=== PATIENT | female | born 1945 | race American Indian/Alaskan Native ===

== ENCOUNTER 2017-06-27 21:21 | Inpatient (IN) | payer MEDICARE ==
[2017-06-27 21:34] VITALS: BMI 31.3
--- NOTE | 2017-06-27 22:30 | ED PDOC ---
Arrival/HPI - General Chief Complaint: Weakness/Neurological Deficit Time Seen by Provider: 06/27/17 21:38 Historian: Patient - History of Present Illness Narrative History of Present Illness (Text): 06/27/17 22:30 A 71 year old female, whose past medical history includes diabetes mellitus, hypertension, toe amputation and hyperthyroidism, presents [place] [facility] to the emergency department for evaluation of swollen right upper arm, PICC line in place. Patient denies any other complaints at this time. PMD: Dr. Gilman Symptom Onset: Sudden Symptom Course: Unchanged Activities at Onset: Rest Context: Other ([facility]) Past Medical History - Provider Review Nursing Documentation Reviewed: Yes - Cardiac Hx Cardiac Disorders: No - Pulmonary Hx Respiratory Disorders: No - Neurological Hx Neurological Disorder: No - HEENT Hx HEENT Disorder: No - Renal Hx Renal Disorder: No - Endocrine/Metabolic Hx Endocrine Disorders: Yes Hx Diabetes Mellitus Type 2: Yes - Hematological/Oncological Hx Blood Disorders: No - Integumentary Hx Dermatological Disorder: No - Musculoskeletal/Rheumatological Hx Musculoskeletal Disorders: No - Gastrointestinal Hx Gastrointestinal Disorders: No - Genitourinary/Gynecological Hx Genitourinary Disorders: No - Psychiatric Hx Psychophysiologic Disorder: No Hx Substance Use: No - Surgical History Hx Amputation: Yes (4rd and 4th toe amputation on Lt foot) - Anesthesia Hx Anesthesia: Yes Hx Anesthesia Reactions: No Family/Social History - Physician Review Nursing Documentation Reviewed: Yes Family/Social History: No Known Family HX Smoking Status: Never Smoked Hx Alcohol Use: No Hx Substance Use: No Allergies/Home Meds Allergies/Adverse Reactions: Allergies No Known Allergies Allergy (Unverified 06/27/17 22:20) Review of Systems - Physician Review All systems were reviewed & negative as marked: Yes - Review of Systems Constitutional: absent: Fevers Musculoskeletal: Other (right upper arm swelling) Physical Exam Vital Signs Reviewed: Yes Vital Signs Temp Pulse Resp BP Pulse Ox 06/27/17 21:45 98.9 F 86 18 132/70 98 Temperature: Afebrile Blood Pressure: Normal Pulse: Regular Respiratory Rate: Normal Appearance: Positive for: Well-Appearing, Non-Toxic, Comfortable Pain Distress: None Mental Status: Positive for: Alert and Oriented X 3 - Systems Exam Head: Present: Atraumatic, Normocephalic Pupils: Present: PERRL Extroacular Muscles: Present: EOMI Conjunctiva: Present: Normal Mouth: Present: Moist Mucous Membranes Neck: Present: Normal Range of Motion Respiratory/Chest: Present: Clear to Auscultation, Good Air Exchange. No: Respiratory Distress, Accessory Muscle Use Cardiovascular: Present: Regular Rate and Rhythm, Normal S1, S2. No: Murmurs Abdomen: No: Tenderness, Distention, Peritoneal Signs Back: Present: Normal Inspection Upper Extremity: Present: Other (tenderness and swollen to right arm, greater hand and right humeral area, side of PICC line, warmth to area and mild erythema ) Lower Extremity: Present: Normal Inspection. No: Edema Neurological: Present: GCS=15, CN II-XII Intact, Speech Normal Skin: Present: Warm, Dry, Normal Color. No: Rashes Psychiatric: Present: Alert, Oriented x 3, Normal Insight, Normal Concentration Medical Decision Making ED Course and Treatment: 06/27/17 22:27 Impression: A 71 year old female with right upper arm swelling. Differential Diagnosis included but are not limited to: r/o DVT, cellulitis Plan: -- EKG -- Chest X-ray -- labs -- US upper extremity -- Reassess and disposition Progress Notes: 06/28/17 02:16 EKG: Ordered, reviewed, and independently interpreted the EKG. Rate : 90 BPM Rhythm : NSR Interpretation : inferior infarct, no acute changes Chest X-ray- No acute process, as read by me. US upper extremity showed Negative DVT. Spoke with Dr. Gilman, who agrees and accepts patient to be admitted, Dr. George on consult. - Lab Interpretations Lab Results: 06/27/17 23:25 06/27/17 23:25 Lab Results 06/27/17 23:25: WBC 11.9 H, RBC 3.21 L, Hgb 8.5 L, Hct 26.6 L, MCV 82.9, MCH 26.5, MCHC 32.0, RDW 14.7 H, Plt Count 434, MPV 9.9 06/27/17 23:25: Sodium 144, Potassium 4.2, Chloride 104, Carbon Dioxide 26, Anion Gap 18, BUN 38 H, Creatinine 1.8 H, Est GFR ( Amer) 33, Est GFR ( Non-Af Amer) 28, Random Glucose 126 H, Calcium 9.2, Total Bilirubin 0.5, AST 33 , ALT 19, Alkaline Phosphatase 74, Total Protein 7.4, Albumin 3.5, Globulin 3.9 , Albumin/Globulin Ratio 0.9 L 06/27/17 23:25: PT 14.9 H, INR 1.30 H, APTT 33.8 I have reviewed the lab results: Yes - RAD Interpretation Radiology Orders: 06/27/17 22:21 CHEST PORTABLE [RAD] Stat 06/27/17 22:24 DUPLEX UPPER EXTRM VEIN RIGHT [US] Stat - EKG Interpretation Interpreted by ED Physician: Yes Type: 12 lead EKG - Medication Orders Current Medication Orders: Piperacillin Sod/Tazobactam Sod (Zosyn 2.25 Gm In 0.9% 100 Ml) 2.25 gm in 100 mls @ 100 mls/hr IVPB STAT STA PRN Reason: Protocol Stop: 06/28/17 03:07 Vancomycin HCl (Vancomycin 500mg In Ns) 500 mg in 100 mls @ 200 mls/hr IVPB STAT STA PRN Reason: Protocol Stop: 06/28/17 02:38 - Scribe Statement The provider has reviewed the documentation as recorded by the Eleni Lombardo Provider Scribe Attestation: All medical record entries made by the Scribe were at my direction and personally dictated by me. I have reviewed the chart and agree that the record accurately reflects my personal performance of the history, physical exam, medical decision making, and the department course for this patient. I have also personally directed, reviewed, and agree with the discharge instructions and disposition. Disposition/Present on Arrival - Present on Arrival Any Indicators Present on Arrival: No History of DVT/PE: No History of Uncontrolled Diabetes: No Urinary Catheter: No History of Decub. Ulcer: No History Surgical Site Infection Following: None - Disposition Have Diagnosis and Disposition been Completed?: Yes Diagnosis: Cellulitis, Arm swelling Disposition: HOSPITALIZED Disposition Time: 02:13 Patient Plan: Admission Patient Problems: Current Active Problems Problem Status Onset Arm swelling Acute Cellulitis Acute Condition: STABLE Discharge Instructions (ExitCare): Cellulitis (ED) Referrals: Deisy Gilman MD [Primary Care Provider] - Follow up with primary Forms: [employer] (Malagasy)
[2017-06-27 23:51] LABS: HEMOGLOBIN 8.5 g/dL (12.0-16.0); MEAN CELL VOLUME 82.9 fl (80.0-105.0); MEAN CORPUSCULAR HEMOGLOBIN 26.5 pg (25.0-35.0); MEAN PLATELET VOLUME 9.9 fl (7.0-11.0); RBC 3.21 10^6/uL (3.5-6.1); RED CELL DISTRIBUTION WIDTH 14.7 % (11.5-14.5); WHITE BLOOD COUNT 11.9 10^3/ul (4.5-11.0)
[2017-06-27 23:58] LABS: ALB/GLOB RATIO 0.9 (1.1-1.8); ALBUMIN 3.5 g/dL (3.0-4.8); CALCIUM 9.2 mg/dL (8.4-10.5)
[2017-06-28 00:01] LABS: INR 1.3 (0.93-1.08); PARTIAL THROMBOPLASTIN TIME 33.8 Seconds (25.1-36.5); PROTHROMBIN TIME 14.9 SECONDS (9.4-12.5)
[2017-06-28] MEDS ORDERED: Piperacillin/Tazobact 2.25gm 2.25 GM/100 ML BAG IVPB STA (02:08)
[2017-06-28] MEDS ORDERED: Vancomycin 500mg in NS 500 MG/100 ML BAG IVPB STA (02:09)
--- NOTE | 2017-06-28 07:44 | RAD ---
HISTORY: fever COMPARISON: No prior. FINDINGS: LUNGS: No active pulmonary disease. PLEURA: No significant pleural effusion identified, no pneumothorax apparent. CARDIOVASCULAR: Moderate cardiomegaly OSSEOUS STRUCTURES: No significant abnormalities. VISUALIZED UPPER ABDOMEN: Normal. OTHER FINDINGS: None. IMPRESSION: No active disease.
[2017-06-28] MEDS: Insulin Reg-LOW-Coverage SC SCH ×4 (07:59→23:01)
[2017-06-28] MEDS: Oxycodone/Acetaminophen 5/325 mg Tab PO SCH ×4 (08:12→21:29)
--- NOTE | 2017-06-28 10:11 | US ---
PROCEDURE: Right upper extremity venous US CLINICAL HISTORY: Arm pain and swelling Evaluate for deep venous thrombosis. PHYSICIAN(S): Johnathan Damian M.D FINDINGS: The visualized rightinternal jugular vein is sonographically normal and compressible. No evidence of obstruction or thrombus is seen. The visualized segments of the right subclavian vein are patent with normal waveforms. No sonographic evidence of obstruction or thrombosis is seen. The visualized deep venous system of the proximal right upper extremity is sonographically normal and compressible. A catheter is noted in the right axillary and subclavian veins. No significant perihilar thin catheter thrombus is appreciated IMPRESSION: 1. No sonographic evidence for deep venous thrombosis in the visualized segments of the right upper extremity.
--- NOTE | 2017-06-28 10:53 | CARD ---
APPROVED REPORT EKG Measurement Heart [id number] <Conclusion> Normal sinus rhythm Possible Inferior infarct, age undetermined Abnormal ECG
--- NOTE | 2017-06-28 14:10 | CP.PCM.CON ---
<RexOumar - Last Filed: 06/28/17 14:17> History of Present Illness - History of Present Illness History of Present Illness: A 71 year old female, whose past medical history includes diabetes mellitus, hypertension, toe amputation and hyperthyroidism, [facility] department for evaluation of swollen right upper arm, PICC line in place. Patient denies at the time of the interview was somnolent and unable to complete a full ROS. Surgery was consulted for a sacral wound. PMD: Dr. Gilman PMH: uncontrolled DM2, HTN, dementia All: NKDA meds: see med list PSH: left foot 3rd and 4th digit amps, labial abscess I&D, left ankle surgery Family: non-contributory Social: denies smoking, alcohol, and drugs Review of Systems - Review of Systems Systems not reviewed;Unavailable: Uncooperative Past Patient History - Infectious Disease Hx of Infectious Diseases: None - Past Medical History & Family History Past Medical History?: Yes - Past Social History Smoking Status: Never Smoked - CARDIAC Hx Hypertension: Yes Other/Comment: hyperlipidemia - PULMONARY Hx Respiratory Disorders: No - NEUROLOGICAL Hx Dementia: Yes - HEENT Hx HEENT Problems: No - RENAL Hx Chronic Kidney Disease: No - ENDOCRINE/METABOLIC Hx Diabetes Mellitus Type 2: Yes Hx Hyperthyroidism: Yes - HEMATOLOGICAL/ONCOLOGICAL Hx Blood Disorders: No - INTEGUMENTARY Other/Comment: gangrene to the left foot - MUSCULOSKELETAL/RHEUMATOLOGICAL Hx Musculoskeletal Disorders: Yes Hx Falls: Yes - GASTROINTESTINAL Hx Gastrointestinal Disorders: No - GENITOURINARY/GYNECOLOGICAL Hx Incontinence: Yes - PSYCHIATRIC Hx Psychophysiologic Disorder: No - SURGICAL HISTORY Hx Surgeries: Yes Hx Amputation: Yes Other/Comment: amputation of 3rd and 4th left toes, gangrene to the left foot, I &D on 06/14 - ANESTHESIA Hx Anesthesia: Yes Hx Anesthesia Reactions: No Meds Allergies/Adverse Reactions: Allergies Allergy/AdvReac Type Severity Reaction Status Date / Time No Known Allergies Allergy Verified 01/18/17 12:18 - Medications Medications: Current Medications Acetaminophen (Tylenol 325mg Tab) 650 mg PO Q4H PRN PRN Reason: pain fever Aspirin (Aspirin Chewable) 81 mg PO DAILY [facility] Last Admin: 06/28/17 09:40 Dose: 81 mg Carvedilol (Coreg) 3.125 mg PO Q12H [facility] Last Admin: 06/28/17 08:12 Dose: 3.125 mg Clopidogrel Bisulfate (Plavix) 75 mg PO DAILY [facility] Last Admin: 06/28/17 09:40 Dose: 75 mg Famotidine (Pepcid) 40 mg PO HS [facility] Insulin Human Regular (Humulin R Low) 0 units SC ACHS [facility] PRN Reason: Protocol Last Admin: 06/28/17 12:16 Dose: Not Given Ondansetron HCl (Zofran Inj) 4 mg IVP Q6 PRN PRN Reason: Nausea/Vomiting Oxycodone/Acetaminophen (Percocet 5/325 Mg Tab) 1 tab PO Q6H [facility] Stop: 07/01/17 07:16 Last Admin: 06/28/17 13:39 Dose: 1 tab Pioglitazone HCl (Actos) 45 mg PO DAILY [facility] Last Admin: 06/28/17 09:40 Dose: 45 mg Physical Exam - Head Exam Head Exam: ATRAUMATIC, NORMAL INSPECTION, NORMOCEPHALIC - Eye Exam Eye Exam: EOMI, Normal appearance - ENT Exam ENT Exam: Mucous Membranes Moist - Respiratory Exam Respiratory Exam: NORMAL BREATHING PATTERN - Cardiovascular Exam Cardiovascular Exam: REGULAR RHYTHM - GI/Abdominal Exam GI & Abdominal Exam: Normal Bowel Sounds - Extremities Exam Additional comments: Left foot s/p amputation of toe. Wound vac in place without connection to machine. - Neurological Exam Neurological exam: Altered, CN II-XII Intact - Psychiatric Exam Psychiatric exam: Normal Affect, Normal Mood - Skin Skin Exam: Dry, Intact Results - Vital Signs Recent Vital Signs: Last Vital Signs Temp 98.3 F 06/28/17 08:12 Pulse 82 06/28/17 08:12 Resp 18 06/28/17 08:12 BP 170/82 H 06/28/17 08:12 Pulse Ox 98 06/28/17 08:12 - Labs Result Diagrams: 06/27/17 23:25 06/27/17 23:25 Labs: Laboratory Results - last 24 hr 06/28/17 06:55 POC Glucose (mg/dL) 130 H Assessment & Plan - Assessment and Plan (Free Text) Assessment: 71 year old female with s/p Incision and Drainage.(Stage 1 Ulcer) Plan: -Wound care. -Would recommend Podiatry consult. -Medical management per Primary care. No further surgical intervention at this time. Will discuss with Attending. <Francisca Irene - Last Filed: 06/28/17 14:47> Meds - Medications Medications: Current Medications Acetaminophen (Tylenol 325mg Tab) 650 mg PO Q4H PRN PRN Reason: pain fever Aspirin (Aspirin Chewable) 81 mg PO DAILY [facility] Last Admin: 06/28/17 09:40 Dose: 81 mg Carvedilol (Coreg) 3.125 mg PO Q12H [facility] Last Admin: 06/28/17 08:12 Dose: 3.125 mg Clopidogrel Bisulfate (Plavix) 75 mg PO DAILY [facility] Last Admin: 06/28/17 09:40 Dose: 75 mg Famotidine (Pepcid) 40 mg PO HS [facility] Insulin Human Regular (Humulin R Low) 0 units SC ACHS [facility] PRN Reason: Protocol Last Admin: 06/28/17 12:16 Dose: Not Given Ondansetron HCl (Zofran Inj) 4 mg IVP Q6 PRN PRN Reason: Nausea/Vomiting Oxycodone/Acetaminophen (Percocet 5/325 Mg Tab) 1 tab PO Q6H [facility] Stop: 07/01/17 07:16 Last Admin: 06/28/17 13:39 Dose: 1 tab Pioglitazone HCl (Actos) 45 mg PO DAILY [facility] Last Admin: 06/28/17 09:40 Dose: 45 mg Results - Vital Signs Recent Vital Signs: Last Vital Signs Temp 98.3 F 06/28/17 08:12 Pulse 82 06/28/17 08:12 Resp 18 06/28/17 08:12 BP 170/82 H 06/28/17 08:12 Pulse Ox 98 06/28/17 08:12 - Labs Result Diagrams: 06/27/17 23:25 06/27/17 23:25 Labs: Laboratory Results - last 24 hr 06/28/17 06:55 POC Glucose (mg/dL) 130 H Assessment & Plan - Assessment and Plan (Free Text) Plan: Catheter infection -f/u on catheter tip culture when taken out -Possible PICC replacement by PICC line nurse. KENNA Alvarez <Robbie Alvarez - Last Filed: 06/28/17 15:37> Meds - Medications Medications: Current Medications Acetaminophen (Tylenol 325mg Tab) 650 mg PO Q4H PRN PRN Reason: pain fever Aspirin (Aspirin Chewable) 81 mg PO DAILY [facility] Last Admin: 06/28/17 09:40 Dose: 81 mg Carvedilol (Coreg) 3.125 mg PO Q12H [facility] Last Admin: 06/28/17 08:12 Dose: 3.125 mg Clopidogrel Bisulfate (Plavix) 75 mg PO DAILY [facility] Last Admin: 06/28/17 09:40 Dose: 75 mg Famotidine (Pepcid) 40 mg PO HS [facility] Insulin Human Regular (Humulin R Low) 0 units SC ACHS [facility] PRN Reason: Protocol Last Admin: 06/28/17 12:16 Dose: Not Given Ondansetron HCl (Zofran Inj) 4 mg IVP Q6 PRN PRN Reason: Nausea/Vomiting Oxycodone/Acetaminophen (Percocet 5/325 Mg Tab) 1 tab PO Q6H [facility] Stop: 07/01/17 07:16 Last Admin: 06/28/17 13:39 Dose: 1 tab Pioglitazone HCl (Actos) 45 mg PO DAILY [facility] Last Admin: 06/28/17 09:40 Dose: 45 mg Results - Vital Signs Recent Vital Signs: Last Vital Signs Temp 98.3 F 06/28/17 08:12 Pulse 82 06/28/17 08:12 Resp 18 06/28/17 08:12 BP 170/82 H 06/28/17 08:12 Pulse Ox 98 06/28/17 08:12 - Labs Result Diagrams: 06/27/17 23:25 06/27/17 23:25 Labs: Laboratory Results - last 24 hr 06/28/17 06:55 POC Glucose (mg/dL) 130 H Assessment & Plan - Assessment and Plan (Free Text) Assessment: DX Stage I Sacral Ulcer R arm swelling 1 day post PICC Gangrene Foot AVELINO Remove R PICC Insert New L PICC Cons Rx sacrum Doppler Arterial studies aems/Legs No surgery needed now This consult done under my direct supervision Star Alvarez MD FACS
--- NOTE | 2017-06-28 18:36 | US ---
HISTORY: Arm pain and swelling. Evaluate for deep venous thrombosis. PHYSICIAN(S): Johnathan Damian MD. FINDINGS: The visualized internal jugular veins are sonographically normal and compressible. No evidence of obstruction or thrombus this is seen. The visualized segments of the subclavian veins are patent with normal waveforms. No sonographic evidence of obstruction or thrombosis is seen. The visualized deep venous systems of both upper extremities proximally are sonographically normal and compressible. A catheter is present in the right axillary and subclavian vein. No significant catheter-associated thrombus is seen. IMPRESSION: 1. No sonographic evidence for deep venous thrombosis in the visualized segments of both upper strategies.
--- NOTE | 2017-06-28 18:38 | US ---
PROCEDURE: Lower extremity AMISHA exam HISTORY: Peripheral vascular disease with ischemic pain. Diabetes. PHYSICIAN(S): Johnathan Damian MD. FINDINGS: The right resting AMISHA is normal, 0.96. The left resting AMISHA is mildly abnormal, 0.77 The high thigh pressures and waveforms are relatively normal. The left calf PVR waveform is normal and augments normally. The right calf PVR waveform is relatively normal but does not augment. This could represent subtle right SFA occlusive disease. The ankle PVR waveforms are relatively normal. There is a significant pressure gradient below the left knee. This likely represents left tibial occlusive disease IMPRESSION: 1. Mildly abnormal left AMISHA at rest. 2. Eft tibial occlusive disease. 3. Possible subtle right SFA occlusive disease.
[2017-06-29] MEDS: Insulin Reg-LOW-Coverage SC SCH ×4 (08:23→22:07)
[2017-06-29] MEDS: Oxycodone/Acetaminophen 5/325 mg Tab PO SCH ×3 (08:34→22:02)
--- NOTE | 2017-06-29 09:57 | CON ---
DATE: LOCATION: Patient is seen here today in room 570, bed 1. Patient's son is present in the room. CHIEF COMPLAINT: Right arm swelling times 1 day duration. HISTORY OF PRESENT ILLNESS: This is a 71-year-old female halfway patient with diabetes mellitus, hypertension, toe amputation, , dementia who has had a PICC line placement in her right arm and the patient's arm became swelled up after the placement of the PICC line. Patient did have another PICC line prior to that. Intravenous antibiotics were given because of patient's foot infection. No fevers, no chills, no nausea, no vomiting or chills. Patient does have cough, just the right arm swelling. REVIEW OF SYSTEMS: Twelve-point review of systems is performed. PAST MEDICAL HISTORY: Significant for diabetes mellitus, hypertension, toe amputation, hyperthyroidism and dementia. PAST SURGICAL HISTORY: Significant for left foot surgery, third and fourth digit amputation, labial abscess drainage, left ankle fracture. ALLERGIES: PATIENT HAS NO KNOWN ALLERGIES. MEDICATIONS AT HOME: Reviewed. PHYSICAL EXAMINATION: VITAL SIGNS: On exam, patient's temperature is 98, blood pressure is 115/70, respiratory rate of 20, heart rate of 68. HEENT: Unremarkable. NECK: Supple. LUNGS: Have decreased breath sounds. HEART: Normal S1 and S2. ABDOMEN: Soft, nontender. No rebound or guarding. EXTREMITIES: On examination of arm, there is swelling. There is no evidence of erythema or discharge. No evidence of infection. LABORATORY DATA: Reveals patient's white count is 11,900, hemoglobin 8.5, platelets of 434. BUN of 38, creatinine of 1.8. Arterial ultrasound shows tibial occlusive disease lower extremities. Ultrasound of the veins, no evidence of DVT in both extremities. Dr. Robbie Alvarez' progress note and consultation note were reviewed. Chest x-ray is ordered to be negative and Emergency Room chart is reviewed, seen by Dr. Kamari Long. REVIEW OF MEDICATIONS: Revealed the patient received dose of vancomycin. ASSESSMENT AND PLAN: A 71-year-old female, halfway patient with diabetes mellitus, hypertension, toe amputation, hyperthyroidism, dementia, now with a arm swelling from PICC line which is to be removed today, also had a right foot gangrene. We will discuss with Podiatry regarding foot infection and foot gangrene. Patient was given dose of vancomycin, I am awaiting for blood culture results and clinical resolution of the arm as the PICC line will be removed. Asim George MD
--- NOTE | 2017-06-29 10:27 | CP.PCM.PN ---
Subjective - Date & Time of Evaluation Date of Evaluation: 06/29/17 Time of Evaluation: 10:26 - Subjective Subjective: Patient seen and examined at bedside. Per nursing no acute events occurred overnight. Patient denies any fevers, chills, nausea, vomiting, headache, abdominal pain, syncopal episodes, chest pain, or any other complaints. Objective - Vital Signs/Intake and Output Vital Signs (last 24 hours): Temp Pulse Resp BP Pulse Ox 98.2 F 89 20 156/73 H 95 06/29/17 06:00 06/29/17 06:00 06/29/17 06:00 06/29/17 06:00 06/29/17 06:00 Intake and Output: 06/29/17 06/29/17 06:59 18:59 Intake Total 480 Balance 480 - Medications Medications: Current Medications Acetaminophen (Tylenol 325mg Tab) 650 mg PO Q4H PRN PRN Reason: pain fever Aspirin (Aspirin Chewable) 81 mg PO DAILY [facility] Last Admin: 06/28/17 09:40 Dose: 81 mg Carvedilol (Coreg) 3.125 mg PO Q12H [facility] Last Admin: 06/29/17 08:34 Dose: Not Given Clopidogrel Bisulfate (Plavix) 75 mg PO DAILY [facility] Last Admin: 06/28/17 09:40 Dose: 75 mg Collagenase (Santyl) 0 gm TOP DAILY [facility] Stop: 07/05/17 23:00 Famotidine (Pepcid) 40 mg PO HS [facility] Last Admin: 06/28/17 21:23 Dose: 40 mg Insulin Human Regular (Humulin R Low) 0 units SC ACHS [facility] PRN Reason: Protocol Last Admin: 06/29/17 08:23 Dose: Not Given Mupirocin (Bactroban Ointment) 0 gm TOP QD7 [facility] Ondansetron HCl (Zofran Inj) 4 mg IVP Q6 PRN PRN Reason: Nausea/Vomiting Oxycodone/Acetaminophen (Percocet 5/325 Mg Tab) 1 tab PO Q6H [facility] Stop: 07/01/17 07:16 Last Admin: 06/29/17 08:34 Dose: Not Given Pioglitazone HCl (Actos) 45 mg PO DAILY [facility] Last Admin: 06/28/17 09:40 Dose: 45 mg - Labs Labs: PT 14.9 SECONDS (9.4-12.5) H 06/27/17 23:25 INR 1.30 (0.93-1.08) H 06/27/17 23:25 APTT 33.8 Seconds (25.1-36.5) 06/27/17 23:25 - Head Exam Head Exam: ATRAUMATIC, NORMAL INSPECTION, NORMOCEPHALIC - Eye Exam Eye Exam: EOMI, Normal appearance - ENT Exam ENT Exam: Mucous Membranes Moist - Respiratory Exam Respiratory Exam: NORMAL BREATHING PATTERN - Cardiovascular Exam Cardiovascular Exam: REGULAR RHYTHM - GI/Abdominal Exam GI & Abdominal Exam: Normal Bowel Sounds - Extremities Exam Extremities Exam: Full ROM Additional comments: mputation of 3rd and 4th left toes, gangrene to the left foot, I&D on 06/14 - Back Exam Back Exam: NORMAL INSPECTION - Neurological Exam Neurological Exam: Alert, Awake - Psychiatric Exam Psychiatric exam: Normal Affect, Normal Mood - Skin Skin Exam: Dry, Intact Assessment and Plan - Assessment and Plan (Free Text) Plan: -f/u on catheter tip culture. -Podiatry to place Wound Vac -No surgical intervention at this time. KENNA Pichardo
[2017-06-29] MEDS: Collagenase 250 Units/gm Ointment(30 gm) TOP SCH (11:04)
--- NOTE | 2017-06-29 12:12 | RAD ---
PROCEDURE: Radiographs of the Right Shoulder HISTORY: pain COMPARISON: No prior. FINDINGS: BONES: Normal. No fracture. JOINTS: Normal. Glenohumeral and acromioclavicular joints preserved. No osteoarthritis. SOFT TISSUES: Normal. OTHER FINDINGS: None. IMPRESSION: Normal radiographs of the right shoulder.
--- NOTE | 2017-06-29 12:17 | RAD ---
PROCEDURE: Left Foot Radiographs. HISTORY: diabetic left foot ulcer COMPARISON: None. FINDINGS: BONES: Erosive changes are seen in the heads of the 3rd 4th and 5th metatarsals. The 4th toe has been amputated. The 5th toe is dislocated. There is bony erosion of the 3rd toe. Degenerative changes are seen in the 1st and 2nd MTP joints JOINTS: As above SOFT TISSUES: Normal. OTHER FINDINGS: None. IMPRESSION: As above
[2017-06-29] MEDS ORDERED: Bupivacaine 0.5% Inj(30mL) IJ ONE (13:25)
[2017-06-29] MEDS ORDERED: MethylPREDNISolone Depo 40 mg/ml Inj IM ONE (13:25)
--- NOTE | 2017-06-29 17:24 | CON ---
DATE: HISTORY OF PRESENT ILLNESS: A 71-year-old diabetic female seen at bedside for consultation, evaluation, and management of a chronic diabetic left lateral foot ulceration. The patient has wound VAC dressing in place, but the wound VAC machine is not present. She was admitted for swollen right upper arm. PAST MEDICAL HISTORY: The patient's medical history is significant for longstanding uncontrolled insulin-dependent diabetes with peripheral arterial disease and peripheral neuropathy, essential hypertension, morbid obesity, hyperthyroidism. ALLERGIES: THE PATIENT HAS NO KNOWN DRUG ALLERGIES. HOME MEDICATIONS: Noted and in the MAR. PAST SURGICAL HISTORY: Includes digital amputations on the left foot. SOCIAL HISTORY: The patient reports that she never smoked, never drank alcohol, never used illicit drugs. FAMILY HISTORY: Unremarkable. PHYSICAL EXAMINATION: VITAL SIGNS: Reveal temperature of 92.8, pulse rate of 89, blood pressure of 156/73, respiratory rate of 20. EXTREMITIES: Nonpalpable pedal pulses noted bilaterally. Absent pedal hair growth noted bilaterally. The patient is unable to detect 5.07 g monofilament wire testing bilaterally. Lower extremity skin presents thin, shining, and discolored bilaterally. There is noted to be a full-thickness ulceration that encompasses the entire dorsal lateral aspect of the left foot. Base of the ulceration is primarily granular, but there is some fibrotic tissue at the proximal portion of the wound and along the periphery. The periphery has become macerated secondary to wound VAC application. There is no purulence. The wound does not probe to tendon or bone. There are no signs of abscess formation or localized cellulitis, and there are no signs of ascending cellulitis. LABORATORY FINDINGS: Reveal white count 11.9, hemoglobin of 8.5, hematocrit of 26.6, platelet count of 434. The arterial Doppler's reveal mildly abnormal left AMISHA and tibial occlusive disease as well as right SFA occlusive disease. ASSESSMENT: Full-thickness left diabetic foot ulceration. PLAN: The patient's foot was examined. Culture was taken and submitted for sensitivity. X-rays were ordered to rule out osteomyelitis of the underlying osseous structures. We will order foam Multi Podus boots to offload both heels. We will order Santyl ointment to be applied to the wound to enzymatically debride the fibrotic tissue. The wound was cleansed with normal sterile saline and application of Adaptic, Santyl, and dry sterile dressing was applied. We will await x-ray results. Recommend infectious disease consult to evaluate culture and sensitivity results. Recommend vascular consult with Dr. Johnathan Damian to evaluate arterial Doppler's and determine if vascular intervention is warranted. Harrison Trujillo DPM [facility] # [id number]
[2017-06-29] MEDS: Nystatin 100,000 Units/gm Topical Pow(15 gm) TOP SCH (18:08)
--- NOTE | 2017-06-29 20:51 | HP ---
DATE OF EXAM: 06/28/2017 The patient is a 71-year-old female. The patient was seen and examined on 06/28/2017 in her room. CHIEF COMPLAINT: Swelling of the extremities. HISTORY OF PRESENT ILLNESS: Ms. Tamy Abbott is 71 years old female, has history of diabetes mellitus, hypertension, toes amputation, hyperthyroidism, was getting rehab in [facility], has swelling of the left upper extremity with PICC line done. We sent the patient to the emergency department for evaluation of swollen right upper extremity, PICC line is in place. The patient denies any complaints. No nausea, vomiting, or diarrhea. No headache. No dizziness. PAST MEDICAL HISTORY: Diabetes mellitus type 2, amputation of fourth toe of the left foot. FAMILY HISTORY: Father and mother, noncontributory. HABITS: Never smoked. No ethanol or drug use. ALLERGIES: THE PATIENT IS NOT ALLERGIC WITH ANY MEDICATIONS. HOME MEDICATIONS: Reviewed by me. REVIEW OF SYSTEMS: The patient has swelling of the upper extremity, had wound VAC on the foot. No fever, no chills. No nausea, vomiting or diarrhea. No hematuria, no hematochezia. No headache or dizziness. The patient is very poor historian. PHYSICAL EXAMINATION: VITAL SIGNS: Temperature 98.9, pulse 86, respirations 18, blood pressure 132/70 , pulse oximetry 98%. HEENT: Head normocephalic, atraumatic. Eyes: PERRLA. Extraocular muscles intact. Conjunctivae clear. Nose patent. Mucous membrane moist. NECK: Supple. No carotid bruit. No JVD or thyromegaly. CHEST: Bilaterally symmetrical. HEART: S1 and S2 positive. LUNGS: Clear to auscultation. ABDOMEN: Soft. Bowel sounds positive. No organomegaly. EXTREMITIES: Tenderness, swelling of the right arm, greater in the hand, right humeral area, site of the PICC line warm to the area and mild erythema. Lower extremities, no edema. NEUROLOGICAL: The patient is awake, alert. Moving all four extremities, following simple commands. LABORATORY DATA: White blood cell is 11.9, hemoglobin 8.5, hematocrit 26.6, and platelets 434. Sodium 144, potassium 4.2. BUN 13, creatinine 1.8. Glucose 126. ASSESSMENT: Ms. Tamy Abbott is 71 years old lady with leukocytosis, anemia, renal insufficiency, hyperglycemia. We admitted the patient, gave Zosyn, vancomycin. Admitting diagnosis is cellulitis of the right upper extremity, swollen right upper extremity. The patient has history of diabetes mellitus, uncontrolled, hypertension, toes amputation, hyperthyroidism, left foot third and fourth digit amputated, history of labial abscess incision and drainage, left ankle surgery, stage I sacral ulcer, gangrene of foot. RECOMMENDATIONS: Remove the PICC line. Insert new PICC line. Wound care of the sacrum. Doppler arterial studies and labs. According to surgeon, no surgery is needed right now. ID is on the case for antibiotics. Podiatry, Dr. Anderson is on the case. GI and DVT prophylaxis. Repeat labs. We will follow up. Deisy Gilman MD
[2017-06-29] MEDS ORDERED: Vancomycin 1gm in NS 250ml 1 GM/250 ML BAG IVPB STA (21:30)
--- NOTE | 2017-06-29 21:35 | CP.PCM.PN ---
Subjective - Date & Time of Evaluation Date of Evaluation: 06/29/17 Time of Evaluation: 13:25 - Subjective Subjective: No fevers, not in distress. Objective - Vital Signs/Intake and Output Vital Signs (last 24 hours): Temp Pulse Resp BP Pulse Ox 98.0 F 97 H 20 176/76 H 100 06/29/17 14:00 06/29/17 18:09 06/29/17 14:00 06/29/17 18:09 06/29/17 14:00 Intake and Output: 06/29/17 06/30/17 18:59 06:59 Intake Total 840 Balance 840 - Medications Medications: Current Medications Acetaminophen (Tylenol 325mg Tab) 650 mg PO Q4H PRN PRN Reason: pain fever Aspirin (Aspirin Chewable) 81 mg PO DAILY [facility] Last Admin: 06/29/17 12:50 Dose: 81 mg Carvedilol (Coreg) 3.125 mg PO Q12H [facility] Last Admin: 06/29/17 18:09 Dose: 3.125 mg Clopidogrel Bisulfate (Plavix) 75 mg PO DAILY [facility] Last Admin: 06/29/17 12:51 Dose: 75 mg Collagenase (Santyl) 0 gm TOP DAILY [facility] Stop: 07/05/17 23:00 Last Admin: 06/29/17 11:04 Dose: Not Given Famotidine (Pepcid) 40 mg PO HS [facility] Last Admin: 06/28/17 21:23 Dose: 40 mg Insulin Human Regular (Humulin R Low) 0 units SC ACHS [facility] PRN Reason: Protocol Last Admin: 06/29/17 16:46 Dose: Not Given Mupirocin (Bactroban Ointment) 0 gm TOP QD7 [facility] Nystatin (Nystop Topical Powder) 0 gm TOP BID [facility] Last Admin: 06/29/17 18:08 Dose: 1 applic Ondansetron HCl (Zofran Inj) 4 mg IVP Q6 PRN PRN Reason: Nausea/Vomiting Oxycodone/Acetaminophen (Percocet 5/325 Mg Tab) 1 tab PO Q6H [facility] Stop: 07/01/17 07:16 Last Admin: 06/29/17 12:51 Dose: 1 tab Pioglitazone HCl (Actos) 45 mg PO DAILY [facility] Last Admin: 06/29/17 12:50 Dose: 45 mg - Labs Labs: PT 14.9 SECONDS (9.4-12.5) H 06/27/17 23:25 INR 1.30 (0.93-1.08) H 06/27/17 23:25 APTT 33.8 Seconds (25.1-36.5) 06/27/17 23:25 - Constitutional Appears: Chronically Ill - Head Exam Head Exam: NORMAL INSPECTION - Cardiovascular Exam Cardiovascular Exam: +S1, +S2 - GI/Abdominal Exam GI & Abdominal Exam: Soft. absent: Tenderness Assessment and Plan - Assessment and Plan (Free Text) Plan: Assessment right foot dry gangrene with ulceration upper extremity swelling S/P PICC line removal DM HTN hyperthyroidism dementia Plan gave another dose of IV Vancomycin and follow up wound cx and xrays of the foot to rule out osteomyelitis; follow up further plans of Podiatry will monitor clinically
[2017-06-30] MEDS: Oxycodone/Acetaminophen 5/325 mg Tab PO SCH ×3 (01:06→14:21)
--- NOTE | 2017-06-30 01:33 | CON ---
DATE: 06/29/2017 ORTHOPEDIC CONSULTATION LOCATION: A 71-year-old female, in room 570, bed 1. HISTORY OF PRESENT ILLNESS: The patient has been suffering from right shoulder pain after a procedure twisted her right shoulder. X-ray shows mild osteoarthritis suggesting subacromial impingement and bursitis. She has point tenderness to the subacromial joint of the dominant right shoulder, increased pain with range of motion. I injected her with Depo-Medrol and Marcaine. There is no fluid in the shoulder, so the Depo-Medrol should help the inflammation and help her do physical therapy. FINAL DIAGNOSES: Bursitis and mild arthritis of the right shoulder, and injected Depo-Medrol and Marcaine. Raúl Melgoza DO
[2017-06-30 06:33] LABS: HEMOGLOBIN 8.5 g/dL (12.0-16.0); MEAN CELL VOLUME 82.7 fl (80.0-105.0); MEAN CORPUSCULAR HEMOGLOBIN 25.8 pg (25.0-35.0); MEAN CORPUSCULAR HGB CONC 31.3 g/dl (31.0-37.0); MEAN PLATELET VOLUME 9.4 fl (7.0-11.0); RBC 3.29 10^6/uL (3.5-6.1); RED CELL DISTRIBUTION WIDTH 14.7 % (11.5-14.5); WHITE BLOOD COUNT 9.4 10^3/ul (4.5-11.0)
[2017-06-30 06:42] VITALS: BP 174/85
[2017-06-30 07:04] LABS: CALCIUM 9.2 mg/dL (8.4-10.5)
[2017-06-30 07:37] VITALS: RESP 20
[2017-06-30] MEDS: Insulin Reg-LOW-Coverage SC SCH ×2 (08:00→14:21)
[2017-06-30] MEDS: Collagenase 250 Units/gm Ointment(30 gm) TOP SCH (09:00)
[2017-06-30] MEDS ORDERED: Enoxaparin 40 mg Syringe SC SCH (10:00)
[2017-06-30] MEDS: Nystatin 100,000 Units/gm Topical Pow(15 gm) TOP SCH (10:37)
--- NOTE | 2017-06-30 11:21 | PN ---
DATE: 06/29/2017 SUBJECTIVE: The patient is a 71-year-old female. The patient was seen and examined on the bedside on 06/29/2017, looking comfortable. No nausea, vomiting or diarrhea. No hematuria or hematochezia. No headache or dizziness. No chest pain, no palpitations. Looking comfortable except that pain in the left shoulder, range of motion is decreased. Has PICC line. PHYSICAL EXAMINATION: VITAL SIGNS: Temperature 98, pulse 97, respiratory rate 20, blood pressure 176/76, pulse oximetry 100. HEENT: Head: Normocephalic, atraumatic. Eyes: PERRLA. Extraocular muscles intact. Conjunctivae clear. Nose patent. Mucous membrane moist. NECK: Supple. No carotid bruit. No JVD or thyromegaly. CHEST: Bilaterally symmetrical. HEART: S1 and S2 positive. LUNGS: Clear to auscultation. ABDOMEN: Soft. Bowel sounds positive. No organomegaly. EXTREMITIES: No edema. No cyanosis. Right shoulder range of motion is decreased. Has PICC line. Foot has wound VAC. MEDICATIONS: Tylenol, aspirin, Coreg, Plavix, fentanyl, Pepcid, nystatin, Zofran, oxycodone, Actos. LABORATORY DATA: INR is 1.30, PT 14.9, APTT 33.8. ASSESSMENT AND PLAN: Ms. Tamy Abbott is a 71-year-old lady with right foot dry gangrene with ulceration, upper extremity swelling, has PICC line removal, diabetes mellitus, hypertension, hyperthyroidism, dementia. Got vancomycin. We will follow up wound culture and x-ray of the foot to rule out osteomyelitis and Podiatry is on the case. Seen by Dr. Melgoza for shoulder pain. X-ray shows osteoarthritis suggesting subacromial impingement and bursitis. She has point tenderness over the subacromial joint of the dominant right shoulder, increased pain with range of motion. Dr. Melgoza injected her with Depo-Medrol and Marcaine. There is no fluid in the shoulder, so the Depo-Medrol should be helpful in the inflammation, help her do physical therapy. Gastrointestinal and deep venous thrombosis prophylaxis. Repeat labs. We will follow up. Deisy Gilman MD [facility] # [id number]
[2017-06-30 11:22] LABS: IRON 19 ug/dL (45-180)
[2017-06-30 11:31] LABS: % IRON SATURATION 10 % (20-55); TOTAL IRON BINDING CAPACITY 192 ug/dL (265-497)
--- NOTE | 2017-06-30 13:14 | PN ---
DATE: 06/30/2017 SUBJECTIVE: A 71-year-old diabetic female seen at bedside for continued evaluation and management of a chronic diabetic left lateral foot ulceration. The patient is reporting no pain at the ulceration site. She has been afebrile. The patient's vital signs revealed a temperature of 98, blood pressure 174/85, respiratory rate of 20, pulse rate of 93. Laboratory findings revealed white count of 9.4, down from 11.9 yesterday; hemoglobin of 8.5; hematocrit of 27.2; platelet count of 481. X-rays taken of the left foot revealed erosive changes adhered to the third, fourth and fifth metatarsals. Fourth toe has been amputated. Fifth toe was dislocated, but there are no radiographic signs of osteomyelitis at this time. Microbiology reports no organisms preliminarily of the left foot ulceration. OBJECTIVE: Nonpalpable pedal pulses noted bilaterally. Absent pedal hair growth noted bilaterally. The patient is unable to detect 5.07 g monofilament wire testing bilaterally. There is noted to be a full-thickness ulceration that encompasses the entire dorsolateral aspect of the left foot and base of the ulceration remains primarily granular with moderate clear serous drainage. The proximal portion of the wound has presence of fibrotic tissue. The wound does not probe to tendon or bone. There is no underlying abscess formation. There is no sinus tracking noted. ASSESSMENT: Full-thickness left diabetic foot ulceration. PLAN: There is noted to be a wound VAC machine placed at bedside; however, the patient was brought in with a wound VAC placement, but no longer requires wound VAC management at this time as the wound has been granulating in nicely and there is no sinus tracks noted. Culture results were reviewed. X-rays were reviewed. Multi Podus boots were in place. The wound was cleansed with normal sterile saline. We will continue to apply Santyl ointment to the fibrotic tissue along with a nonadherent sterile dressing and a dry sterile dressing daily. The patient will be seen and followed daily. Harrison Trujillo DPM
[2017-06-30 16:48] VITALS: PULSE 99; TEMP 98.2; O2SAT 100
[2017-06-30 18:59] LABS: FOLATE 15.8 ng/mL
--- NOTE | 2017-07-01 08:04 | PN ---
DATE: 06/30/2017 SUBJECTIVE: The patient was seen earlier this morning in room 570, bed 1. Her arm is completely normalized. The edema has gone down. She has able to flex and extend her right hand. PHYSICAL EXAMINATION: VITAL SIGNS: Temperature is 98, blood pressure is 170/80, respiratory rate of 20, heart rate of 93. HEENT: Unremarkable. NECK: Supple. LUNGS: Have decreased breath sounds. HEART: Normal S1 and S2. ABDOMEN: Soft, nontender. LABORATORY DATA: Reveals a white count of 9.4, hemoglobin of 8. Chemistries reveals BUN of 33, creatinine of 1.7 and coagulation is noted. Microbiology reveals left foot, no growth. Blood cultures, no growth. ASSESSMENT AND PLAN: This is a 71-year-old female with right foot dry gangrene and ulceration, upper extremity swelling, status post peripherally inserted central catheter line removal, diabetic, hypertensive, hyperthyroidism, dementia. Continue antibiotics as recommended by Dr. Kuo for foot infection and to be followed up with him and infectious disease doctor requests hospital and . Asim George MD
== END 2017-06-30 17:49 | DRG 315 ==
LOC: ED 21:21 → MERGE 06-28 02:10 → ERH 06-28 02:10 → 5RSO 06-28 05:20
PROVIDERS: ADMIT Internal Medicine; ATTEND Internal Medicine
PROC: 02HV33Z Insertion of Infusion Device into Superior Vena Cava, Percutaneous Approach (ICD-10-PCS; principal; 2017-06-28)
PROC: B548ZZA Ultrasonography of Superior Vena Cava, Guidance (ICD-10-PCS; 2017-06-28)
PROC: 02PYX3Z Removal of Infusion Device from Great Vessel, External Approach (ICD-10-PCS; 2017-06-28)
PROC: 3E0U33Z Introduction of Anti-inflammatory into Joints, Percutaneous Approach (ICD-10-PCS; 2017-06-29)
PROC: 3E0U3BZ Introduction of Anesthetic Agent into Joints, Percutaneous Approach (ICD-10-PCS; 2017-06-29)
DX: T80.212A Local infection due to central venous catheter, initial encounter (principal); L03.113 Cellulitis of right upper limb; E11.52 Type 2 diabetes mellitus with diabetic peripheral angiopathy with gangrene; I10 Essential (primary) hypertension; E11.65 Type 2 diabetes mellitus with hyperglycemia; E11.42 Type 2 diabetes mellitus with diabetic polyneuropathy; E11.621 Type 2 diabetes mellitus with foot ulcer; L97.529 Non-pressure chronic ulcer of other part of left foot with unspecified severity; L97.519 Non-pressure chronic ulcer of other part of right foot with unspecified severity; L98.429 Non-pressure chronic ulcer of back with unspecified severity; D64.9 Anemia, unspecified; E05.90 Thyrotoxicosis, unspecified without thyrotoxic crisis or storm; F03.90 Unspecified dementia, unspecified severity, without behavioral disturbance, psychotic disturbance, mood disturbance, and anxiety; M19.011 Primary osteoarthritis, right shoulder; M75.51 Bursitis of right shoulder; Z79.4 Long term (current) use of insulin; Y84.8 Other medical procedures as the cause of abnormal reaction of the patient, or of later complication, without mention of misadventure at the time of the procedure; Z89.422 Acquired absence of other left toe(s)

== ENCOUNTER 2017-07-14 21:42 | Inpatient (IN) | payer MEDICARE ==
--- NOTE | 2017-07-14 22:16 | ED PDOC ---
Arrival/HPI - General Chief Complaint: Altered Mental Status Time Seen by Provider: 07/14/17 21:45 Historian: Patient, Alf - History of Present Illness Narrative History of Present Illness (Text): 07/14/17 22:16 A 71 year old female, whose past medical history includes diabetes mellitus, hypertension, toe amputation and hyperthyroidism, is brought into the emergency department complaining via EMS from assisted for poor responsiveness. The patient is currently being treated with IV antibiotics following the amputation of 2 toes of the left foot. When asked, patient does not recollect what happened to her. Patient just keeps saying "they cut my toes off". She denies any shortness of breath or chest pain. Patient is a poor historian. PMD: Dr. iGlman Time/Duration: Other (Today) Symptom Onset: Sudden Symptom Course: Unchanged Activities at Onset: Rest, Light Context: Home (Alf) Past Medical History - Provider Review Nursing Documentation Reviewed: Yes - Infectious Disease Hx of Infectious Diseases: None - Cardiac Hx Cardiac Disorders: Yes (HTN, high cholesterol) - Pulmonary Hx Respiratory Disorders: No - Neurological Hx Dementia: Yes - HEENT Hx HEENT Disorder: No - Renal Hx Renal Disorder: No - Endocrine/Metabolic Hx Diabetes Mellitus Type 2: Yes - Hematological/Oncological Hx Blood Disorders: No - Integumentary Hx Dermatological Disorder: Yes - Musculoskeletal/Rheumatological Hx Musculoskeletal Disorders: Yes Hx Falls: Yes - Gastrointestinal Hx Gastrointestinal Disorders: No - Genitourinary/Gynecological Hx Incontinence: Yes - Psychiatric Hx Psychophysiologic Disorder: No Hx Substance Use: No - Surgical History Other/Comment: labial abscess removed-incision and drainage. left leg. left foot. 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 - Anesthesia Hx Anesthesia: Yes Hx Anesthesia Reactions: No - Suicidal Assessment Feels Threatened In Home Enviroment: No Family/Social History - Physician Review Nursing Documentation Reviewed: Yes Family/Social History: No Known Family HX Smoking Status: Never Smoked Hx Alcohol Use: No Hx Substance Use: No Allergies/Home Meds Allergies/Adverse Reactions: Allergies No Known Allergies Allergy (Verified 01/18/17 12:18) Home Medications: Home Meds Medication Instructions Recorded Confirmed Aspirin [Ecotrin] 81 mg PO DAILY 01/18/17 06/14/17 Insulin Degludec [Tresiba 30 unit SC HS 01/18/17 06/14/17 Flextouch U-200] Pioglitazone [Actos] 45 mg PO DAILY 01/18/17 06/14/17 Propranolol HCl 10 mg PO Q8 06/14/17 06/14/17 Aspirin [Sullivan Aspirin] 81 mg PO DAILY 06/28/17 06/28/17 Carvedilol [Coreg] 3.125 mg PO Q12H 06/28/17 06/28/17 Clopidogrel [Plavix] 75 mg PO DAILY 06/28/17 06/28/17 Meropenem [Merrem IV] 1 gm IVPB Q8H 06/28/17 06/28/17 Pioglitazone [Actos] 45 mg PO DAILY 06/28/17 06/28/17 Vancomycin 1 GM [Vancomycin 1GM in 1,250 mg IVPB DAILY 06/28/17 06/28/17 Normal Saline Addvantage] oxyCODONE/Acetaminophen [Percocet 1 tab PO Q6H 06/28/17 06/28/17 5/325 mg Tab] Review of Systems - Physician Review All systems were reviewed & negative as marked: Yes - Review of Systems Respiratory: absent: SOB Cardiovascular: absent: Chest Pain Physical Exam Vital Signs Reviewed: Yes Vital Signs Temp Pulse Resp BP Pulse Ox 07/15/17 01:27 84 18 175/83 H 100 07/14/17 22:01 98.4 F 87 18 189/88 H 97 Temperature: Afebrile Blood Pressure: Normal Pulse: Regular Respiratory Rate: Normal Appearance: Positive for: Well-Appearing, Non-Toxic, Comfortable Pain Distress: None Mental Status: Positive for: Alert and Oriented X 3 (Alert and Oriented x2 ( place and person)) - Systems Exam Head: Present: Atraumatic, Normocephalic Pupils: Present: PERRL Extroacular Muscles: Present: EOMI Conjunctiva: Present: Normal Mouth: Present: Moist Mucous Membranes Neck: Present: Normal Range of Motion Respiratory/Chest: Present: Clear to Auscultation, Good Air Exchange. No: Respiratory Distress, Accessory Muscle Use Cardiovascular: Present: Regular Rate and Rhythm, Normal S1, S2. No: Murmurs Abdomen: No: Tenderness, Distention, Peritoneal Signs Back: Present: Normal Inspection Upper Extremity: Present: Swelling (Swelling to right hand (old)), Other Lower Extremity: Present: Other (Patient has amputated 3rd and 4th digits of left foot. No discharge noted.) Neurological: Present: GCS=15, CN II-XII Intact, Speech Normal, Other (Patient awake, alert. No focal neurological deficits. ) Skin: Present: Warm, Dry, Normal Color. No: Rashes Psychiatric: Present: Alert, Oriented x 3, Normal Insight, Normal Concentration Medical Decision Making ED Course and Treatment: 07/14/17 22:24 Impression: A 71 year old female presents to the emergency department via EMS from assisted for unresponsiveness. Plan: -- Head CT -- EKG -- Chest X-Ray -- Blood/ Urine Culture -- Urinalysis -- IV Fluids -- Labs -- Reassess and disposition Progress Notes: EKG: Ordered, reviewed, and independently interpreted the EKG. Rate : 85 BPM Rhythm : NSR Interpretation : Non-specific T-wave changes. 07/15/17 00:20: Chest X-Ray read and interpreted by me shows no acute processes. 07/15/17 00:50: Case discussed in detail with Dr. Gilman who accepts patient to her service. Requests Dr. Pack and Dr. Burks on consult. CT Head Without Intravenous Contrast Dictated and Authenticated by: Jodi Fuentes MD 07/15/2017 1:28 AM Eastern Time ([place] & [place]) IMPRESSION: No evidence of an acute intracranial hemorrhage, midline shift or mass effect is identified. - Lab Interpretations Lab Results: 07/14/17 22:54 07/14/17 22:54 Lab Results 07/15/17 00:43: Urine Color Yellow, Urine Appearance Sl cloudy, Urine pH 6.0, Ur Specific [place] 1.025, Urine Protein 100 H, Urine Glucose (UA) Negative, Urine Ketones Trace H, Urine Blood Large H, Urine Nitrate Negative, Urine Bilirubin Negative, Urine Urobilinogen 0.2, Ur Leukocyte Esterase Moderate H, Urine RBC 15 - 20, Urine WBC 10 - 15, Ur Epithelial Cells 4 - 5, Urine Bacteria Few, Urine Other Uyeast 07/14/17 22:54: pO2 157 H, VBG pH 7.43, VBG pCO2 49.0, VBG HCO3 32.5 H, VBG Total CO2 34.0 H, VBG O2 Sat (Calc) 99.8 H, VBG Base Excess 6.9 H, VBG Potassium 3.8, Sodium 140.0, Chloride 110.0 H, Glucose 59 L, Lactate 0.6 L, FiO2 21.0, Venous Blood Potassium 3.8 07/14/17 22:54: PT 13.9 H, INR 1.21 H, APTT 39.8 H 07/14/17 22:54: WBC 10.9, RBC 3.15 L, Hgb 8.0 L, Hct 25.6 L, MCV 81.3, MCH 25.4 , MCHC 31.3, RDW 15.8 H, Plt Count 358, MPV 9.6 07/14/17 22:54: Sodium 144, Chloride 106, Potassium 3.9, Carbon Dioxide 26, Anion Gap 15, BUN 26 H, Creatinine 2.1 H, Est GFR ( Amer) 28, Est GFR ( Non-Af Amer) 23, Random Glucose 58 L, Calcium 8.3 L, Total Bilirubin 0.2, AST 15 , ALT 18, Alkaline Phosphatase 61, Lactate Dehydrogenase 660, Total Creatine Kinase 74, Troponin I < 0.01, Total Protein 6.4, Albumin 2.9 L, Globulin 3.5, Albumin/Globulin Ratio 0.8 L I have reviewed the lab results: Yes - RAD Interpretation Radiology Orders: 07/14/17 22:15 HEAD W/O CONTRAST [CT] Stat 07/14/17 22:16 CHEST PORTABLE [RAD] Stat - EKG Interpretation Interpreted by ED Physician: Yes Type: 12 lead EKG - Medication Orders Current Medication Orders: Sodium Chloride (Sodium Chloride 0.9%) 1,000 mls @ 100 mls/hr IV .Q10H NIDHI Last Admin: 07/14/17 23:04 Dose: 100 mls/hr eMAR Start Stop Document 07/14/17 23:04 OCS (Rec: 07/14/17 23:04 OCS [id number]) Intravenous Solution Start Date 07/14/17 Start Time 23:04 Ceftriaxone Sodium (Rocephin 1 Gram Ivpb) 1 gm in 100 mls @ 200 mls/hr IV ONCE STA PRN Reason: Protocol Stop: 07/15/17 01:50 - Scribe Statement The provider has reviewed the documentation as recorded by the Eleni Morse Provider Scribe Attestation: All medical record entries made by the Scribe were at my direction and personally dictated by me. I have reviewed the chart and agree that the record accurately reflects my personal performance of the history, physical exam, medical decision making, and the department course for this patient. I have also personally directed, reviewed, and agree with the discharge instructions and disposition. Disposition/Present on Arrival - Present on Arrival Any Indicators Present on Arrival: No History of DVT/PE: No History of Uncontrolled Diabetes: Yes Urinary Catheter: No History of Decub. Ulcer: No History Surgical Site Infection Following: None - Disposition Have Diagnosis and Disposition been Completed?: Yes Diagnosis: Near syncope, Altered mental status, UTI (urinary tract infection) Disposition: HOSPITALIZED Disposition Time: 00:49 Patient Problems: Current Active Problems Problem Status Onset Altered mental status Acute Near syncope Acute UTI (urinary tract infection) Acute Condition: STABLE
[2017-07-14 22:58] LABS: MEAN CELL VOLUME 81.3 fl (80.0-105.0); MEAN CORPUSCULAR HEMOGLOBIN 25.4 pg (25.0-35.0); MEAN CORPUSCULAR HGB CONC 31.3 g/dl (31.0-37.0); MEAN PLATELET VOLUME 9.6 fl (7.0-11.0); RBC 3.15 10^6/uL (3.5-6.1); RED CELL DISTRIBUTION WIDTH 15.8 % (11.5-14.5); VENOUS BLOOD GAS BASE EXCESS 6.9 mmol/L (0.0-2.0); VENOUS BLOOD GAS PO2 157 mm/Hg (30-55); VENOUS BLOOD PH 7.43 (7.32-7.43); WHITE BLOOD COUNT 10.9 10^3/ul (4.5-11.0)
[2017-07-14] MEDS: Sodium Chloride 0.9% 1,000 ML IV SCH (23:04)
[2017-07-14 23:08] LABS: INR 1.21 (0.93-1.08); PARTIAL THROMBOPLASTIN TIME 39.8 Seconds (25.1-36.5); PROTHROMBIN TIME 13.9 SECONDS (9.4-12.5)
[2017-07-14 23:14] LABS: ALB/GLOB RATIO 0.8 (1.1-1.8); ALBUMIN 2.9 g/dL (3.0-4.8); ALT/SGPT 18 U/L (7-56); AST/SGOT 15 U/L (14-36); BLOOD UREA NITROGEN 26 mg/dL (7-21); CALCIUM 8.3 mg/dL (8.4-10.5); GFR AFRICAN-AMERICAN 28; GFR NON-AFRICAN AMERICAN 23
[2017-07-14 23:20] LABS: TROPONIN I < 0.01 ng/mL
[2017-07-15 01:07] LABS: URINE BILIRUBIN NEGATIVE (NEGATIVE); URINE BLOOD LARGE (NEGATIVE); URINE GLUCOSE (UA) NEGATIVE (NEGATIVE); URINE LEUKOCYTE ESTERASE MODERATE Leu/uL (NEGATIVE); URINE PROTEIN 100 mg/dL (<30 mg/dL); URINE UROBILINOGEN 0.2 E.U./dL (<1 E.U./dL)
[2017-07-15 01:10] LABS: URINE APPEARANCE SL CLOUDY (CLEAR); URINE COLOR YELLOW (YELLOW)
[2017-07-15 01:19] LABS: URINE BACTERIA FEW (NEG); URINE RBC 15 - 20 /hpf (0-2)
[2017-07-15] MEDS ORDERED: cefTRIAXone 1 gm 1 GM/100 ML BAG IV STA (01:21)
--- NOTE | 2017-07-15 01:28 | CT ---
EXAM: CT Head Without Intravenous Contrast CLINICAL HISTORY: 71 years old, female; Signs and symptoms; Altered mental status/memory loss; Additional info: AMS TECHNIQUE: Axial computed tomography images of the head/brain without intravenous contrast. All CT scans at this facility use one or more dose reduction techniques, viz.: automated exposure control; ma/kV adjustment per patient size (including targeted exams where dose is matched to indication; i.e. head); or iterative reconstruction technique. Axial images are submitted in brain and bone windows. 380 images are submitted. Coronal and sagittal reformatted images were created and reviewed. COMPARISON: No relevant prior studies available. FINDINGS: Brain: Bilateral basal ganglia calcifications. No hemorrhage.Cerebral and cerebellar volume loss. Patchy hypodensity is seen in the periventricular and subcortical white matter. Ventricles: Unremarkable. No ventriculomegaly. Bones/joints: Left middle cranial fossa prominent extra axial space likely representing an arachnoid cyst. No acute fracture. Soft tissues: Unremarkable. Vasculature: Vascular calcifications. Sinuses: Unremarkable. No acute sinusitis. Mastoid air cells: Unremarkable. No mastoid effusion. IMPRESSION: No evidence of an acute intracranial hemorrhage, midline shift or mass effect is identified.
[2017-07-15] MEDS ORDERED: Non Formulary Medication (Meropenem [Merrem Iv] 1 GM) IV SCH (02:15)
[2017-07-15] MEDS ORDERED: Meropenem 500 MG in NS 0.9% 50 ML IVPB SCH (02:45)
[2017-07-15] MEDS ORDERED: Dextrose 50% SYRINGE Inj (50 ml) IVP ONE (02:59)
[2017-07-15] MEDS ORDERED: Pneumococcal 23-Valent Vaccine IM ONE (05:23)
[2017-07-15 05:24] VITALS: BMI 32.0
[2017-07-15] MEDS: Insulin Reg-LOW-Coverage SC SCH ×4 (08:00→21:48)
[2017-07-15] MEDS: Sodium Chloride 0.9% 1,000 ML IV SCH (08:30)
--- NOTE | 2017-07-15 08:56 | RAD ---
HISTORY: ams COMPARISON: 06/27/2017 FINDINGS: LUNGS: No active pulmonary disease. PLEURA: No significant pleural effusion identified, no pneumothorax apparent. CARDIOVASCULAR: Mild cardiomegaly OSSEOUS STRUCTURES: No significant abnormalities. VISUALIZED UPPER ABDOMEN: Normal. OTHER FINDINGS: None. IMPRESSION: No active disease.
[2017-07-15] MEDS ORDERED: NORMAL SALINE ADDVANTAGE IVPB SCH (10:00)
[2017-07-15] MEDS ORDERED: [UNRECOGNIZED DRUG - OTHER] IVPB SCH (10:00)
[2017-07-15] MEDS ORDERED: VANCOMYCIN IVPB SCH (10:00)
[2017-07-15] MEDS ORDERED: Vancomycin 1.25 GM in Sodium Chloride 0.9% 500 ML IVPB SCH (10:00)
[2017-07-15 10:01] LABS: ALB/GLOB RATIO 0.8 (1.1-1.8); ALBUMIN 2.7 g/dL (3.0-4.8); CALCIUM 8.1 mg/dL (8.4-10.5)
[2017-07-15] MEDS: Dextrose 5%/0.9% NS 1,000 ML IV SCH (12:35)
--- NOTE | 2017-07-15 13:45 | CARD ---
APPROVED REPORT EKG Measurement Heart [id number] <Conclusion> Normal sinus rhythm Q in 3 Nonspecific T wave abnormality Prolonged QT
--- NOTE | 2017-07-15 16:23 | CP.PCM.CON ---
History of Present Illness - History of Present Illness History of Present Illness: Infectious Disease Consultation: July 15, 2017 71 yo AA female sent from [facility] for poor responsiveness. 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 History of E. coli and enterococcus. The E. coli is ESBL+. The patient can give little history of her own. She is currently awake and alert now. The patient was on IV Vancomycin at [place]. Unclear if she was still on Meropenem there. Renal insufficiency. The patient had normal creatinine in June 2017. PMHx: DM2, HTN, Dementia PSHx: left foot 3rd and 4th digit amputation, labial abscess I&D, left ankle surgery Allergies: NKDA Social Hx: Denied tobacco, EtOH, or illicit drug use. Active Medications Acetaminophen (Tylenol 325mg Tab) 650 mg PO Q4H PRN PRN Reason: pain fever Aspirin (Aspirin Chewable) 81 mg PO DAILY [facility] Last Admin: 07/15/17 09:27 Dose: 81 mg Carvedilol (Coreg) 3.125 mg PO Q12 [facility] Last Admin: 07/15/17 09:26 Dose: 3.125 mg Clopidogrel Bisulfate (Plavix) 75 mg PO DAILY [facility] Last Admin: 07/15/17 09:26 Dose: 75 mg Famotidine (Pepcid) 40 mg PO HS [facility] Ferrous Sulfate (Feosol) 324 mg PO BID [facility] Last Admin: 07/15/17 09:26 Dose: 324 mg Vancomycin HCl 1.25 gm/ Sodium (Chloride) 500 mls @ 167 mls/hr IVPB DAILY [facility] Last Admin: 07/15/17 09:27 Dose: 167 mls/hr Dextrose/Sodium Chloride (Dextrose 5%/0.9% Ns 1000 Ml) 1,000 mls @ 80 mls/hr IV .[id number] [facility] Last Admin: 07/15/17 12:35 Dose: 80 mls/hr Insulin Human Regular (Humulin R Low) 0 units SC ACHS [facility] PRN Reason: Protocol Last Admin: 07/15/17 16:35 Dose: Not Given Insulin Degludec [ Tresiba Flextouch U- 200] 30 unit SC HS [facility] Pioglitazone HCl (Actos) 45 mg PO DAILY [facility] Propranolol HCl (Inderal) 10 mg PO Q8 [facility] Last Admin: 07/15/17 13:54 Dose: 10 mg Sitagliptin Phosphate (Januvia) 25 mg PO DAILY [facility] Family Hx: none given ROS: unable to obtain from the patient. Past Patient History - Infectious Disease Hx of Infectious Diseases: None - Past Medical History & Family History Past Medical History?: Yes - Past Social History Smoking Status: Never Smoked - CARDIAC Hx Cardiac Disorders: Yes Hx Hypertension: Yes - PULMONARY Hx Respiratory Disorders: No - NEUROLOGICAL Hx Dementia: Yes - HEENT Hx HEENT Problems: No - RENAL Hx Chronic Kidney Disease: No - ENDOCRINE/METABOLIC Hx Diabetes Mellitus Type 2: Yes Hx Hypothyroidism: Yes - HEMATOLOGICAL/ONCOLOGICAL Hx Blood Disorders: No - INTEGUMENTARY Hx Dermatological Problems: Yes - MUSCULOSKELETAL/RHEUMATOLOGICAL Hx Musculoskeletal Disorders: Yes Hx Falls: Yes - GASTROINTESTINAL Hx Gastrointestinal Disorders: No - GENITOURINARY/GYNECOLOGICAL Hx Hematuria: Yes Hx Incontinence: Yes Hx Urinary Tract Infection: Yes - PSYCHIATRIC Hx Psychophysiologic Disorder: No - SURGICAL HISTORY Other/Comment: labial abscess removed-incision and drainage. left leg. left foot. 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 - ANESTHESIA Hx Anesthesia: Yes Hx Anesthesia Reactions: No Meds Allergies/Adverse Reactions: Allergies Allergy/AdvReac Type Severity Reaction Status Date / Time No Known Allergies Allergy Verified 01/18/17 12:18 - Medications Medications: Current Medications Acetaminophen (Tylenol 325mg Tab) 650 mg PO Q4H PRN PRN Reason: pain fever Aspirin (Aspirin Chewable) 81 mg PO DAILY [facility] Last Admin: 07/15/17 09:27 Dose: 81 mg Carvedilol (Coreg) 3.125 mg PO Q12 [facility] Last Admin: 07/15/17 09:26 Dose: 3.125 mg Clopidogrel Bisulfate (Plavix) 75 mg PO DAILY [facility] Last Admin: 07/15/17 09:26 Dose: 75 mg Famotidine (Pepcid) 40 mg PO HS [facility] Ferrous Sulfate (Feosol) 324 mg PO BID [facility] Last Admin: 07/15/17 09:26 Dose: 324 mg Vancomycin HCl 1.25 gm/ Sodium (Chloride) 500 mls @ 167 mls/hr IVPB DAILY [facility] Last Admin: 07/15/17 09:27 Dose: 167 mls/hr Dextrose/Sodium Chloride (Dextrose 5%/0.9% Ns 1000 Ml) 1,000 mls @ 80 mls/hr IV .[id number] [facility] Last Admin: 07/15/17 12:35 Dose: 80 mls/hr Insulin Human Regular (Humulin R Low) 0 units SC ACHS [facility] PRN Reason: Protocol Last Admin: 07/15/17 12:00 Dose: Not Given Insulin Degludec [ Tresiba Flextouch U- 200] 30 unit SC HS [facility] Pioglitazone HCl (Actos) 45 mg PO DAILY [facility] Propranolol HCl (Inderal) 10 mg PO Q8 [facility] Last Admin: 07/15/17 13:54 Dose: 10 mg Sitagliptin Phosphate (Januvia) 25 mg PO DAILY [facility] Physical Exam - Constitutional Appears: Non-toxic, No Acute Distress, Chronically Ill - Head Exam Head Exam: ATRAUMATIC, NORMOCEPHALIC - Eye Exam Eye Exam: EOMI, PERRL Pupil Exam: NORMAL ACCOMODATION, PERRL - ENT Exam ENT Exam: Mucous Membranes Moist, Normal External Ear Exam, TM's Normal Bilaterally - Respiratory Exam Respiratory Exam: Clear to Auscultation Bilateral, NORMAL BREATHING PATTERN. absent: Rales, Rhonchi, Wheezes - Cardiovascular Exam Cardiovascular Exam: REGULAR RHYTHM, RRR, +S1, +S2 - GI/Abdominal Exam GI & Abdominal Exam: Normal Bowel Sounds, Soft. absent: Distended, Tenderness - Extremities Exam Additional comments: Left foot with 3rd and 4th toe amputations - Neurological Exam Neurological exam: Alert, Altered, CN II-XII Intact, Oriented x3 - Psychiatric Exam Psychiatric exam: Normal Affect, Normal Mood - Skin Skin Exam: Dry, Normal Color Results - Vital Signs Recent Vital Signs: Last Vital Signs Temp 98.2 F 07/15/17 12:00 Pulse 87 07/15/17 14:00 Resp 16 07/15/17 12:00 BP 137/69 07/15/17 13:54 Pulse Ox 96 07/15/17 02:22 - Labs Result Diagrams: 07/14/17 22:54 07/15/17 09:35 Labs: Laboratory Results - last 24 hr 07/15/17 16:09 POC Glucose (mg/dL) 80 Assessment & Plan - Assessment and Plan (Free Text) Assessment: 71 yo AA female with altered renal function and was poorly responsive at [facility]. The patient was on Vancomycin for antibiotic treatment. Will restart Meropenem and check Vancomycin levels fist given worsening creatinine levels. Local wound care. May need to consider Zyvox over Vancomycin for treatment given renal function. Thank you for allowing me to participate in the care of the patient, we will follow with you.
[2017-07-15] MEDS: Insulin Degludec [Tresiba Flextouch U-200] SC SCH (21:49)
[2017-07-15] MEDS: Meropenem 500 MG in Sodium Chloride 0.9% 50 ML IVPB SCH (21:57)
--- NOTE | 2017-07-16 02:09 | CON ---
DATE: 07/15/2017 HISTORY OF PRESENT ILLNESS: This is 71-year-old female with past medical history of diabetes, hypertension, toe amputation, hypothyroidism who came to the hospital from the long-term with a poor responsiveness. The patient was being treated with IV antibiotics and the patient has difficult to recollect what happened and called to evaluate the patient. PAST MEDICAL HISTORY: Past medical history of diabetes, hypertension, status post amputation of the toes, hyperthyroidism. ALLERGIES: NO KNOWN DRUG ALLERGY. HOME MEDICATIONS: Aspirin, insulin, Actos, Propranolol, carvedilol, Plavix and vancomycin and oxycodone. PHYSICAL EXAMINATION: VITAL SIGNS: Blood pressure on examination 189/88. HEENT: Normocephalic, atraumatic. NECK: Supple. NEUROLOGIC: Awake, oriented to self and Cranial nerves II through XII were tested. Pupils reactive. Spontaneous movement of the extremities noted. Deep tendon reflexes are 1+. There is a bandage around the left foot and cerebellar, gait deferred. IMPRESSION: The patient has altered mental status. The patient does not remember the episode and continue present management. CAT scan of the head was done which was reported negative. No bleeds. No infarct. Dr. Pack is on the case, so back on the medication as per Dr. Pack. Eugene Burks MD
[2017-07-16] MEDS: Dextrose 5%/0.9% NS 1,000 ML IV SCH ×2 (06:16→12:21)
[2017-07-16 07:01] LABS: BASO # 0.02 K/mm3 (0.0-2.0); BASO % 0.2 % (0.0-3.0); EOS # 0.3 (0.0-0.7); GRAN # 5.96 (1.4-6.5); GRAN % 66.9 % (50.0-68.0); HEMOGLOBIN 7.8 g/dL (12.0-16.0); LYMPH # 1.4 (1.2-3.4); LYMPH % 16.1 % (22.0-35.0); MEAN CELL VOLUME 81.1 fl (80.0-105.0); MEAN CORPUSCULAR HEMOGLOBIN 25.4 pg (25.0-35.0); MEAN CORPUSCULAR HGB CONC 31.3 g/dl (31.0-37.0); MEAN PLATELET VOLUME 9.8 fl (7.0-11.0); MONO # 1.2 (0.1-0.6); MONO % 13.8 % (1.0-6.0); RBC 3.07 10^6/uL (3.5-6.1); WHITE BLOOD COUNT 8.9 10^3/ul (4.5-11.0)
[2017-07-16 07:21] LABS: TOTAL IRON BINDING CAPACITY 158 ug/dL (265-497)
[2017-07-16 07:24] LABS: % IRON SATURATION 21 % (20-55); IRON 33 ug/dL (45-180)
[2017-07-16] MEDS: Insulin Reg-LOW-Coverage SC SCH ×4 (07:53→21:37)
--- NOTE | 2017-07-16 08:05 | HP ---
CHIEF COMPLAINT: Altered mental status. HISTORY OF PRESENT ILLNESS: Ms. Tamy Abbott is a 71-year-old female with past medical history of diabetes mellitus, hypertension, toe amputation, hyperthyroidism, who was brought to the emergency department from [facility] via EMS for poor responsiveness. The patient is currently being treated with IV antibiotics following the amputation of the two toes of the left foot. The patient does not recollect what happened today to her. The patient just keeping saying they cut my toes off. She denies any shortness of breath. No chest pain. The patient has poor appetite. Poor historian. No nausea, vomiting or diarrhea. No hematuria. No hematochezia. No swelling of the legs. No chest pain. No palpitation. No headaches. No dizziness. PAST MEDICAL HISTORY: Hypertension, hypercholesterolemia, dementia, diabetes mellitus type 2, fall, urinary incontinence, labial abscess removed, incision and drainage of left leg, PICC line insertion, status post amputation of left foot third and fourth toes. FAMILY HISTORY: Father and mother, noncontributory. HABITS: Never smoked. No drug or ethanol. ALLERGIES: THE PATIENT IS NOT ALLERGIC WITH ANY MEDICATIONS. HOME MEDICATIONS: Ecotrin, Actos, aspirin, Coreg, Plavix, Merrem, Actos, vancomycin, oxycodone. REVIEW OF SYSTEMS: The patient was seen and examined at the bedside, looking comfortable, still has altered mental status. No shortness of breath. No nausea, vomiting or diarrhea. No hematuria. No hematochezia. No fever. No chills. PHYSICAL EXAMINATION: VITAL SIGNS: Temperature 98.4, pulse 87, respiratory rate 18, blood pressure 189/88, pulse oximetry 97. HEENT: Head normocephalic, atraumatic. Eyes PERRLA. Extraocular muscles intact. Conjunctivae clear. Nose patent. Mucous membrane moist. NECK: Supple. No carotid bruit. No JVD or thyromegaly. CHEST: Bilaterally symmetrical. HEART: S1 and S2 positive. LUNGS: Clear to auscultation. ABDOMEN: Soft. Bowel sounds positive. No organomegaly. EXTREMITIES: No edema. No cyanosis. NEUROLOGIC: Patient is awake and alert, but is confused. LABORATORY DATA: White blood cell 10.9, hemoglobin 8, hematocrit 25.6, platelets 358. Sodium 144, potassium 3.9. BUN 26, creatinine 2.1. Glucose 58. ASSESSMENT AND PLAN: Ms. Tamy Abbott is a 71-year-old lady with anemia, renal insufficiency, came with near syncope, altered mental, urinary tract infection. CAT scan of the head was done, reviewed by me. Seen by Dr. Pack, Infectious Disease. The patient was getting rehab in [facility] and was getting vancomycin there. Amputation of two toes of the left foot, Escherichia coli and enterococcus, Escherichia coli is extended-spectrum beta-lactamase positive, history of labial abscess incision and drainage and left ankle surgery, came with altered mental status near syncopal attack. We will continue antibiotics. We will start meropenem and check vancomycin levels first given worsening creatinine level, wound care, may need to consider Zyvox over vancomycin . Gastrointestinal and deep vein thrombosis prophylaxis. We will continue present treatment. We will follow up. Deisy Gilman MD MTDD
[2017-07-16] MEDS: Meropenem 500 MG in Sodium Chloride 0.9% 50 ML IVPB SCH ×2 (10:17→21:38)
[2017-07-16 13:50] LABS: FOLATE 12.2 ng/mL
--- NOTE | 2017-07-16 15:26 | CP.PCM.PN ---
Subjective - Date & Time of Evaluation Date of Evaluation: 07/16/17 Time of Evaluation: 13:00 - Subjective Subjective: Infectious Disease Follow Up: July 16, 2017 71 yo AA female sent from [facility] for poor responsiveness. 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 History of E. coli and enterococcus. The E. coli is ESBL+. The patient can give little history of her own. She is currently awake and alert now. The patient was on IV Vancomycin at [place]. Unclear if she was still on Meropenem there. Renal insufficiency. The patient had normal creatinine in June 2017. Still elevated creatinine. Unclear if this is secondary to several factors such as dehydration, poor appetite, and use of Vancomycin. Vancomycin remains high at 35.4 but she did get a dose in hospital yesterday morning. At best the patient is AAO x 1. The patient has very uneven behavior... I'm not sure if this is her normal vs. AMS. Objective - Vital Signs/Intake and Output Vital Signs (last 24 hours): Temp Pulse Resp BP Pulse Ox 98.7 F 82 18 127/47 L 98 07/16/17 12:00 07/16/17 14:04 07/16/17 12:00 07/16/17 14:04 07/16/17 05:33 Intake and Output: 07/16/17 07/16/17 06:59 18:59 Intake Total 960 880 Output Total 300 200 Balance 660 680 - Medications Medications: Current Medications Acetaminophen (Tylenol 325mg Tab) 650 mg PO Q4H PRN PRN Reason: pain fever Aspirin (Aspirin Chewable) 81 mg PO DAILY [facility] Last Admin: 07/16/17 10:18 Dose: 81 mg Carvedilol (Coreg) 3.125 mg PO Q12 [facility] Last Admin: 07/16/17 10:18 Dose: 3.125 mg Clopidogrel Bisulfate (Plavix) 75 mg PO DAILY [facility] Last Admin: 07/16/17 10:18 Dose: 75 mg Famotidine (Pepcid) 40 mg PO HS [facility] Last Admin: 07/15/17 21:56 Dose: 40 mg Ferrous Sulfate (Feosol) 324 mg PO BID [facility] Last Admin: 07/16/17 10:18 Dose: 324 mg Dextrose/Sodium Chloride (Dextrose 5%/0.9% Ns 1000 Ml) 1,000 mls @ 80 mls/hr IV .[id number] [facility] Last Admin: 07/16/17 12:21 Dose: 80 mls/hr Meropenem 500 mg/ Sodium (Chloride) 50 mls @ 100 mls/hr IVPB Q12 [facility] PRN Reason: Protocol Last Admin: 07/16/17 10:17 Dose: 100 mls/hr Insulin Human Regular (Humulin R Low) 0 units SC ACHS [facility] PRN Reason: Protocol Last Admin: 07/16/17 12:03 Dose: Not Given Insulin Degludec [ Tresiba Flextouch U- 200] 30 unit SC HS [facility] Last Admin: 07/15/17 21:49 Dose: Not Given Pioglitazone HCl (Actos) 45 mg PO DAILY [facility] Propranolol HCl (Inderal) 10 mg PO Q8 [facility] Last Admin: 07/16/17 14:04 Dose: 10 mg Sitagliptin Phosphate (Januvia) 25 mg PO DAILY [facility] Last Admin: 07/16/17 10:18 Dose: 25 mg - Labs Labs: 07/16/17 06:30 07/16/17 10:00 PT 13.9 SECONDS (9.4-12.5) H 07/14/17 22:54 INR 1.21 (0.93-1.08) H 07/14/17 22:54 APTT 39.8 Seconds (25.1-36.5) H 07/14/17 22:54 - Constitutional Appears: Non-toxic, No Acute Distress, Chronically Ill - Head Exam Head Exam: ATRAUMATIC, NORMOCEPHALIC - Eye Exam Eye Exam: EOMI, PERRL Pupil Exam: NORMAL ACCOMODATION, PERRL - ENT Exam ENT Exam: Mucous Membranes Moist, Normal External Ear Exam, TM's Normal Bilaterally - Neck Exam Neck Exam: Full ROM, Normal Inspection - Respiratory Exam Respiratory Exam: Clear to Ausculation Bilateral, NORMAL BREATHING PATTERN. absent: Rales, Rhonchi, Wheezes - Cardiovascular Exam Cardiovascular Exam: REGULAR RHYTHM, RRR, +S1, +S2 - GI/Abdominal Exam GI & Abdominal Exam: Soft, Normal Bowel Sounds. absent: Distended, Tenderness - Extremities Exam Additional comments: Left foot with 3rd and 4th toe amputations - Neurological Exam Neurological Exam: Alert, Awake, CN II-XII Intact, Oriented x3 - Psychiatric Exam Psychiatric exam: Normal Affect, Normal Mood - Skin Skin Exam: Dry, Normal Color Assessment and Plan - Assessment and Plan (Free Text) Assessment: 71 yo AA female with altered renal function and was poorly responsive at [facility]. The patient was on Vancomycin for antibiotic treatment. Will restart Meropenem and check Vancomycin levels fist given worsening creatinine levels. Local wound care. Still with decreased renal function despite normal values in the early part of June 2017. Likely multiple factors contributing to this including dehydration , poor oral appetite, and use of Vancomycin antibiotics. Unclear if the renal function will recover at this point... it is too early to tell. May need to consider Zyvox over Vancomycin for treatment given renal function. Check Vancomycin level tomorrow again. Level currently is 35.4 taken about 24 hours after the last administration of IV Vancomycin. Possible consideration of Zyvox use after Vancomycin levels normalize and if culture still suggest Enterococcus infection. Podiatry has recultured with foot. Will continue with renally dosed meropenem for now. Thank you for allowing me to participate in the care of the patient, we will follow with you.
--- NOTE | 2017-07-16 18:19 | CON ---
DATE: HISTORY OF PRESENT ILLNESS: This is a 71-year-old diabetic female seen at bedside for consultation, evaluation and management of a diabetic left foot ulceration secondary to fifth ray resection done in May of this year. The patient was brought from [facility] due to poor responsiveness. The patient remains confused and does not know exactly where she is or what year it is when asked. PAST MEDICAL HISTORY: Includes longstanding type 2 diabetes with peripheral arterial disease and peripheral neuropathy, hypercholesterolemia, hypertension, dementia, urinary incontinence. PAST SURGICAL HISTORY: Includes recent left fifth ray resection, abscess removal. FAMILY HISTORY: Unremarkable. SOCIAL HISTORY The patient denies any illicit drug use. Never used tobacco products and never smoked and never drank alcohol. ALLERGIES: THE PATIENT HAS NO KNOWN DRUG ALLERGIES. CURRENT MEDICATIONS: Include Actos, Ecotrin, oxycodone, vancomycin, meropenem, Plavix, Coreg and aspirin. PHYSICAL EXAMINATION: VITAL SIGNS: Revealed temperature of 98.3, pulse rate of 81, blood pressure of 156/70, respiratory rate of 20. MUSCULOSKELETAL: Nonpalpable pedal pulses noted bilaterally. Absent pedal hair growth noted bilaterally. The patient is unable to detect 5.07 g monofilament wire testing bilaterally. There is a full-thickness ulceration on the lateral aspect of the left foot that encompasses the entire fifth metatarsal region. The base of the ulceration is primarily granular with some fibrotic tissue present. There is noted to be a moderate amount of clear serous drainage. There is no purulence. There is no probing to tendon or bone. There is no sinus tracking and no abscess formation noted. DATA: Laboratory findings reveal a white count of 8.9, hemoglobin of 7.8, hematocrit of 24.9, platelet count of 330. There is no culture and sensitivity taken of the wound as of yet. ASSESSMENT: Full-thickness left diabetic foot ulceration secondary to left fifth ray resection. PLAN: The patient was examined. Wound was cultured and sent for sensitivities. The wound was cleansed with normal sterile saline. We will apply sterile Adaptic Maxorb and a dry sterile dressing daily. We will order formal type podus boots to offload both heels. The patient will be seen and followed daily. Harrison Trujillo DPM
[2017-07-16] MEDS: Insulin Degludec [Tresiba Flextouch U-200] SC SCH (21:37)
[2017-07-17] MEDS: Dextrose 5%/0.9% NS 1,000 ML IV SCH ×3 (00:46→14:23)
[2017-07-17 06:29] LABS: HEMOGLOBIN 7.3 g/dL (12.0-16.0); MEAN CELL VOLUME 81.1 fl (80.0-105.0); MEAN CORPUSCULAR HEMOGLOBIN 25.1 pg (25.0-35.0); MEAN CORPUSCULAR HGB CONC 30.9 g/dl (31.0-37.0); MEAN PLATELET VOLUME 9.6 fl (7.0-11.0); RBC 2.91 10^6/uL (3.5-6.1); RED CELL DISTRIBUTION WIDTH 15.9 % (11.5-14.5); WHITE BLOOD COUNT 8.1 10^3/ul (4.5-11.0)
[2017-07-17] MEDS: Insulin Reg-LOW-Coverage SC SCH ×4 (07:48→22:03)
[2017-07-17] MEDS: Meropenem 500 MG in Sodium Chloride 0.9% 50 ML IVPB SCH ×2 (10:50→21:08)
--- NOTE | 2017-07-17 11:43 | CP.PCM.PN ---
<Myron Melendez - Last Filed: 07/17/17 11:37> Subjective - Date & Time of Evaluation Date of Evaluation: 07/17/17 Time of Evaluation: 11:37 - Subjective Subjective: Podiatry PRogress Note- Dr. Anderson 71 y.o female seen and evaluated at bedside for lateral left foot full thickness ulceration. Patient is seen resting comfortably in bed, awake, and in NAD. Reports she is feeling good. Patient denies overnight events. Denies pain to the LE. Denies nausea, fever, shortness of breath, chest pains or chills. No new pedal complaints. Objective - Vital Signs/Intake and Output Vital Signs (last 24 hours): Temp Pulse Resp BP Pulse Ox 98.0 F 80 19 145/69 97 07/17/17 06:00 07/17/17 10:50 07/17/17 06:00 07/17/17 10:50 07/17/17 06:00 Intake and Output: 07/17/17 07/17/17 06:59 18:59 Intake Total 1040 Output Total 500 Balance 540 - Medications Medications: Current Medications Acetaminophen (Tylenol 325mg Tab) 650 mg PO Q4H PRN PRN Reason: pain fever Aspirin (Aspirin Chewable) 81 mg PO DAILY [facility] Last Admin: 07/17/17 10:49 Dose: 81 mg Carvedilol (Coreg) 3.125 mg PO Q12 [facility] Last Admin: 07/17/17 10:50 Dose: 3.125 mg Clopidogrel Bisulfate (Plavix) 75 mg PO DAILY [facility] Last Admin: 07/17/17 10:49 Dose: 75 mg Famotidine (Pepcid) 40 mg PO HS [facility] Last Admin: 07/16/17 21:37 Dose: 40 mg Ferrous Sulfate (Feosol) 324 mg PO BID [facility] Last Admin: 07/17/17 10:49 Dose: 324 mg Dextrose/Sodium Chloride (Dextrose 5%/0.9% Ns 1000 Ml) 1,000 mls @ 80 mls/hr IV .[id number] [facility] Last Admin: 07/17/17 06:00 Dose: 80 mls/hr Meropenem 500 mg/ Sodium (Chloride) 50 mls @ 100 mls/hr IVPB Q12 [facility] PRN Reason: Protocol Last Admin: 07/17/17 10:50 Dose: 100 mls/hr Insulin Human Regular (Humulin R Low) 0 units SC ACHS [facility] PRN Reason: Protocol Last Admin: 07/17/17 07:48 Dose: Not Given Insulin Degludec [ Tresiba Flextouch U- 200] 30 unit SC HS [facility] Last Admin: 07/16/17 21:37 Dose: Not Given Pioglitazone HCl (Actos) 45 mg PO DAILY [facility] Propranolol HCl (Inderal) 10 mg PO Q8 [facility] Last Admin: 07/17/17 06:02 Dose: 10 mg Sitagliptin Phosphate (Januvia) 25 mg PO DAILY [facility] Last Admin: 07/17/17 10:50 Dose: 25 mg - Labs Labs: 07/17/17 06:15 07/16/17 10:00 PT 13.9 SECONDS (9.4-12.5) H 07/14/17 22:54 INR 1.21 (0.93-1.08) H 07/14/17 22:54 APTT 39.8 Seconds (25.1-36.5) H 07/14/17 22:54 - Constitutional Appears: Well, Non-toxic, No Acute Distress - Extremities Exam Extremities Exam: absent: Calf Tenderness Additional comments: Left lower extremity focused exam: Vasc: DP/PT pulses palpable 1/4. Temperature gradient warm to cool. CFT < 3 sec x 3 digits. Mild pedal edema noted to lateral foot Derm: Open ulceration measuring 7 cm x 3 cm x 0.6cm to lateral forefoot with wound base mainly granular with mixture fibrotic tissue proximally. Tereza wound exhibits mild maceration. No active drainage, serous drainage noted to the dressing, no malodor, no tunneling or undermining present Neuro: Protective sensation absent, gross sensation diminished Ortho: No tenderness to palpation of lateral forefoot ulceration - Neurological Exam Neurological Exam: Awake - Psychiatric Exam Psychiatric exam: Normal Affect, Normal Mood Assessment and Plan - Assessment and Plan (Free Text) Assessment: 71 y.o female with lateral left foot full thickness ulceration secondary to left 5th ray resection Plan: Patient examined and evaluated Discussed plan in detail with attending Dr. Cole Labs, vitals reviewed- absent leukocytosis, afebrile Patient ulceration cleansed with saline solution, applied maxosorb, dsd, and ABD , and kerlix Wound culture pending- preliminary gram negative rods C/w abx per ID Ordered Mulitpodus boots Podiatry will continue to follow while in house <Eboni Anderson - Last Filed: 07/31/17 16:05> Objective - Vital Signs/Intake and Output Vital Signs (last 24 hours): Temp Pulse Resp BP Pulse Ox 98.1 F 77 18 148/71 95 07/31/17 06:00 07/31/17 14:35 07/31/17 06:00 07/31/17 14:35 07/31/17 06:00 Intake and Output: 07/31/17 07/31/17 06:59 18:59 Intake Total 120 480 Balance 120 480 - Medications Medications: Current Medications Acetaminophen (Tylenol 325mg Tab) 650 mg PO Q4H PRN PRN Reason: pain fever Last Admin: 07/27/17 02:58 Dose: 650 mg Albuterol/Ipratropium (Duoneb 3 Mg/0.5 Mg (3 Ml) Ud) 3 ml IH [id number] [facility] Last Admin: 07/31/17 15:22 Dose: 3 ml Amlodipine Besylate (Norvasc) 10 mg PO DAILY [facility] Aspirin (Aspirin Chewable) 81 mg PO DAILY [facility] Last Admin: 07/31/17 10:02 Dose: 81 mg Atorvastatin Calcium (Lipitor) 40 mg PO DIN [facility] Last Admin: 07/30/17 17:18 Dose: 40 mg Carvedilol (Coreg) 25 mg PO Q12 [facility] Last Admin: 07/31/17 12:38 Dose: 25 mg Clopidogrel Bisulfate (Plavix) 75 mg PO DAILY [facility] Last Admin: 07/31/17 10:02 Dose: 75 mg Clotrimazole (Lotrimin 1%) 1 gm TOP DAILY [facility] Last Admin: 07/31/17 10:08 Dose: 1 applic Collagenase (Santyl) 1 gm TOP DAILY [facility] Last Admin: 07/31/17 10:07 Dose: 1 applic Dextrose (Dextrose 50% Inj) 50 ml IVP PRN PRN PRN Reason: PRN For blood glucose below 80 Famotidine (Pepcid) 20 mg PO HS [facility] Last Admin: 07/30/17 21:23 Dose: 20 mg Ferrous Sulfate (Feosol) 324 mg PO BID [facility] Last Admin: 07/31/17 10:02 Dose: 324 mg Furosemide (Lasix) 20 mg PO DAILY [facility] Last Admin: 07/31/17 10:01 Dose: 20 mg Hydralazine HCl (Apresoline) 10 mg IVP Q6 PRN PRN Reason: SBP >160 DBP>90 Last Admin: 07/30/17 14:24 Dose: 10 mg Hydralazine HCl (Apresoline) 75 mg PO QID [facility] Last Admin: 07/31/17 14:35 Dose: 75 mg Micafungin Sodium 100 mg/ (Sodium Chloride) 100 mls @ 100 mls/hr IV DAILY [facility] PRN Reason: Protocol Last Admin: 07/31/17 10:02 Dose: 100 mls/hr Insulin Detemir (Levemir) 10 unit SC HS [facility] Last Admin: 07/30/17 23:30 Dose: 10 unit Insulin Human Regular (Humulin R Low) 0 units SC ACHS [facility] PRN Reason: Protocol Last Admin: 07/31/17 12:37 Dose: 1 units Mupirocin (Bactroban Ointment) 1 gm TOP BID [facility] Last Admin: 07/31/17 10:08 Dose: 1 appl Nystatin (Nystop Topical Powder) 1 gm TOP DAILY [facility] Last Admin: 07/31/17 10:07 Dose: 1 applic - Labs Labs: 07/31/17 12:10 07/31/17 12:10 PT 15.1 SECONDS (9.4-12.5) H 07/20/17 09:55 INR 1.31 (0.93-1.08) H 07/20/17 09:55 APTT 37.7 Seconds (25.1-36.5) H 07/20/17 09:55 Attending/Attestation - Attestation I have personally seen and examined this patient.: Yes I have fully participated in the care of the patient.: Yes I have reviewed all pertinent clinical information, including history, physical exam and plan: Yes
--- NOTE | 2017-07-17 17:52 | CP.PCM.PN ---
Subjective - Date & Time of Evaluation Date of Evaluation: 07/17/17 Time of Evaluation: 15:00 - Subjective Subjective: Infectious Disease Follow Up: July 17, 2017 71 yo AA female sent from [facility] for poor responsiveness. 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 History of E. coli and enterococcus. The E. coli is ESBL+. The patient can give little history of her own. She is currently awake and alert now. The patient was on IV Vancomycin at [place]. Unclear if she was still on Meropenem there. Renal insufficiency. The patient had normal creatinine in June 2017. Still elevated creatinine. Unclear if this is secondary to several factors such as dehydration, poor appetite, and use of Vancomycin. Vancomycin remains high at 35.4 but she did get a dose in hospital yesterday morning. At best the patient is AAO x 1. The patient has very uneven behavior... I'm not sure if this is her normal vs. AMS. Wound cultures showing gram negative rods. Objective - Vital Signs/Intake and Output Vital Signs (last 24 hours): Temp Pulse Resp BP Pulse Ox 98.5 F 86 20 145/69 97 07/17/17 12:00 07/17/17 14:21 07/17/17 12:00 07/17/17 14:21 07/17/17 06:00 Intake and Output: 07/17/17 07/17/17 06:59 18:59 Intake Total 1400 840 Output Total 950 300 Balance 450 540 - Medications Medications: Current Medications Acetaminophen (Tylenol 325mg Tab) 650 mg PO Q4H PRN PRN Reason: pain fever Aspirin (Aspirin Chewable) 81 mg PO DAILY [facility] Last Admin: 07/17/17 10:49 Dose: 81 mg Carvedilol (Coreg) 3.125 mg PO Q12 [facility] Last Admin: 07/17/17 10:50 Dose: 3.125 mg Clopidogrel Bisulfate (Plavix) 75 mg PO DAILY [facility] Last Admin: 07/17/17 10:49 Dose: 75 mg Famotidine (Pepcid) 40 mg PO HS [facility] Last Admin: 07/16/17 21:37 Dose: 40 mg Ferrous Sulfate (Feosol) 324 mg PO BID [facility] Last Admin: 07/17/17 10:49 Dose: 324 mg Dextrose/Sodium Chloride (Dextrose 5%/0.9% Ns 1000 Ml) 1,000 mls @ 80 mls/hr IV .[id number] [facility] Last Admin: 07/17/17 14:23 Dose: 80 mls/hr Meropenem 500 mg/ Sodium (Chloride) 50 mls @ 100 mls/hr IVPB Q12 [facility] PRN Reason: Protocol Last Admin: 07/17/17 10:50 Dose: 100 mls/hr Insulin Human Regular (Humulin R Low) 0 units SC ACHS [facility] PRN Reason: Protocol Last Admin: 07/17/17 12:36 Dose: Not Given Insulin Degludec [ Tresiba Flextouch U- 200] 30 unit SC HS [facility] Last Admin: 07/16/17 21:37 Dose: Not Given Pioglitazone HCl (Actos) 45 mg PO DAILY [facility] Propranolol HCl (Inderal) 10 mg PO Q8 [facility] Last Admin: 07/17/17 14:21 Dose: 10 mg Sitagliptin Phosphate (Januvia) 25 mg PO DAILY [facility] Last Admin: 07/17/17 10:50 Dose: 25 mg - Labs Labs: 07/17/17 06:15 07/16/17 10:00 PT 13.9 SECONDS (9.4-12.5) H 07/14/17 22:54 INR 1.21 (0.93-1.08) H 07/14/17 22:54 APTT 39.8 Seconds (25.1-36.5) H 07/14/17 22:54 - Constitutional Appears: Non-toxic, No Acute Distress, Chronically Ill - Head Exam Head Exam: ATRAUMATIC, NORMOCEPHALIC - Eye Exam Eye Exam: EOMI, PERRL Pupil Exam: NORMAL ACCOMODATION, PERRL - ENT Exam ENT Exam: Mucous Membranes Moist, Normal External Ear Exam, TM's Normal Bilaterally - Neck Exam Neck Exam: Full ROM, Normal Inspection - Respiratory Exam Respiratory Exam: Clear to Ausculation Bilateral, NORMAL BREATHING PATTERN. absent: Rales, Rhonchi, Wheezes - Cardiovascular Exam Cardiovascular Exam: REGULAR RHYTHM, RRR, +S1, +S2 - GI/Abdominal Exam GI & Abdominal Exam: Soft, Normal Bowel Sounds. absent: Distended, Tenderness - Extremities Exam Additional comments: Left foot with 3rd and 4th toe amputations. Lateral left foot ulceration full thickness. - Neurological Exam Neurological Exam: Alert, Awake, CN II-XII Intact, Oriented x3 - Psychiatric Exam Psychiatric exam: Normal Affect, Normal Mood - Skin Skin Exam: Dry Assessment and Plan - Assessment and Plan (Free Text) Assessment: 71 yo AA female with altered renal function and was poorly responsive at [facility]. The patient was on Vancomycin for antibiotic treatment. Will restart Meropenem and check Vancomycin levels fist given worsening creatinine levels. Local wound care. Still with decreased renal function despite normal values in the early part of June 2017. Likely multiple factors contributing to this including dehydration , poor oral appetite, and use of Vancomycin antibiotics. Unclear if the renal function will recover at this point... it is too early to tell. Recheck creatinine tomorrow. May need to consider Zyvox over Vancomycin for treatment given renal function. Check Vancomycin level tomorrow again. Level currently is 35.4 taken about 24 hours after the last administration of IV Vancomycin. Possible consideration of Zyvox use after Vancomycin levels normalize and if culture still suggest Enterococcus infection. Podiatry has recultured with foot. Will continue with renally dosed meropenem for now. Gram negative rods in wound cultures of the foot. Thank you for allowing me to participate in the care of the patient, we will follow with you.
--- NOTE | 2017-07-17 19:08 | PN ---
DATE: 07/17/2017 SUBJECTIVE: Patient is a 71-year-old female. Patient is seen and examined on the bedside. Looking comfortable. No overnight event happened. Awake, alert, but sometimes getting periods of confusion, swelling of the left upper hand. Denies nausea, vomiting, headache. No chest pain, no palpitation. PHYSICAL EXAMINATION: VITAL SIGNS: Temperature 98, pulse 80, respiratory rate 19, blood pressure 145/69, pulse 97. HEENT: Head: Normocephalic, atraumatic. Eyes: PERRLA. Extraocular muscles intact. Conjunctivae clear. Nose: Patent. NECK: Supple. No carotid bruit. No JVD or thyromegaly. CHEST: Bilaterally symmetrical. HEART: S1 and S2 positive. LUNGS: Clear to auscultation. ABDOMEN: Soft. Bowel sounds positive. No organomegaly. EXTREMITIES: No edema. No cyanosis. NEUROLOGIC: Patient is awake and alert. Moving all 4 extremities. No focal deficit. MEDICATIONS: Tylenol, aspirin, Coreg, Plavix, Pepcid, Feosol, meropenem, insulin, Actos, Inderal, Januvia. LABORATORY DATA: White blood cell is 8.1, hemoglobin 7.3, hematocrit 23.6, platelet 308. Sodium 144, potassium 4.1, BUN 23, creatinine 2.4, glucose 99. ASSESSMENT AND PLAN: Ms. Tamy Abbott is a 71-year-old lady with anemia, renal insufficiency, has left foot full thickness ulceration secondary to left fifth ray resection. Patient was seen by Dr. Anderson. Patient's ulceration is cleaned with saline solution, applied dressing. Ordered Muti Podus boots. Podiatry and ID is on the case. We will call Nephrology consult also because of renal insufficiency. Patient is a very poor historian, has history of Escherichia coli. and Enterococcus. Escherichia coli. is extended-spectrum beta-lactamases positive. Patient is on vancomycin for antibiotic treatment and Dr. Pack from Infectious Disease started meropenem and we will check vancomycin levels. Neurologist is on the case. Patient is seen by Dr. 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 Continue present treatment. We will call consult with Dr. Reza Cosby and we will follow up. Deisy Gilman MD
[2017-07-17] MEDS: Insulin Degludec [Tresiba Flextouch U-200] SC SCH (21:10)
--- NOTE | 2017-07-18 01:15 | PN ---
DATE: 07/16/2017 SUBJECTIVE: The patient is a 71-year-old female. The patient was seen and examined on the bedside on 07/16/2017 and looking comfortable. No nausea, vomiting, diarrhea. No hematuria or hematochezia. No headache. No dizziness. No chest pain. No palpitations. PHYSICAL EXAMINATION: VITAL SIGNS: Temperature 98.7, pulse 82, respiratory rate 18, blood pressure 127/47, pulse oximetry 98. HEENT: Head normocephalic, atraumatic. Eyes PERRLA. Extraocular muscles intact. Conjunctivae clear. Nose patent. Mucous membrane moist. NECK: Supple. No carotid bruit. No JVD. No thyromegaly. CHEST: Bilaterally symmetrical. HEART: S1 and S2 positive. LUNGS: Clear to auscultation. ABDOMEN: Soft. Bowel sounds positive. No organomegaly. EXTREMITIES: No edema. No cyanosis. NEUROLOGICAL: The patient is awake and alert, but sometime is getting confused. LABORATORY DATA: White blood cells 8.9, hemoglobin 7.8, hematocrit 24.9, platelets 330. Sodium 144, potassium 4.1, BUN 23, creatinine 2.4, glucose 99. MEDICATIONS: Tylenol, aspirin, Coreg, Plavix, Pepcid, iron, dextrose, insulin, Actos, Inderal, Januvia. ASSESSMENT AND PLAN: Ms. Tamy Abbott, 71-year-old lady with anemia with renal insufficiency, altered mental status. Came [facility] from [facility]. The patient was on vancomycin for antibiotic treatment and Dr. Pack restarted meropenem. Local wound care. The patient with dehydration, gave IV fluid. May be Dr. Pack will consider about Zyvox. Podiatry is on the case. They will re-culture the foot. 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 Infectious Disease and Podiatry is on the case. Gastrointestinal and deep venous thrombosis prophylaxis. Repeat labs. We will follow up. Deisy Gilman MD
[2017-07-18] MEDS: Dextrose 5%/0.9% NS 1,000 ML IV SCH ×2 (01:37→08:00)
[2017-07-18 06:29] LABS: HEMOGLOBIN 7.1 g/dL (12.0-16.0); MEAN CELL VOLUME 81.1 fl (80.0-105.0); MEAN CORPUSCULAR HEMOGLOBIN 25.3 pg (25.0-35.0); MEAN CORPUSCULAR HGB CONC 31.1 g/dl (31.0-37.0); MEAN PLATELET VOLUME 9.5 fl (7.0-11.0); RBC 2.81 10^6/uL (3.5-6.1); WHITE BLOOD COUNT 8.1 10^3/ul (4.5-11.0)
[2017-07-18] MEDS: Insulin Reg-LOW-Coverage SC SCH ×4 (08:06→22:31)
[2017-07-18] MEDS: Meropenem 500 MG in Sodium Chloride 0.9% 50 ML IVPB SCH ×2 (09:40→21:57)
[2017-07-18] MEDS ORDERED: Dextrose 5%/0.9% NS 1,000 ML IV SCH ×2 (11:23→11:24)
[2017-07-18] MEDS: Dextrose 5%/0.45% NS 1,000 ML IV SCH (12:06)
--- NOTE | 2017-07-18 13:26 | PN ---
DATE: 07/18/2017 NEUROLOGY FOLLOWUP CHIEF COMPLAINT: Followup for altered mental status. HISTORY OF PRESENT ILLNESS: This is a 71-year-old -[place] woman with past medical history of type 2 diabetes mellitus, hypertension, hypercholesterolemia, dementia, urinary incontinence, peripherally inserted catheters, status post amputations of the left third and fourth toes, who came in from [facility], who was found to be dehydrated as well as elevated vancomycin levels as well as poor appetite and metabolic derangements including urinary tract infection. She is mildly lethargic, but follows very simple commands. Blood pressure is systolically elevated today. No acute events overnight. PAST MEDICAL HISTORY: As above. SOCIAL HISTORY: No illicit drug use, smoking or EtOH abuse. FAMILY HISTORY: Noncontributory. ALLERGIES: NO KNOWN DRUG ALLERGIES. REVIEW OF SYSTEMS: Fourteen-point review of systems negative except as per the HPI. FAMILY HISTORY: Noncontributory. PHYSICAL EXAMINATION: VITAL SIGNS: Temperature 97.6, pulse rate of 55, blood pressure 172/66, respiratory rate of 18, oxygen saturation 98% by room air. GENERAL: The patient is sitting up in bed, in no acute distress. HEENT: Atraumatic, normocephalic. PERRLA. Extraocular muscles intact. NECK: Supple. No JVD. No adenopathy noted. LUNGS: Clear to auscultation. No adventitious sounds. HEART: S1 and S2. Normal rate and rhythm. No murmurs, rubs or gallops. ABDOMEN: Soft, nontender and nondistended. Bowel sounds are present. EXTREMITIES: No clubbing. No cyanosis. Peripheral pulses are 2+ felt bilaterally. NEUROLOGIC: The patient is alert and oriented to person and place, not much to month nor the year. Recall after 5 minutes is 0/3. Poor attention span. Slow thought process. Cranial nerves II through XII are intact. Motor exam: Moves all extremities equally. No pronator drift seen. She has amputated left third and fourth toes. Increased tone throughout. Coordination: [id number] is intact. No dysmetria noted. Sensory exam: Decreased light touch and pinprick up to the calves bilaterally. Decreased vibration at the toes. DTRs 2+ throughout and 1 at the ankles and knees. Gait is deferred for now. LABORATORY DATA: Sodium 146, potassium 3.7, chloride 113, carbon dioxide 24, BUN of 20, creatinine of 2.2, random glucose of 155. ASSESSMENT AND PLAN: This is a 71-year-old -[place] woman with past medical history of hypertension, diabetes, hypercholesterolemia, urinary incontinence, history of amputation of the left third and fourth toes, who comes in from [facility] for transient altered mental status. Found to have elevated vancomycin levels as well as dehydration and renal insufficiency, some possibly underlying urinary tract infection at this time. The transient confusional state is most likely secondary to toxic metabolic encephalopathy causing transient confusion as well as she is also anemic. Hemoglobin is 7.2 today, which is low. At this time, I recommend, 1. Monitor electrolytes and correct accordingly. 2. Delirium precautions. 3. Correct the underlying hemoglobin, which is 7.2 today and continue to monitor. 4. Follow up with Infectious Disease's recommendations . Once again, thank you for this followup. Harry Burks MD
--- NOTE | 2017-07-18 13:58 | RAD ---
PROCEDURE: Left Foot Radiographs. HISTORY: left foot ulcer COMPARISON: 06/29/2017 FINDINGS: BONES: There is no evidence of bony destruction to suggest acute osteomyelitis. Previous amputation of the 4th toe and bony erosions in the head of the 3rd 4th and 5th metacarpals. JOINTS: Normal. SOFT TISSUES: Normal. OTHER FINDINGS: None. IMPRESSION: No evidence of osteomyelitis
--- NOTE | 2017-07-18 14:07 | CON ---
DATE: NEPHROLOGY CONSULTATION HISTORY OF PRESENT ILLNESS: A 71-year-old female with past medical history of hypertension, diabetes, hypothyroidism, status post left foot fifth ray resection done in May of this year brought in due to altered mental status at nursing facility; found to have infected left foot ulcer; Nephrology being consulted for acute renal failure. History from the patient is limited; the patient apparently with altered mental status in the setting of what is being thought to be acute left foot infection; also with possible UTI; the patient has been more alert since being admitted; per nursing staff is tolerating diet with feeding assistance; the patient otherwise denies any shortness of breath, chest pain; the patient does admit to upper extremity swelling that she thinks has been going on for the past week; the patient denies any dizziness; had been walking with a walker; denies any dysuria prior to presentation. PAST MEDICAL HISTORY: As above. FAMILY HISTORY: . SOCIAL HISTORY: Denies any smoking. REVIEW OF SYSTEMS: GENERAL: No fevers or chills currently. HEENT: Left eye blurriness due to cataract. Denies any difficulty swallowing. RESPIRATORY: Denies any difficulty breathing. CARDIOVASCULAR: No chest pain or palpitations. GI: No nausea, vomiting or diarrhea. : As per HPI. Urinary incontinence in medical history. EXTREMITIES: Noted to have bilateral upper and lower extremity edema. SKIN: Denies any itching or rashes. PSYCHIATRIC: Denies any difficulty sleeping. NEUROLOGIC: Has some weakness in legs. MUSCULOSKELETAL: Has contractures of bilateral fingers partially. PHYSICAL EXAMINATION: VITAL SIGNS: This morning, blood pressure 173/66, heart rate 55, respirations 18, temperature 97.6. GENERAL: No distress. Conversing coherently in full sentences. HEENT: Dry lips. No cervical lymphadenopathy. Large neck circumference. RESPIRATORY: Lungs clear to auscultation bilaterally. No rales. No rhonchi. No wheezes. CARDIOVASCULAR: Heart sounds S1 and S2 normal. No murmurs, no gallops, no rubs. GI: Abdomen soft, nontender, nondistended. : No bladder distention. Padilla in place draining somewhat cloudy urine. EXTREMITIES: Bilateral leg edema extending to upper thighs. Bilateral upper extremity edema. SKIN: Warm. No cyanosis. MUSCULOSKELETAL: Contractures of bilateral fingers. NEUROLOGIC: No asterixis. No tremor of outstretched hands. PSYCHIATRIC: Normal mood, normal affect, not agitated. LABORATORY DATA: CBC: WBC 8.1, hemoglobin 7.1, hematocrit 22.8, platelets 296, decreased from 358 on presentation. Chemistry panel: Sodium 146, potassium 3.7, chloride 113, bicarb 24, BUN 20, creatinine 2.2, glucose 155, calcium 8. Iron studies; iron saturation 21%, TIBC 158, iron 33, awaiting ferritin, albumin from 3 days ago 2.7 decreased from 3.5 last month. UA, urine protein 100 mg/dL, large blood, 15-20 RBCs per high-powered field, moderate leukocyte esterase with 10-15 WBCs per high-powered field, few bacteria. Vanco random level 35.4. Direct urine micro: Many coarse granular casts (~10/10x field); numerous RBC's ( isomorphic) and WBC's; ASSESSMENT AND PLAN: 1. Acute kidney injury on chronic kidney disease. Serum creatinine had been slightly elevated during earlier part of this year, however, towards end of last month GFR already in low 30s; etiology of acute kidney injury at this point is likely ATN with suggestive urine sediment; may be explained by vanco toxicity; however, the patient currently with anasarca and hypoalbuminemia with 2+ protein on urinalysis and so there is some concern for nephrotic syndrome; Otherwise, renal function relatively stable during this admission; stable electrolytes; -will check random urine for protein and creatinine; -will change IV fluids to D5 half NS at 60 mL/hour to avoid further volume excess; will also help to correct mild hypernatremia; -continue to hold nephrotoxic agents including vancomycin. 2. Hypertension. Blood pressure currently uncontrolled, but in the setting of the patient being on isotonic saline; currently on Coreg 3.125 mg every 12 hours only; we will reassess with the patient IV fluids being changed; if blood pressure remains uncontrolled, can increase coreg dose; 3. Sepsis. The patient with infected foot ulcer currently on meropenem being dosed for creatinine clearance less than 30; 4. Anemia with evidence of anemia of chronic disease/renal insufficiency; checking serum ferritin level; Thank you for this referral. We will be following up closely. Reza Cosby MD [facility] # [id number] CHE[place]
--- NOTE | 2017-07-18 16:09 | CP.PCM.PN ---
<Sumaya Lieberman - Last Filed: 07/18/17 16:06> Subjective - Date & Time of Evaluation Date of Evaluation: 07/18/17 Time of Evaluation: 16:06 - Subjective Subjective: Podiatry PRogress Note- Dr. Anderson 71 y/o female seen and evaluated at bedside for lateral left foot full thickness ulceration. Patient is seen resting comfortably in bed, in NAD. Pt is unable to offer any new NPI today and appears disoriented, stating she is waiting for the ambulance to bring her to the hospital. Pt seems unaware of her surroundings. Patient denies overnight events. Denies pain to the LE. Denies F/C /N/V/CP/SOB. No new pedal complaints. Objective - Vital Signs/Intake and Output Vital Signs (last 24 hours): Temp Pulse Resp BP Pulse Ox 97.6 F 81 18 173/66 H 98 07/18/17 12:00 07/18/17 14:00 07/18/17 12:00 07/18/17 12:00 07/18/17 05:57 Intake and Output: 07/18/17 07/18/17 06:59 18:59 Intake Total 1160 Output Total 400 Balance 760 - Medications Medications: Current Medications Acetaminophen (Tylenol 325mg Tab) 650 mg PO Q4H PRN PRN Reason: pain fever Last Admin: 07/18/17 07:59 Dose: 650 mg Aspirin (Aspirin Chewable) 81 mg PO DAILY [facility] Last Admin: 07/18/17 09:39 Dose: 81 mg Carvedilol (Coreg) 3.125 mg PO Q12 [facility] Last Admin: 07/18/17 09:40 Dose: 3.125 mg Clopidogrel Bisulfate (Plavix) 75 mg PO DAILY [facility] Last Admin: 07/18/17 09:40 Dose: 75 mg Famotidine (Pepcid) 40 mg PO HS [facility] Last Admin: 07/17/17 21:09 Dose: 40 mg Ferrous Sulfate (Feosol) 324 mg PO BID [facility] Last Admin: 07/18/17 09:39 Dose: 324 mg Meropenem 500 mg/ Sodium (Chloride) 50 mls @ 100 mls/hr IVPB Q12 [facility] PRN Reason: Protocol Last Admin: 07/18/17 09:40 Dose: 100 mls/hr Dextrose/Sodium Chloride (Dextrose 5%/0.45% Ns 1000 Ml) 1,000 mls @ 60 mls/hr IV .[id number] [facility] Last Admin: 07/18/17 12:06 Dose: 60 mls/hr Insulin Human Regular (Humulin R Low) 0 units SC ACHS [facility] PRN Reason: Protocol Last Admin: 07/18/17 12:04 Dose: 1 units Insulin Degludec [ Tresiba Flextouch U- 200] 30 unit SC HS [facility] Last Admin: 07/17/17 21:10 Dose: Not Given Pioglitazone HCl (Actos) 45 mg PO DAILY [facility] Propranolol HCl (Inderal) 10 mg PO Q8 [facility] Last Admin: 07/18/17 14:46 Dose: Not Given Sitagliptin Phosphate (Januvia) 25 mg PO DAILY [facility] Last Admin: 07/18/17 09:40 Dose: 25 mg - Labs Labs: 07/18/17 06:10 07/18/17 06:10 PT 13.9 SECONDS (9.4-12.5) H 07/14/17 22:54 INR 1.21 (0.93-1.08) H 07/14/17 22:54 APTT 39.8 Seconds (25.1-36.5) H 07/14/17 22:54 - Constitutional Appears: Well, Non-toxic, No Acute Distress - Extremities Exam Additional comments: Left lower extremity focused exam: Vasc: DP/PT pulses palpable 1/4. Temperature gradient warm to cool. CFT < 3 sec x 3 digits. Mild pedal edema noted to lateral foot Derm: Open ulceration measuring 7 cm x 3 cm x 0.6cm to lateral forefoot with wound base mainly granular with small amount of fibrotic tissue proximally. Tereza wound exhibits mild maceration. No active drainage, serous drainage noted to the dressing, no malodor, no tunneling or undermining present Neuro: Protective sensation absent, gross sensation diminished Ortho: No tenderness to palpation of lateral forefoot ulceration - Neurological Exam Neurological Exam: Alert, Awake, Oriented x3 - Psychiatric Exam Psychiatric exam: Normal Affect, Normal Mood Assessment and Plan - Assessment and Plan (Free Text) Assessment: 71 y.o female with lateral left foot full thickness ulceration Plan: Patient seen and evaluated with attending Dr. Morrison Labs, vitals reviewed- absent leukocytosis, afebrile X-rays of L foot (-) for any acute osseous changes/acute OM MRI of L foot ordered Arterial duplex studies ordered B/L Patient ulceration cleansed with saline solution and dressed with Maxorb and Optifoam Wound culture + for Acinetobacter Baumanii Continue IV abx per ID - Meropenem Continue Multipodus boots at all times in bed Podiatry will continue to follow while in house <Eboni Anderson - Last Filed: 07/31/17 16:12> Objective - Vital Signs/Intake and Output Vital Signs (last 24 hours): Temp Pulse Resp BP Pulse Ox 98.1 F 77 18 148/71 95 07/31/17 06:00 07/31/17 14:35 07/31/17 06:00 07/31/17 14:35 07/31/17 06:00 Intake and Output: 07/31/17 07/31/17 06:59 18:59 Intake Total 120 480 Balance 120 480 - Medications Medications: Current Medications Acetaminophen (Tylenol 325mg Tab) 650 mg PO Q4H PRN PRN Reason: pain fever Last Admin: 07/27/17 02:58 Dose: 650 mg Albuterol/Ipratropium (Duoneb 3 Mg/0.5 Mg (3 Ml) Ud) 3 ml IH [id number] [facility] Last Admin: 07/31/17 15:22 Dose: 3 ml Amlodipine Besylate (Norvasc) 10 mg PO DAILY [facility] Aspirin (Aspirin Chewable) 81 mg PO DAILY [facility] Last Admin: 07/31/17 10:02 Dose: 81 mg Atorvastatin Calcium (Lipitor) 40 mg PO DIN [facility] Last Admin: 07/30/17 17:18 Dose: 40 mg Carvedilol (Coreg) 25 mg PO Q12 [facility] Last Admin: 07/31/17 12:38 Dose: 25 mg Clopidogrel Bisulfate (Plavix) 75 mg PO DAILY [facility] Last Admin: 07/31/17 10:02 Dose: 75 mg Clotrimazole (Lotrimin 1%) 1 gm TOP DAILY [facility] Last Admin: 07/31/17 10:08 Dose: 1 applic Collagenase (Santyl) 1 gm TOP DAILY [facility] Last Admin: 07/31/17 10:07 Dose: 1 applic Dextrose (Dextrose 50% Inj) 50 ml IVP PRN PRN PRN Reason: PRN For blood glucose below 80 Famotidine (Pepcid) 20 mg PO HS [facility] Last Admin: 07/30/17 21:23 Dose: 20 mg Ferrous Sulfate (Feosol) 324 mg PO BID [facility] Last Admin: 07/31/17 10:02 Dose: 324 mg Furosemide (Lasix) 20 mg PO DAILY [facility] Last Admin: 07/31/17 10:01 Dose: 20 mg Hydralazine HCl (Apresoline) 10 mg IVP Q6 PRN PRN Reason: SBP >160 DBP>90 Last Admin: 07/30/17 14:24 Dose: 10 mg Hydralazine HCl (Apresoline) 75 mg PO QID [facility] Last Admin: 07/31/17 14:35 Dose: 75 mg Micafungin Sodium 100 mg/ (Sodium Chloride) 100 mls @ 100 mls/hr IV DAILY [facility] PRN Reason: Protocol Last Admin: 07/31/17 10:02 Dose: 100 mls/hr Insulin Detemir (Levemir) 10 unit SC HS [facility] Last Admin: 07/30/17 23:30 Dose: 10 unit Insulin Human Regular (Humulin R Low) 0 units SC ACHS [facility] PRN Reason: Protocol Last Admin: 07/31/17 12:37 Dose: 1 units Mupirocin (Bactroban Ointment) 1 gm TOP BID [facility] Last Admin: 07/31/17 10:08 Dose: 1 appl Nystatin (Nystop Topical Powder) 1 gm TOP DAILY [facility] Last Admin: 07/31/17 10:07 Dose: 1 applic - Labs Labs: 07/31/17 12:10 07/31/17 12:10 PT 15.1 SECONDS (9.4-12.5) H 07/20/17 09:55 INR 1.31 (0.93-1.08) H 07/20/17 09:55 APTT 37.7 Seconds (25.1-36.5) H 07/20/17 09:55 Attending/Attestation - Attestation I have personally seen and examined this patient.: Yes I have fully participated in the care of the patient.: Yes I have reviewed all pertinent clinical information, including history, physical exam and plan: Yes
--- NOTE | 2017-07-18 19:03 | CP.PCM.PN ---
Subjective - Date & Time of Evaluation Date of Evaluation: 07/18/17 Time of Evaluation: 15:30 - Subjective Subjective: Infectious Disease Follow Up: July 18, 2017 71 yo AA female sent from [facility] for poor responsiveness. 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 History of E. coli and enterococcus. The E. coli is ESBL+. The patient can give little history of her own. She is currently awake and alert now. The patient was on IV Vancomycin at [facility]. Unclear if she was still on Meropenem there. Renal insufficiency. The patient had normal creatinine in June 2017. Still elevated creatinine. Unclear if this is secondary to several factors such as dehydration, poor appetite, and use of Vancomycin. Vancomycin remains high at 35.4 but she did get a dose in hospital yesterday morning. At best the patient is AAO x 1. The patient has very uneven behavior... I'm not sure if this is her normal vs. AMS. Wound cultures showing gram negative rods identified as MDR Acinetobacter. Urine with yeast. Will ask lab about sensitivities to Meropenem, AvyCaz, and Zerbaxa. Objective - Vital Signs/Intake and Output Vital Signs (last 24 hours): Temp Pulse Resp BP Pulse Ox 97.6 F 79 18 173/66 H 98 07/18/17 12:00 07/18/17 18:00 07/18/17 12:00 07/18/17 12:00 07/18/17 05:57 Intake and Output: 07/18/17 07/18/17 06:59 18:59 Intake Total 1160 720 Output Total 400 1800 Balance 760 -1080 - Medications Medications: Current Medications Acetaminophen (Tylenol 325mg Tab) 650 mg PO Q4H PRN PRN Reason: pain fever Last Admin: 07/18/17 07:59 Dose: 650 mg Aspirin (Aspirin Chewable) 81 mg PO DAILY [facility] Last Admin: 07/18/17 09:39 Dose: 81 mg Carvedilol (Coreg) 3.125 mg PO Q12 [facility] Last Admin: 07/18/17 09:40 Dose: 3.125 mg Clopidogrel Bisulfate (Plavix) 75 mg PO DAILY [facility] Last Admin: 07/18/17 09:40 Dose: 75 mg Famotidine (Pepcid) 40 mg PO HS [facility] Last Admin: 07/17/17 21:09 Dose: 40 mg Ferrous Sulfate (Feosol) 324 mg PO BID [facility] Last Admin: 07/18/17 17:46 Dose: Not Given Meropenem 500 mg/ Sodium (Chloride) 50 mls @ 100 mls/hr IVPB Q12 [facility] PRN Reason: Protocol Last Admin: 07/18/17 09:40 Dose: 100 mls/hr Dextrose/Sodium Chloride (Dextrose 5%/0.45% Ns 1000 Ml) 1,000 mls @ 60 mls/hr IV .[id number] [facility] Last Admin: 07/18/17 12:06 Dose: 60 mls/hr Insulin Human Regular (Humulin R Low) 0 units SC ACHS [facility] PRN Reason: Protocol Last Admin: 07/18/17 16:44 Dose: Not Given Insulin Degludec [ Tresiba Flextouch U- 200] 30 unit SC HS [facility] Last Admin: 07/17/17 21:10 Dose: Not Given Pioglitazone HCl (Actos) 45 mg PO DAILY [facility] Propranolol HCl (Inderal) 10 mg PO Q8 [facility] Last Admin: 07/18/17 14:46 Dose: Not Given Sitagliptin Phosphate (Januvia) 25 mg PO DAILY [facility] Last Admin: 07/18/17 09:40 Dose: 25 mg - Labs Labs: 07/18/17 06:10 07/18/17 06:10 PT 13.9 SECONDS (9.4-12.5) H 07/14/17 22:54 INR 1.21 (0.93-1.08) H 07/14/17 22:54 APTT 39.8 Seconds (25.1-36.5) H 07/14/17 22:54 - Constitutional Appears: Non-toxic, No Acute Distress, Chronically Ill - Head Exam Head Exam: ATRAUMATIC, NORMOCEPHALIC - Eye Exam Eye Exam: EOMI, PERRL Pupil Exam: NORMAL ACCOMODATION, PERRL - ENT Exam ENT Exam: Mucous Membranes Moist, Normal External Ear Exam, TM's Normal Bilaterally - Neck Exam Neck Exam: Full ROM, Normal Inspection - Respiratory Exam Respiratory Exam: Clear to Ausculation Bilateral, NORMAL BREATHING PATTERN. absent: Rales, Rhonchi, Wheezes - Cardiovascular Exam Cardiovascular Exam: REGULAR RHYTHM, RRR, +S1, +S2 - GI/Abdominal Exam GI & Abdominal Exam: Soft, Normal Bowel Sounds. absent: Distended, Tenderness - Extremities Exam Additional comments: Left foot with 3rd and 4th toe amputations. Lateral left foot ulceration full thickness. - Neurological Exam Neurological Exam: Alert, Awake, CN II-XII Intact, Oriented x3 - Psychiatric Exam Psychiatric exam: Normal Affect, Normal Mood - Skin Skin Exam: Dry Assessment and Plan - Assessment and Plan (Free Text) Assessment: 71 yo AA female with altered renal function and was poorly responsive at [facility]. The patient was on Vancomycin for antibiotic treatment. Will restart Meropenem and check Vancomycin levels fist given worsening creatinine levels. Local wound care. Still with decreased renal function despite normal values in the early part of June 2017. Likely multiple factors contributing to this including dehydration , poor oral appetite, and use of Vancomycin antibiotics. Unclear if the renal function will recover at this point... it is too early to tell. Recheck creatinine tomorrow. May need to consider Zyvox over Vancomycin for treatment given renal function. Check Vancomycin level tomorrow again. Level currently is 35.4 taken about 24 hours after the last administration of IV Vancomycin. Possible consideration of Zyvox use after Vancomycin levels normalize and if culture still suggest Enterococcus infection. Podiatry has recultured with foot. Will continue with renally dosed meropenem for now. Gram negative rods in wound cultures of the foot identified as MDR Acinetobacter. Will check with lab regarding sensitivities to additional antibiotics. Thank you for allowing me to participate in the care of the patient, we will follow with you.
--- NOTE | 2017-07-18 19:16 | US ---
HISTORY: Arm pain and swelling. Evaluate for deep venous thrombosis. PHYSICIAN(S): Johnathan Damian MD. FINDINGS: A PICC line is noted in the left central veins. Isolated over echogenic thrombus is noted in the left brachial vein related to the PICC line. The left central veins are patent without thrombus. There is no sonographic evidence for deep venous thrombosis in the visualized segments of the right upper extremity. IMPRESSION: 1. Subacute/ chronic limited echogenic DVT in the left brachial vein related the patient's PICC line.
[2017-07-18 22:20] LABS: PH,URINE 5.5 (4.7-8.0); URINE APPEARANCE CLOUDY (CLEAR); URINE BILIRUBIN NEGATIVE (NEGATIVE); URINE BLOOD LARGE (NEGATIVE); URINE COLOR LIGHT YELLOW (YELLOW); URINE GLUCOSE (UA) NEGATIVE (NEGATIVE); URINE LEUKOCYTE ESTERASE MODERATE Leu/uL (NEGATIVE); URINE PROTEIN 100 mg/dL (<30 mg/dL); URINE UROBILINOGEN 0.2 E.U./dL (<1 E.U./dL)
[2017-07-18 22:25] LABS: URINE BACTERIA LARGE (NEG); URINE RBC 25 - 30 /hpf (0-2); URINE WBC 20 - 25 /hpf (0-6)
[2017-07-18 22:26] LABS: URINE FINE GRANULAR CAST 0 - 2 /hpf (0-2)
[2017-07-18 22:27] LABS: URINE AMORPHOUS SEDIMENT MODERATE; URINE RED BLOOD CELL CAST 0-1 /hpf
[2017-07-18] MEDS: Insulin Degludec [Tresiba Flextouch U-200] SC SCH (22:31)
[2017-07-19] MEDS ORDERED: PRAMOXINE 1% TOP ONE (02:45)
--- NOTE | 2017-07-19 03:28 | PN ---
DATE: 07/18/2017 SUBJECTIVE: The patient is 71 years old female. The patient was seen and examined on the bedside late evening, looking comfortable. No nausea, vomiting or diarrhea. No hematuria or hematochezia. Looks awake and alert, but getting episodes of confusion. No fever. No chills. No big change in the status. PHYSICAL EXAMINATION: VITAL SIGNS: Temperature 97.6, blood pressure 120/80 , heart rate 55, respiratory rate of 18. HEENT: Head normocephalic, atraumatic. Eyes PERRLA. Extraocular muscles intact. Conjunctivae clear. Nose patent. Mucous membrane moist. NECK: Supple. No carotid bruit. No JVD. No thyromegaly. CHEST: Bilaterally symmetrical. HEART: S1 and S2 positive. LUNGS: Clear to auscultation. ABDOMEN: Soft. Bowel sounds positive. No organomegaly. EXTREMITIES: No edema. No cyanosis. NEUROLOGICAL: The patient is awake and alert, moving all four extremities, but getting episodes of confusion. LABORATORY DATA: White blood cells noted , hemoglobin 7.1, hematocrit 22.8, platelets 296. Sodium 146, potassium 3.7, BUN 20, creatinine 2.2. ASSESSMENT AND PLAN: Ms. Tamy Abbott with multiple medical problems, has acute kidney injury, on chronic disease, hypertension, blood pressure is not controlled yet, but starting of the patient on isotonic saline, currently on Coreg, may be we have to change IV fluid or increase the dose of Coreg as per Dr. Cosby. Sepsis, the patient with infected foot ulcer, currently on meropenem, being dosed for creatinine clearance less than 30, anemia - acute on chronic. The patient has a history of diabetes mellitus, hypothyroidism, status post left foot fifth ray resection, history of altered mental status, found to have infected left foot ulcer. History of urinary tract infection, skill labor is on the case. ID, Dr. Pack, is on the case also. Dr. Harry Burks, saw the patient for altered mental status. Gastrointestinal and deep venous thrombosis prophylaxes. We will followup. Deisy Gilman MD [facility] # [id number] [email or web address]
[2017-07-19] MEDS: Dextrose 5%/0.45% NS 1,000 ML IV SCH (04:28)
[2017-07-19] MEDS: Insulin Reg-LOW-Coverage SC SCH ×4 (08:09→23:27)
[2017-07-19] MEDS: Meropenem 500 MG in Sodium Chloride 0.9% 50 ML IVPB SCH ×2 (10:29→22:00)
--- NOTE | 2017-07-19 10:35 | PQF RENAL ---
This form is a permanent part of the medical record Dr. Cosby, Your consult on this patient done on 07/18 notes CKD. Please note that this diagnosis requires more specificy. Please provide stage of the CKD. Clarification of your documentation is requested to better reflect the severity of illness and intensity of treatment of your patient. Indicators present [] Oliguria/anuria [x] Edema/weight gain [] Hyponatremia [x] Confusion/mental status changes [x] Increased Blood Urea Nitrogen/Creatinine [] Increased Potassium/Decreased potassium [x] Anemia (male <13.5, female <12.0) [] Proteinuria [] Metabolic Acidosis OR Alkalosis [] Hypotension/shock [x] Decreased GFR [] Other: [] Location in the medical record that reflects the above clinical findings: PHYSICIAN'S RESPONSE Based on your medical judgment of the clinical indicators outlined above, are you treating this patient for a known or suspected: [X] Acute Renal Failure [] Acute Kidney Injury [] Azotemia/prerenal azotemia [] Chronic kidney disease Stage I [] Stage II [] Stage III [X] Stage IV [] [] Other condition/diagnosis:[] [] If Unable to Determine, please check the box, sign and date. Present On Admission (POA) Indicator: [X] Present at the time of admission [] Not present at the time of admission [] Clinically Undetermined In responding to this query, please exercise your independent professional judgment. The fact that a question is asked does not imply that any particular answer is desired or expected. Thank you for your clarification on this documentation. If you have any questions please call:[ ] * Thank you, [ ]Lashon Harmon [facility] #[id number] (please call if you have any questions) office mover Chronic Kidney Disease Stages *[employer]* Stage I GFR >90 Stage II GFR 60-89 Stage III GFR 30-59 Stage IV GFR 15-29 Stage V~~~~~~~~~~ GFR <15~~~~~~~~~~~~~ MTDD
[2017-07-19 11:10] LABS: HEMOGLOBIN 9.9 g/dL (12.0-16.0); MEAN CELL VOLUME 79.8 fl (80.0-105.0); MEAN CORPUSCULAR HGB CONC 32.6 g/dl (31.0-37.0); MEAN PLATELET VOLUME 9.8 fl (7.0-11.0); RBC 3.81 10^6/uL (3.5-6.1); RED CELL DISTRIBUTION WIDTH 15.4 % (11.5-14.5); WHITE BLOOD COUNT 9.3 10^3/ul (4.5-11.0)
--- NOTE | 2017-07-19 12:55 | CP.PCM.PN ---
<Sumaya Lieberman - Last Filed: 07/19/17 12:51> Subjective - Date & Time of Evaluation Date of Evaluation: 07/19/17 Time of Evaluation: 12:51 - Subjective Subjective: Podiatry Progress Note- Dr. Anderson/Cassandra 71 y/o female seen and evaluated at bedside this afternoon for lateral left foot full thickness ulceration. Patient is seen resting comfortably in bed, in NAD. Pt is agitated on exam, stating she wants to be pulled upright so she can pee. Pt appears altered and does not understand she has a urban catheter in place. Patient denies overnight events. Denies pain to the LE. Denies F/C/N/V/CP /SOB. No new pedal complaints. Objective - Vital Signs/Intake and Output Vital Signs (last 24 hours): Temp Pulse Resp BP Pulse Ox 98 F 78 20 185/73 H 100 07/19/17 12:00 07/19/17 12:00 07/19/17 12:00 07/19/17 06:21 07/19/17 06:30 Intake and Output: 07/19/17 07/19/17 06:59 18:59 Intake Total 1190 Output Total 450 Balance 740 - Medications Medications: Current Medications Acetaminophen (Tylenol 325mg Tab) 650 mg PO Q4H PRN PRN Reason: pain fever Last Admin: 07/19/17 02:01 Dose: 650 mg Aspirin (Aspirin Chewable) 81 mg PO DAILY [facility] Last Admin: 07/19/17 10:28 Dose: 81 mg Carvedilol (Coreg) 6.25 mg PO Q12H [facility] Last Admin: 07/19/17 06:21 Dose: 6.25 mg Clopidogrel Bisulfate (Plavix) 75 mg PO DAILY [facility] Last Admin: 07/19/17 10:29 Dose: 75 mg Famotidine (Pepcid) 40 mg PO HS [facility] Last Admin: 07/18/17 21:33 Dose: 40 mg Ferrous Sulfate (Feosol) 324 mg PO BID [facility] Last Admin: 07/19/17 10:29 Dose: 324 mg Meropenem 500 mg/ Sodium (Chloride) 50 mls @ 100 mls/hr IVPB Q12 [facility] PRN Reason: Protocol Last Admin: 07/19/17 10:29 Dose: 100 mls/hr Insulin Human Regular (Humulin R Low) 0 units SC ACHS [facility] PRN Reason: Protocol Last Admin: 07/19/17 08:09 Dose: Not Given Insulin Degludec [ Tresiba Flextouch U- 200] 30 unit SC HS [facility] Last Admin: 07/18/17 22:31 Dose: Not Given Pioglitazone HCl (Actos) 45 mg PO DAILY [facility] Propranolol HCl (Inderal) 10 mg PO Q8 [facility] Last Admin: 07/19/17 05:23 Dose: 10 mg Sitagliptin Phosphate (Januvia) 25 mg PO DAILY [facility] Last Admin: 07/19/17 10:29 Dose: 25 mg - Labs Labs: 07/19/17 11:07 07/18/17 06:10 PT 13.9 SECONDS (9.4-12.5) H 07/14/17 22:54 INR 1.21 (0.93-1.08) H 07/14/17 22:54 APTT 39.8 Seconds (25.1-36.5) H 07/14/17 22:54 - Constitutional Appears: Well, Non-toxic, No Acute Distress - Extremities Exam Additional comments: Left lower extremity focused exam: Vasc: DP/PT pulses palpable 1/4. Temperature gradient warm to cool. CFT < 3 sec x 3 digits. Mild pedal edema noted to lateral foot Derm: Open ulceration measuring 7 cm x 3 cm x 0.6cm to lateral forefoot with beefy red granular wound base. Maceration to lukas wound noted to be resolved. No active drainage, serous drainage noted to the dressing, no malodor, no tunneling or undermining present Neuro: Protective sensation absent, gross sensation diminished Ortho: No tenderness to palpation of lateral forefoot ulceration - Neurological Exam Neurological Exam: Alert, Awake - Psychiatric Exam Psychiatric exam: Agitated Assessment and Plan - Assessment and Plan (Free Text) Assessment: 71 y/o diabetic female with lateral left foot full thickness ulceration Plan: Patient seen and evaluated at bedside Discussed with attending Dr. Trujillo X-rays of L foot (-) for any acute osseous changes/acute OM MRI of L foot ordered, pending Arterial duplex studies pending Patient ulceration cleansed with saline solution and dressed with Maxorb and Optifoam Wound culture + for Acinetobacter Baumanii Continue IV abx per ID - Meropenem Continue Multipodus boots at all times in bed Podiatry will continue to follow while in house <Harrison Trujillo - Last Filed: 07/19/17 14:05> Objective - Vital Signs/Intake and Output Vital Signs (last 24 hours): Temp Pulse Resp BP Pulse Ox 98 F 70 20 176/80 H 100 07/19/17 12:00 07/19/17 13:29 07/19/17 12:00 07/19/17 13:29 07/19/17 06:30 Intake and Output: 07/19/17 07/19/17 06:59 18:59 Intake Total 1190 Output Total 450 Balance 740 - Medications Medications: Current Medications Acetaminophen (Tylenol 325mg Tab) 650 mg PO Q4H PRN PRN Reason: pain fever Last Admin: 07/19/17 02:01 Dose: 650 mg Aspirin (Aspirin Chewable) 81 mg PO DAILY [facility] Last Admin: 07/19/17 10:28 Dose: 81 mg Carvedilol (Coreg) 6.25 mg PO Q12H [facility] Last Admin: 07/19/17 06:21 Dose: 6.25 mg Clopidogrel Bisulfate (Plavix) 75 mg PO DAILY [facility] Last Admin: 07/19/17 10:29 Dose: 75 mg Famotidine (Pepcid) 40 mg PO HS [facility] Last Admin: 07/18/17 21:33 Dose: 40 mg Ferrous Sulfate (Feosol) 324 mg PO BID [facility] Last Admin: 07/19/17 10:29 Dose: 324 mg Meropenem 500 mg/ Sodium (Chloride) 50 mls @ 100 mls/hr IVPB Q12 [facility] PRN Reason: Protocol Last Admin: 07/19/17 10:29 Dose: 100 mls/hr Insulin Human Regular (Humulin R Low) 0 units SC ACHS [facility] PRN Reason: Protocol Last Admin: 07/19/17 11:30 Dose: Not Given Insulin Degludec [ Tresiba Flextouch U- 200] 30 unit SC HS [facility] Last Admin: 07/18/17 22:31 Dose: Not Given Pioglitazone HCl (Actos) 45 mg PO DAILY [facility] Propranolol HCl (Inderal) 10 mg PO Q8 [facility] Last Admin: 07/19/17 13:29 Dose: 10 mg Sitagliptin Phosphate (Januvia) 25 mg PO DAILY [facility] Last Admin: 07/19/17 10:29 Dose: 25 mg - Labs Labs: 07/19/17 11:07 07/18/17 06:10 PT 13.9 SECONDS (9.4-12.5) H 07/14/17 22:54 INR 1.21 (0.93-1.08) H 07/14/17 22:54 APTT 39.8 Seconds (25.1-36.5) H 07/14/17 22:54 Attending/Attestation - Attestation I have personally seen and examined this patient.: Yes I have fully participated in the care of the patient.: Yes I have reviewed all pertinent clinical information, including history, physical exam and plan: Yes
[2017-07-19 16:25] LABS: COMPLEMENT C4 53.1 mg/dL (14.0-44.0)
--- NOTE | 2017-07-19 17:54 | CP.PCM.PN ---
Subjective - Date & Time of Evaluation Date of Evaluation: 07/19/17 Time of Evaluation: 15:00 - Subjective Subjective: Infectious Disease Follow Up: July 18, 2017 71 yo AA female sent from [facility] for poor responsiveness. 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 History of E. coli and enterococcus. The E. coli is ESBL+. The patient can give little history of her own. She is currently awake and alert now. The patient was on IV Vancomycin at [place]. Unclear if she was still on Meropenem there. Renal insufficiency. The patient had normal creatinine in June 2017. Still elevated creatinine. Unclear if this is secondary to several factors such as dehydration, poor appetite, and use of Vancomycin. Vancomycin remains high at 35.4 but she did get a dose in hospital early in the hospital course. At best the patient is AAO x 1. The patient has very uneven behavior... I'm not sure if this is her normal vs. AMS. Wound cultures showing gram negative rods identified as MDR Acinetobacter. Urine with yeast. Will ask lab about sensitivities to Meropenem, AvyCaz, and Zerbaxa. Objective - Vital Signs/Intake and Output Vital Signs (last 24 hours): Temp Pulse Resp BP Pulse Ox 98 F 75 20 161/79 H 100 07/19/17 12:00 07/19/17 17:36 07/19/17 12:00 07/19/17 17:36 07/19/17 06:30 Intake and Output: 07/19/17 07/19/17 06:59 18:59 Intake Total 1190 540 Output Total 450 1100 Balance 740 -560 - Medications Medications: Current Medications Acetaminophen (Tylenol 325mg Tab) 650 mg PO Q4H PRN PRN Reason: pain fever Last Admin: 07/19/17 02:01 Dose: 650 mg Aspirin (Aspirin Chewable) 81 mg PO DAILY [facility] Last Admin: 07/19/17 10:28 Dose: 81 mg Carvedilol (Coreg) 6.25 mg PO Q12H [facility] Last Admin: 07/19/17 17:36 Dose: 6.25 mg Clopidogrel Bisulfate (Plavix) 75 mg PO DAILY [facility] Last Admin: 07/19/17 10:29 Dose: 75 mg Famotidine (Pepcid) 40 mg PO HS [facility] Last Admin: 07/18/17 21:33 Dose: 40 mg Ferrous Sulfate (Feosol) 324 mg PO BID [facility] Last Admin: 07/19/17 17:36 Dose: 324 mg Meropenem 500 mg/ Sodium (Chloride) 50 mls @ 100 mls/hr IVPB Q12 [facility] PRN Reason: Protocol Last Admin: 07/19/17 10:29 Dose: 100 mls/hr Insulin Human Regular (Humulin R Low) 0 units SC ACHS [facility] PRN Reason: Protocol Last Admin: 07/19/17 17:11 Dose: Not Given Insulin Degludec [ Tresiba Flextouch U- 200] 30 unit SC HS [facility] Last Admin: 07/18/17 22:31 Dose: Not Given Pioglitazone HCl (Actos) 45 mg PO DAILY [facility] Propranolol HCl (Inderal) 10 mg PO Q8 [facility] Last Admin: 07/19/17 13:29 Dose: 10 mg Sitagliptin Phosphate (Januvia) 25 mg PO DAILY [facility] Last Admin: 07/19/17 10:29 Dose: 25 mg - Labs Labs: 07/19/17 11:07 07/18/17 06:10 PT 13.9 SECONDS (9.4-12.5) H 07/14/17 22:54 INR 1.21 (0.93-1.08) H 07/14/17 22:54 APTT 39.8 Seconds (25.1-36.5) H 07/14/17 22:54 - Constitutional Appears: Non-toxic, No Acute Distress, Chronically Ill - Head Exam Head Exam: ATRAUMATIC, NORMOCEPHALIC - Eye Exam Eye Exam: EOMI, PERRL Pupil Exam: NORMAL ACCOMODATION, PERRL - ENT Exam ENT Exam: Mucous Membranes Moist, Normal External Ear Exam, TM's Normal Bilaterally - Neck Exam Neck Exam: Full ROM, Normal Inspection - Respiratory Exam Respiratory Exam: Clear to Ausculation Bilateral, NORMAL BREATHING PATTERN. absent: Rales, Rhonchi, Wheezes - Cardiovascular Exam Cardiovascular Exam: REGULAR RHYTHM, RRR, +S1, +S2 - GI/Abdominal Exam GI & Abdominal Exam: Soft, Normal Bowel Sounds. absent: Distended, Tenderness - Extremities Exam Additional comments: Left foot with 3rd and 4th toe amputations. Lateral left foot ulceration full thickness. - Neurological Exam Neurological Exam: Alert, Awake, CN II-XII Intact, Oriented x3 - Psychiatric Exam Psychiatric exam: Normal Affect, Normal Mood - Skin Skin Exam: Dry Assessment and Plan - Assessment and Plan (Free Text) Assessment: 71 yo AA female with altered renal function and was poorly responsive at [facility]. The patient was on Vancomycin for antibiotic treatment. Will restart Meropenem and check Vancomycin levels fist given worsening creatinine levels. Local wound care. Still with decreased renal function despite normal values in the early part of June 2017. Likely multiple factors contributing to this including dehydration , poor oral appetite, and use of Vancomycin antibiotics. Unclear if the renal function will recover at this point... it is too early to tell. Recheck creatinine tomorrow. May need to consider Zyvox over Vancomycin for treatment given renal function. Check Vancomycin level tomorrow again. Level currently is 35.4 taken about 24 hours after the last administration of IV Vancomycin. Possible consideration of Zyvox use after Vancomycin levels normalize and if culture still suggest Enterococcus infection. Podiatry has recultured with foot. Will continue with renally dosed meropenem for now. Gram negative rods in wound cultures of the foot identified as MDR Acinetobacter. Will check with lab regarding sensitivities to additional antibiotics. For now remains on meropenem. Thank you for allowing me to participate in the care of the patient, we will follow with you.
--- NOTE | 2017-07-19 19:45 | CP.PCM.PN ---
Subjective - Date & Time of Evaluation Date of Evaluation: 07/19/17 Time of Evaluation: 12:00 - Subjective Subjective: Patient tolerating diet; s/p 2 u prbc; had some shortness of breath earlier, not currently; Objective - Vital Signs/Intake and Output Vital Signs (last 24 hours): Temp Pulse Resp BP Pulse Ox 98 F 77 18 161/79 H 97 07/19/17 18:00 07/19/17 18:00 07/19/17 18:00 07/19/17 18:00 07/19/17 18:00 Intake and Output: 07/19/17 07/20/17 18:59 06:59 Intake Total 540 Output Total 1100 Balance -560 - Medications Medications: Current Medications Acetaminophen (Tylenol 325mg Tab) 650 mg PO Q4H PRN PRN Reason: pain fever Last Admin: 07/19/17 02:01 Dose: 650 mg Aspirin (Aspirin Chewable) 81 mg PO DAILY [facility] Last Admin: 07/19/17 10:28 Dose: 81 mg Carvedilol (Coreg) 12.5 mg PO Q12H [facility] Clopidogrel Bisulfate (Plavix) 75 mg PO DAILY [facility] Last Admin: 07/19/17 10:29 Dose: 75 mg Famotidine (Pepcid) 40 mg PO HS [facility] Last Admin: 07/18/17 21:33 Dose: 40 mg Ferrous Sulfate (Feosol) 324 mg PO BID [facility] Last Admin: 07/19/17 17:36 Dose: 324 mg Meropenem 500 mg/ Sodium (Chloride) 50 mls @ 100 mls/hr IVPB Q12 [facility] PRN Reason: Protocol Last Admin: 07/19/17 10:29 Dose: 100 mls/hr Insulin Human Regular (Humulin R Low) 0 units SC ACHS [facility] PRN Reason: Protocol Last Admin: 07/19/17 17:11 Dose: Not Given Insulin Degludec [ Tresiba Flextouch U- 200] 30 unit SC HS [facility] Last Admin: 07/18/17 22:31 Dose: Not Given Pioglitazone HCl (Actos) 45 mg PO DAILY [facility] Propranolol HCl (Inderal) 10 mg PO Q8 [facility] Last Admin: 07/19/17 13:29 Dose: 10 mg Sitagliptin Phosphate (Januvia) 25 mg PO DAILY [facility] Last Admin: 07/19/17 10:29 Dose: 25 mg - Labs Labs: 07/19/17 11:07 07/18/17 06:10 PT 13.9 SECONDS (9.4-12.5) H 07/14/17 22:54 INR 1.21 (0.93-1.08) H 07/14/17 22:54 APTT 39.8 Seconds (25.1-36.5) H 07/14/17 22:54 - Constitutional Appears: Non-toxic, No Acute Distress - Eye Exam Eye Exam: absent: Scleral icterus - ENT Exam ENT Exam: Mucous Membranes Moist - Respiratory Exam Respiratory Exam: Clear to Ausculation Bilateral. absent: Respiratory Distress - Cardiovascular Exam Cardiovascular Exam: RRR, +S1, +S2 - GI/Abdominal Exam GI & Abdominal Exam: Soft. absent: Distended, Tenderness - Extremities Exam Additional comments: proximal leg edema b/l - Neurological Exam Neurological Exam: Alert, Awake - Psychiatric Exam Psychiatric exam: absent: Agitated Additional comments: confused - Skin Skin Exam: Warm. absent: Cyanosis Assessment and Plan (1) Acute renal failure Assessment & Plan: ATN by urine sediment; unclear if this is just from vanco or there is another concomitant process, especially with the marked hematuria and proteinuria; nevertheless, renal function stable and patient responding well to IV lasix ( given after blood transfusion due to concern for volume overload); -continue to monitor renal function and electrolytes -continue to avoid nephrotoxic agents -awaiting quantitative assessment of proteinuria Status: Acute (2) Proteinuria Assessment & Plan: see above; if nephrotic range proteinuria present, will need further workup; Status: Acute (3) Cellulitis and abscess Assessment & Plan: Involving L foot; on meropenem, being dosed for CrCl < 30 ml/min; Status: Acute (4) Hypertension Assessment & Plan: Uncontrolled s/p 2 u prbc transfusion; given IV lasix, will increase coreg further to 12.5 mg bid; Status: Chronic
[2017-07-20 07:55] LABS: HEMOGLOBIN 7.6 g/dL (12.0-16.0); MEAN CELL VOLUME 80.1 fl (80.0-105.0); MEAN CORPUSCULAR HEMOGLOBIN 26.1 pg (25.0-35.0); MEAN CORPUSCULAR HGB CONC 32.6 g/dl (31.0-37.0); RBC 2.91 10^6/uL (3.5-6.1); RED CELL DISTRIBUTION WIDTH 15.7 % (11.5-14.5); WHITE BLOOD COUNT 7.6 10^3/ul (4.5-11.0)
[2017-07-20 08:10] LABS: ALB/GLOB RATIO 0.8 (1.1-1.8); ALBUMIN 2.7 g/dL (3.0-4.8); CALCIUM 8.4 mg/dL (8.4-10.5)
--- NOTE | 2017-07-20 08:33 | PN ---
DATE: 07/19/2017 SUBJECTIVE: Patient is seen and examined at the bedside, looking comfortable. Family is standing at the bedside also, feeding mother. The patient is legally blind. Is not a very good historian. No fever, no chills. Sometimes patient is getting agitated, pulling her IV lines. No overnight event happened. PHYSICAL EXAMINATION VITAL SIGNS: Temperature 98, heart rate 78, respiratory rate 20, blood pressure 185/76, pulse oximetry of 100. HEENT: Head normocephalic and atraumatic. Eyes, PERRLA. Extraocular muscles are intact. Conjunctivae clear. Nose patent. Mucous membranes moist. NECK: Supple. No carotid bruit. No JVD or thyromegaly. CHEST: Bilaterally symmetrical. HEART: S1 and S2 positive. LUNGS: Clear to auscultation. ABDOMEN: Soft. Bowel sounds present. No organomegaly. EXTREMITIES: Have trace edema. No cyanosis. NEUROLOGIC: Patient is awake and alert. Sometimes getting confused. She is not able to obey simple orders. LABORATORY DATA: White blood cells 9.7, hemoglobin 9.9, hematocrit 30.4, platelets 295. Sodium 146, potassium 3.7, BUN 20, creatinine 2.2, glucose 155. MEDICATIONS: Insulin, Actos, Inderal and Januvia. ASSESSMENT AND PLAN: The patient is a 71-year-old lady with anemia, hyperchloremia and renal insufficiency. Lathe Operator is on the case. Reviewed Dr. Alayna Trent's notes. Hyperglycemia, and has lateral foot full thickness ulceration. Discussion done with ns , the patient is going for MRI today. Continue meropenem. Continue multi podus boot at all times in the bed. I appreciated Dr. Anderson's input. The patient is noncompliant. History of anemia status post blood transfusion. Dementia, degenerative joint disease, peripheral vascular disease. Discussions done with son. All questions were answered. Gastrointestinal and deep venous thrombosis prophylaxis. Repeat labs. We will follow up. Deisy Gilman MD [email or web address]
[2017-07-20] MEDS ORDERED: Metoprolol 1 mg/ml Inj IVP ONE ×2 (08:50→09:27)
--- NOTE | 2017-07-20 09:07 | CP.PCM.CON ---
History of Present Illness - History of Present Illness History of Present Illness: Neuro Consult Note for Dr. Hoyt Reason for consult: Code Stroke 71yo female PMHx HTN, DM, dementia, L foot ulceration s/p toe amputations [place] [facility] [place] and cellulitis and ulceration of her left foot. Patient was admitted to the floors and had an FUR CUTTING MACHINE OPERATOR called this AM which turned into a Code Stroke. Patient was found to be completely unresponsive at 8:48 this AM. She was last seen at baseline around 8: 30 by those cleaning her. As per charts patient was responsive and communicative at baseline despite being a poor historian. However this AM she was unresponsive to both verbal and physical stimuli and Code Stroke was called. Further history unobtainable as patient was unresponsive. Review of Systems - Review of Systems Systems not reviewed;Unavailable: Acuity of Condition Past Patient History - Infectious Disease Hx of Infectious Diseases: None - Past Medical History & Family History Past Medical History?: Yes - Past Social History Smoking Status: Never Smoked - CARDIAC Hx Cardiac Disorders: Yes Hx Hypertension: Yes - PULMONARY Hx Respiratory Disorders: No - NEUROLOGICAL Hx Dementia: Yes - HEENT Hx HEENT Problems: No - RENAL Hx Chronic Kidney Disease: No - ENDOCRINE/METABOLIC Hx Diabetes Mellitus Type 2: Yes Hx Hypothyroidism: Yes - HEMATOLOGICAL/ONCOLOGICAL Hx Blood Disorders: No - INTEGUMENTARY Hx Dermatological Problems: Yes - MUSCULOSKELETAL/RHEUMATOLOGICAL Hx Musculoskeletal Disorders: Yes Hx Falls: Yes - GASTROINTESTINAL Hx Gastrointestinal Disorders: No - GENITOURINARY/GYNECOLOGICAL Hx Hematuria: Yes Hx Incontinence: Yes Hx Urinary Tract Infection: Yes - PSYCHIATRIC Hx Psychophysiologic Disorder: No - SURGICAL HISTORY Other/Comment: labial abscess removed-incision and drainage. left leg. left foot. 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 - ANESTHESIA Hx Anesthesia: Yes Hx Anesthesia Reactions: No Meds Allergies/Adverse Reactions: Allergies Allergy/AdvReac Type Severity Reaction Status Date / Time No Known Allergies Allergy Verified 01/18/17 12:18 - Medications Medications: Current Medications Acetaminophen (Tylenol 325mg Tab) 650 mg PO Q4H PRN PRN Reason: pain fever Last Admin: 07/19/17 23:30 Dose: 650 mg Aspirin (Aspirin Chewable) 81 mg PO DAILY [facility] Last Admin: 07/19/17 10:28 Dose: 81 mg Carvedilol (Coreg) 12.5 mg PO Q12H [facility] Last Admin: 07/19/17 20:00 Dose: 12.5 mg Clopidogrel Bisulfate (Plavix) 75 mg PO DAILY [facility] Last Admin: 07/19/17 10:29 Dose: 75 mg Famotidine (Pepcid) 40 mg PO HS [facility] Last Admin: 07/19/17 22:00 Dose: 40 mg Ferrous Sulfate (Feosol) 324 mg PO BID [facility] Last Admin: 07/19/17 17:36 Dose: 324 mg Meropenem 500 mg/ Sodium (Chloride) 50 mls @ 100 mls/hr IVPB Q12 [facility] PRN Reason: Protocol Last Admin: 07/19/17 22:00 Dose: 100 mls/hr Insulin Human Regular (Humulin R Low) 0 units SC ACHS [facility] PRN Reason: Protocol Last Admin: 07/19/17 23:27 Dose: Not Given Insulin Degludec [ Tresiba Flextouch U- 200] 30 unit SC [facility] Last Admin: 07/18/17 22:31 Dose: Not Given Pioglitazone HCl (Actos) 45 mg PO DAILY [facility] Propranolol HCl (Inderal) 10 mg PO Q8 [facility] Last Admin: 07/20/17 06:20 Dose: Not Given Sitagliptin Phosphate (Januvia) 25 mg PO DAILY [facility] Last Admin: 07/19/17 10:29 Dose: 25 mg Physical Exam - Constitutional Appears: Other (altered) - Eye Exam Eye Exam: PERRL. absent: Conjunctival injection, Scleral icterus Additional comments: closes eyes when trying to open them and looks down - ENT Exam ENT Exam: Mucous Membranes Dry - Respiratory Exam Respiratory Exam: NORMAL BREATHING PATTERN. absent: Accessory Muscle Use, Respiratory Distress - Cardiovascular Exam Cardiovascular Exam: +S1, +S2 - GI/Abdominal Exam GI & Abdominal Exam: Soft. absent: Tenderness - Neurological Exam Neurological exam: Altered Additional comments: unresponsive to verbal, tactile, noxious stimuli tries to close eyes shut when opened to be examined doll eyes present - Psychiatric Exam Additional comments: altered - Skin Skin Exam: Dry, Warm Results - Vital Signs Recent Vital Signs: Last Vital Signs Temp 98 F 07/19/17 18:00 Pulse 74 07/20/17 06:20 Resp 18 07/19/17 18:00 BP 167/63 H 07/20/17 06:20 Pulse Ox 97 07/19/17 18:00 - Labs Result Diagrams: 07/20/17 13:35 07/20/17 06:00 Labs: Laboratory Results - last 24 hr 07/19/17 07/19/17 07/19/17 08:30 11:07 11:29 WBC 9.3 RBC 3.81 Hgb 9.9 L D Hct 30.4 L MCV 79.8 L MCH 26.0 MCHC 32.6 RDW 15.4 H Plt Count 295 MPV 9.8 Sodium Potassium Chloride Carbon Dioxide Anion Gap BUN Creatinine Est GFR ( Amer) Est GFR (Non-Af Amer) POC Glucose (mg/dL) 121 H Random Glucose Calcium Total Bilirubin AST ALT Alkaline Phosphatase Total Protein Albumin Globulin Albumin/Globulin Ratio Complement C3 92.0 Complement C4 53.1 H 07/20/17 07/20/17 07/20/17 06:00 06:00 07:48 WBC 7.6 RBC 2.91 L Hgb 7.6 L D Hct 23.3 L MCV 80.1 MCH 26.1 MCHC 32.6 RDW 15.7 H Plt Count 249 MPV 10.0 Sodium 147 Potassium 3.6 Chloride 110 H Carbon Dioxide 26 Anion Gap 15 BUN 20 Creatinine 2.3 H Est GFR ( Amer) 25 Est GFR (Non-Af Amer) 21 POC Glucose (mg/dL) 101 Random Glucose 95 Calcium 8.4 Total Bilirubin 0.4 AST 21 ALT 18 Alkaline Phosphatase 69 Total Protein 6.2 Albumin 2.7 L Globulin 3.4 Albumin/Globulin Ratio 0.8 L Complement C3 Complement C4 Assessment & Plan - Assessment and Plan (Free Text) Assessment: 71yo female PMHx HTN, DM, dementia, L foot ulceration s/p toe amputations [place] [facility] [place] and cellulitis and ulceration of her left foot. Neurology consulted for Code Stroke Plan: -AMS likely metabolic encephalopathy etiology -CT head: negative -CTA head/neck: negative -MRI: pending will f/u read -unlikely to be a seizure or stroke -f/u ammonia and prolactin, troponin and EKG -f/u Echo -NPO -fall precautions -seizure precautions -HoB above 30degrees -aspiration precautions Neuro will continue to follow Discussed with Dr. Lai Jett PGY2
[2017-07-20 09:16] LABS: HDL CHOLESTEROL 30 mg/dL (29-60)
--- NOTE | 2017-07-20 09:16 | CT ---
PROCEDURE: CT HEAD WITHOUT CONTRAST. HISTORY: code stroke COMPARISON: 07/15/2017 TECHNIQUE: Axial computed tomography images were obtained through the head/brain without intravenous contrast. Radiation dose: Total exam DLP = 918 mGy-cm. This CT exam was performed using one or more of the following dose reduction techniques: Automated exposure control, adjustment of the mA and/or kV according to patient size, and/or use of iterative reconstruction technique. FINDINGS: HEMORRHAGE: No intracranial hemorrhage. BRAIN: No mass effect or edema. There is an arachnoid cyst in the left middle cranial fossa. This was demonstrated previously. There are no acute findings. VENTRICLES: Unremarkable. No hydrocephalus. CALVARIUM: Unremarkable. PARANASAL SINUSES: Unremarkable as visualized. No significant inflammatory changes. MASTOID AIR CELLS: Unremarkable as visualized. No inflammatory changes. OTHER FINDINGS: The findings were discussed with Iva Alcaraz at 9:14 a.m. IMPRESSION: No acute finding
[2017-07-20 09:27] LABS: LDL CHOLESTEROL 65 mg/dL (0-129)
[2017-07-20] MEDS ORDERED: Labetalol 5 mg/ml Inj 20ML IV ONE (09:32)
--- NOTE | 2017-07-20 10:01 | CT ---
PROCEDURE: CT Angiography of the neck and brain dated 07/20/2017 HISTORY: Code stroke. COMPARISON: Comparison made with concurrent CT scan brain TECHNIQUE: Contiguous helical/transaxial images of the neck were obtained from the level of the skull-base to the superior mediastinum in the arteriographic phase of enhancement. Coronal and sagittal reformats or also generated. IV contrast dose: 150 cc Omnipaque 350 Radiation Dose - DLP: 575.08 mGy-cm This CT exam was performed using one or more of the following dose reduction techniques: Automated exposure control, adjustment of the mA and/or kV according to patient size, and/or use of iterative reconstruction technique. . FINDINGS: The visualized portions of the thoracic aorta are patent with no significant atherosclerotic disease seen. Origins of the great vessels patent. The common carotid artery is, carotid bifurcations and internal carotid artery is also widely patent. The distal internal carotid arteries including the petrous cavernous and supraclinoid segments are also patent though there are partially calcified atherosclerotic plaque changes seen along both carotid bifurcations right greater than left. The changes appear to result in some mild narrowing of the right cavernous carotid artery. Both vertebral arteries are patent throughout. . Vertebral arteries are relatively symmetric in caliber. Basilar artery patent. . Visualized major branches of the [place] unremarkable. Distal branches of the anterior middle and posterior cerebral arteries are symmetric. No evidence of large aneurysm nor vascular malformation. . Note is made of short retropharyngeal course of of both common carotid arteries left-side slightly more medial in location than the right. OTHER FINDINGS: Re- demonstrated is a moderate-sized arachnoid cyst left anterior inferior middle cranial fossa. . Note also made of bilateral effusions and probably some associated atelectasis. There also appears to be a small amount of fluid in the cleft between the anterior margin of the ascending thoracic aorta and pulmonary trunk. . IMPRESSION: There is no evidence of significant atherosclerotic plaque involving the extracranial carotid arteries though there are some minor calcified plaque changes both cavernous segments more so on the right. The intra cerebral circulation is patent an appears relatively symmetric. . No evidence of large aneurysm nor vascular malformation. Note made of bilateral effusions and suspected minor atelectasis. There also appears to be a small amount of pericardial fluid as above. Followup CT scan of the chest could be performed for further evaluation.
[2017-07-20 10:13] LABS: ARTERIAL BLOOD GAS O2 SAT 96.6 % (95-98); ARTERIAL BLOOD GAS PCO2 36 mm/Hg (35-45); ARTERIAL BLOOD GAS PH 7.45 (7.35-7.45); ARTERIAL BLOOD GAS TCO2 26.1 mmol.L (22-28)
[2017-07-20 10:24] LABS: TROPONIN I < 0.01 ng/mL
--- NOTE | 2017-07-20 10:25 | PCM.RRT ---
LEAD C DEVELOPER Nurse Assessment - Situation Date: 07/20/17 Time LEAD C DEVELOPER was called: 08:42 LEAD C DEVELOPER Responder Arrival Time: 08:43 LEAD C DEVELOPER Location:: [facility] Room Number: 262-2 LEAD C DEVELOPER Reason for Call: Change in Mental Status LEAD C DEVELOPER Called By: Other Disciplines - IV IV Inserted during LEAD C DEVELOPER?: No IV Fluids Initiated During LEAD C DEVELOPER?: No - Respiratory Oxygen Delivery Method: Nasal Cannula @L/min Oxygen Flow Rate: 2 Was the Patient Ventilated with Bag/Mask 100% O2?: No Was the Patient Intubated?: No Was the Patient Placed on a Ventilator?: No - Medication Medications Administered During LEAD C DEVELOPER: Lopressor - Diagnostic Test Ordered EKG: Yes CT Scan: Yes - Stat Labs Ordered LEAD C DEVELOPER Stat Labs Ordered: PT/PTT CPR started during LEAD C DEVELOPER?: No - Vital Signs Vital Sign: Rapid Response Vital Sign Blood Pressure 219/96 - Finger Stick Blood Glucose Finger Stick Blood Glucose: 101 - Time LEAD C DEVELOPER Ended Time LEAD C DEVELOPER Ended: 08:52 - Recommendations Notifications: Attending Physician I.Reason for LEAD C DEVELOPER - A) Acute Change in Patient: (Select all that apply): Acute change in mental status Subjective: LEAD C DEVELOPER called at 0848. Patient was found to be unresponsive. Patient was previously cleaned this morning, in which she was responding to commands at baseline. Initial vitals were as follows BP: 220/110, HR: 80, O2 sat: 100%, Glucose: 101. Patient was evaluated and found to be unresponsive to verbal and physical stimuli. Patient was given Lopressor 5 mg IV STAT for elevated BP. CODE STROKE was called. Patient received Head CT and Head/Neck CTA, both which were found to be negative. Patient was evaluated by Financial Planning Consultant who accept patient for ICU admission. Patient will receive Brain MRI before heading to ICU. - Neurological Status Other (Please specify): Unresponsive - Respiratory Oxygen Delivery Method: Nasal Cannula @L/min Oxygen Flow Rate: 2 - Constitutional Appears: Non-toxic, In Acute Distress - Head Head Exam: ATRAUMATIC, NORMAL INSPECTION, NORMOCEPHALIC - Eyes Additional Comments: Left pupil dilated Right pupil constricted - Respiratory Exam Respiratory Exam: Clear to Ausculation Bilateral, NORMAL BREATHING PATTERN - Cardiovascular Exam Cardiovascular Exam: RRR, +S1, +S2 - GI/Abdominal Exam GI & Abdominal Exam: Soft, Normal Bowel Sounds. absent: Tenderness - Neurological Exam Neurological Exam: Altered - Extremities Exam Extremities Exam: Pedal Edema Plan - Assessment of Findings&Treatment Plan 71 year old female with PMH of HTN, DM, Dementia, and hypothyroidism presents with worsening AMS. Patient will be transferred to ICU for further treatment. PMD and family notified. Plan: Lopressor 5 mg IV Labetaol 10 mg IV EKG Brain MRI Head CT Head and Neck CTA EEG ABG Troponin Prolactin Transfer to ICU
[2017-07-20 10:31] LABS: INR 1.31 (0.93-1.08); PARTIAL THROMBOPLASTIN TIME 37.7 Seconds (25.1-36.5); PROTHROMBIN TIME 15.1 SECONDS (9.4-12.5)
--- NOTE | 2017-07-20 10:47 | CP.PCM.CON ---
<Hieu Moss - Last Filed: 07/20/17 10:35> History of Present Illness - History of Present Illness History of Present Illness: Hieu Moss D.O. PGY-2, Internal Medicine Resident, Critical Care Consultation Note 71 year old female with a PMH of HTN, DM, dementia, left foot ulceration with recent toe amputations who presented [place] [facility] for altered mental status. Patient was found to have increased in Cr and diagnosed as having acute tubular necrosis of unclear etiology, possible vancomycin. Patient was improving on the floor and able to speak full sentences per charts but still a poor historian. However this morning the patient was found to be completely unresponsive and a rapid response, and subsequently a code stroke was called. ICU consultation was requested. Patient was seen and evaluated at bedside. Unable to obtain any information as patient is completely unresponsive. Review of Systems - Review of Systems Systems not reviewed;Unavailable: Altered Mental Status Past Patient History - Infectious Disease Hx of Infectious Diseases: None - Past Medical History & Family History Past Medical History?: Yes - Past Social History Smoking Status: Never Smoked - CARDIAC Hx Cardiac Disorders: Yes Hx Hypertension: Yes - PULMONARY Hx Respiratory Disorders: No - NEUROLOGICAL Hx Dementia: Yes - HEENT Hx HEENT Problems: No - RENAL Hx Chronic Kidney Disease: No - ENDOCRINE/METABOLIC Hx Diabetes Mellitus Type 2: Yes Hx Hypothyroidism: Yes - HEMATOLOGICAL/ONCOLOGICAL Hx Blood Disorders: No - INTEGUMENTARY Hx Dermatological Problems: Yes - MUSCULOSKELETAL/RHEUMATOLOGICAL Hx Musculoskeletal Disorders: Yes Hx Falls: Yes - GASTROINTESTINAL Hx Gastrointestinal Disorders: No - GENITOURINARY/GYNECOLOGICAL Hx Hematuria: Yes Hx Incontinence: Yes Hx Urinary Tract Infection: Yes - PSYCHIATRIC Hx Psychophysiologic Disorder: No - SURGICAL HISTORY Other/Comment: labial abscess removed-incision and drainage. left leg. left foot. 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 - ANESTHESIA Hx Anesthesia: Yes Hx Anesthesia Reactions: No Meds Allergies/Adverse Reactions: Allergies Allergy/AdvReac Type Severity Reaction Status Date / Time No Known Allergies Allergy Verified 01/18/17 12:18 - Medications Medications: Current Medications Acetaminophen (Tylenol 325mg Tab) 650 mg PO Q4H PRN PRN Reason: pain fever Last Admin: 07/19/17 23:30 Dose: 650 mg Aspirin (Aspirin Chewable) 81 mg PO DAILY [facility] Last Admin: 07/19/17 10:28 Dose: 81 mg Carvedilol (Coreg) 12.5 mg PO Q12H [facility] Last Admin: 07/19/17 20:00 Dose: 12.5 mg Clopidogrel Bisulfate (Plavix) 75 mg PO DAILY [facility] Last Admin: 07/19/17 10:29 Dose: 75 mg Famotidine (Pepcid) 40 mg PO HS [facility] Last Admin: 07/19/17 22:00 Dose: 40 mg Ferrous Sulfate (Feosol) 324 mg PO BID [facility] Last Admin: 07/19/17 17:36 Dose: 324 mg Meropenem 500 mg/ Sodium (Chloride) 50 mls @ 100 mls/hr IVPB Q12 [facility] PRN Reason: Protocol Last Admin: 07/19/17 22:00 Dose: 100 mls/hr Insulin Human Regular (Humulin R Low) 0 units SC ACHS [facility] PRN Reason: Protocol Last Admin: 07/19/17 23:27 Dose: Not Given Insulin Degludec [ Tresiba Flextouch U- 200] 30 unit SC [facility] Last Admin: 07/18/17 22:31 Dose: Not Given Pioglitazone HCl (Actos) 45 mg PO DAILY [facility] Propranolol HCl (Inderal) 10 mg PO Q8 [facility] Last Admin: 07/20/17 06:20 Dose: Not Given Sitagliptin Phosphate (Januvia) 25 mg PO DAILY [facility] Last Admin: 07/19/17 10:29 Dose: 25 mg Physical Exam - Constitutional Appears: Other (unresponsive, appears comfortable, elderly) - Head Exam Head Exam: ATRAUMATIC, NORMOCEPHALIC - Eye Exam Eye Exam: EOMI, PERRL. absent: Scleral icterus Additional comments: 2-3mm reactive BL, closes eyes purposely when trying to open, when open looks down immediately - ENT Exam ENT Exam: Mucous Membranes Moist, Normal Oropharynx - Neck Exam Neck exam: Positive for: Normal Inspection. Negative for: Lymphadenopathy - Respiratory Exam Respiratory Exam: Clear to Auscultation Bilateral. absent: Rales, Rhonchi, Wheezes - Cardiovascular Exam Cardiovascular Exam: RRR, +S1, +S2, Systolic Murmur (2/6 2nd L ICS). absent: Gallop, Rubs - GI/Abdominal Exam GI & Abdominal Exam: Normal Bowel Sounds, Soft. absent: Distended, Tenderness - Extremities Exam Extremities exam: Positive for: pedal pulses present (+1 DP). Negative for: pedal edema Additional comments: left foot bandaged hx of full thickness ulceration - Neurological Exam Neurological exam: Altered Additional comments: GCS 3, tries to hold eyes closed and when opened looks down, doll eyes present, no response to deep pain in any extremity or centrally - Skin Skin Exam: Dry, Warm Results - Vital Signs Recent Vital Signs: Last Vital Signs Temp 98 F 07/19/17 18:00 Pulse 74 07/20/17 06:20 Resp 18 07/19/17 18:00 BP 167/63 H 07/20/17 06:20 Pulse Ox 97 07/19/17 18:00 - Labs Result Diagrams: 07/20/17 06:00 07/20/17 06:00 Labs: Laboratory Results - last 24 hr 07/19/17 07/19/17 07/19/17 08:30 11:07 11:29 WBC 9.3 RBC 3.81 Hgb 9.9 L D Hct 30.4 L MCV 79.8 L MCH 26.0 MCHC 32.6 RDW 15.4 H Plt Count 295 MPV 9.8 PT INR APTT pCO2 pO2 HCO3 ABG pH ABG Total CO2 ABG O2 Saturation ABG Base Excess ABG Potassium Glucose Lactate FiO2 Sodium Potassium Chloride Carbon Dioxide Anion Gap BUN Creatinine Est GFR ( Amer) Est GFR (Non-Af Amer) POC Glucose (mg/dL) 121 H Random Glucose Calcium Total Bilirubin AST ALT Alkaline Phosphatase Troponin I Total Protein Albumin Globulin Albumin/Globulin Ratio Triglycerides Cholesterol LDL Cholesterol Direct HDL Cholesterol Arterial Blood Potassium Complement C3 92.0 Complement C4 53.1 H 07/20/17 07/20/17 07/20/17 06:00 06:00 06:00 WBC 7.6 RBC 2.91 L Hgb 7.6 L D Hct 23.3 L MCV 80.1 MCH 26.1 MCHC 32.6 RDW 15.7 H Plt Count 249 MPV 10.0 PT INR APTT pCO2 pO2 HCO3 ABG pH ABG Total CO2 ABG O2 Saturation ABG Base Excess ABG Potassium Glucose Lactate FiO2 Sodium 147 Potassium 3.6 Chloride 110 H Carbon Dioxide 26 Anion Gap 15 BUN 20 Creatinine 2.3 H Est GFR ( Amer) 25 Est GFR (Non-Af Amer) 21 POC Glucose (mg/dL) Random Glucose 95 Calcium 8.4 Total Bilirubin 0.4 AST 21 ALT 18 Alkaline Phosphatase 69 Troponin I Total Protein 6.2 Albumin 2.7 L Globulin 3.4 Albumin/Globulin Ratio 0.8 L Triglycerides 129 Cholesterol 138 LDL Cholesterol Direct 65 HDL Cholesterol 30 Arterial Blood Potassium Complement C3 Complement C4 07/20/17 07/20/17 07/20/17 07:48 09:55 09:55 WBC RBC Hgb Hct MCV MCH MCHC RDW Plt Count MPV PT 15.1 H INR 1.31 H APTT 37.7 H pCO2 pO2 HCO3 ABG pH ABG Total CO2 ABG O2 Saturation ABG Base Excess ABG Potassium Glucose Lactate FiO2 Sodium Potassium Chloride Carbon Dioxide Anion Gap BUN Creatinine Est GFR ( Amer) Est GFR (Non-Af Amer) POC Glucose (mg/dL) 101 Random Glucose Calcium Total Bilirubin AST ALT Alkaline Phosphatase Troponin I < 0.01 Total Protein Albumin Globulin Albumin/Globulin Ratio Triglycerides Cholesterol LDL Cholesterol Direct HDL Cholesterol Arterial Blood Potassium Complement C3 Complement C4 07/20/17 07/20/17 10:08 10:09 WBC RBC Hgb Hct MCV MCH MCHC RDW Plt Count MPV PT INR APTT pCO2 36 pO2 65.0 L HCO3 25.0 ABG pH 7.45 ABG Total CO2 26.1 ABG O2 Saturation 96.6 ABG Base Excess 1.3 ABG Potassium 3.4 L Glucose 101 Lactate 0.5 L FiO2 32.0 Sodium 141.0 Potassium Chloride 110.0 H Carbon Dioxide Anion Gap BUN Creatinine Est GFR ( Amer) Est GFR (Non-Af Amer) POC Glucose (mg/dL) 90 Random Glucose Calcium Total Bilirubin AST ALT Alkaline Phosphatase Troponin I Total Protein Albumin Globulin Albumin/Globulin Ratio Triglycerides Cholesterol LDL Cholesterol Direct HDL Cholesterol Arterial Blood Potassium 3.4 L Complement C3 Complement C4 Assessment & Plan - Assessment and Plan (Free Text) Assessment: 71 year old female with a PMH of HTN, DM, dementia, left foot ulceration with recent toe amputations who presented [place] [facility] [place] [facility] for altered mental status, ICU consulted for complete unresponsiveness while on the floor. Plan: Neurologic Unresponsive, unclear etiology CT head stroke protocol negative CTA pending read MRI to be done now Appears to be metabolic in nature Will get thyroid panel, ammonia, troponin, and ABG to evaluate for etiology as well as monitor fingersticks Neurochecks q4h Cardiovascular Uncontrolled HTN with systolic of 219, given lopressor 5 and labetalol 10 during rapid response by RECREATION COORDINATOR team On ASA/plavix, ?hx of CAD, will get echo and troponins Vitals q1h Will add PRN hydralazine to maintain normotension Cont home propanolol Maintain MAP >65 Pulmonary Low threshold for intubation Pending ABG results PRN NC for now Gastrointestinal NPO for now Will need swallow eval once more alert Renal/Electrolytes SHANTEL from ATN per nephrology who has been following Avoid nephrotoxic drugs Maintain fluid balance Monitor IxOs Daily weights Hematology Anemia likely multifactorial S/p 2U PRBCs 2 days ago Stool occult positive Will monitor for bleeding Endocrinology Diabetic, will maintain RISS and accuchecks Glucose control per NICE-SUGAR trial Infectious Disease Known ulceration of left foot, podiatry following On meropenem ID following Will get procalcitonin GI ppx: famotidine Patient was seen and examined and case was discussed at length with attending physician. RECREATION COORDINATOR team has discussed with PMD. - Date & Time Date: 07/20/17 Time: 10:45 <Don Lim - Last Filed: 07/20/17 16:37> Meds - Medications Medications: Current Medications Acetaminophen (Tylenol 325mg Tab) 650 mg PO Q4H PRN PRN Reason: pain fever Last Admin: 07/19/17 23:30 Dose: 650 mg Aspirin (Aspirin Chewable) 81 mg PO DAILY [facility] Last Admin: 07/19/17 10:28 Dose: 81 mg Carvedilol (Coreg) 12.5 mg PO Q12H [facility] Last Admin: 07/19/17 20:00 Dose: 12.5 mg Clopidogrel Bisulfate (Plavix) 75 mg PO DAILY [facility] Last Admin: 07/19/17 10:29 Dose: 75 mg Famotidine (Pepcid) 40 mg PO HS [facility] Last Admin: 07/19/17 22:00 Dose: 40 mg Ferrous Sulfate (Feosol) 324 mg PO BID [facility] Last Admin: 07/19/17 17:36 Dose: 324 mg Hydralazine HCl (Apresoline) 10 mg IVP Q6 PRN PRN Reason: SBP >160 DBP>90 Meropenem 500 mg/ Sodium (Chloride) 50 mls @ 100 mls/hr IVPB Q12 [facility] PRN Reason: Protocol Last Admin: 07/19/17 22:00 Dose: 100 mls/hr Insulin Human Regular (Humulin R Low) 0 units SC [facility] PRN Reason: Protocol Last Admin: 07/19/17 23:27 Dose: Not Given Insulin Degludec [ Tresiba Flextouch U- 200] 30 unit SC [facility] Last Admin: 07/18/17 22:31 Dose: Not Given Pioglitazone HCl (Actos) 45 mg PO DAILY [facility] Propranolol HCl (Inderal) 10 mg PO Q8 [facility] Last Admin: 07/20/17 06:20 Dose: Not Given Sitagliptin Phosphate (Januvia) 25 mg PO DAILY [facility] Last Admin: 07/19/17 10:29 Dose: 25 mg Results - Vital Signs Recent Vital Signs: Last Vital Signs Temp 98 F 07/19/17 18:00 Pulse 85 07/20/17 13:40 Resp 19 07/20/17 13:40 BP 155/63 H 07/20/17 13:30 Pulse Ox 100 07/20/17 13:40 - Labs Result Diagrams: 07/20/17 13:35 07/20/17 06:00 Labs: Laboratory Results - last 24 hr 07/18/17 07/19/17 07/20/17 22:13 08:30 06:00 WBC 7.6 RBC 2.91 L Hgb 7.6 L D Hct 23.3 L MCV 80.1 MCH 26.1 MCHC 32.6 RDW 15.7 H Plt Count 249 MPV 10.0 PT INR APTT pCO2 pO2 HCO3 ABG pH ABG Total CO2 ABG O2 Saturation ABG Base Excess ABG Potassium Glucose Lactate FiO2 Sodium Potassium Chloride Carbon Dioxide Anion Gap BUN Creatinine Est GFR ( Amer) Est GFR (Non-Af Amer) POC Glucose (mg/dL) Random Glucose Calcium Phosphorus Magnesium Total Bilirubin AST ALT Alkaline Phosphatase Ammonia Troponin I Total Protein Albumin Globulin Albumin/Globulin Ratio Triglycerides Cholesterol LDL Cholesterol Direct HDL Cholesterol Arterial Blood Potassium Ur Random Creatinine 102 Urine Total Volume 27.7 Microalb/Creat Ratio 272 H Complement C3 92.0 Complement C4 53.1 H 07/20/17 07/20/17 07/20/17 06:00 06:00 07:48 WBC RBC Hgb Hct MCV MCH MCHC RDW Plt Count MPV PT INR APTT pCO2 pO2 HCO3 ABG pH ABG Total CO2 ABG O2 Saturation ABG Base Excess ABG Potassium Glucose Lactate FiO2 Sodium 147 Potassium 3.6 Chloride 110 H Carbon Dioxide 26 Anion Gap 15 BUN 20 Creatinine 2.3 H Est GFR ( Amer) 25 Est GFR (Non-Af Amer) 21 POC Glucose (mg/dL) 101 Random Glucose 95 Calcium 8.4 Phosphorus Magnesium Total Bilirubin 0.4 AST 21 ALT 18 Alkaline Phosphatase 69 Ammonia Troponin I Total Protein 6.2 Albumin 2.7 L Globulin 3.4 Albumin/Globulin Ratio 0.8 L Triglycerides 129 Cholesterol 138 LDL Cholesterol Direct 65 HDL Cholesterol 30 Arterial Blood Potassium Ur Random Creatinine Urine Total Volume Microalb/Creat Ratio Complement C3 Complement C4 07/20/17 07/20/17 07/20/17 09:55 09:55 10:00 WBC RBC Hgb Hct MCV MCH MCHC RDW Plt Count MPV PT 15.1 H INR 1.31 H APTT 37.7 H pCO2 pO2 HCO3 ABG pH ABG Total CO2 ABG O2 Saturation ABG Base Excess ABG Potassium Glucose Lactate FiO2 Sodium Potassium Chloride Carbon Dioxide Anion Gap BUN Creatinine Est GFR ( Amer) Est GFR (Non-Af Amer) POC Glucose (mg/dL) Random Glucose Calcium Phosphorus 3.9 Magnesium 1.7 Total Bilirubin AST ALT Alkaline Phosphatase Ammonia Troponin I < 0.01 Total Protein Albumin Globulin Albumin/Globulin Ratio Triglycerides Cholesterol LDL Cholesterol Direct HDL Cholesterol Arterial Blood Potassium Ur Random Creatinine Urine Total Volume Microalb/Creat Ratio Complement C3 Complement C4 07/20/17 07/20/17 07/20/17 10:08 10:09 12:23 WBC RBC Hgb Hct MCV MCH MCHC RDW Plt Count MPV PT INR APTT pCO2 36 pO2 65.0 L HCO3 25.0 ABG pH 7.45 ABG Total CO2 26.1 ABG O2 Saturation 96.6 ABG Base Excess 1.3 ABG Potassium 3.4 L Glucose 101 Lactate 0.5 L FiO2 32.0 Sodium 141.0 Potassium Chloride 110.0 H Carbon Dioxide Anion Gap BUN Creatinine Est GFR ( Amer) Est GFR (Non-Af Amer) POC Glucose (mg/dL) 90 94 Random Glucose Calcium Phosphorus Magnesium Total Bilirubin AST ALT Alkaline Phosphatase Ammonia Troponin I Total Protein Albumin Globulin Albumin/Globulin Ratio Triglycerides Cholesterol LDL Cholesterol Direct HDL Cholesterol Arterial Blood Potassium 3.4 L Ur Random Creatinine Urine Total Volume Microalb/Creat Ratio Complement C3 Complement C4 07/20/17 07/20/17 13:29 13:35 WBC 10.0 D RBC 3.79 Hgb 9.7 L D Hct 30.3 L MCV 79.9 L MCH 25.6 MCHC 32.0 RDW 15.7 H Plt Count 316 MPV 9.7 PT INR APTT pCO2 pO2 HCO3 ABG pH ABG Total CO2 ABG O2 Saturation ABG Base Excess ABG Potassium Glucose Lactate FiO2 Sodium Potassium Chloride Carbon Dioxide Anion Gap BUN Creatinine Est GFR ( Amer) Est GFR (Non-Af Amer) POC Glucose (mg/dL) Random Glucose Calcium Phosphorus Magnesium Total Bilirubin AST ALT Alkaline Phosphatase Ammonia < 9 L Troponin I Total Protein Albumin Globulin Albumin/Globulin Ratio Triglycerides Cholesterol LDL Cholesterol Direct HDL Cholesterol Arterial Blood Potassium Ur Random Creatinine Urine Total Volume Microalb/Creat Ratio Complement C3 Complement C4 Attending/Attestation - Attestation I have personally seen and examined this patient.: Yes I have fully participated in the care of the patient.: Yes I have reviewed all pertinent clinical information: Yes Notes (Text): 07/20/17 13:57 71 yo female who was recently admitted to [facility] with AMS, which initially was fluctuating, but took sharp turn to worse earlier today, necessitating RECREATION COORDINATOR and raising concern for ability to protect airways. CTH -ve for bleed, MRI brain - ve for acute stroke, CTA head--is unremarkable. ABG--no c02 retention, ammonia level is pending, EEG is pending. afebrile and no leukocytosis--less likely worsening of septic encephalopathy, nevetheless cntinue with abx. troponin is neg, no hypoxemia and not in respiratory distress. Upon transfer to ICU mental status substantially improved, patient was awake, alert, following commands, maintaining conversation, able to protect airways. VS relatively stable. ccm time 40 min
--- NOTE | 2017-07-20 11:56 | MRI ---
PROCEDURE: MRI BRAIN WITHOUT CONTRAST. HISTORY: Code stroke COMPARISON: None. TECHNIQUE: Multiplanar, multisequence MR images of the brain were obtained without intravenous contrast enhancement. Study is limited by motion artifact. FINDINGS: HEMORRHAGE: No acute parenchymal, subarachnoid or extra-axial hemorrhage. No evidence hemosiderin deposition identified on gradient echo weighted sequence. DWI: No evidence of an acute or early subacute infarction seen on diffusion imaging. BRAIN PARENCHYMA: There appears to be some minimal chronic periventricular white matter ischemic changes and brainstem. Re- demonstrated is a moderate-sized arachnoid cyst left anteromedial inferior middle cranial fossa Moderate generalized volume loss. VENTRICLES: No obstructive hydrocephalus. CRANIUM: No acute calvarial abnormalities. Questionable osteoma arising from the inner table left temporal calvarium with a smaller similar focus arising from the right temporal calvarium. ORBITS: Orbits and contents unremarkable PARANASAL SINUSES/MASTOIDS: Clear VASCULAR SYSTEM: Visualized major vascular flow voids at skull base patent. The OTHER FINDINGS: None. IMPRESSION: Limited motion degraded study. No evidence of acute intracranial hemorrhage or infarction. Minor chronic white matter and brainstem ischemic changes. Moderate generalized volume loss.
[2017-07-20] MEDS: Insulin Reg-LOW-Coverage SC SCH ×4 (12:00→22:00)
--- NOTE | 2017-07-20 13:19 | MRI ---
PROCEDURE: MRI of the left foot without contrast HISTORY: left foot DM ulcer, hx of gas gangrene COMPARISON: TECHNIQUE: MRI of the left foot was performed in the sagittal and coronal plane using T1 and fat suppressed T2 imaging. The study was limited by motion artifact. The patient could not complete all of the pulse sequences. FINDINGS: There is some marrow edema in the 5th metatarsal as well as destruction of the lateral cortex. Findings are consistent with osteomyelitis. Findings are seen on image 23 series 5. There is adjacent soft tissue swelling and edema. IMPRESSION: Marrow edema and cortical destruction in the 5th metatarsal consistent with osteomyelitis. Limited study
[2017-07-20 13:45] LABS: MEAN CELL VOLUME 79.9 fl (80.0-105.0); MEAN CORPUSCULAR HEMOGLOBIN 25.6 pg (25.0-35.0); MEAN PLATELET VOLUME 9.7 fl (7.0-11.0); RBC 3.79 10^6/uL (3.5-6.1); RED CELL DISTRIBUTION WIDTH 15.7 % (11.5-14.5)
[2017-07-20 13:56] LABS: HEMOGLOBIN 9.7 g/dL (12.0-16.0)
[2017-07-20 14:08] LABS: FREE T4 1.96 ng/dL (0.78-2.19)
[2017-07-20 17:09] LABS: PROLACTIN 7.7 ng/mL (3.0-18.9)
--- NOTE | 2017-07-20 19:45 | CP.PCM.PN ---
Subjective - Date & Time of Evaluation Date of Evaluation: 07/20/17 Time of Evaluation: 12:00 - Subjective Subjective: Patient s/p code stroke this morning, called due to being unresponsive; however , suddenly starting verbalizing within a couple of hours; Objective - Vital Signs/Intake and Output Vital Signs (last 24 hours): Temp Pulse Resp BP Pulse Ox 98 F 84 26 H 170/100 H 96 07/19/17 18:00 07/20/17 19:20 07/20/17 19:10 07/20/17 19:20 07/20/17 19:10 Intake and Output: 07/20/17 07/21/17 18:59 06:59 Intake Total 0 Output Total 1800 Balance -1800 - Medications Medications: Current Medications Acetaminophen (Tylenol 325mg Tab) 650 mg PO Q4H PRN PRN Reason: pain fever Last Admin: 07/19/17 23:30 Dose: 650 mg Aspirin (Aspirin Chewable) 81 mg PO DAILY [facility] Last Admin: 07/19/17 10:28 Dose: 81 mg Atorvastatin Calcium (Lipitor) 40 mg PO DIN [facility] Last Admin: 07/20/17 19:08 Dose: Not Given Carvedilol (Coreg) 12.5 mg PO Q12H [facility] Last Admin: 07/20/17 10:00 Dose: Not Given Clopidogrel Bisulfate (Plavix) 75 mg PO DAILY [facility] Last Admin: 07/19/17 10:29 Dose: 75 mg Famotidine (Pepcid) 20 mg PO [facility] Ferrous Sulfate (Feosol) 324 mg PO BID [facility] Last Admin: 07/20/17 10:00 Dose: Not Given Hydralazine HCl (Apresoline) 10 mg IVP Q6 PRN PRN Reason: SBP >160 DBP>90 Last Admin: 07/20/17 19:20 Dose: 10 mg Meropenem 500 mg/ Sodium (Chloride) 50 mls @ 100 mls/hr IVPB Q12 [facility] PRN Reason: Protocol Last Admin: 07/19/17 22:00 Dose: 100 mls/hr Insulin Human Regular (Humulin R Low) 0 units SC ACHS [facility] PRN Reason: Protocol Last Admin: 07/20/17 19:07 Dose: Not Given Insulin Degludec [ Tresiba Flextouch U- 200] 30 unit SC [facility] Last Admin: 07/18/17 22:31 Dose: Not Given Pioglitazone HCl (Actos) 45 mg PO DAILY [facility] Propranolol HCl (Inderal) 10 mg PO Q8 [facility] Last Admin: 07/20/17 19:07 Dose: Not Given Sitagliptin Phosphate (Januvia) 25 mg PO DAILY [facility] Last Admin: 07/19/17 10:29 Dose: 25 mg - Labs Labs: 07/20/17 13:35 07/20/17 06:00 PT 15.1 SECONDS (9.4-12.5) H 07/20/17 09:55 INR 1.31 (0.93-1.08) H 07/20/17 09:55 APTT 37.7 Seconds (25.1-36.5) H 07/20/17 09:55 - Constitutional Appears: Non-toxic, No Acute Distress - Eye Exam Eye Exam: absent: Scleral icterus - ENT Exam ENT Exam: Mucous Membranes Moist - Respiratory Exam Respiratory Exam: Clear to Ausculation Bilateral. absent: Respiratory Distress - Cardiovascular Exam Cardiovascular Exam: RRR, +S1, +S2 - GI/Abdominal Exam GI & Abdominal Exam: Soft. absent: Distended, Tenderness - Extremities Exam Additional comments: marked b/l leg edema extending to upper thighs; - Neurological Exam Neurological Exam: Alert, Awake - Psychiatric Exam Psychiatric exam: absent: Agitated, Normal Affect - Skin Skin Exam: Warm. absent: Cyanosis Assessment and Plan (1) Acute renal failure Assessment & Plan: ATN, now with additional renal insult this morning s/p IV contrast study; non- oliguric renal failure; will monitor closely; -no role for IVF to reverse SHANTEL, goal should be to keep euvolemic and avoid further nephrotoxic agents; Status: Acute (2) Proteinuria Assessment & Plan: Relatively mild per microalbumin/creatinine ratio; awaiting urine total protein/ creat; otherwise, no further workup needed for now; Status: Acute (3) Cellulitis and abscess Assessment & Plan: On meropenem, continue to dose for CrCl < 30 ml/min; Status: Acute (4) Hypertension Assessment & Plan: BP remains elevated, worsened by not being able to take PO meds; currently on hydralazine 10 mg q6h prn, continue; Status: Acute
--- NOTE | 2017-07-20 20:16 | CP.PCM.PN ---
Subjective - Date & Time of Evaluation Date of Evaluation: 07/20/17 Time of Evaluation: 16:30 - Subjective Subjective: Infectious Disease Follow Up: July 20, 2017 71 yo AA female sent from [facility] for poor responsiveness. 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 History of E. coli and enterococcus. The E. coli is ESBL+. The patient can give little history of her own. She is currently awake and alert now. The patient was on IV Vancomycin at [facility]. Unclear if she was still on Meropenem there. Renal insufficiency. The patient had normal creatinine in June 2017. Still elevated creatinine. Unclear if this is secondary to several factors such as dehydration, poor appetite, and use of Vancomycin. Vancomycin remains high at 35.4 but she did get a dose in hospital early in the hospital course. At best the patient is AAO x 1. The patient has very uneven behavior... I'm not sure if this is her normal vs. AMS. Wound cultures showing gram negative rods identified as MDR Acinetobacter. Urine with yeast. Patient found unresponsive this AM. The patient had rapid response and Code Stroke called. Found to be severely hypertensive this AM. Taken to ICU for further care. The patient has improved since transfer to ICU and is currently awake and alert. Objective - Vital Signs/Intake and Output Vital Signs (last 24 hours): Temp Pulse Resp BP Pulse Ox 98 F 84 26 H 170/100 H 96 07/19/17 18:00 07/20/17 19:20 07/20/17 19:10 07/20/17 19:20 07/20/17 19:10 Intake and Output: 07/20/17 07/21/17 18:59 06:59 Intake Total 0 Output Total 1800 Balance -1800 - Medications Medications: Current Medications Acetaminophen (Tylenol 325mg Tab) 650 mg PO Q4H PRN PRN Reason: pain fever Last Admin: 07/19/17 23:30 Dose: 650 mg Aspirin (Aspirin Chewable) 81 mg PO DAILY [facility] Last Admin: 07/19/17 10:28 Dose: 81 mg Atorvastatin Calcium (Lipitor) 40 mg PO DIN [facility] Last Admin: 07/20/17 19:08 Dose: Not Given Carvedilol (Coreg) 12.5 mg PO Q12H [facility] Last Admin: 07/20/17 10:00 Dose: Not Given Clopidogrel Bisulfate (Plavix) 75 mg PO DAILY [facility] Last Admin: 07/19/17 10:29 Dose: 75 mg Famotidine (Pepcid) 20 mg PO HS [facility] Ferrous Sulfate (Feosol) 324 mg PO BID [facility] Last Admin: 07/20/17 10:00 Dose: Not Given Hydralazine HCl (Apresoline) 10 mg IVP Q6 PRN PRN Reason: SBP >160 DBP>90 Last Admin: 07/20/17 19:20 Dose: 10 mg Meropenem 500 mg/ Sodium (Chloride) 50 mls @ 100 mls/hr IVPB Q12 [facility] PRN Reason: Protocol Last Admin: 07/19/17 22:00 Dose: 100 mls/hr Insulin Human Regular (Humulin R Low) 0 units SC ACHS [facility] PRN Reason: Protocol Last Admin: 07/20/17 19:07 Dose: Not Given Insulin Degludec [ Tresiba Flextouch U- 200] 30 unit SC [facility] Last Admin: 07/18/17 22:31 Dose: Not Given Pioglitazone HCl (Actos) 45 mg PO DAILY [facility] Propranolol HCl (Inderal) 10 mg PO Q8 [facility] Last Admin: 07/20/17 19:07 Dose: Not Given Sitagliptin Phosphate (Januvia) 25 mg PO DAILY [facility] Last Admin: 07/19/17 10:29 Dose: 25 mg - Labs Labs: 07/20/17 13:35 07/20/17 06:00 PT 15.1 SECONDS (9.4-12.5) H 07/20/17 09:55 INR 1.31 (0.93-1.08) H 07/20/17 09:55 APTT 37.7 Seconds (25.1-36.5) H 07/20/17 09:55 - Constitutional Appears: Non-toxic, No Acute Distress, Chronically Ill - Head Exam Head Exam: ATRAUMATIC, NORMOCEPHALIC - Eye Exam Eye Exam: EOMI, PERRL Pupil Exam: NORMAL ACCOMODATION, PERRL - ENT Exam ENT Exam: Mucous Membranes Moist, Normal External Ear Exam, TM's Normal Bilaterally - Neck Exam Neck Exam: Full ROM, Normal Inspection - Respiratory Exam Respiratory Exam: Clear to Ausculation Bilateral, NORMAL BREATHING PATTERN. absent: Rales, Rhonchi, Wheezes - Cardiovascular Exam Cardiovascular Exam: REGULAR RHYTHM, RRR, +S1, +S2 - GI/Abdominal Exam GI & Abdominal Exam: Soft, Normal Bowel Sounds. absent: Distended, Tenderness - Extremities Exam Additional comments: Left foot with 3rd and 4th toe amputations. Lateral left foot ulceration full thickness. - Neurological Exam Neurological Exam: Alert, Awake, CN II-XII Intact, Oriented x3 - Psychiatric Exam Psychiatric exam: Normal Affect, Normal Mood Assessment and Plan - Assessment and Plan (Free Text) Assessment: 71 yo AA female with altered renal function and was poorly responsive at [facility]. The patient was on Vancomycin for antibiotic treatment. Will restart Meropenem and check Vancomycin levels fist given worsening creatinine levels. Local wound care. Still with decreased renal function despite normal values in the early part of June 2017. Likely multiple factors contributing to this including dehydration , poor oral appetite, and use of Vancomycin antibiotics. Unclear if the renal function will recover at this point... it is too early to tell. Recheck creatinine tomorrow. May need to consider Zyvox over Vancomycin for treatment given renal function. Check Vancomycin level tomorrow again. Level currently is 35.4 taken about 24 hours after the last administration of IV Vancomycin. Possible consideration of Zyvox use after Vancomycin levels normalize and if culture still suggest Enterococcus infection. Podiatry has recultured with foot. Will continue with renally dosed meropenem for now. Gram negative rods in wound cultures of the foot identified as MDR Acinetobacter. Will check with lab regarding sensitivities to additional antibiotics. For now remains on meropenem. Brought to MICU after being found unresponsive. Severely hypertensive during rapid response. After a few hours in the MICU, the patient is now awake and alert. Continuing on meropenem. The patient has been afebrile and has had no leukocytosis. Thank you for allowing me to participate in the care of the patient, we will follow with you.
--- NOTE | 2017-07-20 20:28 | CARD ---
APPROVED REPORT EXAM: Two-dimensional and M-mode echocardiogram with Doppler and color Doppler. INDICATION BUBBLE STUDY...R/O PFO 2D DIMENSIONS Left Atrium (2D)4.2 (1.6-4.0cm)IVSd1.4 (0.7-1.1cm) LVDd4.7 (3.9-5.9cm)PWd1.5 (0.7-1.1cm) LVDs3.5 (2.5-4.0cm)FS (%) 26.1 % LVEF (%)51.3 (>50%) M-Mode DIMENSIONS Aortic Root3.20 (2.2-3.7cm)Aortic Cusp Exc.1.70 (1.5-2.0cm) Aortic Valve AoV Peak Phghdhtk467.0cm/Aldo Peak GR.9mmHg Mitral Valve MV E Vpkpdjav263.0cm/sMV A Irlchfca364.0cm/sE/A ratio1.0 TDI Lateral E' Peak V5.26cm/sMedial E' Peak V5.85cm/sE/Lateral E'23.2 E/Medial E'20.9 Pulmonary Valve PV Peak Vdpqoynx76.9cm/sPV Peak Grad.3mmHg Tricuspid Valve TR Peak Ukujdrsd190jz/sRAP [id number] Peak Gr.40mmHg [id number] LEFT VENTRICLE The left ventricle is normal size. There is mild concentric left ventricular hypertrophy. The left ventricular function is normal. The left ventricular ejection fraction is within the normal range. There is normal LV segmental wall motion. Transmitral Doppler flow pattern is Grade I-abnormal relaxation pattern. RIGHT VENTRICLE The right ventricle is normal size. There is normal right ventricular wall thickness. The right ventricular systolic function is normal. ATRIA The left atrium is borderline dilated. The right atrium is borderline dilated. The interatrial septum is intact with no evidence for an atrial septal defect. AORTIC VALVE The aortic valve is normal in structure. No aortic regurgitation is present. There is no aortic valvular stenosis. MITRAL VALVE Mitral regurgitation is mild. TRICUSPID VALVE There is mild tricuspid regurgitation. There is mild to moderate pulmonary hypertension. GREAT VESSELS The aortic root is normal in size. PERICARDIAL EFFUSION There is a small circumferential pericardial effusion. <Conclusion> The left ventricle is normal size. There is mild concentric left ventricular hypertrophy. The left ventricular function is normal. The left ventricular ejection fraction is within the normal range. There is normal LV segmental wall motion. Transmitral Doppler flow pattern is Grade I-abnormal relaxation pattern. Mitral regurgitation is mild. There is mild tricuspid regurgitation. There is mild to moderate pulmonary hypertension. The interatrial septum is intact with no evidence for an atrial septal defect.
[2017-07-20] MEDS: Meropenem 500 MG in Sodium Chloride 0.9% 50 ML IVPB SCH (21:21)
--- NOTE | 2017-07-20 21:50 | CARD ---
APPROVED REPORT EKG Measurement Heart [id number] <Conclusion> Sinus rhythm with short MS with premature supraventricular complexes with occasional premature ventricular complexes Possible Left atrial enlargement Prolonged QT Abnormal ECG
[2017-07-21 06:59] LABS: BASO # 0.03 K/mm3 (0.0-2.0); BASO % 0.3 % (0.0-3.0); EOS # 0.2 (0.0-0.7); EOS % 2.1 % (1.5-5.0); GRAN # 7.59 (1.4-6.5); GRAN % 76.1 % (50.0-68.0); HEMOGLOBIN 9.5 g/dL (12.0-16.0); LYMPH # 1.2 (1.2-3.4); LYMPH % 11.8 % (22.0-35.0); MEAN CELL VOLUME 79.5 fl (80.0-105.0); MEAN CORPUSCULAR HEMOGLOBIN 25.3 pg (25.0-35.0); MEAN CORPUSCULAR HGB CONC 31.8 g/dl (31.0-37.0); MEAN PLATELET VOLUME 9.9 fl (7.0-11.0); MONO % 9.7 % (1.0-6.0); RBC 3.76 10^6/uL (3.5-6.1); RED CELL DISTRIBUTION WIDTH 15.8 % (11.5-14.5)
[2017-07-21] MEDS: Insulin Reg-LOW-Coverage SC SCH ×4 (07:30→21:47)
--- NOTE | 2017-07-21 08:44 | CP.PCM.PN ---
Subjective - Date & Time of Evaluation Date of Evaluation: 07/21/17 Time of Evaluation: 08:15 - Subjective Subjective: PGY2 Neuro progress note for Dr. Hoyt Patient seen and examined at bedside. Nursing reports that overnight she would scream out intermittently and was confused. Family member was in the unit last night and stated that this was patient's baseline.This AM she was oriented to her self and place and could tell me the name of her daughter. Patient denied acute complaints of headache, dizziness, chest pain, SOB, and abd pain. She was cooperative with exam but kept her eyes closed for most of it because she said the light bothered her. Patient tolerated breakfast. She is due to be transferred out of MICU to [facility]. Objective - Vital Signs/Intake and Output Vital Signs (last 24 hours): Temp Pulse Resp BP Pulse Ox 97 F L 85 19 159/71 H 98 07/20/17 16:30 07/21/17 06:00 07/21/17 02:10 07/21/17 05:05 07/21/17 02:10 Intake and Output: 07/21/17 07/21/17 06:59 18:59 Intake Total 200 Output Total 800 Balance -600 - Medications Medications: Current Medications Acetaminophen (Tylenol 325mg Tab) 650 mg PO Q4H PRN PRN Reason: pain fever Last Admin: 07/21/17 04:57 Dose: 650 mg Aspirin (Aspirin Chewable) 81 mg PO DAILY [facility] Last Admin: 07/20/17 20:01 Dose: 81 mg Atorvastatin Calcium (Lipitor) 40 mg PO DIN [facility] Last Admin: 07/20/17 19:08 Dose: Not Given Carvedilol (Coreg) 12.5 mg PO Q12H [facility] Last Admin: 07/20/17 20:01 Dose: 12.5 mg Clopidogrel Bisulfate (Plavix) 75 mg PO DAILY [facility] Last Admin: 07/20/17 20:01 Dose: 75 mg Famotidine (Pepcid) 20 mg PO HS [facility] Last Admin: 07/20/17 21:21 Dose: 20 mg Ferrous Sulfate (Feosol) 324 mg PO BID [facility] Last Admin: 07/20/17 10:00 Dose: Not Given Hydralazine HCl (Apresoline) 10 mg IVP Q6 PRN PRN Reason: SBP >160 DBP>90 Last Admin: 07/21/17 04:58 Dose: 10 mg Meropenem 500 mg/ Sodium (Chloride) 50 mls @ 100 mls/hr IVPB Q12 [facility] PRN Reason: Protocol Last Admin: 07/20/17 21:21 Dose: 100 mls/hr Insulin Human Regular (Humulin R Low) 0 units SC ACHS [facility] PRN Reason: Protocol Last Admin: 07/20/17 22:00 Dose: Not Given Insulin Degludec [ Tresiba Flextouch U- 200] 30 unit SC HS [facility] Last Admin: 07/18/17 22:31 Dose: Not Given Pioglitazone HCl (Actos) 45 mg PO DAILY [facility] Propranolol HCl (Inderal) 10 mg PO Q8 [facility] Last Admin: 07/21/17 05:05 Dose: 10 mg Sitagliptin Phosphate (Januvia) 25 mg PO DAILY [facility] Last Admin: 07/19/17 10:29 Dose: 25 mg - Labs Labs: 07/21/17 06:00 07/20/17 06:00 PT 15.1 SECONDS (9.4-12.5) H 07/20/17 09:55 INR 1.31 (0.93-1.08) H 07/20/17 09:55 APTT 37.7 Seconds (25.1-36.5) H 07/20/17 09:55 - Constitutional Appears: Non-toxic, No Acute Distress - Head Exam Head Exam: ATRAUMATIC, NORMAL INSPECTION, NORMOCEPHALIC - Eye Exam Eye Exam: EOMI, Normal appearance, PERRL. absent: Conjunctival injection, Scleral icterus - ENT Exam ENT Exam: Mucous Membranes Moist - Neck Exam Neck Exam: Full ROM - Respiratory Exam Respiratory Exam: NORMAL BREATHING PATTERN. absent: Accessory Muscle Use, Respiratory Distress - Cardiovascular Exam Cardiovascular Exam: +S1, +S2 - GI/Abdominal Exam GI & Abdominal Exam: Soft - Rectal Exam Rectal Exam: Deferred - Extremities Exam Extremities Exam: absent: Pedal Edema - Neurological Exam Neurological Exam: Alert, Awake, CN II-XII Intact. absent: Oriented x3 ( oriented x2 to self and place ) Neuro motor strength exam: Left Upper Extremity: 5, Right Upper Extremity: 5, Left Lower Extremity: 5, Right Lower Extremity: 5 - Psychiatric Exam Psychiatric exam: Normal Affect, Normal Mood - Skin Skin Exam: Dry Assessment and Plan - Assessment and Plan (Free Text) Assessment: 71yo female PMHx HTN, DM, dementia, L foot ulceration s/p toe amputations was admitted originally on 07/15 at [facility] for poor responsiveneness and cellulitis and ulceration of her left foot. Neurology consulted for Code Stroke Plan: -patient is at baseline -CT head: negative -CTA head/neck: negative -MRI brain: limited motion degraded study. no evidence of acute intracranial hemorrhage or infarction. Minor chronic white matter and brainstem ischemic changes. moderate generalized volume loss. -unlikely to be a seizure or stroke -ammonia, prolactin and troponin all wnl -Echo unremarkable -f/u EEG -patient started on Seroquel 12.5mg po at night -fall precautions -seizure precautions -HoB above 30degrees -aspiration precautions Discussed with Dr. Lai Jett PGY2
--- NOTE | 2017-07-21 09:42 | CP.CCUPN ---
<Hieu Moss - Last Filed: 07/21/17 09:33> CCU Subjective - Physician Review Subjective (Free Text): 07/21/17 09:34 Hieu Moss D.O. PGY-2, Internal Medicine Resident, Critical Care Progress Note 71 year old female with a PMH of HTN, DM, dementia, left foot ulceration with recent toe amputations who presented to [facility] from [facility] for altered mental status and had a waking and waning course complicated by acute complete unresponsiveness with transfer to the ICU. Patient was seen and examined at bedside. About the same neurologically. Did well overnight with no issues. No acute complaints. Family member was here last night after she had improved and stated that this was patient's baseline. CCU Objective - Vital Signs / Intake & Output Vital Signs (Last 4 hours): Vital Signs Pulse 07/21/17 06:00 85 Intake and Output (Last 8hrs): Intake & Output 07/20/17 07/21/17 07/21/17 22:59 06:59 14:59 Intake Total 150 200 Output Total 1700 800 Balance -1550 -600 Weight 87.543 kg Intake: IV 50 Left Upper arm 50 Oral 150 150 Output: Urine 1700 800 Urethral ([place]) 1700 800 Other: # Bowel Movements 2 - Physical Exam Head: Positive for: Atraumatic, Normocephalic Pupils: Positive for: PERRL Extroacular Muscles: Positive for: EOMI Conjunctiva: Positive for: Normal Mouth: Positive for: Moist Mucous Membranes Neck: Positive for: Normal Range of Motion Respiratory/Chest: Positive for: Clear to Auscultation, Good Air Exchange. Negative for: Respiratory Distress, Accessory Muscle Use Cardiovascular: Positive for: Regular Rate and Rhythm, Normal S1, S2. Negative for: Murmurs Abdomen: Negative for: Tenderness, Distention, Peritoneal Signs Lower Extremity: Positive for: Other (Patient has amputated 3rd and 4th digits of left foot. No discharge noted.) Neurological: Positive for: GCS=15, CN II-XII Intact, Speech Normal, Other ( Patient awake, alert. No focal neurological deficits. ) Skin: Positive for: Warm, Dry, Normal Color. Negative for: Rashes Psychiatric: Positive for: Alert, Normal Insight, Normal Concentration - Medications Active Medications: Active Medications Generic Name Dose Route Start Last Admin Trade Name Freq PRN Reason Stop Dose Admin Acetaminophen 650 mg 07/15/17 02:07 07/21/17 04:57 Tylenol 325mg Tab PO 650 mg Q4H PRN Administration pain fever Aspirin 81 mg 07/15/17 10:00 07/20/17 20:01 Aspirin Chewable PO 81 mg DAILY NIDHI Administration Atorvastatin Calcium 40 mg 07/20/17 17:00 07/20/17 19:08 Lipitor PO Not Given DIN NIDHI Carvedilol 12.5 mg 07/19/17 19:44 07/20/17 20:01 Coreg PO 12.5 mg Q12H NIDHI Administration Clopidogrel Bisulfate 75 mg 07/15/17 10:00 07/20/17 20:01 Plavix PO 75 mg DAILY NIDHI Administration Famotidine 20 mg 07/20/17 14:16 07/20/17 21:21 Pepcid PO 20 mg HS [facility] Administration Ferrous Sulfate 324 mg 07/15/17 10:00 07/20/17 10:00 Feosol PO Not Given BID [facility] Hydralazine HCl 10 mg 07/20/17 11:20 07/21/17 04:58 Apresoline IVP 10 mg Q6 PRN Administration SBP >160 DBP>90 Meropenem 500 mg/ Sodium 50 mls @ 100 mls/hr 07/15/17 22:00 07/20/17 21:21 Chloride IVPB 100 mls/hr Q12 [facility] Administration Protocol Insulin Human Regular 0 units 07/15/17 07:30 07/20/17 22:00 Humulin R Low SC Not Given ACHS [facility] Protocol Insulin Degludec [ 30 unit 07/15/17 22:00 07/18/17 22:31 Tresiba Flextouch U- SC Not Given 200] HS [facility] Pioglitazone HCl 45 mg 07/15/17 10:00 Actos PO DAILY [facility] Propranolol HCl 10 mg 07/15/17 06:00 07/21/17 05:05 Inderal PO 10 mg Q8 [facility] Administration Sitagliptin Phosphate 25 mg 07/16/17 10:00 07/19/17 10:29 Januvia PO 25 mg DAILY [facility] Administration - Patient Studies Lab Studies: Lab Studies 07/21/17 07/21/17 07/20/17 Range/Units 07:49 06:00 21:47 WBC 10.0 (4.5-11.0) 10^3/ul RBC 3.76 (3.5-6.1) 10^6/uL Hgb 9.5 L (12.0-16.0) g/dL Hct 29.9 L (36.0-48.0) % MCV 79.5 L (80.0-105.0) fl MCH 25.3 (25.0-35.0) pg MCHC 31.8 (31.0-37.0) g/dl RDW 15.8 H (11.5-14.5) % Plt Count 314 (120.0-450.0) 10^3/uL MPV 9.9 (7.0-11.0) fl Gran % 76.1 H (50.0-68.0) % Lymph % (Auto) 11.8 L (22.0-35.0) % [place] % (Auto) 9.7 H (1.0-6.0) % Eos % (Auto) 2.1 (1.5-5.0) % Baso % (Auto) 0.3 (0.0-3.0) % Gran # 7.59 H (1.4-6.5) Lymph # (Auto) 1.2 (1.2-3.4) [place] # (Auto) 1.0 H (0.1-0.6) Eos # (Auto) 0.2 (0.0-0.7) Baso # (Auto) 0.03 (0.0-2.0) K/mm3 PT (9.4-12.5) SECONDS INR (0.93-1.08) APTT (25.1-36.5) Seconds pCO2 (35-45) mm/Hg pO2 (80-100) mm/Hg HCO3 (21-28) mmol/L ABG pH (7.35-7.45) ABG Total CO2 (22-28) mmol.L ABG O2 Saturation (95-98) % ABG Base Excess (-2.0-3.0) mmol/L ABG Potassium (3.6-5.2) mmol/L Sodium (132-148) mmol/L Chloride (98-107) mmol/L Glucose (65-105) mg/dl Lactate (0.7-2.1) mmol/L FiO2 % POC Glucose (mg/dL) 122 H 111 H (65-110) mg/dL Phosphorus (2.5-4.5) mg/dL Magnesium (1.7-2.2) mg/dL Ammonia (9-33) umol/L Troponin I ng/mL Free T4 (0.78-2.19) ng/dL TSH 3rd Generation (0.46-4.68) mIU/mL Prolactin (3.0-18.9) ng/mL Arterial Blood Potassium (3.6-5.2) mmol/L Ur Random Creatinine (20-320) mg/dL Urine Total Volume mg/dL Microalb/Creat Ratio (<30) Stool Occult Blood (NEGATIVE) 07/20/17 07/20/17 07/20/17 Range/Units 16:42 13:48 13:35 WBC (4.5-11.0) 10^3/ul RBC (3.5-6.1) 10^6/uL Hgb (12.0-16.0) g/dL Hct (36.0-48.0) % MCV (80.0-105.0) fl MCH (25.0-35.0) pg MCHC (31.0-37.0) g/dl RDW (11.5-14.5) % Plt Count (120.0-450.0) 10^3/uL MPV (7.0-11.0) fl Gran % (50.0-68.0) % Lymph % (Auto) (22.0-35.0) % [place] % (Auto) (1.0-6.0) % Eos % (Auto) (1.5-5.0) % Baso % (Auto) (0.0-3.0) % Gran # (1.4-6.5) Lymph # (Auto) (1.2-3.4) [place] # (Auto) (0.1-0.6) Eos # (Auto) (0.0-0.7) Baso # (Auto) (0.0-2.0) K/mm3 PT (9.4-12.5) SECONDS INR (0.93-1.08) APTT (25.1-36.5) Seconds pCO2 (35-45) mm/Hg pO2 (80-100) mm/Hg HCO3 (21-28) mmol/L ABG pH (7.35-7.45) ABG Total CO2 (22-28) mmol.L ABG O2 Saturation (95-98) % ABG Base Excess (-2.0-3.0) mmol/L ABG Potassium (3.6-5.2) mmol/L Sodium (132-148) mmol/L Chloride (98-107) mmol/L Glucose (65-105) mg/dl Lactate (0.7-2.1) mmol/L FiO2 % POC Glucose (mg/dL) 110 (65-110) mg/dL Phosphorus (2.5-4.5) mg/dL Magnesium (1.7-2.2) mg/dL Ammonia (9-33) umol/L Troponin I ng/mL Free T4 1.96 (0.78-2.19) ng/dL TSH 3rd Generation 3.42 (0.46-4.68) mIU/mL Prolactin (3.0-18.9) ng/mL Arterial Blood Potassium (3.6-5.2) mmol/L Ur Random Creatinine (20-320) mg/dL Urine Total Volume mg/dL Microalb/Creat Ratio (<30) Stool Occult Blood Negative (NEGATIVE) 07/20/17 07/20/17 07/20/17 Range/Units 13:35 13:29 12:23 WBC 10.0 D (4.5-11.0) 10^3/ul RBC 3.79 (3.5-6.1) 10^6/uL Hgb 9.7 L D (12.0-16.0) g/dL Hct 30.3 L (36.0-48.0) % MCV 79.9 L (80.0-105.0) fl MCH 25.6 (25.0-35.0) pg MCHC 32.0 (31.0-37.0) g/dl RDW 15.7 H (11.5-14.5) % Plt Count 316 (120.0-450.0) 10^3/uL MPV 9.7 (7.0-11.0) fl Gran % (50.0-68.0) % Lymph % (Auto) (22.0-35.0) % [place] % (Auto) (1.0-6.0) % Eos % (Auto) (1.5-5.0) % Baso % (Auto) (0.0-3.0) % Gran # (1.4-6.5) Lymph # (Auto) (1.2-3.4) [place] # (Auto) (0.1-0.6) Eos # (Auto) (0.0-0.7) Baso # (Auto) (0.0-2.0) K/mm3 PT (9.4-12.5) SECONDS INR (0.93-1.08) APTT (25.1-36.5) Seconds pCO2 (35-45) mm/Hg pO2 (80-100) mm/Hg HCO3 (21-28) mmol/L ABG pH (7.35-7.45) ABG Total CO2 (22-28) mmol.L ABG O2 Saturation (95-98) % ABG Base Excess (-2.0-3.0) mmol/L ABG Potassium (3.6-5.2) mmol/L Sodium (132-148) mmol/L Chloride (98-107) mmol/L Glucose (65-105) mg/dl Lactate (0.7-2.1) mmol/L FiO2 % POC Glucose (mg/dL) 94 (65-110) mg/dL Phosphorus (2.5-4.5) mg/dL Magnesium (1.7-2.2) mg/dL Ammonia < 9 L (9-33) umol/L Troponin I ng/mL Free T4 (0.78-2.19) ng/dL TSH 3rd Generation (0.46-4.68) mIU/mL Prolactin (3.0-18.9) ng/mL Arterial Blood Potassium (3.6-5.2) mmol/L Ur Random Creatinine (20-320) mg/dL Urine Total Volume mg/dL Microalb/Creat Ratio (<30) Stool Occult Blood (NEGATIVE) 07/20/17 07/20/17 07/20/17 Range/Units 10:09 10:08 10:00 WBC (4.5-11.0) 10^3/ul RBC (3.5-6.1) 10^6/uL Hgb (12.0-16.0) g/dL Hct (36.0-48.0) % MCV (80.0-105.0) fl MCH (25.0-35.0) pg MCHC (31.0-37.0) g/dl RDW (11.5-14.5) % Plt Count (120.0-450.0) 10^3/uL MPV (7.0-11.0) fl Gran % (50.0-68.0) % Lymph % (Auto) (22.0-35.0) % [place] % (Auto) (1.0-6.0) % Eos % (Auto) (1.5-5.0) % Baso % (Auto) (0.0-3.0) % Gran # (1.4-6.5) Lymph # (Auto) (1.2-3.4) [place] # (Auto) (0.1-0.6) Eos # (Auto) (0.0-0.7) Baso # (Auto) (0.0-2.0) K/mm3 PT (9.4-12.5) SECONDS INR (0.93-1.08) APTT (25.1-36.5) Seconds pCO2 36 (35-45) mm/Hg pO2 65.0 L (80-100) mm/Hg HCO3 25.0 (21-28) mmol/L ABG pH 7.45 (7.35-7.45) ABG Total CO2 26.1 (22-28) mmol.L ABG O2 Saturation 96.6 (95-98) % ABG Base Excess 1.3 (-2.0-3.0) mmol/L ABG Potassium 3.4 L (3.6-5.2) mmol/L Sodium 141.0 (132-148) mmol/L Chloride 110.0 H (98-107) mmol/L Glucose 101 (65-105) mg/dl Lactate 0.5 L (0.7-2.1) mmol/L FiO2 32.0 % POC Glucose (mg/dL) 90 (65-110) mg/dL Phosphorus 3.9 (2.5-4.5) mg/dL Magnesium 1.7 (1.7-2.2) mg/dL Ammonia (9-33) umol/L Troponin I ng/mL Free T4 (0.78-2.19) ng/dL TSH 3rd Generation (0.46-4.68) mIU/mL Prolactin (3.0-18.9) ng/mL Arterial Blood Potassium 3.4 L (3.6-5.2) mmol/L Ur Random Creatinine (20-320) mg/dL Urine Total Volume mg/dL Microalb/Creat Ratio (<30) Stool Occult Blood (NEGATIVE) 07/20/17 07/20/17 07/18/17 Range/Units 09:55 09:55 22:13 WBC (4.5-11.0) 10^3/ul RBC (3.5-6.1) 10^6/uL Hgb (12.0-16.0) g/dL Hct (36.0-48.0) % MCV (80.0-105.0) fl MCH (25.0-35.0) pg MCHC (31.0-37.0) g/dl RDW (11.5-14.5) % Plt Count (120.0-450.0) 10^3/uL MPV (7.0-11.0) fl Gran % (50.0-68.0) % Lymph % (Auto) (22.0-35.0) % [place] % (Auto) (1.0-6.0) % Eos % (Auto) (1.5-5.0) % Baso % (Auto) (0.0-3.0) % Gran # (1.4-6.5) Lymph # (Auto) (1.2-3.4) [place] # (Auto) (0.1-0.6) Eos # (Auto) (0.0-0.7) Baso # (Auto) (0.0-2.0) K/mm3 PT 15.1 H (9.4-12.5) SECONDS INR 1.31 H (0.93-1.08) APTT 37.7 H (25.1-36.5) Seconds pCO2 (35-45) mm/Hg pO2 (80-100) mm/Hg HCO3 (21-28) mmol/L ABG pH (7.35-7.45) ABG Total CO2 (22-28) mmol.L ABG O2 Saturation (95-98) % ABG Base Excess (-2.0-3.0) mmol/L ABG Potassium (3.6-5.2) mmol/L Sodium (132-148) mmol/L Chloride (98-107) mmol/L Glucose (65-105) mg/dl Lactate (0.7-2.1) mmol/L FiO2 % POC Glucose (mg/dL) (65-110) mg/dL Phosphorus (2.5-4.5) mg/dL Magnesium (1.7-2.2) mg/dL Ammonia (9-33) umol/L Troponin I < 0.01 ng/mL Free T4 (0.78-2.19) ng/dL TSH 3rd Generation (0.46-4.68) mIU/mL Prolactin 7.7 (3.0-18.9) ng/mL Arterial Blood Potassium (3.6-5.2) mmol/L Ur Random Creatinine 102 (20-320) mg/dL Urine Total Volume 27.7 mg/dL Microalb/Creat Ratio 272 H (<30) Stool Occult Blood (NEGATIVE) Laboratory Results - last 24 hr 07/18/17 07/20/17 07/20/17 22:13 09:55 09:55 WBC RBC Hgb Hct MCV MCH MCHC RDW Plt Count MPV Gran % Lymph % (Auto) [place] % (Auto) Eos % (Auto) Baso % (Auto) Gran # Lymph # (Auto) [place] # (Auto) Eos # (Auto) Baso # (Auto) PT 15.1 H INR 1.31 H APTT 37.7 H pCO2 pO2 HCO3 ABG pH ABG Total CO2 ABG O2 Saturation ABG Base Excess ABG Potassium Sodium Chloride Glucose Lactate FiO2 POC Glucose (mg/dL) Phosphorus Magnesium Ammonia Troponin I < 0.01 Free T4 TSH 3rd Generation Prolactin 7.7 Arterial Blood Potassium Ur Random Creatinine 102 Urine Total Volume 27.7 Microalb/Creat Ratio 272 H Stool Occult Blood 07/20/17 07/20/17 07/20/17 10:00 10:08 10:09 WBC RBC Hgb Hct MCV MCH MCHC RDW Plt Count MPV Gran % Lymph % (Auto) [place] % (Auto) Eos % (Auto) Baso % (Auto) Gran # Lymph # (Auto) [place] # (Auto) Eos # (Auto) Baso # (Auto) PT INR APTT pCO2 36 pO2 65.0 L HCO3 25.0 ABG pH 7.45 ABG Total CO2 26.1 ABG O2 Saturation 96.6 ABG Base Excess 1.3 ABG Potassium 3.4 L Sodium 141.0 Chloride 110.0 H Glucose 101 Lactate 0.5 L FiO2 32.0 POC Glucose (mg/dL) 90 Phosphorus 3.9 Magnesium 1.7 Ammonia Troponin I Free T4 TSH 3rd Generation Prolactin Arterial Blood Potassium 3.4 L Ur Random Creatinine Urine Total Volume Microalb/Creat Ratio Stool Occult Blood 07/20/17 07/20/17 07/20/17 12:23 13:29 13:35 WBC 10.0 D RBC 3.79 Hgb 9.7 L D Hct 30.3 L MCV 79.9 L MCH 25.6 MCHC 32.0 RDW 15.7 H Plt Count 316 MPV 9.7 Gran % Lymph % (Auto) [place] % (Auto) Eos % (Auto) Baso % (Auto) Gran # Lymph # (Auto) [place] # (Auto) Eos # (Auto) Baso # (Auto) PT INR APTT pCO2 pO2 HCO3 ABG pH ABG Total CO2 ABG O2 Saturation ABG Base Excess ABG Potassium Sodium Chloride Glucose Lactate FiO2 POC Glucose (mg/dL) 94 Phosphorus Magnesium Ammonia < 9 L Troponin I Free T4 TSH 3rd Generation Prolactin Arterial Blood Potassium Ur Random Creatinine Urine Total Volume Microalb/Creat Ratio Stool Occult Blood 07/20/17 07/20/17 07/20/17 13:35 13:48 16:42 WBC RBC Hgb Hct MCV MCH MCHC RDW Plt Count MPV Gran % Lymph % (Auto) [place] % (Auto) Eos % (Auto) Baso % (Auto) Gran # Lymph # (Auto) [place] # (Auto) Eos # (Auto) Baso # (Auto) PT INR APTT pCO2 pO2 HCO3 ABG pH ABG Total CO2 ABG O2 Saturation ABG Base Excess ABG Potassium Sodium Chloride Glucose Lactate FiO2 POC Glucose (mg/dL) 110 Phosphorus Magnesium Ammonia Troponin I Free T4 1.96 TSH 3rd Generation 3.42 Prolactin Arterial Blood Potassium Ur Random Creatinine Urine Total Volume Microalb/Creat Ratio Stool Occult Blood Negative 07/20/17 07/21/17 07/21/17 21:47 06:00 07:49 WBC 10.0 RBC 3.76 Hgb 9.5 L Hct 29.9 L MCV 79.5 L MCH 25.3 MCHC 31.8 RDW 15.8 H Plt Count 314 MPV 9.9 Gran % 76.1 H Lymph % (Auto) 11.8 L [place] % (Auto) 9.7 H Eos % (Auto) 2.1 Baso % (Auto) 0.3 Gran # 7.59 H Lymph # (Auto) 1.2 [place] # (Auto) 1.0 H Eos # (Auto) 0.2 Baso # (Auto) 0.03 PT INR APTT pCO2 pO2 HCO3 ABG pH ABG Total CO2 ABG O2 Saturation ABG Base Excess ABG Potassium Sodium Chloride Glucose Lactate FiO2 POC Glucose (mg/dL) 111 H 122 H Phosphorus Magnesium Ammonia Troponin I Free T4 TSH 3rd Generation Prolactin Arterial Blood Potassium Ur Random Creatinine Urine Total Volume Microalb/Creat Ratio Stool Occult Blood Fingerstick Blood Sugar Results: 111 Assessment/Plan - Assessment and Plan (Free Text) Assessment: 71 year old female with a PMH of HTN, DM, dementia, left foot ulceration with recent toe amputations who presented to [facility] from [facility] for altered mental status and had a waking and waning course complicated by acute complete unresponsiveness with transfer to the ICU, now resolved and back at her baseline. Plan: Neurologic Neurologically back at her baseline After discussion of presentation with neurologist this was likely acute delirium vs psychogenic in etiology All imaging negative including MRI There was no CO2 narcosis, ammonia was wnl, thyroid panel wnl, troponin was negative, she was not hypoglycemic, and she had resolution of symptoms within hours to baseline without intervention Neuro following Cardiovascular Cont home meds Cont hydralazine PRN Cont home asa/plavix Maintain normotension Pulmonary Maintaing sats well Cont PRN NC O2 Gastrointestinal On dysphagia diet, tolerating Renal/Electrolytes SHANTEL from [facility] per nephrology who has been following Avoid nephrotoxic drugs Maintain fluid balance Monitor IxOs Daily weights Hematology Anemia likely multifactorial S/p 2U PRBCs Hgb stable HD stable No active bleeding Endocrinology Diabetic, will maintain RISS and accuchecks Glucose control per NICE-SUGAR trial Hold oral hypoglycemics while in the hospital Infectious Disease Known ulceration of left foot, podiatry following On meropenem ID following GI ppx: famotidine Dispo: improved for transfer back to telemetry Patient was seen and examined and case was discussed at length with attending physician. - Date & Time Date: 07/21/17 Time: 07:00 <Germain Galdamez - Last Filed: 07/21/17 12:08> CCU Objective - Vital Signs / Intake & Output Vital Signs (Last 4 hours): Vital Signs Pulse BP 07/21/17 09:59 86 151/70 H Intake and Output (Last 8hrs): Intake & Output 07/20/17 07/21/17 07/21/17 22:59 06:59 14:59 Intake Total 150 200 Output Total 1700 800 Balance -1550 -600 Weight 193 lb Intake: IV 50 Left Upper arm 50 Oral 150 150 Output: Urine 1700 800 Urethral ([place]) 1700 800 Other: # Bowel Movements 2 - Medications Active Medications: Active Medications Generic Name Dose Route Start Last Admin Trade Name Freq PRN Reason Stop Dose Admin Acetaminophen 650 mg 07/15/17 02:07 07/21/17 04:57 Tylenol 325mg Tab PO 650 mg Q4H PRN Administration pain fever Aspirin 81 mg 07/15/17 10:00 07/21/17 09:58 Aspirin Chewable PO 81 mg DAILY NIDHI Administration Atorvastatin Calcium 40 mg 07/20/17 17:00 07/20/17 19:08 Lipitor PO Not Given DIN NIDHI Carvedilol 12.5 mg 07/19/17 19:44 07/21/17 09:59 Coreg PO 12.5 mg Q12H NIDHI Administration Clopidogrel Bisulfate 75 mg 07/15/17 10:00 07/21/17 09:58 Plavix PO 75 mg DAILY NIDHI Administration Famotidine 20 mg 07/20/17 14:16 07/20/17 21:21 Pepcid PO 20 mg HS NIDHI Administration Ferrous Sulfate 324 mg 07/15/17 10:00 07/21/17 09:59 Feosol PO 324 mg BID NIDHI Administration Hydralazine HCl 10 mg 07/20/17 11:20 07/21/17 04:58 Apresoline IVP 10 mg Q6 PRN Administration SBP >160 DBP>90 Meropenem 500 mg/ Sodium 50 mls @ 100 mls/hr 07/15/17 22:00 07/21/17 09:59 Chloride IVPB 100 mls/hr Q12 NIDHI Administration Protocol Insulin Human Regular 0 units 07/15/17 07:30 07/21/17 07:30 Humulin R Low SC Not Given ACHS [facility] Protocol Insulin Degludec [ 30 unit 07/15/17 22:00 07/18/17 22:31 Tresiba Flextouch U- SC Not Given 200] HS [facility] Pioglitazone HCl 45 mg 07/15/17 10:00 Actos PO DAILY NIDHI Propranolol HCl 10 mg 07/15/17 06:00 07/21/17 05:05 Inderal PO 10 mg Q8 NIDHI Administration Quetiapine Fumarate 12.5 mg 07/21/17 18:00 Seroquel PO HS [facility] Protocol Sitagliptin Phosphate 25 mg 07/16/17 10:00 07/19/17 10:29 Januvia PO 25 mg DAILY NIDHI Administration - Patient Studies Lab Studies: Lab Studies 07/21/17 07/21/17 07/20/17 Range/Units 07:49 06:00 21:47 WBC 10.0 (4.5-11.0) 10^3/ul RBC 3.76 (3.5-6.1) 10^6/uL Hgb 9.5 L (12.0-16.0) g/dL Hct 29.9 L (36.0-48.0) % MCV 79.5 L (80.0-105.0) fl MCH 25.3 (25.0-35.0) pg MCHC 31.8 (31.0-37.0) g/dl RDW 15.8 H (11.5-14.5) % Plt Count 314 (120.0-450.0) 10^3/uL MPV 9.9 (7.0-11.0) fl Gran % 76.1 H (50.0-68.0) % Lymph % (Auto) 11.8 L (22.0-35.0) % [place] % (Auto) 9.7 H (1.0-6.0) % Eos % (Auto) 2.1 (1.5-5.0) % Baso % (Auto) 0.3 (0.0-3.0) % Gran # 7.59 H (1.4-6.5) Lymph # (Auto) 1.2 (1.2-3.4) [place] # (Auto) 1.0 H (0.1-0.6) Eos # (Auto) 0.2 (0.0-0.7) Baso # (Auto) 0.03 (0.0-2.0) K/mm3 POC Glucose (mg/dL) 122 H 111 H (65-110) mg/dL Ammonia (9-33) umol/L Free T4 (0.78-2.19) ng/dL TSH 3rd Generation (0.46-4.68) mIU/mL Prolactin (3.0-18.9) ng/mL Stool Occult Blood (NEGATIVE) 07/20/17 07/20/17 07/20/17 Range/Units 16:42 13:48 13:35 WBC (4.5-11.0) 10^3/ul RBC (3.5-6.1) 10^6/uL Hgb (12.0-16.0) g/dL Hct (36.0-48.0) % MCV (80.0-105.0) fl MCH (25.0-35.0) pg MCHC (31.0-37.0) g/dl RDW (11.5-14.5) % Plt Count (120.0-450.0) 10^3/uL MPV (7.0-11.0) fl Gran % (50.0-68.0) % Lymph % (Auto) (22.0-35.0) % [place] % (Auto) (1.0-6.0) % Eos % (Auto) (1.5-5.0) % Baso % (Auto) (0.0-3.0) % Gran # (1.4-6.5) Lymph # (Auto) (1.2-3.4) [place] # (Auto) (0.1-0.6) Eos # (Auto) (0.0-0.7) Baso # (Auto) (0.0-2.0) K/mm3 POC Glucose (mg/dL) 110 (65-110) mg/dL Ammonia (9-33) umol/L Free T4 1.96 (0.78-2.19) ng/dL TSH 3rd Generation 3.42 (0.46-4.68) mIU/mL Prolactin (3.0-18.9) ng/mL Stool Occult Blood Negative (NEGATIVE) 07/20/17 07/20/17 07/20/17 Range/Units 13:35 13:29 12:23 WBC 10.0 D (4.5-11.0) 10^3/ul RBC 3.79 (3.5-6.1) 10^6/uL Hgb 9.7 L D (12.0-16.0) g/dL Hct 30.3 L (36.0-48.0) % MCV 79.9 L (80.0-105.0) fl MCH 25.6 (25.0-35.0) pg MCHC 32.0 (31.0-37.0) g/dl RDW 15.7 H (11.5-14.5) % Plt Count 316 (120.0-450.0) 10^3/uL MPV 9.7 (7.0-11.0) fl Gran % (50.0-68.0) % Lymph % (Auto) (22.0-35.0) % [place] % (Auto) (1.0-6.0) % Eos % (Auto) (1.5-5.0) % Baso % (Auto) (0.0-3.0) % Gran # (1.4-6.5) Lymph # (Auto) (1.2-3.4) [place] # (Auto) (0.1-0.6) Eos # (Auto) (0.0-0.7) Baso # (Auto) (0.0-2.0) K/mm3 POC Glucose (mg/dL) 94 (65-110) mg/dL Ammonia < 9 L (9-33) umol/L Free T4 (0.78-2.19) ng/dL TSH 3rd Generation (0.46-4.68) mIU/mL Prolactin (3.0-18.9) ng/mL Stool Occult Blood (NEGATIVE) 07/20/17 Range/Units 09:55 WBC (4.5-11.0) 10^3/ul RBC (3.5-6.1) 10^6/uL Hgb (12.0-16.0) g/dL Hct (36.0-48.0) % MCV (80.0-105.0) fl MCH (25.0-35.0) pg MCHC (31.0-37.0) g/dl RDW (11.5-14.5) % Plt Count (120.0-450.0) 10^3/uL MPV (7.0-11.0) fl Gran % (50.0-68.0) % Lymph % (Auto) (22.0-35.0) % [place] % (Auto) (1.0-6.0) % Eos % (Auto) (1.5-5.0) % Baso % (Auto) (0.0-3.0) % Gran # (1.4-6.5) Lymph # (Auto) (1.2-3.4) [place] # (Auto) (0.1-0.6) Eos # (Auto) (0.0-0.7) Baso # (Auto) (0.0-2.0) K/mm3 POC Glucose (mg/dL) (65-110) mg/dL Ammonia (9-33) umol/L Free T4 (0.78-2.19) ng/dL TSH 3rd Generation (0.46-4.68) mIU/mL Prolactin 7.7 (3.0-18.9) ng/mL Stool Occult Blood (NEGATIVE) Laboratory Results - last 24 hr 07/20/17 07/20/17 07/20/17 09:55 12:23 13:29 WBC RBC Hgb Hct MCV MCH MCHC RDW Plt Count MPV Gran % Lymph % (Auto) [place] % (Auto) Eos % (Auto) Baso % (Auto) Gran # Lymph # (Auto) [place] # (Auto) Eos # (Auto) Baso # (Auto) POC Glucose (mg/dL) 94 Ammonia < 9 L Free T4 TSH 3rd Generation Prolactin 7.7 Stool Occult Blood 07/20/17 07/20/17 07/20/17 13:35 13:35 13:48 WBC 10.0 D RBC 3.79 Hgb 9.7 L D Hct 30.3 L MCV 79.9 L MCH 25.6 MCHC 32.0 RDW 15.7 H Plt Count 316 MPV 9.7 Gran % Lymph % (Auto) [place] % (Auto) Eos % (Auto) Baso % (Auto) Gran # Lymph # (Auto) [place] # (Auto) Eos # (Auto) Baso # (Auto) POC Glucose (mg/dL) Ammonia Free T4 1.96 TSH 3rd Generation 3.42 Prolactin Stool Occult Blood Negative 07/20/17 07/20/17 07/21/17 16:42 21:47 06:00 WBC 10.0 RBC 3.76 Hgb 9.5 L Hct 29.9 L MCV 79.5 L MCH 25.3 MCHC 31.8 RDW 15.8 H Plt Count 314 MPV 9.9 Gran % 76.1 H Lymph % (Auto) 11.8 L [place] % (Auto) 9.7 H Eos % (Auto) 2.1 Baso % (Auto) 0.3 Gran # 7.59 H Lymph # (Auto) 1.2 [place] # (Auto) 1.0 H Eos # (Auto) 0.2 Baso # (Auto) 0.03 POC Glucose (mg/dL) 110 111 H Ammonia Free T4 TSH 3rd Generation Prolactin Stool Occult Blood 07/21/17 07:49 WBC RBC Hgb Hct MCV MCH MCHC RDW Plt Count MPV Gran % Lymph % (Auto) [place] % (Auto) Eos % (Auto) Baso % (Auto) Gran # Lymph # (Auto) [place] # (Auto) Eos # (Auto) Baso # (Auto) POC Glucose (mg/dL) 122 H Ammonia Free T4 TSH 3rd Generation Prolactin Stool Occult Blood Assessment/Plan - Assessment and Plan (Free Text) Plan: Patient seen and examined on rounds with resident, agree with note with following additions/exceptions 71 year old female with a PMH of HTN, DM, dementia, left foot ulceration with recent toe amputations who presented to [facility] from [facility] for altered mental status. Initial CT head, neg, Brain MRI neg for acute pathological findings. Currently afebrile, HD stable, comfortable in NAD mental status back to baseline, doing well. BP control, FS control, HH monitoring, Abx as per ID. Stable, transfer to telemetry.
[2017-07-21] MEDS: Meropenem 500 MG in Sodium Chloride 0.9% 50 ML IVPB SCH ×2 (09:59→21:48)
[2017-07-21 12:51] LABS: ALB/GLOB RATIO 0.8 (1.1-1.8); CALCIUM 8.6 mg/dL (8.4-10.5)
--- NOTE | 2017-07-21 14:15 | CP.PCM.PN ---
<Myron Melendez - Last Filed: 07/21/17 14:09> Subjective - Date & Time of Evaluation Date of Evaluation: 07/21/17 Time of Evaluation: 12:00 - Subjective Subjective: Podiatry Progress Note- Dr. Anderson/Cassandra 71 y/o female seen and evaluated at bedside in the morning with attending Dr. Anderson. Patient is seen resting comfortably in chair, in NAD. Patient appears to be better today and conversing. Denies pain to the LE. Denies F/C/N/V/CP/ SOB. No new pedal complaints. Objective - Vital Signs/Intake and Output Vital Signs (last 24 hours): Temp Pulse Resp BP Pulse Ox 97 F L 90 19 159/80 H 98 07/20/17 16:30 07/21/17 13:25 07/21/17 02:10 07/21/17 13:25 07/21/17 02:10 Intake and Output: 07/21/17 07/21/17 06:59 18:59 Intake Total 200 Output Total 800 Balance -600 - Medications Medications: Current Medications Acetaminophen (Tylenol 325mg Tab) 650 mg PO Q4H PRN PRN Reason: pain fever Last Admin: 07/21/17 04:57 Dose: 650 mg Aspirin (Aspirin Chewable) 81 mg PO DAILY [facility] Last Admin: 07/21/17 09:58 Dose: 81 mg Atorvastatin Calcium (Lipitor) 40 mg PO DIN [facility] Last Admin: 07/20/17 19:08 Dose: Not Given Carvedilol (Coreg) 12.5 mg PO Q12H [facility] Last Admin: 07/21/17 09:59 Dose: 12.5 mg Clopidogrel Bisulfate (Plavix) 75 mg PO DAILY [facility] Last Admin: 07/21/17 09:58 Dose: 75 mg Famotidine (Pepcid) 20 mg PO HS [facility] Last Admin: 07/20/17 21:21 Dose: 20 mg Ferrous Sulfate (Feosol) 324 mg PO BID [facility] Last Admin: 07/21/17 09:59 Dose: 324 mg Hydralazine HCl (Apresoline) 10 mg IVP Q6 PRN PRN Reason: SBP >160 DBP>90 Last Admin: 07/21/17 04:58 Dose: 10 mg Meropenem 500 mg/ Sodium (Chloride) 50 mls @ 100 mls/hr IVPB Q12 [facility] PRN Reason: Protocol Last Admin: 07/21/17 09:59 Dose: 100 mls/hr Insulin Human Regular (Humulin R Low) 0 units SC ACHS [facility] PRN Reason: Protocol Last Admin: 07/21/17 11:30 Dose: Not Given Insulin Degludec [ Tresiba Flextouch U- 200] 30 unit SC HS [facility] Last Admin: 07/18/17 22:31 Dose: Not Given Pioglitazone HCl (Actos) 45 mg PO DAILY [facility] Propranolol HCl (Inderal) 10 mg PO Q8 [facility] Last Admin: 07/21/17 13:25 Dose: 10 mg Quetiapine Fumarate (Seroquel) 12.5 mg PO HS [facility] PRN Reason: Protocol Sitagliptin Phosphate (Januvia) 25 mg PO DAILY [facility] Last Admin: 07/19/17 10:29 Dose: 25 mg - Labs Labs: 07/21/17 06:00 07/21/17 12:00 PT 15.1 SECONDS (9.4-12.5) H 07/20/17 09:55 INR 1.31 (0.93-1.08) H 07/20/17 09:55 APTT 37.7 Seconds (25.1-36.5) H 07/20/17 09:55 - Constitutional Appears: Well, Non-toxic, No Acute Distress - Extremities Exam Extremities Exam: absent: Calf Tenderness Additional comments: Left lower extremity focused exam: Vasc: DP/PT pulses palpable 1/4. Temperature gradient warm to cool. CFT < 3 sec x 3 digits. Mild pedal edema noted to lateral foot Derm: Open ulceration measuring 7 cm x 3 cm x 0.6cm to lateral forefoot with beefy red granular wound base. Maceration to lukas wound noted to be resolved. Serous drainage noted to the dressing, no malodor, no tunneling or undermining present Neuro: Protective sensation absent, gross sensation diminished Ortho: No tenderness to palpation of lateral forefoot ulceration - Psychiatric Exam Psychiatric exam: Normal Affect, Normal Mood Assessment and Plan - Assessment and Plan (Free Text) Assessment: 71 y/o diabetic female with lateral left foot full thickness ulceration Plan: Patient seen and evaluated at bedside Discussed with attending Dr. Anderson X-rays of L foot (-) for any acute osseous changes/acute OM MRI of L foot ordered-5th metatarsal OM Cleansed ulceration with wound cleanser, followed byu peroxide, followed by saline solution. Dressed ulceration with xeroform, DSD, ABD, and kerlix Ordered Bactroban, will be applied with xeroform application Continue peroxide until Tuesday. Arterial duplex studies pending Patient ulceration cleansed with saline solution and dressed with Maxorb and Optifoam Wound culture + for Acinetobacter Baumanii Continue IV abx per ID - Meropenem Continue Multipodus boots at all times in bed Podiatry will continue to follow while in house <Eboni Anderson - Last Filed: 07/31/17 16:18> Objective - Vital Signs/Intake and Output Vital Signs (last 24 hours): Temp Pulse Resp BP Pulse Ox 98.1 F 77 18 148/71 95 07/31/17 06:00 07/31/17 14:35 07/31/17 06:00 07/31/17 14:35 07/31/17 06:00 Intake and Output: 07/31/17 07/31/17 06:59 18:59 Intake Total 120 480 Balance 120 480 - Medications Medications: Current Medications Acetaminophen (Tylenol 325mg Tab) 650 mg PO Q4H PRN PRN Reason: pain fever Last Admin: 07/27/17 02:58 Dose: 650 mg Albuterol/Ipratropium (Duoneb 3 Mg/0.5 Mg (3 Ml) Ud) 3 ml IH [id number] [facility] Last Admin: 07/31/17 15:22 Dose: 3 ml Amlodipine Besylate (Norvasc) 10 mg PO DAILY [facility] Aspirin (Aspirin Chewable) 81 mg PO DAILY [facility] Last Admin: 07/31/17 10:02 Dose: 81 mg Atorvastatin Calcium (Lipitor) 40 mg PO DIN [facility] Last Admin: 07/30/17 17:18 Dose: 40 mg Carvedilol (Coreg) 25 mg PO Q12 [facility] Last Admin: 07/31/17 12:38 Dose: 25 mg Clopidogrel Bisulfate (Plavix) 75 mg PO DAILY [facility] Last Admin: 07/31/17 10:02 Dose: 75 mg Clotrimazole (Lotrimin 1%) 1 gm TOP DAILY [facility] Last Admin: 07/31/17 10:08 Dose: 1 applic Collagenase (Santyl) 1 gm TOP DAILY [facility] Last Admin: 07/31/17 10:07 Dose: 1 applic Dextrose (Dextrose 50% Inj) 50 ml IVP PRN PRN PRN Reason: PRN For blood glucose below 80 Famotidine (Pepcid) 20 mg PO HS [facility] Last Admin: 07/30/17 21:23 Dose: 20 mg Ferrous Sulfate (Feosol) 324 mg PO BID [facility] Last Admin: 07/31/17 10:02 Dose: 324 mg Furosemide (Lasix) 20 mg PO DAILY [facility] Last Admin: 07/31/17 10:01 Dose: 20 mg Hydralazine HCl (Apresoline) 10 mg IVP Q6 PRN PRN Reason: SBP >160 DBP>90 Last Admin: 07/30/17 14:24 Dose: 10 mg Hydralazine HCl (Apresoline) 75 mg PO QID [facility] Last Admin: 07/31/17 14:35 Dose: 75 mg Micafungin Sodium 100 mg/ (Sodium Chloride) 100 mls @ 100 mls/hr IV DAILY [facility] PRN Reason: Protocol Last Admin: 07/31/17 10:02 Dose: 100 mls/hr Insulin Detemir (Levemir) 10 unit SC HS [facility] Last Admin: 07/30/17 23:30 Dose: 10 unit Insulin Human Regular (Humulin R Low) 0 units SC ACHS [facility] PRN Reason: Protocol Last Admin: 07/31/17 12:37 Dose: 1 units Mupirocin (Bactroban Ointment) 1 gm TOP BID [facility] Last Admin: 07/31/17 10:08 Dose: 1 appl Nystatin (Nystop Topical Powder) 1 gm TOP DAILY [facility] Last Admin: 07/31/17 10:07 Dose: 1 applic - Labs Labs: 07/31/17 12:10 07/31/17 12:10 PT 15.1 SECONDS (9.4-12.5) H 07/20/17 09:55 INR 1.31 (0.93-1.08) H 07/20/17 09:55 APTT 37.7 Seconds (25.1-36.5) H 07/20/17 09:55 Attending/Attestation - Attestation I have personally seen and examined this patient.: Yes I have fully participated in the care of the patient.: Yes I have reviewed all pertinent clinical information, including history, physical exam and plan: Yes
--- NOTE | 2017-07-21 15:53 | PN ---
DATE: 07/20/2017 SUBJECTIVE: The patient was seen and examined in the bedside on 07/20/2017, looking comfortable. No nausea, vomiting or diarrhea. No hematuria or hematochezia. No swelling of the legs. No chest pain. No palpitation. No headaches. No dizziness. There was rapid response; early in the morning, patient was unresponsive and after couple of hours, started verbalizing, but I saw patient in the unit. She was responding. PHYSICAL EXAMINATION: VITAL SIGNS: Temperature 98, pulse 80 , blood pressure 170/100, respiratory rate 18 . HEENT: Head normocephalic, atraumatic. Eyes PERRLA. Extraocular muscles intact. Conjunctivae clear. Nose patent. Mucous membrane moist. NECK: Supple. No carotid bruit. No JVD or thyromegaly. CHEST: Bilaterally symmetrical. HEART: S1 and S2 positive. LUNGS: Clear to auscultation. ABDOMEN: Soft. Bowel sounds positive. No organomegaly. EXTREMITIES: No edema. No cyanosis. NEUROLOGIC: Patient is not able to give complete neurological examination. MEDICATIONS: Aspirin, atorvastatin, Coreg, Plavix, Pepcid, iron, hydralazine, insulin, Actos, Inderal and Januvia. LABORATORY DATA: White blood cell is 10, hemoglobin 9.7, hematocrit 38.3, platelets 316. Sodium 147, potassium 3.6, BUN 20, creatinine 2.6, glucose 95. ASSESSMENT AND PLAN: Ms. Terry Abbott is a 71-year-old lady with anemia, hyperchloremia, renal insufficiency, cellulitis and abscess of the foot. MRI shows osteomyelitis, on meropenem, continue that. Hypertension, blood pressure remains elevated, worsened by not being able to take p.o. medications. Continue hydralazine every 6 hours. We will continue that. 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 Proteinuria, handled by Dr. Cosby. Patient is legally blind. Status post rapid response. Dementia, diabetes mellitus. Left foot ulceration with recent toe amputation. Altered mental status. Transfer patient to ICU because of unresponsiveness while on the floor. MRI of the brain is reviewed by me. CT head negative, maybe it is metabolic in nature. Anemia, looks like multifactorial. Stool occult positive. We will monitor H and H. Infectious Disease is on the case. The patient was seen and examined at bedside on 07/20/2017. Getting palliative treatment. Repeat labs. We will follow up. Deisy Gilman MD [facility]
[2017-07-21] MEDS: Mupirocin 2% Ointment 15 GM TUBE TOP SCH (17:51)
--- NOTE | 2017-07-21 19:16 | CP.PCM.PN ---
Subjective - Date & Time of Evaluation Date of Evaluation: 07/21/17 Time of Evaluation: 16:30 - Subjective Subjective: Infectious Disease Follow Up: July 21, 2017 71 yo AA female sent from [facility] for poor responsiveness. 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 History of E. coli and enterococcus. The E. coli is ESBL+. The patient can give little history of her own. She is currently awake and alert now. The patient was on IV Vancomycin at [place]. Unclear if she was still on Meropenem there. Renal insufficiency. The patient had normal creatinine in June 2017. Still elevated creatinine. Unclear if this is secondary to several factors such as dehydration, poor appetite, and use of Vancomycin. Vancomycin remains high at 35.4 but she did get a dose in hospital early in the hospital course. At best the patient is AAO x 1. The patient has very uneven behavior... I'm not sure if this is her normal vs. AMS. Wound cultures showing gram negative rods identified as MDR Acinetobacter. Urine with yeast. Patient found unresponsive yesterday AM. The patient had rapid response and Code Stroke called. Found to be severely hypertensive yesterday AM. Taken to ICU for further care. The patient has improved since transfer to ICU and is currently awake and alert. Overnight no new issues. Patient is more or less at baseline mental status. Objective - Vital Signs/Intake and Output Vital Signs (last 24 hours): Temp Pulse Resp BP Pulse Ox 98.0 F 86 27 H 158/76 H 96 07/21/17 16:00 07/21/17 18:08 07/21/17 18:07 07/21/17 18:00 07/21/17 16:00 Intake and Output: 07/21/17 07/22/17 18:59 06:59 Intake Total 580 Output Total 350 Balance 230 - Medications Medications: Current Medications Acetaminophen (Tylenol 325mg Tab) 650 mg PO Q4H PRN PRN Reason: pain fever Last Admin: 07/21/17 04:57 Dose: 650 mg Aspirin (Aspirin Chewable) 81 mg PO DAILY [facility] Last Admin: 07/21/17 09:58 Dose: 81 mg Atorvastatin Calcium (Lipitor) 40 mg PO DIN [facility] Last Admin: 07/21/17 17:48 Dose: 40 mg Carvedilol (Coreg) 12.5 mg PO Q12H [facility] Last Admin: 07/21/17 09:59 Dose: 12.5 mg Clopidogrel Bisulfate (Plavix) 75 mg PO DAILY [facility] Last Admin: 07/21/17 09:58 Dose: 75 mg Famotidine (Pepcid) 20 mg PO HS [facility] Last Admin: 07/20/17 21:21 Dose: 20 mg Ferrous Sulfate (Feosol) 324 mg PO BID [facility] Last Admin: 07/21/17 17:48 Dose: 324 mg Hydralazine HCl (Apresoline) 10 mg IVP Q6 PRN PRN Reason: SBP >160 DBP>90 Last Admin: 07/21/17 04:58 Dose: 10 mg Meropenem 500 mg/ Sodium (Chloride) 50 mls @ 100 mls/hr IVPB Q12 [facility] PRN Reason: Protocol Last Admin: 07/21/17 09:59 Dose: 100 mls/hr Insulin Human Regular (Humulin R Low) 0 units SC ACHS [facility] PRN Reason: Protocol Last Admin: 07/21/17 16:30 Dose: Not Given Mupirocin (Bactroban Ointment) 1 gm TOP BID [facility] Last Admin: 07/21/17 17:51 Dose: Not Given Insulin Degludec [ Tresiba Flextouch U- 200] 30 unit SC [facility] Last Admin: 07/18/17 22:31 Dose: Not Given Pioglitazone HCl (Actos) 45 mg PO DAILY [facility] Propranolol HCl (Inderal) 10 mg PO Q8 [facility] Last Admin: 07/21/17 13:25 Dose: 10 mg Quetiapine Fumarate (Seroquel) 12.5 mg PO [facility] PRN Reason: Protocol Last Admin: 07/21/17 17:48 Dose: 12.5 mg Sitagliptin Phosphate (Januvia) 25 mg PO DAILY [facility] Last Admin: 07/19/17 10:29 Dose: 25 mg - Labs Labs: 07/21/17 06:00 07/21/17 12:00 PT 15.1 SECONDS (9.4-12.5) H 07/20/17 09:55 INR 1.31 (0.93-1.08) H 07/20/17 09:55 APTT 37.7 Seconds (25.1-36.5) H 07/20/17 09:55 - Constitutional Appears: Non-toxic, No Acute Distress, Chronically Ill - Head Exam Head Exam: ATRAUMATIC, NORMOCEPHALIC - Eye Exam Eye Exam: EOMI, PERRL Pupil Exam: NORMAL ACCOMODATION, PERRL - ENT Exam ENT Exam: Mucous Membranes Moist, Normal External Ear Exam, TM's Normal Bilaterally - Neck Exam Neck Exam: Full ROM, Normal Inspection - Respiratory Exam Respiratory Exam: Clear to Ausculation Bilateral, NORMAL BREATHING PATTERN. absent: Rales, Rhonchi, Wheezes - Cardiovascular Exam Cardiovascular Exam: REGULAR RHYTHM, RRR, +S1, +S2 - GI/Abdominal Exam GI & Abdominal Exam: Soft, Normal Bowel Sounds. absent: Distended, Tenderness - Extremities Exam Additional comments: Left foot with 3rd and 4th toe amputations. Lateral left foot ulceration full thickness. - Neurological Exam Neurological Exam: Alert, Awake, CN II-XII Intact, Oriented x3 - Psychiatric Exam Psychiatric exam: Normal Affect, Normal Mood - Skin Skin Exam: Intact, Normal Color Assessment and Plan - Assessment and Plan (Free Text) Assessment: 71 yo AA female with altered renal function and was poorly responsive at [facility]. The patient was on Vancomycin for antibiotic treatment. Will restart Meropenem and check Vancomycin levels fist given worsening creatinine levels. Local wound care. Still with decreased renal function despite normal values in the early part of June 2017. Likely multiple factors contributing to this including dehydration , poor oral appetite, and use of Vancomycin antibiotics. Unclear if the renal function will recover at this point... it is too early to tell. Recheck creatinine tomorrow. May need to consider Zyvox over Vancomycin for treatment given renal function. Check Vancomycin level tomorrow again. Level currently is 35.4 taken about 24 hours after the last administration of IV Vancomycin. Possible consideration of Zyvox use after Vancomycin levels normalize and if culture still suggest Enterococcus infection. Podiatry has recultured with foot. Will continue with renally dosed meropenem for now. Gram negative rods in wound cultures of the foot identified as MDR Acinetobacter. Will check with lab regarding sensitivities to additional antibiotics. For now remains on meropenem. Brought to MICU after being found unresponsive. Severely hypertensive during rapid response. After a few hours in the MICU, the patient is now awake and alert. Continuing on meropenem. The patient has been afebrile and has had no leukocytosis. No new issues overnight. Thank you for allowing me to participate in the care of the patient, we will follow with you.
--- NOTE | 2017-07-21 21:14 | CP.PCM.PN ---
Subjective - Date & Time of Evaluation Date of Evaluation: 07/21/17 Time of Evaluation: 11:00 - Subjective Subjective: Patient tolerating diet, otherwise giving some vague complaints; Objective - Vital Signs/Intake and Output Vital Signs (last 24 hours): Temp Pulse Resp BP Pulse Ox 98.0 F 82 27 H 159/75 H 96 07/21/17 16:00 07/21/17 20:03 07/21/17 18:07 07/21/17 20:03 07/21/17 16:00 Intake and Output: 07/21/17 07/22/17 18:59 06:59 Intake Total 580 Output Total 350 Balance 230 - Medications Medications: Current Medications Acetaminophen (Tylenol 325mg Tab) 650 mg PO Q4H PRN PRN Reason: pain fever Last Admin: 07/21/17 04:57 Dose: 650 mg Aspirin (Aspirin Chewable) 81 mg PO DAILY [facility] Last Admin: 07/21/17 09:58 Dose: 81 mg Atorvastatin Calcium (Lipitor) 40 mg PO DIN [facility] Last Admin: 07/21/17 17:48 Dose: 40 mg Carvedilol (Coreg) 12.5 mg PO Q12H [facility] Last Admin: 07/21/17 20:03 Dose: 12.5 mg Clopidogrel Bisulfate (Plavix) 75 mg PO DAILY [facility] Last Admin: 07/21/17 09:58 Dose: 75 mg Famotidine (Pepcid) 20 mg PO HS [facility] Last Admin: 07/20/17 21:21 Dose: 20 mg Ferrous Sulfate (Feosol) 324 mg PO BID [facility] Last Admin: 07/21/17 17:48 Dose: 324 mg Hydralazine HCl (Apresoline) 10 mg IVP Q6 PRN PRN Reason: SBP >160 DBP>90 Last Admin: 07/21/17 04:58 Dose: 10 mg Meropenem 500 mg/ Sodium (Chloride) 50 mls @ 100 mls/hr IVPB Q12 [facility] PRN Reason: Protocol Last Admin: 07/21/17 09:59 Dose: 100 mls/hr Insulin Human Regular (Humulin R Low) 0 units SC ACHS [facility] PRN Reason: Protocol Last Admin: 07/21/17 16:30 Dose: Not Given Mupirocin (Bactroban Ointment) 1 gm TOP BID [facility] Last Admin: 07/21/17 17:51 Dose: Not Given Insulin Degludec [ Tresiba Flextouch U- 200] 30 unit SC HS [facility] Last Admin: 07/18/17 22:31 Dose: Not Given Pioglitazone HCl (Actos) 45 mg PO DAILY [facility] Propranolol HCl (Inderal) 10 mg PO Q8 [facility] Last Admin: 07/21/17 13:25 Dose: 10 mg Quetiapine Fumarate (Seroquel) 12.5 mg PO [facility] PRN Reason: Protocol Last Admin: 07/21/17 17:48 Dose: 12.5 mg Sitagliptin Phosphate (Januvia) 25 mg PO DAILY [facility] Last Admin: 07/19/17 10:29 Dose: 25 mg - Labs Labs: 07/21/17 06:00 07/21/17 12:00 PT 15.1 SECONDS (9.4-12.5) H 07/20/17 09:55 INR 1.31 (0.93-1.08) H 07/20/17 09:55 APTT 37.7 Seconds (25.1-36.5) H 07/20/17 09:55 - Constitutional Appears: Non-toxic, No Acute Distress - ENT Exam ENT Exam: Mucous Membranes Moist - Respiratory Exam Respiratory Exam: Clear to Ausculation Bilateral. absent: Respiratory Distress - Cardiovascular Exam Cardiovascular Exam: RRR, +S1, +S2 - GI/Abdominal Exam GI & Abdominal Exam: Soft. absent: Distended, Tenderness - Extremities Exam Additional comments: moderate b/l leg edema extending to thighs; - Neurological Exam Neurological Exam: Alert, Awake - Psychiatric Exam Psychiatric exam: absent: Normal Affect - Skin Skin Exam: Warm. absent: Cyanosis Assessment and Plan (1) Acute renal failure Assessment & Plan: ATN, now improving despite getting IV contrast yesterday; stable lytes; continue to monitor; avoid nephrotoxic agents (NSAIDS, phosphate enema); Status: Acute (2) Proteinuria Assessment & Plan: Mild, can be seen in ATN, awaiting total protein/creat level; Status: Acute (3) Cellulitis and abscess Assessment & Plan: On meropenem, may need to increase cesar now that renal function improving; Status: Acute (4) Hypertension Assessment & Plan: BP elevated, will re-assess now that patient is back to taking PO meds; continue coreg 12.5 mg (dose recently increase) Status: Acute
[2017-07-22] MEDS ORDERED: NIFEdipine 30 mg ER Tab PO SCH (06:45)
--- NOTE | 2017-07-22 08:15 | CP.PCM.PN ---
Subjective - Date & Time of Evaluation Date of Evaluation: 07/22/17 Time of Evaluation: 09:15 - Subjective Subjective: PGY2 Neuro progress note for Dr. Hoyt Patient seen and examined at bedside. She was ao x 2 this morning. Patient was confused overnight and scream out intermittently. She complained of headache this AM but denied acute complaints of chest pain and SOB. Patient was not cooperative with rest of exam. Complete ROS unobtainable. Objective - Vital Signs/Intake and Output Vital Signs (last 24 hours): Temp Pulse Resp BP Pulse Ox 97.4 F L 72 33 H 182/95 H 96 07/22/17 04:00 07/22/17 06:00 07/22/17 06:00 07/22/17 06:00 07/22/17 02:30 Intake and Output: 07/22/17 07/22/17 06:59 18:59 Intake Total 200 Output Total 450 Balance -250 - Medications Medications: Current Medications Acetaminophen (Tylenol 325mg Tab) 650 mg PO Q4H PRN PRN Reason: pain fever Last Admin: 07/22/17 00:05 Dose: 650 mg Aspirin (Aspirin Chewable) 81 mg PO DAILY [facility] Last Admin: 07/21/17 09:58 Dose: 81 mg Atorvastatin Calcium (Lipitor) 40 mg PO DIN [facility] Last Admin: 07/21/17 17:48 Dose: 40 mg Carvedilol (Coreg) 12.5 mg PO Q12H [facility] Last Admin: 07/21/17 20:03 Dose: 12.5 mg Clopidogrel Bisulfate (Plavix) 75 mg PO DAILY [facility] Last Admin: 07/21/17 09:58 Dose: 75 mg Famotidine (Pepcid) 20 mg PO HS [facility] Last Admin: 07/21/17 21:50 Dose: 20 mg Ferrous Sulfate (Feosol) 324 mg PO BID [facility] Last Admin: 07/21/17 17:48 Dose: 324 mg Furosemide (Lasix) 20 mg IVP DAILY [facility] Hydralazine HCl (Apresoline) 10 mg IVP Q6 PRN PRN Reason: SBP >160 DBP>90 Last Admin: 07/21/17 04:58 Dose: 10 mg Meropenem 500 mg/ Sodium (Chloride) 50 mls @ 100 mls/hr IVPB Q12 [facility] PRN Reason: Protocol Last Admin: 07/21/17 21:48 Dose: 100 mls/hr Insulin Human Regular (Humulin R Low) 0 units SC ACHS [facility] PRN Reason: Protocol Last Admin: 07/21/17 21:47 Dose: Not Given Mupirocin (Bactroban Ointment) 1 gm TOP BID [facility] Last Admin: 07/21/17 17:51 Dose: Not Given Nifedipine (Procardia Xl) 30 mg PO DAILY [facility] Insulin Degludec [ Tresiba Flextouch U- 200] 30 unit SC HS [facility] Last Admin: 07/18/17 22:31 Dose: Not Given Pioglitazone HCl (Actos) 45 mg PO DAILY [facility] Propranolol HCl (Inderal) 10 mg PO Q8 [facility] Last Admin: 07/22/17 05:34 Dose: 10 mg Quetiapine Fumarate (Seroquel) 12.5 mg PO HS [facility] PRN Reason: Protocol Last Admin: 07/21/17 21:50 Dose: 12.5 mg Sitagliptin Phosphate (Januvia) 25 mg PO DAILY [facility] Last Admin: 07/19/17 10:29 Dose: 25 mg - Labs Labs: 07/21/17 06:00 07/21/17 12:00 PT 15.1 SECONDS (9.4-12.5) H 07/20/17 09:55 INR 1.31 (0.93-1.08) H 07/20/17 09:55 APTT 37.7 Seconds (25.1-36.5) H 07/20/17 09:55 - Constitutional Appears: Unkempt - Neurological Exam Neurological Exam: Alert, Awake. absent: Oriented x3 (oriented to self and place) Assessment and Plan - Assessment and Plan (Free Text) Assessment: 71yo female PMHx HTN, DM, dementia, L foot ulceration s/p toe amputations was admitted originally on 07/15 at [facility] for poor responsiveneness and cellulitis and ulceration of her left foot. Neurology consulted for Code Stroke. Plan: -patient is at baseline -CT head: negative -CTA head/neck: negative -MRI brain: limited motion degraded study. no evidence of acute intracranial hemorrhage or infarction. Minor chronic white matter and brainstem ischemic changes. moderate generalized volume loss. -unlikely to be a seizure or stroke -ammonia, prolactin and troponin all wnl -Echo unremarkable -f/u EEG -Seroquel 12.5mg po at night -fall precautions -seizure precautions -HoB above 30degrees -aspiration precautions Discussed with Dr. Lai Jett PGY2
--- NOTE | 2017-07-22 08:16 | PN ---
DATE: 07/21/2017 SUBJECTIVE: Patient is a 71-year-old female. Patient was seen and examined at the bedside on 07/21/2017. Patient is comfortable, sitting on the chair, feeling fatigued and tired. No nausea, vomiting or diarrhea. Patient is not very good historian. She is actually blind. PHYSICAL EXAMINATION: VITAL SIGNS: Temperature 98, pulse 86, respiratory rate 27, blood pressure 158/76, pulse oximetry 96. HEENT: Head normocephalic, atraumatic. Eyes, PERRLA. Extraocular muscles intact. Conjunctivae clear. Nose patent. NECK: Supple. No carotid bruit. No JVD or thyromegaly. CHEST: Bilaterally symmetrical. HEART: S1, S2 positive. LUNGS: Clear to auscultation. ABDOMEN: Soft. Bowel sounds present. No organomegaly. EXTREMITIES: No edema, no cyanosis. NEUROLOGIC: Patient is awake, alert. Moving all four extremities. No focal deficits. MEDICATIONS: Tylenol, aspirin, Lipitor, Coreg, Plavix, Pepcid, iron, insulin, Actos, Inderal, Seroquel. LABORATORY DATA: White blood cells 10, hemoglobin 9.5, hematocrit 29.9, platelets 314. Sodium 147, potassium 3.8, BUN 19, creatinine 1.7, glucose 125. ASSESSMENT AND PLAN: Ms. Tamy Valdovinos is a 71-year-old lady with anemia, renal insufficiency, hyperglycemia, hyperchloremia. She has altered mental status. She is a resident of [facility]. Patient was on vancomycin over there. We started meropenem and vancomycin. Local wound care. Patient has osteomyelitis, getting antibiotics from Infectious Disease. There is a history of rapid response when patient was on the medical floor. Transferred to the unit, improving there. Patient has acute renal failure, proteinuria, cellulitis and abscess, hypertension. Reza Cosby is the [employer] on the case. Dr. Pack is the Infectious Disease. Seen by the hospitalist also. Podiatry, Dr. Anderson/Dr. Trujillo is on the case. Patient appears to be better today and conversing. Denies pain in the left lower extremity. Denies nausea, vomiting, or diarrhea. Continue present treatment. Repeat labs. Deisy Gilman MD
[2017-07-22] MEDS: Insulin Reg-LOW-Coverage SC SCH ×3 (08:29→22:19)
[2017-07-22] MEDS: Meropenem 500 MG in Sodium Chloride 0.9% 50 ML IVPB SCH ×3 (11:32→21:44)
[2017-07-22] MEDS ORDERED: Lidocaine 2% Inj (20ml) ONE (13:14)
--- NOTE | 2017-07-22 14:21 | CP.PCM.PN ---
<Myron Melendez - Last Filed: 07/22/17 14:37> Subjective - Date & Time of Evaluation Date of Evaluation: 07/22/17 Time of Evaluation: 12:30 - Subjective Subjective: Podiatry Progress Note- Dr. Anderson/Cassandra 71 year old female seen and evaluated at bedside for left lateral nonhealing ulceration with osteomyelitis. Patient is seen laying comfortably in bedside and in NAD. Patient is not easily aroused. No pain expressed with dressing change. Objective - Vital Signs/Intake and Output Vital Signs (last 24 hours): Temp Pulse Resp BP Pulse Ox 97.4 F L 72 33 H 188/96 H 96 07/22/17 04:00 07/22/17 09:15 07/22/17 06:00 07/22/17 09:15 07/22/17 02:30 Intake and Output: 07/22/17 07/22/17 06:59 18:59 Intake Total 200 Output Total 450 Balance -250 - Medications Medications: Current Medications Acetaminophen (Tylenol 325mg Tab) 650 mg PO Q4H PRN PRN Reason: pain fever Last Admin: 07/22/17 00:05 Dose: 650 mg Aspirin (Aspirin Chewable) 81 mg PO DAILY [facility] Last Admin: 07/22/17 11:30 Dose: 81 mg Atorvastatin Calcium (Lipitor) 40 mg PO DIN [facility] Last Admin: 07/21/17 17:48 Dose: 40 mg Carvedilol (Coreg) 12.5 mg PO Q12H [facility] Last Admin: 07/22/17 08:29 Dose: 12.5 mg Clopidogrel Bisulfate (Plavix) 75 mg PO DAILY [facility] Last Admin: 07/22/17 11:34 Dose: 75 mg Famotidine (Pepcid) 20 mg PO HS [facility] Last Admin: 07/21/17 21:50 Dose: 20 mg Ferrous Sulfate (Feosol) 324 mg PO BID [facility] Last Admin: 07/22/17 11:31 Dose: 324 mg Furosemide (Lasix) 20 mg IVP DAILY [facility] Last Admin: 07/22/17 08:28 Dose: 20 mg Hydralazine HCl (Apresoline) 10 mg IVP Q6 PRN PRN Reason: SBP >160 DBP>90 Last Admin: 07/21/17 04:58 Dose: 10 mg Meropenem 500 mg/ Sodium (Chloride) 50 mls @ 100 mls/hr IVPB Q12 [facility] PRN Reason: Protocol Last Admin: 07/22/17 11:33 Dose: 100 mls/hr Insulin Human Regular (Humulin R Low) 0 units SC ACHS [facility] PRN Reason: Protocol Last Admin: 07/22/17 08:29 Dose: 1 units Mupirocin (Bactroban Ointment) 1 gm TOP BID [facility] Last Admin: 07/21/17 17:51 Dose: Not Given Nifedipine (Procardia Xl) 30 mg PO DAILY [facility] Last Admin: 07/22/17 09:15 Dose: 30 mg Insulin Degludec [ Tresiba Flextouch U- 200] 30 unit SC HS [facility] Last Admin: 07/18/17 22:31 Dose: Not Given Pioglitazone HCl (Actos) 45 mg PO DAILY [facility] Propranolol HCl (Inderal) 10 mg PO Q8 [facility] Last Admin: 07/22/17 05:34 Dose: 10 mg Quetiapine Fumarate (Seroquel) 12.5 mg PO HS [facility] PRN Reason: Protocol Last Admin: 07/21/17 21:50 Dose: 12.5 mg Sitagliptin Phosphate (Januvia) 25 mg PO DAILY [facility] Last Admin: 07/19/17 10:29 Dose: 25 mg - Labs Labs: 07/21/17 06:00 07/21/17 12:00 PT 15.1 SECONDS (9.4-12.5) H 07/20/17 09:55 INR 1.31 (0.93-1.08) H 07/20/17 09:55 APTT 37.7 Seconds (25.1-36.5) H 07/20/17 09:55 - Constitutional Appears: Non-toxic, No Acute Distress - Extremities Exam Extremities Exam: absent: Calf Tenderness Additional comments: Left lower extremity focused exam: Vasc: DP/PT pulses palpable 1/4. Temperature gradient warm to cool. CFT < 3 sec x 3 digits. Mild pedal edema noted to lateral foot Derm: Open ulceration measuring 7 cm x 3 cm x 0.6cm to lateral forefoot with granular wound base. Maceration to lukas wound noted to be resolved. Serous drainage noted to the dressing, no malodor, no tunneling or undermining present , no odor, no streaking, no purulence Neuro: Protective sensation absent, gross sensation diminished Ortho: No tenderness to palpation of lateral forefoot ulceration Assessment and Plan - Assessment and Plan (Free Text) Assessment: 71 y/o diabetic female with lateral left foot full thickness ulceration with positive osteomyelitis Plan: Patient seen and evaluated at bedside Discussed with attending Dr. Trujillo X-rays of L foot (-) for any acute osseous changes/acute OM MRI of L foot ordered-5th metatarsal OM Cleansed ulceration with wound cleanser, followed by peroxide, followed by saline solution. Dressed ulceration with bactroban, xeroform, DSD, ABD, and kerlix Continue peroxide until Tuesday. Arterials studies re-ordered arterial duplex of left LE If current dressing left foot dressing is inhibit arterial duplex studies to be performed, please remove current dressing and put temporarily dressing consisting large optifoam covering site of ulceration. After studies, cleansed ulceration with saline solution. Dressed ulceration with bactroban, xeroform, dsd, ABD and kerlix. Physician-nursing communication placed. Thank you. Wound culture + for Acinetobacter Baumanii Continue IV abx per ID Continue Multipodus boots at all times in bed Podiatry will continue to follow while in house <Harrison Trujillo - Last Filed: 07/23/17 08:17> Objective - Vital Signs/Intake and Output Vital Signs (last 24 hours): Temp Pulse Resp BP Pulse Ox 97.4 F L 48 L 17 108/51 L 90 L 07/22/17 04:00 07/23/17 08:01 07/23/17 05:20 07/23/17 08:01 07/23/17 05:20 Intake and Output: 07/23/17 07/23/17 06:59 18:59 Intake Total 100 Output Total 0 Balance 100 - Medications Medications: Current Medications Acetaminophen (Tylenol 325mg Tab) 650 mg PO Q4H PRN PRN Reason: pain fever Last Admin: 07/22/17 00:05 Dose: 650 mg Aspirin (Aspirin Chewable) 81 mg PO DAILY [facility] Last Admin: 07/22/17 11:30 Dose: 81 mg Atorvastatin Calcium (Lipitor) 40 mg PO DIN [facility] Last Admin: 07/22/17 18:27 Dose: 40 mg Carvedilol (Coreg) 12.5 mg PO Q12H [facility] Last Admin: 07/23/17 08:01 Dose: Not Given Clopidogrel Bisulfate (Plavix) 75 mg PO DAILY [facility] Last Admin: 07/22/17 11:34 Dose: 75 mg Famotidine (Pepcid) 20 mg PO HS [facility] Last Admin: 07/22/17 21:48 Dose: 20 mg Ferrous Sulfate (Feosol) 324 mg PO BID [facility] Last Admin: 07/22/17 18:26 Dose: 324 mg Furosemide (Lasix) 20 mg IVP DAILY [facility] Last Admin: 07/22/17 08:28 Dose: 20 mg Hydralazine HCl (Apresoline) 10 mg IVP Q6 PRN PRN Reason: SBP >160 DBP>90 Last Admin: 07/21/17 04:58 Dose: 10 mg Meropenem 500 mg/ Sodium (Chloride) 50 mls @ 100 mls/hr IVPB Q12 [facility] PRN Reason: Protocol Last Admin: 07/22/17 21:44 Dose: 100 mls/hr Insulin Human Regular (Humulin R Low) 0 units SC [facility] PRN Reason: Protocol Last Admin: 07/23/17 08:10 Dose: 2 units Mupirocin (Bactroban Ointment) 1 gm TOP BID [facility] Last Admin: 07/21/17 17:51 Dose: Not Given Nifedipine (Procardia Xl) 30 mg PO DAILY [facility] Last Admin: 07/22/17 09:15 Dose: 30 mg Insulin Degludec [ Tresiba Flextouch U- 200] 30 unit SC HS [facility] Last Admin: 07/18/17 22:31 Dose: Not Given Pioglitazone HCl (Actos) 45 mg PO DAILY [facility] Propranolol HCl (Inderal) 10 mg PO Q8 [facility] Last Admin: 07/22/17 22:20 Dose: Not Given Quetiapine Fumarate (Seroquel) 12.5 mg PO HS [facility] PRN Reason: Protocol Last Admin: 07/22/17 21:49 Dose: 12.5 mg Sitagliptin Phosphate (Januvia) 25 mg PO DAILY [facility] Last Admin: 07/19/17 10:29 Dose: 25 mg - Labs Labs: 07/21/17 06:00 07/21/17 12:00 PT 15.1 SECONDS (9.4-12.5) H 07/20/17 09:55 INR 1.31 (0.93-1.08) H 07/20/17 09:55 APTT 37.7 Seconds (25.1-36.5) H 07/20/17 09:55 Attending/Attestation - Attestation I have personally seen and examined this patient.: Yes I have fully participated in the care of the patient.: Yes I have reviewed all pertinent clinical information, including history, physical exam and plan: Yes
--- NOTE | 2017-07-22 16:01 | CP.PCM.PN ---
Subjective - Date & Time of Evaluation Date of Evaluation: 07/22/17 Time of Evaluation: 12:00 - Subjective Subjective: Per nursing staff, patient confused; didn't sleep last night; Objective - Vital Signs/Intake and Output Vital Signs (last 24 hours): Temp Pulse Resp BP Pulse Ox 97.4 F L 72 33 H 188/96 H 96 07/22/17 04:00 07/22/17 09:15 07/22/17 06:00 07/22/17 09:15 07/22/17 02:30 Intake and Output: 07/22/17 07/22/17 06:59 18:59 Intake Total 200 Output Total 450 Balance -250 - Medications Medications: Current Medications Acetaminophen (Tylenol 325mg Tab) 650 mg PO Q4H PRN PRN Reason: pain fever Last Admin: 07/22/17 00:05 Dose: 650 mg Aspirin (Aspirin Chewable) 81 mg PO DAILY [facility] Last Admin: 07/22/17 11:30 Dose: 81 mg Atorvastatin Calcium (Lipitor) 40 mg PO DIN [facility] Last Admin: 07/21/17 17:48 Dose: 40 mg Carvedilol (Coreg) 12.5 mg PO Q12H [facility] Last Admin: 07/22/17 08:29 Dose: 12.5 mg Clopidogrel Bisulfate (Plavix) 75 mg PO DAILY [facility] Last Admin: 07/22/17 11:34 Dose: 75 mg Famotidine (Pepcid) 20 mg PO HS [facility] Last Admin: 07/21/17 21:50 Dose: 20 mg Ferrous Sulfate (Feosol) 324 mg PO BID [facility] Last Admin: 07/22/17 11:31 Dose: 324 mg Furosemide (Lasix) 20 mg IVP DAILY [facility] Last Admin: 07/22/17 08:28 Dose: 20 mg Hydralazine HCl (Apresoline) 10 mg IVP Q6 PRN PRN Reason: SBP >160 DBP>90 Last Admin: 07/21/17 04:58 Dose: 10 mg Meropenem 500 mg/ Sodium (Chloride) 50 mls @ 100 mls/hr IVPB Q12 [facility] PRN Reason: Protocol Last Admin: 07/22/17 11:33 Dose: 100 mls/hr Insulin Human Regular (Humulin R Low) 0 units SC ACHS [facility] PRN Reason: Protocol Last Admin: 07/22/17 08:29 Dose: 1 units Mupirocin (Bactroban Ointment) 1 gm TOP BID [facility] Last Admin: 07/21/17 17:51 Dose: Not Given Nifedipine (Procardia Xl) 30 mg PO DAILY [facility] Last Admin: 07/22/17 09:15 Dose: 30 mg Insulin Degludec [ Tresiba Flextouch U- 200] 30 unit SC HS [facility] Last Admin: 07/18/17 22:31 Dose: Not Given Pioglitazone HCl (Actos) 45 mg PO DAILY [facility] Propranolol HCl (Inderal) 10 mg PO Q8 [facility] Last Admin: 07/22/17 05:34 Dose: 10 mg Quetiapine Fumarate (Seroquel) 12.5 mg PO HS [facility] PRN Reason: Protocol Last Admin: 07/21/17 21:50 Dose: 12.5 mg Sitagliptin Phosphate (Januvia) 25 mg PO DAILY [facility] Last Admin: 07/19/17 10:29 Dose: 25 mg - Labs Labs: 07/21/17 06:00 07/21/17 12:00 PT 15.1 SECONDS (9.4-12.5) H 07/20/17 09:55 INR 1.31 (0.93-1.08) H 07/20/17 09:55 APTT 37.7 Seconds (25.1-36.5) H 07/20/17 09:55 - Constitutional Appears: Non-toxic, No Acute Distress, Confused - ENT Exam ENT Exam: Mucous Membranes Moist - Respiratory Exam Respiratory Exam: Clear to Ausculation Bilateral. absent: Respiratory Distress - Cardiovascular Exam Cardiovascular Exam: RRR, +S1, +S2 - GI/Abdominal Exam GI & Abdominal Exam: Soft. absent: Distended, Tenderness - Extremities Exam Additional comments: moderate b/l leg edema; - Neurological Exam Neurological Exam: Awake Additional comments: arousable but lethargic - Psychiatric Exam Psychiatric exam: absent: Agitated - Skin Skin Exam: Warm. absent: Cyanosis Assessment and Plan (1) Acute renal failure Assessment & Plan: ATN, improving; relatively stable volume and electrolyte status; continue to avoid nephrotoxic agents; Status: Acute (2) Proteinuria Assessment & Plan: ~600 mg/g by spot ratio, relatively mild, can be explained by ATN; can repeat as outpatient once renal function back to baseline; Status: Acute (3) Cellulitis and abscess Assessment & Plan: On meropenem; may need to increase dose as renal function improves; Status: Acute (4) Hypertension Assessment & Plan: Drastic drop in BP after adding nifedipine XL 30 mg today; will re-assess tomorrow; continue rest of meds including IV lasix 20 mg daily; Status: Acute
--- NOTE | 2017-07-22 17:13 | CP.PCM.PN ---
Subjective - Date & Time of Evaluation Date of Evaluation: 07/22/17 Time of Evaluation: 15:15 - Subjective Subjective: Infectious Disease Follow Up: July 22, 2017 71 yo AA female sent from [facility] for poor responsiveness. 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 History of E. coli and enterococcus. The E. coli is ESBL+. The patient can give little history of her own. She is currently awake and alert now. The patient was on IV Vancomycin at [facility]. Unclear if she was still on Meropenem there. Renal insufficiency. The patient had normal creatinine in June 2017. Still elevated creatinine. Unclear if this is secondary to several factors such as dehydration, poor appetite, and use of Vancomycin. Vancomycin remains high at 35.4 but she did get a dose in hospital early in the hospital course. At best the patient is AAO x 1. The patient has very uneven behavior... I'm not sure if this is her normal vs. AMS. Wound cultures showing gram negative rods identified as MDR Acinetobacter. Urine with yeast. Patient found unresponsive yesterday AM. The patient had rapid response and Code Stroke called. Found to be severely hypertensive yesterday AM. Taken to ICU for further care. The patient has improved since transfer to ICU and is currently awake and alert. Patient does not always make sense when speaking but that is close to her baseline. Creatinine improved a little bit to 1.7. Overnight no new issues. Patient is more or less at baseline mental status. Objective - Vital Signs/Intake and Output Vital Signs (last 24 hours): Temp Pulse Resp BP Pulse Ox 97.4 F L 72 33 H 188/96 H 96 07/22/17 04:00 07/22/17 09:15 07/22/17 06:00 07/22/17 09:15 07/22/17 02:30 Intake and Output: 07/22/17 07/22/17 06:59 18:59 Intake Total 200 Output Total 450 Balance -250 - Medications Medications: Current Medications Acetaminophen (Tylenol 325mg Tab) 650 mg PO Q4H PRN PRN Reason: pain fever Last Admin: 07/22/17 00:05 Dose: 650 mg Aspirin (Aspirin Chewable) 81 mg PO DAILY [facility] Last Admin: 07/22/17 11:30 Dose: 81 mg Atorvastatin Calcium (Lipitor) 40 mg PO DIN [facility] Last Admin: 07/21/17 17:48 Dose: 40 mg Carvedilol (Coreg) 12.5 mg PO Q12H [facility] Last Admin: 07/22/17 08:29 Dose: 12.5 mg Clopidogrel Bisulfate (Plavix) 75 mg PO DAILY [facility] Last Admin: 07/22/17 11:34 Dose: 75 mg Famotidine (Pepcid) 20 mg PO HS [facility] Last Admin: 07/21/17 21:50 Dose: 20 mg Ferrous Sulfate (Feosol) 324 mg PO BID [facility] Last Admin: 07/22/17 11:31 Dose: 324 mg Furosemide (Lasix) 20 mg IVP DAILY [facility] Last Admin: 07/22/17 08:28 Dose: 20 mg Hydralazine HCl (Apresoline) 10 mg IVP Q6 PRN PRN Reason: SBP >160 DBP>90 Last Admin: 07/21/17 04:58 Dose: 10 mg Meropenem 500 mg/ Sodium (Chloride) 50 mls @ 100 mls/hr IVPB Q12 [facility] PRN Reason: Protocol Last Admin: 07/22/17 11:33 Dose: 100 mls/hr Insulin Human Regular (Humulin R Low) 0 units SC ACHS [facility] PRN Reason: Protocol Last Admin: 07/22/17 08:29 Dose: 1 units Mupirocin (Bactroban Ointment) 1 gm TOP BID [facility] Last Admin: 07/21/17 17:51 Dose: Not Given Nifedipine (Procardia Xl) 30 mg PO DAILY [facility] Last Admin: 07/22/17 09:15 Dose: 30 mg Insulin Degludec [ Tresiba Flextouch U- 200] 30 unit SC HS [facility] Last Admin: 07/18/17 22:31 Dose: Not Given Pioglitazone HCl (Actos) 45 mg PO DAILY [facility] Propranolol HCl (Inderal) 10 mg PO Q8 [facility] Last Admin: 07/22/17 05:34 Dose: 10 mg Quetiapine Fumarate (Seroquel) 12.5 mg PO HS [facility] PRN Reason: Protocol Last Admin: 07/21/17 21:50 Dose: 12.5 mg Sitagliptin Phosphate (Januvia) 25 mg PO DAILY [facility] Last Admin: 07/19/17 10:29 Dose: 25 mg - Labs Labs: 07/21/17 06:00 05/17/18 12:00 PT 15.1 SECONDS (9.4-12.5) H 07/20/17 09:55 INR 1.31 (0.93-1.08) H 07/20/17 09:55 APTT 37.7 Seconds (25.1-36.5) H 07/20/17 09:55 - Constitutional Appears: Non-toxic, No Acute Distress, Chronically Ill - Head Exam Head Exam: ATRAUMATIC, NORMOCEPHALIC - Eye Exam Eye Exam: EOMI, PERRL Pupil Exam: NORMAL ACCOMODATION, PERRL - ENT Exam ENT Exam: Mucous Membranes Moist, Normal External Ear Exam, TM's Normal Bilaterally - Neck Exam Neck Exam: Full ROM, Normal Inspection - Respiratory Exam Respiratory Exam: Clear to Ausculation Bilateral, NORMAL BREATHING PATTERN. absent: Rales, Rhonchi, Wheezes - Cardiovascular Exam Cardiovascular Exam: REGULAR RHYTHM, RRR, +S1, +S2 - GI/Abdominal Exam GI & Abdominal Exam: Soft, Normal Bowel Sounds. absent: Distended, Tenderness - Extremities Exam Additional comments: Left foot with 3rd and 4th toe amputations. Lateral left foot ulceration full thickness. - Neurological Exam Neurological Exam: Alert, Awake, CN II-XII Intact Additional comments: AAO x 1-2 at best. - Psychiatric Exam Psychiatric exam: Normal Affect, Normal Mood - Skin Skin Exam: Intact, Normal Color Assessment and Plan - Assessment and Plan (Free Text) Assessment: 71 yo AA female with altered renal function and was poorly responsive at [facility]. The patient was on Vancomycin for antibiotic treatment. Will restart Meropenem and check Vancomycin levels fist given worsening creatinine levels. Local wound care. Still with decreased renal function despite normal values in the early part of June 2017. Likely multiple factors contributing to this including dehydration , poor oral appetite, and use of Vancomycin antibiotics. Unclear if the renal function will recover at this point... it is too early to tell. Recheck creatinine tomorrow. May need to consider Zyvox over Vancomycin for treatment given renal function. Check Vancomycin level tomorrow again. Level currently is 35.4 taken about 24 hours after the last administration of IV Vancomycin. Possible consideration of Zyvox use after Vancomycin levels normalize and if culture still suggest Enterococcus infection. Podiatry has recultured with foot. Will continue with renally dosed meropenem for now. Gram negative rods in wound cultures of the foot identified as MDR Acinetobacter. Will check with lab regarding sensitivities to additional antibiotics. For now remains on meropenem. Brought to MICU after being found unresponsive. Severely hypertensive during rapid response. After a few hours in the MICU, the patient is now awake and alert. Continuing on meropenem. The patient has been afebrile and has had no leukocytosis. No new issues overnight. Creatinine improved to 1.7 today. No leukocytosis. Thank you for allowing me to participate in the care of the patient, we will follow with you.
--- NOTE | 2017-07-22 17:59 | VASCULAR ---
PROCEDURE: Ultrasound and fluoroscopically placed left upper extremity PICC line. HISTORY: Sepsis. Limited IV access. Long-term IV antibiotics. Needs PICC line PHYSICIAN(S): Johnathan Damian MD. TECHNIQUE: The relative risks and indications of the procedure were explained to the patient's family and consent obtained. The patient was placed supine on the arteriogram table and the left arm prepped and draped in the usual sterile fashion. A tourniquet was applied to the left axilla. 1% Xylocaine was used to anesthetize the skin and soft tissues at the puncture site above the elbow. The left brachial vein was punctured under direct ultrasound guidance with a micropuncture set. A 0.018 guidewire was advanced centrally and used to measure the length to the SVC/RA junction. A 5 [place] single-lumen PICC line 45 cm long was advanced to the SVC/RA junction. The catheter was flushed and secured. The patient tolerated the procedure well. IMPRESSION: 1. Ultrasound and fluoroscopically placed left upper extremity PICC line. A 5 [place] single-lumen PICC line 45 cm long was advanced to the SVC/RA junction.
[2017-07-23] MEDS: Insulin Reg-LOW-Coverage SC SCH ×5 (08:10→22:00)
--- NOTE | 2017-07-23 09:53 | CP.PCM.PN ---
<NilamAlexia - Last Filed: 07/23/17 09:49> Subjective - Date & Time of Evaluation Date of Evaluation: 07/23/17 Time of Evaluation: 09:49 - Subjective Subjective: Podiatry Progress Note- Dr. Trujillo 71 year old female seen and evaluated at bedside with attending, Dr. Trujillo for left lateral nonhealing ulceration with osteomyelitis. Patient is seen laying comfortably in bedside and in NAD. No pain expressed with dressing change. Objective - Vital Signs/Intake and Output Vital Signs (last 24 hours): Temp Pulse Resp BP Pulse Ox 97.4 F L 48 L 17 108/51 L 90 L 07/22/17 04:00 07/23/17 08:01 07/23/17 05:20 07/23/17 08:01 07/23/17 05:20 Intake and Output: 07/23/17 07/23/17 06:59 18:59 Intake Total 100 Output Total 0 Balance 100 - Medications Medications: Current Medications Acetaminophen (Tylenol 325mg Tab) 650 mg PO Q4H PRN PRN Reason: pain fever Last Admin: 07/22/17 00:05 Dose: 650 mg Aspirin (Aspirin Chewable) 81 mg PO DAILY [facility] Last Admin: 07/22/17 11:30 Dose: 81 mg Atorvastatin Calcium (Lipitor) 40 mg PO DIN [facility] Last Admin: 07/22/17 18:27 Dose: 40 mg Carvedilol (Coreg) 12.5 mg PO Q12H [facility] Last Admin: 07/23/17 08:01 Dose: Not Given Clopidogrel Bisulfate (Plavix) 75 mg PO DAILY [facility] Last Admin: 07/22/17 11:34 Dose: 75 mg Famotidine (Pepcid) 20 mg PO HS [facility] Last Admin: 07/22/17 21:48 Dose: 20 mg Ferrous Sulfate (Feosol) 324 mg PO BID [facility] Last Admin: 07/22/17 18:26 Dose: 324 mg Furosemide (Lasix) 20 mg IVP DAILY [facility] Last Admin: 07/22/17 08:28 Dose: 20 mg Hydralazine HCl (Apresoline) 10 mg IVP Q6 PRN PRN Reason: SBP >160 DBP>90 Last Admin: 07/21/17 04:58 Dose: 10 mg Meropenem 500 mg/ Sodium (Chloride) 50 mls @ 100 mls/hr IVPB Q12 [facility] PRN Reason: Protocol Last Admin: 07/22/17 21:44 Dose: 100 mls/hr Insulin Human Regular (Humulin R Low) 0 units SC ACHS [facility] PRN Reason: Protocol Last Admin: 07/23/17 08:10 Dose: 2 units Mupirocin (Bactroban Ointment) 1 gm TOP BID [facility] Last Admin: 07/21/17 17:51 Dose: Not Given Nifedipine (Procardia Xl) 30 mg PO DAILY [facility] Last Admin: 07/22/17 09:15 Dose: 30 mg Insulin Degludec [ Tresiba Flextouch U- 200] 30 unit SC HS [facility] Last Admin: 07/18/17 22:31 Dose: Not Given Pioglitazone HCl (Actos) 45 mg PO DAILY [facility] Propranolol HCl (Inderal) 10 mg PO Q8 [facility] Last Admin: 07/22/17 22:20 Dose: Not Given Quetiapine Fumarate (Seroquel) 12.5 mg PO HS [facility] PRN Reason: Protocol Last Admin: 07/22/17 21:49 Dose: 12.5 mg Sitagliptin Phosphate (Januvia) 25 mg PO DAILY [facility] Last Admin: 07/19/17 10:29 Dose: 25 mg - Labs Labs: 07/21/17 06:00 07/21/17 12:00 PT 15.1 SECONDS (9.4-12.5) H 07/20/17 09:55 INR 1.31 (0.93-1.08) H 07/20/17 09:55 APTT 37.7 Seconds (25.1-36.5) H 07/20/17 09:55 - Constitutional Appears: No Acute Distress, Older Than Stated Age, Chronically Ill - Extremities Exam Additional comments: Left lower extremity focused exam: Vasc: DP and PT pulses palpable 1/4. Temperature gradient warm to cool. CFT < 3 sec x 3 digits. Mild pedal edema noted to lateral foot Derm: Open ulceration measuring approximately 7 cm x 3 cm x 0.6 cm to lateral forefoot with granular wound base. Maceration to lukas wound noted to be resolved. Serous drainage noted to the dressing, no malodor, no tunneling or undermining present, no odor, no streaking, no purulence Neuro: Protective sensation absent, gross sensation diminished Ortho: No tenderness to palpation of lateral forefoot ulceration - Neurological Exam Neurological Exam: Awake - Psychiatric Exam Psychiatric exam: Normal Affect Assessment and Plan - Assessment and Plan (Free Text) Assessment: 71 y/o diabetic female with lateral left foot full thickness ulceration with osteomyelitis Plan: Patient seen and evaluated at bedside with attending Dr. Trujillo X-rays of L foot (-) for any acute osseous changes/acute OM MRI of L foot ordered-5th metatarsal OM Cleansed ulceration with wound cleanser, followed by peroxide, followed by saline solution. Dressed ulceration with bactroban, xeroform, DSD, ABD, and kerlix Arterials studies re-ordered arterial duplex of left LE If current dressing left foot dressing is inhibit arterial duplex studies to be performed, please remove current dressing and put temporarily dressing consisting large optifoam covering site of ulceration. After studies, cleansed ulceration with saline solution. Dressed ulceration with bactroban, xeroform, dsd, ABD and kerlix. Physician-nursing communication placed. Thank you. Wound culture + for Acinetobacter Baumanii Continue IV abx per ID Continue Multipodus boots at all times in bed Podiatry will continue to follow while in house <Harrison Trujillo - Last Filed: 07/26/17 11:48> Objective - Vital Signs/Intake and Output Vital Signs (last 24 hours): Temp Pulse Resp BP Pulse Ox 98.1 F 88 13 156/91 H 100 07/26/17 07:30 07/26/17 10:00 07/26/17 10:00 07/26/17 10:00 07/26/17 10:00 - Medications Medications: Current Medications Acetaminophen (Tylenol 325mg Tab) 650 mg PO Q4H PRN PRN Reason: pain fever Last Admin: 07/22/17 00:05 Dose: 650 mg Albuterol/Ipratropium (Duoneb 3 Mg/0.5 Mg (3 Ml) Ud) 3 ml IH [id number] [facility] Last Admin: 07/26/17 11:14 Dose: 3 ml Aspirin (Aspirin Chewable) 81 mg PO DAILY [facility] Last Admin: 07/26/17 09:35 Dose: 81 mg Atorvastatin Calcium (Lipitor) 40 mg PO DIN [facility] Last Admin: 07/25/17 16:36 Dose: 40 mg Clopidogrel Bisulfate (Plavix) 75 mg PO DAILY [facility] Last Admin: 07/26/17 09:35 Dose: 75 mg Clotrimazole (Lotrimin 1%) 1 gm TOP DAILY [facility] Last Admin: 07/26/17 09:34 Dose: 1 applic Collagenase (Santyl) 1 gm TOP DAILY [facility] Last Admin: 07/26/17 10:20 Dose: Not Given Famotidine (Pepcid) 20 mg PO HS [facility] Last Admin: 07/25/17 21:22 Dose: 20 mg Ferrous Sulfate (Feosol) 324 mg PO BID [facility] Last Admin: 07/26/17 09:34 Dose: 324 mg Furosemide (Lasix) 20 mg IVP DAILY [facility] Last Admin: 07/23/17 11:39 Dose: Not Given Furosemide (Lasix) 40 mg IVP DAILY [facility] Last Admin: 07/24/17 09:33 Dose: 40 mg Hydralazine HCl (Apresoline) 10 mg IVP Q6 PRN PRN Reason: SBP >160 DBP>90 Last Admin: 07/25/17 20:13 Dose: 10 mg Hydralazine HCl (Apresoline) 25 mg PO QID [facility] Last Admin: 07/26/17 09:34 Dose: 25 mg Tigecycline 50 mg/ Sodium (Chloride) 100 mls @ 100 mls/hr IVPB Q12 [facility] PRN Reason: Protocol Last Admin: 07/26/17 09:37 Dose: 100 mls/hr Sodium Chloride (Sodium Chloride 0.45%) 1,000 mls @ 75 mls/hr IV .[id number] [facility] Last Admin: 07/26/17 02:05 Dose: 75 mls/hr Insulin Human Regular (Humulin R Low) 0 units SC ACHS [facility] PRN Reason: Protocol Last Admin: 07/26/17 07:56 Dose: 3 units Methylprednisolone (Solu-Medrol) 20 mg IVP Q12 [facility] Mupirocin (Bactroban Ointment) 1 gm TOP BID [facility] Last Admin: 07/26/17 10:19 Dose: Not Given Insulin Degludec [ Tresiba Flextouch U- 200] 30 unit SC HS [facility] Last Admin: 07/18/17 22:31 Dose: Not Given Nystatin (Nystop Topical Powder) 1 gm TOP DAILY [facility] Last Admin: 07/26/17 09:34 Dose: 1 applic Pioglitazone HCl (Actos) 45 mg PO DAILY [facility] Propranolol HCl (Inderal) 10 mg PO Q8 [facility] Last Admin: 07/22/17 22:20 Dose: Not Given Quetiapine Fumarate (Seroquel) 12.5 mg PO HS [facility] PRN Reason: Protocol Last Admin: 07/22/17 21:49 Dose: 12.5 mg Sitagliptin Phosphate (Januvia) 25 mg PO DAILY [facility] Last Admin: 07/19/17 10:29 Dose: 25 mg - Labs Labs: 07/26/17 05:30 07/26/17 05:30 PT 15.1 SECONDS (9.4-12.5) H 07/20/17 09:55 INR 1.31 (0.93-1.08) H 07/20/17 09:55 APTT 37.7 Seconds (25.1-36.5) H 07/20/17 09:55 Attending/Attestation - Attestation I have personally seen and examined this patient.: Yes I have fully participated in the care of the patient.: Yes I have reviewed all pertinent clinical information, including history, physical exam and plan: Yes
[2017-07-23] MEDS: Meropenem 500 MG in Sodium Chloride 0.9% 50 ML IVPB SCH (10:03)
[2017-07-23] MEDS: Mupirocin 2% Ointment 15 GM TUBE TOP SCH ×2 (10:06→17:05)
[2017-07-23 11:22] LABS: ALB/GLOB RATIO 0.9 (1.1-1.8); ALBUMIN 2.9 g/dL (3.0-4.8); CALCIUM 8.4 mg/dL (8.4-10.5)
[2017-07-23] MEDS ORDERED: Potassium Chloride 40 mEq/30 ml LIQ UD PO ONE (11:31)
[2017-07-23] MEDS ORDERED: Sodium Chloride 0.45% 1,000 ML IV SCH ×2 (11:45)
[2017-07-23] MEDS ORDERED: Linezolid 600 mg in D5W 300 ml 600 MG/300 ML BAG IVPB SCH (13:00)
--- NOTE | 2017-07-23 13:04 | RAD ---
HISTORY: Shortness of breath. COMPARISON: 07/14/2017 FINDINGS: LUNGS: Pulmonary edema, moderate -an acute finding compared to the prior study. PLEURA: No significant pleural effusion identified, no pneumothorax apparent. CARDIOVASCULAR: Cardiomegaly/cardiogenic pulmonary edema. Macro PICC OSSEOUS STRUCTURES: No significant abnormalities. VISUALIZED UPPER ABDOMEN: Normal. OTHER FINDINGS: None. IMPRESSION: Acute congestive heart failure with moderate -severe pulmonary edema.
[2017-07-23 13:10] LABS: ARTERIAL BLOOD GAS HCO3 23.9 mmol/L (21-28); ARTERIAL BLOOD GAS O2 SAT 93.8 % (95-98); ARTERIAL BLOOD GAS PCO2 57 mm/Hg (35-45); ARTERIAL BLOOD GAS PH 7.23 (7.35-7.45); ARTERIAL BLOOD GAS TCO2 25.6 mmol.L (22-28)
[2017-07-23 13:57] LABS: BASO # 0.01 K/mm3 (0.0-2.0); BASO % 0.1 % (0.0-3.0); EOS % 0.1 % (1.5-5.0); GRAN # 7.55 (1.4-6.5); GRAN % 84.6 % (50.0-68.0); HEMOGLOBIN 8.7 g/dL (12.0-16.0); LYMPH # 0.8 (1.2-3.4); MEAN CELL VOLUME 82.1 fl (80.0-105.0); MEAN CORPUSCULAR HEMOGLOBIN 26.4 pg (25.0-35.0); MEAN CORPUSCULAR HGB CONC 32.1 g/dl (31.0-37.0); MEAN PLATELET VOLUME 10.2 fl (7.0-11.0); MONO # 0.6 (0.1-0.6); MONO % 6.2 % (1.0-6.0); RBC 3.3 10^6/uL (3.5-6.1); RED CELL DISTRIBUTION WIDTH 16.2 % (11.5-14.5); WHITE BLOOD COUNT 8.9 10^3/ul (4.5-11.0)
[2017-07-23] MEDS: MethylPREDNISolone 40 mg Vial IVP SCH ×2 (14:01→22:45)
--- NOTE | 2017-07-23 15:13 | CARD ---
APPROVED REPORT EKG Measurement Heart [id number] [id number] [id number] <Conclusion> Marked sinus bradycardia with premature atrial complexes Prolonged QT Abnormal ECG
--- NOTE | 2017-07-23 15:16 | PN ---
DATE: 07/23/2017 SUBJECTIVE: The patient is seen and examined at bedside. Her mental status was appropriate early in the morning. She was able to follow commands and interact, however later in the day, she become more obtunded and had difficulty breathing. Subsequent chest x-ray revealed flash pulmonary edema and the patient was given Lasix, put on BiPaP. Following ABG revealed also CO2 retention and because some rhonchi and few wheezes were heard on auscultation of the lungs, the patient was started on bronchodilators and low-dose steroids. Possibility of infectious component could not be ruled out. I touched base with Dr. Pack. who recommended switching meropenem to tigecycline which was done. The patient was also started on linezolid. We will repeat ABG in 2 hours to see if CO2 retention improved. Currently, the patient is on BiPaP 16/6 with FIO2 60% and her oxygen saturation remains around 93. PHYSICAL EXAMINATION: VITAL SIGNS: Heart rate 48, blood pressure 149/65, oxygen saturation 93% on BiPaP (16/6 with FIO2 of 60%). ENT: Head and neck atraumatic. There was some frothy sputum seen at the lips. LUNGS: Few crackles bibasilar. Few rhonchi bilaterally. HEART: Regular rate and rhythm. S1, S2 normal. ABDOMEN: Soft, nontender, nondistended. MUSCULOSKELETAL: Trace bilateral pedal and ankle edema. NEURO: The patient was seen moving all extremities spontaneously. SKIN: Status post recent amputation of 2 toes on the left foot. PSYCH: Initially obtunded, however, with initiation of Lasix and BiPaP appears to be more comfortable and following commands. LABORATORY DATA WBC 10, hemoglobin 9.5, platelet count 314. Sodium 149, potassium 3.3, chloride 109, carbon dioxide 22, BUN 23, creatinine 1.7, however, relatively stable. Glucose 185, AST 28, ALT 18, bilirubin 0.4. MEDICATIONS Tylenol p.r.n., DuoNeb every 4 hours, aspirin, Lipitor, Coreg, Plavix, Feosol, Lasix, hydralazine p.r.n., regular insulin sliding scale protocol, Solu-Medrol 40 mg IV every 8 hours, potassium supplementation, propanol 10 mg p.o. every 8 hours (on hold right now as the patient is relatively bradycardic). Seroquel on hold, tigecycline and linezolid. Chest x-ray showed bilateral infiltrate, cannot rule out bibasilar consolidation, right lower lobe more than left lower lobes. ASSESSMENT AND PLAN: This is a 71-year-old lady with hypoxemic respiratory failure secondary to flash pulmonary edema likely due to fluid overload (the patient had her Lasix held earlier and IV fluids started by Nephrology service). Echocardiogram done couple of days ago did not reveal any significant left ventricular systolic or diastolic dysfunction. Possibility of hypoxemic respiratory failure due to acute respiratory distress syndrome secondary to progression of underlying infection (osteomyelitis), possible, but less likely in the absence of fever and leukocytosis. That was discussed with Infectious Disease service and antibiotics were adjusted. I will also get procalcitonin level and we will repeat blood culture and urine culture. If the patient would get intubated, we will get the endotracheal aspiration for micro analysis. At present time, we will continue with conservative fluid and oxygen management. BiPaP, steroid taper, bronchodilators, antibiotics, diuretics. We will continue with intensive cardiac unit monitoring. Have low threshold for intubation. Head of bed elevated more than 35 degrees. Oral hygiene. Deep venous thrombosis and gastrointestinal prophylaxis. ccm time 40 min Don Lim MD MTDD
--- NOTE | 2017-07-23 15:17 | CP.PCM.PN ---
Subjective - Date & Time of Evaluation Date of Evaluation: 07/23/17 Time of Evaluation: 11:00 - Subjective Subjective: Patient reportedly not making much urine overnight; also agitated and pulled out her urban; respiratory distress reported after encounter and required placing on BIPAP; Objective - Vital Signs/Intake and Output Vital Signs (last 24 hours): Temp Pulse Resp BP Pulse Ox 97.4 F L 44 L 17 149/65 90 L 07/22/17 04:00 07/23/17 13:35 07/23/17 05:20 07/23/17 13:31 07/23/17 05:20 Intake and Output: 07/23/17 07/23/17 06:59 18:59 Intake Total 100 Output Total 0 Balance 100 - Medications Medications: Current Medications Acetaminophen (Tylenol 325mg Tab) 650 mg PO Q4H PRN PRN Reason: pain fever Last Admin: 07/22/17 00:05 Dose: 650 mg Albuterol/Ipratropium (Duoneb 3 Mg/0.5 Mg (3 Ml) Ud) 3 ml IH [id number] [facility] Aspirin (Aspirin Chewable) 81 mg PO DAILY [facility] Last Admin: 07/23/17 10:02 Dose: 81 mg Atorvastatin Calcium (Lipitor) 40 mg PO DIN [facility] Last Admin: 07/22/17 18:27 Dose: 40 mg Clopidogrel Bisulfate (Plavix) 75 mg PO DAILY [facility] Last Admin: 07/23/17 10:02 Dose: 75 mg Famotidine (Pepcid) 20 mg PO HS [facility] Last Admin: 07/22/17 21:48 Dose: 20 mg Ferrous Sulfate (Feosol) 324 mg PO BID [facility] Last Admin: 07/23/17 10:02 Dose: 324 mg Furosemide (Lasix) 20 mg IVP DAILY [facility] Last Admin: 07/23/17 11:39 Dose: Not Given Hydralazine HCl (Apresoline) 10 mg IVP Q6 PRN PRN Reason: SBP >160 DBP>90 Last Admin: 07/21/17 04:58 Dose: 10 mg Potassium Chloride (Potassium Chloride 10 Meq/100 Ml) 10 meq in 100 mls @ 50 mls/hr IVPB Q2H [facility] Stop: 07/23/17 16:44 Last Admin: 07/23/17 13:28 Dose: 50 mls/hr Insulin Human Regular (Humulin R Low) 0 units SC ACHS [facility] PRN Reason: Protocol Last Admin: 07/23/17 11:55 Dose: 1 units Methylprednisolone (Solu-Medrol) 40 mg IVP Q8H [facility] Last Admin: 07/23/17 14:01 Dose: 40 mg Mupirocin (Bactroban Ointment) 1 gm TOP BID [facility] Last Admin: 07/23/17 10:06 Dose: 1 appl Nifedipine (Procardia Xl) 30 mg PO DAILY [facility] Last Admin: 07/22/17 09:15 Dose: 30 mg Insulin Degludec [ Tresiba Flextouch U- 200] 30 unit SC HS [facility] Last Admin: 07/18/17 22:31 Dose: Not Given Pioglitazone HCl (Actos) 45 mg PO DAILY [facility] Propranolol HCl (Inderal) 10 mg PO Q8 [facility] Last Admin: 07/22/17 22:20 Dose: Not Given Quetiapine Fumarate (Seroquel) 12.5 mg PO [facility] PRN Reason: Protocol Last Admin: 07/22/17 21:49 Dose: 12.5 mg Sitagliptin Phosphate (Januvia) 25 mg PO DAILY [facility] Last Admin: 07/19/17 10:29 Dose: 25 mg - Labs Labs: 07/23/17 13:53 07/23/17 11:00 PT 15.1 SECONDS (9.4-12.5) H 07/20/17 09:55 INR 1.31 (0.93-1.08) H 07/20/17 09:55 APTT 37.7 Seconds (25.1-36.5) H 07/20/17 09:55 - Constitutional Appears: Agitated - Eye Exam Eye Exam: absent: Scleral icterus - ENT Exam ENT Exam: Mucous Membranes Moist - Respiratory Exam Respiratory Exam: Clear to Ausculation Bilateral. absent: Respiratory Distress - Cardiovascular Exam Cardiovascular Exam: Bradycardia, +S1, +S2 - GI/Abdominal Exam GI & Abdominal Exam: Soft. absent: Distended, Tenderness - Exam Exam: absent: Bladder Distension - Extremities Exam Additional comments: mild b/l leg edema; - Psychiatric Exam Psychiatric exam: Agitated - Skin Skin Exam: Warm. absent: Cyanosis Assessment and Plan (1) Acute renal failure Assessment & Plan: After showing improvement from ATN, now oliguric; likely due to abrupt drop in BP yesterday, patient also bradycardic; in acute hypoxemic respiratory faliure with CXR indicative of volume overload; mild hypokalemia, replenished; mild hypernatremia; with newly increased anion gap metabolic acidosis (and concomitant compensatory metabolic alkalosis due to hypercapnea); lactate normal ; possible ketosis with hyperglycemia; -holding all anti-htn agents; -agree with measures to stave off intubation (BIPAP, trial of IV lasix) -continue to avoid nephrotoxic agents; -sending UA Status: Acute (2) Respiratory failure Assessment & Plan: see above Status: Acute (3) Hypertension Assessment & Plan: Marked drop in BP after giving single dose of nifedpine XL 30 mg yesterday; holding further doses, see above; Status: Acute (4) Proteinuria Status: Acute (5) Cellulitis and abscess Status: Acute
[2017-07-23 16:19] LABS: ARTERIAL BLOOD GAS HCO3 23.2 mmol/L (21-28); ARTERIAL BLOOD GAS HEMOGLOBIN 8.7 g/dL (11.7-17.4); ARTERIAL BLOOD GAS O2 CAPACITY 12.3 mL/dl (16-24); ARTERIAL BLOOD GAS O2 CONTENT 12.3 ML/dl (15-23); ARTERIAL BLOOD GAS PCO2 44 mm/Hg (35-45); ARTERIAL BLOOD GAS PH 7.33 (7.35-7.45); ARTERIAL BLOOD GAS TCO2 24.6 mmol.L (22-28)
[2017-07-23] MEDS: Albuterol-Ipratrop 3 mg / 0.5 (3 ml) UD IH SCH ×3 (17:03→23:50)
--- NOTE | 2017-07-23 18:05 | CP.PCM.PN ---
Subjective - Date & Time of Evaluation Date of Evaluation: 07/23/17 Time of Evaluation: 17:30 - Subjective Subjective: Infectious Disease Follow Up: July 23, 2017 71 yo AA female sent from [facility] for poor responsiveness. 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 History of E. coli and enterococcus. The E. coli is ESBL+. The patient can give little history of her own. She is currently awake and alert now. The patient was on IV Vancomycin at [place]. Unclear if she was still on Meropenem there. Renal insufficiency. The patient had normal creatinine in June 2017. Still elevated creatinine. Unclear if this is secondary to several factors such as dehydration, poor appetite, and use of Vancomycin. Vancomycin remains high at 35.4 but she did get a dose in hospital early in the hospital course. At best the patient is AAO x 1. The patient has very uneven behavior... I'm not sure if this is her normal vs. AMS. Wound cultures showing gram negative rods identified as MDR Acinetobacter. Urine with yeast. Patient found unresponsive yesterday AM. The patient had rapid response and Code Stroke called. Found to be severely hypertensive yesterday AM. Taken to ICU for further care. The patient has improved since transfer to ICU and is currently awake and alert. Patient does not always make sense when speaking but that is close to her baseline. Creatinine improved a little bit to 1.7. Overnight no new issues. Patient is more or less at baseline mental status. However, late this afternoon, the patient had difficulty breathing again. Case discussed with Dr. Lim the Heel Painter. Switched Meropenem to Tygacil. Objective - Vital Signs/Intake and Output Vital Signs (last 24 hours): Temp Pulse Resp BP Pulse Ox 97.2 F L 48 L 22 141/52 L 100 07/23/17 12:00 07/23/17 16:35 07/23/17 15:20 07/23/17 15:00 07/23/17 15:20 Intake and Output: 07/23/17 07/23/17 06:59 18:59 Intake Total 100 Output Total 0 Balance 100 - Medications Medications: Current Medications Acetaminophen (Tylenol 325mg Tab) 650 mg PO Q4H PRN PRN Reason: pain fever Last Admin: 07/22/17 00:05 Dose: 650 mg Albuterol/Ipratropium (Duoneb 3 Mg/0.5 Mg (3 Ml) Ud) 3 ml IH [id number] [facility] Last Admin: 07/23/17 17:03 Dose: 3 ml Aspirin (Aspirin Chewable) 81 mg PO DAILY [facility] Last Admin: 07/23/17 10:02 Dose: 81 mg Atorvastatin Calcium (Lipitor) 40 mg PO DIN [facility] Last Admin: 07/23/17 17:15 Dose: 40 mg Clopidogrel Bisulfate (Plavix) 75 mg PO DAILY [facility] Last Admin: 07/23/17 10:02 Dose: 75 mg Famotidine (Pepcid) 20 mg PO HS [facility] Last Admin: 07/22/17 21:48 Dose: 20 mg Ferrous Sulfate (Feosol) 324 mg PO BID [facility] Last Admin: 07/23/17 17:15 Dose: 324 mg Furosemide (Lasix) 20 mg IVP DAILY [facility] Last Admin: 07/23/17 11:39 Dose: Not Given Hydralazine HCl (Apresoline) 10 mg IVP Q6 PRN PRN Reason: SBP >160 DBP>90 Last Admin: 07/21/17 04:58 Dose: 10 mg Insulin Human Regular (Humulin R Low) 0 units SC ACHS [facility] PRN Reason: Protocol Last Admin: 07/23/17 17:17 Dose: 2 units Methylprednisolone (Solu-Medrol) 40 mg IVP Q8H [facility] Last Admin: 07/23/17 14:01 Dose: 40 mg Mupirocin (Bactroban Ointment) 1 gm TOP BID [facility] Last Admin: 07/23/17 10:06 Dose: 1 appl Nifedipine (Procardia Xl) 30 mg PO DAILY [facility] Last Admin: 07/22/17 09:15 Dose: 30 mg Insulin Degludec [ Tresiba Flextouch U- 200] 30 unit SC HS [facility] Last Admin: 07/18/17 22:31 Dose: Not Given Pioglitazone HCl (Actos) 45 mg PO DAILY [facility] Propranolol HCl (Inderal) 10 mg PO Q8 [facility] Last Admin: 07/22/17 22:20 Dose: Not Given Quetiapine Fumarate (Seroquel) 12.5 mg PO HS [facility] PRN Reason: Protocol Last Admin: 07/22/17 21:49 Dose: 12.5 mg Sitagliptin Phosphate (Januvia) 25 mg PO DAILY [facility] Last Admin: 07/19/17 10:29 Dose: 25 mg - Labs Labs: 07/23/17 13:53 07/23/17 11:00 PT 15.1 SECONDS (9.4-12.5) H 07/20/17 09:55 INR 1.31 (0.93-1.08) H 07/20/17 09:55 APTT 37.7 Seconds (25.1-36.5) H 07/20/17 09:55 - Constitutional Appears: Non-toxic, No Acute Distress, Chronically Ill - Head Exam Head Exam: ATRAUMATIC, NORMOCEPHALIC - Eye Exam Eye Exam: EOMI, PERRL Pupil Exam: NORMAL ACCOMODATION, PERRL - ENT Exam ENT Exam: Mucous Membranes Moist, Normal External Ear Exam, TM's Normal Bilaterally - Neck Exam Neck Exam: Full ROM, Normal Inspection - Respiratory Exam Respiratory Exam: Decreased Breath Sounds, NORMAL BREATHING PATTERN. absent: Rales, Rhonchi, Wheezes - Cardiovascular Exam Cardiovascular Exam: REGULAR RHYTHM, RRR, +S1, +S2 - GI/Abdominal Exam GI & Abdominal Exam: Soft, Normal Bowel Sounds. absent: Distended, Tenderness - Extremities Exam Additional comments: Left foot with 3rd and 4th toe amputations. Lateral left foot ulceration full thickness. - Neurological Exam Neurological Exam: Alert, Awake, CN II-XII Intact Additional comments: AAO x 1-2 at best. - Psychiatric Exam Psychiatric exam: Normal Affect, Normal Mood - Skin Skin Exam: Intact, Normal Color Assessment and Plan - Assessment and Plan (Free Text) Assessment: 71 yo AA female with altered renal function and was poorly responsive at [facility]. The patient was on Vancomycin for antibiotic treatment. Will restart Meropenem and check Vancomycin levels fist given worsening creatinine levels. Local wound care. Still with decreased renal function despite normal values in the early part of June 2017. Likely multiple factors contributing to this including dehydration , poor oral appetite, and use of Vancomycin antibiotics. Unclear if the renal function will recover at this point... it is too early to tell. Recheck creatinine tomorrow. May need to consider Zyvox over Vancomycin for treatment given renal function. Check Vancomycin level tomorrow again. Level currently is 35.4 taken about 24 hours after the last administration of IV Vancomycin. Possible consideration of Zyvox use after Vancomycin levels normalize and if culture still suggest Enterococcus infection. Podiatry has recultured with foot. Will continue with renally dosed meropenem for now. Gram negative rods in wound cultures of the foot identified as MDR Acinetobacter. Will check with lab regarding sensitivities to additional antibiotics. For now remains on meropenem. Brought to MICU after being found unresponsive. Severely hypertensive during rapid response. After a few hours in the MICU, the patient is now awake and alert. Continuing on meropenem. The patient has been afebrile and has had no leukocytosis. No new issues overnight. Creatinine stayed at 1.7 today. No leukocytosis. The patient had difficulty breathing this afternoon. Antibiotics switched from meropenem to tigecycline for the time being. Thank you for allowing me to participate in the care of the patient, we will follow with you.
[2017-07-23 20:56] LABS: CALCIUM 8.4 mg/dL (8.4-10.5)
[2017-07-24] MEDS: Albuterol-Ipratrop 3 mg / 0.5 (3 ml) UD IH SCH ×6 (03:02→23:13)
--- NOTE | 2017-07-24 05:43 | PN ---
DATE: 07/23/2017 SUBJECTIVE: Patient was seen and examined at the bedside on 07/23/2017, looking comfortable, having BiPAP. Oxygen was dropping. Discussion done with Dr. Lim, software licensing executive. No fever, no chills. No nausea, vomiting, diarrhea. PHYSICAL EXAMINATION: GENERAL: Temperature 97.4, pulse 48, respiratory rate 17, blood pressure 108/51, pulse oximetry 90. HEENT: Head normocephalic, atraumatic. Eyes, PERRLA. Extraocular muscles intact. Conjunctivae clear. Nose patent. Mucous membrane moist. NECK: Supple. No carotid bruit. No JVD or thyromegaly. CHEST: Bilaterally symmetrical. HEART: S1 and S2 positive. LUNGS: Clear to auscultation. ABDOMEN: Soft. Bowel sounds present. No organomegaly. EXTREMITIES: Negative edema. No cyanosis. NEUROLOGIC: Patient is awake, having BiPAP. MEDICATIONS: Tylenol, aspirin, Lipitor, Coreg, Plavix, Pepcid, Feosol, Lasix, hydralazine, meropenem, insulin, Bactroban. LABORATORY DATA: White blood cells 10.1, hemoglobin 9.5, hematocrit 29.9, platelet 314. Sodium 147, potassium 3.8, BUN 19, creatinine 1.7, glucose 125. ASSESSMENT AND PLAN: Ms. Tamy Abbott is a 71-year-old female with anemia, hyperglycemia, with lateral left foot full-thickness ulceration with osteomyelitis, getting antibiotics. PICC line is put again. Patient had pulmonary hypertension while desaturating, got BiPAP by Dr. Don Lim, and was agitated last night, pulled her Pad[place] out. Mild respiratory distress reported after and required placing the BiPAP. Has acute renal insufficiency, respiratory failure, hypertension, proteinuria, cellulitis, and abscess. Plan is continue present treatment, repeat labs. Gastrointestinal and deep venous thrombosis prophylaxis. We will follow up. Deisy Gilman MD MTDD
--- NOTE | 2017-07-24 05:47 | CP.PCM.PN ---
Subjective - Date & Time of Evaluation Date of Evaluation: 07/24/17 Time of Evaluation: 05:46 - Subjective Subjective: Ms. Abbott was seen and examined at the bedside in ICU. She is awake, confused, unable to answer any wuestions. She is unable to follow all simple commands. She had episode of hypothermia last night with a temp 88.3 which prompted the staff to place warming blanket to the patient. Her current temp 97.9, with + dolls eyes of the left eye and eneven pupil size with right eye 3 mm and left eye 4 mm. She remains on a bilateral wrist restraints for patient safety. She remains on bipap machine for oxygen support , spo2-100%. She also remains on a contact isolation deur to wound infection. Objective - Vital Signs/Intake and Output Vital Signs (last 24 hours): Temp Pulse Resp BP Pulse Ox 97.9 F 84 22 134/66 100 07/24/17 05:00 07/24/17 05:00 07/24/17 05:00 07/24/17 05:00 07/24/17 05:00 Intake and Output: 07/23/17 07/24/17 18:59 06:59 Intake Total 1350 Output Total 50 Balance 1300 - Medications Medications: Current Medications Acetaminophen (Tylenol 325mg Tab) 650 mg PO Q4H PRN PRN Reason: pain fever Last Admin: 07/22/17 00:05 Dose: 650 mg Albuterol/Ipratropium (Duoneb 3 Mg/0.5 Mg (3 Ml) Ud) 3 ml IH [id number] [facility] Last Admin: 07/24/17 03:02 Dose: 3 ml Aspirin (Aspirin Chewable) 81 mg PO DAILY [facility] Last Admin: 07/23/17 10:02 Dose: 81 mg Atorvastatin Calcium (Lipitor) 40 mg PO DIN [facility] Last Admin: 07/23/17 17:15 Dose: 40 mg Clopidogrel Bisulfate (Plavix) 75 mg PO DAILY [facility] Last Admin: 07/23/17 10:02 Dose: 75 mg Famotidine (Pepcid) 20 mg PO HS [facility] Last Admin: 07/22/17 21:48 Dose: 20 mg Ferrous Sulfate (Feosol) 324 mg PO BID [facility] Last Admin: 07/23/17 17:15 Dose: 324 mg Furosemide (Lasix) 20 mg IVP DAILY [facility] Last Admin: 07/23/17 11:39 Dose: Not Given Hydralazine HCl (Apresoline) 10 mg IVP Q6 PRN PRN Reason: SBP >160 DBP>90 Last Admin: 07/23/17 23:25 Dose: 10 mg Tigecycline 50 mg/ Sodium (Chloride) 100 mls @ 100 mls/hr IVPB Q12 [facility] PRN Reason: Protocol Last Admin: 07/23/17 22:42 Dose: 100 mls/hr Insulin Human Regular (Humulin R Low) 0 units SC ACHS [facility] PRN Reason: Protocol Last Admin: 07/23/17 22:00 Dose: Not Given Methylprednisolone (Solu-Medrol) 40 mg IVP Q8H [facility] Last Admin: 07/23/17 22:45 Dose: 40 mg Mupirocin (Bactroban Ointment) 1 gm TOP BID [facility] Last Admin: 07/23/17 17:05 Dose: 1 appl Nifedipine (Procardia Xl) 30 mg PO DAILY [facility] Last Admin: 07/22/17 09:15 Dose: 30 mg Insulin Degludec [ Tresiba Flextouch U- 200] 30 unit SC HS [facility] Last Admin: 07/18/17 22:31 Dose: Not Given Pioglitazone HCl (Actos) 45 mg PO DAILY [facility] Propranolol HCl (Inderal) 10 mg PO Q8 [facility] Last Admin: 07/22/17 22:20 Dose: Not Given Quetiapine Fumarate (Seroquel) 12.5 mg PO HS [facility] PRN Reason: Protocol Last Admin: 07/22/17 21:49 Dose: 12.5 mg Sitagliptin Phosphate (Januvia) 25 mg PO DAILY [facility] Last Admin: 07/19/17 10:29 Dose: 25 mg - Labs Labs: 07/23/17 13:53 07/23/17 20:30 PT 15.1 SECONDS (9.4-12.5) H 07/20/17 09:55 INR 1.31 (0.93-1.08) H 07/20/17 09:55 APTT 37.7 Seconds (25.1-36.5) H 07/20/17 09:55 - Constitutional Appears: No Acute Distress - Head Exam Head Exam: NORMAL INSPECTION - Eye Exam Pupil Exam: Unequal Additional comments: right eye 3 mm, left eye 4 mm both are sluggish to react. - Neurological Exam Neurological Exam: Awake Neuro motor strength exam: Left Upper Extremity: 3, Right Upper Extremity: 3, Left Lower Extremity: 2/1, Right Lower Extremity: 2/1 Additional comments: She is awake with episode of confusion, unable to follow any commands. Assessment and Plan (1) Altered mental status Assessment & Plan: Case discussed with Dr. Hoyt, continue all current medical regimen. Recommend to treat any electrolyte, cbc abnormalities, and repaet CT scan of the head without contrast. Recommend head of bed elevated at least 30 degrees and glycemic control for brain perfusion. Status: Acute
[2017-07-24 06:14] LABS: ALB/GLOB RATIO 0.8 (1.1-1.8); ALBUMIN 2.8 g/dL (3.0-4.8); CALCIUM 8.3 mg/dL (8.4-10.5)
[2017-07-24 06:41] LABS: HEMOGLOBIN 9.6 g/dL (12.0-16.0); MEAN CELL VOLUME 80.2 fl (80.0-105.0); MEAN CORPUSCULAR HGB CONC 32.4 g/dl (31.0-37.0); MEAN PLATELET VOLUME 10.3 fl (7.0-11.0); RBC 3.69 10^6/uL (3.5-6.1); RED CELL DISTRIBUTION WIDTH 15.9 % (11.5-14.5); WHITE BLOOD COUNT 10.1 10^3/ul (4.5-11.0)
[2017-07-24 06:56] LABS: PH,URINE 5.5 (4.7-8.0); URINE BILIRUBIN NEGATIVE (NEGATIVE); URINE BLOOD SMALL (NEGATIVE); URINE GLUCOSE (UA) NEGATIVE (NEGATIVE); URINE LEUKOCYTE ESTERASE MODERATE Leu/uL (NEGATIVE); URINE PROTEIN 30 mg/dL (<30 mg/dL); URINE UROBILINOGEN 0.2 E.U./dL (<1 E.U./dL)
[2017-07-24] MEDS: MethylPREDNISolone 40 mg Vial IVP SCH ×3 (06:58→21:21)
[2017-07-24 07:31] LABS: URINE APPEARANCE CLEAR (CLEAR); URINE COLOR YELLOW (YELLOW)
[2017-07-24] MEDS: Insulin Reg-LOW-Coverage SC SCH ×4 (07:54→21:57)
[2017-07-24 07:59] LABS: URINE WBC 25 - 30 /hpf (0-6)
[2017-07-24 08:00] LABS: URINE BACTERIA MANY (NEG)
[2017-07-24 08:02] LABS: URINE AMORPHOUS SEDIMENT SMALL; URINE COARSE GRANULAR CAST SMALL /hpf (0-2)
[2017-07-24 09:21] LABS: ARTERIAL BLOOD GAS HCO3 19.2 mmol/L (21-28); ARTERIAL BLOOD GAS O2 SAT 99.9 % (95-98); ARTERIAL BLOOD GAS PCO2 27 mm/Hg (35-45); ARTERIAL BLOOD GAS PH 7.46 (7.35-7.45)
--- NOTE | 2017-07-24 09:25 | RAD ---
HISTORY: Evaluate for congestion COMPARISON: July 23, 2017. FINDINGS: LUNGS: Interval improvement in pulmonary edema. PLEURA: No significant pleural effusion identified, no pneumothorax apparent. CARDIOVASCULAR: Stable cardiomegaly. PICC line in satisfactory position unchanged. OSSEOUS STRUCTURES: No significant abnormalities. VISUALIZED UPPER ABDOMEN: Normal. OTHER FINDINGS: None. IMPRESSION: Improving pulmonary edema.
[2017-07-24] MEDS: Mupirocin 2% Ointment 15 GM TUBE TOP SCH ×3 (09:31→17:57)
--- NOTE | 2017-07-24 12:10 | CP.PCM.PN ---
<Alexia Demarco - Last Filed: 07/24/17 12:07> Subjective - Date & Time of Evaluation Date of Evaluation: 07/24/17 Time of Evaluation: 12:08 - Subjective Subjective: Podiatry Progress Note- Dr. Anderson 71 year old female seen and evaluated at bedside for left lateral non-healing ulceration with osteomyelitis. Patient is seen laying bed and in NAD. No pain expressed with dressing change. Objective - Vital Signs/Intake and Output Vital Signs (last 24 hours): Temp Pulse Resp BP Pulse Ox 97.9 F 88 24 178/84 H 98 07/24/17 11:11 07/24/17 11:33 07/24/17 11:11 07/24/17 11:33 07/24/17 11:11 Intake and Output: 07/24/17 07/24/17 06:59 18:59 Intake Total 100 Output Total 175 Balance -75 - Medications Medications: Current Medications Acetaminophen (Tylenol 325mg Tab) 650 mg PO Q4H PRN PRN Reason: pain fever Last Admin: 07/22/17 00:05 Dose: 650 mg Albuterol/Ipratropium (Duoneb 3 Mg/0.5 Mg (3 Ml) Ud) 3 ml IH [id number] [facility] Last Admin: 07/24/17 03:02 Dose: 3 ml Aspirin (Aspirin Chewable) 81 mg PO DAILY [facility] Last Admin: 07/24/17 09:30 Dose: 81 mg Atorvastatin Calcium (Lipitor) 40 mg PO DIN [facility] Last Admin: 07/23/17 17:15 Dose: 40 mg Clopidogrel Bisulfate (Plavix) 75 mg PO DAILY [facility] Last Admin: 07/24/17 09:29 Dose: 75 mg Famotidine (Pepcid) 20 mg PO HS [facility] Last Admin: 07/22/17 21:48 Dose: 20 mg Ferrous Sulfate (Feosol) 324 mg PO BID [facility] Last Admin: 07/24/17 09:29 Dose: 324 mg Furosemide (Lasix) 20 mg IVP DAILY [facility] Last Admin: 07/23/17 11:39 Dose: Not Given Furosemide (Lasix) 40 mg IVP DAILY [facility] Last Admin: 07/24/17 09:33 Dose: 40 mg Hydralazine HCl (Apresoline) 10 mg IVP Q6 PRN PRN Reason: SBP >160 DBP>90 Last Admin: 07/24/17 11:33 Dose: 10 mg Tigecycline 50 mg/ Sodium (Chloride) 100 mls @ 100 mls/hr IVPB Q12 [facility] PRN Reason: Protocol Last Admin: 07/24/17 09:30 Dose: 100 mls/hr Insulin Human Regular (Humulin R Low) 0 units SC ACHS [facility] PRN Reason: Protocol Last Admin: 07/24/17 11:21 Dose: 1 units Methylprednisolone (Solu-Medrol) 40 mg IVP Q8H [facility] Last Admin: 07/24/17 06:58 Dose: 40 mg Mupirocin (Bactroban Ointment) 1 gm TOP BID [facility] Last Admin: 07/24/17 11:21 Dose: 1 appl Insulin Degludec [ Tresiba Flextouch U- 200] 30 unit SC HS [facility] Last Admin: 07/18/17 22:31 Dose: Not Given Pioglitazone HCl (Actos) 45 mg PO DAILY [facility] Propranolol HCl (Inderal) 10 mg PO Q8 [facility] Last Admin: 07/22/17 22:20 Dose: Not Given Quetiapine Fumarate (Seroquel) 12.5 mg PO [facility] PRN Reason: Protocol Last Admin: 07/22/17 21:49 Dose: 12.5 mg Sitagliptin Phosphate (Januvia) 25 mg PO DAILY [facility] Last Admin: 07/19/17 10:29 Dose: 25 mg - Labs Labs: 07/24/17 05:30 07/24/17 05:30 PT 15.1 SECONDS (9.4-12.5) H 07/20/17 09:55 INR 1.31 (0.93-1.08) H 07/20/17 09:55 APTT 37.7 Seconds (25.1-36.5) H 07/20/17 09:55 - Constitutional Appears: No Acute Distress, Older Than Stated Age, Chronically Ill - Extremities Exam Additional comments: Left lower extremity focused exam: Vasc: DP and PT pulses palpable 1/4. Temperature gradient warm to cool. CFT < 3 sec x 3 digits. Mild pedal edema noted to lateral foot Derm: Open ulceration measuring approximately 7 cm x 3 cm x 0.6 cm to lateral forefoot with fibrogranular wound base. Serous drainage noted to the dressing, no malodor, no tunneling or undermining present, no odor, no streaking, no purulence Neuro: Protective sensation absent, gross sensation diminished Ortho: No tenderness to palpation of lateral forefoot ulceration - Neurological Exam Neurological Exam: Awake Assessment and Plan - Assessment and Plan (Free Text) Assessment: 71 y/o diabetic female with lateral left foot full thickness ulceration with osteomyelitis Plan: Patient seen and evaluated at bedside with attending Dr. Trujillo X-rays of L foot (-) for any acute osseous changes/acute OM MRI of L foot ordered-5th metatarsal OM Cleansed ulceration with saline solution. Dressed ulceration with bactroban, xeroform, DSD, ABD, and kerlix Arterials studies re-ordered arterial duplex of left LE If current dressing left foot dressing is inhibit arterial duplex studies to be performed, please remove current dressing and put temporarily dressing consisting large optifoam covering site of ulceration. After studies, cleansed ulceration with saline solution. Dressed ulceration with bactroban, xeroform, dsd, ABD and kerlix. Physician-nursing communication placed. Thank you. Wound culture + for Acinetobacter Baumanii Continue IV abx per ID Continue Multipodus boots at all times in bed Podiatry will continue to follow while in house <Eboni Anderson - Last Filed: 07/31/17 16:21> Objective - Vital Signs/Intake and Output Vital Signs (last 24 hours): Temp Pulse Resp BP Pulse Ox 98.1 F 77 18 148/71 95 07/31/17 06:00 07/31/17 14:35 07/31/17 06:00 07/31/17 14:35 07/31/17 06:00 Intake and Output: 07/31/17 07/31/17 06:59 18:59 Intake Total 120 480 Balance 120 480 - Medications Medications: Current Medications Acetaminophen (Tylenol 325mg Tab) 650 mg PO Q4H PRN PRN Reason: pain fever Last Admin: 07/27/17 02:58 Dose: 650 mg Albuterol/Ipratropium (Duoneb 3 Mg/0.5 Mg (3 Ml) Ud) 3 ml IH O0IMENC [facility] Last Admin: 07/31/17 15:22 Dose: 3 ml Amlodipine Besylate (Norvasc) 10 mg PO DAILY [facility] Aspirin (Aspirin Chewable) 81 mg PO DAILY [facility] Last Admin: 07/31/17 10:02 Dose: 81 mg Atorvastatin Calcium (Lipitor) 40 mg PO DIN [facility] Last Admin: 07/30/17 17:18 Dose: 40 mg Carvedilol (Coreg) 25 mg PO Q12 [facility] Last Admin: 07/31/17 12:38 Dose: 25 mg Clopidogrel Bisulfate (Plavix) 75 mg PO DAILY [facility] Last Admin: 07/31/17 10:02 Dose: 75 mg Clotrimazole (Lotrimin 1%) 1 gm TOP DAILY [facility] Last Admin: 07/31/17 10:08 Dose: 1 applic Collagenase (Santyl) 1 gm TOP DAILY [facility] Last Admin: 07/31/17 10:07 Dose: 1 applic Dextrose (Dextrose 50% Inj) 50 ml IVP PRN PRN PRN Reason: PRN For blood glucose below 80 Famotidine (Pepcid) 20 mg PO HS [facility] Last Admin: 07/30/17 21:23 Dose: 20 mg Ferrous Sulfate (Feosol) 324 mg PO BID [facility] Last Admin: 07/31/17 10:02 Dose: 324 mg Furosemide (Lasix) 20 mg PO DAILY [facility] Last Admin: 07/31/17 10:01 Dose: 20 mg Hydralazine HCl (Apresoline) 10 mg IVP Q6 PRN PRN Reason: SBP >160 DBP>90 Last Admin: 07/30/17 14:24 Dose: 10 mg Hydralazine HCl (Apresoline) 75 mg PO QID [facility] Last Admin: 07/31/17 14:35 Dose: 75 mg Micafungin Sodium 100 mg/ (Sodium Chloride) 100 mls @ 100 mls/hr IV DAILY [facility] PRN Reason: Protocol Last Admin: 07/31/17 10:02 Dose: 100 mls/hr Insulin Detemir (Levemir) 10 unit SC [facility] Last Admin: 07/30/17 23:30 Dose: 10 unit Insulin Human Regular (Humulin R Low) 0 units SC [facility] PRN Reason: Protocol Last Admin: 07/31/17 12:37 Dose: 1 units Mupirocin (Bactroban Ointment) 1 gm TOP BID [facility] Last Admin: 07/31/17 10:08 Dose: 1 appl Nystatin (Nystop Topical Powder) 1 gm TOP DAILY [facility] Last Admin: 07/31/17 10:07 Dose: 1 applic - Labs Labs: 07/31/17 12:10 07/31/17 12:10 PT 15.1 SECONDS (9.4-12.5) H 07/20/17 09:55 INR 1.31 (0.93-1.08) H 07/20/17 09:55 APTT 37.7 Seconds (25.1-36.5) H 07/20/17 09:55 Attending/Attestation - Attestation I have personally seen and examined this patient.: Yes I have fully participated in the care of the patient.: Yes I have reviewed all pertinent clinical information, including history, physical exam and plan: Yes
--- NOTE | 2017-07-24 12:23 | CT ---
PROCEDURE: CT HEAD WITHOUT CONTRAST. HISTORY: hypothermia and uneven pupils COMPARISON: 07/20/2017. CT head. Summary of findings on the comparison examination: No acute finding. 07/20/2017 MRI brain TECHNIQUE: Axial computed tomography images were obtained through the head/brain without intravenous contrast. Coronal and sagittal reconstructed images. Radiation dose: Total exam DLP = 901.45 mGy-cm. This CT exam was performed using one or more of the following dose reduction techniques: Automated exposure control, adjustment of the mA and/or kV according to patient size, and/or use of iterative reconstruction technique. FINDINGS: HEMORRHAGE: No intracranial hemorrhage. BRAIN: No mass effect or edema. Stable arachnoid cyst left temporal lobe. VENTRICLES: Unremarkable. No hydrocephalus. CALVARIUM: Unremarkable. PARANASAL SINUSES: Unremarkable as visualized. No significant inflammatory changes. MASTOID AIR CELLS: Unremarkable as visualized. No inflammatory changes. OTHER FINDINGS: None. IMPRESSION: No acute intracranial abnormalities. No significant findings to account for the clinical presentation. No significant interval change compared to the prior examination(s).
--- NOTE | 2017-07-24 12:31 | PN ---
DATE: 07/24/2017 SUBJECTIVE: The patient is seen and examined at bedside. She is somnolent, but fully responsive to touch, stimuli. PHYSICAL EXAMINATION: VITAL SIGNS: The patient is on BiPAP 18/6 with FiO2 of 50%, BiPAP rate 14. On that setting, her oxygen saturation is 100%, blood pressure 177/79, heart rate 86, respiratory rate 24. EENT: Head and neck atraumatic. LUNGS: Few crackles bibasilar. HEART: Regular rate and rhythm. S1, S2 distant. ABDOMEN: Soft, nontender, nondistended. MUSCULOSKELETAL: Trace to 1+ bilateral pedal and ankle edema. NEUROLOGIC: The patient is not observed moving all extremities spontaneously. SKIN: Moist. PSYCH: The patient is very somnolent. LABORATORY DATA: WBC 10.1, hemoglobin 9.6, platelet count 320. Sodium 147; potassium 3.8; chloride 109; carbon dioxide 22; BUN 28; creatinine 1.9, up from 1.7; glucose 161. MEDICATIONS: Tylenol p.r.n., DuoNeb every 4 hours, aspirin, Lipitor, Coreg, Plavix, Pepcid, Feosol, Lasix 40 mg IV daily, hydralazine p.r.n., regular insulin sliding scale low protocol, Solu-Medrol 40 mg IV every 8 hours, tigecycline. Chest x-ray, bilateral pulmonary congestion with right more than left. ASSESSMENT AND PLAN: This is a 71-year-old lady with hypoxemic respiratory failure secondary to cardiogenic versus noncardiogenic pulmonary edema in the setting of progression of acute kidney injury. The patient currently is on BiPAP, would have a low threshold for intubation. We are proceeding with conservative fluid management and the patient is getting diuresed with Lasix. Nephrology service is following the patient as well. The patient is on antibiotics, low-dose steroids, and bronchodilators. ID service is following the patient as well. We will maintain mean arterial pressure more than 65. We will try to avoid nephrotoxins and hyperchloremia. We will follow up today's ABG and next step will be dictated by its results as well. We will continue with deep venous thrombosis and gastrointestinal prophylaxis, dual antiplatelet therapy. Podiatry service is following the patient as well. We will continue to maintain euvolemia, euglycemia, normothermia, and oxygen saturation more than 90%. Addendum: ABG reviewed, Bipap is off, fi02-->2L NC, mental status improved, tolerates oral nutrition. Will try to get OOB to chair ccm time 40 min Don Lim MD [email or web address]
--- NOTE | 2017-07-24 18:35 | CP.PCM.PN ---
Subjective - Date & Time of Evaluation Date of Evaluation: 07/24/17 Time of Evaluation: 17:30 - Subjective Subjective: Infectious Disease Follow Up: July 24, 2017 71 yo AA female sent from [facility] for poor responsiveness. 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 History of E. coli and enterococcus. The E. coli is ESBL+. The patient can give little history of her own. She is currently awake and alert now. The patient was on IV Vancomycin at [place]. Unclear if she was still on Meropenem there. Renal insufficiency. The patient had normal creatinine in June 2017. Still elevated creatinine. Unclear if this is secondary to several factors such as dehydration, poor appetite, and use of Vancomycin. Vancomycin remains high at 35.4 but she did get a dose in hospital early in the hospital course. At best the patient is AAO x 1. The patient has very uneven behavior... I'm not sure if this is her normal vs. AMS. Wound cultures showing gram negative rods identified as MDR Acinetobacter. Urine with yeast. Patient found unresponsive yesterday AM. The patient had rapid response and Code Stroke called. Found to be severely hypertensive yesterday AM. Taken to ICU for further care. The patient has improved since transfer to ICU and is currently awake and alert. Patient does not always make sense when speaking but that is close to her baseline. Creatinine improved a little bit to 1.7. Overnight no new issues. Patient is more or less at baseline mental status. However, late yesterday afternoon, the patient had difficulty breathing again. Case discussed with Dr. Lim the [employer]. Switched Meropenem to Tygacil yesterday. She remains on BiPAP. Episodes of hypothermia last night down to 88.3. Patient remains lethargic. Objective - Vital Signs/Intake and Output Vital Signs (last 24 hours): Temp Pulse Resp BP Pulse Ox 97.9 F 88 24 178/84 H 98 07/24/17 12:00 07/24/17 11:33 07/24/17 11:11 07/24/17 11:33 07/24/17 11:11 Intake and Output: 07/24/17 07/24/17 06:59 18:59 Intake Total 100 Output Total 175 Balance -75 - Medications Medications: Current Medications Acetaminophen (Tylenol 325mg Tab) 650 mg PO Q4H PRN PRN Reason: pain fever Last Admin: 07/22/17 00:05 Dose: 650 mg Albuterol/Ipratropium (Duoneb 3 Mg/0.5 Mg (3 Ml) Ud) 3 ml IH [id number] [facility] Last Admin: 07/24/17 16:40 Dose: 3 ml Aspirin (Aspirin Chewable) 81 mg PO DAILY [facility] Last Admin: 07/24/17 09:30 Dose: 81 mg Atorvastatin Calcium (Lipitor) 40 mg PO DIN [facility] Last Admin: 07/24/17 17:58 Dose: 40 mg Clopidogrel Bisulfate (Plavix) 75 mg PO DAILY [facility] Last Admin: 07/24/17 09:29 Dose: 75 mg Famotidine (Pepcid) 20 mg PO HS [facility] Last Admin: 07/22/17 21:48 Dose: 20 mg Ferrous Sulfate (Feosol) 324 mg PO BID [facility] Last Admin: 07/24/17 17:58 Dose: 324 mg Furosemide (Lasix) 20 mg IVP DAILY [facility] Last Admin: 07/23/17 11:39 Dose: Not Given Furosemide (Lasix) 40 mg IVP DAILY [facility] Last Admin: 07/24/17 09:33 Dose: 40 mg Hydralazine HCl (Apresoline) 10 mg IVP Q6 PRN PRN Reason: SBP >160 DBP>90 Last Admin: 07/24/17 11:33 Dose: 10 mg Tigecycline 50 mg/ Sodium (Chloride) 100 mls @ 100 mls/hr IVPB Q12 [facility] PRN Reason: Protocol Last Admin: 07/24/17 09:30 Dose: 100 mls/hr Insulin Human Regular (Humulin R Low) 0 units SC ACHS [facility] PRN Reason: Protocol Last Admin: 07/24/17 17:58 Dose: 2 units Methylprednisolone (Solu-Medrol) 40 mg IVP Q8H [facility] Last Admin: 07/24/17 13:12 Dose: 40 mg Mupirocin (Bactroban Ointment) 1 gm TOP BID [facility] Last Admin: 07/24/17 17:57 Dose: 1 appl Insulin Degludec [ Tresiba Flextouch U- 200] 30 unit SC HS [facility] Last Admin: 07/18/17 22:31 Dose: Not Given Pioglitazone HCl (Actos) 45 mg PO DAILY [facility] Propranolol HCl (Inderal) 10 mg PO Q8 [facility] Last Admin: 07/22/17 22:20 Dose: Not Given Quetiapine Fumarate (Seroquel) 12.5 mg PO HS [facility] PRN Reason: Protocol Last Admin: 07/22/17 21:49 Dose: 12.5 mg Sitagliptin Phosphate (Januvia) 25 mg PO DAILY [facility] Last Admin: 07/19/17 10:29 Dose: 25 mg - Labs Labs: 07/24/17 05:30 07/24/17 05:30 PT 15.1 SECONDS (9.4-12.5) H 07/20/17 09:55 INR 1.31 (0.93-1.08) H 07/20/17 09:55 APTT 37.7 Seconds (25.1-36.5) H 07/20/17 09:55 - Constitutional Appears: Chronically Ill - Eye Exam Pupil Exam: Unequal Additional comments: right eye 3 mm, left eye 4 mm both are sluggish to react. - ENT Exam ENT Exam: Mucous Membranes Dry - Neck Exam Neck Exam: Full ROM - Respiratory Exam Respiratory Exam: Decreased Breath Sounds. absent: Rales, Rhonchi, Wheezes - Cardiovascular Exam Cardiovascular Exam: REGULAR RHYTHM, RRR, +S1, +S2 - GI/Abdominal Exam GI & Abdominal Exam: Soft, Normal Bowel Sounds. absent: Distended, Tenderness - Neurological Exam Additional comments: AAO x 1 at best. lethargic. Does not follow most commands. Assessment and Plan - Assessment and Plan (Free Text) Assessment: 71 yo AA female with altered renal function and was poorly responsive at [facility]. The patient was on Vancomycin for antibiotic treatment. Will restart Meropenem and check Vancomycin levels fist given worsening creatinine levels. Local wound care. Still with decreased renal function despite normal values in the early part of June 2017. Likely multiple factors contributing to this including dehydration , poor oral appetite, and use of Vancomycin antibiotics. Unclear if the renal function will recover at this point... it is too early to tell. Recheck creatinine tomorrow. May need to consider Zyvox over Vancomycin for treatment given renal function. Check Vancomycin level tomorrow again. Level currently is 35.4 taken about 24 hours after the last administration of IV Vancomycin. Possible consideration of Zyvox use after Vancomycin levels normalize and if culture still suggest Enterococcus infection. Podiatry has recultured with foot. Will continue with renally dosed meropenem for now. Gram negative rods in wound cultures of the foot identified as MDR Acinetobacter. Will check with lab regarding sensitivities to additional antibiotics. For now remains on meropenem. Brought to MICU after being found unresponsive. Severely hypertensive during rapid response. After a few hours in the MICU, the patient is now awake and alert. Continuing on meropenem. The patient has been afebrile and has had no leukocytosis. No new issues overnight. Creatinine stayed at 1.7 today. No leukocytosis. The patient had difficulty breathing this afternoon. Antibiotics switched from meropenem to tigecycline for the time being. Patient is still lethargic but more arousable. Hypothermic overnight. May need to consider use of Zyvox if hypothermic again. Thank you for allowing me to participate in the care of the patient, we will follow with you.
--- NOTE | 2017-07-25 01:03 | CP.PCM.PN ---
Subjective - Date & Time of Evaluation Date of Evaluation: 07/24/17 Time of Evaluation: 17:00 - Subjective Subjective: Patient with decreased urine output since yesterday; mental status improved, able to verbally respond to family; eating 50% of meals; Objective - Vital Signs/Intake and Output Vital Signs (last 24 hours): Temp Pulse Resp BP Pulse Ox 97.7 F 78 21 153/72 H 99 07/25/17 00:00 07/25/17 00:00 07/25/17 00:00 07/25/17 00:00 07/25/17 00:00 Intake and Output: 07/24/17 07/25/17 18:59 06:59 Intake Total 560 Output Total 100 Balance 460 - Medications Medications: Current Medications Acetaminophen (Tylenol 325mg Tab) 650 mg PO Q4H PRN PRN Reason: pain fever Last Admin: 07/22/17 00:05 Dose: 650 mg Albuterol/Ipratropium (Duoneb 3 Mg/0.5 Mg (3 Ml) Ud) 3 ml IH [id number] [facility] Last Admin: 07/24/17 23:13 Dose: 3 ml Aspirin (Aspirin Chewable) 81 mg PO DAILY [facility] Last Admin: 07/24/17 09:30 Dose: 81 mg Atorvastatin Calcium (Lipitor) 40 mg PO DIN [facility] Last Admin: 07/24/17 17:58 Dose: 40 mg Clopidogrel Bisulfate (Plavix) 75 mg PO DAILY [facility] Last Admin: 07/24/17 09:29 Dose: 75 mg Famotidine (Pepcid) 20 mg PO HS [facility] Last Admin: 07/24/17 21:21 Dose: 20 mg Ferrous Sulfate (Feosol) 324 mg PO BID [facility] Last Admin: 07/24/17 17:58 Dose: 324 mg Furosemide (Lasix) 20 mg IVP DAILY [facility] Last Admin: 07/23/17 11:39 Dose: Not Given Furosemide (Lasix) 40 mg IVP DAILY [facility] Last Admin: 07/24/17 09:33 Dose: 40 mg Hydralazine HCl (Apresoline) 10 mg IVP Q6 PRN PRN Reason: SBP >160 DBP>90 Last Admin: 07/24/17 11:33 Dose: 10 mg Tigecycline 50 mg/ Sodium (Chloride) 100 mls @ 100 mls/hr IVPB Q12 [facility] PRN Reason: Protocol Last Admin: 07/24/17 21:20 Dose: 100 mls/hr Insulin Human Regular (Humulin R Low) 0 units SC ACHS [facility] PRN Reason: Protocol Last Admin: 07/24/17 21:57 Dose: Not Given Methylprednisolone (Solu-Medrol) 40 mg IVP Q8H [facility] Last Admin: 07/24/17 21:21 Dose: 40 mg Mupirocin (Bactroban Ointment) 1 gm TOP BID [facility] Last Admin: 07/24/17 17:57 Dose: 1 appl Insulin Degludec [ Tresiba Flextouch U- 200] 30 unit SC HS [facility] Last Admin: 07/18/17 22:31 Dose: Not Given Pioglitazone HCl (Actos) 45 mg PO DAILY [facility] Propranolol HCl (Inderal) 10 mg PO Q8 [facility] Last Admin: 07/22/17 22:20 Dose: Not Given Quetiapine Fumarate (Seroquel) 12.5 mg PO HS [facility] PRN Reason: Protocol Last Admin: 07/22/17 21:49 Dose: 12.5 mg Sitagliptin Phosphate (Januvia) 25 mg PO DAILY [facility] Last Admin: 07/19/17 10:29 Dose: 25 mg - Labs Labs: 07/24/17 05:30 07/24/17 05:30 PT 15.1 SECONDS (9.4-12.5) H 07/20/17 09:55 INR 1.31 (0.93-1.08) H 07/20/17 09:55 APTT 37.7 Seconds (25.1-36.5) H 07/20/17 09:55 - Constitutional Appears: Non-toxic, No Acute Distress - Eye Exam Eye Exam: absent: Scleral icterus - ENT Exam ENT Exam: Mucous Membranes Moist - Respiratory Exam Respiratory Exam: Clear to Ausculation Bilateral. absent: Respiratory Distress - Cardiovascular Exam Cardiovascular Exam: RRR, +S1, +S2 - GI/Abdominal Exam GI & Abdominal Exam: Soft. absent: Distended, Tenderness - Exam Exam: absent: Bladder Distension - Extremities Exam Additional comments: mild/moderate edema; - Neurological Exam Neurological Exam: Alert, Awake Additional comments: lethargic - Psychiatric Exam Psychiatric exam: absent: Agitated - Skin Skin Exam: Warm. absent: Cyanosis Assessment and Plan (1) Acute renal failure Assessment & Plan: Oliguric renal failure despite only mild rise in serum creatinine since past 2 days; multifactorial etiology with multiple renal insults (most recently sharp drop in BP); suspect pre-renal component as well, possibly due to acute CHF exacerbation; -continue to monitor, avoid nephrotoxic insults -continue IV lasix, may need higher doses (at least 80 mg IVP) -checking urine lytes Status: Acute (2) Respiratory failure Assessment & Plan: Acute hypoxemic respiratory failure with pulm edema on CXR, improved despite not having improvement in UO; consider repeat echo to look for acute systolic dysfunction; Status: Acute (3) Hypertension Assessment & Plan: BP better controlled with decreased intake, only on prn hydralazine and IV lasix , continue same; Status: Acute (4) Proteinuria Status: Acute (5) Cellulitis and abscess Assessment & Plan: Abx changed to tigecycline, no renal dose adjustment needed; Status: Acute
[2017-07-25] MEDS: Albuterol-Ipratrop 3 mg / 0.5 (3 ml) UD IH SCH ×6 (04:27→23:37)
[2017-07-25] MEDS: MethylPREDNISolone 40 mg Vial IVP SCH ×3 (05:26→21:24)
[2017-07-25 05:50] LABS: CREATININE,RANDOM URINE 34 mg/dL
[2017-07-25 06:33] LABS: GRAN # 10.83 (1.4-6.5); GRAN % 88.9 % (50.0-68.0); HEMOGLOBIN 9.7 g/dL (12.0-16.0); LYMPH # 0.9 (1.2-3.4); LYMPH % 7.4 % (22.0-35.0); MEAN CELL VOLUME 78.7 fl (80.0-105.0); MEAN CORPUSCULAR HEMOGLOBIN 25.8 pg (25.0-35.0); MEAN CORPUSCULAR HGB CONC 32.8 g/dl (31.0-37.0); MEAN PLATELET VOLUME 10.3 fl (7.0-11.0); MONO # 0.5 (0.1-0.6); MONO % 3.7 % (1.0-6.0); RBC 3.76 10^6/uL (3.5-6.1); RED CELL DISTRIBUTION WIDTH 15.9 % (11.5-14.5); WHITE BLOOD COUNT 12.2 10^3/ul (4.5-11.0)
[2017-07-25 07:29] LABS: ALB/GLOB RATIO 0.9 (1.1-1.8); ALBUMIN 2.9 g/dL (3.0-4.8); CALCIUM 8.1 mg/dL (8.4-10.5)
--- NOTE | 2017-07-25 08:30 | PN ---
DATE: 07/22/2017 SUBJECTIVE: The patient is a 71-year-old female. The patient was seen and examined at bedside on 07/22/2017. The patient is sleepy, arousable, but as per nursing staff, the patient is confused, could not sleep last night. The patient is sleeping while on a recliner. She is not able to give review of systems, looks like she does not have fever. No nausea, vomiting, or diarrhea. She pulled her PICC line, reinserted by Dr. Johnathan Damian. PHYSICAL EXAMINATION: VITAL SIGNS: Temperature 97.4, pulse 72, respiratory rate 33, blood pressure 180/96, pulse oximetry 96%. HEENT: Head: Normocephalic and atraumatic. Eyes: Closed. Nose: Patent. NECK: Supple. No carotid bruits. No JVD or thyromegaly. CHEST: Bilaterally symmetrical. HEART: S1 and S2 positive. LUNGS: Clear to auscultation. ABDOMEN: Soft. Bowel sounds positive. No organomegaly. EXTREMITIES: No edema, no cyanosis. NEUROLOGIC: The patient is sleepy, arousable, just opens eyes and closes again. MEDICATIONS: Aspirin, Lipitor, Coreg, Plavix, Pepcid, ferrous sulfate, Lasix, hydralazine, meropenem, insulin, nifedipine, Actos, Inderal, Seroquel, Januvia. LABORATORY DATA: White blood cells 10.0, hemoglobin 9.5, hematocrit 29.9, platelets 314, BUN 19, creatinine 1.7, glucose 125. ASSESSMENT AND PLAN: The patient is a 71-year-old lady with anemia, hyperglycemia, acute renal failure, improving, relatively stable volume, status epilepticus, continue to avoid nephrotoxin medications. Proteinuria, cellulitis and abscess and osteomyelitis of the foot, on meropenem, may need increased dose as renal function improves. Hypertension, after adding nifedipine XL 30 mg and the patient need reassessment, but the blood pressure looks a bit better. Getting Lasix. The patient is legally blind. She pulled up her PICC line, replaced by Dr. Johnathan Damian. Gram-negative rods, the wound cultures of the foot identified as multi-drug resistant Acinetobacter. We will check with lab regarding the sensitivity to additional antibiotics. History of rapid response, severely hypertensive during rapid response, after a few hours transferred to ICU. Now the patient is stable there. Repeat labs. We will follow up. Deisy Gilman MD [facility]
[2017-07-25] MEDS: Insulin Reg-LOW-Coverage SC SCH ×4 (08:31→22:08)
--- NOTE | 2017-07-25 09:08 | CP.PCM.PN ---
Subjective - Date & Time of Evaluation Date of Evaluation: 07/25/17 Time of Evaluation: 08:45 - Subjective Subjective: PGY2 Neuro Progress note for Dr. Hoyt Patient seen and examined at bedside. No acute events overnight as per nursing. Patient is clinically unchanged. Patient continues to be ao x [address] Complete ROS unobtainable secondary to patient condition. Objective - Vital Signs/Intake and Output Vital Signs (last 24 hours): Temp Pulse Resp BP Pulse Ox 98.4 F 89 34 H 171/73 H 97 07/25/17 06:00 07/25/17 06:00 07/25/17 06:00 07/25/17 06:00 07/25/17 06:00 Intake and Output: 07/25/17 07/25/17 06:59 18:59 Intake Total 100 Balance 100 - Medications Medications: Current Medications Acetaminophen (Tylenol 325mg Tab) 650 mg PO Q4H PRN PRN Reason: pain fever Last Admin: 07/22/17 00:05 Dose: 650 mg Albuterol/Ipratropium (Duoneb 3 Mg/0.5 Mg (3 Ml) Ud) 3 ml IH [id number] [facility] Last Admin: 07/25/17 07:40 Dose: 3 ml Aspirin (Aspirin Chewable) 81 mg PO DAILY [facility] Last Admin: 07/24/17 09:30 Dose: 81 mg Atorvastatin Calcium (Lipitor) 40 mg PO DIN [facility] Last Admin: 07/24/17 17:58 Dose: 40 mg Clopidogrel Bisulfate (Plavix) 75 mg PO DAILY [facility] Last Admin: 07/24/17 09:29 Dose: 75 mg Famotidine (Pepcid) 20 mg PO HS [facility] Last Admin: 07/24/17 21:21 Dose: 20 mg Ferrous Sulfate (Feosol) 324 mg PO BID [facility] Last Admin: 07/24/17 17:58 Dose: 324 mg Furosemide (Lasix) 20 mg IVP DAILY [facility] Last Admin: 07/23/17 11:39 Dose: Not Given Furosemide (Lasix) 40 mg IVP DAILY [facility] Last Admin: 07/24/17 09:33 Dose: 40 mg Hydralazine HCl (Apresoline) 10 mg IVP Q6 PRN PRN Reason: SBP >160 DBP>90 Last Admin: 07/25/17 05:24 Dose: 10 mg Tigecycline 50 mg/ Sodium (Chloride) 100 mls @ 100 mls/hr IVPB Q12 [facility] PRN Reason: Protocol Last Admin: 07/24/17 21:20 Dose: 100 mls/hr Insulin Human Regular (Humulin R Low) 0 units SC ACHS [facility] PRN Reason: Protocol Last Admin: 07/25/17 08:31 Dose: 3 units Methylprednisolone (Solu-Medrol) 40 mg IVP Q8H [facility] Last Admin: 07/25/17 05:26 Dose: 40 mg Mupirocin (Bactroban Ointment) 1 gm TOP BID [facility] Last Admin: 07/24/17 17:57 Dose: 1 appl Insulin Degludec [ Tresiba Flextouch U- 200] 30 unit SC HS [facility] Last Admin: 07/18/17 22:31 Dose: Not Given Pioglitazone HCl (Actos) 45 mg PO DAILY [facility] Propranolol HCl (Inderal) 10 mg PO Q8 [facility] Last Admin: 07/22/17 22:20 Dose: Not Given Quetiapine Fumarate (Seroquel) 12.5 mg PO [facility] PRN Reason: Protocol Last Admin: 07/22/17 21:49 Dose: 12.5 mg Sitagliptin Phosphate (Januvia) 25 mg PO DAILY [facility] Last Admin: 07/19/17 10:29 Dose: 25 mg - Labs Labs: 07/25/17 05:40 07/25/17 05:40 PT 15.1 SECONDS (9.4-12.5) H 07/20/17 09:55 INR 1.31 (0.93-1.08) H 07/20/17 09:55 APTT 37.7 Seconds (25.1-36.5) H 07/20/17 09:55 - Constitutional Appears: No Acute Distress - Head Exam Head Exam: NORMAL INSPECTION - Neurological Exam Neurological Exam: Alert, Awake. absent: Oriented x3 Additional comments: unable to follow commands Assessment and Plan - Assessment and Plan (Free Text) Assessment: 71yo female PMHx HTN, DM, dementia, L foot ulceration s/p toe amputations was admitted originally on 07/15 at [facility] [place] for poor responsiveneness and cellulitis and ulceration of her left foot. Neurology consulted for Code Stroke. Plan: -patient is at baseline -repeat head CT: negative -CT head: negative -CTA head/neck: negative -MRI brain: limited motion degraded study. no evidence of acute intracranial hemorrhage or infarction. Minor chronic white matter and brainstem ischemic changes. moderate generalized volume loss. -unlikely to be a seizure or stroke -ammonia, prolactin and troponin all wnl -Echo unremarkable -f/u EEG -Seroquel 12.5mg po at night -fall precautions -seizure precautions -maintain normotension and euglycemia -HoB above 30degrees -aspiration precautions Discussed with Dr. Lai Jett PGY2
--- NOTE | 2017-07-25 09:20 | RAD ---
HISTORY: chf COMPARISON: 07/24/2017 FINDINGS: LUNGS: No active pulmonary disease. PLEURA: No significant pleural effusion identified, no pneumothorax apparent. CARDIOVASCULAR: Moderate cardiomegaly. Moderate vascular congestion. Congestion has decreased OSSEOUS STRUCTURES: No significant abnormalities. VISUALIZED UPPER ABDOMEN: Normal. OTHER FINDINGS: None. IMPRESSION: Moderate cardiomegaly. Decreased vascular congestion
[2017-07-25] MEDS: Mupirocin 2% Ointment 15 GM TUBE TOP SCH ×3 (10:00→14:45)
--- NOTE | 2017-07-25 11:04 | CP.CCUPN ---
<Cosmo Goodrich - Last Filed: 07/25/17 10:58> CCU Subjective - Physician Review Subjective (Free Text): ICU Progress Note Pt seen and examined at bedside. No acute overnight events. Patient is alert and oriented to herself, but not place or time. ROS unobtainable due to patient' s current mental status. CCU Objective - Vital Signs / Intake & Output Intake and Output (Last 8hrs): Intake & Output 07/24/17 07/25/17 07/25/17 22:59 06:59 14:59 Intake Total 560 100 Output Total 100 Balance 460 100 Intake: IV 100 100 Left Upper arm 100 100 Oral 460 Output: Urine 100 Urethral (Padilla) 100 Other: # Bowel Movements 0 - Physical Exam Head: Positive for: Atraumatic, Normocephalic Pupils: Positive for: PERRL Extroacular Muscles: Positive for: EOMI Conjunctiva: Positive for: Normal Mouth: Positive for: Dry Neck: Positive for: Normal Range of Motion Respiratory/Chest: Positive for: Clear to Auscultation, Good Air Exchange. Negative for: Respiratory Distress, Accessory Muscle Use Cardiovascular: Positive for: Regular Rate and Rhythm, Normal S1, S2. Negative for: Murmurs Abdomen: Negative for: Tenderness, Distention, Peritoneal Signs Back: Positive for: Normal Inspection Upper Extremity: Positive for: Swelling (Swelling to right hand (old)), Other Lower Extremity: Positive for: Other (Patient has amputated 3rd and 4th digits of left foot. No discharge noted.) Neurological: Positive for: GCS=15, CN II-XII Intact, Other (Patient awake, alert. No focal neurological deficits. ) Skin: Positive for: Warm, Dry, Normal Color. Negative for: Rashes Psychiatric: Positive for: Alert, Normal Insight, Normal Concentration - Medications Active Medications: Active Medications Generic Name Dose Route Start Last Admin Trade Name Freq PRN Reason Stop Dose Admin Acetaminophen 650 mg 07/15/17 02:07 07/22/17 00:05 Tylenol 325mg Tab PO 650 mg Q4H PRN Administration pain fever Albuterol/Ipratropium 3 ml 07/23/17 15:30 07/25/17 07:40 Duoneb 3 Mg/0.5 Mg (3 Ml) Ud IH 3 ml [id number] NIDHI Administration Aspirin 81 mg 07/15/17 10:00 07/24/17 09:30 Aspirin Chewable PO 81 mg DAILY NIDHI Administration Atorvastatin Calcium 40 mg 07/20/17 17:00 07/24/17 17:58 Lipitor PO 40 mg DIN NIDHI Administration Clopidogrel Bisulfate 75 mg 07/15/17 10:00 07/24/17 09:29 Plavix PO 75 mg DAILY NIDHI Administration Famotidine 20 mg 07/20/17 14:16 07/24/17 21:21 Pepcid PO 20 mg HS NIDHI Administration Ferrous Sulfate 324 mg 07/15/17 10:00 07/24/17 17:58 Feosol PO 324 mg BID NIDHI Administration Furosemide 20 mg 07/22/17 06:35 07/23/17 11:39 Lasix IVP Not Given DAILY NIDHI Furosemide 40 mg 07/24/17 10:00 07/24/17 09:33 Lasix IVP 40 mg DAILY NIDHI Administration Hydralazine HCl 10 mg 07/20/17 11:20 07/25/17 05:24 Apresoline IVP 10 mg Q6 PRN Administration SBP >160 DBP>90 Tigecycline 50 mg/ Sodium 100 mls @ 100 mls/hr 07/23/17 22:00 07/24/17 21:20 Chloride IVPB 100 mls/hr Q12 NIDHI Administration Protocol Insulin Human Regular 0 units 07/15/17 07:30 07/25/17 08:31 Humulin R Low SC 3 units ACHS [facility] Administration Protocol Methylprednisolone 40 mg 07/25/17 10:15 Solu-Medrol IVP Q12H [facility] Mupirocin 1 gm 07/21/17 18:00 07/24/17 17:57 Bactroban Ointment TOP 1 appl BID NIDHI Administration Insulin Degludec [ 30 unit 07/15/17 22:00 07/18/17 22:31 Tresiba Flextouch U- SC Not Given 200] HS [facility] Pioglitazone HCl 45 mg 07/15/17 10:00 Actos PO DAILY NIDHI Propranolol HCl 10 mg 07/15/17 06:00 07/22/17 22:20 Inderal PO Not Given Q8 NIDHI Quetiapine Fumarate 12.5 mg 07/21/17 18:00 07/22/17 21:49 Seroquel PO 12.5 mg HS [facility] Administration Protocol Sitagliptin Phosphate 25 mg 07/16/17 10:00 07/19/17 10:29 Januvia PO 25 mg DAILY NIDHI Administration - Patient Studies Lab Studies: Microbiology Studies 07/23/17 17:00 S.aureus & Coag-Neg Staph PNA FISH - Final Blood Blood Culture - Preliminary Gram Pos Cocci In Chains Gram Stain - Final 07/23/17 17:47 Blood Culture - Preliminary Blood NO GROWTH AFTER 24 HOURS Lab Studies 07/25/17 07/25/17 07/25/17 Range/Units 07:06 05:40 05:40 WBC 12.2 H D (4.5-11.0) 10^3/ul RBC 3.76 (3.5-6.1) 10^6/uL Hgb 9.7 L (12.0-16.0) g/dL Hct 29.6 L (36.0-48.0) % MCV 78.7 L (80.0-105.0) fl MCH 25.8 (25.0-35.0) pg MCHC 32.8 (31.0-37.0) g/dl RDW 15.9 H (11.5-14.5) % Plt Count 340 (120.0-450.0) 10^3/uL MPV 10.3 (7.0-11.0) fl Gran % 88.9 H (50.0-68.0) % Lymph % (Auto) 7.4 L (22.0-35.0) % Baker % (Auto) 3.7 (1.0-6.0) % Eos % (Auto) 0.0 L (1.5-5.0) % Baso % (Auto) 0.0 (0.0-3.0) % Gran # 10.83 H (1.4-6.5) Lymph # (Auto) 0.9 L (1.2-3.4) Baker # (Auto) 0.5 (0.1-0.6) Eos # (Auto) 0.0 (0.0-0.7) Baso # (Auto) 0.00 (0.0-2.0) K/mm3 Sodium 147 (132-148) mmol/L Potassium 4.2 (3.6-5.0) mmol/L Chloride 107 (98-107) mmol/L Carbon Dioxide 25 (21-33) mmol/L Anion Gap 19 (10-20) BUN 45 H (7-21) mg/dL Creatinine 2.2 H (0.7-1.2) mg/dl Est GFR ( Amer) 27 Est GFR (Non-Af Amer) 22 POC Glucose (mg/dL) 240 H (65-110) mg/dL Random Glucose 261 H (70-110) mg/dL Calcium 8.1 L (8.4-10.5) mg/dL Phosphorus 5.6 H (2.5-4.5) mg/dL Magnesium 1.7 (1.7-2.2) mg/dL Total Bilirubin 0.3 (0.2-1.3) mg/dL AST 30 (14-36) U/L ALT 22 (7-56) U/L Alkaline Phosphatase 75 (38-126) U/L Total Protein 6.4 (5.8-8.3) g/dL Albumin 2.9 L (3.0-4.8) g/dL Globulin 3.4 gm/dL Albumin/Globulin Ratio 0.9 L (1.1-1.8) Procalcitonin (0.19-0.49) NG/ML Ur Random Creatinine mg/dL Ur Random Sodium meq/L Ur Random Urea Nitrogn mg/dL 07/25/17 07/24/17 07/24/17 Range/Units 01:00 21:52 17:53 WBC (4.5-11.0) 10^3/ul RBC (3.5-6.1) 10^6/uL Hgb (12.0-16.0) g/dL Hct (36.0-48.0) % MCV (80.0-105.0) fl MCH (25.0-35.0) pg MCHC (31.0-37.0) g/dl RDW (11.5-14.5) % Plt Count (120.0-450.0) 10^3/uL MPV (7.0-11.0) fl Gran % (50.0-68.0) % Lymph % (Auto) (22.0-35.0) % Baker % (Auto) (1.0-6.0) % Eos % (Auto) (1.5-5.0) % Baso % (Auto) (0.0-3.0) % Gran # (1.4-6.5) Lymph # (Auto) (1.2-3.4) Baker # (Auto) (0.1-0.6) Eos # (Auto) (0.0-0.7) Baso # (Auto) (0.0-2.0) K/mm3 Sodium (132-148) mmol/L Potassium (3.6-5.0) mmol/L Chloride (98-107) mmol/L Carbon Dioxide (21-33) mmol/L Anion Gap (10-20) BUN (7-21) mg/dL Creatinine (0.7-1.2) mg/dl Est GFR ( Amer) Est GFR (Non-Af Amer) POC Glucose (mg/dL) 219 H 208 H (65-110) mg/dL Random Glucose (70-110) mg/dL Calcium (8.4-10.5) mg/dL Phosphorus (2.5-4.5) mg/dL Magnesium (1.7-2.2) mg/dL Total Bilirubin (0.2-1.3) mg/dL AST (14-36) U/L ALT (7-56) U/L Alkaline Phosphatase (38-126) U/L Total Protein (5.8-8.3) g/dL Albumin (3.0-4.8) g/dL Globulin gm/dL Albumin/Globulin Ratio (1.1-1.8) Procalcitonin (0.19-0.49) NG/ML Ur Random Creatinine 34 mg/dL Ur Random Sodium 108 meq/L Ur Random Urea Nitrogn 263 mg/dL 07/24/17 07/23/17 Range/Units 11:18 17:47 WBC (4.5-11.0) 10^3/ul RBC (3.5-6.1) 10^6/uL Hgb (12.0-16.0) g/dL Hct (36.0-48.0) % MCV (80.0-105.0) fl MCH (25.0-35.0) pg MCHC (31.0-37.0) g/dl RDW (11.5-14.5) % Plt Count (120.0-450.0) 10^3/uL MPV (7.0-11.0) fl Gran % (50.0-68.0) % Lymph % (Auto) (22.0-35.0) % Baker % (Auto) (1.0-6.0) % Eos % (Auto) (1.5-5.0) % Baso % (Auto) (0.0-3.0) % Gran # (1.4-6.5) Lymph # (Auto) (1.2-3.4) Baker # (Auto) (0.1-0.6) Eos # (Auto) (0.0-0.7) Baso # (Auto) (0.0-2.0) K/mm3 Sodium (132-148) mmol/L Potassium (3.6-5.0) mmol/L Chloride (98-107) mmol/L Carbon Dioxide (21-33) mmol/L Anion Gap (10-20) BUN (7-21) mg/dL Creatinine (0.7-1.2) mg/dl Est GFR ( Amer) Est GFR (Non-Af Amer) POC Glucose (mg/dL) 164 H (65-110) mg/dL Random Glucose (70-110) mg/dL Calcium (8.4-10.5) mg/dL Phosphorus (2.5-4.5) mg/dL Magnesium (1.7-2.2) mg/dL Total Bilirubin (0.2-1.3) mg/dL AST (14-36) U/L ALT (7-56) U/L Alkaline Phosphatase (38-126) U/L Total Protein (5.8-8.3) g/dL Albumin (3.0-4.8) g/dL Globulin gm/dL Albumin/Globulin Ratio (1.1-1.8) Procalcitonin 0.05 L (0.19-0.49) NG/ML Ur Random Creatinine mg/dL Ur Random Sodium meq/L Ur Random Urea Nitrogn mg/dL Laboratory Results - last 24 hr 07/23/17 07/24/17 07/24/17 17:47 11:18 17:53 WBC RBC Hgb Hct MCV MCH MCHC RDW Plt Count MPV Gran % Lymph % (Auto) Baker % (Auto) Eos % (Auto) Baso % (Auto) Gran # Lymph # (Auto) Baker # (Auto) Eos # (Auto) Baso # (Auto) Sodium Potassium Chloride Carbon Dioxide Anion Gap BUN Creatinine Est GFR ( Amer) Est GFR (Non-Af Amer) POC Glucose (mg/dL) 164 H 208 H Random Glucose Calcium Phosphorus Magnesium Total Bilirubin AST ALT Alkaline Phosphatase Total Protein Albumin Globulin Albumin/Globulin Ratio Procalcitonin 0.05 L Ur Random Creatinine Ur Random Sodium Ur Random Urea Nitrogn 07/24/17 07/25/17 07/25/17 21:52 01:00 05:40 WBC 12.2 H D RBC 3.76 Hgb 9.7 L Hct 29.6 L MCV 78.7 L MCH 25.8 MCHC 32.8 RDW 15.9 H Plt Count 340 MPV 10.3 Gran % 88.9 H Lymph % (Auto) 7.4 L Baker % (Auto) 3.7 Eos % (Auto) 0.0 L Baso % (Auto) 0.0 Gran # 10.83 H Lymph # (Auto) 0.9 L Baker # (Auto) 0.5 Eos # (Auto) 0.0 Baso # (Auto) 0.00 Sodium Potassium Chloride Carbon Dioxide Anion Gap BUN Creatinine Est GFR ( Amer) Est GFR (Non-Af Amer) POC Glucose (mg/dL) 219 H Random Glucose Calcium Phosphorus Magnesium Total Bilirubin AST ALT Alkaline Phosphatase Total Protein Albumin Globulin Albumin/Globulin Ratio Procalcitonin Ur Random Creatinine 34 Ur Random Sodium 108 Ur Random Urea Nitrogn 263 07/25/17 07/25/17 05:40 07:06 WBC RBC Hgb Hct MCV MCH MCHC RDW Plt Count MPV Gran % Lymph % (Auto) Baker % (Auto) Eos % (Auto) Baso % (Auto) Gran # Lymph # (Auto) Baker # (Auto) Eos # (Auto) Baso # (Auto) Sodium 147 Potassium 4.2 Chloride 107 Carbon Dioxide 25 Anion Gap 19 BUN 45 H Creatinine 2.2 H Est GFR ( Amer) 27 Est GFR (Non-Af Amer) 22 POC Glucose (mg/dL) 240 H Random Glucose 261 H Calcium 8.1 L Phosphorus 5.6 H Magnesium 1.7 Total Bilirubin 0.3 AST 30 ALT 22 Alkaline Phosphatase 75 Total Protein 6.4 Albumin 2.9 L Globulin 3.4 Albumin/Globulin Ratio 0.9 L Procalcitonin Ur Random Creatinine Ur Random Sodium Ur Random Urea Nitrogn Fingerstick Blood Sugar Results: 240 Assessment/Plan - Assessment and Plan (Free Text) Assessment: 71 year old female with a PMH of HTN, DM, dementia, left foot ulceration with recent toe amputations who presented [place] [facility] [place] [facility] for altered mental status and had a waking and waning course complicated by acute complete unresponsiveness with transfer to the ICU, now resolved and back at her baseline. Patient was transferred to floor. However, patient was found to be in respiratory distress and was readmitted to ICU for hypoxemic respiratory failure 2/2 pulmonary edema. Plan: Neurologic Neurologically back at her baseline Likely acute delirium vs psychogenic in etiology All imaging negative including MRI Neuro following Cardiovascular CXR shows improvement in vascular congestion Cont home meds Cont hydralazine PRN Cont home asa/plavix Maintain normotension Pulmonary BIPAP Duoneb Tapered to solumedrol 40 mg q12h Cont NC O2 Gastrointestinal On dysphagia diet, tolerating Pepcid for GI PPx Renal/Electrolytes Creatinine acutely rising Urine output poor despite Lasix Lasix 100 mg PO IVP once HSANTEL from ATN per nephrology who has been following Avoid nephrotoxic drugs Maintain fluid balance Monitor IxOs Daily weights Hematology Anemia likely multifactorial S/p 2U PRBCs Hgb stable HD stable No active bleeding Endocrinology Diabetic, will maintain RISS and accuchecks Glucose control per NICE-SUGAR trial Hold oral hypoglycemics while in the hospital Infectious Disease Blood cultures positive for gram positive cocci Known ulceration of left foot, podiatry following On Tigecycline ID following Dispo: improved for transfer back to telemetry. Pt seen and discussed in detail with Dr. Lim. Misha Goodrich, PGY1 <Don Lim - Last Filed: 07/25/17 15:37> CCU Objective - Vital Signs / Intake & Output Vital Signs (Last 4 hours): Vital Signs BP 07/25/17 12:00 181/85 H Intake and Output (Last 8hrs): Intake & Output 07/25/17 07/25/17 07/25/17 06:59 14:59 22:59 Intake Total 100 Balance 100 Intake: IV 100 Left Upper arm 100 - Medications Active Medications: Active Medications Generic Name Dose Route Start Last Admin Trade Name Freq PRN Reason Stop Dose Admin Acetaminophen 650 mg 07/15/17 02:07 07/22/17 00:05 Tylenol 325mg Tab PO 650 mg Q4H PRN Administration pain fever Albuterol/Ipratropium 3 ml 07/23/17 15:30 07/25/17 11:14 Duoneb 3 Mg/0.5 Mg (3 Ml) Ud IH 3 ml [id number] NIDHI Administration Aspirin 81 mg 07/15/17 10:00 07/25/17 10:28 Aspirin Chewable PO 81 mg DAILY NIDHI Administration Atorvastatin Calcium 40 mg 07/20/17 17:00 07/24/17 17:58 Lipitor PO 40 mg DIN NIDHI Administration Clopidogrel Bisulfate 75 mg 07/15/17 10:00 07/25/17 10:28 Plavix PO 75 mg DAILY NIDHI Administration Clotrimazole 1 gm 07/26/17 10:00 Lotrimin 1% TOP DAILY NIDHI Collagenase 1 gm 07/26/17 10:00 Santyl TOP DAILY NIDHI Famotidine 20 mg 07/20/17 14:16 07/24/17 21:21 Pepcid PO 20 mg HS NIDHI Administration Ferrous Sulfate 324 mg 07/15/17 10:00 07/25/17 10:29 Feosol PO 324 mg BID NIDHI Administration Furosemide 20 mg 07/22/17 06:35 07/23/17 11:39 Lasix IVP Not Given DAILY [facility] Furosemide 40 mg 07/24/17 10:00 07/24/17 09:33 Lasix IVP 40 mg DAILY NIDHI Administration Hydralazine HCl 10 mg 07/20/17 11:20 07/25/17 05:24 Apresoline IVP 10 mg Q6 PRN Administration SBP >160 DBP>90 Tigecycline 50 mg/ Sodium 100 mls @ 100 mls/hr 07/23/17 22:00 07/25/17 10:33 Chloride IVPB 100 mls/hr Q12 NIDHI Administration Protocol Insulin Human Regular 0 units 07/15/17 07:30 07/25/17 08:31 Humulin R Low SC 3 units ACHS NIDHI Administration Protocol Methylprednisolone 40 mg 07/25/17 10:15 07/25/17 10:32 Solu-Medrol IVP 40 mg Q12H NIDHI Administration Mupirocin 1 gm 07/21/17 18:00 07/24/17 17:57 Bactroban Ointment TOP 1 appl BID NIDHI Administration Insulin Degludec [ 30 unit 07/15/17 22:00 07/18/17 22:31 Tresiba Flextouch U- SC Not Given 200] [facility] Nystatin 1 gm 07/26/17 10:00 Nystop Topical Powder TOP DAILY [facility] Pioglitazone HCl 45 mg 07/15/17 10:00 Actos PO DAILY [facility] Propranolol HCl 10 mg 07/15/17 06:00 07/22/17 22:20 Inderal PO Not Given Q8 [facility] Quetiapine Fumarate 12.5 mg 07/21/17 18:00 07/22/17 21:49 Seroquel PO 12.5 mg HS [facility] Administration Protocol Sitagliptin Phosphate 25 mg 07/16/17 10:00 07/19/17 10:29 Januvia PO 25 mg DAILY NIDHI Administration - Patient Studies Lab Studies: Microbiology Studies 07/23/17 17:00 S.aureus & Coag-Neg Staph PNA FISH - Final Blood Blood Culture - Preliminary Gram Pos Cocci In Chains Gram Stain - Final 07/23/17 17:47 Blood Culture - Preliminary Blood NO GROWTH AFTER 24 HOURS Lab Studies 07/25/17 07/25/17 07/25/17 Range/Units 07:06 05:40 05:40 WBC 12.2 H D (4.5-11.0) 10^3/ul RBC 3.76 (3.5-6.1) 10^6/uL Hgb 9.7 L (12.0-16.0) g/dL Hct 29.6 L (36.0-48.0) % MCV 78.7 L (80.0-105.0) fl MCH 25.8 (25.0-35.0) pg MCHC 32.8 (31.0-37.0) g/dl RDW 15.9 H (11.5-14.5) % Plt Count 340 (120.0-450.0) 10^3/uL MPV 10.3 (7.0-11.0) fl Gran % 88.9 H (50.0-68.0) % Lymph % (Auto) 7.4 L (22.0-35.0) % Baker % (Auto) 3.7 (1.0-6.0) % Eos % (Auto) 0.0 L (1.5-5.0) % Baso % (Auto) 0.0 (0.0-3.0) % Gran # 10.83 H (1.4-6.5) Lymph # (Auto) 0.9 L (1.2-3.4) Baker # (Auto) 0.5 (0.1-0.6) Eos # (Auto) 0.0 (0.0-0.7) Baso # (Auto) 0.00 (0.0-2.0) K/mm3 Sodium 147 (132-148) mmol/L Potassium 4.2 (3.6-5.0) mmol/L Chloride 107 (98-107) mmol/L Carbon Dioxide 25 (21-33) mmol/L Anion Gap 19 (10-20) BUN 45 H (7-21) mg/dL Creatinine 2.2 H (0.7-1.2) mg/dl Est GFR ( Amer) 27 Est GFR (Non-Af Amer) 22 POC Glucose (mg/dL) 240 H (65-110) mg/dL Random Glucose 261 H (70-110) mg/dL Calcium 8.1 L (8.4-10.5) mg/dL Phosphorus 5.6 H (2.5-4.5) mg/dL Magnesium 1.7 (1.7-2.2) mg/dL Total Bilirubin 0.3 (0.2-1.3) mg/dL AST 30 (14-36) U/L ALT 22 (7-56) U/L Alkaline Phosphatase 75 (38-126) U/L Total Protein 6.4 (5.8-8.3) g/dL Albumin 2.9 L (3.0-4.8) g/dL Globulin 3.4 gm/dL Albumin/Globulin Ratio 0.9 L (1.1-1.8) Ur Random Creatinine mg/dL Ur Random Sodium meq/L Ur Random Urea Nitrogn mg/dL 07/25/17 07/24/17 07/24/17 Range/Units 01:00 21:52 17:53 WBC (4.5-11.0) 10^3/ul RBC (3.5-6.1) 10^6/uL Hgb (12.0-16.0) g/dL Hct (36.0-48.0) % MCV (80.0-105.0) fl MCH (25.0-35.0) pg MCHC (31.0-37.0) g/dl RDW (11.5-14.5) % Plt Count (120.0-450.0) 10^3/uL MPV (7.0-11.0) fl Gran % (50.0-68.0) % Lymph % (Auto) (22.0-35.0) % Baker % (Auto) (1.0-6.0) % Eos % (Auto) (1.5-5.0) % Baso % (Auto) (0.0-3.0) % Gran # (1.4-6.5) Lymph # (Auto) (1.2-3.4) Baker # (Auto) (0.1-0.6) Eos # (Auto) (0.0-0.7) Baso # (Auto) (0.0-2.0) K/mm3 Sodium (132-148) mmol/L Potassium (3.6-5.0) mmol/L Chloride (98-107) mmol/L Carbon Dioxide (21-33) mmol/L Anion Gap (10-20) BUN (7-21) mg/dL Creatinine (0.7-1.2) mg/dl Est GFR ( Amer) Est GFR (Non-Af Amer) POC Glucose (mg/dL) 219 H 208 H (65-110) mg/dL Random Glucose (70-110) mg/dL Calcium (8.4-10.5) mg/dL Phosphorus (2.5-4.5) mg/dL Magnesium (1.7-2.2) mg/dL Total Bilirubin (0.2-1.3) mg/dL AST (14-36) U/L ALT (7-56) U/L Alkaline Phosphatase (38-126) U/L Total Protein (5.8-8.3) g/dL Albumin (3.0-4.8) g/dL Globulin gm/dL Albumin/Globulin Ratio (1.1-1.8) Ur Random Creatinine 34 mg/dL Ur Random Sodium 108 meq/L Ur Random Urea Nitrogn 263 mg/dL Laboratory Results - last 24 hr 07/24/17 07/24/17 07/25/17 17:53 21:52 01:00 WBC RBC Hgb Hct MCV MCH MCHC RDW Plt Count MPV Gran % Lymph % (Auto) Baker % (Auto) Eos % (Auto) Baso % (Auto) Gran # Lymph # (Auto) Baker # (Auto) Eos # (Auto) Baso # (Auto) Sodium Potassium Chloride Carbon Dioxide Anion Gap BUN Creatinine Est GFR ( Amer) Est GFR (Non-Af Amer) POC Glucose (mg/dL) 208 H 219 H Random Glucose Calcium Phosphorus Magnesium Total Bilirubin AST ALT Alkaline Phosphatase Total Protein Albumin Globulin Albumin/Globulin Ratio Ur Random Creatinine 34 Ur Random Sodium 108 Ur Random Urea Nitrogn 263 07/25/17 07/25/17 07/25/17 05:40 05:40 07:06 WBC 12.2 H D RBC 3.76 Hgb 9.7 L Hct 29.6 L MCV 78.7 L MCH 25.8 MCHC 32.8 RDW 15.9 H Plt Count 340 MPV 10.3 Gran % 88.9 H Lymph % (Auto) 7.4 L Baker % (Auto) 3.7 Eos % (Auto) 0.0 L Baso % (Auto) 0.0 Gran # 10.83 H Lymph # (Auto) 0.9 L Baker # (Auto) 0.5 Eos # (Auto) 0.0 Baso # (Auto) 0.00 Sodium 147 Potassium 4.2 Chloride 107 Carbon Dioxide 25 Anion Gap 19 BUN 45 H Creatinine 2.2 H Est GFR ( Amer) 27 Est GFR (Non-Af Amer) 22 POC Glucose (mg/dL) 240 H Random Glucose 261 H Calcium 8.1 L Phosphorus 5.6 H Magnesium 1.7 Total Bilirubin 0.3 AST 30 ALT 22 Alkaline Phosphatase 75 Total Protein 6.4 Albumin 2.9 L Globulin 3.4 Albumin/Globulin Ratio 0.9 L Ur Random Creatinine Ur Random Sodium Ur Random Urea Nitrogn Attending/Attestation - Attestation I have personally seen and examined this patient.: Yes I have fully participated in the care of the patient.: Yes I have reviewed all pertinent clinical information: Yes Notes (Text): 07/25/17 15:34 71 yo female recovering from hypoxemic respiratory failure. fi02 requirement dropped down to 2L/min NC. hemodynamically and respiratory stable, CXR improved congestion. Worsening SHANTEL though, still oliguric, but no significant lites abnormalities, not fluid overload and not acidotic. Ok to downgrade to tele ccm time 40 min
--- NOTE | 2017-07-25 14:57 | CP.PCM.PN ---
<Myron Melendez - Last Filed: 07/25/17 14:53> Subjective - Date & Time of Evaluation Date of Evaluation: 07/25/17 Time of Evaluation: 14:53 - Subjective Subjective: Podiatry Progress Note- Dr. Anderson 71 year old female seen and evaluated at bedside for left lateral non-healing ulceration with osteomyelitis. Patient is seen laying bed and in NAD. Daughter at bedside during visitation. No pain expressed with dressing change. Objective - Vital Signs/Intake and Output Vital Signs (last 24 hours): Temp Pulse Resp BP Pulse Ox 98.4 F 89 34 H 171/73 H 97 07/25/17 06:00 07/25/17 06:00 07/25/17 06:00 07/25/17 06:00 07/25/17 06:00 Intake and Output: 07/25/17 07/25/17 06:59 18:59 Intake Total 100 Balance 100 - Medications Medications: Current Medications Acetaminophen (Tylenol 325mg Tab) 650 mg PO Q4H PRN PRN Reason: pain fever Last Admin: 07/22/17 00:05 Dose: 650 mg Albuterol/Ipratropium (Duoneb 3 Mg/0.5 Mg (3 Ml) Ud) 3 ml IH [id number] [facility] Last Admin: 07/25/17 11:14 Dose: 3 ml Aspirin (Aspirin Chewable) 81 mg PO DAILY [facility] Last Admin: 07/25/17 10:28 Dose: 81 mg Atorvastatin Calcium (Lipitor) 40 mg PO DIN [facility] Last Admin: 07/24/17 17:58 Dose: 40 mg Clopidogrel Bisulfate (Plavix) 75 mg PO DAILY [facility] Last Admin: 07/25/17 10:28 Dose: 75 mg Famotidine (Pepcid) 20 mg PO HS [facility] Last Admin: 07/24/17 21:21 Dose: 20 mg Ferrous Sulfate (Feosol) 324 mg PO BID [facility] Last Admin: 07/25/17 10:29 Dose: 324 mg Furosemide (Lasix) 20 mg IVP DAILY [facility] Last Admin: 07/23/17 11:39 Dose: Not Given Furosemide (Lasix) 40 mg IVP DAILY [facility] Last Admin: 07/24/17 09:33 Dose: 40 mg Hydralazine HCl (Apresoline) 10 mg IVP Q6 PRN PRN Reason: SBP >160 DBP>90 Last Admin: 07/25/17 05:24 Dose: 10 mg Tigecycline 50 mg/ Sodium (Chloride) 100 mls @ 100 mls/hr IVPB Q12 [facility] PRN Reason: Protocol Last Admin: 07/25/17 10:33 Dose: 100 mls/hr Insulin Human Regular (Humulin R Low) 0 units SC ACHS [facility] PRN Reason: Protocol Last Admin: 07/25/17 08:31 Dose: 3 units Methylprednisolone (Solu-Medrol) 40 mg IVP Q12H [facility] Last Admin: 07/25/17 10:32 Dose: 40 mg Mupirocin (Bactroban Ointment) 1 gm TOP BID [facility] Last Admin: 07/24/17 17:57 Dose: 1 appl Insulin Degludec [ Tresiba Flextouch U- 200] 30 unit SC HS [facility] Last Admin: 07/18/17 22:31 Dose: Not Given Pioglitazone HCl (Actos) 45 mg PO DAILY [facility] Propranolol HCl (Inderal) 10 mg PO Q8 [facility] Last Admin: 07/22/17 22:20 Dose: Not Given Quetiapine Fumarate (Seroquel) 12.5 mg PO [facility] PRN Reason: Protocol Last Admin: 07/22/17 21:49 Dose: 12.5 mg Sitagliptin Phosphate (Januvia) 25 mg PO DAILY [facility] Last Admin: 07/19/17 10:29 Dose: 25 mg - Labs Labs: 07/25/17 05:40 07/25/17 05:40 PT 15.1 SECONDS (9.4-12.5) H 07/20/17 09:55 INR 1.31 (0.93-1.08) H 07/20/17 09:55 APTT 37.7 Seconds (25.1-36.5) H 07/20/17 09:55 - Constitutional Appears: Non-toxic, No Acute Distress - Extremities Exam Extremities Exam: absent: Calf Tenderness Additional comments: Left lower extremity focused exam: Vasc: DP and PT pulses palpable 1/4. Temperature gradient warm to cool. CFT < 3 sec x 3 digits. Mild pedal edema noted to lateral foot Derm: Open ulceration measuring approximately 7 cm x 3 cm x 0.6 cm to lateral forefoot with fibrogranular wound base. Serous drainage noted to the dressing, no malodor, no tunneling or undermining present, no odor, no streaking, no purulence. Open plantar fissure noted to 3rd MPJ sulcus of the left foot. No clinical signs of infection. Open fissures noted to the right foot of 3rd, 4th, and 5th MPJ sulcus. No clinical signs of infection. Xerosis to the b/l foot Neuro: Protective sensation absent, gross sensation diminished Ortho: No tenderness to palpation of lateral forefoot ulceration Assessment and Plan - Assessment and Plan (Free Text) Assessment: 71 y/o diabetic female with lateral left foot full thickness ulceration with osteomyelitis and bilateral foot open fissures with likely fungal component. Plan: Patient seen and evaluated at bedside with attending Dr. Trujillo X-rays of L foot (-) for any acute osseous changes/acute OM MRI of L foot ordered-5th metatarsal OM Cleansed ulceration with saline solution. Dressed ulceration with bactroban, xeroform, DSD, ABD, and kerlix to the left Ordered Santyl -to be applied to lateral left foot ulceration with OM tomorrow Right opening fissures cleansed with betadine and dressed with dsd and kerlix Prevalon boots discontinued, too short and small for her LE. Will order the offloading boots: Flex boots to offload LE. Wear at all times while in bed. Arterials studies re-ordered arterial duplex of left LE Wound culture + for Acinetobacter Baumanii Continue IV abx per ID Ordered Nystatin powder and Lotrimin -to be applied to open fissures Podiatry will continue to follow while in house <Eboni Anderson - Last Filed: 07/31/17 16:23> Objective - Vital Signs/Intake and Output Vital Signs (last 24 hours): Temp Pulse Resp BP Pulse Ox 98.1 F 77 18 148/71 95 07/31/17 06:00 07/31/17 14:35 07/31/17 06:00 07/31/17 14:35 07/31/17 06:00 Intake and Output: 07/31/17 07/31/17 06:59 18:59 Intake Total 120 480 Balance 120 480 - Medications Medications: Current Medications Acetaminophen (Tylenol 325mg Tab) 650 mg PO Q4H PRN PRN Reason: pain fever Last Admin: 07/27/17 02:58 Dose: 650 mg Albuterol/Ipratropium (Duoneb 3 Mg/0.5 Mg (3 Ml) Ud) 3 ml IH [id number] [facility] Last Admin: 07/31/17 15:22 Dose: 3 ml Amlodipine Besylate (Norvasc) 10 mg PO DAILY [facility] Aspirin (Aspirin Chewable) 81 mg PO DAILY [facility] Last Admin: 07/31/17 10:02 Dose: 81 mg Atorvastatin Calcium (Lipitor) 40 mg PO DIN [facility] Last Admin: 07/30/17 17:18 Dose: 40 mg Carvedilol (Coreg) 25 mg PO Q12 [facility] Last Admin: 07/31/17 12:38 Dose: 25 mg Clopidogrel Bisulfate (Plavix) 75 mg PO DAILY [facility] Last Admin: 07/31/17 10:02 Dose: 75 mg Clotrimazole (Lotrimin 1%) 1 gm TOP DAILY [facility] Last Admin: 07/31/17 10:08 Dose: 1 applic Collagenase (Santyl) 1 gm TOP DAILY [facility] Last Admin: 07/31/17 10:07 Dose: 1 applic Dextrose (Dextrose 50% Inj) 50 ml IVP PRN PRN PRN Reason: PRN For blood glucose below 80 Famotidine (Pepcid) 20 mg PO HS [facility] Last Admin: 07/30/17 21:23 Dose: 20 mg Ferrous Sulfate (Feosol) 324 mg PO BID [facility] Last Admin: 07/31/17 10:02 Dose: 324 mg Furosemide (Lasix) 20 mg PO DAILY [facility] Last Admin: 07/31/17 10:01 Dose: 20 mg Hydralazine HCl (Apresoline) 10 mg IVP Q6 PRN PRN Reason: SBP >160 DBP>90 Last Admin: 07/30/17 14:24 Dose: 10 mg Hydralazine HCl (Apresoline) 75 mg PO QID [facility] Last Admin: 07/31/17 14:35 Dose: 75 mg Micafungin Sodium 100 mg/ (Sodium Chloride) 100 mls @ 100 mls/hr IV DAILY [facility] PRN Reason: Protocol Last Admin: 07/31/17 10:02 Dose: 100 mls/hr Insulin Detemir (Levemir) 10 unit SC [facility] Last Admin: 07/30/17 23:30 Dose: 10 unit Insulin Human Regular (Humulin R Low) 0 units SC [facility] PRN Reason: Protocol Last Admin: 07/31/17 12:37 Dose: 1 units Mupirocin (Bactroban Ointment) 1 gm TOP BID [facility] Last Admin: 07/31/17 10:08 Dose: 1 appl Nystatin (Nystop Topical Powder) 1 gm TOP DAILY [facility] Last Admin: 07/31/17 10:07 Dose: 1 applic - Labs Labs: 07/31/17 12:10 07/31/17 12:10 PT 15.1 SECONDS (9.4-12.5) H 07/20/17 09:55 INR 1.31 (0.93-1.08) H 07/20/17 09:55 APTT 37.7 Seconds (25.1-36.5) H 07/20/17 09:55 Attending/Attestation - Attestation I have personally seen and examined this patient.: Yes I have fully participated in the care of the patient.: Yes I have reviewed all pertinent clinical information, including history, physical exam and plan: Yes
--- NOTE | 2017-07-25 16:54 | US ---
PROCEDURE: Lower extremity AMISHA exam HISTORY: Peripheral vascular disease with pain and ulceration PHYSICIAN(S): Johnathan Damian MD. FINDINGS: The ABIs appear to be inaccurate. The waveforms are limited by artifact. The resting AMISHA's are normal: right, and left, . The brachial systolic pressures are symmetric. The low thigh PVR waveforms are limited by artifact. The initial upstrokes appear normal. The calf PVR waveforms are blunted. This is consistent with bilateral SFA disease. The ankle and metatarsal waveforms are moderately blunted and symmetric. This could represent bilateral tibial disease. IMPRESSION: 1. Very limited AMISHA exam 2. Bilateral SFA disease. 3. Bilateral tibial disease.
--- NOTE | 2017-07-25 17:11 | CP.PCM.PN ---
Subjective - Date & Time of Evaluation Date of Evaluation: 07/25/17 Time of Evaluation: 15:00 - Subjective Subjective: Infectious Disease Follow Up: July 25, 2017 71 yo AA female sent from [facility] for poor responsiveness. 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 History of E. coli and enterococcus. The E. coli is ESBL+. The patient can give little history of her own. She is currently awake and alert now. The patient was on IV Vancomycin at [place]. Unclear if she was still on Meropenem there. Renal insufficiency. The patient had normal creatinine in June 2017. Still elevated creatinine. Unclear if this is secondary to several factors such as dehydration, poor appetite, and use of Vancomycin. Vancomycin remains high at 35.4 but she did get a dose in hospital early in the hospital course. At best the patient is AAO x 1. The patient has very uneven behavior... I'm not sure if this is her normal vs. AMS. Remains agitated. Wound cultures showing gram negative rods identified as MDR Acinetobacter. Urine with yeast. Patient found unresponsive yesterday AM. The patient had rapid response and Code Stroke called. Found to be severely hypertensive yesterday AM. Taken to ICU for further care. The patient has improved since transfer to ICU and is currently awake and alert. Patient does not always make sense when speaking but that is close to her baseline. Creatinine increased to 2.2 today. Overnight no new issues. Patient is more or less at baseline mental status. However, late yesterday afternoon, the patient had difficulty breathing again. Case discussed with Dr. Lim the Team Leader/Research Psychologist. Switched Meropenem to Tygacil yesterday. She remains on BiPAP. Episodes of hypothermia two nights ago down to 88.3. Patient remains lethargic. Normal temperatures last night. Objective - Vital Signs/Intake and Output Vital Signs (last 24 hours): Temp Pulse Resp BP Pulse Ox 98.4 F 89 34 H 181/85 H 97 07/25/17 06:00 07/25/17 06:00 07/25/17 06:00 07/25/17 12:00 07/25/17 06:00 Intake and Output: 07/25/17 07/25/17 06:59 18:59 Intake Total 100 Balance 100 - Medications Medications: Current Medications Acetaminophen (Tylenol 325mg Tab) 650 mg PO Q4H PRN PRN Reason: pain fever Last Admin: 07/22/17 00:05 Dose: 650 mg Albuterol/Ipratropium (Duoneb 3 Mg/0.5 Mg (3 Ml) Ud) 3 ml IH [id number] [facility] Last Admin: 07/25/17 16:15 Dose: 3 ml Aspirin (Aspirin Chewable) 81 mg PO DAILY [facility] Last Admin: 07/25/17 10:28 Dose: 81 mg Atorvastatin Calcium (Lipitor) 40 mg PO DIN [facility] Last Admin: 07/25/17 16:36 Dose: 40 mg Clopidogrel Bisulfate (Plavix) 75 mg PO DAILY [facility] Last Admin: 07/25/17 10:28 Dose: 75 mg Clotrimazole (Lotrimin 1%) 1 gm TOP DAILY [facility] Collagenase (Santyl) 1 gm TOP DAILY [facility] Famotidine (Pepcid) 20 mg PO HS [facility] Last Admin: 07/24/17 21:21 Dose: 20 mg Ferrous Sulfate (Feosol) 324 mg PO BID [facility] Last Admin: 07/25/17 16:35 Dose: 324 mg Furosemide (Lasix) 20 mg IVP DAILY [facility] Last Admin: 07/23/17 11:39 Dose: Not Given Furosemide (Lasix) 40 mg IVP DAILY [facility] Last Admin: 07/24/17 09:33 Dose: 40 mg Hydralazine HCl (Apresoline) 10 mg IVP Q6 PRN PRN Reason: SBP >160 DBP>90 Last Admin: 07/25/17 05:24 Dose: 10 mg Tigecycline 50 mg/ Sodium (Chloride) 100 mls @ 100 mls/hr IVPB Q12 [facility] PRN Reason: Protocol Last Admin: 07/25/17 10:33 Dose: 100 mls/hr Insulin Human Regular (Humulin R Low) 0 units SC ACHS [facility] PRN Reason: Protocol Last Admin: 07/25/17 16:39 Dose: 7 units Methylprednisolone (Solu-Medrol) 40 mg IVP Q12H [facility] Stop: 07/26/17 10:15 Last Admin: 07/25/17 10:32 Dose: 40 mg Methylprednisolone (Solu-Medrol) 20 mg IVP Q12 [facility] Mupirocin (Bactroban Ointment) 1 gm TOP BID [facility] Last Admin: 07/25/17 14:45 Dose: 1 appl Insulin Degludec [ Tresiba Flextouch U- 200] 30 unit SC HS [facility] Last Admin: 07/18/17 22:31 Dose: Not Given Nystatin (Nystop Topical Powder) 1 gm TOP DAILY [facility] Pioglitazone HCl (Actos) 45 mg PO DAILY [facility] Propranolol HCl (Inderal) 10 mg PO Q8 [facility] Last Admin: 07/22/17 22:20 Dose: Not Given Quetiapine Fumarate (Seroquel) 12.[address] [facility] PRN Reason: Protocol Last Admin: 07/22/17 21:49 Dose: 12.5 mg Sitagliptin Phosphate (Januvia) 25 mg PO DAILY [facility] Last Admin: 07/19/17 10:29 Dose: 25 mg - Labs Labs: 07/25/17 05:40 07/25/17 05:40 PT 15.1 SECONDS (9.4-12.5) H 07/20/17 09:55 INR 1.31 (0.93-1.08) H 07/20/17 09:55 APTT 37.7 Seconds (25.1-36.5) H 07/20/17 09:55 - Constitutional Appears: Non-toxic, No Acute Distress, Chronically Ill - Head Exam Head Exam: ATRAUMATIC, NORMOCEPHALIC - Eye Exam Pupil Exam: Unequal Additional comments: right eye 3 mm, left eye 4 mm both are sluggish to react. - ENT Exam ENT Exam: Mucous Membranes Moist, Normal External Ear Exam, TM's Normal Bilaterally - Neck Exam Neck Exam: Full ROM, Normal Inspection - Respiratory Exam Respiratory Exam: Clear to Ausculation Bilateral, NORMAL BREATHING PATTERN. absent: Rales, Rhonchi, Wheezes - Cardiovascular Exam Cardiovascular Exam: REGULAR RHYTHM, RRR, +S1, +S2 - GI/Abdominal Exam GI & Abdominal Exam: Soft, Normal Bowel Sounds. absent: Distended, Tenderness - Extremities Exam Extremities Exam: Full ROM, Normal Inspection - Neurological Exam Neurological Exam: Alert, Awake, CN II-XII Intact Additional comments: AAO x 1 at best. - Psychiatric Exam Psychiatric exam: Agitated - Skin Skin Exam: Intact, Normal Color Assessment and Plan - Assessment and Plan (Free Text) Assessment: 71 yo AA female with altered renal function and was poorly responsive at [facility]. The patient was on Vancomycin for antibiotic treatment. Will restart Meropenem and check Vancomycin levels fist given worsening creatinine levels. Local wound care. Still with decreased renal function despite normal values in the early part of June 2017. Likely multiple factors contributing to this including dehydration , poor oral appetite, and use of Vancomycin antibiotics. Unclear if the renal function will recover at this point... it is too early to tell. Recheck creatinine tomorrow. May need to consider Zyvox over Vancomycin for treatment given renal function. Check Vancomycin level tomorrow again. Level currently is 35.4 taken about 24 hours after the last administration of IV Vancomycin. Possible consideration of Zyvox use after Vancomycin levels normalize and if culture still suggest Enterococcus infection. Podiatry has recultured with foot. Will continue with renally dosed meropenem for now. Gram negative rods in wound cultures of the foot identified as MDR Acinetobacter. Will check with lab regarding sensitivities to additional antibiotics. For now remains on meropenem. Brought to MICU after being found unresponsive. Severely hypertensive during rapid response. After a few hours in the MICU, the patient is now awake and alert. Continuing on meropenem. The patient has been afebrile and has had no leukocytosis. No new issues overnight. Creatinine stayed at 1.7 today. No leukocytosis. The patient had difficulty breathing this afternoon. Antibiotics switched from meropenem to tigecycline for the time being. Patient is still lethargic but more arousable. Hypothermic two nights ago... normal temperatures overnight. On Zyvox and Meropenem for IV antibiotics. Awaiting final blood cultures ( coagulase positive cocci in clusters). Thank you for allowing me to participate in the care of the patient, we will follow with you.
--- NOTE | 2017-07-25 18:15 | CP.PCM.PN ---
Subjective - Date & Time of Evaluation Date of Evaluation: 07/24/17 Time of Evaluation: 12:00 - Subjective Subjective: Patient consuming less than half of diet; otherwise, no complaints; urine output improving; Objective - Vital Signs/Intake and Output Vital Signs (last 24 hours): Temp Pulse Resp BP Pulse Ox 98.4 F 89 34 H 181/85 H 97 07/25/17 06:00 07/25/17 06:00 07/25/17 06:00 07/25/17 12:00 07/25/17 06:00 Intake and Output: 07/25/17 07/25/17 06:59 18:59 Intake Total 100 Balance 100 - Medications Medications: Current Medications Acetaminophen (Tylenol 325mg Tab) 650 mg PO Q4H PRN PRN Reason: pain fever Last Admin: 07/22/17 00:05 Dose: 650 mg Albuterol/Ipratropium (Duoneb 3 Mg/0.5 Mg (3 Ml) Ud) 3 ml IH [id number] [facility] Last Admin: 07/25/17 16:15 Dose: 3 ml Aspirin (Aspirin Chewable) 81 mg PO DAILY [facility] Last Admin: 07/25/17 10:28 Dose: 81 mg Atorvastatin Calcium (Lipitor) 40 mg PO DIN [facility] Last Admin: 07/25/17 16:36 Dose: 40 mg Clopidogrel Bisulfate (Plavix) 75 mg PO DAILY [facility] Last Admin: 07/25/17 10:28 Dose: 75 mg Clotrimazole (Lotrimin 1%) 1 gm TOP DAILY [facility] Collagenase (Santyl) 1 gm TOP DAILY [facility] Famotidine (Pepcid) 20 mg PO HS [facility] Last Admin: 07/24/17 21:21 Dose: 20 mg Ferrous Sulfate (Feosol) 324 mg PO BID [facility] Last Admin: 07/25/17 16:35 Dose: 324 mg Furosemide (Lasix) 20 mg IVP DAILY [facility] Last Admin: 07/23/17 11:39 Dose: Not Given Furosemide (Lasix) 40 mg IVP DAILY [facility] Last Admin: 07/24/17 09:33 Dose: 40 mg Hydralazine HCl (Apresoline) 10 mg IVP Q6 PRN PRN Reason: SBP >160 DBP>90 Last Admin: 07/25/17 05:24 Dose: 10 mg Hydralazine HCl (Apresoline) 25 mg PO QID [facility] Tigecycline 50 mg/ Sodium (Chloride) 100 mls @ 100 mls/hr IVPB Q12 [facility] PRN Reason: Protocol Last Admin: 07/25/17 10:33 Dose: 100 mls/hr Insulin Human Regular (Humulin R Low) 0 units SC ACHS [facility] PRN Reason: Protocol Last Admin: 07/25/17 16:39 Dose: 7 units Methylprednisolone (Solu-Medrol) 40 mg IVP Q12H [facility] Stop: 07/26/17 10:15 Last Admin: 07/25/17 10:32 Dose: 40 mg Methylprednisolone (Solu-Medrol) 20 mg IVP Q12 [facility] Mupirocin (Bactroban Ointment) 1 gm TOP BID [facility] Last Admin: 07/25/17 14:45 Dose: 1 appl Insulin Degludec [ Tresiba Flextouch U- 200] 30 unit SC HS [facility] Last Admin: 07/18/17 22:31 Dose: Not Given Nystatin (Nystop Topical Powder) 1 gm TOP DAILY [facility] Pioglitazone HCl (Actos) 45 mg PO DAILY [facility] Propranolol HCl (Inderal) 10 mg PO Q8 [facility] Last Admin: 07/22/17 22:20 Dose: Not Given Quetiapine Fumarate (Seroquel) 12.5 mg PO HS [facility] PRN Reason: Protocol Last Admin: 07/22/17 21:49 Dose: 12.5 mg Sitagliptin Phosphate (Januvia) 25 mg PO DAILY [facility] Last Admin: 07/19/17 10:29 Dose: 25 mg - Labs Labs: 07/25/17 05:40 07/25/17 05:40 PT 15.1 SECONDS (9.4-12.5) H 07/20/17 09:55 INR 1.31 (0.93-1.08) H 07/20/17 09:55 APTT 37.7 Seconds (25.1-36.5) H 07/20/17 09:55 - Constitutional Appears: Non-toxic, No Acute Distress - Eye Exam Eye Exam: Normal appearance. absent: Scleral icterus - ENT Exam ENT Exam: Mucous Membranes Moist - Respiratory Exam Respiratory Exam: Clear to Ausculation Bilateral. absent: Respiratory Distress - Cardiovascular Exam Cardiovascular Exam: RRR, +S1, +S2 - GI/Abdominal Exam GI & Abdominal Exam: Soft. absent: Distended, Tenderness - Extremities Exam Additional comments: mild/moderate b/l leg edema - Neurological Exam Neurological Exam: Alert, Awake - Psychiatric Exam Psychiatric exam: absent: Agitated - Skin Skin Exam: Warm. absent: Cyanosis Assessment and Plan (1) Acute renal failure Assessment & Plan: ATN, oliguric renal failure, now showing signs of recovery with increasing urine output even before lasix given today; stable electrolyte status; volume excess on exam/CXR; -hold further lasix doses and monitor for polyuric phase of recovery; -continue to avoid nephrotoxic agents; Status: Acute (2) Respiratory failure Assessment & Plan: CXR/sympotmatic improvement overall; will benefit from diuresis; Status: Acute (3) Hypertension Assessment & Plan: BP elevated but better controlled with SBP in 160's; keeping on standing dose of PO hydralazine 25 mg qid; will avoid drastic drops in BP; Status: Acute (4) Proteinuria Status: Acute (5) Cellulitis and abscess Assessment & Plan: On tygecil, on renal dose adjustment needed; Status: Acute
[2017-07-26] MEDS: Sodium Chloride 0.45% 1,000 ML IV SCH ×2 (02:05→15:15)
[2017-07-26] MEDS: Albuterol-Ipratrop 3 mg / 0.5 (3 ml) UD IH SCH ×5 (03:22→20:05)
[2017-07-26 06:35] LABS: HEMOGLOBIN 9.2 g/dL (12.0-16.0); MEAN CELL VOLUME 79.5 fl (80.0-105.0); MEAN CORPUSCULAR HEMOGLOBIN 25.8 pg (25.0-35.0); MEAN CORPUSCULAR HGB CONC 32.5 g/dl (31.0-37.0); RBC 3.56 10^6/uL (3.5-6.1); RED CELL DISTRIBUTION WIDTH 16.2 % (11.5-14.5); WHITE BLOOD COUNT 11.6 10^3/ul (4.5-11.0)
[2017-07-26 07:19] LABS: ALB/GLOB RATIO 0.9 (1.1-1.8); ALBUMIN 2.9 g/dL (3.0-4.8); CALCIUM 8.1 mg/dL (8.4-10.5)
--- NOTE | 2017-07-26 07:47 | CP.PCM.PN ---
Subjective - Date & Time of Evaluation Date of Evaluation: 07/26/17 Time of Evaluation: 09:00 - Subjective Subjective: PGY2 Neuro progress note for Dr. Maravilla Patient seen and examined at bedside. Nursing reports no acute events overnight. Patient is ao x [address] and responds appropriately to questioning. She denied acute complaints of headache, dizziness, chest pain, SOB , abd pain, bowel/bladder complaints. Patient is moving all 4 extremities and following simple commands. Objective - Vital Signs/Intake and Output Vital Signs (last 24 hours): Temp Pulse Resp BP Pulse Ox 99.2 F 77 11 L 127/58 L 100 07/25/17 16:00 07/25/17 23:46 07/25/17 23:00 07/25/17 23:00 07/25/17 23:00 - Medications Medications: Current Medications Acetaminophen (Tylenol 325mg Tab) 650 mg PO Q4H PRN PRN Reason: pain fever Last Admin: 07/22/17 00:05 Dose: 650 mg Albuterol/Ipratropium (Duoneb 3 Mg/0.5 Mg (3 Ml) Ud) 3 ml IH [id number] [facility] Last Admin: 07/26/17 06:57 Dose: 3 ml Aspirin (Aspirin Chewable) 81 mg PO DAILY [facility] Last Admin: 07/25/17 10:28 Dose: 81 mg Atorvastatin Calcium (Lipitor) 40 mg PO DIN [facility] Last Admin: 07/25/17 16:36 Dose: 40 mg Clopidogrel Bisulfate (Plavix) 75 mg PO DAILY [facility] Last Admin: 07/25/17 10:28 Dose: 75 mg Clotrimazole (Lotrimin 1%) 1 gm TOP DAILY [facility] Collagenase (Santyl) 1 gm TOP DAILY [facility] Famotidine (Pepcid) 20 mg PO HS [facility] Last Admin: 07/25/17 21:22 Dose: 20 mg Ferrous Sulfate (Feosol) 324 mg PO BID [facility] Last Admin: 07/25/17 16:35 Dose: 324 mg Furosemide (Lasix) 20 mg IVP DAILY [facility] Last Admin: 07/23/17 11:39 Dose: Not Given Furosemide (Lasix) 40 mg IVP DAILY [facility] Last Admin: 07/24/17 09:33 Dose: 40 mg Hydralazine HCl (Apresoline) 10 mg IVP Q6 PRN PRN Reason: SBP >160 DBP>90 Last Admin: 07/25/17 20:13 Dose: 10 mg Hydralazine HCl (Apresoline) 25 mg PO QID [facility] Last Admin: 07/25/17 21:25 Dose: 25 mg Tigecycline 50 mg/ Sodium (Chloride) 100 mls @ 100 mls/hr IVPB Q12 [facility] PRN Reason: Protocol Last Admin: 07/25/17 21:23 Dose: 100 mls/hr Sodium Chloride (Sodium Chloride 0.45%) 1,000 mls @ 75 mls/hr IV .[id number] [facility] Last Admin: 07/26/17 02:05 Dose: 75 mls/hr Insulin Human Regular (Humulin R Low) 0 units SC ACHS [facility] PRN Reason: Protocol Last Admin: 07/25/17 22:08 Dose: Not Given Methylprednisolone (Solu-Medrol) 40 mg IVP Q12H [facility] Stop: 07/26/17 10:15 Last Admin: 07/25/17 21:24 Dose: 40 mg Methylprednisolone (Solu-Medrol) 20 mg IVP Q12 [facility] Mupirocin (Bactroban Ointment) 1 gm TOP BID [facility] Last Admin: 07/25/17 14:45 Dose: 1 appl Insulin Degludec [ Tresiba Flextouch U- 200] 30 unit SC [facility] Last Admin: 07/18/17 22:31 Dose: Not Given Nystatin (Nystop Topical Powder) 1 gm TOP DAILY [facility] Pioglitazone HCl (Actos) 45 mg PO DAILY [facility] Propranolol HCl (Inderal) 10 mg PO Q8 [facility] Last Admin: 07/22/17 22:20 Dose: Not Given Quetiapine Fumarate (Seroquel) 12.5 mg PO HS [facility] PRN Reason: Protocol Last Admin: 07/22/17 21:49 Dose: 12.5 mg Sitagliptin Phosphate (Januvia) 25 mg PO DAILY [facility] Last Admin: 07/19/17 10:29 Dose: 25 mg - Labs Labs: 07/26/17 05:30 07/26/17 05:30 PT 15.1 SECONDS (9.4-12.5) H 07/20/17 09:55 INR 1.31 (0.93-1.08) H 07/20/17 09:55 APTT 37.7 Seconds (25.1-36.5) H 07/20/17 09:55 - Constitutional Appears: Non-toxic, No Acute Distress - Head Exam Head Exam: ATRAUMATIC, NORMAL INSPECTION, NORMOCEPHALIC - Eye Exam Eye Exam: Normal appearance. absent: Conjunctival injection, Scleral icterus - ENT Exam ENT Exam: Mucous Membranes Moist - Respiratory Exam Respiratory Exam: NORMAL BREATHING PATTERN. absent: Accessory Muscle Use, Respiratory Distress - Cardiovascular Exam Cardiovascular Exam: +S1, +S2 - Extremities Exam Extremities Exam: Normal Capillary Refill, Normal Inspection - Neurological Exam Neurological Exam: Alert, Awake. absent: Oriented x3 (ao x 2) Neuro motor strength exam: Left Upper Extremity: 5, Right Upper Extremity: 5, Left Lower Extremity: 5, Right Lower Extremity: 5 - Psychiatric Exam Psychiatric exam: Normal Affect, Normal Mood - Skin Skin Exam: Dry, Intact Assessment and Plan - Assessment and Plan (Free Text) Assessment: 71yo female PMHx HTN, DM, dementia, L foot ulceration s/p toe amputations was admitted originally on 07/15 at [facility] for poor responsiveneness and cellulitis and ulceration of her left foot. Neurology consulted for Code Stroke. Plan: -patient is at baseline -repeat head CT: negative -CT head: negative -CTA head/neck: negative -MRI brain: limited motion degraded study. no evidence of acute intracranial hemorrhage or infarction. Minor chronic white matter and brainstem ischemic changes. moderate generalized volume loss. -unlikely to be a seizure or stroke -ammonia, prolactin and troponin all wnl -Echo unremarkable -EEG unremarkable -Seroquel 12.5mg po at night -fall precautions -seizure precautions -maintain normotension and euglycemia -HoB above 30degrees -aspiration precautions Neurology will sign off at this time Please reconsult as needed Discussed with Dr. Taiwo Jett PGY2
[2017-07-26] MEDS: Insulin Reg-LOW-Coverage SC SCH ×4 (07:56→22:00)
[2017-07-26] MEDS: Nystatin 100,000 Units/gm Topical Pow(15 gm) TOP SCH (09:34)
[2017-07-26] MEDS: Clotrimazole 1% Cream(30 gm) TOP SCH (09:34)
[2017-07-26] MEDS: MethylPREDNISolone 40 mg Vial IVP SCH ×2 (09:35→22:11)
[2017-07-26] MEDS: Mupirocin 2% Ointment 15 GM TUBE TOP SCH ×2 (10:19→17:32)
[2017-07-26] MEDS: Collagenase 250 Units/gm Ointment(30 gm) TOP SCH (10:20)
--- NOTE | 2017-07-26 15:23 | CP.PCM.PN ---
<Myron Melendez - Last Filed: 07/26/17 15:23> Subjective - Date & Time of Evaluation Date of Evaluation: 07/26/17 Time of Evaluation: 15:19 - Subjective Subjective: Podiatry Progress Note- Dr. Trujillo 71 year old female seen and evaluated at bedside for left lateral non-healing ulceration with osteomyelitis and bilaterally open fissures at the digits. Patient is seen laying comfortably in bed and in NAD. Patient is more awake and alert today compared to yesterday. Reports that she is doing good. Denies any pain. No new pedal complaints Objective - Vital Signs/Intake and Output Vital Signs (last 24 hours): Temp Pulse Resp BP Pulse Ox 98.1 F 82 24 153/78 H 100 07/26/17 07:30 07/26/17 14:36 07/26/17 14:00 07/26/17 14:36 07/26/17 14:00 - Medications Medications: Current Medications Acetaminophen (Tylenol 325mg Tab) 650 mg PO Q4H PRN PRN Reason: pain fever Last Admin: 07/22/17 00:05 Dose: 650 mg Albuterol/Ipratropium (Duoneb 3 Mg/0.5 Mg (3 Ml) Ud) 3 ml IH [id number] [facility] Last Admin: 07/26/17 14:55 Dose: 3 ml Aspirin (Aspirin Chewable) 81 mg PO DAILY [facility] Last Admin: 07/26/17 09:35 Dose: 81 mg Atorvastatin Calcium (Lipitor) 40 mg PO DIN [facility] Last Admin: 07/25/17 16:36 Dose: 40 mg Clopidogrel Bisulfate (Plavix) 75 mg PO DAILY [facility] Last Admin: 07/26/17 09:35 Dose: 75 mg Clotrimazole (Lotrimin 1%) 1 gm TOP DAILY [facility] Last Admin: 07/26/17 09:34 Dose: 1 applic Collagenase (Santyl) 1 gm TOP DAILY [facility] Last Admin: 07/26/17 10:20 Dose: Not Given Famotidine (Pepcid) 20 mg PO HS [facility] Last Admin: 07/25/17 21:22 Dose: 20 mg Ferrous Sulfate (Feosol) 324 mg PO BID [facility] Last Admin: 07/26/17 09:34 Dose: 324 mg Furosemide (Lasix) 20 mg IVP DAILY [facility] Last Admin: 07/23/17 11:39 Dose: Not Given Furosemide (Lasix) 40 mg IVP DAILY [facility] Last Admin: 07/24/17 09:33 Dose: 40 mg Hydralazine HCl (Apresoline) 10 mg IVP Q6 PRN PRN Reason: SBP >160 DBP>90 Last Admin: 07/25/17 20:13 Dose: 10 mg Hydralazine HCl (Apresoline) 25 mg PO QID [facility] Last Admin: 07/26/17 14:36 Dose: 25 mg Tigecycline 50 mg/ Sodium (Chloride) 100 mls @ 100 mls/hr IVPB Q12 [facility] PRN Reason: Protocol Last Admin: 07/26/17 09:37 Dose: 100 mls/hr Sodium Chloride (Sodium Chloride 0.45%) 1,000 mls @ 75 mls/hr IV .[id number] [facility] Last Admin: 07/26/17 02:05 Dose: 75 mls/hr Insulin Human Regular (Humulin R Low) 0 units SC ACHS [facility] PRN Reason: Protocol Last Admin: 07/26/17 11:48 Dose: 2 units Methylprednisolone (Solu-Medrol) 20 mg IVP Q12 [facility] Mupirocin (Bactroban Ointment) 1 gm TOP BID [facility] Last Admin: 07/26/17 10:19 Dose: Not Given Insulin Degludec [ Tresiba Flextouch U- 200] 30 unit SC HS [facility] Last Admin: 07/18/17 22:31 Dose: Not Given Nystatin (Nystop Topical Powder) 1 gm TOP DAILY [facility] Last Admin: 07/26/17 09:34 Dose: 1 applic Pioglitazone HCl (Actos) 45 mg PO DAILY [facility] Propranolol HCl (Inderal) 10 mg PO Q8 [facility] Last Admin: 07/22/17 22:20 Dose: Not Given Quetiapine Fumarate (Seroquel) 12.5 mg PO HS [facility] PRN Reason: Protocol Last Admin: 07/22/17 21:49 Dose: 12.5 mg Sitagliptin Phosphate (Januvia) 25 mg PO DAILY [facility] Last Admin: 07/19/17 10:29 Dose: 25 mg - Labs Labs: 07/26/17 05:30 07/26/17 05:30 PT 15.1 SECONDS (9.4-12.5) H 07/20/17 09:55 INR 1.31 (0.93-1.08) H 07/20/17 09:55 APTT 37.7 Seconds (25.1-36.5) H 07/20/17 09:55 - Constitutional Appears: Well, Non-toxic, No Acute Distress - Extremities Exam Extremities Exam: absent: Calf Tenderness Additional comments: Lower extremity focused exam: Vasc: DP and PT pulses palpable 1/4. Temperature gradient warm to cool. CFT < 3 sec x 3 digits. Mild pedal edema noted to lateral foot Derm: Open ulceration measuring approximately 7 cm x 3 cm x 0.6 cm to lateral forefoot with fibrogranular wound base. Serous drainage noted to the dressing, no malodor, no tunneling or undermining present, no odor, no streaking, no purulence. Open plantar fissure noted to 3rd MPJ sulcus of the left foot. No clinical signs of infection. Open fissures noted to the right foot of 3rd, 4th, and 5th MPJ sulcus. No clinical signs of infection. Xerosis to the b/l foot Neuro: Protective sensation absent, gross sensation diminished Ortho: No tenderness to palpation of lateral forefoot ulceration - Neurological Exam Neurological Exam: Alert, Awake - Psychiatric Exam Psychiatric exam: Normal Affect, Normal Mood Assessment and Plan - Assessment and Plan (Free Text) Assessment: 71 y/o diabetic female with lateral left foot full thickness ulceration with osteomyelitis and bilateral foot open fissures with likely fungal component. Plan: Patient seen and evaluated at bedside with attending Dr. Trujillo X-rays of L foot (-) for any acute osseous changes/acute OM MRI of L foot ordered-5th metatarsal OM Cleansed ulceration with saline solution. Dressed right lateral ulceration with Santly, xeroform, DSD, ABD, and kerlix to the left Right opening fissures cleansed and applied bactroban and dsd Prevalon boots discontinued, too short and small for her LE. Will order the offloading boots: Flex boots to offload LE. Wear at all times while in bed. Arterials studies re-ordered arterial duplex of left LE Wound culture + for Acinetobacter Baumanii Continue IV abx per ID Ordered Nystatin powder and Lotrimin -to be applied to open fissures Podiatry will continue to follow while in house <Harrison Trujillo - Last Filed: 07/29/17 11:14> Objective - Vital Signs/Intake and Output Vital Signs (last 24 hours): Temp Pulse Resp BP Pulse Ox 97.5 F L 71 20 176/73 H 97 07/29/17 06:00 07/29/17 06:00 07/29/17 06:00 07/29/17 06:00 07/29/17 06:00 Intake and Output: 07/29/17 07/29/17 06:59 18:59 Intake Total 660 Balance 660 - Medications Medications: Current Medications Acetaminophen (Tylenol 325mg Tab) 650 mg PO Q4H PRN PRN Reason: pain fever Last Admin: 07/27/17 02:58 Dose: 650 mg Albuterol/Ipratropium (Duoneb 3 Mg/0.5 Mg (3 Ml) Ud) 3 ml IH [id number] [facility] Last Admin: 07/29/17 07:21 Dose: 3 ml Aspirin (Aspirin Chewable) 81 mg PO DAILY [facility] Last Admin: 07/28/17 10:00 Dose: 81 mg Atorvastatin Calcium (Lipitor) 40 mg PO DIN [facility] Last Admin: 07/28/17 18:07 Dose: 40 mg Carvedilol (Coreg) 12.5 mg PO Q12H [facility] Last Admin: 07/28/17 20:50 Dose: 12.5 mg Clopidogrel Bisulfate (Plavix) 75 mg PO DAILY [facility] Last Admin: 07/28/17 10:03 Dose: 75 mg Clotrimazole (Lotrimin 1%) 1 gm TOP DAILY [facility] Last Admin: 07/28/17 10:07 Dose: 1 applic Collagenase (Santyl) 1 gm TOP DAILY [facility] Last Admin: 07/27/17 10:28 Dose: Not Given Famotidine (Pepcid) 20 mg PO HS [facility] Last Admin: 07/28/17 21:02 Dose: 20 mg Ferrous Sulfate (Feosol) 324 mg PO BID [facility] Last Admin: 07/28/17 18:07 Dose: 324 mg Furosemide (Lasix) 20 mg IVP 0600 [facility] Hydralazine HCl (Apresoline) 10 mg IVP Q6 PRN PRN Reason: SBP >160 DBP>90 Last Admin: 07/27/17 04:20 Dose: 10 mg Hydralazine HCl (Apresoline) 75 mg PO QID [facility] Daptomycin 530 mg/ Sodium (Chloride) 100 mls @ 200 mls/hr IV Q48H [facility] Stop: 07/31/17 17:46 Last Admin: 07/28/17 18:07 Dose: 200 mls/hr Micafungin Sodium 100 mg/ (Sodium Chloride) 100 mls @ 100 mls/hr IV DAILY [facility] PRN Reason: Protocol Last Admin: 07/28/17 10:02 Dose: 100 mls/hr Insulin Human Regular (Humulin R Low) 0 units SC ACHS [facility] PRN Reason: Protocol Last Admin: 07/29/17 09:35 Dose: Not Given Mupirocin (Bactroban Ointment) 1 gm TOP BID [facility] Last Admin: 07/28/17 20:28 Dose: Not Given Insulin Degludec [ Tresiba Flextouch U- 200] 30 unit SC HS [facility] Last Admin: 07/18/17 22:31 Dose: Not Given Nystatin (Nystop Topical Powder) 1 gm TOP DAILY [facility] Last Admin: 07/28/17 10:06 Dose: 1 applic Pioglitazone HCl (Actos) 45 mg PO DAILY [facility] Propranolol HCl (Inderal) 10 mg PO Q8 [facility] Last Admin: 07/22/17 22:20 Dose: Not Given Quetiapine Fumarate (Seroquel) 12.5 mg PO HS [facility] PRN Reason: Protocol Last Admin: 07/22/17 21:49 Dose: 12.5 mg Sitagliptin Phosphate (Januvia) 25 mg PO DAILY [facility] Last Admin: 07/19/17 10:29 Dose: 25 mg - Labs Labs: 07/29/17 07:30 07/29/17 07:30 PT 15.1 SECONDS (9.4-12.5) H 07/20/17 09:55 INR 1.31 (0.93-1.08) H 07/20/17 09:55 APTT 37.7 Seconds (25.1-36.5) H 07/20/17 09:55 Attending/Attestation - Attestation I have personally seen and examined this patient.: Yes I have fully participated in the care of the patient.: Yes I have reviewed all pertinent clinical information, including history, physical exam and plan: Yes
[2017-07-26] MEDS ORDERED: DAPTOmycin 500 mg Inj (Cubicin) IV SCH (17:30)
--- NOTE | 2017-07-26 19:49 | CP.PCM.PN ---
Subjective - Date & Time of Evaluation Date of Evaluation: 07/26/17 Time of Evaluation: 14:35 - Subjective Subjective: Infectious Disease Follow Up: July 26, 2017 71 yo AA female sent from [facility] for poor responsiveness. 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 History of E. coli and enterococcus. The E. coli is ESBL+. The patient can give little history of her own. She is currently awake and alert now. The patient was on IV Vancomycin at [place]. Unclear if she was still on Meropenem there. Renal insufficiency. The patient had normal creatinine in June 2017. Still elevated creatinine. Unclear if this is secondary to several factors such as dehydration, poor appetite, and use of Vancomycin. Vancomycin remains high at 35.4 but she did get a dose in hospital early in the hospital course. At best the patient is AAO x 1. The patient has very uneven behavior... I'm not sure if this is her normal vs. AMS. Remains agitated. Wound cultures showing gram negative rods identified as MDR Acinetobacter. Urine with yeast. Patient found unresponsive yesterday AM. The patient had rapid response and Code Stroke called. Found to be severely hypertensive yesterday AM. Taken to ICU for further care. The patient has improved since transfer to ICU and is currently awake and alert. Patient does not always make sense when speaking but that is close to her baseline. Creatinine increased to 2.2 today. Overnight no new issues. Patient is more or less at baseline mental status. However, late yesterday afternoon, the patient had difficulty breathing again. Case discussed with Dr. Lim the [employer] Consultant. Switched Meropenem to Tygacil a few days ago. She remains on BiPAP. Episodes of hypothermia three nights ago down to 88.3. Normal temperatures last night and for the last two nights. Clinically, the patient has improved. The patient is awake and alert. She appears to be answering questions appropriately. Objective - Vital Signs/Intake and Output Vital Signs (last 24 hours): Temp Pulse Resp BP Pulse Ox 98.1 F 90 21 165/79 H 98 07/26/17 07:30 07/26/17 18:00 07/26/17 18:00 07/26/17 18:00 07/26/17 18:00 Intake and Output: 07/26/17 07/27/17 18:59 06:59 Intake Total 1900 Output Total 1900 Balance 0 - Medications Medications: Current Medications Acetaminophen (Tylenol 325mg Tab) 650 mg PO Q4H PRN PRN Reason: pain fever Last Admin: 07/22/17 00:05 Dose: 650 mg Albuterol/Ipratropium (Duoneb 3 Mg/0.5 Mg (3 Ml) Ud) 3 ml IH [id number] [facility] Last Admin: 07/26/17 14:55 Dose: 3 ml Aspirin (Aspirin Chewable) 81 mg PO DAILY [facility] Last Admin: 07/26/17 09:35 Dose: 81 mg Atorvastatin Calcium (Lipitor) 40 mg PO DIN [facility] Last Admin: 07/26/17 17:31 Dose: 40 mg Carvedilol (Coreg) 6.25 mg PO BID [facility] Clopidogrel Bisulfate (Plavix) 75 mg PO DAILY [facility] Last Admin: 07/26/17 09:35 Dose: 75 mg Clotrimazole (Lotrimin 1%) 1 gm TOP DAILY [facility] Last Admin: 07/26/17 09:34 Dose: 1 applic Collagenase (Santyl) 1 gm TOP DAILY [facility] Last Admin: 07/26/17 10:20 Dose: Not Given Famotidine (Pepcid) 20 mg PO HS [facility] Last Admin: 07/25/17 21:22 Dose: 20 mg Ferrous Sulfate (Feosol) 324 mg PO BID [facility] Last Admin: 07/26/17 17:31 Dose: 324 mg Furosemide (Lasix) 20 mg IVP DAILY [facility] Last Admin: 07/23/17 11:39 Dose: Not Given Furosemide (Lasix) 40 mg IVP DAILY [facility] Last Admin: 07/24/17 09:33 Dose: 40 mg Hydralazine HCl (Apresoline) 10 mg IVP Q6 PRN PRN Reason: SBP >160 DBP>90 Last Admin: 07/25/17 20:13 Dose: 10 mg Hydralazine HCl (Apresoline) 25 mg PO QID [facility] Last Admin: 07/26/17 17:30 Dose: 25 mg Tigecycline 50 mg/ Sodium (Chloride) 100 mls @ 100 mls/hr IVPB Q12 [facility] PRN Reason: Protocol Last Admin: 07/26/17 09:37 Dose: 100 mls/hr Sodium Chloride (Sodium Chloride 0.45%) 1,000 mls @ 75 mls/hr IV .[id number] [facility] Last Admin: 07/26/17 15:15 Dose: 75 mls/hr Daptomycin 530 mg/ Sodium (Chloride) 100 mls @ 200 mls/hr IV Q48H [facility] Stop: 07/31/17 17:46 Last Admin: 07/26/17 18:44 Dose: 200 mls/hr Insulin Human Regular (Humulin R Low) 0 units SC ACHS [facility] PRN Reason: Protocol Last Admin: 07/26/17 16:05 Dose: 2 units Methylprednisolone (Solu-Medrol) 20 mg IVP Q12 [facility] Stop: 07/27/17 12:00 Mupirocin (Bactroban Ointment) 1 gm TOP BID [facility] Last Admin: 07/26/17 17:32 Dose: Not Given Insulin Degludec [ Tresiba Flextouch U- 200] 30 unit SC HS [facility] Last Admin: 07/18/17 22:31 Dose: Not Given Nystatin (Nystop Topical Powder) 1 gm TOP DAILY [facility] Last Admin: 07/26/17 09:34 Dose: 1 applic Pioglitazone HCl (Actos) 45 mg PO DAILY [facility] Propranolol HCl (Inderal) 10 mg PO Q8 [facility] Last Admin: 07/22/17 22:20 Dose: Not Given Quetiapine Fumarate (Seroquel) 12.5 mg PO [facility] PRN Reason: Protocol Last Admin: 07/22/17 21:49 Dose: 12.5 mg Sitagliptin Phosphate (Januvia) 25 mg PO DAILY [facility] Last Admin: 07/19/17 10:29 Dose: 25 mg - Labs Labs: 07/26/17 05:30 07/26/17 05:30 PT 15.1 SECONDS (9.4-12.5) H 07/20/17 09:55 INR 1.31 (0.93-1.08) H 07/20/17 09:55 APTT 37.7 Seconds (25.1-36.5) H 07/20/17 09:55 - Constitutional Appears: Non-toxic, No Acute Distress, Chronically Ill - Head Exam Head Exam: ATRAUMATIC, NORMOCEPHALIC - Eye Exam Pupil Exam: Unequal Additional comments: right eye 3 mm, left eye 4 mm but no longer sluggish to react. - ENT Exam ENT Exam: Mucous Membranes Moist, Normal External Ear Exam, TM's Normal Bilaterally - Neck Exam Neck Exam: Full ROM, Normal Inspection - Respiratory Exam Respiratory Exam: Clear to Ausculation Bilateral, NORMAL BREATHING PATTERN. absent: Rales, Rhonchi, Wheezes - Cardiovascular Exam Cardiovascular Exam: REGULAR RHYTHM, RRR, +S1, +S2 - GI/Abdominal Exam GI & Abdominal Exam: Soft, Normal Bowel Sounds. absent: Distended, Tenderness - Extremities Exam Extremities Exam: Full ROM, Normal Inspection - Neurological Exam Neurological Exam: Alert, Awake, CN II-XII Intact Additional comments: AAO x 1-2. Awake and alert. Answers appropriately. Animated today when speaking. - Psychiatric Exam Psychiatric exam: Normal Affect, Normal Mood - Skin Skin Exam: Intact, Normal Color Assessment and Plan - Assessment and Plan (Free Text) Assessment: 71 yo AA female with altered renal function and was poorly responsive at [facility]. The patient was on Vancomycin for antibiotic treatment. Will restart Meropenem and check Vancomycin levels fist given worsening creatinine levels. Local wound care. Still with decreased renal function despite normal values in the early part of June 2017. Likely multiple factors contributing to this including dehydration , poor oral appetite, and use of Vancomycin antibiotics. Unclear if the renal function will recover at this point... it is too early to tell. Recheck creatinine tomorrow. May need to consider Zyvox over Vancomycin for treatment given renal function. Check Vancomycin level tomorrow again. Level currently is 35.4 taken about 24 hours after the last administration of IV Vancomycin. Possible consideration of Zyvox use after Vancomycin levels normalize and if culture still suggest Enterococcus infection. Podiatry has recultured with foot. Will continue with renally dosed meropenem for now. Gram negative rods in wound cultures of the foot identified as MDR Acinetobacter. Will check with lab regarding sensitivities to additional antibiotics. For now remains on meropenem. Brought to MICU after being found unresponsive. Severely hypertensive during rapid response. After a few hours in the MICU, the patient is now awake and alert. Continuing on meropenem. The patient has been afebrile and has had no leukocytosis. No new issues overnight. Creatinine stayed at 1.7 today. No leukocytosis. The patient had difficulty breathing this afternoon. Antibiotics switched from meropenem to tigecycline for the time being. Patient is still lethargic but more arousable. Hypothermic two nights ago... normal temperatures overnight. Was on Zyvox and Meropenem for IV antibiotics. Awaiting final blood cultures ( coagulase positive cocci in clusters). Currently on Tigecycline. The patient improved significantly since started on Tigecycline. VRE in urine and one blood culture. Yeast in urine and one blood culture. Removal or exchange of all indwelling catheters strongly recommended. Spoke with Dr. Lim. Daptomycin started for VRE. Would obtain Beta-D- Glucan test. Hesitant to start anti-fungal given potential liver toxic meds the patient is already on. Considering total of 7 days of Tigecycline. Repeat cultures. Given overall improvement, the patient may not need the Daptomicin coverage. Thank you for allowing me to participate in the care of the patient, we will follow with you.
[2017-07-27] MEDS: Albuterol-Ipratrop 3 mg / 0.5 (3 ml) UD IH SCH ×6 (01:05→20:10)
--- NOTE | 2017-07-27 04:10 | PN ---
DATE: 07/26/2017 SUBJECTIVE: Patient was seen and examined on the bedside in the ICU in her room. No acute event overnight. Patient is oriented only x2 to self and place. Today, she is more awake and alert. No dizziness, chest pain, shortness of breath, nausea, vomiting, or diarrhea. Moving all four extremities, follows simple commands and conversing also. PHYSICAL EXAMINATION: VITAL SIGNS: Temperature 99.2, pulse 77, respiratory rate 11, blood pressure 127/58, pulse oximetry 100. HEENT: Head normocephalic, atraumatic. Eyes, PERRLA. Extraocular muscles intact. Conjunctivae clear. Nose patent. Mucous membrane moist. NECK: Supple. No carotid bruit, JVD, or thyromegaly. CHEST: Bilaterally symmetrical. HEART: S1 and S2 positive. LUNGS: Clear to auscultation. ABDOMEN: Soft. Bowel sounds present. No organomegaly. EXTREMITIES: No edema. No cyanosis. NEUROLOGIC: Patient is awake and alert, but sometimes very confused. MEDICATIONS: Tylenol, DuoNeb, aspirin, Lipitor, Plavix, Pepcid, iron, Lasix, hydralazine, tigecycline, NS, insulin, Solu-Medrol, Actos, Inderal, Seroquel, and Januvia. LABORATORY DATA: White blood cells 11.6, hemoglobin 9.2, hematocrit 28.3, platelets 217. Sodium 146, potassium 3.4, BUN noted creatinine 2.2, glucose 228. ASSESSMENT AND PLAN: Ms. Tamy Abbott is a 71-year-old lady with leukocytosis, anemia, renal insufficiency, hyperglycemia, has a history of hypertension, dementia, left foot ulceration, status post toe amputation, relatively poor responsiveness and cellulitis and ulceration of left foot. Now, patient is stable. Repeat CAT scan is negative. MRI of the brain limited motion with degraded study unlikely to be seizure or stroke as per Neurology. Ammonia and prolactin, and troponin, all levels are within normal limits. Echo and EEG is unremarkable. Seroquel is started. Fall precaution. Seizure precaution, maintenance normotensive and euglycemic. Aspiration precaution. Neurologist signed off the case because of the patient's stability appreciated. Seen by the kidney doctor, Dr. Reza Cosby, and Infectious Disease Dr. Pack. Put antibiotics as per Dr. Pack. We will follow up. Deisy Gilman MD [facility]
--- NOTE | 2017-07-27 06:23 | CP.PCM.PN ---
Subjective - Date & Time of Evaluation Date of Evaluation: 07/26/17 Time of Evaluation: 12:00 - Subjective Subjective: Patient more alert and communicative; no sob; tolerating diet; Objective - Vital Signs/Intake and Output Vital Signs (last 24 hours): Temp Pulse Resp BP Pulse Ox 98.1 F 83 15 181/90 H 98 07/26/17 07:30 07/27/17 04:20 07/27/17 04:00 07/27/17 04:20 07/27/17 04:00 Intake and Output: 07/26/17 07/27/17 18:59 06:59 Intake Total 1900 Output Total 1900 Balance 0 - Medications Medications: Current Medications Acetaminophen (Tylenol 325mg Tab) 650 mg PO Q4H PRN PRN Reason: pain fever Last Admin: 07/27/17 02:58 Dose: 650 mg Albuterol/Ipratropium (Duoneb 3 Mg/0.5 Mg (3 Ml) Ud) 3 ml IH [id number] [facility] Last Admin: 07/27/17 04:55 Dose: 3 ml Aspirin (Aspirin Chewable) 81 mg PO DAILY [facility] Last Admin: 07/26/17 09:35 Dose: 81 mg Atorvastatin Calcium (Lipitor) 40 mg PO DIN [facility] Last Admin: 07/26/17 17:31 Dose: 40 mg Carvedilol (Coreg) 6.25 mg PO BID [facility] Last Admin: 07/26/17 19:54 Dose: 6.25 mg Clopidogrel Bisulfate (Plavix) 75 mg PO DAILY [facility] Last Admin: 07/26/17 09:35 Dose: 75 mg Clotrimazole (Lotrimin 1%) 1 gm TOP DAILY [facility] Last Admin: 07/26/17 09:34 Dose: 1 applic Collagenase (Santyl) 1 gm TOP DAILY [facility] Last Admin: 07/26/17 10:20 Dose: Not Given Famotidine (Pepcid) 20 mg PO HS [facility] Last Admin: 07/26/17 22:12 Dose: 20 mg Ferrous Sulfate (Feosol) 324 mg PO BID [facility] Last Admin: 07/26/17 17:31 Dose: 324 mg Furosemide (Lasix) 20 mg IVP DAILY [facility] Last Admin: 07/23/17 11:39 Dose: Not Given Furosemide (Lasix) 40 mg IVP DAILY [facility] Last Admin: 07/24/17 09:33 Dose: 40 mg Hydralazine HCl (Apresoline) 10 mg IVP Q6 PRN PRN Reason: SBP >160 DBP>90 Last Admin: 07/27/17 04:20 Dose: 10 mg Hydralazine HCl (Apresoline) 50 mg PO QID [facility] Sodium Chloride (Sodium Chloride 0.45%) 1,000 mls @ 75 mls/hr IV .[id number] [facility] Last Admin: 07/26/17 15:15 Dose: 75 mls/hr Daptomycin 530 mg/ Sodium (Chloride) 100 mls @ 200 mls/hr IV Q48H [facility] Stop: 07/31/17 17:46 Last Admin: 07/26/17 18:44 Dose: 200 mls/hr Insulin Human Regular (Humulin R Low) 0 units SC ACHS [facility] PRN Reason: Protocol Last Admin: 07/26/17 16:05 Dose: 2 units Methylprednisolone (Solu-Medrol) 20 mg IVP Q12 [facility] Stop: 07/27/17 12:00 Last Admin: 07/26/17 22:11 Dose: 20 mg Mupirocin (Bactroban Ointment) 1 gm TOP BID [facility] Last Admin: 07/26/17 17:32 Dose: Not Given Insulin Degludec [ Tresiba Flextouch U- 200] [address] [facility] Last Admin: 07/18/17 22:31 Dose: Not Given Nystatin (Nystop Topical Powder) 1 gm TOP DAILY [facility] Last Admin: 07/26/17 09:34 Dose: 1 applic Pioglitazone HCl (Actos) 45 mg PO DAILY [facility] Propranolol HCl (Inderal) 10 mg PO Q8 [facility] Last Admin: 07/22/17 22:20 Dose: Not Given Quetiapine Fumarate (Seroquel) 12.5 mg PO HS [facility] PRN Reason: Protocol Last Admin: 07/22/17 21:49 Dose: 12.5 mg Sitagliptin Phosphate (Januvia) 25 mg PO DAILY [facility] Last Admin: 07/19/17 10:29 Dose: 25 mg - Labs Labs: 07/26/17 05:30 07/26/17 05:30 PT 15.1 SECONDS (9.4-12.5) H 07/20/17 09:55 INR 1.31 (0.93-1.08) H 07/20/17 09:55 APTT 37.7 Seconds (25.1-36.5) H 07/20/17 09:55 - Constitutional Appears: Non-toxic, No Acute Distress - Eye Exam Eye Exam: absent: Scleral icterus - ENT Exam ENT Exam: Mucous Membranes Moist - Respiratory Exam Respiratory Exam: Clear to Ausculation Bilateral. absent: Respiratory Distress - Cardiovascular Exam Cardiovascular Exam: RRR, +S1, +S2 - GI/Abdominal Exam GI & Abdominal Exam: Soft. absent: Distended, Tenderness - Extremities Exam Additional comments: mild/moderate b/l leg edema; - Neurological Exam Neurological Exam: Alert, Awake - Psychiatric Exam Psychiatric exam: Normal Mood. absent: Agitated - Skin Skin Exam: Warm. absent: Cyanosis Assessment and Plan (1) Acute renal failure Assessment & Plan: ATN, now appears to be in polyuric phase of recovery; started on 1/2NS at 75 cc/ hr to avoid volume depletion, continue; need to avoid nephrotoxic agents and sharp drops in BP; Status: Acute (2) Respiratory failure Status: Acute (3) Hypertension Assessment & Plan: BP still uncontrolled, increasing hydralazine to 25 mg QID frequency; starting coreg 6.25 mg bid; Status: Acute (4) Proteinuria Status: Acute (5) Cellulitis and abscess Assessment & Plan: Now with VRE in blood, started on daptomycin dosed q48h, may need to increase dosing frequency as renal function improves; Status: Acute
[2017-07-27 07:02] LABS: HEMOGLOBIN 9.2 g/dL (12.0-16.0); MEAN CELL VOLUME 78.7 fl (80.0-105.0); MEAN CORPUSCULAR HEMOGLOBIN 25.5 pg (25.0-35.0); MEAN CORPUSCULAR HGB CONC 32.4 g/dl (31.0-37.0); MEAN PLATELET VOLUME 10.7 fl (7.0-11.0); RBC 3.61 10^6/uL (3.5-6.1); RED CELL DISTRIBUTION WIDTH 16.2 % (11.5-14.5); WHITE BLOOD COUNT 11.4 10^3/ul (4.5-11.0)
[2017-07-27 07:53] LABS: ALB/GLOB RATIO 0.9 (1.1-1.8); ALBUMIN 2.9 g/dL (3.0-4.8); CALCIUM 7.7 mg/dL (8.4-10.5)
--- NOTE | 2017-07-27 08:09 | PN ---
DATE: 07/25/2017 SUBJECTIVE: The patient is a 71-year-old female. The patient was seen and examined at the bedside on 07/25/2017. Diet is less. No new complaints. Urine output is improving. No nausea or vomiting. No headache or dizziness. The patient is a very poor historian. No fever. No chills. PHYSICAL EXAMINATION: VITAL SIGNS: Temperature is 98.4, pulse 89, respiratory rate 24, blood pressure 180/85, pulse oximetry 97. HEENT: Normocephalic and atraumatic. Eyes: PERRLA. Extraocular muscles are intact. Conjunctivae are clear. Nose: Patent. Mucous membrane moist. NECK: Supple. No carotid bruits. No JVD or thyromegaly. CHEST: Bilaterally symmetrical. HEART: S1, S2 positive. LUNGS: Clear to auscultation. ABDOMEN: Soft. Bowel sounds present. No organomegaly. EXTREMITIES: Upper extremities, no edema, no cyanosis. NEUROLOGIC: The patient is awake. Follows simple commands. MEDICATIONS: Tylenol 650 mg p.o. every 4 hours p.r.n. Deisy Gilman MD MTDD
[2017-07-27] MEDS: Insulin Reg-LOW-Coverage SC SCH ×4 (08:24→21:53)
[2017-07-27] MEDS: MethylPREDNISolone 40 mg Vial IVP SCH (09:56)
[2017-07-27] MEDS: Sodium Chloride 0.45% 1,000 ML IV SCH (09:57)
[2017-07-27] MEDS: Mupirocin 2% Ointment 15 GM TUBE TOP SCH ×2 (10:27→17:04)
[2017-07-27] MEDS: Collagenase 250 Units/gm Ointment(30 gm) TOP SCH (10:28)
[2017-07-27] MEDS ORDERED: Micafungin 100 MG in Sodium Chloride 0.9% 100 ML IV SCH (11:00)
[2017-07-27] MEDS ORDERED: Magnesium Sulfate 1 gm in D5W 1 GM/100 ML BAG IVPB ONE (11:13)
[2017-07-27] MEDS ORDERED: Sodium Chloride 0.45% 1,000 ML IV SCH (12:47)
[2017-07-27] MEDS: Clotrimazole 1% Cream(30 gm) TOP SCH (12:53)
[2017-07-27] MEDS: Nystatin 100,000 Units/gm Topical Pow(15 gm) TOP SCH (12:53)
--- NOTE | 2017-07-27 16:58 | CP.PCM.PN ---
Subjective - Date & Time of Evaluation Date of Evaluation: 07/27/17 Time of Evaluation: 14:30 - Subjective Subjective: Infectious Disease Follow Up: July 27, 2017 71 yo AA female sent from [facility] for poor responsiveness. 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 History of E. coli and enterococcus. The E. coli is ESBL+. The patient can give little history of her own. She is currently awake and alert now. The patient was on IV Vancomycin at [place]. Unclear if she was still on Meropenem there. Renal insufficiency. The patient had normal creatinine in June 2017. Still elevated creatinine. Unclear if this is secondary to several factors such as dehydration, poor appetite, and use of Vancomycin. Vancomycin remains high at 35.4 but she did get a dose in hospital early in the hospital course. At best the patient is AAO x 1. The patient has very uneven behavior... I'm not sure if this is her normal vs. AMS. Remains agitated. Wound cultures showing gram negative rods identified as MDR Acinetobacter. Urine with yeast. Patient found unresponsive yesterday AM. The patient had rapid response and Code Stroke called. Found to be severely hypertensive yesterday AM. Taken to ICU for further care. The patient has improved since transfer to ICU and is currently awake and alert. Patient does not always make sense when speaking but that is close to her baseline. Creatinine increased to 2.2 today. Overnight no new issues. Patient is more or less at baseline mental status. However, late yesterday afternoon, the patient had difficulty breathing again. Case discussed with Dr. Lim the Real Estate Representative. Switched Meropenem to Tygacil a few days ago. She remains on BiPAP. Episodes of hypothermia three nights ago down to 88.3. Normal temperatures last night and for the last two nights. Clinically, the patient has improved. The patient is awake and alert. She appears to be answering questions appropriately. No additional complaints. Patient requesting a hamburger or hot dog now. Vandana growth in aerobic bottle. Fungitell test pending. Objective - Vital Signs/Intake and Output Vital Signs (last 24 hours): Temp Pulse Resp BP Pulse Ox 98.1 F 85 18 169/100 H 97 07/26/17 07:30 07/27/17 15:07 07/27/17 15:00 07/27/17 15:07 07/27/17 15:00 Intake and Output: 07/27/17 07/27/17 06:59 18:59 Intake Total 1200 Output Total 1500 Balance -300 - Medications Medications: Current Medications Acetaminophen (Tylenol 325mg Tab) 650 mg PO Q4H PRN PRN Reason: pain fever Last Admin: 07/27/17 02:58 Dose: 650 mg Albuterol/Ipratropium (Duoneb 3 Mg/0.5 Mg (3 Ml) Ud) 3 ml IH [id number] [facility] Last Admin: 07/27/17 15:56 Dose: 3 ml Aspirin (Aspirin Chewable) 81 mg PO DAILY [facility] Last Admin: 07/27/17 09:56 Dose: 81 mg Atorvastatin Calcium (Lipitor) 40 mg PO DIN [facility] Last Admin: 07/26/17 17:31 Dose: 40 mg Carvedilol (Coreg) 12.5 mg PO Q12H [facility] Last Admin: 07/27/17 06:44 Dose: 12.5 mg Clopidogrel Bisulfate (Plavix) 75 mg PO DAILY [facility] Last Admin: 07/27/17 09:56 Dose: 75 mg Clotrimazole (Lotrimin 1%) 1 gm TOP DAILY [facility] Last Admin: 07/27/17 12:53 Dose: 1 applic Collagenase (Santyl) 1 gm TOP DAILY [facility] Last Admin: 07/27/17 10:28 Dose: Not Given Famotidine (Pepcid) 20 mg PO HS [facility] Last Admin: 07/26/17 22:12 Dose: 20 mg Ferrous Sulfate (Feosol) 324 mg PO BID [facility] Last Admin: 07/27/17 09:56 Dose: 324 mg Furosemide (Lasix) 20 mg IVP DAILY [facility] Last Admin: 07/23/17 11:39 Dose: Not Given Furosemide (Lasix) 40 mg IVP DAILY [facility] Last Admin: 07/24/17 09:33 Dose: 40 mg Hydralazine HCl (Apresoline) 10 mg IVP Q6 PRN PRN Reason: SBP >160 DBP>90 Last Admin: 07/27/17 04:20 Dose: 10 mg Hydralazine HCl (Apresoline) 50 mg PO QID [facility] Last Admin: 07/27/17 15:07 Dose: 50 mg Daptomycin 530 mg/ Sodium (Chloride) 100 mls @ 200 mls/hr IV Q48H [facility] Stop: 07/31/17 17:46 Last Admin: 07/26/17 18:44 Dose: 200 mls/hr Sodium Chloride (Sodium Chloride 0.45%) 1,000 mls @ 40 mls/hr IV .Q24H [facility] Micafungin Sodium 100 mg/ (Sodium Chloride) 100 mls @ 100 mls/hr IV DAILY [facility] PRN Reason: Protocol Insulin Human Regular (Humulin R Low) 0 units SC ACHS [facility] PRN Reason: Protocol Last Admin: 07/27/17 16:43 Dose: 3 units Mupirocin (Bactroban Ointment) 1 gm TOP BID [facility] Last Admin: 07/27/17 10:27 Dose: Not Given Insulin Degludec [ Tresiba Flextouch U- 200] 30 unit SC HS [facility] Last Admin: 07/18/17 22:31 Dose: Not Given Nystatin (Nystop Topical Powder) 1 gm TOP DAILY [facility] Last Admin: 07/27/17 12:53 Dose: 1 applic Pioglitazone HCl (Actos) 45 mg PO DAILY [facility] Propranolol HCl (Inderal) 10 mg PO Q8 [facility] Last Admin: 07/22/17 22:20 Dose: Not Given Quetiapine Fumarate (Seroquel) 12.5 mg PO HS [facility] PRN Reason: Protocol Last Admin: 07/22/17 21:49 Dose: 12.5 mg Sitagliptin Phosphate (Januvia) 25 mg PO DAILY [facility] Last Admin: 07/19/17 10:29 Dose: 25 mg - Labs Labs: 07/27/17 06:00 07/27/17 06:00 PT 15.1 SECONDS (9.4-12.5) H 07/20/17 09:55 INR 1.31 (0.93-1.08) H 07/20/17 09:55 APTT 37.7 Seconds (25.1-36.5) H 07/20/17 09:55 - Constitutional Appears: Non-toxic, No Acute Distress, Chronically Ill - Head Exam Head Exam: ATRAUMATIC, NORMOCEPHALIC - Eye Exam Pupil Exam: Unequal Additional comments: right eye 3 mm, left eye 4 mm - ENT Exam ENT Exam: Mucous Membranes Moist, Normal External Ear Exam, TM's Normal Bilaterally - Neck Exam Neck Exam: Full ROM, Normal Inspection - Respiratory Exam Respiratory Exam: Clear to Ausculation Bilateral, NORMAL BREATHING PATTERN. absent: Rales, Rhonchi, Wheezes - Cardiovascular Exam Cardiovascular Exam: REGULAR RHYTHM, RRR, +S1, +S2 - GI/Abdominal Exam GI & Abdominal Exam: Soft, Normal Bowel Sounds. absent: Distended, Tenderness - Extremities Exam Extremities Exam: Full ROM, Normal Inspection - Neurological Exam Neurological Exam: Alert, Awake, CN II-XII Intact Additional comments: AAO x 2. Awake and alert. Answers quickly and appropriately. - Psychiatric Exam Psychiatric exam: Normal Affect, Normal Mood - Skin Skin Exam: Intact, Normal Color Assessment and Plan - Assessment and Plan (Free Text) Assessment: 71 yo AA female with altered renal function and was poorly responsive at [facility]. The patient was on Vancomycin for antibiotic treatment. Will restart Meropenem and check Vancomycin levels fist given worsening creatinine levels. Local wound care. Still with decreased renal function despite normal values in the early part of June 2017. Likely multiple factors contributing to this including dehydration , poor oral appetite, and use of Vancomycin antibiotics. Unclear if the renal function will recover at this point... it is too early to tell. Recheck creatinine tomorrow. May need to consider Zyvox over Vancomycin for treatment given renal function. Check Vancomycin level tomorrow again. Level currently is 35.4 taken about 24 hours after the last administration of IV Vancomycin. Possible consideration of Zyvox use after Vancomycin levels normalize and if culture still suggest Enterococcus infection. Podiatry has recultured with foot. Will continue with renally dosed meropenem for now. Gram negative rods in wound cultures of the foot identified as MDR Acinetobacter. Will check with lab regarding sensitivities to additional antibiotics. For now remains on meropenem. Brought to MICU after being found unresponsive. Severely hypertensive during rapid response. After a few hours in the MICU, the patient is now awake and alert. Continuing on meropenem. The patient has been afebrile and has had no leukocytosis. No new issues overnight. Creatinine stayed at 1.7 today. No leukocytosis. The patient had difficulty breathing this afternoon. Antibiotics switched from meropenem to tigecycline for the time being. Patient is still lethargic but more arousable. Hypothermic two nights ago... normal temperatures overnight. Was on Zyvox and Meropenem for IV antibiotics. Awaiting final blood cultures ( coagulase positive cocci in clusters). Currently on Tigecycline. The patient improved significantly since started on Tigecycline. VRE in urine and one blood culture. Yeast in urine and one blood culture. Removal or exchange of all indwelling catheters strongly recommended. Spoke with Dr. Lim. Daptomycin started for VRE. Would obtain Beta-D- Glucan test. Repeat cultures. Vandana in one blood culture. Given QT interval , may consider use of Micafungin. Source of fungi likely the PICC line that was used to administer antibiotics (it appears to have been in for 3-4 months) which the Patient removed herself earlier in this hospitalization. Thank you for allowing me to participate in the care of the patient, we will follow with you.
--- NOTE | 2017-07-27 17:10 | CP.PCM.PN ---
<Myron Melendez - Last Filed: 07/27/17 19:04> Subjective - Date & Time of Evaluation Date of Evaluation: 07/27/17 Time of Evaluation: 17:09 - Subjective Subjective: Podiatry Progress Note- Dr. Anderson 71 year old female seen and evaluated at bedside for left lateral non-healing ulceration with osteomyelitis and bilaterally open fissures at the digits. Patient is seen laying comfortably in bed and in NAD. Patient was awake and alert. Reports that she is doing good. Denies any pain to the lower extremity. No new pedal complaints Objective - Vital Signs/Intake and Output Vital Signs (last 24 hours): Temp Pulse Resp BP Pulse Ox 98.1 F 78 17 179/88 H 100 07/26/17 07:30 07/27/17 16:00 07/27/17 16:00 07/27/17 16:00 07/27/17 16:00 Intake and Output: 07/27/17 07/27/17 06:59 18:59 Intake Total 1200 Output Total 1500 Balance -300 - Medications Medications: Current Medications Acetaminophen (Tylenol 325mg Tab) 650 mg PO Q4H PRN PRN Reason: pain fever Last Admin: 07/27/17 02:58 Dose: 650 mg Albuterol/Ipratropium (Duoneb 3 Mg/0.5 Mg (3 Ml) Ud) 3 ml IH [id number] [facility] Last Admin: 07/27/17 15:56 Dose: 3 ml Aspirin (Aspirin Chewable) 81 mg PO DAILY [facility] Last Admin: 07/27/17 09:56 Dose: 81 mg Atorvastatin Calcium (Lipitor) 40 mg PO DIN [facility] Last Admin: 07/26/17 17:31 Dose: 40 mg Carvedilol (Coreg) 12.5 mg PO Q12H [facility] Last Admin: 07/27/17 06:44 Dose: 12.5 mg Clopidogrel Bisulfate (Plavix) 75 mg PO DAILY [facility] Last Admin: 07/27/17 09:56 Dose: 75 mg Clotrimazole (Lotrimin 1%) 1 gm TOP DAILY [facility] Last Admin: 07/27/17 12:53 Dose: 1 applic Collagenase (Santyl) 1 gm TOP DAILY [facility] Last Admin: 07/27/17 10:28 Dose: Not Given Famotidine (Pepcid) 20 mg PO HS [facility] Last Admin: 07/26/17 22:12 Dose: 20 mg Ferrous Sulfate (Feosol) 324 mg PO BID [facility] Last Admin: 07/27/17 09:56 Dose: 324 mg Furosemide (Lasix) 20 mg IVP DAILY [facility] Last Admin: 07/23/17 11:39 Dose: Not Given Furosemide (Lasix) 40 mg IVP DAILY [facility] Last Admin: 07/24/17 09:33 Dose: 40 mg Hydralazine HCl (Apresoline) 10 mg IVP Q6 PRN PRN Reason: SBP >160 DBP>90 Last Admin: 07/27/17 04:20 Dose: 10 mg Hydralazine HCl (Apresoline) 50 mg PO QID [facility] Last Admin: 07/27/17 15:07 Dose: 50 mg Daptomycin 530 mg/ Sodium (Chloride) 100 mls @ 200 mls/hr IV Q48H [facility] Stop: 07/31/17 17:46 Last Admin: 07/26/17 18:44 Dose: 200 mls/hr Sodium Chloride (Sodium Chloride 0.45%) 1,000 mls @ 40 mls/hr IV .Q24H [facility] Micafungin Sodium 100 mg/ (Sodium Chloride) 100 mls @ 100 mls/hr IV DAILY [facility] PRN Reason: Protocol Insulin Human Regular (Humulin R Low) 0 units SC [facility] PRN Reason: Protocol Last Admin: 07/27/17 16:43 Dose: 3 units Mupirocin (Bactroban Ointment) 1 gm TOP BID [facility] Last Admin: 07/27/17 10:27 Dose: Not Given Insulin Degludec [ Tresiba Flextouch U- 200] 30 unit SC [facility] Last Admin: 07/18/17 22:31 Dose: Not Given Nystatin (Nystop Topical Powder) 1 gm TOP DAILY [facility] Last Admin: 07/27/17 12:53 Dose: 1 applic Pioglitazone HCl (Actos) 45 mg PO DAILY [facility] Propranolol HCl (Inderal) 10 mg PO Q8 [facility] Last Admin: 07/22/17 22:20 Dose: Not Given Quetiapine Fumarate (Seroquel) 12.5 mg PO [facility] PRN Reason: Protocol Last Admin: 07/22/17 21:49 Dose: 12.5 mg Sitagliptin Phosphate (Januvia) 25 mg PO DAILY [facility] Last Admin: 07/19/17 10:29 Dose: 25 mg - Labs Labs: 07/27/17 06:00 07/27/17 06:00 PT 15.1 SECONDS (9.4-12.5) H 07/20/17 09:55 INR 1.31 (0.93-1.08) H 07/20/17 09:55 APTT 37.7 Seconds (25.1-36.5) H 07/20/17 09:55 - Constitutional Appears: Well, Non-toxic, No Acute Distress - Extremities Exam Extremities Exam: absent: Calf Tenderness Additional comments: Lower extremity focused exam: Vasc: DP and PT pulses palpable 1/4. Temperature gradient warm to cool. CFT < 3 sec x 3 digits. Mild pedal edema noted to lateral foot Derm: Clean open ulceration measuring approximately 7 cm x 3 cm x 0.6 cm to lateral forefoot with fibrogranular wound base. There is no erythema. Serous drainage noted to the dressing, no malodor, no tunneling or undermining present , no odor, no streaking, no purulence. Open plantar fissure noted to 3rd MPJ sulcus of the left foot. No clinical signs of infection. Open fissures noted to the right foot of 3rd, 4th, and 5th MPJ sulcus. No clinical signs of infection. Xerosis to the b/l foot Neuro: Protective sensation absent, gross sensation diminished Ortho: No tenderness to palpation of lateral forefoot ulceration - Neurological Exam Neurological Exam: Alert, Awake, Oriented x3 Assessment and Plan - Assessment and Plan (Free Text) Assessment: 71 y/o diabetic female with lateral left foot full thickness ulceration with osteomyelitis and bilateral foot open fissures with likely fungal component. Plan: Patient seen and evaluated at bedside with attending Dr. Trujillo X-rays of L foot (-) for any acute osseous changes/acute OM MRI of L foot ordered-5th metatarsal OM Cleansed ulceration with saline solution. Dressed right lateral ulceration with xeroform, DSD, ABD, and kerlix to the left Right opening fissures cleansed and applied nystatin and dsd Patient to wear multipodus boots to offload LE. Wear at all times while in bed. AMISHA impression: Very limited AMISHA exam, ABIs bilateraly SFA disease, bilaterally tibial disease Wound culture + for Acinetobacter Baumanii Continue IV abx per ID No surgical intervention by podiatry Podiatry will continue to provide local wound care Podiatry will continue to follow while in house <Eboni Anderson - Last Filed: 07/31/17 16:26> Objective - Vital Signs/Intake and Output Vital Signs (last 24 hours): Temp Pulse Resp BP Pulse Ox 98.1 F 77 18 148/71 95 07/31/17 06:00 07/31/17 14:35 07/31/17 06:00 07/31/17 14:35 07/31/17 06:00 Intake and Output: 07/31/17 07/31/17 06:59 18:59 Intake Total 120 480 Balance 120 480 - Medications Medications: Current Medications Acetaminophen (Tylenol 325mg Tab) 650 mg PO Q4H PRN PRN Reason: pain fever Last Admin: 07/27/17 02:58 Dose: 650 mg Albuterol/Ipratropium (Duoneb 3 Mg/0.5 Mg (3 Ml) Ud) 3 ml IH [id number] [facility] Last Admin: 07/31/17 15:22 Dose: 3 ml Amlodipine Besylate (Norvasc) 10 mg PO DAILY [facility] Aspirin (Aspirin Chewable) 81 mg PO DAILY [facility] Last Admin: 07/31/17 10:02 Dose: 81 mg Atorvastatin Calcium (Lipitor) 40 mg PO DIN [facility] Last Admin: 07/30/17 17:18 Dose: 40 mg Carvedilol (Coreg) 25 mg PO Q12 [facility] Last Admin: 07/31/17 12:38 Dose: 25 mg Clopidogrel Bisulfate (Plavix) 75 mg PO DAILY [facility] Last Admin: 07/31/17 10:02 Dose: 75 mg Clotrimazole (Lotrimin 1%) 1 gm TOP DAILY [facility] Last Admin: 07/31/17 10:08 Dose: 1 applic Collagenase (Santyl) 1 gm TOP DAILY [facility] Last Admin: 07/31/17 10:07 Dose: 1 applic Dextrose (Dextrose 50% Inj) 50 ml IVP PRN PRN PRN Reason: PRN For blood glucose below 80 Famotidine (Pepcid) 20 mg PO HS [facility] Last Admin: 07/30/17 21:23 Dose: 20 mg Ferrous Sulfate (Feosol) 324 mg PO BID [facility] Last Admin: 07/31/17 10:02 Dose: 324 mg Furosemide (Lasix) 20 mg PO DAILY [facility] Last Admin: 07/31/17 10:01 Dose: 20 mg Hydralazine HCl (Apresoline) 10 mg IVP Q6 PRN PRN Reason: SBP >160 DBP>90 Last Admin: 07/30/17 14:24 Dose: 10 mg Hydralazine HCl (Apresoline) 75 mg PO QID [facility] Last Admin: 07/31/17 14:35 Dose: 75 mg Micafungin Sodium 100 mg/ (Sodium Chloride) 100 mls @ 100 mls/hr IV DAILY [facility] PRN Reason: Protocol Last Admin: 07/31/17 10:02 Dose: 100 mls/hr Insulin Detemir (Levemir) 10 unit SC HS [facility] Last Admin: 07/30/17 23:30 Dose: 10 unit Insulin Human Regular (Humulin R Low) 0 units SC ACHS [facility] PRN Reason: Protocol Last Admin: 07/31/17 12:37 Dose: 1 units Mupirocin (Bactroban Ointment) 1 gm TOP BID [facility] Last Admin: 07/31/17 10:08 Dose: 1 appl Nystatin (Nystop Topical Powder) 1 gm TOP DAILY [facility] Last Admin: 07/31/17 10:07 Dose: 1 applic - Labs Labs: 07/31/17 12:10 07/31/17 12:10 PT 15.1 SECONDS (9.4-12.5) H 07/20/17 09:55 INR 1.31 (0.93-1.08) H 07/20/17 09:55 APTT 37.7 Seconds (25.1-36.5) H 07/20/17 09:55 Attending/Attestation - Attestation I have personally seen and examined this patient.: Yes I have fully participated in the care of the patient.: Yes I have reviewed all pertinent clinical information, including history, physical exam and plan: Yes
--- NOTE | 2017-07-27 19:37 | CP.PCM.PN ---
Subjective - Date & Time of Evaluation Date of Evaluation: 07/27/17 Time of Evaluation: 12:00 - Subjective Subjective: Reports feeling well; tolerating diet well; no sob; Objective - Vital Signs/Intake and Output Vital Signs (last 24 hours): Temp Pulse Resp BP Pulse Ox 97.9 F 74 16 143/65 99 07/27/17 16:00 07/27/17 18:00 07/27/17 18:00 07/27/17 18:00 07/27/17 18:00 Intake and Output: 07/27/17 07/28/17 18:59 06:59 Intake Total 1400 Output Total 700 Balance 700 - Medications Medications: Current Medications Acetaminophen (Tylenol 325mg Tab) 650 mg PO Q4H PRN PRN Reason: pain fever Last Admin: 07/27/17 02:58 Dose: 650 mg Albuterol/Ipratropium (Duoneb 3 Mg/0.5 Mg (3 Ml) Ud) 3 ml IH [id number] [facility] Last Admin: 07/27/17 15:56 Dose: 3 ml Aspirin (Aspirin Chewable) 81 mg PO DAILY [facility] Last Admin: 07/27/17 09:56 Dose: 81 mg Atorvastatin Calcium (Lipitor) 40 mg PO DIN [facility] Last Admin: 07/27/17 17:02 Dose: 40 mg Carvedilol (Coreg) 12.5 mg PO Q12H [facility] Last Admin: 07/27/17 17:37 Dose: Not Given Clopidogrel Bisulfate (Plavix) 75 mg PO DAILY [facility] Last Admin: 07/27/17 09:56 Dose: 75 mg Clotrimazole (Lotrimin 1%) 1 gm TOP DAILY [facility] Last Admin: 07/27/17 12:53 Dose: 1 applic Collagenase (Santyl) 1 gm TOP DAILY [facility] Last Admin: 07/27/17 10:28 Dose: Not Given Famotidine (Pepcid) 20 mg PO HS [facility] Last Admin: 07/26/17 22:12 Dose: 20 mg Ferrous Sulfate (Feosol) 324 mg PO BID [facility] Last Admin: 07/27/17 17:02 Dose: 324 mg Furosemide (Lasix) 20 mg IVP DAILY [facility] Last Admin: 07/23/17 11:39 Dose: Not Given Furosemide (Lasix) 40 mg IVP DAILY [facility] Last Admin: 07/24/17 09:33 Dose: 40 mg Hydralazine HCl (Apresoline) 10 mg IVP Q6 PRN PRN Reason: SBP >160 DBP>90 Last Admin: 07/27/17 04:20 Dose: 10 mg Hydralazine HCl (Apresoline) 50 mg PO QID [facility] Last Admin: 07/27/17 17:03 Dose: 50 mg Daptomycin 530 mg/ Sodium (Chloride) 100 mls @ 200 mls/hr IV Q48H [facility] Stop: 07/31/17 17:46 Last Admin: 07/26/17 18:44 Dose: 200 mls/hr Sodium Chloride (Sodium Chloride 0.45%) 1,000 mls @ 40 mls/hr IV .Q24H [facility] Last Admin: 07/27/17 13:04 Dose: 40 mls/hr Micafungin Sodium 100 mg/ (Sodium Chloride) 100 mls @ 100 mls/hr IV DAILY [facility] PRN Reason: Protocol Insulin Human Regular (Humulin R Low) 0 units SC ACHS [facility] PRN Reason: Protocol Last Admin: 07/27/17 16:43 Dose: 3 units Mupirocin (Bactroban Ointment) 1 gm TOP BID [facility] Last Admin: 07/27/17 17:04 Dose: Not Given Insulin Degludec [ Tresiba Flextouch U- 200] 30 unit SC HS [facility] Last Admin: 07/18/17 22:31 Dose: Not Given Nystatin (Nystop Topical Powder) 1 gm TOP DAILY [facility] Last Admin: 07/27/17 12:53 Dose: 1 applic Pioglitazone HCl (Actos) 45 mg PO DAILY [facility] Propranolol HCl (Inderal) 10 mg PO Q8 [facility] Last Admin: 07/22/17 22:20 Dose: Not Given Quetiapine Fumarate (Seroquel) 12.5 mg PO HS [facility] PRN Reason: Protocol Last Admin: 07/22/17 21:49 Dose: 12.5 mg Sitagliptin Phosphate (Januvia) 25 mg PO DAILY [facility] Last Admin: 07/19/17 10:29 Dose: 25 mg - Labs Labs: 07/27/17 06:00 07/27/17 06:00 PT 15.1 SECONDS (9.4-12.5) H 07/20/17 09:55 INR 1.31 (0.93-1.08) H 07/20/17 09:55 APTT 37.7 Seconds (25.1-36.5) H 07/20/17 09:55 - Constitutional Appears: Non-toxic, No Acute Distress - Eye Exam Eye Exam: absent: Scleral icterus - ENT Exam ENT Exam: Mucous Membranes Moist - Respiratory Exam Respiratory Exam: Clear to Ausculation Bilateral. absent: Respiratory Distress - Cardiovascular Exam Cardiovascular Exam: RRR, +S1, +S2 - GI/Abdominal Exam GI & Abdominal Exam: Soft. absent: Distended, Tenderness - Extremities Exam Additional comments: mild/moderate b/l leg edema, improved; - Neurological Exam Neurological Exam: Alert, Awake - Psychiatric Exam Psychiatric exam: Normal Mood. absent: Agitated - Skin Skin Exam: Warm. absent: Cyanosis Assessment and Plan (1) Acute renal failure Assessment & Plan: ATN, multifactorial, resolving; polyuria is also resolving; stable volume and eletrolyte status; -decreasing 1/2NS to 40 cc/hr; -continue to avoid nephrotoxic agents; Status: Acute (2) Respiratory failure Status: Acute (3) Hypertension Assessment & Plan: BP better controlled on increased dose of coreg and hydralazine, continue same; Status: Acute (4) Proteinuria Status: Acute (5) Cellulitis and abscess Assessment & Plan: With fungemia and VRE bacteremia; started on micafungin and daptomycin; will need to increase daptomycin frequency as renal function improves; Status: Acute
--- NOTE | 2017-07-27 20:41 | CON ---
DATE: 07/27/2017 CHIEF COMPLAINT AND HISTORY OF PRESENT ILLNESS: Ms. Abbott is a 71-year-old diabetic who was admitted with mental status changes and weakness. Her history is significant for recent left lateral toe amputation performed at an outside institution. She has an open wound. It is clean and granular. She denies significant pain. PAST MEDICAL HISTORY: Significant for diabetes and hypertension. She has renal insufficiency with a creatinine on this admission of approximately 2. PHYSICAL EXAMINATION: EXTREMITIES: She has palpable femoral and popliteal pulses. Her pedal pulses are not palpable. Tissues of the left foot appear well perfused. The feet are symmetric in temperature. Her AMISHA exam is limited by artifact. The resting AMISHA's are likely inaccurate due to calcification. There appears to be SFA and tibial disease bilaterally, which is symmetric. I spoke with Dr. Anderson and Dr. Trujillo. At this time, they feel the wound is healing and not infected. I prefer not to perform an angiogram given Ms. Abbott' renal insufficiency and likely small vessel disease. If the wound deteriorates or does not heal, an angiogram can be performed after adequate hydration and we will limit the amount of contrast. Johnathan Damian MD
[2017-07-28] MEDS: Albuterol-Ipratrop 3 mg / 0.5 (3 ml) UD IH SCH ×7 (00:30→23:38)
--- NOTE | 2017-07-28 04:04 | PN ---
DATE: 07/27/2017 SUBJECTIVE: Patient is a 71-year-old female. The patient is seen and examined on the bedside, looking comfortable. Eats better. Sitting on the recliner. Feels more awake and alert. No nausea, vomiting, or diarrhea. No hematuria or hematochezia. No headache, no dizziness. No chest pain, no palpitation. No fever, no chills. PHYSICAL EXAMINATION: VITAL SIGNS: Temperature 97.9, pulse 74, respiratory rate 16, blood pressure 143/65, pulse oximetry 99. HEENT: Head: Normocephalic, atraumatic. Eyes: PERRLA. Extraocular muscles intact. Conjunctivae clear. Nose: Patent. NECK: Supple. No carotid bruit. No JVD or thyromegaly. CHEST: Bilaterally symmetrical. HEART: S1 and S2 positive. LUNGS: Clear to auscultation. ABDOMEN: Soft. Bowel sounds positive. No organomegaly. EXTREMITIES: No edema. No cyanosis. NEUROLOGICAL: Patient is awake and alert. MEDICATIONS: DuoNeb, aspirin, Lipitor, Coreg, Plavix, Lamictal, Pepcid, Feosol, Lasix, hydralazine, daptomycin, NS, micafungin, Bactroban, Actos. LABORATORY DATA: White blood cell is 11.4, hemoglobin 9.2, hematocrit 28.4, platelets 304. Sodium 143, potassium 3.4, BUN 57, creatinine 1.7, glucose 291. ASSESSMENT AND PLAN: Ms. Tamy Abbott is a 71-year-old lady with leukocytosis, anemia, renal insufficiency, hyperglycemia, has acute renal failure, respiratory failure, hypertension, proteinuria, cellulitis and abscess with fungemia and vancomycin-resistant enterococcus bacteremia; started on micafungin and daptomycin. We will need to increase daptomycin function improved. Appreciated Dr. Reza Cosby's notes, noted. Dr. Pack and Dr. Johnathan Damian's notes noted. Continue present treatment. Repeat labs. We will follow up. Deisy Gilman MD [facility]
[2017-07-28 07:04] LABS: HEMOGLOBIN 9.8 g/dL (12.0-16.0); MEAN CELL VOLUME 78.5 fl (80.0-105.0); MEAN CORPUSCULAR HEMOGLOBIN 25.7 pg (25.0-35.0); MEAN CORPUSCULAR HGB CONC 32.7 g/dl (31.0-37.0); MEAN PLATELET VOLUME 10.2 fl (7.0-11.0); RBC 3.82 10^6/uL (3.5-6.1); RED CELL DISTRIBUTION WIDTH 16.3 % (11.5-14.5); WHITE BLOOD COUNT 12.5 10^3/ul (4.5-11.0)
[2017-07-28] MEDS: Insulin Reg-LOW-Coverage SC SCH ×3 (08:36→20:28)
[2017-07-28 08:53] LABS: ALB/GLOB RATIO 0.9 (1.1-1.8); ALBUMIN 2.7 g/dL (3.0-4.8); CALCIUM 7.8 mg/dL (8.4-10.5)
[2017-07-28] MEDS: Micafungin 100 MG in Sodium Chloride 0.9% 100 ML IV SCH (10:02)
[2017-07-28] MEDS: Mupirocin 2% Ointment 15 GM TUBE TOP SCH ×2 (10:05→20:28)
[2017-07-28] MEDS: Nystatin 100,000 Units/gm Topical Pow(15 gm) TOP SCH (10:06)
[2017-07-28] MEDS: Clotrimazole 1% Cream(30 gm) TOP SCH (10:07)
--- NOTE | 2017-07-28 13:23 | CP.PCM.PN ---
<Myron Melendez - Last Filed: 07/28/17 13:21> Subjective - Date & Time of Evaluation Date of Evaluation: 07/28/17 Time of Evaluation: 13:21 - Subjective Subjective: Podiatry Progress Note- Dr. Anderson 71 year old female seen and evaluated at bedside for left lateral non-healing ulceration with osteomyelitis and bilaterally open fissures at the digits. Patient is seen laying comfortably in bed and in NAD. Patient was awake and alert. Appears to be more alert today. Denies any pain to the lower extremity. No new pedal complaints Objective - Vital Signs/Intake and Output Vital Signs (last 24 hours): Temp Pulse Resp BP Pulse Ox 97.9 F 73 13 139/70 96 07/27/17 16:00 07/28/17 10:00 07/28/17 10:00 07/28/17 10:00 07/28/17 10:00 Intake and Output: 07/28/17 07/28/17 06:59 18:59 Intake Total 730 240 Output Total 800 252 Balance -70 -12 - Medications Medications: Current Medications Acetaminophen (Tylenol 325mg Tab) 650 mg PO Q4H PRN PRN Reason: pain fever Last Admin: 07/27/17 02:58 Dose: 650 mg Albuterol/Ipratropium (Duoneb 3 Mg/0.5 Mg (3 Ml) Ud) 3 ml IH [id number] [facility] Last Admin: 07/28/17 11:03 Dose: 3 ml Aspirin (Aspirin Chewable) 81 mg PO DAILY [facility] Last Admin: 07/28/17 10:00 Dose: 81 mg Atorvastatin Calcium (Lipitor) 40 mg PO DIN [facility] Last Admin: 07/27/17 17:02 Dose: 40 mg Carvedilol (Coreg) 12.5 mg PO Q12H [facility] Last Admin: 07/28/17 06:17 Dose: 12.5 mg Clopidogrel Bisulfate (Plavix) 75 mg PO DAILY [facility] Last Admin: 07/28/17 10:03 Dose: 75 mg Clotrimazole (Lotrimin 1%) 1 gm TOP DAILY [facility] Last Admin: 07/28/17 10:07 Dose: 1 applic Collagenase (Santyl) 1 gm TOP DAILY [facility] Last Admin: 07/27/17 10:28 Dose: Not Given Famotidine (Pepcid) 20 mg PO HS [facility] Last Admin: 07/27/17 21:28 Dose: 20 mg Ferrous Sulfate (Feosol) 324 mg PO BID [facility] Last Admin: 07/28/17 10:01 Dose: 324 mg Furosemide (Lasix) 20 mg IVP DAILY [facility] Last Admin: 07/23/17 11:39 Dose: Not Given Furosemide (Lasix) 40 mg IVP DAILY [facility] Last Admin: 07/24/17 09:33 Dose: 40 mg Hydralazine HCl (Apresoline) 10 mg IVP Q6 PRN PRN Reason: SBP >160 DBP>90 Last Admin: 07/27/17 04:20 Dose: 10 mg Hydralazine HCl (Apresoline) 50 mg PO QID [facility] Last Admin: 07/28/17 10:00 Dose: 50 mg Daptomycin 530 mg/ Sodium (Chloride) 100 mls @ 200 mls/hr IV Q48H [facility] Stop: 07/31/17 17:46 Last Admin: 07/26/17 18:44 Dose: 200 mls/hr Sodium Chloride (Sodium Chloride 0.45%) 1,000 mls @ 40 mls/hr IV .Q24H [facility] Last Admin: 07/27/17 13:04 Dose: 40 mls/hr Micafungin Sodium 100 mg/ (Sodium Chloride) 100 mls @ 100 mls/hr IV DAILY [facility] PRN Reason: Protocol Last Admin: 07/28/17 10:02 Dose: 100 mls/hr Insulin Human Regular (Humulin R Low) 0 units SC [facility] PRN Reason: Protocol Last Admin: 07/28/17 12:01 Dose: 1 units Mupirocin (Bactroban Ointment) 1 gm TOP BID [facility] Last Admin: 07/28/17 10:05 Dose: 1 appl Insulin Degludec [ Tresiba Flextouch U- 200] 30 unit SC [facility] Last Admin: 07/18/17 22:31 Dose: Not Given Nystatin (Nystop Topical Powder) 1 gm TOP DAILY [facility] Last Admin: 07/28/17 10:06 Dose: 1 applic Pioglitazone HCl (Actos) 45 mg PO DAILY [facility] Propranolol HCl (Inderal) 10 mg PO Q8 [facility] Last Admin: 07/22/17 22:20 Dose: Not Given Quetiapine Fumarate (Seroquel) 12.5 mg PO [facility] PRN Reason: Protocol Last Admin: 07/22/17 21:49 Dose: 12.5 mg Sitagliptin Phosphate (Januvia) 25 mg PO DAILY [facility] Last Admin: 07/19/17 10:29 Dose: 25 mg - Labs Labs: 07/28/17 06:53 07/28/17 08:10 PT 15.1 SECONDS (9.4-12.5) H 07/20/17 09:55 INR 1.31 (0.93-1.08) H 07/20/17 09:55 APTT 37.7 Seconds (25.1-36.5) H 07/20/17 09:55 - Constitutional Appears: Well, Non-toxic, No Acute Distress - Extremities Exam Extremities Exam: absent: Calf Tenderness Additional comments: Lower extremity focused exam: Vasc: DP and PT pulses palpable 1/4. Temperature gradient warm to cool. CFT < 3 sec x 3 digits. Mild pedal edema noted to lateral foot Derm: Clean open ulceration measuring approximately 7 cm x 3 cm x 0.6 cm to lateral forefoot with fibrogranular wound base. There is no erythema. Serous drainage noted to the dressing, no malodor, no tunneling or undermining present , no odor, no streaking, no purulence. Open plantar fissure noted to 3rd MPJ sulcus of the left foot. No clinical signs of infection. Open fissures noted to the right foot of 3rd, 4th, and 5th MPJ sulcus. No clinical signs of infection. Xerosis to the b/l foot Neuro: Protective sensation absent, gross sensation diminished Ortho: No tenderness to palpation of lateral forefoot ulceration Assessment and Plan - Assessment and Plan (Free Text) Assessment: 71 y/o diabetic female with lateral left foot full thickness ulceration with osteomyelitis and bilateral foot open fissures with likely fungal component. Plan: Patient seen and evaluated at bedside with attending Dr. Trujillo X-rays of L foot (-) for any acute osseous changes/acute OM MRI of L foot ordered-5th metatarsal OM Cleansed ulceration with saline solution. Dressed right lateral ulceration with xeroform, DSD, ABD, and kerlix to the left Right opening fissures cleansed and applied nystatin and dsd Patient to wear multipodus boots to offload LE. Wear at all times while in bed. AMISHA impression: Very limited AMISHA exam, ABIs bilateraly SFA disease, bilaterally tibial disease Wound culture + for Acinetobacter Baumanii Continue IV abx per ID No surgical intervention by podiatry Podiatry will continue to provide local wound care Podiatry will continue to follow while in house <Eboni Anderson - Last Filed: 07/31/17 16:28> Objective - Vital Signs/Intake and Output Vital Signs (last 24 hours): Temp Pulse Resp BP Pulse Ox 98.1 F 77 18 148/71 95 07/31/17 06:00 07/31/17 14:35 07/31/17 06:00 07/31/17 14:35 07/31/17 06:00 Intake and Output: 07/31/17 07/31/17 06:59 18:59 Intake Total 120 480 Balance 120 480 - Medications Medications: Current Medications Acetaminophen (Tylenol 325mg Tab) 650 mg PO Q4H PRN PRN Reason: pain fever Last Admin: 07/27/17 02:58 Dose: 650 mg Albuterol/Ipratropium (Duoneb 3 Mg/0.5 Mg (3 Ml) Ud) 3 ml IH [id number] [facility] Last Admin: 07/31/17 15:22 Dose: 3 ml Amlodipine Besylate (Norvasc) 10 mg PO DAILY [facility] Aspirin (Aspirin Chewable) 81 mg PO DAILY [facility] Last Admin: 07/31/17 10:02 Dose: 81 mg Atorvastatin Calcium (Lipitor) 40 mg PO DIN [facility] Last Admin: 07/30/17 17:18 Dose: 40 mg Carvedilol (Coreg) 25 mg PO Q12 [facility] Last Admin: 07/31/17 12:38 Dose: 25 mg Clopidogrel Bisulfate (Plavix) 75 mg PO DAILY [facility] Last Admin: 07/31/17 10:02 Dose: 75 mg Clotrimazole (Lotrimin 1%) 1 gm TOP DAILY [facility] Last Admin: 07/31/17 10:08 Dose: 1 applic Collagenase (Santyl) 1 gm TOP DAILY [facility] Last Admin: 07/31/17 10:07 Dose: 1 applic Dextrose (Dextrose 50% Inj) 50 ml IVP PRN PRN PRN Reason: PRN For blood glucose below 80 Famotidine (Pepcid) 20 mg PO HS [facility] Last Admin: 07/30/17 21:23 Dose: 20 mg Ferrous Sulfate (Feosol) 324 mg PO BID [facility] Last Admin: 07/31/17 10:02 Dose: 324 mg Furosemide (Lasix) 20 mg PO DAILY [facility] Last Admin: 07/31/17 10:01 Dose: 20 mg Hydralazine HCl (Apresoline) 10 mg IVP Q6 PRN PRN Reason: SBP >160 DBP>90 Last Admin: 07/30/17 14:24 Dose: 10 mg Hydralazine HCl (Apresoline) 75 mg PO QID [facility] Last Admin: 07/31/17 14:35 Dose: 75 mg Micafungin Sodium 100 mg/ (Sodium Chloride) 100 mls @ 100 mls/hr IV DAILY [facility] PRN Reason: Protocol Last Admin: 07/31/17 10:02 Dose: 100 mls/hr Insulin Detemir (Levemir) 10 unit SC HS [facility] Last Admin: 07/30/17 23:30 Dose: 10 unit Insulin Human Regular (Humulin R Low) 0 units SC ACHS [facility] PRN Reason: Protocol Last Admin: 07/31/17 12:37 Dose: 1 units Mupirocin (Bactroban Ointment) 1 gm TOP BID [facility] Last Admin: 07/31/17 10:08 Dose: 1 appl Nystatin (Nystop Topical Powder) 1 gm TOP DAILY [facility] Last Admin: 07/31/17 10:07 Dose: 1 applic - Labs Labs: 07/31/17 12:10 07/31/17 12:10 PT 15.1 SECONDS (9.4-12.5) H 07/20/17 09:55 INR 1.31 (0.93-1.08) H 07/20/17 09:55 APTT 37.7 Seconds (25.1-36.5) H 07/20/17 09:55 Attending/Attestation - Attestation I have personally seen and examined this patient.: Yes I have fully participated in the care of the patient.: Yes I have reviewed all pertinent clinical information, including history, physical exam and plan: Yes
--- NOTE | 2017-07-28 15:41 | PN ---
DATE: 07/24/2017 SUBJECTIVE: The patient is a 71-year-old female. The patient was seen and examined on the bedside on 07/24/2017 and looking comfortable. No nausea, vomiting, diarrhea. No hematuria or hematochezia. No swelling of the upper extremity. No headache or dizziness. No fever. No chills. PHYSICAL EXAMINATION: VITAL SIGNS: Blood pressure 177/79, respiratory rate 24, pulse oximetry 86. HEENT: Head normocephalic, atraumatic. Eyes PERRLA. Extraocular muscles intact. Conjunctivae clear. Nose patent. Mucous membrane moist. NECK: Supple. No carotid bruit. No JVD or thyromegaly. CHEST: Bilaterally symmetrical. HEART: S1 and S2 positive. LUNGS: Clear to auscultation. ABDOMEN: Soft. Bowel sounds positive. No organomegaly. EXTREMITIES: No edema. No cyanosis. NEUROLOGICAL: The patient is awake and alert. LABORATORY DATA: White blood cells 10.1, hemoglobin 9.6, platelets 320. Sodium 147, potassium 3.8, BUN 28, creatinine 1.9, glucose 161. MEDICATIONS: DuoNeb, Lipitor, Coreg, Plavix, Pepcid, Feosol, Lasix, hydralazine, insulin, Solu-Medrol. ASSESSMENT AND PLAN: Ms. Tamy Abbott, 71-year-old lady with hypoxemic respiratory failure secondary to cardiogenic versus noncardiogenic pulmonary edema in the setting of the progression of the acute kidney injury. The patient currently is on bilevel positive airway pressure. Would have low threshold for intubation. Proceeding conservatively. Discussion done with the patient's son. Nephrology is on the case. Getting antibiotics for osteomyelitis of the foot as per Infectious Disease. Gastrointestinal and deep venous thrombosis prophylaxis. Podiatry is on the case. We will repeat labs. We will follow up. Deisy Gilman MD
--- NOTE | 2017-07-28 18:07 | CP.PCM.PN ---
Subjective - Date & Time of Evaluation Date of Evaluation: 07/28/17 Time of Evaluation: 11:30 - Subjective Subjective: Reports feeling well; tolerating diet; no sob; urban removed earlier today; Objective - Vital Signs/Intake and Output Vital Signs (last 24 hours): Temp Pulse Resp BP Pulse Ox 98 F 74 20 126/70 100 07/28/17 15:13 07/28/17 15:13 07/28/17 15:13 07/28/17 15:13 07/28/17 15:13 Intake and Output: 07/28/17 07/28/17 06:59 18:59 Intake Total 730 240 Output Total 800 252 Balance -70 -12 - Medications Medications: Current Medications Acetaminophen (Tylenol 325mg Tab) 650 mg PO Q4H PRN PRN Reason: pain fever Last Admin: 07/27/17 02:58 Dose: 650 mg Albuterol/Ipratropium (Duoneb 3 Mg/0.5 Mg (3 Ml) Ud) 3 ml IH [id number] [facility] Last Admin: 07/28/17 15:37 Dose: 3 ml Aspirin (Aspirin Chewable) 81 mg PO DAILY [facility] Last Admin: 07/28/17 10:00 Dose: 81 mg Atorvastatin Calcium (Lipitor) 40 mg PO DIN [facility] Last Admin: 07/27/17 17:02 Dose: 40 mg Carvedilol (Coreg) 12.5 mg PO Q12H [facility] Last Admin: 07/28/17 06:17 Dose: 12.5 mg Clopidogrel Bisulfate (Plavix) 75 mg PO DAILY [facility] Last Admin: 07/28/17 10:03 Dose: 75 mg Clotrimazole (Lotrimin 1%) 1 gm TOP DAILY [facility] Last Admin: 07/28/17 10:07 Dose: 1 applic Collagenase (Santyl) 1 gm TOP DAILY [facility] Last Admin: 07/27/17 10:28 Dose: Not Given Famotidine (Pepcid) 20 mg PO HS [facility] Last Admin: 07/27/17 21:28 Dose: 20 mg Ferrous Sulfate (Feosol) 324 mg PO BID [facility] Last Admin: 07/28/17 10:01 Dose: 324 mg Furosemide (Lasix) 20 mg IVP DAILY [facility] Last Admin: 07/23/17 11:39 Dose: Not Given Furosemide (Lasix) 40 mg IVP DAILY [facility] Last Admin: 07/24/17 09:33 Dose: 40 mg Hydralazine HCl (Apresoline) 10 mg IVP Q6 PRN PRN Reason: SBP >160 DBP>90 Last Admin: 07/27/17 04:20 Dose: 10 mg Hydralazine HCl (Apresoline) 50 mg PO QID [facility] Last Admin: 07/28/17 14:58 Dose: 50 mg Daptomycin 530 mg/ Sodium (Chloride) 100 mls @ 200 mls/hr IV Q48H [facility] Stop: 07/31/17 17:46 Last Admin: 07/26/17 18:44 Dose: 200 mls/hr Sodium Chloride (Sodium Chloride 0.45%) 1,000 mls @ 40 mls/hr IV .Q24H [facility] Last Admin: 07/27/17 13:04 Dose: 40 mls/hr Micafungin Sodium 100 mg/ (Sodium Chloride) 100 mls @ 100 mls/hr IV DAILY [facility] PRN Reason: Protocol Last Admin: 07/28/17 10:02 Dose: 100 mls/hr Insulin Human Regular (Humulin R Low) 0 units SC ACHS [facility] PRN Reason: Protocol Last Admin: 07/28/17 12:01 Dose: 1 units Mupirocin (Bactroban Ointment) 1 gm TOP BID [facility] Last Admin: 07/28/17 10:05 Dose: 1 appl Insulin Degludec [ Tresiba Flextouch U- 200] 30 unit SC HS [facility] Last Admin: 07/18/17 22:31 Dose: Not Given Nystatin (Nystop Topical Powder) 1 gm TOP DAILY [facility] Last Admin: 07/28/17 10:06 Dose: 1 applic Pioglitazone HCl (Actos) 45 mg PO DAILY [facility] Propranolol HCl (Inderal) 10 mg PO Q8 [facility] Last Admin: 07/22/17 22:20 Dose: Not Given Quetiapine Fumarate (Seroquel) 12.5 mg PO HS [facility] PRN Reason: Protocol Last Admin: 07/22/17 21:49 Dose: 12.5 mg Sitagliptin Phosphate (Januvia) 25 mg PO DAILY [facility] Last Admin: 07/19/17 10:29 Dose: 25 mg - Labs Labs: 07/28/17 06:53 07/28/17 08:10 PT 15.1 SECONDS (9.4-12.5) H 07/20/17 09:55 INR 1.31 (0.93-1.08) H 07/20/17 09:55 APTT 37.7 Seconds (25.1-36.5) H 07/20/17 09:55 - Constitutional Appears: Non-toxic, No Acute Distress - Eye Exam Eye Exam: absent: Scleral icterus - ENT Exam ENT Exam: Mucous Membranes Moist - Respiratory Exam Respiratory Exam: Clear to Ausculation Bilateral. absent: Respiratory Distress - Cardiovascular Exam Cardiovascular Exam: RRR, +S1 - GI/Abdominal Exam GI & Abdominal Exam: Soft. absent: Distended, Tenderness - Extremities Exam Additional comments: mild/moderate b/l leg edema; - Neurological Exam Neurological Exam: Alert, Awake - Psychiatric Exam Psychiatric exam: Normal Mood. absent: Agitated - Skin Skin Exam: Warm. 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
--- NOTE | 2017-07-28 18:52 | CP.PCM.PN ---
Subjective - Date & Time of Evaluation Date of Evaluation: 07/28/17 Time of Evaluation: 16:00 - Subjective Subjective: Infectious Disease Follow Up: July 28, 2017 71 yo AA female sent from [facility] for poor responsiveness. 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 History of E. coli and enterococcus. The E. coli is ESBL+. The patient can give little history of her own. She is currently awake and alert now. The patient was on IV Vancomycin at [place]. Unclear if she was still on Meropenem there. Renal insufficiency. The patient had normal creatinine in June 2017. Still elevated creatinine. Unclear if this is secondary to several factors such as dehydration, poor appetite, and use of Vancomycin. Vancomycin remains high at 35.4 but she did get a dose in hospital early in the hospital course. At best the patient is AAO x 1. The patient has very uneven behavior... I'm not sure if this is her normal vs. AMS. Remains agitated. Wound cultures showing gram negative rods identified as MDR Acinetobacter. Urine with yeast. Patient found unresponsive yesterday AM. The patient had rapid response and Code Stroke called. Found to be severely hypertensive yesterday AM. Taken to ICU for further care. The patient has improved since transfer to ICU and is currently awake and alert. Patient does not always make sense when speaking but that is close to her baseline. Creatinine remains elevated at 1.7. Overnight no new issues. Patient is more or less at baseline mental status. However, late yesterday afternoon, the patient had difficulty breathing again. Case discussed with Dr. Lim the Windows Server Specialist. Switched Meropenem to Tygacil a few days ago. She remains on BiPAP. Episodes of hypothermia three nights ago down to 88.3. Normal temperatures last night and for the last two nights. Clinically, the patient has improved. The patient is awake and alert. She appears to be answering questions appropriately. No additional complaints. Patient requesting a hamburger or hot dog now. Currently on Daptomycin and Mycamine. Vandana growth in aerobic bottle. Fungitell test pending. Objective - Vital Signs/Intake and Output Vital Signs (last 24 hours): Temp Pulse Resp BP Pulse Ox 98 F 74 20 126/70 100 07/28/17 15:13 07/28/17 15:13 07/28/17 15:13 07/28/17 15:13 07/28/17 15:13 Intake and Output: 07/28/17 07/28/17 06:59 18:59 Intake Total 730 240 Output Total 800 252 Balance -70 -12 - Medications Medications: Current Medications Acetaminophen (Tylenol 325mg Tab) 650 mg PO Q4H PRN PRN Reason: pain fever Last Admin: 07/27/17 02:58 Dose: 650 mg Albuterol/Ipratropium (Duoneb 3 Mg/0.5 Mg (3 Ml) Ud) 3 ml IH [id number] [facility] Last Admin: 07/28/17 15:37 Dose: 3 ml Aspirin (Aspirin Chewable) 81 mg PO DAILY [facility] Last Admin: 07/28/17 10:00 Dose: 81 mg Atorvastatin Calcium (Lipitor) 40 mg PO DIN [facility] Last Admin: 07/27/17 17:02 Dose: 40 mg Carvedilol (Coreg) 12.5 mg PO Q12H [facility] Last Admin: 07/28/17 06:17 Dose: 12.5 mg Clopidogrel Bisulfate (Plavix) 75 mg PO DAILY [facility] Last Admin: 07/28/17 10:03 Dose: 75 mg Clotrimazole (Lotrimin 1%) 1 gm TOP DAILY [facility] Last Admin: 07/28/17 10:07 Dose: 1 applic Collagenase (Santyl) 1 gm TOP DAILY [facility] Last Admin: 07/27/17 10:28 Dose: Not Given Famotidine (Pepcid) 20 mg PO HS [facility] Last Admin: 07/27/17 21:28 Dose: 20 mg Ferrous Sulfate (Feosol) 324 mg PO BID [facility] Last Admin: 07/28/17 10:01 Dose: 324 mg Furosemide (Lasix) 20 mg IVP DAILY [facility] Last Admin: 07/23/17 11:39 Dose: Not Given Furosemide (Lasix) 40 mg IVP DAILY [facility] Last Admin: 07/24/17 09:33 Dose: 40 mg Hydralazine HCl (Apresoline) 10 mg IVP Q6 PRN PRN Reason: SBP >160 DBP>90 Last Admin: 07/27/17 04:20 Dose: 10 mg Hydralazine HCl (Apresoline) 50 mg PO QID [facility] Last Admin: 07/28/17 14:58 Dose: 50 mg Daptomycin 530 mg/ Sodium (Chloride) 100 mls @ 200 mls/hr IV Q48H [facility] Stop: 07/31/17 17:46 Last Admin: 07/26/17 18:44 Dose: 200 mls/hr Sodium Chloride (Sodium Chloride 0.45%) 1,000 mls @ 40 mls/hr IV .Q24H [facility] Last Admin: 07/27/17 13:04 Dose: 40 mls/hr Micafungin Sodium 100 mg/ (Sodium Chloride) 100 mls @ 100 mls/hr IV DAILY [facility] PRN Reason: Protocol Last Admin: 07/28/17 10:02 Dose: 100 mls/hr Insulin Human Regular (Humulin R Low) 0 units SC ACHS [facility] PRN Reason: Protocol Last Admin: 07/28/17 12:01 Dose: 1 units Mupirocin (Bactroban Ointment) 1 gm TOP BID [facility] Last Admin: 07/28/17 10:05 Dose: 1 appl Insulin Degludec [ Tresiba Flextouch U- 200] 30 unit SC HS [facility] Last Admin: 07/18/17 22:31 Dose: Not Given Nystatin (Nystop Topical Powder) 1 gm TOP DAILY [facility] Last Admin: 07/28/17 10:06 Dose: 1 applic Pioglitazone HCl (Actos) 45 mg PO DAILY [facility] Propranolol HCl (Inderal) 10 mg PO Q8 [facility] Last Admin: 07/22/17 22:20 Dose: Not Given Quetiapine Fumarate (Seroquel) 12.5 mg PO HS [facility] PRN Reason: Protocol Last Admin: 07/22/17 21:49 Dose: 12.5 mg Sitagliptin Phosphate (Januvia) 25 mg PO DAILY [facility] Last Admin: 07/19/17 10:29 Dose: 25 mg - Labs Labs: 07/28/17 06:53 07/28/17 08:10 PT 15.1 SECONDS (9.4-12.5) H 07/20/17 09:55 INR 1.31 (0.93-1.08) H 07/20/17 09:55 APTT 37.7 Seconds (25.1-36.5) H 07/20/17 09:55 - Constitutional Appears: Non-toxic, No Acute Distress, Chronically Ill - Head Exam Head Exam: ATRAUMATIC, NORMOCEPHALIC - Eye Exam Pupil Exam: Unequal Additional comments: right eye 3 mm, left eye 4 mm - ENT Exam ENT Exam: Mucous Membranes Moist, Normal External Ear Exam, TM's Normal Bilaterally - Neck Exam Neck Exam: Full ROM, Normal Inspection - Respiratory Exam Respiratory Exam: Clear to Ausculation Bilateral, NORMAL BREATHING PATTERN. absent: Rales, Rhonchi, Wheezes - Cardiovascular Exam Cardiovascular Exam: REGULAR RHYTHM, RRR, +S1, +S2 - GI/Abdominal Exam GI & Abdominal Exam: Soft, Normal Bowel Sounds. absent: Distended, Tenderness - Extremities Exam Extremities Exam: Full ROM, Normal Inspection - Neurological Exam Neurological Exam: Alert, Awake, CN II-XII Intact Additional comments: AAO x 2. Awake and alert. Answers quickly and appropriately. - Psychiatric Exam Psychiatric exam: Normal Affect, Normal Mood - Skin Skin Exam: Intact, Normal Color Assessment and Plan - Assessment and Plan (Free Text) Assessment: 71 yo AA female with altered renal function and was poorly responsive at [facility]. The patient was on Vancomycin for antibiotic treatment. Will restart Meropenem and check Vancomycin levels fist given worsening creatinine levels. Local wound care. Still with decreased renal function despite normal values in the early part of June 2017. Likely multiple factors contributing to this including dehydration , poor oral appetite, and use of Vancomycin antibiotics. Unclear if the renal function will recover at this point... it is too early to tell. Recheck creatinine tomorrow. May need to consider Zyvox over Vancomycin for treatment given renal function. Check Vancomycin level tomorrow again. Level currently is 35.4 taken about 24 hours after the last administration of IV Vancomycin. Possible consideration of Zyvox use after Vancomycin levels normalize and if culture still suggest Enterococcus infection. Podiatry has recultured with foot. Will continue with renally dosed meropenem for now. Gram negative rods in wound cultures of the foot identified as MDR Acinetobacter. Will check with lab regarding sensitivities to additional antibiotics. For now remains on meropenem. Brought to MICU after being found unresponsive. Severely hypertensive during rapid response. After a few hours in the MICU, the patient is now awake and alert. Continuing on meropenem. The patient has been afebrile and has had no leukocytosis. No new issues overnight. Creatinine stayed at 1.7 today. No leukocytosis. The patient had difficulty breathing mid hospitalization. Antibiotics were switched from meropenem to tigecycline. Patient is still lethargic but more arousable. Hypothermic several nights ago... normal temperatures overnight. Was on Zyvox and Meropenem for IV antibiotics. Awaiting final blood cultures ( coagulase positive cocci in clusters). Currently on Tigecycline. The patient improved significantly since started on Tigecycline. VRE in urine and one blood culture. Yeast in urine and one blood culture. Removal or exchange of all indwelling catheters strongly recommended. Spoke with Dr. Lim. Daptomycin started for VRE. Would obtain Beta-D- Glucan test. Repeat cultures. Vandana in one blood culture. Given QT interval , may consider use of Micafungin. Source of fungi likely the PICC line that was used to administer antibiotics (it appears to have been in for 3-4 months) which the Patient removed herself earlier in this hospitalization. Beta-D- Glucan test pending. One blood culture showing Vandana growth. Supportive care. Thank you for allowing me to participate in the care of the patient, we will follow with you.
--- NOTE | 2017-07-28 22:50 | PN ---
DATE: 07/28/2017 SUBJECTIVE: The patient is a 71-year-old female. The patient was seen and examined on the bedside, looking comfortable. No nausea, vomiting, diarrhea. No hematuria or hematochezia. No headache. No dizziness. No chest pain or palpitation. No fever. No chills. PHYSICAL EXAMINATION: VITAL SIGNS: Temperature 98, pulse 74, respiratory rate 20, Blood pressure 126/70, pulse oximetry 100. MEDICATIONS: Tylenol, DuoNeb, aspirin, Lipitor, Plavix, clotrimazole, Pepcid, Lasix, micafungin, insulin. LABORATORY DATA: White blood cells 12.5, hemoglobin 9.8, hematocrit 30, platelets 305. Sodium 142, potassium 3.6, BUN 55, creatinine 1.7, glucose 212. ASSESSMENT AND PLAN: Ms. Scar Morelos is a 71-year-old lady with leukocytosis, anemia, renal insufficiency, hyperglycemia, has acute renal failure, respiratory failure, hypertension, proteinuria, cellulitis and abscess. Nephrology is on the case. ID is on the case also. The patient has a history of dementia. She is legally blind. Gastrointestinal and deep venous thrombosis prophylaxis. Getting IV antibiotics. Has fungemia. Repeat labs. We will follow up. Deisy Gilman MD
[2017-07-29] MEDS: Insulin Reg-LOW-Coverage SC SCH ×5 (00:48→21:30)
[2017-07-29] MEDS: Albuterol-Ipratrop 3 mg / 0.5 (3 ml) UD IH SCH ×5 (04:44→20:45)
--- NOTE | 2017-07-29 08:06 | PN ---
DATE: 07/28/2017 SUBJECTIVE: Patient is a 71-year-old female. Patient was seen and examined on 07/28/2017. Looking comfortable. No nausea, vomiting, diarrhea. No hematuria or hematochezia. No headache, no dizziness. Awake and alert. PHYSICAL EXAMINATION: VITAL SIGNS: Temperature 97.6, pulse 80, blood pressure 174/73, respiratory rate 20. HEENT: Head: Normocephalic, atraumatic. Eyes: PERRLA. Extraocular muscles intact. Conjunctivae clear. Nose: Patent. NECK: Supple. No carotid bruit. No JVD or thyromegaly. CHEST: Bilaterally symmetrical. HEART: S1 and S2 positive. LUNGS: Clear to auscultation. ABDOMEN: Soft. Bowel sounds positive. No organomegaly. EXTREMITIES: No edema. No cyanosis. NEUROLOGICAL: Patient is awake, obeying simple orders. MEDICATIONS: Actos, hydralazine, aspirin, Bactroban ointment, Coreg, daptomycin, ferrous sulfate, insulin, Januvia, Lasix, Lipitor, micafungin, nystatin topically, Pepcid, Plavix, Tylenol. LABORATORY DATA: White blood cells 12.5, hemoglobin 9.8, hematocrit 30, platelets 305. Sodium 142, potassium 3.6, BUN 55, creatinine 1.7, glucose 193. Calcium 7.8. ASSESSMENT AND PLAN: Ms. Tamy Abbott, 71-year-old lady with leukocytosis, anemia, renal insufficiency, hyperglycemia, hypocalcemia, low albumin, has proteinuria, hematuria, urinary tract infection. Stool occult positive. Patient is legally blind, nonhealing foot ulcer with osteomyelitis and bilateral open fissures at the digits. Podiatry is on the case. Now, the patient has fungemia, getting antifungal, history of rapid response. atient has improved a lot Dr. Pack spoke to Dr. Lim daptomycin started for vancomycin-resistant Enterococcus. We will obtain [id number] test. Repeat culture, Vandana in one blood culture. Given acute interval, may consider use of micafungin. Source of fungi likely the peripherally inserted central catheter line that was used for administration of antibiotics, which the patient removed herself earlier in the hospitalization. We will continue present treatment. Gastrointestinal and deep venous thrombosis prophylaxis. Repeat labs. We will follow up. Deisy Gilman MD [facility] # [id number] [place]
[2017-07-29 10:26] LABS: EOS # 0.3 (0.0-0.7); EOS % 2.7 % (1.5-5.0); GRAN # 7.36 (1.4-6.5); GRAN % 72.8 % (50.0-68.0); HEMOGLOBIN 9.2 g/dL (12.0-16.0); LYMPH # 1.6 (1.2-3.4); LYMPH % 15.3 % (22.0-35.0); MEAN CELL VOLUME 78.8 fl (80.0-105.0); MEAN CORPUSCULAR HEMOGLOBIN 25.6 pg (25.0-35.0); MEAN CORPUSCULAR HGB CONC 32.5 g/dl (31.0-37.0); MEAN PLATELET VOLUME 10.8 fl (7.0-11.0); MONO # 0.9 (0.1-0.6); MONO % 9.2 % (1.0-6.0); RBC 3.59 10^6/uL (3.5-6.1); WHITE BLOOD COUNT 10.1 10^3/ul (4.5-11.0)
[2017-07-29 10:38] LABS: ALB/GLOB RATIO 0.8 (1.1-1.8); ALBUMIN 2.6 g/dL (3.0-4.8); CALCIUM 7.9 mg/dL (8.4-10.5)
[2017-07-29] MEDS: Micafungin 100 MG in Sodium Chloride 0.9% 100 ML IV SCH (10:41)
[2017-07-29] MEDS ORDERED: Potassium Chloride 20 mEq ER Tab PO ONE (11:09)
[2017-07-29] MEDS: Collagenase 250 Units/gm Ointment(30 gm) TOP SCH (12:43)
[2017-07-29] MEDS: Clotrimazole 1% Cream(30 gm) TOP SCH (12:44)
[2017-07-29] MEDS: Nystatin 100,000 Units/gm Topical Pow(15 gm) TOP SCH (12:44)
[2017-07-29] MEDS: Mupirocin 2% Ointment 15 GM TUBE TOP SCH ×2 (12:45→18:04)
--- NOTE | 2017-07-29 15:30 | CP.PCM.PN ---
Subjective - Date & Time of Evaluation Date of Evaluation: 07/29/17 Time of Evaluation: 14:30 - Subjective Subjective: Infectious Disease Follow Up: July 29, 2017 71 yo AA female sent from [facility] for poor responsiveness. 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 History of E. coli and enterococcus. The E. coli is ESBL+. The patient can give little history of her own. She is currently awake and alert now. The patient was on IV Vancomycin at [place]. Unclear if she was still on Meropenem there. Renal insufficiency. The patient had normal creatinine in June 2017. Still elevated creatinine. Unclear if this is secondary to several factors such as dehydration, poor appetite, and use of Vancomycin. Vancomycin remains high at 35.4 but she did get a dose in hospital early in the hospital course. The patient is AAO x 1-2. The patient has very uneven behavior... I'm not sure if this is her normal vs. AMS. Remains agitated. Wound cultures showing gram negative rods identified as MDR Acinetobacter. Urine with yeast. Patient found unresponsive yesterday AM. The patient had rapid response and Code Stroke called. Found to be severely hypertensive yesterday AM. Taken to ICU for further care. The patient has improved since transfer to ICU and is currently awake and alert. Patient does not always make sense when speaking but that is close to her baseline. Creatinine remains elevated at 1.7. Overnight no new issues. Patient is more or less at baseline mental status. However, late yesterday afternoon, the patient had difficulty breathing again. Case discussed with Dr. Lim the Oven Worker. Switched Meropenem to Tygacil a few days ago. She remains on BiPAP. Episodes of hypothermia several nights ago down to 88.3. Normal temperatures for the last few nights. Clinically, the patient has improved. The patient is awake and alert. She appears to be answering questions appropriately. No additional complaints. Patient requesting a hamburger or hot dog now. Currently on Daptomycin and Mycamine. Vandana growth in aerobic bottle. Fungitell test pending. Objective - Vital Signs/Intake and Output Vital Signs (last 24 hours): Temp Pulse Resp BP Pulse Ox 97.9 F 74 18 146/73 100 07/29/17 14:00 07/29/17 14:00 07/29/17 14:00 07/29/17 14:00 07/29/17 14:00 Intake and Output: 07/29/17 07/29/17 06:59 18:59 Intake Total 660 Balance 660 - Medications Medications: Current Medications Acetaminophen (Tylenol 325mg Tab) 650 mg PO Q4H PRN PRN Reason: pain fever Last Admin: 07/27/17 02:58 Dose: 650 mg Albuterol/Ipratropium (Duoneb 3 Mg/0.5 Mg (3 Ml) Ud) 3 ml IH [id number] [facility] Last Admin: 07/29/17 11:20 Dose: 3 ml Aspirin (Aspirin Chewable) 81 mg PO DAILY [facility] Last Admin: 07/29/17 10:40 Dose: 81 mg Atorvastatin Calcium (Lipitor) 40 mg PO DIN [facility] Last Admin: 07/28/17 18:07 Dose: 40 mg Carvedilol (Coreg) 12.5 mg PO Q12H [facility] Last Admin: 07/28/17 20:50 Dose: 12.5 mg Clopidogrel Bisulfate (Plavix) 75 mg PO DAILY [facility] Last Admin: 07/29/17 10:14 Dose: 75 mg Clotrimazole (Lotrimin 1%) 1 gm TOP DAILY [facility] Last Admin: 07/29/17 12:44 Dose: 1 applic Collagenase (Santyl) 1 gm TOP DAILY [facility] Last Admin: 07/29/17 12:43 Dose: 1 applic Famotidine (Pepcid) 20 mg PO HS [facility] Last Admin: 07/28/17 21:02 Dose: 20 mg Ferrous Sulfate (Feosol) 324 mg PO BID [facility] Last Admin: 07/29/17 10:14 Dose: 324 mg Furosemide (Lasix) 20 mg IVP 0600 [facility] Furosemide (Lasix) 20 mg PO DAILY [facility] Hydralazine HCl (Apresoline) 10 mg IVP Q6 PRN PRN Reason: SBP >160 DBP>90 Last Admin: 07/27/17 04:20 Dose: 10 mg Hydralazine HCl (Apresoline) 75 mg PO QID [facility] Micafungin Sodium 100 mg/ (Sodium Chloride) 100 mls @ 100 mls/hr IV DAILY [facility] PRN Reason: Protocol Last Admin: 07/29/17 10:41 Dose: 100 mls/hr Insulin Detemir (Levemir) 10 unit SC [facility] Insulin Human Regular (Humulin R Low) 0 units SC ACHS [facility] PRN Reason: Protocol Mupirocin (Bactroban Ointment) 1 gm TOP BID [facility] Last Admin: 07/29/17 12:45 Dose: 1 appl Nystatin (Nystop Topical Powder) 1 gm TOP DAILY [facility] Last Admin: 07/29/17 12:44 Dose: 1 applic - Labs Labs: 07/29/17 07:30 07/29/17 07:30 PT 15.1 SECONDS (9.4-12.5) H 07/20/17 09:55 INR 1.31 (0.93-1.08) H 07/20/17 09:55 APTT 37.7 Seconds (25.1-36.5) H 07/20/17 09:55 - Constitutional Appears: Non-toxic, No Acute Distress, Chronically Ill - Head Exam Head Exam: ATRAUMATIC, NORMOCEPHALIC - Eye Exam Pupil Exam: Unequal Additional comments: right eye 3 mm, left eye 4 mm - ENT Exam ENT Exam: Mucous Membranes Moist, Normal External Ear Exam, TM's Normal Bilaterally - Neck Exam Neck Exam: Full ROM, Normal Inspection - Respiratory Exam Respiratory Exam: Clear to Ausculation Bilateral, NORMAL BREATHING PATTERN. absent: Rales, Rhonchi, Wheezes - Cardiovascular Exam Cardiovascular Exam: REGULAR RHYTHM, RRR, +S1, +S2 - GI/Abdominal Exam GI & Abdominal Exam: Soft, Normal Bowel Sounds. absent: Distended, Tenderness - Extremities Exam Extremities Exam: Full ROM, Normal Inspection - Neurological Exam Neurological Exam: Alert, Awake, CN II-XII Intact Additional comments: AAO x 2. Awake and alrt. Answering questions appropriately. - Psychiatric Exam Psychiatric exam: Normal Affect, Normal Mood - Skin Skin Exam: Intact, Normal Color Assessment and Plan - Assessment and Plan (Free Text) Assessment: 71 yo AA female with altered renal function and was poorly responsive at [facility]. The patient was on Vancomycin for antibiotic treatment. Will restart Meropenem and check Vancomycin levels fist given worsening creatinine levels. Local wound care. Still with decreased renal function despite normal values in the early part of June 2017. Likely multiple factors contributing to this including dehydration , poor oral appetite, and use of Vancomycin antibiotics. Unclear if the renal function will recover at this point... it is too early to tell. Recheck creatinine tomorrow. May need to consider Zyvox over Vancomycin for treatment given renal function. Check Vancomycin level tomorrow again. Level currently is 35.4 taken about 24 hours after the last administration of IV Vancomycin. Possible consideration of Zyvox use after Vancomycin levels normalize and if culture still suggest Enterococcus infection. Podiatry had recultured the foot during this hospitalization. Gram negative rods in wound cultures of the foot identified as MDR Acinetobacter. Will check with lab regarding sensitivities to additional antibiotics. The patient had received several days of meropenem. Brought to MICU after being found unresponsive. Severely hypertensive during rapid response. After a few hours in the MICU, the patient is now awake and alert. Continuing on meropenem. The patient has been afebrile and has had no leukocytosis. No new issues overnight. Creatinine stayed at 1.4 today. No leukocytosis (10.1 today). The patient had difficulty breathing mid hospitalization. Antibiotics were switched from meropenem to tigecycline. Patient is still lethargic but more arousable. Hypothermic several nights ago... normal temperatures overnight. Was on Zyvox and Meropenem for IV antibiotics. Awaiting final blood cultures ( coagulase positive cocci in clusters). Was on Tigecycline. The patient improved significantly since started on Tigecycline. VRE in urine and one blood culture. Yeast in urine and one blood culture. Removal or exchange of all indwelling catheters strongly recommended. On Daptomycin for VRE. Awaiting results of [id number] test. Repeat cultures. Vandana in one blood culture. Given QT interval cannot utilized fluconazole, may consider use of Micafungin. Source of fungi likely the PICC line that was used to administer antibiotics (it appears to have been in for 3- 4 months) which the Patient removed herself earlier in this hospitalization. [id number] test pending. One blood culture showing Vandana growth. Supportive care. If Fungitell ([id number] test) negative, may consider stopping Mycamine. Consideration of 2 more doses of Daptomycin and at least 7 days of Micafungin. Thank you for allowing me to participate in the care of the patient, we will follow with you.
[2017-07-29] MEDS ORDERED: Insulin Reg-MEDIUM-Coverage SC SCH (16:30)
--- NOTE | 2017-07-29 19:32 | CP.PCM.PN ---
Subjective - Date & Time of Evaluation Date of Evaluation: 07/29/17 Time of Evaluation: 11:00 - Subjective Subjective: Patient reports feeling well; no sob; tolerating diet without nausea/vomiting; Objective - Vital Signs/Intake and Output Vital Signs (last 24 hours): Temp Pulse Resp BP Pulse Ox 97.9 F 74 18 146/73 100 07/29/17 14:00 07/29/17 14:00 07/29/17 14:00 07/29/17 18:05 07/29/17 15:27 - Medications Medications: Current Medications Acetaminophen (Tylenol 325mg Tab) 650 mg PO Q4H PRN PRN Reason: pain fever Last Admin: 07/27/17 02:58 Dose: 650 mg Albuterol/Ipratropium (Duoneb 3 Mg/0.5 Mg (3 Ml) Ud) 3 ml IH [id number] [facility] Last Admin: 07/29/17 15:52 Dose: 3 ml Aspirin (Aspirin Chewable) 81 mg PO DAILY [facility] Last Admin: 07/29/17 10:40 Dose: 81 mg Atorvastatin Calcium (Lipitor) 40 mg PO DIN [facility] Last Admin: 07/29/17 18:07 Dose: 40 mg Carvedilol (Coreg) 12.5 mg PO Q12H [facility] Last Admin: 07/29/17 18:05 Dose: 12.5 mg Clopidogrel Bisulfate (Plavix) 75 mg PO DAILY [facility] Last Admin: 07/29/17 10:14 Dose: 75 mg Clotrimazole (Lotrimin 1%) 1 gm TOP DAILY [facility] Last Admin: 07/29/17 12:44 Dose: 1 applic Collagenase (Santyl) 1 gm TOP DAILY [facility] Last Admin: 07/29/17 12:43 Dose: 1 applic Famotidine (Pepcid) 20 mg PO HS [facility] Last Admin: 07/28/17 21:02 Dose: 20 mg Ferrous Sulfate (Feosol) 324 mg PO BID [facility] Last Admin: 07/29/17 18:06 Dose: 324 mg Furosemide (Lasix) 20 mg IVP 0600 [facility] Furosemide (Lasix) 20 mg PO DAILY [facility] Hydralazine HCl (Apresoline) 10 mg IVP Q6 PRN PRN Reason: SBP >160 DBP>90 Last Admin: 07/27/17 04:20 Dose: 10 mg Hydralazine HCl (Apresoline) 75 mg PO QID [facility] Last Admin: 07/29/17 18:03 Dose: 75 mg Micafungin Sodium 100 mg/ (Sodium Chloride) 100 mls @ 100 mls/hr IV DAILY [facility] PRN Reason: Protocol Last Admin: 07/29/17 10:41 Dose: 100 mls/hr Insulin Detemir (Levemir) 10 unit SC HS [facility] Insulin Human Regular (Humulin R Low) 0 units SC ACHS [facility] PRN Reason: Protocol Last Admin: 07/29/17 18:07 Dose: 1 units Mupirocin (Bactroban Ointment) 1 gm TOP BID [facility] Last Admin: 07/29/17 18:04 Dose: 1 appl Nystatin (Nystop Topical Powder) 1 gm TOP DAILY [facility] Last Admin: 07/29/17 12:44 Dose: 1 applic - Labs Labs: 07/29/17 07:30 07/29/17 07:30 PT 15.1 SECONDS (9.4-12.5) H 07/20/17 09:55 INR 1.31 (0.93-1.08) H 07/20/17 09:55 APTT 37.7 Seconds (25.1-36.5) H 07/20/17 09:55 - Constitutional Appears: Non-toxic, No Acute Distress - Eye Exam Eye Exam: absent: Scleral icterus - ENT Exam ENT Exam: Mucous Membranes Moist - Respiratory Exam Respiratory Exam: Clear to Ausculation Bilateral. absent: Respiratory Distress - Cardiovascular Exam Cardiovascular Exam: RRR, +S1 - GI/Abdominal Exam GI & Abdominal Exam: Soft. absent: Distended, Tenderness - Exam Exam: absent: Bladder Distension - Extremities Exam Additional comments: mild b/l leg edema, improved; - Neurological Exam Neurological Exam: Alert, Awake - Psychiatric Exam Psychiatric exam: Normal Mood. absent: Agitated - Skin Skin Exam: Warm. absent: Cyanosis Assessment and Plan (1) Acute renal failure Assessment & Plan: ATN, resolving; mild hypokalemia noted, K supplemented; continue to avoid nephrotoxic agents; Status: Acute (2) Respiratory failure Status: Acute (3) Hypertension Assessment & Plan: BP better controlled on increased dose of hydralazine, now 75 mg qid; continue along with coreg 12.5 mg bid; starting small dose of PO lasix 20 mg daily; Status: Acute (4) Proteinuria Status: Acute (5) Cellulitis and abscess Assessment & Plan: With fungemia and VRE bacteremia; on daptomycin and micafungin; daptomycin frequency will need to be increased with improving renal function; Status: Acute
[2017-07-29] MEDS ORDERED: Dextrose 50% SYRINGE Inj (50 ml) ONE (21:21)
[2017-07-29] MEDS: Insulin Detemir 100 units/ml Vial (Levemir) SC SCH (21:26)
[2017-07-29] MEDS ORDERED: Dextrose 50% SYRINGE Inj (50 ml) IVP ONE (21:28)
[2017-07-29] MEDS ORDERED: Dextrose 50% SYRINGE Inj (50 ml) IVP PRN (21:33)
--- NOTE | 2017-07-29 21:34 | CP.PCM.PN ---
<Myron Melendez - Last Filed: 07/29/17 21:31> Subjective - Date & Time of Evaluation Date of Evaluation: 07/29/17 Time of Evaluation: 13:00 - Subjective Subjective: Podiatry Progress Note- Dr. Trujillo 71 year old female seen and evaluated at bedside for left lateral non-healing ulceration with osteomyelitis and bilaterally open fissures at the digits.Patient is seen laying comfortably in bed and in NAD. Patient was awake and alert. Denies acute overnight events. Family at bedside during visitation. Denies any pain to the lower extremity. No new pedal complaints Objective - Vital Signs/Intake and Output Vital Signs (last 24 hours): Temp Pulse Resp BP Pulse Ox 97.9 F 74 18 146/73 100 07/29/17 14:00 07/29/17 14:00 07/29/17 14:00 07/29/17 18:05 07/29/17 15:27 - Medications Medications: Current Medications Acetaminophen (Tylenol 325mg Tab) 650 mg PO Q4H PRN PRN Reason: pain fever Last Admin: 07/27/17 02:58 Dose: 650 mg Albuterol/Ipratropium (Duoneb 3 Mg/0.5 Mg (3 Ml) Ud) 3 ml IH [id number] [facility] Last Admin: 07/29/17 20:45 Dose: 3 ml Aspirin (Aspirin Chewable) 81 mg PO DAILY [facility] Last Admin: 07/29/17 10:40 Dose: 81 mg Atorvastatin Calcium (Lipitor) 40 mg PO DIN [facility] Last Admin: 07/29/17 18:07 Dose: 40 mg Carvedilol (Coreg) 12.5 mg PO Q12H [facility] Last Admin: 07/29/17 18:05 Dose: 12.5 mg Clopidogrel Bisulfate (Plavix) 75 mg PO DAILY [facility] Last Admin: 07/29/17 10:14 Dose: 75 mg Clotrimazole (Lotrimin 1%) 1 gm TOP DAILY [facility] Last Admin: 07/29/17 12:44 Dose: 1 applic Collagenase (Santyl) 1 gm TOP DAILY [facility] Last Admin: 07/29/17 12:43 Dose: 1 applic Famotidine (Pepcid) 20 mg PO HS [facility] Last Admin: 07/28/17 21:02 Dose: 20 mg Ferrous Sulfate (Feosol) 324 mg PO BID [facility] Last Admin: 07/29/17 18:06 Dose: 324 mg Furosemide (Lasix) 20 mg IVP 0600 [facility] Furosemide (Lasix) 20 mg PO DAILY [facility] Hydralazine HCl (Apresoline) 10 mg IVP Q6 PRN PRN Reason: SBP >160 DBP>90 Last Admin: 07/27/17 04:20 Dose: 10 mg Hydralazine HCl (Apresoline) 75 mg PO QID [facility] Last Admin: 07/29/17 18:03 Dose: 75 mg Micafungin Sodium 100 mg/ (Sodium Chloride) 100 mls @ 100 mls/hr IV DAILY [facility] PRN Reason: Protocol Last Admin: 07/29/17 10:41 Dose: 100 mls/hr Insulin Detemir (Levemir) 10 unit SC HS [facility] Insulin Human Regular (Humulin R Low) 0 units SC ACHS [facility] PRN Reason: Protocol Last Admin: 07/29/17 18:07 Dose: 1 units Mupirocin (Bactroban Ointment) 1 gm TOP BID [facility] Last Admin: 07/29/17 18:04 Dose: 1 appl Nystatin (Nystop Topical Powder) 1 gm TOP DAILY [facility] Last Admin: 07/29/17 12:44 Dose: 1 applic - Labs Labs: 07/29/17 07:30 07/29/17 07:30 PT 15.1 SECONDS (9.4-12.5) H 07/20/17 09:55 INR 1.31 (0.93-1.08) H 07/20/17 09:55 APTT 37.7 Seconds (25.1-36.5) H 07/20/17 09:55 - Constitutional Appears: Well, Non-toxic, No Acute Distress - Extremities Exam Extremities Exam: absent: Calf Tenderness Additional comments: Lower extremity focused exam: Vasc: DP and PT pulses palpable 1/4. Temperature gradient warm to cool. CFT < 3 sec x 3 digits. Mild pedal edema noted to lateral foot Derm: Clean open ulceration measuring approximately 7 cm x 3 cm x 0.6 cm to lateral forefoot with fibrogranular wound base. There is no erythema. Serous drainage noted to the dressing, no malodor, no tunneling or undermining present , no odor, no streaking, no purulence. Open plantar fissure noted to 3rd MPJ sulcus of the left foot. No clinical signs of infection. Open fissures noted to the right foot of 3rd (resolved) 4th, and 5th MPJ sulcus. No clinical signs of infection. Xerosis to the b/l foot Neuro: Protective sensation absent, gross sensation diminished Ortho: No tenderness to palpation of lateral forefoot ulceration - Neurological Exam Neurological Exam: Alert, Awake - Psychiatric Exam Psychiatric exam: Normal Affect, Normal Mood Assessment and Plan - Assessment and Plan (Free Text) Assessment: 71 y/o diabetic female with lateral left foot full thickness ulceration with osteomyelitis and bilateral foot open fissures with likely fungal component. Plan: Patient seen and evaluated at bedside with attending Dr. Trujillo X-rays of L foot (-) for any acute osseous changes/acute OM MRI of L foot ordered-5th metatarsal OM Cleansed ulceration with saline solution. Dressed right lateral ulceration with xeroform, DSD, ABD, and kerlix to the left Right opening fissures cleansed and applied nystatin Patient to wear multipodus boots to offload LE. Wear at all times while in bed. AMISHA impression: Very limited AMISHA exam, ABIs bilateraly SFA disease, bilaterally tibial disease Wound culture + for Acinetobacter Baumanii Continue IV abx per ID No surgical intervention by podiatry Podiatry will continue to provide local wound care Podiatry will continue to follow while in house <Harrison Trujillo - Last Filed: 07/30/17 08:42> Objective - Vital Signs/Intake and Output Vital Signs (last 24 hours): Temp Pulse Resp BP Pulse Ox 98.6 F 142 H 20 163/81 H 97 07/29/17 21:56 07/29/17 22:35 07/29/17 21:56 07/30/17 06:13 07/29/17 21:56 Intake and Output: 07/30/17 07/30/17 06:59 18:59 Intake Total 240 Output Total 2 Balance 238 - Medications Medications: Current Medications Acetaminophen (Tylenol 325mg Tab) 650 mg PO Q4H PRN PRN Reason: pain fever Last Admin: 07/27/17 02:58 Dose: 650 mg Albuterol/Ipratropium (Duoneb 3 Mg/0.5 Mg (3 Ml) Ud) 3 ml IH [id number] Last Admin: 07/30/17 07:39 Dose: 3 ml Aspirin (Aspirin Chewable) 81 mg PO DAILY [facility] Last Admin: 07/29/17 10:40 Dose: 81 mg Atorvastatin Calcium (Lipitor) 40 mg PO DIN [facility] Last Admin: 07/29/17 18:07 Dose: 40 mg Carvedilol (Coreg) 12.5 mg PO Q12H [facility] Last Admin: 07/30/17 06:13 Dose: 12.5 mg Clopidogrel Bisulfate (Plavix) 75 mg PO DAILY [facility] Last Admin: 07/29/17 10:14 Dose: 75 mg Clotrimazole (Lotrimin 1%) 1 gm TOP DAILY [facility] Last Admin: 07/29/17 12:44 Dose: 1 applic Collagenase (Santyl) 1 gm TOP DAILY [facility] Last Admin: 07/29/17 12:43 Dose: 1 applic Dextrose (Dextrose 50% Inj) 50 ml IVP PRN PRN PRN Reason: PRN For blood glucose below 80 Famotidine (Pepcid) 20 mg PO HS [facility] Last Admin: 07/28/17 21:02 Dose: 20 mg Ferrous Sulfate (Feosol) 324 mg PO BID [facility] Last Admin: 07/29/17 18:06 Dose: 324 mg Furosemide (Lasix) 20 mg IVP 0600 [facility] Last Admin: 07/30/17 06:12 Dose: 20 mg Furosemide (Lasix) 20 mg PO DAILY [facility] Hydralazine HCl (Apresoline) 10 mg IVP Q6 PRN PRN Reason: SBP >160 DBP>90 Last Admin: 07/27/17 04:20 Dose: 10 mg Hydralazine HCl (Apresoline) 75 mg PO QID [facility] Last Admin: 07/29/17 22:35 Dose: 75 mg Micafungin Sodium 100 mg/ (Sodium Chloride) 100 mls @ 100 mls/hr IV DAILY [facility] PRN Reason: Protocol Last Admin: 07/29/17 10:41 Dose: 100 mls/hr Insulin Detemir (Levemir) 10 unit SC [facility] Last Admin: 07/29/17 21:26 Dose: Not Given Insulin Human Regular (Humulin R Low) 0 units SC ACHS [facility] PRN Reason: Protocol Last Admin: 07/29/17 21:30 Dose: Not Given Mupirocin (Bactroban Ointment) 1 gm TOP BID [facility] Last Admin: 07/29/17 18:04 Dose: 1 appl Nystatin (Nystop Topical Powder) 1 gm TOP DAILY [facility] Last Admin: 07/29/17 12:44 Dose: 1 applic - Labs Labs: 07/29/17 07:30 07/29/17 07:30 PT 15.1 SECONDS (9.4-12.5) H 07/20/17 09:55 INR 1.31 (0.93-1.08) H 07/20/17 09:55 APTT 37.7 Seconds (25.1-36.5) H 07/20/17 09:55 Attending/Attestation - Attestation I have personally seen and examined this patient.: Yes I have fully participated in the care of the patient.: Yes I have reviewed all pertinent clinical information, including history, physical exam and plan: Yes
[2017-07-29] MEDS ORDERED: Insulin Detemir 100 units/ml Vial (Levemir) SC SCH (22:00)
--- NOTE | 2017-07-29 23:36 | PN ---
DATE: 07/29/2017 SUBJECTIVE: Patient is a 71-year-old female. Patient Is seen and examined at the bedside. Looking comfortable. No nausea, vomiting, diarrhea. No hematuria or hematochezia. No headache, no dizziness. No chest pain, no palpitation. No fever, no chills. PHYSICAL EXAMINATION: VITAL SIGNS: Temperature 97.9, pulse 74, respiratory rate 18, blood pressure 120 /73, pulse oximetry 100. HEENT: Head: Normocephalic, atraumatic. Eyes: PERRLA. Extraocular muscles intact. Conjunctivae clear. Nose: Patent. Mucous membrane moist. NECK: Supple. No carotid bruit. No JVD or thyromegaly. CHEST: Bilaterally symmetrical. HEART: S1 and S2 positive. LUNGS: Clear to auscultation. ABDOMEN: Soft. Bowel sounds positive. No organomegaly. EXTREMITIES: No edema. No cyanosis. NEUROLOGICAL: Patient is awake, alert. Moving all four extremities. No focal deficits. MEDICATIONS: Tylenol, DuoNeb, aspirin, Lipitor, Coreg, Plavix, clotrimazole, Santyl, Pepcid, iron, Lasix, hydralazine, micafungin, insulin. LABORATORY DATA: White blood cells 10.1, hemoglobin 9.2, hematocrit 28.3, platelets 256. Sodium 142, potassium 3.4, BUN 44, creatinine 1.4, glucose 164. ASSESSMENT AND PLAN: Ms. Tamy Abbott is a 71-year-old lady with anemia; hypokalemia; renal insufficiency; hyperglycemia; has altered renal function. Patient was on vancomycin for treatment; in the hospital, we restarted meropenem and checked vancomycin levels, first given worsening creatinine level. Gave wound care, but it looks like patient has multiple factors contributing to it including dehydration and poor oral intake and use of vancomycin. Antibiotics for worsening renal function in the past. Patient needs to consider Zosyn and vancomycin for treatment ,wound cultures of the foot identified as [id number] Acinetobacter. We will check with the labs regarding the sensitivity and additional antibiotics as per Dr. Pack. According to Dr. Pack, finally, patient needs two more doses of daptomycin, at least seven days of micafungin. Trying to get some rehab who will take the patient with this costly antibiotics. Patient has history of dementia, legally blind, hypocalcemia, low albumin, proteinuria, hematuria, urinary tract infection, stool occult positive. GI was on the case. Nonhealing foot ulcer with osteomyelitis, bilateral open fissure at the digits; history of rapid response when the patient was on the floor, now improving. Appreciated Dr. Pack, Dr. Lim, and all other operational risk consultant's input. Repeat labs. We will follow up. Deisy Gilman MD MTDD
[2017-07-30] MEDS: Albuterol-Ipratrop 3 mg / 0.5 (3 ml) UD IH SCH ×7 (00:50→23:45)
[2017-07-30] MEDS: Nystatin 100,000 Units/gm Topical Pow(15 gm) TOP SCH (10:01)
[2017-07-30] MEDS: Micafungin 100 MG in Sodium Chloride 0.9% 100 ML IV SCH (10:01)
[2017-07-30] MEDS: Clotrimazole 1% Cream(30 gm) TOP SCH (10:02)
[2017-07-30] MEDS: Collagenase 250 Units/gm Ointment(30 gm) TOP SCH (10:04)
[2017-07-30] MEDS: Mupirocin 2% Ointment 15 GM TUBE TOP SCH ×2 (10:05→17:29)
[2017-07-30] MEDS: Insulin Reg-LOW-Coverage SC SCH ×3 (10:06→17:26)
--- NOTE | 2017-07-30 10:39 | CP.PCM.PN ---
Subjective - Date & Time of Evaluation Date of Evaluation: 07/30/17 Time of Evaluation: 08:00 - Subjective Subjective: Infectious Disease Follow Up: July 30, 2017 71 yo AA female sent from [facility] for poor responsiveness. 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 History of E. coli and enterococcus. The E. coli is ESBL+. The patient can give little history of her own. She is currently awake and alert now. The patient was on IV Vancomycin at [place]. Unclear if she was still on Meropenem there. Renal insufficiency. The patient had normal creatinine in June 2017. Still elevated creatinine. Unclear if this is secondary to several factors such as dehydration, poor appetite, and use of Vancomycin. Vancomycin remains high at 35.4 but she did get a dose in hospital early in the hospital course. The patient is AAO x 1-2. The patient has very uneven behavior... I'm not sure if this is her normal vs. AMS. Remains agitated. Wound cultures showing gram negative rods identified as MDR Acinetobacter. Urine with yeast. Patient found unresponsive yesterday AM. The patient had rapid response and Code Stroke called. Found to be severely hypertensive yesterday AM. Taken to ICU for further care. The patient has improved since transfer to ICU and is currently awake and alert. Patient does not always make sense when speaking but that is close to her baseline. Creatinine remains elevated at 1.7. Overnight no new issues. Patient is more or less at baseline mental status. However, late yesterday afternoon, the patient had difficulty breathing again. Case discussed with Dr. Lim the Speeder Worker. Switched Meropenem to Tygacil a few days ago. She remains on BiPAP. Episodes of hypothermia several nights ago down to 88.3. Normal temperatures for the last few nights. Clinically, the patient has improved. The patient is awake and alert. She appears to be answering questions appropriately. No additional complaints. Patient requesting a hamburger or hot dog now. Currently on Daptomycin and Mycamine. Vandana growth in aerobic bottle. Fungitell test pending. Objective - Vital Signs/Intake and Output Vital Signs (last 24 hours): Temp Pulse Resp BP Pulse Ox 98.2 F 79 18 163/81 H 100 07/30/17 06:00 07/30/17 10:00 07/30/17 06:00 07/30/17 10:00 07/30/17 06:00 Intake and Output: 07/30/17 07/30/17 06:59 18:59 Intake Total 240 Output Total 2 Balance 238 - Medications Medications: Current Medications Acetaminophen (Tylenol 325mg Tab) 650 mg PO Q4H PRN PRN Reason: pain fever Last Admin: 07/27/17 02:58 Dose: 650 mg Albuterol/Ipratropium (Duoneb 3 Mg/0.5 Mg (3 Ml) Ud) 3 ml IH [id number] [facility] Last Admin: 07/30/17 07:39 Dose: 3 ml Aspirin (Aspirin Chewable) 81 mg PO DAILY [facility] Last Admin: 07/30/17 09:59 Dose: 81 mg Atorvastatin Calcium (Lipitor) 40 mg PO DIN [facility] Last Admin: 07/29/17 18:07 Dose: 40 mg Carvedilol (Coreg) 12.5 mg PO Q12H [facility] Last Admin: 07/30/17 06:13 Dose: 12.5 mg Clopidogrel Bisulfate (Plavix) 75 mg PO DAILY [facility] Last Admin: 07/30/17 09:59 Dose: 75 mg Clotrimazole (Lotrimin 1%) 1 gm TOP DAILY [facility] Last Admin: 07/30/17 10:02 Dose: 1 applic Collagenase (Santyl) 1 gm TOP DAILY [facility] Last Admin: 07/30/17 10:04 Dose: 1 applic Dextrose (Dextrose 50% Inj) 50 ml IVP PRN PRN PRN Reason: PRN For blood glucose below 80 Famotidine (Pepcid) 20 mg PO HS [facility] Last Admin: 07/28/17 21:02 Dose: 20 mg Ferrous Sulfate (Feosol) 324 mg PO BID [facility] Last Admin: 07/30/17 09:59 Dose: 324 mg Furosemide (Lasix) 20 mg IVP 0600 [facility] Last Admin: 07/30/17 06:12 Dose: 20 mg Furosemide (Lasix) 20 mg PO DAILY [facility] Last Admin: 07/30/17 10:00 Dose: 20 mg Hydralazine HCl (Apresoline) 10 mg IVP Q6 PRN PRN Reason: SBP >160 DBP>90 Last Admin: 07/27/17 04:20 Dose: 10 mg Hydralazine HCl (Apresoline) 75 mg PO QID [facility] Last Admin: 07/30/17 10:00 Dose: 75 mg Micafungin Sodium 100 mg/ (Sodium Chloride) 100 mls @ 100 mls/hr IV DAILY [facility] PRN Reason: Protocol Last Admin: 07/30/17 10:01 Dose: 100 mls/hr Insulin Detemir (Levemir) 10 unit SC HS [facility] Last Admin: 07/29/17 21:26 Dose: Not Given Insulin Human Regular (Humulin R Low) 0 units SC ACHS [facility] PRN Reason: Protocol Last Admin: 07/30/17 10:06 Dose: Not Given Mupirocin (Bactroban Ointment) 1 gm TOP BID [facility] Last Admin: 07/30/17 10:05 Dose: 1 appl Nystatin (Nystop Topical Powder) 1 gm TOP DAILY [facility] Last Admin: 07/30/17 10:01 Dose: 1 applic - Labs Labs: 07/29/17 07:30 07/29/17 07:30 PT 15.1 SECONDS (9.4-12.5) H 07/20/17 09:55 INR 1.31 (0.93-1.08) H 07/20/17 09:55 APTT 37.7 Seconds (25.1-36.5) H 07/20/17 09:55 - Constitutional Appears: Non-toxic, No Acute Distress, Chronically Ill - Head Exam Head Exam: ATRAUMATIC, NORMOCEPHALIC - Eye Exam Pupil Exam: Unequal Additional comments: right eye 3 mm, left eye 4 mm - ENT Exam ENT Exam: Mucous Membranes Moist, Normal External Ear Exam, TM's Normal Bilaterally - Neck Exam Neck Exam: Full ROM, Normal Inspection - Respiratory Exam Respiratory Exam: Clear to Ausculation Bilateral, NORMAL BREATHING PATTERN. absent: Rales, Rhonchi, Wheezes - Cardiovascular Exam Cardiovascular Exam: REGULAR RHYTHM, RRR, +S1, +S2 - GI/Abdominal Exam GI & Abdominal Exam: Soft, Normal Bowel Sounds. absent: Distended, Tenderness - Extremities Exam Extremities Exam: Full ROM, Normal Inspection - Neurological Exam Neurological Exam: Alert, Awake, CN II-XII Intact Additional comments: AAO x 2. Awake and alert. Answered questions appropriately - Psychiatric Exam Psychiatric exam: Normal Affect, Normal Mood - Skin Skin Exam: Intact, Normal Color Assessment and Plan - Assessment and Plan (Free Text) Assessment: 71 yo AA female with altered renal function and was poorly responsive at [facility]. The patient was on Vancomycin for antibiotic treatment. Will restart Meropenem and check Vancomycin levels fist given worsening creatinine levels. Local wound care. Still with decreased renal function despite normal values in the early part of June 2017. Likely multiple factors contributing to this including dehydration , poor oral appetite, and use of Vancomycin antibiotics. Unclear if the renal function will recover at this point... it is too early to tell. Recheck creatinine tomorrow. May need to consider Zyvox over Vancomycin for treatment given renal function. Check Vancomycin level tomorrow again. Level currently is 35.4 taken about 24 hours after the last administration of IV Vancomycin. Possible consideration of Zyvox use after Vancomycin levels normalize and if culture still suggest Enterococcus infection. Podiatry had recultured the foot during this hospitalization. Gram negative rods in wound cultures of the foot identified as MDR Acinetobacter. Will check with lab regarding sensitivities to additional antibiotics. The patient had received several days of meropenem. Brought to MICU after being found unresponsive. Severely hypertensive during rapid response. After a few hours in the MICU, the patient is now awake and alert. Continuing on meropenem. The patient has been afebrile and has had no leukocytosis. No new issues overnight. Creatinine stayed at 1.4 today. No leukocytosis (10.1 today). The patient had difficulty breathing mid hospitalization. Antibiotics were switched from meropenem to tigecycline. Patient is still lethargic but more arousable. Hypothermic several nights ago... normal temperatures overnight. Was on Zyvox and Meropenem for IV antibiotics. Awaiting final blood cultures ( coagulase positive cocci in clusters). Was on Tigecycline. The patient improved significantly since started on Tigecycline. VRE in urine and one blood culture. Yeast in urine and one blood culture. Removal or exchange of all indwelling catheters strongly recommended. On Daptomycin for VRE. Awaiting results of Jzaf-R-Renupl test. Repeat cultures. Vandana in one blood culture. Given QT interval cannot utilized fluconazole, may consider use of Micafungin. Source of fungi likely the PICC line that was used to administer antibiotics (it appears to have been in for 3- 4 months) which the Patient removed herself earlier in this hospitalization. Nyit-A-Oqarns test pending. One blood culture showing Vandana growth. Supportive care. If Fungitell (Xxns-[id number]-[id number] test) negative, may consider stopping Mycamine. Consideration of 2 more doses of Daptomycin (will place order for a dose tomorrow) and at least 7 days of Micafungin. Thank you for allowing me to participate in the care of the patient, we will follow with you.
--- NOTE | 2017-07-30 11:34 | CP.PCM.PN ---
<Sky Cazares - Last Filed: 07/30/17 11:30> Subjective - Date & Time of Evaluation Date of Evaluation: 07/30/17 Time of Evaluation: 11:30 - Subjective Subjective: Podiatry Progress Note for Dr. Trujillo 71F seen at bedside for R foot fissures and L foot fifth metatarsal ulceration. Patient is AAO x 3 and NAD, resting comfortably in bed at time of visit. Denies any acute overnight events or any new pedal complaints. Denies any recent N/V/F/ C/CP/SOB/D. Multipodus boots seen to be in place at time of visit Objective - Vital Signs/Intake and Output Vital Signs (last 24 hours): Temp Pulse Resp BP Pulse Ox 98.2 F 79 18 163/81 H 100 07/30/17 06:00 07/30/17 10:00 07/30/17 06:00 07/30/17 10:00 07/30/17 06:00 Intake and Output: 07/30/17 07/30/17 06:59 18:59 Intake Total 240 Output Total 2 Balance 238 - Medications Medications: Current Medications Acetaminophen (Tylenol 325mg Tab) 650 mg PO Q4H PRN PRN Reason: pain fever Last Admin: 07/27/17 02:58 Dose: 650 mg Albuterol/Ipratropium (Duoneb 3 Mg/0.5 Mg (3 Ml) Ud) 3 ml IH [id number] [facility] Last Admin: 07/30/17 11:27 Dose: 3 ml Amlodipine Besylate (Norvasc) 5 mg PO DAILY [facility] Aspirin (Aspirin Chewable) 81 mg PO DAILY [facility] Last Admin: 07/30/17 09:59 Dose: 81 mg Atorvastatin Calcium (Lipitor) 40 mg PO DIN [facility] Last Admin: 07/29/17 18:07 Dose: 40 mg Carvedilol (Coreg) 12.5 mg PO Q12H [facility] Last Admin: 07/30/17 06:13 Dose: 12.5 mg Clopidogrel Bisulfate (Plavix) 75 mg PO DAILY [facility] Last Admin: 07/30/17 09:59 Dose: 75 mg Clotrimazole (Lotrimin 1%) 1 gm TOP DAILY [facility] Last Admin: 07/30/17 10:02 Dose: 1 applic Collagenase (Santyl) 1 gm TOP DAILY [facility] Last Admin: 07/30/17 10:04 Dose: 1 applic Dextrose (Dextrose 50% Inj) 50 ml IVP PRN PRN PRN Reason: PRN For blood glucose below 80 Famotidine (Pepcid) 20 mg PO HS [facility] Last Admin: 07/28/17 21:02 Dose: 20 mg Ferrous Sulfate (Feosol) 324 mg PO BID [facility] Last Admin: 07/30/17 09:59 Dose: 324 mg Furosemide (Lasix) 20 mg IVP 0600 [facility] Last Admin: 07/30/17 06:12 Dose: 20 mg Furosemide (Lasix) 20 mg PO DAILY [facility] Last Admin: 07/30/17 10:00 Dose: 20 mg Hydralazine HCl (Apresoline) 10 mg IVP Q6 PRN PRN Reason: SBP >160 DBP>90 Last Admin: 07/27/17 04:20 Dose: 10 mg Hydralazine HCl (Apresoline) 75 mg PO QID [facility] Last Admin: 07/30/17 10:00 Dose: 75 mg Micafungin Sodium 100 mg/ (Sodium Chloride) 100 mls @ 100 mls/hr IV DAILY [facility] PRN Reason: Protocol Last Admin: 07/30/17 10:01 Dose: 100 mls/hr Insulin Detemir (Levemir) 10 unit SC [facility] Last Admin: 07/29/17 21:26 Dose: Not Given Insulin Human Regular (Humulin R Low) 0 units SC [facility] PRN Reason: Protocol Last Admin: 07/30/17 10:06 Dose: Not Given Mupirocin (Bactroban Ointment) 1 gm TOP BID [facility] Last Admin: 07/30/17 10:05 Dose: 1 appl Nystatin (Nystop Topical Powder) 1 gm TOP DAILY [facility] Last Admin: 07/30/17 10:01 Dose: 1 applic - Labs Labs: 07/29/17 07:30 07/29/17 07:30 PT 15.1 SECONDS (9.4-12.5) H 07/20/17 09:55 INR 1.31 (0.93-1.08) H 07/20/17 09:55 APTT 37.7 Seconds (25.1-36.5) H 07/20/17 09:55 - Constitutional Appears: Well, Non-toxic, No Acute Distress - Head Exam Head Exam: ATRAUMATIC, NORMOCEPHALIC - Extremities Exam Additional comments: Lower extremity focused exam: Vasc: DP and PT pulses palpable 1/4. Temperature gradient warm to cool. CFT < 3 sec x 3 digits. Mild pedal edema noted to lateral foot Derm: Clean open ulceration measuring approximately 7 cm x 3 cm x 0.6 cm to lateral forefoot with fibrogranular wound base. There is no erythema. Serous drainage noted to the dressing, no malodor, no tunneling or undermining present , no odor, no streaking, no purulence, no other clinical signs of infection. Open plantar fissure noted to 3rd MPJ sulcus of the left foot. No clinical signs of infection. Open fissures noted to the right foot of 3rd (resolved) 4th , and 5th MPJ sulcus. No clinical signs of infection. Xerosis to the b/l foot Neuro: Epicritic and protective sensation severely diminished b/l Ortho: No tenderness to palpation of lateral forefoot ulceration - Neurological Exam Neurological Exam: Alert, Awake, Oriented x3 - Psychiatric Exam Psychiatric exam: Normal Affect, Normal Mood Assessment and Plan - Assessment and Plan (Free Text) Assessment: 71F seen at bedside for R foot fissures and L foot fifth metatarsal ulceration Plan: Patient seen and evaluated with attending Dr. Trujillo Absent leukocytosis at last CBC AMISHA/PVR studies indicate mildy decreased blood flow to b/l feet w/ b/l SFA and tibial disease MRI left foot: Marrow edema and cortical destruction in the fifth metatarsal consistent with OM Nystatin powder and Clotrimazole applied to patient's right foot Left foot wound dressed with adaptic, ABD, DSD No plan for surgical intervention at this time Will follow up plan with Dr. Trujillo Podiatry will continue to follow while patient in house <Harrison Trujillo - Last Filed: 08/02/17 11:26> Objective - Vital Signs/Intake and Output Vital Signs (last 24 hours): Temp Pulse Resp BP Pulse Ox 98.9 F 83 18 164/81 H 98 08/02/17 08:59 08/02/17 09:17 08/02/17 08:59 08/02/17 09:17 08/02/17 08:59 Intake and Output: 08/02/17 08/02/17 06:59 18:59 Intake Total 600 Balance 600 - Medications Medications: Current Medications Acetaminophen (Tylenol 325mg Tab) 650 mg PO Q4H PRN PRN Reason: pain fever Last Admin: 07/27/17 02:58 Dose: 650 mg Albuterol/Ipratropium (Duoneb 3 Mg/0.5 Mg (3 Ml) Ud) 3 ml IH [id number] [facility] Last Admin: 08/02/17 11:13 Dose: 3 ml Amlodipine Besylate (Norvasc) 10 mg PO DAILY [facility] Last Admin: 08/02/17 09:17 Dose: 10 mg Aspirin (Aspirin Chewable) 81 mg PO DAILY [facility] Last Admin: 08/02/17 09:17 Dose: 81 mg Atorvastatin Calcium (Lipitor) 40 mg PO DIN [facility] Last Admin: 08/01/17 17:30 Dose: 40 mg Carvedilol (Coreg) 25 mg PO Q12 [facility] Last Admin: 08/02/17 09:17 Dose: 25 mg Clopidogrel Bisulfate (Plavix) 75 mg PO DAILY [facility] Last Admin: 08/02/17 09:17 Dose: 75 mg Clotrimazole (Lotrimin 1%) 1 gm TOP DAILY [facility] Last Admin: 08/02/17 09:18 Dose: 1 applic Collagenase (Santyl) 1 gm TOP DAILY [facility] Last Admin: 08/02/17 09:17 Dose: 1 applic Dextrose (Dextrose 50% Inj) 50 ml IVP PRN PRN PRN Reason: PRN For blood glucose below 80 Last Admin: 08/01/17 22:18 Dose: 50 ml Famotidine (Pepcid) 20 mg PO HS [facility] Last Admin: 08/01/17 22:39 Dose: Not Given Ferrous Sulfate (Feosol) 324 mg PO BID [facility] Last Admin: 08/02/17 09:16 Dose: 324 mg Furosemide (Lasix) 20 mg PO DAILY [facility] Last Admin: 08/02/17 09:17 Dose: 20 mg Hydralazine HCl (Apresoline) 10 mg IVP Q6 PRN PRN Reason: SBP >160 DBP>90 Last Admin: 07/30/17 14:24 Dose: 10 mg Hydralazine HCl (Apresoline) 75 mg PO QID [facility] Last Admin: 08/02/17 09:16 Dose: 75 mg Micafungin Sodium 100 mg/ (Sodium Chloride) 100 mls @ 100 mls/hr IV DAILY [facility] PRN Reason: Protocol Last Admin: 08/02/17 09:16 Dose: 100 mls/hr Insulin Detemir (Levemir) 10 unit SC HS [facility] Last Admin: 08/01/17 22:30 Dose: Not Given Insulin Human Regular (Humulin R Low) 0 units SC ACHS [facility] PRN Reason: Protocol Last Admin: 08/02/17 08:00 Dose: Not Given Mupirocin (Bactroban Ointment) 1 gm TOP BID [facility] Last Admin: 08/01/17 17:31 Dose: 1 appl Nystatin (Nystop Topical Powder) 1 gm TOP DAILY [facility] Last Admin: 08/02/17 09:18 Dose: 1 applic - Labs Labs: 08/01/17 06:00 08/01/17 06:00 PT 15.1 SECONDS (9.4-12.5) H 07/20/17 09:55 INR 1.31 (0.93-1.08) H 07/20/17 09:55 APTT 37.7 Seconds (25.1-36.5) H 07/20/17 09:55 Attending/Attestation - Attestation I have personally seen and examined this patient.: Yes I have fully participated in the care of the patient.: Yes I have reviewed all pertinent clinical information, including history, physical exam and plan: Yes
--- NOTE | 2017-07-30 19:40 | CP.PCM.PN ---
Subjective - Date & Time of Evaluation Date of Evaluation: 07/30/17 Time of Evaluation: 11:00 - Subjective Subjective: Tolerating diet; no sob; Objective - Vital Signs/Intake and Output Vital Signs (last 24 hours): Temp Pulse Resp BP Pulse Ox 98.8 F 83 20 162/67 H 100 07/30/17 14:00 07/30/17 17:30 07/30/17 14:00 07/30/17 17:30 07/30/17 06:00 Intake and Output: 07/30/17 07/31/17 18:59 06:59 Intake Total 480 Balance 480 - Medications Medications: Current Medications Acetaminophen (Tylenol 325mg Tab) 650 mg PO Q4H PRN PRN Reason: pain fever Last Admin: 07/27/17 02:58 Dose: 650 mg Albuterol/Ipratropium (Duoneb 3 Mg/0.5 Mg (3 Ml) Ud) 3 ml IH [id number] [facility] Last Admin: 07/30/17 15:45 Dose: 3 ml Amlodipine Besylate (Norvasc) 5 mg PO DAILY [facility] Aspirin (Aspirin Chewable) 81 mg PO DAILY [facility] Last Admin: 07/30/17 09:59 Dose: 81 mg Atorvastatin Calcium (Lipitor) 40 mg PO DIN [facility] Last Admin: 07/30/17 17:18 Dose: 40 mg Carvedilol (Coreg) 12.5 mg PO Q12H [facility] Last Admin: 07/30/17 17:30 Dose: 12.5 mg Clopidogrel Bisulfate (Plavix) 75 mg PO DAILY [facility] Last Admin: 07/30/17 09:59 Dose: 75 mg Clotrimazole (Lotrimin 1%) 1 gm TOP DAILY [facility] Last Admin: 07/30/17 10:02 Dose: 1 applic Collagenase (Santyl) 1 gm TOP DAILY [facility] Last Admin: 07/30/17 10:04 Dose: 1 applic Dextrose (Dextrose 50% Inj) 50 ml IVP PRN PRN PRN Reason: PRN For blood glucose below 80 Famotidine (Pepcid) 20 mg PO HS [facility] Last Admin: 07/28/17 21:02 Dose: 20 mg Ferrous Sulfate (Feosol) 324 mg PO BID [facility] Last Admin: 07/30/17 17:18 Dose: 324 mg Furosemide (Lasix) 20 mg IVP 0600 [facility] Last Admin: 07/30/17 06:12 Dose: 20 mg Furosemide (Lasix) 20 mg PO DAILY [facility] Last Admin: 07/30/17 10:00 Dose: 20 mg Hydralazine HCl (Apresoline) 10 mg IVP Q6 PRN PRN Reason: SBP >160 DBP>90 Last Admin: 07/30/17 14:24 Dose: 10 mg Hydralazine HCl (Apresoline) 75 mg PO QID [facility] Last Admin: 07/30/17 17:18 Dose: 75 mg Micafungin Sodium 100 mg/ (Sodium Chloride) 100 mls @ 100 mls/hr IV DAILY [facility] PRN Reason: Protocol Last Admin: 07/30/17 10:01 Dose: 100 mls/hr Insulin Detemir (Levemir) 10 unit SC HS [facility] Last Admin: 07/29/17 21:26 Dose: Not Given Insulin Human Regular (Humulin R Low) 0 units SC ACHS [facility] PRN Reason: Protocol Last Admin: 07/30/17 17:26 Dose: Not Given Mupirocin (Bactroban Ointment) 1 gm TOP BID [facility] Last Admin: 07/30/17 17:29 Dose: 1 appl Nystatin (Nystop Topical Powder) 1 gm TOP DAILY [facility] Last Admin: 07/30/17 10:01 Dose: 1 applic - Labs Labs: 07/29/17 07:30 07/29/17 07:30 PT 15.1 SECONDS (9.4-12.5) H 07/20/17 09:55 INR 1.31 (0.93-1.08) H 07/20/17 09:55 APTT 37.7 Seconds (25.1-36.5) H 07/20/17 09:55 - Constitutional Appears: Non-toxic, No Acute Distress - Eye Exam Eye Exam: absent: Scleral icterus - ENT Exam ENT Exam: Mucous Membranes Moist - Respiratory Exam Respiratory Exam: Clear to Ausculation Bilateral. absent: Respiratory Distress - Cardiovascular Exam Cardiovascular Exam: RRR, +S1, +S2 - GI/Abdominal Exam GI & Abdominal Exam: Soft. absent: Distended, Tenderness - Extremities Exam Additional comments: mild leg edema, improved; - Neurological Exam Neurological Exam: Alert, Awake - Skin Skin Exam: Warm. absent: Cyanosis Assessment and Plan (1) Acute renal failure Assessment & Plan: ATN, resolving, continue to avoid nephrotoxic agents; Status: Acute (2) Respiratory failure Status: Acute (3) Hypertension Assessment & Plan: BP still uncontrolled despite increasing hydralazine dose; starting norvasc 5 mg daily; Status: Acute (4) Proteinuria Status: Acute (5) Cellulitis and abscess Status: Acute
[2017-07-30] MEDS: Insulin Detemir 100 units/ml Vial (Levemir) SC SCH (23:30)
--- NOTE | 2017-07-31 00:53 | PN ---
DATE: 07/30/2017 Patient is a 71-year-old female. SUBJECTIVE: Patient was seen and examined at the bedside. Patient's daughter was standing on the bedside also. Patient was getting IV line. Awake, alert, feeling better. No fever, no chills. No nausea, vomiting, diarrhea. REVIEW OF SYSTEM: I did 10-point review of systems and negative except above. PHYSICAL EXAMINATION: VITAL SIGNS: Temperature 98.8, pulse 83, respiratory rate 20, blood pressure 150/67, pulse oximetry 100. HEENT: Head: Normocephalic and atraumatic. Eyes: PERRLA. Extraocular muscles are intact. Conjunctivae are clear. Nose: Patent. Mucous membranes are moist. NECK: Supple. No carotid bruit, JVD, or thyromegaly. CHEST: Bilaterally symmetrical. HEART: S1, S2 positive. LUNGS: Clear to auscultation. ABDOMEN: Soft. Bowel sounds present. No organomegaly. EXTREMITIES: No edema. No cyanosis. NEUROLOGIC: Patient is awake and alert. Moving all four extremities. No focal deficits. MEDICATIONS: Tylenol, DuoNeb, Lipitor, Plavix, Santyl, dextrose, Pepcid, Lasix. LABORATORY DATA: White blood cells 10.1, hemoglobin 9.2, hematocrit 28.3, platelets 256. Sodium 142, potassium 3.4, BUN 44, creatinine 1.1, glucose 164. ASSESSMENT AND PLAN: Ms. Tamy Abbott is a 71-year-old lady with anemia; hypokalemia, replaced; renal insufficiency; hyperglycemia; acute renal failure; respiratory failure; hypertension; proteinuria; cellulitis and abscess, status post rapid response. Dr. Reza Cosby is on the case due to the renal failure. ID is on the case. Podiatry is on the case. Gastrointestinal and deep venous thrombosis prophylaxis. Repeat labs. We will follow up. Deisy Gilman MD [email or web address]
[2017-07-31] MEDS: Albuterol-Ipratrop 3 mg / 0.5 (3 ml) UD IH SCH ×5 (03:31→20:51)
[2017-07-31] MEDS: Insulin Reg-LOW-Coverage SC SCH ×5 (05:03→22:54)
[2017-07-31] MEDS: Micafungin 100 MG in Sodium Chloride 0.9% 100 ML IV SCH (10:02)
[2017-07-31] MEDS: Nystatin 100,000 Units/gm Topical Pow(15 gm) TOP SCH (10:07)
[2017-07-31] MEDS: Collagenase 250 Units/gm Ointment(30 gm) TOP SCH (10:07)
[2017-07-31] MEDS: Clotrimazole 1% Cream(30 gm) TOP SCH (10:08)
[2017-07-31] MEDS: Mupirocin 2% Ointment 15 GM TUBE TOP SCH ×2 (10:08→17:05)
[2017-07-31 12:24] LABS: EOS # 0.2 (0.0-0.7); EOS % 1.6 % (1.5-5.0); GRAN # 7.3 (1.4-6.5); GRAN % 75.2 % (50.0-68.0); LYMPH # 1.2 (1.2-3.4); LYMPH % 12.3 % (22.0-35.0); MEAN CELL VOLUME 79.5 fl (80.0-105.0); MEAN CORPUSCULAR HGB CONC 32.7 g/dl (31.0-37.0); MEAN PLATELET VOLUME 10.8 fl (7.0-11.0); MONO # 1.1 (0.1-0.6); MONO % 10.9 % (1.0-6.0); RBC 3.46 10^6/uL (3.5-6.1); RED CELL DISTRIBUTION WIDTH 16.2 % (11.5-14.5); WHITE BLOOD COUNT 9.7 10^3/ul (4.5-11.0)
[2017-07-31 12:35] LABS: ALB/GLOB RATIO 0.9 (1.1-1.8); ALBUMIN 2.8 g/dL (3.0-4.8); CALCIUM 8.1 mg/dL (8.4-10.5)
--- NOTE | 2017-07-31 13:32 | CP.PCM.PN ---
<Sky Cazares - Last Filed: 07/31/17 13:29> Subjective - Date & Time of Evaluation Date of Evaluation: 07/31/17 Time of Evaluation: 13:29 - Subjective Subjective: Podiatry Progress Note for Dr. Trujillo 71F seen at bedside for R foot fissures and L foot fifth metatarsal ulceration. Patient is AAO x 3 and NAD, resting comfortably in bed at time of visit sleeping but easily arousable. Denies any acute overnight events or any new pedal complaints. Denies any recent N/V/F/C/CP/SOB/D. Multipodus boots seen to be in place at time of visit Objective - Vital Signs/Intake and Output Vital Signs (last 24 hours): Temp Pulse Resp BP Pulse Ox 98.1 F 81 18 155/76 H 95 07/31/17 06:00 07/31/17 12:38 07/31/17 06:00 07/31/17 12:38 07/31/17 06:00 Intake and Output: 07/31/17 07/31/17 06:59 18:59 Intake Total 120 Balance 120 - Medications Medications: Current Medications Acetaminophen (Tylenol 325mg Tab) 650 mg PO Q4H PRN PRN Reason: pain fever Last Admin: 07/27/17 02:58 Dose: 650 mg Albuterol/Ipratropium (Duoneb 3 Mg/0.5 Mg (3 Ml) Ud) 3 ml IH [id number] [facility] Last Admin: 07/31/17 07:40 Dose: 3 ml Amlodipine Besylate (Norvasc) 10 mg PO DAILY [facility] Aspirin (Aspirin Chewable) 81 mg PO DAILY [facility] Last Admin: 07/31/17 10:02 Dose: 81 mg Atorvastatin Calcium (Lipitor) 40 mg PO DIN [facility] Last Admin: 07/30/17 17:18 Dose: 40 mg Carvedilol (Coreg) 25 mg PO Q12 [facility] Last Admin: 07/31/17 12:38 Dose: 25 mg Clopidogrel Bisulfate (Plavix) 75 mg PO DAILY [facility] Last Admin: 07/31/17 10:02 Dose: 75 mg Clotrimazole (Lotrimin 1%) 1 gm TOP DAILY [facility] Last Admin: 07/31/17 10:08 Dose: 1 applic Collagenase (Santyl) 1 gm TOP DAILY [facility] Last Admin: 07/31/17 10:07 Dose: 1 applic Dextrose (Dextrose 50% Inj) 50 ml IVP PRN PRN PRN Reason: PRN For blood glucose below 80 Famotidine (Pepcid) 20 mg PO HS [facility] Last Admin: 07/30/17 21:23 Dose: 20 mg Ferrous Sulfate (Feosol) 324 mg PO BID [facility] Last Admin: 07/31/17 10:02 Dose: 324 mg Furosemide (Lasix) 20 mg IVP 0600 [facility] Last Admin: 07/31/17 07:42 Dose: 20 mg Furosemide (Lasix) 20 mg PO DAILY [facility] Last Admin: 07/31/17 10:01 Dose: 20 mg Hydralazine HCl (Apresoline) 10 mg IVP Q6 PRN PRN Reason: SBP >160 DBP>90 Last Admin: 07/30/17 14:24 Dose: 10 mg Hydralazine HCl (Apresoline) 75 mg PO QID [facility] Last Admin: 07/31/17 10:01 Dose: 75 mg Micafungin Sodium 100 mg/ (Sodium Chloride) 100 mls @ 100 mls/hr IV DAILY [facility] PRN Reason: Protocol Last Admin: 07/31/17 10:02 Dose: 100 mls/hr Insulin Detemir (Levemir) 10 unit SC [facility] Last Admin: 07/30/17 23:30 Dose: 10 unit Insulin Human Regular (Humulin R Low) 0 units SC ACHS [facility] PRN Reason: Protocol Last Admin: 07/31/17 12:37 Dose: 1 units Mupirocin (Bactroban Ointment) 1 gm TOP BID [facility] Last Admin: 07/31/17 10:08 Dose: 1 appl Nystatin (Nystop Topical Powder) 1 gm TOP DAILY [facility] Last Admin: 07/31/17 10:07 Dose: 1 applic - Labs Labs: 07/31/17 12:10 07/31/17 12:10 PT 15.1 SECONDS (9.4-12.5) H 07/20/17 09:55 INR 1.31 (0.93-1.08) H 07/20/17 09:55 APTT 37.7 Seconds (25.1-36.5) H 07/20/17 09:55 - Constitutional Appears: Well, Non-toxic, No Acute Distress - Head Exam Head Exam: ATRAUMATIC, NORMOCEPHALIC - Extremities Exam Additional comments: Lower extremity focused exam: Vasc: DP and PT pulses palpable 1/4. Temperature gradient warm to cool. CFT < 3 sec x 3 digits. Mild pedal edema noted to lateral foot Derm: Clean open ulceration measuring approximately 7 cm x 3 cm x 0.6 cm to lateral forefoot with fibrogranular wound base. There is no erythema. Minimal serous drainage noted to the dressing, no malodor, no tunneling or undermining present, no odor, no streaking, no purulence, no other clinical signs of infection. Open plantar fissure noted to 3rd MPJ sulcus of the left foot, improving. No clinical signs of infection. Open fissures noted to the right foot of 3rd (resolved) 4th, and 5th MPJ sulcus, improving. No clinical signs of infection. Xerosis to the b/l foot improving Neuro: Epicritic and protective sensation severely diminished b/l Ortho: No tenderness to palpation of lateral forefoot ulceration. No other gross deformities noted - Neurological Exam Neurological Exam: Alert, Awake, Oriented x3 - Psychiatric Exam Psychiatric exam: Normal Affect, Normal Mood Assessment and Plan - Assessment and Plan (Free Text) Assessment: 71F seen at bedside for R foot fissures and L foot fifth metatarsal ulceration Plan: Patient seen and evaluated with attending Dr. Trujillo AMISHA/PVR studies indicate mildy decreased blood flow to b/l feet w/ b/l SFA and tibial disease MRI left foot: Marrow edema and cortical destruction in the fifth metatarsal consistent with OM Nystatin powder and Clotrimazole applied to patient's right foot Left foot wound dressed with adaptic, ABD, DSD No plan for surgical intervention at this time Will continue with aggressive local wound care Podiatry will continue to follow while patient in house <Harrison Trujillo - Last Filed: 08/02/17 11:27> Objective - Vital Signs/Intake and Output Vital Signs (last 24 hours): Temp Pulse Resp BP Pulse Ox 98.9 F 83 18 164/81 H 98 08/02/17 08:59 08/02/17 09:17 08/02/17 08:59 08/02/17 09:17 08/02/17 08:59 Intake and Output: 08/02/17 08/02/17 06:59 18:59 Intake Total 600 Balance 600 - Medications Medications: Current Medications Acetaminophen (Tylenol 325mg Tab) 650 mg PO Q4H PRN PRN Reason: pain fever Last Admin: 07/27/17 02:58 Dose: 650 mg Albuterol/Ipratropium (Duoneb 3 Mg/0.5 Mg (3 Ml) Ud) 3 ml IH [id number] [facility] Last Admin: 08/02/17 11:13 Dose: 3 ml Amlodipine Besylate (Norvasc) 10 mg PO DAILY [facility] Last Admin: 08/02/17 09:17 Dose: 10 mg Aspirin (Aspirin Chewable) 81 mg PO DAILY [facility] Last Admin: 08/02/17 09:17 Dose: 81 mg Atorvastatin Calcium (Lipitor) 40 mg PO DIN [facility] Last Admin: 08/01/17 17:30 Dose: 40 mg Carvedilol (Coreg) 25 mg PO Q12 [facility] Last Admin: 08/02/17 09:17 Dose: 25 mg Clopidogrel Bisulfate (Plavix) 75 mg PO DAILY [facility] Last Admin: 08/02/17 09:17 Dose: 75 mg Clotrimazole (Lotrimin 1%) 1 gm TOP DAILY [facility] Last Admin: 08/02/17 09:18 Dose: 1 applic Collagenase (Santyl) 1 gm TOP DAILY [facility] Last Admin: 08/02/17 09:17 Dose: 1 applic Dextrose (Dextrose 50% Inj) 50 ml IVP PRN PRN PRN Reason: PRN For blood glucose below 80 Last Admin: 08/01/17 22:18 Dose: 50 ml Famotidine (Pepcid) 20 mg PO HS [facility] Last Admin: 08/01/17 22:39 Dose: Not Given Ferrous Sulfate (Feosol) 324 mg PO BID [facility] Last Admin: 08/02/17 09:16 Dose: 324 mg Furosemide (Lasix) 20 mg PO DAILY [facility] Last Admin: 08/02/17 09:17 Dose: 20 mg Hydralazine HCl (Apresoline) 10 mg IVP Q6 PRN PRN Reason: SBP >160 DBP>90 Last Admin: 07/30/17 14:24 Dose: 10 mg Hydralazine HCl (Apresoline) 75 mg PO QID [facility] Last Admin: 08/02/17 09:16 Dose: 75 mg Micafungin Sodium 100 mg/ (Sodium Chloride) 100 mls @ 100 mls/hr IV DAILY [facility] PRN Reason: Protocol Last Admin: 08/02/17 09:16 Dose: 100 mls/hr Insulin Detemir (Levemir) 10 unit SC HS [facility] Last Admin: 08/01/17 22:30 Dose: Not Given Insulin Human Regular (Humulin R Low) 0 units SC ACHS [facility] PRN Reason: Protocol Last Admin: 08/02/17 08:00 Dose: Not Given Mupirocin (Bactroban Ointment) 1 gm TOP BID [facility] Last Admin: 08/01/17 17:31 Dose: 1 appl Nystatin (Nystop Topical Powder) 1 gm TOP DAILY [facility] Last Admin: 08/02/17 09:18 Dose: 1 applic - Labs Labs: 08/01/17 06:00 08/01/17 06:00 PT 15.1 SECONDS (9.4-12.5) H 07/20/17 09:55 INR 1.31 (0.93-1.08) H 07/20/17 09:55 APTT 37.7 Seconds (25.1-36.5) H 07/20/17 09:55 Attending/Attestation - Attestation I have personally seen and examined this patient.: Yes I have fully participated in the care of the patient.: Yes I have reviewed all pertinent clinical information, including history, physical exam and plan: Yes
--- NOTE | 2017-07-31 18:59 | CP.PCM.PN ---
Subjective - Date & Time of Evaluation Date of Evaluation: 07/31/17 Time of Evaluation: 17:00 - Subjective Subjective: Infectious Disease Follow Up: July 31, 2017 71 yo AA female sent from [facility] for poor responsiveness. 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 History of E. coli and enterococcus. The E. coli is ESBL+. The patient can give little history of her own. She is currently awake and alert now. The patient was on IV Vancomycin at [place]. Unclear if she was still on Meropenem there. Renal insufficiency. The patient had normal creatinine in June 2017. Still elevated creatinine. Unclear if this is secondary to several factors such as dehydration, poor appetite, and use of Vancomycin. Vancomycin remains high at 35.4 but she did get a dose in hospital early in the hospital course. The patient is AAO x 1-2. The patient has very uneven behavior... I'm not sure if this is her normal vs. AMS. Remains agitated. Wound cultures showing gram negative rods identified as MDR Acinetobacter. Urine with yeast. Patient found unresponsive yesterday AM. The patient had rapid response and Code Stroke called. Found to be severely hypertensive yesterday AM. Taken to ICU for further care. The patient has improved since transfer to ICU and is currently awake and alert. Patient does not always make sense when speaking but that is close to her baseline. Creatinine remains elevated at 1.7. Overnight no new issues. Patient is more or less at baseline mental status. However, late yesterday afternoon, the patient had difficulty breathing again. Case discussed with Dr. Lim the Cp Bleacher Operator. Switched Meropenem to Tygacil a few days ago. She remains on BiPAP. Episodes of hypothermia several nights ago down to 88.3. Normal temperatures for the last few nights. Clinically, the patient has improved. The patient is awake and alert. She appears to be answering questions appropriately. No additional complaints. Patient requesting a hamburger or hot dog now. Currently on Daptomycin and Mycamine. Completing daptomycin today. Vandana growth in aerobic bottle. Fungitell test positive. Objective - Vital Signs/Intake and Output Vital Signs (last 24 hours): Temp Pulse Resp BP Pulse Ox 98.1 F 81 18 155/65 H 95 07/31/17 06:00 07/31/17 17:02 07/31/17 06:00 07/31/17 17:02 07/31/17 06:00 Intake and Output: 07/31/17 07/31/17 06:59 18:59 Intake Total 120 480 Balance 120 480 - Medications Medications: Current Medications Acetaminophen (Tylenol 325mg Tab) 650 mg PO Q4H PRN PRN Reason: pain fever Last Admin: 07/27/17 02:58 Dose: 650 mg Albuterol/Ipratropium (Duoneb 3 Mg/0.5 Mg (3 Ml) Ud) 3 ml IH [id number] [facility] Last Admin: 07/31/17 15:22 Dose: 3 ml Amlodipine Besylate (Norvasc) 10 mg PO DAILY [facility] Aspirin (Aspirin Chewable) 81 mg PO DAILY [facility] Last Admin: 07/31/17 10:02 Dose: 81 mg Atorvastatin Calcium (Lipitor) 40 mg PO DIN [facility] Last Admin: 07/31/17 17:03 Dose: 40 mg Carvedilol (Coreg) 25 mg PO Q12 [facility] Last Admin: 07/31/17 12:38 Dose: 25 mg Clopidogrel Bisulfate (Plavix) 75 mg PO DAILY [facility] Last Admin: 07/31/17 10:02 Dose: 75 mg Clotrimazole (Lotrimin 1%) 1 gm TOP DAILY [facility] Last Admin: 07/31/17 10:08 Dose: 1 applic Collagenase (Santyl) 1 gm TOP DAILY [facility] Last Admin: 07/31/17 10:07 Dose: 1 applic Dextrose (Dextrose 50% Inj) 50 ml IVP PRN PRN PRN Reason: PRN For blood glucose below 80 Famotidine (Pepcid) 20 mg PO HS [facility] Last Admin: 07/30/17 21:23 Dose: 20 mg Ferrous Sulfate (Feosol) 324 mg PO BID [facility] Last Admin: 07/31/17 17:03 Dose: 324 mg Furosemide (Lasix) 20 mg PO DAILY [facility] Last Admin: 07/31/17 10:01 Dose: 20 mg Hydralazine HCl (Apresoline) 10 mg IVP Q6 PRN PRN Reason: SBP >160 DBP>90 Last Admin: 07/30/17 14:24 Dose: 10 mg Hydralazine HCl (Apresoline) 75 mg PO QID [facility] Last Admin: 07/31/17 17:02 Dose: 75 mg Micafungin Sodium 100 mg/ (Sodium Chloride) 100 mls @ 100 mls/hr IV DAILY [facility] PRN Reason: Protocol Last Admin: 07/31/17 10:02 Dose: 100 mls/hr Insulin Detemir (Levemir) 10 unit SC HS [facility] Last Admin: 07/30/17 23:30 Dose: 10 unit Insulin Human Regular (Humulin R Low) 0 units SC ACHS [facility] PRN Reason: Protocol Last Admin: 07/31/17 17:02 Dose: 1 units Mupirocin (Bactroban Ointment) 1 gm TOP BID [facility] Last Admin: 07/31/17 17:05 Dose: 1 appl Nystatin (Nystop Topical Powder) 1 gm TOP DAILY [facility] Last Admin: 07/31/17 10:07 Dose: 1 applic - Labs Labs: 07/31/17 12:10 07/31/17 12:10 PT 15.1 SECONDS (9.4-12.5) H 07/20/17 09:55 INR 1.31 (0.93-1.08) H 07/20/17 09:55 APTT 37.7 Seconds (25.1-36.5) H 07/20/17 09:55 - Constitutional Appears: Non-toxic, No Acute Distress, Chronically Ill - Head Exam Head Exam: ATRAUMATIC, NORMOCEPHALIC - Eye Exam Pupil Exam: Unequal Additional comments: right eye 3 mm, left eye 4 mm - ENT Exam ENT Exam: Mucous Membranes Moist, Normal External Ear Exam, TM's Normal Bilaterally - Neck Exam Neck Exam: Full ROM, Normal Inspection - Respiratory Exam Respiratory Exam: Clear to Ausculation Bilateral, NORMAL BREATHING PATTERN. absent: Rales, Rhonchi, Wheezes - Cardiovascular Exam Cardiovascular Exam: REGULAR RHYTHM, RRR, +S1, +S2 - GI/Abdominal Exam GI & Abdominal Exam: Soft, Normal Bowel Sounds. absent: Distended, Tenderness - Extremities Exam Extremities Exam: Full ROM, Normal Inspection - Neurological Exam Neurological Exam: Alert, Awake, CN II-XII Intact Additional comments: AAO x 2. Awake and alert. Answered questions appropriately. Appears comfortable. - Psychiatric Exam Psychiatric exam: Normal Affect, Normal Mood - Skin Skin Exam: Intact, Normal Color Assessment and Plan - Assessment and Plan (Free Text) Assessment: 71 yo AA female with altered renal function and was poorly responsive at [facility]. The patient was on Vancomycin for antibiotic treatment. Will restart Meropenem and check Vancomycin levels fist given worsening creatinine levels. Local wound care. Still with decreased renal function despite normal values in the early part of June 2017. Likely multiple factors contributing to this including dehydration , poor oral appetite, and use of Vancomycin antibiotics. Unclear if the renal function will recover at this point... it is too early to tell. Recheck creatinine tomorrow. May need to consider Zyvox over Vancomycin for treatment given renal function. Check Vancomycin level tomorrow again. Level currently is 35.4 taken about 24 hours after the last administration of IV Vancomycin. Possible consideration of Zyvox use after Vancomycin levels normalize and if culture still suggest Enterococcus infection. Podiatry had recultured the foot during this hospitalization. Gram negative rods in wound cultures of the foot identified as MDR Acinetobacter. Will check with lab regarding sensitivities to additional antibiotics. The patient had received several days of meropenem. Brought to MICU after being found unresponsive. Severely hypertensive during rapid response. After a few hours in the MICU, the patient is now awake and alert. Continuing on meropenem. The patient has been afebrile and has had no leukocytosis. No new issues overnight. Creatinine stayed at 1.4 today. No leukocytosis (10.1 today). The patient had difficulty breathing mid hospitalization. Antibiotics were switched from meropenem to tigecycline. Patient is still lethargic but more arousable. Hypothermic several nights ago... normal temperatures overnight. Was on Zyvox and Meropenem for IV antibiotics. Awaiting final blood cultures ( coagulase positive cocci in clusters). Was on Tigecycline. The patient improved significantly since started on Tigecycline. VRE in urine and one blood culture. Yeast in urine and one blood culture. Removal or exchange of all indwelling catheters strongly recommended. On Daptomycin for VRE. Awaiting results of Mnpc-K-[id number] test. Repeat cultures. Vandana in one blood culture. Given QT interval cannot utilized fluconazole, may consider use of Micafungin. Source of fungi likely the PICC line that was used to administer antibiotics (it appears to have been in for 3- 4 months) which the Patient removed herself earlier in this hospitalization. [id number] test pending. One blood culture showing Vandana growth. Supportive care. If Fungitell (Rudq-P-Ovkevo test) negative, may consider stopping Mycamine. Completing Daptomycin (will place order for a dose tomorrow) and at least 7 days of Micafungin. Thank you for allowing me to participate in the care of the patient, we will follow with you.
[2017-07-31] MEDS ORDERED: DAPTOmycin 500 mg Inj (Cubicin) IVP ONE (19:00)
[2017-07-31] MEDS ORDERED: Potassium Chloride 40 mEq/30 ml LIQ UD PO SCH (19:15)
[2017-07-31] MEDS ORDERED: Potassium Chloride 40 mEq/30 ml LIQ UD PO ONE (19:18)
[2017-07-31] MEDS: Insulin Detemir 100 units/ml Vial (Levemir) SC SCH (22:35)
[2017-07-31] MEDS: Potassium & Sodium Phosphate PO SCH (22:41)
[2017-07-31] MEDS: Magnesium Sulfate 1 gm in D5W 1 GM/100 ML BAG IVPB SCH ×2 (22:42→23:54)
[2017-08-01] MEDS: Albuterol-Ipratrop 3 mg / 0.5 (3 ml) UD IH SCH ×6 (01:00→19:45)
--- NOTE | 2017-08-01 01:28 | PN ---
DATE: 07/31/2017 SUBJECTIVE: The patient is a 71-year-old female. Patient is seen and examined at the bedside. Looking comfortable. No nausea, vomiting or diarrhea. No hematuria or hematochezia. No swelling of the upper extremities. No headache. No dizziness. Awake and alert. Patient is not a good historian. REVIEW OF SYSTEMS: A 10-point of review of systems is completed, everything is normal except above. PHYSICAL EXAMINATION: VITAL SIGNS: Temperature 98.8, pulse 83, respiratory rate 20, blood pressure 116/57, pulse oximetry 100%. HEENT: Head: Normocephalic and atraumatic. Eyes: PERRLA. Extraocular muscles are intact. Conjunctivae clear. Nose patent. Mucous membrane moist. NECK: Supple. No carotid bruit, JVD or thyromegaly. CHEST: Bilaterally symmetrical. HEART: S1, S2 positive. LUNGS: Clear to auscultation. ABDOMEN: Soft. Bowel sounds present. No organomegaly. EXTREMITIES: No edema. No cyanosis. NEUROLOGIC: Patient is awake and alert. Follow simple commands. MEDICATIONS: Tylenol, DuoNeb, aspirin, Lipitor, Coreg, Plavix, dextrose, Pepcid, Feosol, Lasix, Levemir. LABORATORY DATA: We do not have recent lab today, but I reviewed old labs. ASSESSMENT AND PLAN: Ms. Tamy Abbott is a 71-year-old lady with anemia; hypokalemia; renal insufficiency; hyperglycemia; had acute renal failure, acute tubular necrosis resolving, continue to avoid nephrotoxic agents; respiratory failure, stable; hypertension, blood pressure still uncontrolled despite increasing hydralazine dose , as per Dr. Reza Cosby, proteinuria, continue present treatment. Cellulitis and abscess of the foot. Patient has cataracts in the left eye according to her, she is legally blind . From the left eye, she cannot see. Patient has history of rapid response. Plan to continue antibiotics as per Dr. Pack. Patient has Gastrointestinal and deep venous thrombosis prophylaxis. Repeat labs. We will follow up. Deisy Gilman MD [facility]
[2017-08-01 07:32] LABS: CALCIUM 8.2 mg/dL (8.4-10.5)
[2017-08-01 07:34] LABS: HEMOGLOBIN 8.8 g/dL (12.0-16.0)
[2017-08-01] MEDS: Insulin Reg-LOW-Coverage SC SCH ×4 (09:39→22:30)
[2017-08-01] MEDS: Potassium & Sodium Phosphate PO SCH (09:39)
[2017-08-01] MEDS: Micafungin 100 MG in Sodium Chloride 0.9% 100 ML IV SCH (09:40)
[2017-08-01] MEDS: Collagenase 250 Units/gm Ointment(30 gm) TOP SCH ×2 (09:57→10:13)
[2017-08-01] MEDS: Clotrimazole 1% Cream(30 gm) TOP SCH (09:57)
[2017-08-01] MEDS: Mupirocin 2% Ointment 15 GM TUBE TOP SCH ×2 (10:12→17:31)
[2017-08-01] MEDS: Nystatin 100,000 Units/gm Topical Pow(15 gm) TOP SCH (10:13)
--- NOTE | 2017-08-01 11:00 | CP.PCM.PN ---
Subjective - Date & Time of Evaluation Date of Evaluation: 08/01/17 Time of Evaluation: 10:56 - Subjective Subjective: Podiatry Progress Note for Dr. Trujillo 71F seen at bedside for R foot fissures and L foot fifth metatarsal ulceration. Patient is AAO x 3 and NAD, resting comfortably in bed at time of visit. Denies any acute overnight events or any new pedal complaints. Denies any recent N/V/F/ C/CP/SOB/D. Multipodus boots seen to be in place at time of visit Objective - Vital Signs/Intake and Output Vital Signs (last 24 hours): Temp Pulse Resp BP Pulse Ox 98.1 F 55 L 20 155/86 H 96 08/01/17 08:24 08/01/17 08:24 08/01/17 08:24 08/01/17 09:40 08/01/17 08:24 Intake and Output: 08/01/17 08/01/17 06:59 18:59 Intake Total 360 Balance 360 - Medications Medications: Current Medications Acetaminophen (Tylenol 325mg Tab) 650 mg PO Q4H PRN PRN Reason: pain fever Last Admin: 07/27/17 02:58 Dose: 650 mg Albuterol/Ipratropium (Duoneb 3 Mg/0.5 Mg (3 Ml) Ud) 3 ml IH [id number] [facility] Last Admin: 08/01/17 10:54 Dose: 3 ml Amlodipine Besylate (Norvasc) 10 mg PO DAILY [facility] Last Admin: 08/01/17 09:40 Dose: 10 mg Aspirin (Aspirin Chewable) 81 mg PO DAILY [facility] Last Admin: 08/01/17 09:38 Dose: 81 mg Atorvastatin Calcium (Lipitor) 40 mg PO DIN [facility] Last Admin: 07/31/17 17:03 Dose: 40 mg Carvedilol (Coreg) 25 mg PO Q12 [facility] Last Admin: 08/01/17 09:39 Dose: 25 mg Clopidogrel Bisulfate (Plavix) 75 mg PO DAILY [facility] Last Admin: 08/01/17 09:38 Dose: 75 mg Clotrimazole (Lotrimin 1%) 1 gm TOP DAILY [facility] Last Admin: 08/01/17 09:57 Dose: 1 applic Collagenase (Santyl) 1 gm TOP DAILY [facility] Last Admin: 08/01/17 10:13 Dose: 1 applic Dextrose (Dextrose 50% Inj) 50 ml IVP PRN PRN PRN Reason: PRN For blood glucose below 80 Famotidine (Pepcid) 20 mg PO HS [facility] Last Admin: 07/31/17 22:41 Dose: 20 mg Ferrous Sulfate (Feosol) 324 mg PO BID [facility] Last Admin: 08/01/17 09:39 Dose: 324 mg Furosemide (Lasix) 20 mg PO DAILY [facility] Last Admin: 08/01/17 09:38 Dose: 20 mg Hydralazine HCl (Apresoline) 10 mg IVP Q6 PRN PRN Reason: SBP >160 DBP>90 Last Admin: 07/30/17 14:24 Dose: 10 mg Hydralazine HCl (Apresoline) 75 mg PO QID [facility] Last Admin: 08/01/17 09:38 Dose: 75 mg Micafungin Sodium 100 mg/ (Sodium Chloride) 100 mls @ 100 mls/hr IV DAILY [facility] PRN Reason: Protocol Last Admin: 08/01/17 09:40 Dose: 100 mls/hr Insulin Detemir (Levemir) 10 unit SC [facility] Last Admin: 07/31/17 22:35 Dose: 10 unit Insulin Human Regular (Humulin R Low) 0 units SC ACHS [facility] PRN Reason: Protocol Last Admin: 08/01/17 09:39 Dose: 1 units Mupirocin (Bactroban Ointment) 1 gm TOP BID [facility] Last Admin: 08/01/17 10:12 Dose: 1 appl Nystatin (Nystop Topical Powder) 1 gm TOP DAILY [facility] Last Admin: 08/01/17 10:13 Dose: 1 applic - Labs Labs: 08/01/17 06:00 08/01/17 06:00 PT 15.1 SECONDS (9.4-12.5) H 07/20/17 09:55 INR 1.31 (0.93-1.08) H 07/20/17 09:55 APTT 37.7 Seconds (25.1-36.5) H 07/20/17 09:55 - Constitutional Appears: Well, Non-toxic, No Acute Distress - Head Exam Head Exam: ATRAUMATIC, NORMOCEPHALIC - Extremities Exam Additional comments: Lower extremity focused exam: Vasc: DP and PT pulses palpable 1/4. Temperature gradient warm to cool. CFT < 3 sec x 3 digits. Mild pedal edema noted to lateral foot Derm: Clean open ulceration measuring approximately 7 cm x 3 cm x 0.6 cm to lateral forefoot with fibrogranular wound base. There is no erythema. Minimal serous drainage noted to the dressing, no malodor, no tunneling or undermining present, no odor, no streaking, no purulence, no other clinical signs of infection. Wound appears stable at this time. Open plantar fissure noted to 3rd MPJ sulcus of the left foot, almost completely healed. No clinical signs of infection. Open fissures noted to the right foot of 3rd (resolved) 4th, and 5th MPJ sulcus, improving. No clinical signs of infection. Xerosis to the b/l foot improving Neuro: Epicritic and protective sensation severely diminished b/l Ortho: No tenderness to palpation of lateral forefoot ulceration. No other gross deformities noted - Neurological Exam Neurological Exam: Alert, Awake, Oriented x3 - Psychiatric Exam Psychiatric exam: Normal Affect, Normal Mood Assessment and Plan - Assessment and Plan (Free Text) Assessment: 71F seen at bedside for R foot fissures and L foot fifth metatarsal ulceration Plan: Patient seen and evaluated Plan discussed with attending Dr. Anderson AMISHA/PVR studies indicate mildy decreased blood flow to b/l feet w/ b/l SFA and tibial disease MRI left foot: Marrow edema and cortical destruction in the fifth metatarsal consistent with OM Nystatin powder applied to patient's right foot Left foot wound dressed with adaptic, ABD, DSD No plan for surgical intervention at this time Will continue with aggressive local wound care Podiatry will continue to follow while patient in house
[2017-08-01] MEDS ORDERED: Potassium Chloride 40 mEq/30 ml LIQ UD PO ONE (11:13)
[2017-08-01] MEDS ORDERED: Dextrose 50% SYRINGE Inj (50 ml) IVP ONE (15:56)
--- NOTE | 2017-08-01 16:22 | CP.PCM.PN ---
Subjective - Date & Time of Evaluation Date of Evaluation: 08/01/17 Time of Evaluation: 15:00 - Subjective Subjective: Infectious Disease Follow Up: August 01, 2017 71 yo AA female sent from [facility] for poor responsiveness. 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 History of E. coli and enterococcus. The E. coli is ESBL+. The patient can give little history of her own. She is currently awake and alert now. The patient was on IV Vancomycin at [place]. Unclear if she was still on Meropenem there. Renal insufficiency. The patient had normal creatinine in June 2017. Still elevated creatinine. Unclear if this is secondary to several factors such as dehydration, poor appetite, and use of Vancomycin. Vancomycin remains high at 35.4 but she did get a dose in hospital early in the hospital course. The patient is AAO x 1-2. The patient has very uneven behavior... I'm not sure if this is her normal vs. AMS. Remains agitated. Wound cultures showing gram negative rods identified as MDR Acinetobacter. Urine with yeast. Patient found unresponsive yesterday AM. The patient had rapid response and Code Stroke called. Found to be severely hypertensive yesterday AM. Taken to ICU for further care. The patient has improved since transfer to ICU and is currently awake and alert. Patient does not always make sense when speaking but that is close to her baseline. Creatinine remains elevated at 1.7. Overnight no new issues. Patient is more or less at baseline mental status. However, late yesterday afternoon, the patient had difficulty breathing again. Case discussed with Dr. Lim the Daycare Director. Switched Meropenem to Tygacil a few days ago. She remains on BiPAP. Episodes of hypothermia several nights ago down to 88.3. Normal temperatures for the last few nights. Clinically, the patient has improved. The patient is awake and alert. She appears to be answering questions appropriately. No additional complaints. Patient requesting a hamburger or hot dog now. Currently on Daptomycin and Mycamine. Completing daptomycin today. Vandana growth in aerobic bottle. Fungitell test positive. Objective - Vital Signs/Intake and Output Vital Signs (last 24 hours): Temp Pulse Resp BP Pulse Ox 98.4 F 74 18 130/52 L 100 08/01/17 14:42 08/01/17 14:42 08/01/17 14:42 08/01/17 14:42 08/01/17 14:42 Intake and Output: 08/01/17 08/01/17 06:59 18:59 Intake Total 360 240 Balance 360 240 - Medications Medications: Current Medications Acetaminophen (Tylenol 325mg Tab) 650 mg PO Q4H PRN PRN Reason: pain fever Last Admin: 07/27/17 02:58 Dose: 650 mg Albuterol/Ipratropium (Duoneb 3 Mg/0.5 Mg (3 Ml) Ud) 3 ml IH [id number] [facility] Last Admin: 08/01/17 15:04 Dose: 3 ml Amlodipine Besylate (Norvasc) 10 mg PO DAILY [facility] Last Admin: 08/01/17 09:40 Dose: 10 mg Aspirin (Aspirin Chewable) 81 mg PO DAILY [facility] Last Admin: 08/01/17 09:38 Dose: 81 mg Atorvastatin Calcium (Lipitor) 40 mg PO DIN [facility] Last Admin: 07/31/17 17:03 Dose: 40 mg Carvedilol (Coreg) 25 mg PO Q12 [facility] Last Admin: 08/01/17 09:39 Dose: 25 mg Clopidogrel Bisulfate (Plavix) 75 mg PO DAILY [facility] Last Admin: 08/01/17 09:38 Dose: 75 mg Clotrimazole (Lotrimin 1%) 1 gm TOP DAILY [facility] Last Admin: 08/01/17 09:57 Dose: 1 applic Collagenase (Santyl) 1 gm TOP DAILY [facility] Last Admin: 08/01/17 10:13 Dose: 1 applic Dextrose (Dextrose 50% Inj) 50 ml IVP PRN PRN PRN Reason: PRN For blood glucose below 80 Famotidine (Pepcid) 20 mg PO HS [facility] Last Admin: 07/31/17 22:41 Dose: 20 mg Ferrous Sulfate (Feosol) 324 mg PO BID [facility] Last Admin: 08/01/17 09:39 Dose: 324 mg Furosemide (Lasix) 20 mg PO DAILY [facility] Last Admin: 08/01/17 09:38 Dose: 20 mg Hydralazine HCl (Apresoline) 10 mg IVP Q6 PRN PRN Reason: SBP >160 DBP>90 Last Admin: 07/30/17 14:24 Dose: 10 mg Hydralazine HCl (Apresoline) 75 mg PO QID [facility] Last Admin: 08/01/17 13:51 Dose: Not Given Micafungin Sodium 100 mg/ (Sodium Chloride) 100 mls @ 100 mls/hr IV DAILY [facility] PRN Reason: Protocol Last Admin: 08/01/17 09:40 Dose: 100 mls/hr Insulin Detemir (Levemir) 10 unit SC HS [facility] Last Admin: 07/31/17 22:35 Dose: 10 unit Insulin Human Regular (Humulin R Low) 0 units SC ACHS [facility] PRN Reason: Protocol Last Admin: 08/01/17 11:52 Dose: 1 units Mupirocin (Bactroban Ointment) 1 gm TOP BID [facility] Last Admin: 08/01/17 10:12 Dose: 1 appl Nystatin (Nystop Topical Powder) 1 gm TOP DAILY [facility] Last Admin: 08/01/17 10:13 Dose: 1 applic - Labs Labs: 08/01/17 06:00 08/01/17 06:00 PT 15.1 SECONDS (9.4-12.5) H 07/20/17 09:55 INR 1.31 (0.93-1.08) H 07/20/17 09:55 APTT 37.7 Seconds (25.1-36.5) H 07/20/17 09:55 - Constitutional Appears: Non-toxic, No Acute Distress, Chronically Ill - Head Exam Head Exam: ATRAUMATIC, NORMOCEPHALIC - Eye Exam Pupil Exam: Unequal Additional comments: right eye 3 mm, left eye 4 mm - ENT Exam ENT Exam: Mucous Membranes Moist, Normal External Ear Exam, TM's Normal Bilaterally - Neck Exam Neck Exam: Full ROM, Normal Inspection - Respiratory Exam Respiratory Exam: Clear to Ausculation Bilateral, NORMAL BREATHING PATTERN. absent: Rales, Rhonchi, Wheezes - Cardiovascular Exam Cardiovascular Exam: REGULAR RHYTHM, RRR, +S1, +S2 - GI/Abdominal Exam GI & Abdominal Exam: Soft, Normal Bowel Sounds. absent: Distended, Tenderness - Extremities Exam Extremities Exam: Full ROM, Normal Inspection - Neurological Exam Neurological Exam: Alert, Awake, CN II-XII Intact Additional comments: AAO x 2. Awake and alert. Answered questions appropriately. Appears comfortable. - Psychiatric Exam Psychiatric exam: Normal Affect, Normal Mood - Skin Skin Exam: Intact, Normal Color Assessment and Plan - Assessment and Plan (Free Text) Assessment: 71 yo AA female with altered renal function and was poorly responsive at [facility]. The patient was on Vancomycin for antibiotic treatment. Will restart Meropenem and check Vancomycin levels fist given worsening creatinine levels. Local wound care. Still with decreased renal function despite normal values in the early part of June 2017. Likely multiple factors contributing to this including dehydration , poor oral appetite, and use of Vancomycin antibiotics. Unclear if the renal function will recover at this point... it is too early to tell. Recheck creatinine tomorrow. May need to consider Zyvox over Vancomycin for treatment given renal function. Check Vancomycin level tomorrow again. Level currently is 35.4 taken about 24 hours after the last administration of IV Vancomycin. Possible consideration of Zyvox use after Vancomycin levels normalize and if culture still suggest Enterococcus infection. Podiatry had recultured the foot during this hospitalization. Gram negative rods in wound cultures of the foot identified as MDR Acinetobacter. Will check with lab regarding sensitivities to additional antibiotics. The patient had received several days of meropenem. Brought to MICU after being found unresponsive. Severely hypertensive during rapid response. After a few hours in the MICU, the patient is now awake and alert. Continuing on meropenem. The patient has been afebrile and has had no leukocytosis. No new issues overnight. Creatinine stayed at 1.4 today. No leukocytosis (10.1 today). The patient had difficulty breathing mid hospitalization. Antibiotics were switched from meropenem to tigecycline. Patient is still lethargic but more arousable. Hypothermic several nights ago... normal temperatures overnight. Was on Zyvox and Meropenem for IV antibiotics. Awaiting final blood cultures ( coagulase positive cocci in clusters). Was on Tigecycline. The patient improved significantly since started on Tigecycline. VRE in urine and one blood culture. Yeast in urine and one blood culture. Removal or exchange of all indwelling catheters strongly recommended. On Daptomycin for VRE. Awaiting results of Dsao-S-Pewcpm test. Repeat cultures. Vandana in one blood culture. Given QT interval cannot utilized fluconazole, may consider use of Micafungin. Source of fungi likely the PICC line that was used to administer antibiotics (it appears to have been in for 3- 4 months) which the Patient removed herself earlier in this hospitalization. Fjav-[id number] test pending. One blood culture showing Vandana growth. Supportive care. If Fungitell (Zdqu-R-[id number] test) negative, may consider stopping Mycamine. Completed Daptomycin and at least a 7 day course of Micafungin. Thank you for allowing me to participate in the care of the patient, we will follow with you.
--- NOTE | 2017-08-01 17:17 | CP.PCM.PN ---
Subjective - Date & Time of Evaluation Date of Evaluation: 08/01/17 Time of Evaluation: 12:00 - Subjective Subjective: Reports feeling well, tolerating diet, no sob; Objective - Vital Signs/Intake and Output Vital Signs (last 24 hours): Temp Pulse Resp BP Pulse Ox 98.4 F 74 18 130/52 L 100 08/01/17 14:42 08/01/17 14:42 08/01/17 14:42 08/01/17 14:42 08/01/17 14:42 Intake and Output: 08/01/17 08/01/17 06:59 18:59 Intake Total 360 240 Balance 360 240 - Medications Medications: Current Medications Acetaminophen (Tylenol 325mg Tab) 650 mg PO Q4H PRN PRN Reason: pain fever Last Admin: 07/27/17 02:58 Dose: 650 mg Albuterol/Ipratropium (Duoneb 3 Mg/0.5 Mg (3 Ml) Ud) 3 ml IH [id number] [facility] Last Admin: 08/01/17 15:04 Dose: 3 ml Amlodipine Besylate (Norvasc) 10 mg PO DAILY [facility] Last Admin: 08/01/17 09:40 Dose: 10 mg Aspirin (Aspirin Chewable) 81 mg PO DAILY [facility] Last Admin: 08/01/17 09:38 Dose: 81 mg Atorvastatin Calcium (Lipitor) 40 mg PO DIN [facility] Last Admin: 07/31/17 17:03 Dose: 40 mg Carvedilol (Coreg) 25 mg PO Q12 [facility] Last Admin: 08/01/17 09:39 Dose: 25 mg Clopidogrel Bisulfate (Plavix) 75 mg PO DAILY [facility] Last Admin: 08/01/17 09:38 Dose: 75 mg Clotrimazole (Lotrimin 1%) 1 gm TOP DAILY [facility] Last Admin: 08/01/17 09:57 Dose: 1 applic Collagenase (Santyl) 1 gm TOP DAILY [facility] Last Admin: 08/01/17 10:13 Dose: 1 applic Dextrose (Dextrose 50% Inj) 50 ml IVP PRN PRN PRN Reason: PRN For blood glucose below 80 Famotidine (Pepcid) 20 mg PO HS [facility] Last Admin: 07/31/17 22:41 Dose: 20 mg Ferrous Sulfate (Feosol) 324 mg PO BID [facility] Last Admin: 08/01/17 09:39 Dose: 324 mg Furosemide (Lasix) 20 mg PO DAILY [facility] Last Admin: 08/01/17 09:38 Dose: 20 mg Hydralazine HCl (Apresoline) 10 mg IVP Q6 PRN PRN Reason: SBP >160 DBP>90 Last Admin: 07/30/17 14:24 Dose: 10 mg Hydralazine HCl (Apresoline) 75 mg PO QID [facility] Last Admin: 08/01/17 13:51 Dose: Not Given Micafungin Sodium 100 mg/ (Sodium Chloride) 100 mls @ 100 mls/hr IV DAILY [facility] PRN Reason: Protocol Last Admin: 08/01/17 09:40 Dose: 100 mls/hr Insulin Detemir (Levemir) 10 unit SC HS [facility] Last Admin: 07/31/17 22:35 Dose: 10 unit Insulin Human Regular (Humulin R Low) 0 units SC ACHS [facility] PRN Reason: Protocol Last Admin: 08/01/17 11:52 Dose: 1 units Mupirocin (Bactroban Ointment) 1 gm TOP BID [facility] Last Admin: 08/01/17 10:12 Dose: 1 appl Nystatin (Nystop Topical Powder) 1 gm TOP DAILY [facility] Last Admin: 08/01/17 10:13 Dose: 1 applic - Labs Labs: 08/01/17 06:00 08/01/17 06:00 PT 15.1 SECONDS (9.4-12.5) H 07/20/17 09:55 INR 1.31 (0.93-1.08) H 07/20/17 09:55 APTT 37.7 Seconds (25.1-36.5) H 07/20/17 09:55 - Constitutional Appears: Non-toxic, No Acute Distress - Eye Exam Eye Exam: absent: Scleral icterus - ENT Exam ENT Exam: Mucous Membranes Moist - Respiratory Exam Respiratory Exam: Clear to Ausculation Bilateral. absent: Respiratory Distress - Cardiovascular Exam Cardiovascular Exam: RRR, +S1, +S2 - GI/Abdominal Exam GI & Abdominal Exam: Soft. absent: Distended, Tenderness - Extremities Exam Additional comments: mild lower leg edema ,much improved; - Neurological Exam Neurological Exam: Alert, Awake - Psychiatric Exam Psychiatric exam: Normal Mood. absent: Agitated - Skin Skin Exam: Warm. absent: Cyanosis Assessment and Plan (1) Acute renal failure Assessment & Plan: Renal function likely at baseline; mild renal insufficieny; monitor periodically ; avoid nephrotoxic agents; Status: Resolved (2) Respiratory failure Status: Acute (3) Hypertension Assessment & Plan: BP much better controlled; continue current meds; Status: Acute (4) Proteinuria Status: Resolved (5) Cellulitis and abscess Status: Acute (6) Sepsis Assessment & Plan: On micafungin, no renal dose adjustment needed; should dose any abx for CrCl < 60 ml/min; Status: Acute
[2017-08-01] MEDS: Insulin Detemir 100 units/ml Vial (Levemir) SC SCH (22:30)
[2017-08-02] MEDS: Albuterol-Ipratrop 3 mg / 0.5 (3 ml) UD IH SCH ×6 (00:20→23:51)
--- NOTE | 2017-08-02 06:12 | PN ---
DATE: 08/01/2017 SUBJECTIVE: The patient was seen and examined at the bedside on 08/01/2017, looking comfortable, having her dinner, tolerating the diet very well. No shortness of breath. No nausea or vomiting. No headache. No dizziness. No chest pain. No palpitation. Patient is very poor historian. PHYSICAL EXAMINATION: VITAL SIGNS: Temperature 98.4, pulse 74, respiratory rate 18, blood pressure 113/52, pulse oximetry 100. HEENT: Head: Normocephalic, atraumatic. Eyes: PERRLA. Extraocular muscles intact. Conjunctivae clear. Nose patent. Mucous membrane moist. NECK: Supple. No carotid bruit. No JVD or thyromegaly. CHEST: Bilaterally symmetrical. HEART: S1 and S2 positive. LUNGS: Clear to auscultation. ABDOMEN: Soft. Bowel sounds positive. No organomegaly. EXTREMITIES: No edema. No cyanosis. NEUROLOGIC: The patient is awake and alert, obeying simple orders. MEDICATIONS: DuoNeb, Norvasc, aspirin, Lipitor, Coreg, Plavix, dextrose, Pepcid, Feosol, Lasix, micafungin, and insulin. LABORATORY DATA: Hemoglobin 8.8, hematocrit 27.7. Sodium 148, potassium 3.4, BUN 26, creatinine 1.1, glucose 199. ASSESSMENT AND PLAN: Ms. Tamy Abbott is a 71-year-old lady with anemia, hypokalemia, renal insufficiency, hyperglycemia, acute renal failure, renal function is likely at baseline, mild renal insufficiency, monitoring periodically, avoid nephrotoxic agents, respiratory failure, acute hypertension, proteinuria, cellulitis and abscess, sepsis, on micafungin. No renal dose adjustment needed. Should dose any antibiotics for creatinine clearance less than 50 mL/min. Appreciated Dr. Reza Cosby's notes. Continue antibiotics as per Dr. Pack. Podiatry is on the case. Repeat labs. We will follow up. Deisy Gilman MD
[2017-08-02] MEDS: Insulin Reg-LOW-Coverage SC SCH ×4 (08:00→21:44)
[2017-08-02] MEDS: Micafungin 100 MG in Sodium Chloride 0.9% 100 ML IV SCH (09:16)
[2017-08-02] MEDS: Collagenase 250 Units/gm Ointment(30 gm) TOP SCH (09:17)
[2017-08-02] MEDS: Clotrimazole 1% Cream(30 gm) TOP SCH (09:18)
[2017-08-02] MEDS: Nystatin 100,000 Units/gm Topical Pow(15 gm) TOP SCH (09:18)
[2017-08-02] MEDS: Mupirocin 2% Ointment 15 GM TUBE TOP SCH ×2 (10:00→17:35)
--- NOTE | 2017-08-02 14:02 | CP.PCM.PN ---
<Myron Melendez - Last Filed: 08/02/17 14:05> Subjective - Date & Time of Evaluation Date of Evaluation: 08/02/17 Time of Evaluation: 13:59 - Subjective Subjective: Podiatry Progress Note for Dr. Trujillo 71F seen at bedside for R foot fissures and L foot fifth metatarsal ulceration. Patient is seen resting comfortably in bed, in NAD, and AAO x 3 and NAD. Reports that she is feeling well. Denies any acute overnight events or any new pedal complaints. Denies any recent N/V/F/C/CP/SOB/D. Denies any pain to her lower extremity. Multipodus boots seen to be in place at time of visit Objective - Vital Signs/Intake and Output Vital Signs (last 24 hours): Temp Pulse Resp BP Pulse Ox 98.9 F 83 18 164/81 H 98 08/02/17 08:59 08/02/17 09:17 08/02/17 08:59 08/02/17 09:17 08/02/17 08:59 Intake and Output: 08/02/17 08/02/17 06:59 18:59 Intake Total 600 Balance 600 - Medications Medications: Current Medications Acetaminophen (Tylenol 325mg Tab) 650 mg PO Q4H PRN PRN Reason: pain fever Last Admin: 07/27/17 02:58 Dose: 650 mg Albuterol/Ipratropium (Duoneb 3 Mg/0.5 Mg (3 Ml) Ud) 3 ml IH [id number] [facility] Last Admin: 08/02/17 11:13 Dose: 3 ml Amlodipine Besylate (Norvasc) 10 mg PO DAILY [facility] Last Admin: 08/02/17 09:17 Dose: 10 mg Aspirin (Aspirin Chewable) 81 mg PO DAILY [facility] Last Admin: 08/02/17 09:17 Dose: 81 mg Atorvastatin Calcium (Lipitor) 40 mg PO DIN [facility] Last Admin: 08/01/17 17:30 Dose: 40 mg Carvedilol (Coreg) 25 mg PO Q12 [facility] Last Admin: 08/02/17 09:17 Dose: 25 mg Clopidogrel Bisulfate (Plavix) 75 mg PO DAILY [facility] Last Admin: 08/02/17 09:17 Dose: 75 mg Clotrimazole (Lotrimin 1%) 1 gm TOP DAILY [facility] Last Admin: 08/02/17 09:18 Dose: 1 applic Collagenase (Santyl) 1 gm TOP DAILY [facility] Last Admin: 08/02/17 09:17 Dose: 1 applic Dextrose (Dextrose 50% Inj) 50 ml IVP PRN PRN PRN Reason: PRN For blood glucose below 80 Last Admin: 08/01/17 22:18 Dose: 50 ml Famotidine (Pepcid) 20 mg PO HS [facility] Last Admin: 08/01/17 22:39 Dose: Not Given Ferrous Sulfate (Feosol) 324 mg PO BID [facility] Last Admin: 08/02/17 09:16 Dose: 324 mg Furosemide (Lasix) 20 mg PO DAILY [facility] Last Admin: 08/02/17 09:17 Dose: 20 mg Hydralazine HCl (Apresoline) 10 mg IVP Q6 PRN PRN Reason: SBP >160 DBP>90 Last Admin: 07/30/17 14:24 Dose: 10 mg Hydralazine HCl (Apresoline) 75 mg PO QID [facility] Last Admin: 08/02/17 09:16 Dose: 75 mg Micafungin Sodium 100 mg/ (Sodium Chloride) 100 mls @ 100 mls/hr IV DAILY [facility] PRN Reason: Protocol Last Admin: 08/02/17 09:16 Dose: 100 mls/hr Insulin Detemir (Levemir) 10 unit SC HS [facility] Last Admin: 08/01/17 22:30 Dose: Not Given Insulin Human Regular (Humulin R Low) 0 units SC ACHS [facility] PRN Reason: Protocol Last Admin: 08/02/17 12:30 Dose: 2 units Mupirocin (Bactroban Ointment) 1 gm TOP BID [facility] Last Admin: 08/01/17 17:31 Dose: 1 appl Nystatin (Nystop Topical Powder) 1 gm TOP DAILY [facility] Last Admin: 08/02/17 09:18 Dose: 1 applic - Labs Labs: 08/01/17 06:00 08/01/17 06:00 PT 15.1 SECONDS (9.4-12.5) H 07/20/17 09:55 INR 1.31 (0.93-1.08) H 07/20/17 09:55 APTT 37.7 Seconds (25.1-36.5) H 07/20/17 09:55 - Constitutional Appears: Well, Non-toxic, No Acute Distress - Extremities Exam Extremities Exam: absent: Calf Tenderness Additional comments: Lower extremity focused exam: Vasc: DP and PT pulses palpable 1/4. Temperature gradient warm to cool. CFT < 3 sec x 3 digits. Mild pedal edema noted to lateral foot Derm: Clean open ulceration measuring approximately 7 cm x 3 cm x 0.6 cm to lateral forefoot with fibrogranular wound base. There is no erythema. Minimal serous drainage noted to the dressing, no malodor, no tunneling or undermining present, no odor, no streaking, no purulence, no other clinical signs of infection. Wound appears stable at this time. Open plantar fissure noted to 3rd MPJ sulcus of the left foot, almost completely healed. No clinical signs of infection. Open fissures noted to the right foot of 3rd (resolved) 4th, and 5th MPJ sulcus, improving. No clinical signs of infection. Xerosis to the b/l foot improving Neuro: Epicritic and protective sensation severely diminished b/l Ortho: No tenderness to palpation of lateral forefoot ulceration. No other gross deformities noted - Neurological Exam Neurological Exam: Alert, Awake, Oriented x3 - Psychiatric Exam Psychiatric exam: Normal Affect, Normal Mood Assessment and Plan - Assessment and Plan (Free Text) Assessment: 71F seen at bedside for R foot fissures and L foot fifth metatarsal ulceration Plan: Patient seen and evaluated Plan discussed with attending Dr. Trujillo AMISHA/PVR studies indicate mildy decreased blood flow to b/l feet w/ b/l SFA and tibial disease MRI left foot: Marrow edema and cortical destruction in the fifth metatarsal consistent with OM Nystatin powder applied to patient's right foot Left foot wound dressed with adaptic, ABD, DSD No plan for surgical intervention at this time Will continue with aggressive local wound care Podiatry will continue to follow while patient in house <Harrison Trujillo - Last Filed: 08/02/17 15:38> Objective - Vital Signs/Intake and Output Vital Signs (last 24 hours): Temp Pulse Resp BP Pulse Ox 98.9 F 88 18 142/62 98 08/02/17 08:59 08/02/17 14:46 08/02/17 08:59 08/02/17 14:46 08/02/17 08:59 Intake and Output: 08/02/17 08/02/17 06:59 18:59 Intake Total 600 120 Balance 600 120 - Medications Medications: Current Medications Acetaminophen (Tylenol 325mg Tab) 650 mg PO Q4H PRN PRN Reason: pain fever Last Admin: 07/27/17 02:58 Dose: 650 mg Albuterol/Ipratropium (Duoneb 3 Mg/0.5 Mg (3 Ml) Ud) 3 ml IH [id number] [facility] Last Admin: 08/02/17 15:33 Dose: 3 ml Amlodipine Besylate (Norvasc) 10 mg PO DAILY [facility] Last Admin: 08/02/17 09:17 Dose: 10 mg Aspirin (Aspirin Chewable) 81 mg PO DAILY [facility] Last Admin: 08/02/17 09:17 Dose: 81 mg Atorvastatin Calcium (Lipitor) 40 mg PO DIN [facility] Last Admin: 08/01/17 17:30 Dose: 40 mg Carvedilol (Coreg) 25 mg PO Q12 [facility] Last Admin: 08/02/17 09:17 Dose: 25 mg Clopidogrel Bisulfate (Plavix) 75 mg PO DAILY [facility] Last Admin: 08/02/17 09:17 Dose: 75 mg Clotrimazole (Lotrimin 1%) 1 gm TOP DAILY [facility] Last Admin: 08/02/17 09:18 Dose: 1 applic Collagenase (Santyl) 1 gm TOP DAILY [facility] Last Admin: 08/02/17 09:17 Dose: 1 applic Dextrose (Dextrose 50% Inj) 50 ml IVP PRN PRN PRN Reason: PRN For blood glucose below 80 Last Admin: 08/01/17 22:18 Dose: 50 ml Famotidine (Pepcid) 20 mg PO HS [facility] Last Admin: 08/01/17 22:39 Dose: Not Given Ferrous Sulfate (Feosol) 324 mg PO BID [facility] Last Admin: 08/02/17 09:16 Dose: 324 mg Furosemide (Lasix) 20 mg PO DAILY [facility] Last Admin: 08/02/17 09:17 Dose: 20 mg Hydralazine HCl (Apresoline) 10 mg IVP Q6 PRN PRN Reason: SBP >160 DBP>90 Last Admin: 07/30/17 14:24 Dose: 10 mg Hydralazine HCl (Apresoline) 75 mg PO QID [facility] Last Admin: 08/02/17 14:46 Dose: 75 mg Micafungin Sodium 100 mg/ (Sodium Chloride) 100 mls @ 100 mls/hr IV DAILY [facility] PRN Reason: Protocol Last Admin: 08/02/17 09:16 Dose: 100 mls/hr Insulin Detemir (Levemir) 10 unit SC HS [facility] Last Admin: 08/01/17 22:30 Dose: Not Given Insulin Human Regular (Humulin R Low) 0 units SC ACHS [facility] PRN Reason: Protocol Last Admin: 08/02/17 12:30 Dose: 2 units Mupirocin (Bactroban Ointment) 1 gm TOP BID [facility] Last Admin: 08/01/17 17:31 Dose: 1 appl Nystatin (Nystop Topical Powder) 1 gm TOP DAILY [facility] Last Admin: 08/02/17 09:18 Dose: 1 applic - Labs Labs: 08/01/17 06:00 08/01/17 06:00 PT 15.1 SECONDS (9.4-12.5) H 07/20/17 09:55 INR 1.31 (0.93-1.08) H 07/20/17 09:55 APTT 37.7 Seconds (25.1-36.5) H 07/20/17 09:55 Attending/Attestation - Attestation I have personally seen and examined this patient.: Yes I have fully participated in the care of the patient.: Yes I have reviewed all pertinent clinical information, including history, physical exam and plan: Yes
[2017-08-02 15:38] VITALS: RESP 20
--- NOTE | 2017-08-02 18:22 | CP.PCM.PN ---
Subjective - Date & Time of Evaluation Date of Evaluation: 08/02/17 Time of Evaluation: 16:00 - Subjective Subjective: Infectious Disease Follow Up: August 02, 2017 71 yo AA female sent from [facility] for poor responsiveness. 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 History of E. coli and enterococcus. The E. coli is ESBL+. The patient can give little history of her own. She is currently awake and alert now. The patient was on IV Vancomycin at [place]. Unclear if she was still on Meropenem there. Renal insufficiency. The patient had normal creatinine in June 2017. Still elevated creatinine. Unclear if this is secondary to several factors such as dehydration, poor appetite, and use of Vancomycin. Vancomycin remains high at 35.4 but she did get a dose in hospital early in the hospital course. The patient is AAO x 1-2. The patient has very uneven behavior... I'm not sure if this is her normal vs. AMS. Remains agitated. Wound cultures showing gram negative rods identified as MDR Acinetobacter. Urine with yeast. Patient found unresponsive yesterday AM. The patient had rapid response and Code Stroke called. Found to be severely hypertensive yesterday AM. Taken to ICU for further care. The patient has improved since transfer to ICU and is currently awake and alert. Patient does not always make sense when speaking but that is close to her baseline. Creatinine remains elevated at 1.7. Overnight no new issues. Patient is more or less at baseline mental status. However, late yesterday afternoon, the patient had difficulty breathing again. Case discussed with Dr. Lim the Performance Engineer. Switched Meropenem to Tygacil a few days ago. She remains on BiPAP. Episodes of hypothermia several nights ago down to 88.3. Normal temperatures for the last few nights. Clinically, the patient has improved. The patient is awake and alert. She appears to be answering questions appropriately. No additional complaints. Patient requesting a hamburger or hot dog now. Currently on Daptomycin and Mycamine. Completed daptomycin. Vandana growth in aerobic bottle. Fungitell test positive. Objective - Vital Signs/Intake and Output Vital Signs (last 24 hours): Temp Pulse Resp BP Pulse Ox 98.1 F 81 20 157/81 H 96 08/02/17 15:37 08/02/17 17:34 08/02/17 15:37 08/02/17 17:34 08/02/17 15:37 Intake and Output: 08/02/17 08/02/17 06:59 18:59 Intake Total 600 120 Balance 600 120 - Medications Medications: Current Medications Acetaminophen (Tylenol 325mg Tab) 650 mg PO Q4H PRN PRN Reason: pain fever Last Admin: 07/27/17 02:58 Dose: 650 mg Albuterol/Ipratropium (Duoneb 3 Mg/0.5 Mg (3 Ml) Ud) 3 ml IH [id number] [facility] Last Admin: 08/02/17 15:33 Dose: 3 ml Amlodipine Besylate (Norvasc) 10 mg PO DAILY [facility] Last Admin: 08/02/17 09:17 Dose: 10 mg Aspirin (Aspirin Chewable) 81 mg PO DAILY [facility] Last Admin: 08/02/17 09:17 Dose: 81 mg Atorvastatin Calcium (Lipitor) 40 mg PO DIN [facility] Last Admin: 08/02/17 17:34 Dose: 40 mg Carvedilol (Coreg) 25 mg PO Q12 [facility] Last Admin: 08/02/17 09:17 Dose: 25 mg Clopidogrel Bisulfate (Plavix) 75 mg PO DAILY [facility] Last Admin: 08/02/17 09:17 Dose: 75 mg Clotrimazole (Lotrimin 1%) 1 gm TOP DAILY [facility] Last Admin: 08/02/17 09:18 Dose: 1 applic Collagenase (Santyl) 1 gm TOP DAILY [facility] Last Admin: 08/02/17 09:17 Dose: 1 applic Dextrose (Dextrose 50% Inj) 50 ml IVP PRN PRN PRN Reason: PRN For blood glucose below 80 Last Admin: 08/01/17 22:18 Dose: 50 ml Famotidine (Pepcid) 20 mg PO HS [facility] Last Admin: 08/01/17 22:39 Dose: Not Given Ferrous Sulfate (Feosol) 324 mg PO BID [facility] Last Admin: 08/02/17 09:16 Dose: 324 mg Furosemide (Lasix) 20 mg PO DAILY [facility] Last Admin: 08/02/17 09:17 Dose: 20 mg Hydralazine HCl (Apresoline) 10 mg IVP Q6 PRN PRN Reason: SBP >160 DBP>90 Last Admin: 07/30/17 14:24 Dose: 10 mg Hydralazine HCl (Apresoline) 75 mg PO QID [facility] Last Admin: 08/02/17 17:34 Dose: 75 mg Micafungin Sodium 100 mg/ (Sodium Chloride) 100 mls @ 100 mls/hr IV DAILY [facility] PRN Reason: Protocol Last Admin: 08/02/17 09:16 Dose: 100 mls/hr Insulin Detemir (Levemir) 10 unit SC HS [facility] Last Admin: 08/01/17 22:30 Dose: Not Given Insulin Human Regular (Humulin R Low) 0 units SC ACHS [facility] PRN Reason: Protocol Last Admin: 08/02/17 17:26 Dose: 2 units Mupirocin (Bactroban Ointment) 1 gm TOP BID [facility] Last Admin: 08/02/17 17:35 Dose: 1 appl Nystatin (Nystop Topical Powder) 1 gm TOP DAILY [facility] Last Admin: 08/02/17 09:18 Dose: 1 applic - Labs Labs: 08/01/17 06:00 08/01/17 06:00 PT 15.1 SECONDS (9.4-12.5) H 07/20/17 09:55 INR 1.31 (0.93-1.08) H 07/20/17 09:55 APTT 37.7 Seconds (25.1-36.5) H 07/20/17 09:55 - Constitutional Appears: Non-toxic, No Acute Distress, Chronically Ill - Head Exam Head Exam: ATRAUMATIC, NORMOCEPHALIC - Eye Exam Pupil Exam: Unequal Additional comments: right eye 3 mm, left eye 4 mm - ENT Exam ENT Exam: Mucous Membranes Moist, Normal External Ear Exam, TM's Normal Bilaterally - Neck Exam Neck Exam: Full ROM, Normal Inspection - Respiratory Exam Respiratory Exam: Clear to Ausculation Bilateral, NORMAL BREATHING PATTERN. absent: Rales, Rhonchi, Wheezes - Cardiovascular Exam Cardiovascular Exam: REGULAR RHYTHM, RRR, +S1, +S2 - GI/Abdominal Exam GI & Abdominal Exam: Soft, Normal Bowel Sounds. absent: Distended, Tenderness - Extremities Exam Extremities Exam: Full ROM, Normal Inspection - Neurological Exam Neurological Exam: Alert, Awake, CN II-XII Intact Additional comments: AAO x 2. Awake and alert. Answered questions appropriately. Appears comfortable. - Psychiatric Exam Psychiatric exam: Normal Affect, Normal Mood - Skin Skin Exam: Intact, Normal Color Assessment and Plan - Assessment and Plan (Free Text) Assessment: 71 yo AA female with altered renal function and was poorly responsive at [facility]. The patient was on Vancomycin for antibiotic treatment. Will restart Meropenem and check Vancomycin levels fist given worsening creatinine levels. Local wound care. Still with decreased renal function despite normal values in the early part of June 2017. Likely multiple factors contributing to this including dehydration , poor oral appetite, and use of Vancomycin antibiotics. Unclear if the renal function will recover at this point... it is too early to tell. Recheck creatinine tomorrow. May need to consider Zyvox over Vancomycin for treatment given renal function. Check Vancomycin level tomorrow again. Level currently is 35.4 taken about 24 hours after the last administration of IV Vancomycin. Possible consideration of Zyvox use after Vancomycin levels normalize and if culture still suggest Enterococcus infection. Podiatry had recultured the foot during this hospitalization. Gram negative rods in wound cultures of the foot identified as MDR Acinetobacter. Will check with lab regarding sensitivities to additional antibiotics. The patient had received several days of meropenem. Brought to MICU after being found unresponsive. Severely hypertensive during rapid response. After a few hours in the MICU, the patient is now awake and alert. Continuing on meropenem. The patient has been afebrile and has had no leukocytosis. No new issues overnight. Creatinine stayed at 1.4 today. No leukocytosis (10.1 today). The patient had difficulty breathing mid hospitalization. Antibiotics were switched from meropenem to tigecycline. Patient is still lethargic but more arousable. Hypothermic several nights ago... normal temperatures overnight. Was on Zyvox and Meropenem for IV antibiotics. Awaiting final blood cultures ( coagulase positive cocci in clusters). Was on Tigecycline. The patient improved significantly since started on Tigecycline. VRE in urine and one blood culture. Yeast in urine and one blood culture. Removal or exchange of all indwelling catheters strongly recommended. On Daptomycin for VRE. Awaiting results of [id number] test. Repeat cultures. Vandana in one blood culture. Given QT interval cannot utilized fluconazole, may consider use of Micafungin. Source of fungi likely the PICC line that was used to administer antibiotics (it appears to have been in for 3- 4 months) which the Patient removed herself earlier in this hospitalization. [id number] test pending. One blood culture showing Vandana growth. Supportive care. If Fungitell (Ribf-D-Lluhoc test) negative, may consider stopping Mycamine. Completed Daptomycin and at least a 7 day course of Micafungin. Thank you for allowing me to participate in the care of the patient, we will follow with you.
--- NOTE | 2017-08-02 20:13 | CP.PCM.PN ---
Subjective - Date & Time of Evaluation Date of Evaluation: 08/02/17 Time of Evaluation: 12:00 - Subjective Subjective: Reportedly feeling well, tolerating diet, no breathing issues; Objective - Vital Signs/Intake and Output Vital Signs (last 24 hours): Temp Pulse Resp BP Pulse Ox 98.1 F 81 20 157/81 H 96 08/02/17 15:37 08/02/17 17:34 08/02/17 15:37 08/02/17 17:34 08/02/17 15:37 Intake and Output: 08/02/17 08/03/17 18:59 06:59 Intake Total 120 Balance 120 - Medications Medications: Current Medications Acetaminophen (Tylenol 325mg Tab) 650 mg PO Q4H PRN PRN Reason: pain fever Last Admin: 07/27/17 02:58 Dose: 650 mg Albuterol/Ipratropium (Duoneb 3 Mg/0.5 Mg (3 Ml) Ud) 3 ml IH [id number] [facility] Last Admin: 08/02/17 20:00 Dose: 3 ml Amlodipine Besylate (Norvasc) 10 mg PO DAILY [facility] Last Admin: 08/02/17 09:17 Dose: 10 mg Aspirin (Aspirin Chewable) 81 mg PO DAILY [facility] Last Admin: 08/02/17 09:17 Dose: 81 mg Atorvastatin Calcium (Lipitor) 40 mg PO DIN [facility] Last Admin: 08/02/17 17:34 Dose: 40 mg Carvedilol (Coreg) 25 mg PO Q12 [facility] Last Admin: 08/02/17 09:17 Dose: 25 mg Clopidogrel Bisulfate (Plavix) 75 mg PO DAILY [facility] Last Admin: 08/02/17 09:17 Dose: 75 mg Clotrimazole (Lotrimin 1%) 1 gm TOP DAILY [facility] Last Admin: 08/02/17 09:18 Dose: 1 applic Collagenase (Santyl) 1 gm TOP DAILY [facility] Last Admin: 08/02/17 09:17 Dose: 1 applic Dextrose (Dextrose 50% Inj) 50 ml IVP PRN PRN PRN Reason: PRN For blood glucose below 80 Last Admin: 08/01/17 22:18 Dose: 50 ml Famotidine (Pepcid) 20 mg PO HS [facility] Last Admin: 08/01/17 22:39 Dose: Not Given Ferrous Sulfate (Feosol) 324 mg PO BID [facility] Last Admin: 08/02/17 09:16 Dose: 324 mg Furosemide (Lasix) 20 mg PO DAILY [facility] Last Admin: 08/02/17 09:17 Dose: 20 mg Hydralazine HCl (Apresoline) 10 mg IVP Q6 PRN PRN Reason: SBP >160 DBP>90 Last Admin: 07/30/17 14:24 Dose: 10 mg Hydralazine HCl (Apresoline) 75 mg PO QID [facility] Last Admin: 08/02/17 17:34 Dose: 75 mg Micafungin Sodium 100 mg/ (Sodium Chloride) 100 mls @ 100 mls/hr IV DAILY [facility] PRN Reason: Protocol Last Admin: 08/02/17 09:16 Dose: 100 mls/hr Insulin Detemir (Levemir) 10 unit SC HS [facility] Last Admin: 08/01/17 22:30 Dose: Not Given Insulin Human Regular (Humulin R Low) 0 units SC ACHS [facility] PRN Reason: Protocol Last Admin: 08/02/17 17:26 Dose: 2 units Mupirocin (Bactroban Ointment) 1 gm TOP BID [facility] Last Admin: 08/02/17 17:35 Dose: 1 appl Nystatin (Nystop Topical Powder) 1 gm TOP DAILY [facility] Last Admin: 08/02/17 09:18 Dose: 1 applic - Labs Labs: 08/01/17 06:00 08/01/17 06:00 PT 15.1 SECONDS (9.4-12.5) H 07/20/17 09:55 INR 1.31 (0.93-1.08) H 07/20/17 09:55 APTT 37.7 Seconds (25.1-36.5) H 07/20/17 09:55 - Constitutional Appears: Non-toxic, No Acute Distress - Respiratory Exam Respiratory Exam: Clear to Ausculation Bilateral. absent: Respiratory Distress - Cardiovascular Exam Cardiovascular Exam: RRR, +S1, +S2 - GI/Abdominal Exam GI & Abdominal Exam: Soft. absent: Distended, Tenderness - Extremities Exam Additional comments: mild lower leg edema; - Neurological Exam Neurological Exam: Alert, Awake - Psychiatric Exam Psychiatric exam: absent: Agitated Additional comments: confused - Skin Skin Exam: Warm. absent: Cyanosis Assessment and Plan (1) Acute renal failure Assessment & Plan: Renal function likely at baseline, likely has some mild CKD; continue to avoid nephrotoxic agents; Status: Resolved (2) Respiratory failure Status: Acute (3) Hypertension Assessment & Plan: BP much better controlled, continue current meds; Status: Acute (4) Proteinuria Status: Resolved (5) Cellulitis and abscess Status: Acute (6) Sepsis Assessment & Plan: Currently on micafungin only; no renal dose adjustment needed; Status: Acute
[2017-08-02] MEDS: Insulin Detemir 100 units/ml Vial (Levemir) SC SCH (21:43)
[2017-08-03] MEDS: Albuterol-Ipratrop 3 mg / 0.5 (3 ml) UD IH SCH ×5 (04:59→19:13)
[2017-08-03] MEDS: Insulin Reg-LOW-Coverage SC SCH ×2 (08:13→12:04)
--- NOTE | 2017-08-03 08:25 | PN ---
DATE: 08/02/2017 SUBJECTIVE: Patient is a 71-year-old female. Patient was seen and examined on the bedside, looking comfortable. No nausea or vomiting. No diarrhea. No hematuria or hematochezia. No swelling of the legs. No chest pain. No palpitation. No headache. No dizziness. Patient is a very poor historian. PHYSICAL EXAMINATION: VITAL SIGNS: Temperature 98.1, pulse 81, respiratory rate 20, blood pressure 157/81, pulse oximetry 96. HEENT: Head normocephalic, atraumatic. Eyes PERRLA. Extraocular muscles intact. Conjunctivae clear. Nose patent. Mucous membranes moist. NECK: Supple. No carotid bruit, JVD or thyromegaly. CHEST: Bilaterally symmetrical. HEART: S1 and S2 positive. LUNGS: Clear to auscultation. ABDOMEN: Soft. Bowel sounds present. No organomegaly. EXTREMITIES: Upper extremities, no edema. No cyanosis. NEUROLOGIC: Patient is awake and alert. Follow simple commands. MEDICATIONS: Tylenol, DuoNeb, Norvasc, aspirin, Lipitor, Coreg, Plavix, Lotrimin, Dextrose, Pepcid. LABORATORY DATA: Hemoglobin 8.8, hematocrit 27.7. Sodium 142, potassium 3.4, BUN 23, creatinine 1.1, glucose 199. ASSESSMENT AND PLAN: Ms. Tamy Abbott is a 71-year-old female with anemia, hypokalemia, hyperglycemia, acute renal failure, respiratory failure, hypertension, proteinuria, cellulitis and abscess of the foot, sepsis. Manufacturing Intern Dr. Reza Cosby is on the case. Infectious Disease Dr. Pack is on the case. Continue antibiotics. Dr. Cole of Podiatry is on the case. Getting local wound care. According to Dr. Pack, may need to consider Zyvox over vancomycin for treatment given renal function. Gram-negative rods in the wound. Cultures of the foot identified as [id number] Acinetobacter. Gastrointestinal and deep vein thrombosis prophylaxis. Repeat labs. We will follow up. Deisy Gilman MD
[2017-08-03] MEDS: Nystatin 100,000 Units/gm Topical Pow(15 gm) TOP SCH (10:20)
[2017-08-03] MEDS: Mupirocin 2% Ointment 15 GM TUBE TOP SCH (10:20)
[2017-08-03] MEDS: Clotrimazole 1% Cream(30 gm) TOP SCH (10:20)
[2017-08-03] MEDS: Micafungin 100 MG in Sodium Chloride 0.9% 100 ML IV SCH (10:20)
[2017-08-03] MEDS: Collagenase 250 Units/gm Ointment(30 gm) TOP SCH (10:21)
[2017-08-03 11:36] LABS: BASO # 0.01 K/mm3 (0.0-2.0); BASO % 0.1 % (0.0-3.0); EOS # 0.2 (0.0-0.7); EOS % 1.4 % (1.5-5.0); GRAN # 9.02 (1.4-6.5); GRAN % 72.2 % (50.0-68.0); HEMOGLOBIN 8.6 g/dL (12.0-16.0); LYMPH # 1.2 (1.2-3.4); LYMPH % 9.8 % (22.0-35.0); MEAN CELL VOLUME 80.1 fl (80.0-105.0); MEAN CORPUSCULAR HEMOGLOBIN 25.6 pg (25.0-35.0); MEAN PLATELET VOLUME 10.4 fl (7.0-11.0); MONO # 2.1 (0.1-0.6); MONO % 16.5 % (1.0-6.0); RBC 3.36 10^6/uL (3.5-6.1); RED CELL DISTRIBUTION WIDTH 16.3 % (11.5-14.5); WHITE BLOOD COUNT 12.5 10^3/ul (4.5-11.0)
[2017-08-03 11:47] LABS: ALB/GLOB RATIO 0.9 (1.1-1.8); ALBUMIN 2.9 g/dL (3.0-4.8); CALCIUM 8.1 mg/dL (8.4-10.5)
[2017-08-03 14:49] VITALS: BP 135/59; PULSE 83
[2017-08-03 15:40] VITALS: TEMP 98.4; O2SAT 94
--- NOTE | 2017-08-03 20:29 | CP.PCM.PN ---
Subjective - Date & Time of Evaluation Date of Evaluation: 08/03/17 Time of Evaluation: 17:00 - Subjective Subjective: Infectious Disease Follow Up: August 03, 2017 71 yo AA female sent from [facility] for poor responsiveness. 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 History of E. coli and enterococcus. The E. coli is ESBL+. The patient can give little history of her own. She is currently awake and alert now. The patient was on IV Vancomycin at [place]. Unclear if she was still on Meropenem there. Renal insufficiency. The patient had normal creatinine in June 2017. Still elevated creatinine. Unclear if this is secondary to several factors such as dehydration, poor appetite, and use of Vancomycin. Vancomycin remains high at 35.4 but she did get a dose in hospital early in the hospital course. The patient is AAO x 1-2. The patient has very uneven behavior... I'm not sure if this is her normal vs. AMS. Remains agitated. Wound cultures showing gram negative rods identified as MDR Acinetobacter. Urine with yeast. Patient found unresponsive yesterday AM. The patient had rapid response and Code Stroke called. Found to be severely hypertensive yesterday AM. Taken to ICU for further care. The patient has improved since transfer to ICU and is currently awake and alert. Patient does not always make sense when speaking but that is close to her baseline. Creatinine remains elevated at 1.7. Overnight no new issues. Patient is more or less at baseline mental status. However, late yesterday afternoon, the patient had difficulty breathing again. Case discussed with Dr. Lim the Labor Relations Teacher. Switched Meropenem to Tygacil a few days ago. She remains on BiPAP. Episodes of hypothermia several nights ago down to 88.3. Normal temperatures for the last few nights. Clinically, the patient has improved. The patient is awake and alert. She appears to be answering questions appropriately. No additional complaints. Patient requesting a hamburger or hot dog now. Currently on Daptomycin and Mycamine. Completed daptomycin. Vandana growth in aerobic bottle. Fungitell test positive. Completing Mycamine today. Objective - Vital Signs/Intake and Output Vital Signs (last 24 hours): Temp Pulse Resp BP Pulse Ox 98.4 F 83 20 135/59 L 94 L 08/03/17 14:00 08/03/17 14:48 08/03/17 14:00 08/03/17 14:48 08/03/17 14:00 - Labs Labs: 08/03/17 11:20 08/03/17 11:20 PT 15.1 SECONDS (9.4-12.5) H 07/20/17 09:55 INR 1.31 (0.93-1.08) H 07/20/17 09:55 APTT 37.7 Seconds (25.1-36.5) H 07/20/17 09:55 - Constitutional Appears: Non-toxic, No Acute Distress, Chronically Ill - Head Exam Head Exam: ATRAUMATIC, NORMOCEPHALIC - Eye Exam Pupil Exam: Unequal Additional comments: right eye 3 mm, left eye 4 mm - ENT Exam ENT Exam: Mucous Membranes Moist, Normal External Ear Exam, TM's Normal Bilaterally - Neck Exam Neck Exam: Full ROM, Normal Inspection - Respiratory Exam Respiratory Exam: Clear to Ausculation Bilateral, NORMAL BREATHING PATTERN. absent: Rales, Rhonchi, Wheezes - Cardiovascular Exam Cardiovascular Exam: REGULAR RHYTHM, RRR, +S1, +S2 - GI/Abdominal Exam GI & Abdominal Exam: Soft, Normal Bowel Sounds. absent: Distended, Tenderness - Extremities Exam Extremities Exam: Full ROM, Normal Inspection - Neurological Exam Neurological Exam: Alert, Awake, CN II-XII Intact Additional comments: AAO x 2. Awake and alert. Answered questions appropriately. Appears comfortable. - Psychiatric Exam Psychiatric exam: Normal Affect, Normal Mood - Skin Skin Exam: Intact, Normal Color Assessment and Plan - Assessment and Plan (Free Text) Assessment: 71 yo AA female with altered renal function and was poorly responsive at [facility]. The patient was on Vancomycin for antibiotic treatment. Will restart Meropenem and check Vancomycin levels fist given worsening creatinine levels. Local wound care. Still with decreased renal function despite normal values in the early part of June 2017. Likely multiple factors contributing to this including dehydration , poor oral appetite, and use of Vancomycin antibiotics. Unclear if the renal function will recover at this point... it is too early to tell. Recheck creatinine tomorrow. May need to consider Zyvox over Vancomycin for treatment given renal function. Check Vancomycin level tomorrow again. Level currently is 35.4 taken about 24 hours after the last administration of IV Vancomycin. Possible consideration of Zyvox use after Vancomycin levels normalize and if culture still suggest Enterococcus infection. Podiatry had recultured the foot during this hospitalization. Gram negative rods in wound cultures of the foot identified as MDR Acinetobacter. Will check with lab regarding sensitivities to additional antibiotics. The patient had received several days of meropenem. Brought to MICU after being found unresponsive. Severely hypertensive during rapid response. After a few hours in the MICU, the patient is now awake and alert. Continuing on meropenem. The patient has been afebrile and has had no leukocytosis. No new issues overnight. Creatinine stayed at 1.4 today. No leukocytosis (10.1 today). The patient had difficulty breathing mid hospitalization. Antibiotics were switched from meropenem to tigecycline. Patient is still lethargic but more arousable. Hypothermic several nights ago... normal temperatures overnight. Was on Zyvox and Meropenem for IV antibiotics. Awaiting final blood cultures ( coagulase positive cocci in clusters). Was on Tigecycline. The patient improved significantly since started on Tigecycline. VRE in urine and one blood culture. Yeast in urine and one blood culture. Removal or exchange of all indwelling catheters strongly recommended. On Daptomycin for VRE. Awaiting results of [id number] test. Repeat cultures. Vandana in one blood culture. Given QT interval cannot utilized fluconazole, may consider use of Micafungin. Source of fungi likely the PICC line that was used to administer antibiotics (it appears to have been in for 3- 4 months) which the Patient removed herself earlier in this hospitalization. [id number] test pending. One blood culture showing Vandana growth. Supportive care. If Fungitell (Gwss-F-Dhimkg test) negative, may consider stopping Mycamine. Completed Daptomycin and at least a 7 day course of Micafungin. Completed Micafungin. Thank you for allowing me to participate in the care of the patient, we will follow with you.
--- NOTE | 2017-08-03 23:06 | CP.PCM.PN ---
Objective - Vital Signs/Intake and Output Vital Signs (last 24 hours): Temp Pulse Resp BP Pulse Ox 98.4 F 83 20 135/59 L 94 L 08/03/17 14:00 08/03/17 14:48 08/03/17 14:00 08/03/17 14:48 08/03/17 14:00 - Labs Labs: 08/03/17 11:20 08/03/17 11:20 PT 15.1 SECONDS (9.4-12.5) H 07/20/17 09:55 INR 1.31 (0.93-1.08) H 07/20/17 09:55 APTT 37.7 Seconds (25.1-36.5) H 07/20/17 09:55 Assessment and Plan (1) Respiratory failure Status: Acute (2) Hypertension Status: Acute (3) Cellulitis and abscess Status: Acute (4) Sepsis Status: Acute
== END 2017-08-03 20:17 | DRG 862 ==
LOC: ED 21:42 → ERH 07-15 00:47 → 2RNO 07-15 03:19 → OBSVTOIN 07-15 13:39 → CCU 07-20 12:09 → 5RSO 07-28 11:20
PROVIDERS: ADMIT Internal Medicine; ATTEND Internal Medicine
PROC: 02HV33Z Insertion of Infusion Device into Superior Vena Cava, Percutaneous Approach (ICD-10-PCS; principal; 2017-07-22)
PROC: B518ZZA Fluoroscopy of Superior Vena Cava, Guidance (ICD-10-PCS; 2017-07-22)
PROC: 3E03328 Introduction of Oxazolidinones into Peripheral Vein, Percutaneous Approach (ICD-10-PCS; 2017-07-23)
PROC: 5A09457 Assistance with Respiratory Ventilation, 24-96 Consecutive Hours, Continuous Positive Airway Pressure (ICD-10-PCS; 2017-07-23)
PROC: 3E0F7GC Introduction of Other Therapeutic Substance into Respiratory Tract, Via Natural or Artificial Opening (ICD-10-PCS; 2017-07-23)
PROC: 5A1935Z Respiratory Ventilation, Less than 24 Consecutive Hours (ICD-10-PCS; 2017-07-24)
PROC: 0BH17EZ Insertion of Endotracheal Airway into Trachea, Via Natural or Artificial Opening (ICD-10-PCS; 2017-07-24)
DX: T81.4XXA Infection following a procedure, initial encounter (principal); A41.9 Sepsis, unspecified organism; N17.0 Acute kidney failure with tubular necrosis; J96.01 Acute respiratory failure with hypoxia; G93.41 Metabolic encephalopathy; N39.0 Urinary tract infection, site not specified; L03.116 Cellulitis of left lower limb; M86.9 Osteomyelitis, unspecified; L02.612 Cutaneous abscess of left foot; J81.1 Chronic pulmonary edema; N18.3 Chronic kidney disease, stage 3 (moderate); E11.621 Type 2 diabetes mellitus with foot ulcer; L97.529 Non-pressure chronic ulcer of other part of left foot with unspecified severity; E11.51 Type 2 diabetes mellitus with diabetic peripheral angiopathy without gangrene; I12.9 Hypertensive chronic kidney disease with stage 1 through stage 4 chronic kidney disease, or unspecified chronic kidney disease; E86.0 Dehydration; E78.00 Pure hypercholesterolemia, unspecified; D63.8 Anemia in other chronic diseases classified elsewhere; E11.65 Type 2 diabetes mellitus with hyperglycemia; F03.90 Unspecified dementia, unspecified severity, without behavioral disturbance, psychotic disturbance, mood disturbance, and anxiety; E11.69 Type 2 diabetes mellitus with other specified complication; E87.70 Fluid overload, unspecified; I27.20 Pulmonary hypertension, unspecified; E11.22 Type 2 diabetes mellitus with diabetic chronic kidney disease; E87.6 Hypokalemia; R80.9 Proteinuria, unspecified; H54.8 Legal blindness, as defined in USA; Z16.24 Resistance to multiple antibiotics; Y83.5 Amputation of limb(s) as the cause of abnormal reaction of the patient, or of later complication, without mention of misadventure at the time of the procedure; Z89.422 Acquired absence of other left toe(s); Z91.19 Patient's noncompliance with other medical treatment and regimen; Z78.1 Physical restraint status; Z78.9 Other specified health status

== ENCOUNTER 2017-08-17 17:06 | Inpatient (IN) | payer MEDICARE ==
--- NOTE | 2017-08-17 17:38 | ED PDOC ---
Arrival/HPI - General Time Seen by Provider: 08/17/17 17:10 Historian: Patient, Half-Way - History of Present Illness Narrative History of Present Illness (Text): 08/17/17 17:33 Patient is a 71 year old female whose past medical history includes diabetes, hypertension, and left foot gangrene, who presents to the emergency department for blood transfusion due to hemoglobin of 7. Patient lives at [facility] and today her hemoglobin was found to be low. She was subsequently sent to [facility] emergency department for blood transfusion. Patient denies any lightheadedness, dizziness, fatigue, weakness, or any other complaints. Time/Duration: Prior to Arrival Context: Home Past Medical History - Provider Review Nursing Documentation Reviewed: Yes - Infectious Disease Hx of Infectious Diseases: None - Cardiac Hx Cardiac Disorders: Yes Hx Hypertension: Yes - Pulmonary Hx Respiratory Disorders: No - Neurological Hx Dementia: Yes - HEENT Hx HEENT Disorder: No - Renal Hx Renal Disorder: No - Endocrine/Metabolic Hx Diabetes Mellitus Type 2: Yes Hx Hypothyroidism: Yes - Hematological/Oncological Hx Blood Disorders: No - Integumentary Hx Dermatological Disorder: Yes - Musculoskeletal/Rheumatological Hx Musculoskeletal Disorders: Yes Hx Falls: Yes - Gastrointestinal Hx Gastrointestinal Disorders: No - Genitourinary/Gynecological Hx Hematuria: Yes Hx Incontinence: Yes Hx Urinary Tract Infection: Yes - Psychiatric Hx Psychophysiologic Disorder: No Hx Substance Use: No - Surgical History Other/Comment: labial abscess removed-incision and drainage. left leg. left foot. 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 - Anesthesia Hx Anesthesia: Yes Hx Anesthesia Reactions: No - Suicidal Assessment Feels Threatened In Home Enviroment: No Family/Social History - Physician Review Nursing Documentation Reviewed: Yes Family/Social History: No Known Family HX Smoking Status: Never Smoked Hx Alcohol Use: No Hx Substance Use: No Allergies/Home Meds Allergies/Adverse Reactions: Allergies nifedipine Adverse Reaction (Severe, Verified 07/29/17 19:31) hypotension, bradycardia, CHF Home Medications: Home Meds Medication Instructions Recorded Confirmed Aspirin [Chambers Aspirin] 81 mg PO DAILY 06/28/17 08/17/17 Clopidogrel [Plavix] 75 mg PO DAILY 06/28/17 08/17/17 oxyCODONE/Acetaminophen [Percocet 1 tab PO Q6H PRN 06/28/17 08/17/17 5/325 mg Tab] hydrALAZINE [Apresoline] 50 mg PO Q8H 08/17/17 08/17/17 Review of Systems - Physician Review All systems were reviewed & negative as marked: Yes - Review of Systems Constitutional: absent: Fatigue Neurological: absent: Dizziness Physical Exam Vital Signs Reviewed: Yes Vital Signs Temp Pulse Resp BP Pulse Ox 08/17/17 20:35 98.2 F 89 18 147/75 100 08/17/17 20:12 93 H 18 147/75 97 08/17/17 17:27 98.2 F 99 H 18 123/45 L 97 Temperature: Afebrile Blood Pressure: Normal Pulse: Regular Respiratory Rate: Normal Appearance: Positive for: Well-Appearing Mental Status: Positive for: Alert and Oriented X 3 - Systems Exam Head: Present: Atraumatic, Normocephalic Pupils: Present: PERRL Extroacular Muscles: Present: EOMI Conjunctiva: Present: Normal (pink) Mouth: Present: Moist Mucous Membranes Neck: Present: Normal Range of Motion Respiratory/Chest: Present: Clear to Auscultation, Good Air Exchange. No: Respiratory Distress, Accessory Muscle Use Cardiovascular: Present: Regular Rate and Rhythm, Normal S1, S2. No: Murmurs Abdomen: No: Tenderness, Distention, Peritoneal Signs Rectal: No: Occult Blood, Hemorrhoids, Fissures Back: Present: Normal Inspection Upper Extremity: Present: Normal Inspection. No: Cyanosis, Edema Lower Extremity: Present: Other (Superficial ulcer of lateral side of left foot , approximately 2in x 1in, healing with no drainage). No: Edema Neurological: Present: GCS=15, CN II-XII Intact, Speech Normal Skin: Present: Warm, Dry, Normal Color. No: Rashes Psychiatric: Present: Alert, Oriented x 3, Normal Insight, Normal Concentration Medical Decision Making ED Course and Treatment: 08/17/17 17:43 Impression: Patient is a 71 year old female who was sent to the emergency department for blood transfusion s/p hemoglobin 7. Differential Diagnosis included but are not limited to: Anemia Plan: --labs --IV fluids --Chest X-ray -- Reassess and disposition Prior Visits: Notes and results from previous visits were reviewed. Progress Notes: 08/17/17 19:20 Chest X-ray shows no acute disease. Interpreted by me. Guaic negative. Patient denies any rectal bleeding that she's aware of. Hgb low at 7. Transfusion of 2 units of PRBCs ordered. Consent obtained and co-signed by CAIN Ybarra. Patient made aware and understands risks of transfusion. Discussed case with Dr. Gilman who recommends GI consult as well. Placed a consult with Dr. Vann for GI. - Lab Interpretations Lab Results: 08/17/17 18:59 08/17/17 18:59 Lab Results 08/17/17 19:33: Blood Type A POSITIVE, Antibody Screen Negative, Crossmatch See Detail, BBK History Checked Patient has bt 08/17/17 18:59: Blood Type Cancelled, Antibody Screen Cancelled, BBK History Checked Cancelled 08/17/17 18:59: Sodium 145, Potassium 4.4, Chloride 109 H, Carbon Dioxide 22, Anion Gap 18, BUN 35 H, Creatinine 1.3 H, Est GFR ( Amer) 49, Est GFR ( Non-Af Amer) 40, Random Glucose 155 H, Calcium 8.6, Total Bilirubin 0.1 L, AST 24, ALT 33, Alkaline Phosphatase 100, Total Protein 6.7, Albumin 3.4, Globulin 3.3, Albumin/Globulin Ratio 1.0 L 08/17/17 18:59: PT 12.0, INR 1.05, APTT 27.4 08/17/17 18:59: WBC 8.3 D, RBC 2.90 L, Hgb 7.4 L, Hct 23.7 L, MCV 81.7, MCH 25.5, MCHC 31.2, RDW 17.7 H, Plt Count 364, MPV 10.0, Gran % 60.2, Lymph % (Auto ) 26.6, [place] % (Auto) 10.3 H, Eos % (Auto) 2.4, Baso % (Auto) 0.5, Gran # 4.99, Lymph # (Auto) 2.2, [place] # (Auto) 0.9 H, Eos # (Auto) 0.2, Baso # (Auto) 0.04 I have reviewed the lab results: Yes - RAD Interpretation Radiology Orders: 08/17/17 18:52 CXR [CHEST PORTABLE] [RAD] Stat Congregational Care Pastor: ED Physician - Medication Orders Current Medication Orders: Discontinued Medications Sodium Chloride (Sodium Chloride 0.9%) 500 mls @ 999 mls/hr IV .Q31M STA Stop: 08/17/17 18:24 Last Admin: 08/17/17 18:56 Dose: 999 mls/hr eMAR Start Stop Document 08/17/17 18:56 HI (Rec: 08/17/17 18:56 [email or web address]) Intravenous Solution Start Date 08/17/17 Start Time 18:56 Pantoprazole Sodium (Protonix Inj) 80 mg IVP STAT STA Stop: 08/17/17 19:59 Last Admin: 08/17/17 20:18 Dose: 80 mg IVP Administration Document 08/17/17 20:18 HI (Rec: 08/17/17 20:18 [email or web address]) Charges for Administration # of IVP Administrations 2 - Scribe Statement The provider has reviewed the documentation as recorded by the Scribe Sky Arambula Provider Scribe Attestation: All medical record entries made by the Scribe were at my direction and personally dictated by me. I have reviewed the chart and agree that the record accurately reflects my personal performance of the history, physical exam, medical decision making, and the department course for this patient. I have also personally directed, reviewed, and agree with the discharge instructions and disposition. Disposition/Present on Arrival - Present on Arrival Any Indicators Present on Arrival: Yes History of DVT/PE: No History of Uncontrolled Diabetes: Yes Urinary Catheter: No History Surgical Site Infection Following: None - Disposition Have Diagnosis and Disposition been Completed?: Yes Diagnosis: Anemia Disposition: HOSPITALIZED Disposition Time: 19:40 Patient Plan: Admission Condition: FAIR
[2017-08-17 17:44] VITALS: BMI 32.3
[2017-08-17] MEDS ORDERED: Sodium Chloride 0.9% 500 ML IV STA (17:54)
[2017-08-17 19:20] LABS: ALBUMIN 3.4 g/dL (3.0-4.8); CALCIUM 8.6 mg/dL (8.4-10.5)
[2017-08-17 19:22] LABS: BASO # 0.04 K/mm3 (0.0-2.0); BASO % 0.5 % (0.0-3.0); EOS # 0.2 (0.0-0.7); EOS % 2.4 % (1.5-5.0); GRAN # 4.99 (1.4-6.5); GRAN % 60.2 % (50.0-68.0); HEMOGLOBIN 7.4 g/dL (12.0-16.0); LYMPH # 2.2 (1.2-3.4); LYMPH % 26.6 % (22.0-35.0); MEAN CELL VOLUME 81.7 fl (80.0-105.0); MEAN CORPUSCULAR HEMOGLOBIN 25.5 pg (25.0-35.0); MEAN CORPUSCULAR HGB CONC 31.2 g/dl (31.0-37.0); MONO # 0.9 (0.1-0.6); MONO % 10.3 % (1.0-6.0); RBC 2.9 10^6/uL (3.5-6.1); RED CELL DISTRIBUTION WIDTH 17.7 % (11.5-14.5); WHITE BLOOD COUNT 8.3 10^3/ul (4.5-11.0)
[2017-08-17 19:26] LABS: INR 1.05 (0.93-1.08); PARTIAL THROMBOPLASTIN TIME 27.4 Seconds (25.1-36.5)
[2017-08-18] MEDS: Insulin Detemir 100 units/ml Vial (Levemir) SC SCH ×2 (01:38→22:00)
[2017-08-18] MEDS: Insulin Reg-LOW-Coverage SC SCH ×5 (01:38→22:00)
[2017-08-18] MEDS ORDERED: Barium Sulfate Susp 2.1% w/v, 2.0% w/w 450 mL Bottle PO ONE (08:01)
[2017-08-18 08:38] LABS: BASO # 0.03 K/mm3 (0.0-2.0); BASO % 0.4 % (0.0-3.0); EOS # 0.2 (0.0-0.7); EOS % 2.1 % (1.5-5.0); GRAN # 4.61 (1.4-6.5); GRAN % 59.1 % (50.0-68.0); HEMOGLOBIN 9.2 g/dL (12.0-16.0); LYMPH # 2.2 (1.2-3.4); LYMPH % 28.6 % (22.0-35.0); MEAN CELL VOLUME 81.7 fl (80.0-105.0); MEAN CORPUSCULAR HEMOGLOBIN 26.4 pg (25.0-35.0); MEAN CORPUSCULAR HGB CONC 32.3 g/dl (31.0-37.0); MEAN PLATELET VOLUME 9.5 fl (7.0-11.0); MONO # 0.8 (0.1-0.6); MONO % 9.8 % (1.0-6.0); RBC 3.49 10^6/uL (3.5-6.1); RED CELL DISTRIBUTION WIDTH 16.8 % (11.5-14.5); WHITE BLOOD COUNT 7.8 10^3/ul (4.5-11.0)
--- NOTE | 2017-08-18 08:57 | RAD ---
HISTORY: admission COMPARISON: 07/25/2017 FINDINGS: LUNGS: Diffuse increased opacity right sohail thorax. Questionable artifact versus diffuse infiltrate. Followup advised. No focal consolidation. PLEURA: No significant pleural effusion identified, no pneumothorax apparent. CARDIOVASCULAR: Normal. OSSEOUS STRUCTURES: No significant abnormalities. VISUALIZED UPPER ABDOMEN: Normal. OTHER FINDINGS: None. IMPRESSION: Diffuse increased opacity right sohail thorax. Question artifact versus diffuse infiltrate. Follow-up advised.
[2017-08-18 09:08] LABS: IRON 94 ug/dL (45-180)
[2017-08-18 09:18] LABS: % IRON SATURATION 38 % (20-55); TOTAL IRON BINDING CAPACITY 249 ug/dL (265-497)
--- NOTE | 2017-08-18 09:52 | CON ---
DATE: 08/18/2017 HISTORY OF PRESENT ILLNESS: Ms. Abbott is a 71-year-old female, admitted to the hospital for blood transfusion from [facility]. She had required blood transfusion previously also on several occasions. She has a history of diabetes mellitus and hypertension. History of left foot gangrene. Complaining of lightheadedness. No bleeding from any site. PAST MEDICAL HISTORY: Hypertension, dementia, diabetes mellitus type 2, history of recurrent falls, hematuria. PAST SURGICAL HISTORY: Abscess drainage, amputation of left third and fourth digits. PERSONAL HISTORY: Never smoked. FAMILY HISTORY: Noncontributory. REVIEW OF SYSTEMS: As per HPI. Rest of 12-point review of systems reviewed negative. ALLERGIES: NIFEDIPINE, HYPOTENSION, BRADYCARDIA, CHF. HOME MEDICATIONS: Aspirin 81 mg daily, Plavix 75 mg daily, oxycodone, Percocet p.r.n., hydralazine 50 mg p.o. every 8 hours. PHYSICAL EXAMINATION: GENERAL: Comfortable in bed, in no acute distress. VITAL SIGNS: Temperature 98.7, heart rate 80 per minute, blood pressure 147/75, pulse ox is 100% on room air. HEENT: Pallor positive. NECK: No lymphadenopathy. CHEST: Air entry present and equal bilateral. No added sound. CARDIOVASCULAR: S1, S2 normal. No murmur. No gallop. ABDOMEN: Soft, nontender. No hepatosplenomegaly. EXTREMITY: No edema. SHIPPING TRACK SUPERVISOR: Alert and oriented x3. No focal sensorimotor deficit. LABORATORY DATA: White count 8.3, hemoglobin 7.4, hematocrit 23.7, platelets 364. Sodium 145, potassium 4.4, BUN 35, creatinine 1.3, glucose 155. Repeat hemoglobin today is 9.2 status post 2 units of blood transfusion. ASSESSMENT: 1. Chronic anemia. 2. Rule out gastrointestinal bleed. 3. Chronic kidney disease. 4. Diabetes mellitus type 2. 5. Hypertension. PLAN: We will do the workup for anemia. Review of entire medical record on [facility] reviewed. Review of records showed she has anemia since 2016. Has been transfused chronically. Iron studies, B12, folate level ordered. Serum protein electrophoresis, immunofixation ordered. Stool occult blood to be done. GI consultation, Dr. Walter has already been requested. There is a possibility of myelodysplasia leading to chronic anemia, likely refractory anemia, ring sideroblasts. Creatinine is elevated at 1.3. Anemia might be related to chronic kidney disease also. She might need erythropoietin support to maintain the normal hemoglobin. We will wait iron studies to see if she has iron deficiency also. Diabetes mellitus controlled with current medications. We will give further recommendation after the blood work results. Thank you, Dr. Gilman for allowing us to participate in Ms. Abbott katherine. Venus Jimenez MD
--- NOTE | 2017-08-18 10:58 | CT ---
PROCEDURE: CT Abdomen and Pelvis without intravenous contrast HISTORY: anemia, r.o mass COMPARISON: None. TECHNIQUE: Without contrast.. Contrast dose: Radiation dose: Total exam DLP = 806 mGy-cm. This CT exam was performed using one or more of the following dose reduction techniques: Automated exposure control, adjustment of the mA and/or kV according to patient size, and/or use of iterative reconstruction technique. FINDINGS: LOWER THORAX: There is some linear atelectasis or scarring at the left lung base LIVER: Unremarkable. No gross lesion or ductal dilatation. GALLBLADDER AND BILE DUCTS: The gallbladder is mildly distended. There is some layering of dense sludge. PANCREAS: Unremarkable. No gross lesion or ductal dilatation. SPLEEN: Unremarkable. ADRENALS: Unremarkable. No mass. KIDNEYS AND URETERS: Unremarkable. No hydronephrosis. No solid mass. VASCULATURE: Unremarkable. No aortic aneurysm. BOWEL: Unremarkable. No obstruction. No gross mural thickening. APPENDIX: Unremarkable. Normal appendix. PERITONEUM: Unremarkable. No free fluid. No free air. LYMPH NODES: Unremarkable. No enlarged lymph nodes. BLADDER: Unremarkable. REPRODUCTIVE: Unremarkable. BONES: No acute fracture. OTHER FINDINGS: None. IMPRESSION: No acute intra-abdominal findings. No evidence of intra-abdominal mass
[2017-08-18] MEDS ORDERED: Dextrose 5%/0.45% NS 1,000 ML IV SCH (11:15)
--- NOTE | 2017-08-18 16:27 | CP.PCM.CON ---
<Marcie Benz - Last Filed: 08/18/17 16:27> History of Present Illness - History of Present Illness History of Present Illness: Seen and examined at the bedside today, chart reviewed. Request for GI consult is Anemia. HPI: This is a 71-year-old female with a PMH of hypertension, diabetes mellitus , left foot gangrene, dementia, came from [facility] after discovering patient had low hemaglobin. , she was found to have hgb of 7.4. She does have h/o of previous blood transfusions. This patient has history of dementia and is poor historian but history obtained from medical chart and staff. Patient currently denies nausea, vomiting,abdominal pain. SOB or chest pain, no c/o anorexia wt loss. Patient is status post, hematemesis or bright red b guaiac negative in the In review of patient's chart no previous endoscopies or colonoscopies are noted. The patient is on aspirin and Plavix, unclear if this is for coronary artery disease.patient sent for CT scan, unable to tolerate oral , report reviewed no acute findings. Past medical history: Hypertension, dementia, hypothyroidism, sacral decubitus, recurrent falls Past surgical history: Lobule abscess I&D, amputation of left foot: third and fourth digit, PICC line Family history: Noncontributory Social history: No history of tobacco, EtOH or drugs Allergies:Nifedipine Medications: Significant for aspirin and Plavix, MAR reviewed. ROS: systems reviewed with posotive findings, see HPI Past Patient History - Infectious Disease Hx of Infectious Diseases: None - Past Medical History & Family History Past Medical History?: Yes - Past Social History Smoking Status: Never Smoked - CARDIAC Hx Cardiac Disorders: Yes Hx Hypertension: Yes - PULMONARY Hx Respiratory Disorders: No - NEUROLOGICAL Hx Dementia: Yes - HEENT Hx HEENT Problems: No - RENAL Hx Chronic Kidney Disease: No - ENDOCRINE/METABOLIC Hx Diabetes Mellitus Type 2: Yes Hx Hypothyroidism: Yes - HEMATOLOGICAL/ONCOLOGICAL Hx Blood Disorders: No - INTEGUMENTARY Hx Dermatological Problems: Yes - MUSCULOSKELETAL/RHEUMATOLOGICAL Hx Musculoskeletal Disorders: Yes Hx Falls: Yes - GASTROINTESTINAL Hx Gastrointestinal Disorders: No - GENITOURINARY/GYNECOLOGICAL Hx Hematuria: Yes Hx Incontinence: Yes Hx Urinary Tract Infection: Yes - PSYCHIATRIC Hx Psychophysiologic Disorder: No Hx Substance Use: No - SURGICAL HISTORY Other/Comment: labial abscess removed-incision and drainage. left leg. left foot. 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 - ANESTHESIA Hx Anesthesia: Yes Hx Anesthesia Reactions: No Meds Allergies/Adverse Reactions: Allergies Allergy/AdvReac Type Severity Reaction Status Date / Time nifedipine AdvReac Severe hypotension, Verified 07/29/17 19:31 bradycardia, CHF - Medications Medications: Current Medications Amlodipine Besylate (Norvasc) 10 mg PO DAILY [facility] Last Admin: 08/18/17 10:02 Dose: 10 mg Aspirin (Aspirin Chewable) 81 mg PO DAILY [facility] Last Admin: 08/18/17 10:41 Dose: Not Given Atorvastatin Calcium (Lipitor) 40 mg PO DIN [facility] Carvedilol (Coreg) 25 mg PO Q12 [facility] Last Admin: 08/18/17 10:02 Dose: 25 mg Clopidogrel Bisulfate (Plavix) 75 mg PO DAILY [facility] Ferrous Sulfate (Feosol) 324 mg PO BID [facility] Last Admin: 08/18/17 10:02 Dose: 324 mg Hydralazine HCl (Apresoline) 50 mg PO Q8H [facility] Last Admin: 08/18/17 06:27 Dose: 50 mg Dextrose/Sodium Chloride (Dextrose 5%/0.45% Ns 1000 Ml) 1,000 mls @ 60 mls/hr IV .[id number] [facility] Insulin Detemir (Levemir) 10 unit SC HS [facility] Last Admin: 08/18/17 01:38 Dose: Not Given Insulin Human Regular (Humulin R Low) 0 units SC ACHS [facility] PRN Reason: Protocol Last Admin: 08/18/17 08:21 Dose: Not Given Pantoprazole Sodium (Protonix Inj) 40 mg IVP Q12 [facility] Last Admin: 08/18/17 10:01 Dose: 40 mg Physical Exam - Constitutional Appears: No Acute Distress - Head Exam Head Exam: NORMOCEPHALIC - Eye Exam Eye Exam: Normal appearance. absent: Scleral icterus - ENT Exam ENT Exam: Mucous Membranes Moist - Neck Exam Neck exam: Positive for: Normal Inspection - Respiratory Exam Respiratory Exam: Decreased Breath Sounds, NORMAL BREATHING PATTERN. absent: Rales, Wheezes, Respiratory Distress - Cardiovascular Exam Cardiovascular Exam: +S1, +S2 - GI/Abdominal Exam GI & Abdominal Exam: Normal Bowel Sounds, Soft. absent: Guarding, Organomegaly , Rebound, Tenderness - Extremities Exam Extremities exam: Negative for: calf tenderness, pedal edema - Neurological Exam Neurological exam: Alert, Oriented x3 (forgetful) - Skin Skin Exam: Dry, Warm Results - Vital Signs Recent Vital Signs: Last Vital Signs Temp 98.2 F 08/18/17 06:52 Pulse 89 08/18/17 10:02 Resp 18 08/18/17 06:52 BP 161/74 H 08/18/17 10:02 Pulse Ox 99 08/18/17 06:00 - Labs Result Diagrams: 08/18/17 08:20 08/17/17 18:59 Labs: Laboratory Results - last 24 hr 08/17/17 08/18/17 08/18/17 21:24 08:00 08:09 WBC RBC Hgb Hct MCV MCH MCHC RDW Plt Count MPV Gran % Lymph % (Auto) [place] % (Auto) Eos % (Auto) Baso % (Auto) Gran # Lymph # (Auto) [place] # (Auto) Eos # (Auto) Baso # (Auto) POC Glucose (mg/dL) 130 H 102 Iron 94 TIBC 249 L % Saturation 38 08/18/17 08/18/17 08:20 11:05 WBC 7.8 RBC 3.49 L Hgb 9.2 L Hct 28.5 L MCV 81.7 MCH 26.4 MCHC 32.3 RDW 16.8 H Plt Count 311 MPV 9.5 Gran % 59.1 Lymph % (Auto) 28.6 [place] % (Auto) 9.8 H Eos % (Auto) 2.1 Baso % (Auto) 0.4 Gran # 4.61 Lymph # (Auto) 2.2 [place] # (Auto) 0.8 H Eos # (Auto) 0.2 Baso # (Auto) 0.03 POC Glucose (mg/dL) 99 Iron TIBC % Saturation Assessment & Plan - Assessment and Plan (Free Text) Assessment: Assessment: Anemia, rule out angiodysplasia, peptic u, mass Hypertension Diabetes mellitus Hypothyroidism Sacral decubitus PLAN: monitor H/H and for overt GIB hold for now Aspirin and Plavix NPO start IVF, see orders plan for EGD 08/19/17 continue PPI on Iron supplement hematology following Thank you for this consult and for allowing us to participate in your patient care, further recommendation based upon clinical course. Seen and discussed w/ Dr. Walter. <Rosaura Walter V - Last Filed: 08/19/17 01:09> Meds - Medications Medications: Current Medications Amlodipine Besylate (Norvasc) 10 mg PO DAILY [facility] Last Admin: 08/18/17 10:02 Dose: 10 mg Aspirin (Aspirin Chewable) 81 mg PO DAILY [facility] Last Admin: 08/18/17 10:41 Dose: Not Given Atorvastatin Calcium (Lipitor) 40 mg PO DIN [facility] Last Admin: 08/18/17 18:10 Dose: Not Given Carvedilol (Coreg) 25 mg PO Q12 [facility] Last Admin: 08/18/17 22:15 Dose: 25 mg Clopidogrel Bisulfate (Plavix) 75 mg PO DAILY [facility] Ferrous Sulfate (Feosol) 324 mg PO BID [facility] Last Admin: 08/18/17 18:10 Dose: Not Given Hydralazine HCl (Apresoline) 50 mg PO Q8H [facility] Last Admin: 08/18/17 22:09 Dose: 50 mg Dextrose/Sodium Chloride (Dextrose 5%/0.45% Ns 1000 Ml) 1,000 mls @ 60 mls/hr IV .[id number] [facility] Last Admin: 08/18/17 12:00 Dose: Not Given Insulin Detemir (Levemir) 10 unit SC HS [facility] Last Admin: 08/18/17 01:38 Dose: Not Given Insulin Human Regular (Humulin R Low) 0 units SC [facility] PRN Reason: Protocol Last Admin: 08/18/17 17:51 Dose: Not Given Pantoprazole Sodium (Protonix Inj) 40 mg IVP Q12 [facility] Last Admin: 08/18/17 22:09 Dose: 40 mg Results - Vital Signs Recent Vital Signs: Last Vital Signs Temp 98.8 F 08/18/17 17:10 Pulse 80 08/18/17 22:15 Resp 18 08/18/17 17:10 BP 150/80 08/18/17 22:15 Pulse Ox 98 08/18/17 17:10 - Labs Result Diagrams: 08/18/17 08:20 08/17/17 18:59 Labs: Laboratory Results - last 24 hr 08/17/17 08/18/17 08/18/17 21:24 08:00 08:00 WBC RBC Hgb Hct MCV MCH MCHC RDW Plt Count MPV Gran % Lymph % (Auto) [place] % (Auto) Eos % (Auto) Baso % (Auto) Gran # Lymph # (Auto) [place] # (Auto) Eos # (Auto) Baso # (Auto) POC Glucose (mg/dL) 130 H Iron 94 TIBC 249 L % Saturation 38 Ferritin 309.0 Vitamin B12 357 08/18/17 08/18/17 08/18/17 08:09 08:20 11:05 WBC 7.8 RBC 3.49 L Hgb 9.2 L Hct 28.5 L MCV 81.7 MCH 26.4 MCHC 32.3 RDW 16.8 H Plt Count 311 MPV 9.5 Gran % 59.1 Lymph % (Auto) 28.6 [place] % (Auto) 9.8 H Eos % (Auto) 2.1 Baso % (Auto) 0.4 Gran # 4.61 Lymph # (Auto) 2.2 [place] # (Auto) 0.8 H Eos # (Auto) 0.2 Baso # (Auto) 0.03 POC Glucose (mg/dL) 102 99 Iron TIBC % Saturation Ferritin Vitamin B12 08/18/17 08/18/17 17:48 21:19 WBC RBC Hgb Hct MCV MCH MCHC RDW Plt Count MPV Gran % Lymph % (Auto) [place] % (Auto) Eos % (Auto) Baso % (Auto) Gran # Lymph # (Auto) [place] # (Auto) Eos # (Auto) Baso # (Auto) POC Glucose (mg/dL) 107 136 H Iron TIBC % Saturation Ferritin Vitamin B12 Attending/Attestation - Attestation I have personally seen and examined this patient.: Yes I have fully participated in the care of the patient.: Yes I have reviewed all pertinent clinical information: Yes Notes (Text): This is an addendum to GI consult report dictated by Marcie Benz APN.The patient was seen and examined earlier. Medical records, lab studies, imagings were reviewed. Last 24 hours events reviewed. Agreed with the above treatment plan as outlined in Marcie Benz APN's notes the with the addition of the following on examination abdomen soft ,no tenderness patient is on Plavix and aspirin Review CT of the abdomen and pelvis Consider EGD diagnostic We will discuss with Dr. Gilman 08/19/17 01:07
--- NOTE | 2017-08-18 21:48 | PN ---
DATE: 08/18/2017 SUBJECTIVE: Patient is a 71-year-old female. Patient is seen and examined at the bedside, looking comfortable. No nausea, vomiting, or diarrhea. No hematuria or hematochezia. No headache, no dizziness. No chest pain, no palpitation. PHYSICAL EXAMINATION: VITAL SIGNS: Temperature 98.8, pulse 74, blood pressure 150/80, respiratory rate 18. HEENT: Head: Normocephalic, atraumatic. Eyes: PERRLA. Extraocular muscles intact. Conjunctivae clear. Nose: Patent. NECK: Supple. No carotid bruit. No JVD or thyromegaly. CHEST: Bilaterally symmetrical. HEART: S1 and S2 positive. LUNGS: Clear to auscultation. ABDOMEN: Soft. Bowel sounds positive. No organomegaly. EXTREMITIES: No edema. No cyanosis. NEUROLOGIC Patient is awake and alert, obeying simple orders. MEDICATIONS: Hydralazine, aspirin, Coreg, dextrose, iron, insulin, Lipitor, amlodipine, Plavix, Protonix. LABORATORY DATA: White blood cell 7.8, hemoglobin 9.2, hematocrit 28.5, on admission hemoglobin was 7.4, platelets 311. Glucose 103, 99, 102. Iron binding capacity is 249. ASSESSMENT AND PLAN: Ms. Tamy Abbott is a 71-year-old lady with anemia of chronic disease,status post blood transfusion, hyperchloremia, renal insufficiency. Had CAT scan of abdomen and pelvis. History of hypertension, dementia, hyperthyroidism, sacral decubitus ulcer, recurrent falls, history of lobule abscess, incision and drainage, amputation of the left third and fourth digits, peripherally inserted central catheter line. Bracelet And Brooch Maker is on the case. GI is on the case. Rule out angiodysplasia, peptic ulcer disease, mass. Monitor hemoglobin and hematocrit for overt gastrointestinal bleeding. Holding her aspirin and Plavix. N.p.o. Start IV fluids. Plan for esophagogastroduodenoscopy on 08/19/2017. Continue proton pump inhibitor and iron supplementation. Gastrointestinal and deep vein thrombosis prophylaxis. Appreciated Dr. Walter's input. We will follow up. Deisy Gilman MD [facility] # [id number]
--- NOTE | 2017-08-19 03:15 | CON ---
DATE: 08/18/2017 REFERRING PHYSICIAN: Dr. Deisy Gilman. REASON FOR CONSULT: Shortness of breath, anemia. HISTORY OF PRESENT ILLNESS: This is a 71-year-old female with history of diabetes, hypertension, history of anemia requiring transfusion in the past, foot gangrene. She is a longterm resident brought in because of shortness of breath, lightheadedness, fatigue. She was transfused. Presently, she is n.p.o. Apparently, this morning, she vomit even during the x-ray, could not tolerate p.o. contrast material. Feels hungry, wants to eat though. No hemoptysis. No hematemesis. No melena. No leg pain or leg swelling. PAST MEDICAL HISTORY: Hypertension, diabetes, foot gangrene and anemia. Has a history of hematuria in the past, UTI, history of labial abscess drained, status post amputation of the left third and fourth digits. FAMILY HISTORY: No significant cardiopulmonary disease reported. SOCIAL HISTORY: Nonsmoker. Nondrinker. ALLERGIES: TO NIFEDIPINE. MEDICATIONS: She is on hydralazine 50 mg every 8 hours, aspirin 81 mg daily, Coreg 25 mg every 12 hours, IV fluid, half normal saline at 60 mL/hour, ferrous sulfate 325 mg twice a day, insulin coverage, Levemir 10 units subcutaneous at bedtime, Lipitor 40 mg daily, Norvasc 10 mg daily, Plavix 75 mg daily, Protonix 40 mg every 12 hours. Plavix been on hold. REVIEW OF SYSTEM: No headache. No rhinitis. Had nausea and vomiting. No chest pain. Denies any abdominal pain. No diarrhea. No dysuria. No melena. No leg pain or leg swelling. PHYSICAL EXAMINATION GENERAL: In no acute distress. VITAL SIGNS: Temperature is 98, heart rate is 74, respiratory rate is 20, blood pressure 150/80, pulse ox 98% on room air. HEENT: Moist mucous membrane. No crowded airway. Mallampati score is 4. NECK: Supple. No JVD. LUNGS: Had a fair airflow with rhonchi. HEART: S1 and S2. ABDOMEN: Soft, nontender. No organomegaly. EXTREMITIES: No edema. NEUROLOGICAL: Awake and alert, follows simple command. LABORATORY DATA: Shows hemoglobin on admission at 7.4, this morning is 9.2. Hematocrit 28.5. WBC is 7.8, platelet is 311. INR is 1.05, PTT 27, iron is 94, TIBC 249, ferritin 309, vitamin B12 is 357. Sodium 145, potassium 4.4, chloride 109, bicarbonate 22, BUN 35, creatinine 1.3. AST 24, ALT 33, alkaline phosphatase is 100, albumin is 3.4. He had a CAT scan of the abdomen and pelvis done today which shows no acute intraabdominal finding. No evidence of intraabdominal mass. IMPRESSION AND PLAN: Severe anemia, symptomatic with shortness of breath, lightheadedness, history of hypertension, diabetes, hypothyroid, history of sacral ulcer. Pulmonary point of view, she is okay. Probably short of breath secondary to severe anemia. There is opacity in the right hemithorax. We will repeat the chest x-ray, clinically seems okay. Continue hematology and GI followup. Thank you and we will follow with you. Alayna Terry MD
[2017-08-19 08:16] LABS: ALBUMIN 3.2 g/dL (3.0-4.8)
[2017-08-19 08:43] LABS: HEMOGLOBIN 9.9 g/dL (12.0-16.0); MEAN CELL VOLUME 81.3 fl (80.0-105.0); MEAN CORPUSCULAR HEMOGLOBIN 26.1 pg (25.0-35.0); MEAN CORPUSCULAR HGB CONC 32.1 g/dl (31.0-37.0); MEAN PLATELET VOLUME 9.8 fl (7.0-11.0); RBC 3.79 10^6/uL (3.5-6.1); RED CELL DISTRIBUTION WIDTH 17.1 % (11.5-14.5); WHITE BLOOD COUNT 8.1 10^3/ul (4.5-11.0)
[2017-08-19] MEDS: Insulin Reg-LOW-Coverage SC SCH ×4 (08:59→22:01)
[2017-08-19 10:25] LABS: ALBUMIN (PEP) 2.8 g/dL (3.8-4.8); ALPHA-1-GLOBULIN (PEP) 0.4 g/dL (0.2-0.3)
--- NOTE | 2017-08-19 13:55 | RAD ---
HISTORY: infiltrate COMPARISON: 08/17/2017 FINDINGS: LUNGS: No active pulmonary disease. PLEURA: No significant pleural effusion identified, no pneumothorax apparent. CARDIOVASCULAR: Mild cardiomegaly. Mild vascular congestion OSSEOUS STRUCTURES: No significant abnormalities. VISUALIZED UPPER ABDOMEN: Normal. OTHER FINDINGS: None. IMPRESSION: Mild cardiomegaly. Mild vascular congestion
--- NOTE | 2017-08-19 14:04 | PQF DECUBI ---
This form is a permanent part of the medical record Clarification of your documentation is requested to better reflect the severity of illness and intensity of treatment of your patient. Indicators present [] Documented diagnosis of decubitus/pressure ulcer Location in the medical record that reflects the above clinical findings: [] See Wound Assessment 08/18. to note the Stage of sacral decubitus POA " 2 Stage 3 sacral ulcers found on b/l upper glutes " Please note this in your PN & D/C summary Treatment Provided: PHYSICIAN'S RESPONSE Based on your medical judgment can you define the stage of the decubitus/ pressure ulcer as: Present On Admission [] Stage 1 Pressure Ulcer: Specify Location: [] Yes [] No Intact Skin with non-blanching erhythema (reddened area on skin) Painful or Itchy When compared to adjacent tissue may be firmer/softer or warmer/cooler [] Stage 2 Pressure Ulcer: Specify Location: []Yes []No Partial thickness loss of dermis Abrasion, blister or shallow open crater Red/pink wound bed without slough [] Stage 3 Pressure Ulcer: Specify Location: []Yes [] No Full thickness skin loss (bone, tendon, muscle are not exposed) Damage or necrosis into subcutaneous soft tissues Slough present but does not obscure the depth of tissue loss Undermining and/or tunneling [] Stage 4 Pressure Ulcer: Specify Location: []Yes [] No Full thickness skin loss with exposed bone, tendon or muscle Slough Undermining and/or tunneling Extend into muscle and/or supporting structure (e.g. fascia, tendon, or joint capsule) [] Unstageable: Specify Location: [] []Yes [] No I DONT REMEMBER AXACTLY In responding to this query, please exercise your independent professional judgment. The fact that a question is asked does not imply that any particular answer is desired or expected. Thank you for your clarification on this documentation. If you have any questions please call:[ ][phone] * Thank you, [ ] Paula Bahena RN CDS [employer] charger [employer]er [facility]
[2017-08-19] MEDS ORDERED: Lidocaine 2% Inj (20ml) ONE (14:33)
[2017-08-19] MEDS ORDERED: Propofol 10 mg/ml Inj (20 ML) ONE (14:33)
[2017-08-19] MEDS: Sodium Chloride 0.9% 1,000 ML IV SCH (16:59)
[2017-08-19] MEDS: Insulin Detemir 100 units/ml Vial (Levemir) SC SCH (22:02)
--- NOTE | 2017-08-19 23:55 | CP.PCM.PN ---
Subjective - Date & Time of Evaluation Date of Evaluation: 08/19/17 Time of Evaluation: 16:00 - Subjective Subjective: status post EGD patient comfortable Objective - Vital Signs/Intake and Output Vital Signs (last 24 hours): Temp Pulse Resp BP Pulse Ox 98.4 F 79 20 156/97 H 98 08/19/17 18:00 08/19/17 22:00 08/19/17 18:00 08/19/17 21:54 08/19/17 18:00 Intake and Output: 08/19/17 08/20/17 18:59 06:59 Intake Total 0 540 Balance 0 540 - Medications Medications: Current Medications Amlodipine Besylate (Norvasc) 10 mg PO DAILY [facility] Last Admin: 08/19/17 09:38 Dose: 10 mg Aspirin (Aspirin Chewable) 81 mg PO DAILY [facility] Last Admin: 08/18/17 10:41 Dose: Not Given Atorvastatin Calcium (Lipitor) 40 mg PO DIN [facility] Last Admin: 08/19/17 17:38 Dose: 40 mg Carvedilol (Coreg) 25 mg PO Q12 [facility] Last Admin: 08/19/17 21:54 Dose: 25 mg Clopidogrel Bisulfate (Plavix) 75 mg PO DAILY [facility] Ferrous Sulfate (Feosol) 324 mg PO BID [facility] Last Admin: 08/19/17 17:38 Dose: 324 mg Hydralazine HCl (Apresoline) 50 mg PO Q8H [facility] Last Admin: 08/19/17 21:54 Dose: 50 mg Sodium Chloride (Sodium Chloride 0.9%) 1,000 mls @ 100 mls/hr IV .Q10H [facility] Last Admin: 08/19/17 16:59 Dose: 100 mls/hr Insulin Detemir (Levemir) 10 unit SC HS [facility] Last Admin: 08/19/17 22:02 Dose: Not Given Insulin Human Regular (Humulin R Low) 0 units SC ACHS [facility] PRN Reason: Protocol Last Admin: 08/19/17 22:01 Dose: Not Given Pantoprazole Sodium (Protonix Inj) 40 mg IVP Q12 [facility] Last Admin: 08/19/17 21:54 Dose: 40 mg - Labs Labs: 08/19/17 08:35 08/19/17 05:00 PT 12.0 SECONDS (9.4-12.5) 08/17/17 18:59 INR 1.05 (0.93-1.08) 08/17/17 18:59 APTT 27.4 Seconds (25.1-36.5) 08/17/17 18:59 - Head Exam Head Exam: ATRAUMATIC, NORMOCEPHALIC - Eye Exam Eye Exam: EOMI, Normal appearance Pupil Exam: PERRL - ENT Exam ENT Exam: Mucous Membranes Moist - Neck Exam Neck Exam: Full ROM. absent: Lymphadenopathy - Respiratory Exam Respiratory Exam: Clear to Ausculation Bilateral - Cardiovascular Exam Cardiovascular Exam: REGULAR RHYTHM, +S1, +S2. absent: JVD - GI/Abdominal Exam GI & Abdominal Exam: Soft, Normal Bowel Sounds Assessment and Plan - Assessment and Plan (Free Text) Assessment: iron deficiency anemia Status post transfusion Patient on aspirin and Plavix CT of the abdomen and pelvie Patient underwent upper GI endoscopy done and the patient was found to have body ulcerations Biopsies were not taken as paas on aspirin and Plavix Continue PPI Follow-up hemoglobin and hct Patient would benefit from for biopsy evaluation of the gastric ulceration Will discuss with Dr. Gilman regarding the timing of the procedure
[2017-08-20] MEDS: Sodium Chloride 0.9% 1,000 ML IV SCH ×3 (04:00→14:12)
[2017-08-20] MEDS: Insulin Reg-LOW-Coverage SC SCH ×3 (08:30→17:03)
[2017-08-20 08:50] VITALS: TEMP 98.1
--- NOTE | 2017-08-20 09:05 | CP.PCM.PN ---
Subjective - Date & Time of Evaluation Date of Evaluation: 08/19/17 Time of Evaluation: 09:00 - Subjective Subjective: Comfortable in bed. No nausea vomiting. Hb/Hct stable. No bleeding. Objective - Vital Signs/Intake and Output Vital Signs (last 24 hours): Temp Pulse Resp BP Pulse Ox 98.1 F 85 20 143/81 97 08/20/17 08:50 08/20/17 08:50 08/20/17 08:50 08/20/17 08:50 08/20/17 08:50 Intake and Output: 08/20/17 08/20/17 06:59 18:59 Intake Total 540 Balance 540 - Medications Medications: Current Medications Amlodipine Besylate (Norvasc) 10 mg PO DAILY [facility] Last Admin: 08/19/17 09:38 Dose: 10 mg Aspirin (Aspirin Chewable) 81 mg PO DAILY [facility] Last Admin: 08/18/17 10:41 Dose: Not Given Atorvastatin Calcium (Lipitor) 40 mg PO DIN [facility] Last Admin: 08/19/17 17:38 Dose: 40 mg Carvedilol (Coreg) 25 mg PO Q12 [facility] Last Admin: 08/19/17 21:54 Dose: 25 mg Clopidogrel Bisulfate (Plavix) 75 mg PO DAILY [facility] Ferrous Sulfate (Feosol) 324 mg PO BID [facility] Last Admin: 08/19/17 17:38 Dose: 324 mg Hydralazine HCl (Apresoline) 50 mg PO Q8H [facility] Last Admin: 08/20/17 05:42 Dose: 50 mg Sodium Chloride (Sodium Chloride 0.9%) 1,000 mls @ 100 mls/hr IV .Q10H [facility] Last Admin: 08/20/17 04:00 Dose: 100 mls/hr Insulin Detemir (Levemir) 10 unit SC HS [facility] Last Admin: 08/19/17 22:02 Dose: Not Given Insulin Human Regular (Humulin R Low) 0 units SC [facility] PRN Reason: Protocol Last Admin: 08/20/17 08:30 Dose: 1 u Pantoprazole Sodium (Protonix Ec Tab) 40 mg PO DAILY [facility] - Labs Labs: 08/19/17 08:35 08/19/17 05:00 PT 12.0 SECONDS (9.4-12.5) 08/17/17 18:59 INR 1.05 (0.93-1.08) 08/17/17 18:59 APTT 27.4 Seconds (25.1-36.5) 08/17/17 18:59 - Constitutional Appears: Well, Toxic - Head Exam Head Exam: ATRAUMATIC, NORMAL INSPECTION, NORMOCEPHALIC - Eye Exam Eye Exam: Normal appearance Pupil Exam: NORMAL ACCOMODATION - ENT Exam ENT Exam: Mucous Membranes Moist - Neck Exam Neck Exam: Normal Inspection - Respiratory Exam Respiratory Exam: Clear to Ausculation Bilateral, NORMAL BREATHING PATTERN - Cardiovascular Exam Cardiovascular Exam: REGULAR RHYTHM, +S1, +S2 - GI/Abdominal Exam GI & Abdominal Exam: Soft, Normal Bowel Sounds - Back Exam Back Exam: NORMAL INSPECTION - Neurological Exam Neurological Exam: Alert, Awake, Oriented x3 - Psychiatric Exam Psychiatric exam: Normal Affect - Skin Skin Exam: Normal Color, Warm Assessment and Plan - Assessment and Plan (Free Text) Assessment: 1. Anemia : multifactorial - iron deficiency, CKD . Iron studies normal, likely fasely elevated iron due to recent PRBC transfusion. repeat iron studies. 2. CKD III. stable. 3. DM II : on insulin. 4. GI : gastric ulcer superficial. repeat will be done for biopsy after stopping ASA, Plavix. thank you Dr. Gilman for allowing us to participate in her care.
[2017-08-20] MEDS ORDERED: Pantoprazole 40 mg EC Tab PO SCH (10:00)
--- NOTE | 2017-08-20 10:35 | PN ---
DATE: 08/20/2017 SUBJECTIVE: She is comfortable in bed, in no acute distress. No bleeding from any site. Underwent EGD, showed two superficial gastric ulcers . They were not biopsied because she was on aspirin and Plavix. Iron studies were normal, done 2 days ago, likely related to blood transfusion. She feels better. No fatigue. No shortness of breath. No cough with expectoration. No fever. REVIEW OF SYSTEMS: As per HPI, rest of 12 point review of systems reviewed and negative. LABORATORY DATA: Labs from yesterday, white count 8.1, hemoglobin 9.9, hematocrit 30.8, platelet 353. Creatinine normal. SPEP and immunofixation did not show M protein. B12 level is 357. MEDICATIONS: Norvasc 10 mg daily, aspirin 81 mg daily, Lipitor 40 mg daily, Coreg 25 mg p.o. b.i.d.,. Plavix 75 mg daily, on iron tablets, Levemir, Protonix, and IV fluids. PHYSICAL EXAMINATION GENERAL: Comfortable in bed, in no acute distress. VITAL SIGNS: Temperature 98.7, heart rate 85 per minute, blood pressure 140/80, respiratory rate 20 per minute, oxygen saturation 97% on room air. HEENT: Pallor positive. NECK: No lymphadenopathy. CHEST: Air entry present and equal bilaterally. No added sounds. CARDIOVASCULAR: S1 and S2 normal. No murmur, no gallop. ABDOMEN: Soft and nontender. No hepatosplenomegaly. EXTREMITIES: No edema. SKIN: No petechiae, no rash. ASSESSMENT: 1. Anemia. 2. Morbid obesity. 3. Gastric ulcer. 4. Hypertension. 5. Diabetes mellitus type 2. 6. Chronic kidney disease. PLAN: Chronic anemia, we will repeat the iron studies. She might have iron deficiency, although iron studies were normal. Iron studies might be elevated because of the recent blood transfusion during this hospitalization. Creatinine elevated to 1.3. She might have chronic kidney disease related to diabetes. If iron studies are normal again, she will need erythropoietin stimulating agent to maintain normal hemoglobin. SPEP and immunofixation normal, B12 and folate levels are normal. She will underwent repeat EGD after stopping aspirin and Plavix, so that ulcers can be biopsied. Followed by Dr. Walter, notes reviewed, EGD report reviewed. Labs ordered for today; iron studies, CBC, BMP. Discussed with the patient the differential diagnoses. We will continue to follow during hospitalization. Renal functions currently stable. Current labs pending from today. Venus Jimenez MD
[2017-08-20 11:09] LABS: BASO # 0.04 K/mm3 (0.0-2.0); BASO % 0.5 % (0.0-3.0); EOS # 0.2 (0.0-0.7); GRAN # 5.27 (1.4-6.5); GRAN % 64.6 % (50.0-68.0); HEMOGLOBIN 9.5 g/dL (12.0-16.0); LYMPH # 1.7 (1.2-3.4); LYMPH % 20.6 % (22.0-35.0); MEAN CELL VOLUME 82.6 fl (80.0-105.0); MEAN CORPUSCULAR HEMOGLOBIN 26.2 pg (25.0-35.0); MEAN CORPUSCULAR HGB CONC 31.8 g/dl (31.0-37.0); MEAN PLATELET VOLUME 9.8 fl (7.0-11.0); MONO % 12.3 % (1.0-6.0); RBC 3.62 10^6/uL (3.5-6.1); RED CELL DISTRIBUTION WIDTH 17.3 % (11.5-14.5); WHITE BLOOD COUNT 8.2 10^3/ul (4.5-11.0)
[2017-08-20 11:28] LABS: IRON 51 ug/dL (45-180)
[2017-08-20 11:31] LABS: CALCIUM 8.6 mg/dL (8.4-10.5)
[2017-08-20 11:37] LABS: % IRON SATURATION 21 % (20-55); TOTAL IRON BINDING CAPACITY 238 ug/dL (265-497)
--- NOTE | 2017-08-20 17:22 | PN ---
DATE: 08/20/2017 SUBJECTIVE: The patient is a 71-year-old female. The patient is seen and examined on the bedside, having right upper extremity swelling. No nausea, vomiting, diarrhea. No shortness of breath. No cough. No expectoration. No fever. Feels better. PHYSICAL EXAMINATION: VITAL SIGNS: Temperature 98.7, pulse 84, blood pressure 140/80, respiratory rate 20. HEENT: Head normocephalic, atraumatic. Eyes PERRLA. Extraocular muscles intact. Conjunctivae clear. Nose patent. Mucous membrane moist. NECK: Supple. No carotid bruit. No JVD or thyromegaly. CHEST: Bilaterally symmetrical. HEART: S1 and S2 positive. LUNGS: Clear to auscultation. ABDOMEN: Soft. Bowel sounds positive. No organomegaly. EXTREMITIES: Lower extremities, no edema, no cyanosis. Right upper extremity is swollen. I ordered ultrasound. NEUROLOGICAL: The patient is awake and alert. LABORATORY DATA: White blood cell is 8.1, hemoglobin 9.9, hematocrit 30.8, platelets 353. Creatinine normal. SPEP and immunofixation did not show M protein. MEDICATIONS: Aspirin, Lipitor, Coreg, Plavix, Levemir, Protonix. ASSESSMENT AND PLAN: Ms. Tamy Abbott, 71-year-old lady with anemia, morbid obesity, gastric ulcers, hypertension, diabetes mellitus type 2, chronic kidney disease. Due to swelling of the right upper extremity, we ordered ultrasound stat, results are pending. Has iron-deficiency anemia, status post blood transfusion; chronic kidney disease. Send for esophagogastroduodenoscopy after stopping aspirin and Plavix, so that ulcers can be biopsied. Followed by Dr. Walter. The patient needs repeat esophagogastroduodenoscopy and colonoscopy as outpatient. We will do arrangement. Meanwhile, continue present treatment. Repeat labs. We will follow up. Deisy Gilman MD
[2017-08-20 18:48] VITALS: BP 152/81; PULSE 80; RESP 18; O2SAT 100
--- NOTE | 2017-08-20 19:57 | PN ---
DATE: 08/20/2017 PULMONARY PROGRESS NOTE REFERRING PHYSICIAN: Deisy Gilman MD SUBJECTIVE: The patient is lying in the bed, head at 45 degrees. Feels better. No headache or rhinitis. No nausea, no vomiting, no diarrhea. Has a dressing on the left foot. OBJECTIVE: GENERAL: In acute distress. VITAL SIGNS: Temperature is 98, heart rate 78, respiratory rate is 20, blood pressure 140/70, pulse ox 96% on room air. HEENT: Moist mucous membrane. Crowded airway. NECK: Supple. No JVD. LUNGS: Fair airflow with rhonchi. HEART: S1 and S2. ABDOMEN: Soft, nontender. No organomegaly. EXTREMITIES: There is no edema. Left foot has a nonhealing ulcer. NEUROLOGIC: Awake, alert, and just follow simple commands. MEDICATIONS: She is on hydralazine 50 mg every 8 hours, Carafate 1 g at bedtime, Coreg 25 mg twice a day, Ecotrin 81 mg daily, ferrous sulfate 324 mg twice a day, insulin coverage, Levemir 10 units subcu at bedtime, Lipitor 40 mg daily, Norvasc 10 mg daily, Plavix 75 mg daily, Protonix 40 mg daily IV fluid normal saline 100 mL/hour. LABORATORY DATA: Show hemoglobin 9.5, hematocrit 29.9, WBC 8.2, and platelet count is 329. Sodium 141, potassium 4, chloride 110, bicarbonate 22. BUN 19, creatinine 1.1. Glucose 188. Calcium 8.6. Iron is 51. Repeat chest x-ray done yesterday shows mild cardiomegaly, mild vascular congestion, otherwise unremarkable. EGD done yesterday has a gastric ulcer, small hiatal hernia, normal duodenum. IMPRESSION AND PLAN: Severe anemia probably secondary to gastric ulcer bleed. Anemia was symptomatic, requiring transfusion. Hypertension, diabetes, hypothyroid, probably congestion also related to high output failure. Today, she feels better. Keep head elevated at 45 degrees. Aspiration precaution. Hematology and GI followup. Followup H and H. Thank you and we will follow with you. Alayna Terry MD
--- NOTE | 2017-08-21 08:04 | US ---
PROCEDURE: Right upper extremity venous US CLINICAL HISTORY: Arm pain and swelling Evaluate for deep venous thrombosis. PHYSICIAN(S): Johnathan Damian M.D FINDINGS: The visualized rightinternal jugular vein is sonographically normal and compressible. No evidence of obstruction or thrombus is seen. The visualized segments of the right subclavian vein are patent with normal waveforms. No sonographic evidence of obstruction or thrombosis is seen. The visualized deep venous system of the proximal right upper extremity is sonographically normal and compressible. IMPRESSION: 1. No sonographic evidence for deep venous thrombosis in the visualized segments of the right upper extremity.
--- NOTE | 2017-08-22 02:51 | DS ---
CHIEF COMPLAINT: Abnormal labs. HISTORY OF PRESENT ILLNESS: Tamy Abbott is a 71-year-old female with past medical history of diabetes, hypertension, left foot gangrene, came to the Emergency Room for very low hemoglobin and for blood transfusion, hemoglobin was 7. Patient lives in [facility], and found that hemoglobin is low. Patient was transferred to the [facility] Emergency Room, readmitted the patient, and gave blood transfusion. Dr. Walter did upper endoscopy, found gastritis, gastric ulcers, sent back safely to [facility]. CAT scan of abdomen and pelvis done, chest x-ray done. Seen by Dr. Terry. Dr. Johnathan Damian did the ultrasound of the swollen right upper extremity. Dr. Venus Jimenez, product specialist, saw the patient. Will repeat labs. PAST MEDICAL HISTORY: As above. FAMILY HISTORY: Father and mother noncontributory. HABITS: Never smoked, no drug, no ethanol. ALLERGIES: PATIENT IS ALLERGIC WITH NIFEDIPINE. HOME MEDICATIONS: Reviewed by me. For more details, see my progress note dictated on 08/19/2017 at 15:29. I will do followup of the patient in [facility] and need upper endoscopy for followup as per Dr. Walter. Dr. Walter's office will call and make the appointment. Deisy Gilman MD
--- NOTE | 2017-08-22 09:17 | PN ---
DATE: 08/19/2017 SUBJECTIVE: The patient seen and examined at the bedside early in the morning, looking comfortable. No nausea, vomiting, or diarrhea. No hematuria or hematochezia. No swelling of the leg. No chest pain. No palpitation. Patient is a very poor historian. PHYSICAL EXAMINATION: VITAL SIGNS: Temperature 98.1, pulse 76, blood pressure 150/75, and respiratory rate 15. HEENT: Head: Normocephalic, atraumatic. Eyes: PERRLA. Extraocular muscles intact. Conjunctivae clear. Nose patent. Mucous membrane moist. NECK: Supple. No carotid bruit. No JVD or thyromegaly. CHEST: Bilaterally symmetrical. HEART: S1 and S2 positive. LUNGS: Clear to auscultation. ABDOMEN: Soft. Bowel sounds present. No organomegaly. EXTREMITIES: No edema. No cyanosis. NEUROLOGIC: The patient is awake and alert. Moving all 4 extremities. No focal deficit. MEDICATIONS: Hydralazine, aspirin, Coreg, iron, insulin Levemir, Lipitor, Norvasc, Plavix, Protonix, NS. LABORATORY DATA: White blood cells 8.1; hemoglobin 9.9, on admission it was 7.4; hematocrit 30.8, platelets 353. Sodium 141, potassium 4.1. BUN 26, creatinine 1.1. Glucose 140 to 152. ASSESSMENT AND PLAN: Ms. Scar Morelos is a 71-year-old lady with anemia, hyperchloremia, hyperglycemia, went for upper endoscopy by Dr. Walter, found the patient had hiatal hernia, mild gastritis, gastric ulcers, hypertension, hypothyroidism, sacral ulcers. The patient was having shortness of breath due to anemia. Hematology, Gis on the case. We will have sometime discussion done with Dr. Walter. Appreciated Dr. Jimenez's input. Reviewed CAT scan of the abdomen and pelvis. Chronic kidney disease, iron studies appreciated. Gastrointestinal and deep vein thrombosis prophylaxes. Repeat labs. We will follow up. Deisy Gilman MD [facility]
== END 2017-08-20 19:02 | DRG 811 ==
LOC: ED 17:06 → ERH 19:40 → 3RSO 21:13
PROVIDERS: ADMIT Internal Medicine; ATTEND Internal Medicine
PROC: 30233N1 Transfusion of Nonautologous Red Blood Cells into Peripheral Vein, Percutaneous Approach (ICD-10-PCS; 2017-08-17)
PROC: 0DJ08ZZ Inspection of Upper Intestinal Tract, Via Natural or Artificial Opening Endoscopic (ICD-10-PCS; principal; 2017-08-19 15:00)
DX: D50.9 Iron deficiency anemia, unspecified (principal); K25.4 Chronic or unspecified gastric ulcer with hemorrhage; D63.8 Anemia in other chronic diseases classified elsewhere; E03.9 Hypothyroidism, unspecified; E11.22 Type 2 diabetes mellitus with diabetic chronic kidney disease; E11.65 Type 2 diabetes mellitus with hyperglycemia; E66.01 Morbid (severe) obesity due to excess calories; E87.8 Other disorders of electrolyte and fluid balance, not elsewhere classified; F03.90 Unspecified dementia, unspecified severity, without behavioral disturbance, psychotic disturbance, mood disturbance, and anxiety; I12.9 Hypertensive chronic kidney disease with stage 1 through stage 4 chronic kidney disease, or unspecified chronic kidney disease; K29.70 Gastritis, unspecified, without bleeding; K44.9 Diaphragmatic hernia without obstruction or gangrene; N18.3 Chronic kidney disease, stage 3 (moderate); L89.159 Pressure ulcer of sacral region, unspecified stage; Z79.02 Long term (current) use of antithrombotics/antiplatelets; Z79.4 Long term (current) use of insulin; Z79.82 Long term (current) use of aspirin; Z87.440 Personal history of urinary (tract) infections; Z88.8 Allergy status to other drugs, medicaments and biological substances; Z89.432 Acquired absence of left foot; Z89.422 Acquired absence of other left toe(s)

== ENCOUNTER 2017-09-03 22:13 | Inpatient (IN) | payer MEDICARE ==
[2017-09-03 22:41] VITALS: BMI 35.4
[2017-09-03 23:27] LABS: VENOUS BLOOD GAS BASE EXCESS -5.1 mmol/L (0.0-2.0); VENOUS BLOOD GAS PO2 187 mm/Hg (30-55); VENOUS BLOOD PH 7.27 (7.32-7.43)
[2017-09-03 23:34] LABS: PROTHROMBIN TIME 13.1 SECONDS (9.4-12.5)
[2017-09-03 23:35] LABS: INR 1.15 (0.93-1.08); PARTIAL THROMBOPLASTIN TIME 50.8 Seconds (25.1-36.5)
[2017-09-03 23:42] LABS: ALB/GLOB RATIO 1.1 (1.1-1.8); ALBUMIN 3.5 g/dL (3.0-4.8); ALT/SGPT 19 U/L (7-56); AST/SGOT 18 U/L (14-36); BLOOD UREA NITROGEN 52 mg/dL (7-21); CALCIUM 9.1 mg/dL (8.4-10.5); GFR AFRICAN-AMERICAN 53; GFR NON-AFRICAN AMERICAN 44
[2017-09-03 23:43] LABS: TROPONIN I < 0.01 ng/mL
[2017-09-03 23:48] LABS: BASO # 0.02 K/mm3 (0.0-2.0); BASO % 0.3 % (0.0-3.0); EOS # 0.1 (0.0-0.7); EOS % 0.7 % (1.5-5.0); GRAN # 5.31 (1.4-6.5); GRAN % 76.8 % (50.0-68.0); HEMOGLOBIN 8.5 g/dL (12.0-16.0); LYMPH # 0.8 (1.2-3.4); LYMPH % 11.8 % (22.0-35.0); MEAN CELL VOLUME 83.3 fl (80.0-105.0); MEAN CORPUSCULAR HEMOGLOBIN 26.7 pg (25.0-35.0); MEAN CORPUSCULAR HGB CONC 32.1 g/dl (31.0-37.0); MEAN PLATELET VOLUME 10.8 fl (7.0-11.0); MONO # 0.7 (0.1-0.6); MONO % 10.4 % (1.0-6.0); RBC 3.18 10^6/uL (3.5-6.1); RED CELL DISTRIBUTION WIDTH 17.9 % (11.5-14.5); WHITE BLOOD COUNT 6.9 10^3/ul (4.5-11.0)
[2017-09-03] MEDS ORDERED: Sodium Chloride 0.9% 1,000 ML IV STA (23:54)
--- NOTE | 2017-09-03 23:56 | ED PDOC ---
Arrival/HPI - General Chief Complaint: Trauma Time Seen by Provider: 09/03/17 22:50 Historian: Patient, Family - History of Present Illness Narrative History of Present Illness (Text): 09/04/17 02:03 72 year old female, with past medical history of diabetes and hypertension, presents to the Emergency department for evaluation following syncopal episode at skilled nursing prior to arrival. As per family, patient fell from her wheelchair during the episode but denies any head trauma. Upon questioning, patient is unable to explain the episode. Family states patient has been acting confused for past couple of days and requests medical evaluation. Patient denies any headache, fever, chills, nausea, vomiting, diarrhea, abdominal pain, chest pain, shortness of breath or any other complaints. PMD: Dr. Gilman Time/Duration: Prior to Arrival Symptom Onset: Sudden Symptom Course: Improving Activities at Onset: Light Context: Other (senior care) Past Medical History - Provider Review Nursing Documentation Reviewed: Yes - Infectious Disease Hx of Infectious Diseases: None - Reproductive Menopause: Yes - Cardiac Hx Cardiac Disorders: Yes Hx Hypertension: Yes - Pulmonary Hx Respiratory Disorders: No - Neurological Hx Dementia: Yes - HEENT Hx HEENT Disorder: No - Renal Hx Renal Disorder: No - Endocrine/Metabolic Hx Diabetes Mellitus Type 2: Yes Hx Hypothyroidism: Yes - Hematological/Oncological Hx Blood Transfusions: Yes - Integumentary Hx Dermatological Disorder: Yes - Musculoskeletal/Rheumatological Hx Musculoskeletal Disorders: Yes Hx Falls: Yes - Gastrointestinal Hx Gastrointestinal Disorders: No - Genitourinary/Gynecological Hx Hematuria: Yes Hx Incontinence: Yes Hx Urinary Tract Infection: Yes - Psychiatric Hx Psychophysiologic Disorder: No Hx Substance Use: No - Surgical History Other/Comment: labial abscess removed-incision and drainage. left leg. left foot. 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 - Anesthesia Hx Anesthesia Reactions: No Hx Malignant Hyperthermia: No - Suicidal Assessment Feels Threatened In Home Enviroment: No Family/Social History - Physician Review Nursing Documentation Reviewed: Yes Family/Social History: No Known Family HX Smoking Status: Never Smoked Hx Alcohol Use: No Hx Substance Use: No Allergies/Home Meds Allergies/Adverse Reactions: Allergies nifedipine Adverse Reaction (Severe, Verified 07/29/17 19:31) hypotension, bradycardia, CHF Home Medications: Home Meds Medication Instructions Recorded Confirmed oxyCODONE/Acetaminophen [Percocet 1 tab PO Q6H PRN 06/28/17 08/17/17 5/325 mg Tab] Review of Systems - Physician Review All systems were reviewed & negative as marked: Yes - Review of Systems Constitutional: Normal. absent: Fevers Eyes: Normal ENT: Normal Respiratory: Normal. absent: SOB Cardiovascular: Normal. absent: Chest Pain Gastrointestinal: Normal. absent: Abdominal Pain, Diarrhea, Nausea, Vomiting Genitourinary Female: Normal Musculoskeletal: Normal Skin: Normal Neurological: Other (Sync). absent: Headache Endocrine: Normal Hemo/Lymphatic: Normal Psychiatric: Normal Physical Exam Vital Signs Reviewed: Yes Vital Signs Temp Pulse Resp BP Pulse Ox 09/03/17 22:33 98.8 F 47 L 18 116/64 96 Temperature: Afebrile Blood Pressure: Normal Pulse: Bradycardic Respiratory Rate: Normal Appearance: Positive for: Well-Appearing, Non-Toxic, Comfortable Pain Distress: None Mental Status: Positive for: other (Awake and Oriented to place and person) Finger Stick Blood Glucose: 156 - Systems Exam Head: Present: Atraumatic, Normocephalic Pupils: Present: PERRL Extroacular Muscles: Present: EOMI Conjunctiva: Present: Normal Mouth: Present: Moist Mucous Membranes Neck: Present: Normal Range of Motion Respiratory/Chest: Present: Clear to Auscultation, Good Air Exchange. No: Respiratory Distress, Accessory Muscle Use Cardiovascular: Present: Normal S1, S2, Bradycardic. No: Murmurs Abdomen: No: Tenderness, Distention, Peritoneal Signs Back: Present: Normal Inspection Upper Extremity: Present: Normal Inspection. No: Cyanosis, Edema Lower Extremity: Present: Normal Inspection, Other (Old healing skin ulcer to the left foot.). No: Edema, Cyanosis Neurological: Present: GCS=15, CN II-XII Intact, Speech Normal Skin: Present: Warm, Dry, Normal Color. No: Rashes Psychiatric: Present: Alert, Oriented x 3, Normal Insight, Normal Concentration Medical Decision Making ED Course and Treatment: 09/03/17 23:55 Impression: Differential Diagnosis included but are not limited to: Plan: -- VBG -- CT of Head -- Labs -- EKG -- Chest X-ray -- IV Fluids -- Blood Culture -- Urine Culture -- Urinalysis -- Reassess and disposition Prior Visits: Notes and results from previous visits were reviewed. Progress Notes: 09/03/17 23:55 EKG: Ordered, reviewed, and independently interpreted the EKG. Rate : 47 BPM Rhythm : Sinus Bradycardia Interpretation : Nonspecific ST/T wave changes. 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 09/04/17 02:[address] Gilman, who is aware and agrees with Emergency department management plan, accepts patient under her service. Requests Dr. Trent and Dr. Burks on consult. - Lab Interpretations Lab Results: 09/03/17 23:00 09/03/17 23:00 Lab Results 09/03/17 23:10: Urine Color Yellow, Urine Appearance Sl cloudy, Urine pH 6.0, Ur Specific [place] 1.025, Urine Protein Trace H, Urine Glucose (UA) Negative, Urine Ketones Negative, Urine Blood Negative, Urine Nitrate Negative, Urine Bilirubin Negative, Urine Urobilinogen 0.2, Ur Leukocyte Esterase Small H, Urine RBC 0 - 2, Urine WBC 2 - 5, Ur Epithelial Cells 3 - 4, Urine Bacteria Many 09/03/17 23:00: Sodium 148, Chloride 114 H, Potassium 4.0, Carbon Dioxide 20 L, Anion Gap 18, BUN 52 H, Creatinine 1.2, Est GFR ( Amer) 53, Est GFR (Non- Af Amer) 44, Random Glucose 150 H, Calcium 9.1, Total Bilirubin 0.3, AST 18, ALT 19, Alkaline Phosphatase 121, Lactate Dehydrogenase 610, Total Creatine Kinase 101, Troponin I < 0.01, Total Protein 6.7, Albumin 3.5, Globulin 3.2, Albumin/Globulin Ratio 1.1 09/03/17 23:00: pO2 187 H, VBG pH 7.27 L, VBG pCO2 48.0, VBG HCO3 22.0, VBG Total CO2 23.5, VBG O2 Sat (Calc) 99.6 H, VBG Base Excess -5.1 L, VBG Potassium 4.2, Sodium 147.0, Chloride 119.0 H, Glucose 153 H, Lactate 0.6 L, FiO2 21.0, Venous Blood Potassium 4.2 09/03/17 23:00: PT 13.1 H, INR 1.15 H, APTT 50.8 H 09/03/17 23:00: WBC 6.9, RBC 3.18 L, Hgb 8.5 L, Hct 26.5 L, MCV 83.3, MCH 26.7, MCHC 32.1, RDW 17.9 H, Plt Count 209, MPV 10.8, Gran % 76.8 H, Lymph % (Auto) 11.8 L, [place] % (Auto) 10.4 H, Eos % (Auto) 0.7 L, Baso % (Auto) 0.3, Gran # 5.31 , Lymph # (Auto) 0.8 L, [place] # (Auto) 0.7 H, Eos # (Auto) 0.1, Baso # (Auto) 0.02 - RAD Interpretation Radiology Orders: 09/03/17 23:00 CHEST PORTABLE [RAD] Stat 09/03/17 23:05 HEAD W/O CONTRAST [CT] Stat Rotoformer Backtender: Radiologist - EKG Interpretation Interpreted by ED Physician: Yes Type: 12 lead EKG - Medication Orders Current Medication Orders: Sodium Chloride (Sodium Chloride 0.9%) 1,000 mls @ 150 mls/hr IV .Q6H40M NIDHI Discontinued Medications Sodium Chloride (Sodium Chloride 0.9%) 1,000 mls @ 999 mls/hr IV .Q1H1M STA Stop: 09/04/17 00:54 - Scribe Statement The provider has reviewed the documentation as recorded by the Cynthiaibe Iraj Rene. All medical record entries made by the Scribe were at my direction and personally dictated by me. I have reviewed the chart and agree that the record accurately reflects my personal performance of the history, physical exam, medical decision making, and the department course for this patient. I have also personally directed, reviewed, and agree with the discharge instructions and disposition. Disposition/Present on Arrival - Present on Arrival Any Indicators Present on Arrival: No History of DVT/PE: No History of Uncontrolled Diabetes: Yes Urinary Catheter: No History of Decub. Ulcer: No History Surgical Site Infection Following: None - Disposition Have Diagnosis and Disposition been Completed?: Yes Diagnosis: Dementia, Syncope, Bradycardia Disposition: HOSPITALIZED Disposition Time: 02:57 Condition: STABLE
[2017-09-04 00:55] LABS: URINE BILIRUBIN NEGATIVE (NEGATIVE); URINE BLOOD NEGATIVE (NEGATIVE); URINE GLUCOSE (UA) NEGATIVE (NEGATIVE); URINE LEUKOCYTE ESTERASE SMALL Leu/uL (NEGATIVE); URINE PROTEIN TRACE mg/dL (<30 mg/dL); URINE UROBILINOGEN 0.2 E.U./dL (<1 E.U./dL)
[2017-09-04 01:03] LABS: URINE APPEARANCE SL CLOUDY (CLEAR); URINE COLOR YELLOW (YELLOW)
[2017-09-04 01:15] LABS: URINE RBC 0 - 2 /hpf (0-2)
[2017-09-04 01:16] LABS: URINE BACTERIA MANY (NEG)
[2017-09-04] MEDS: Sodium Chloride 0.9% 1,000 ML IV SCH ×4 (04:22→12:45)
--- NOTE | 2017-09-04 08:54 | CT ---
PROCEDURE: CT HEAD WITHOUT CONTRAST. HISTORY: syncope COMPARISON: 07/24/2017 TECHNIQUE: Axial computed tomography images were obtained through the head/brain without intravenous contrast. Coronal and sagittal reconstructed images. Radiation dose: Total exam DLP = 1040.27 mGy-cm. This CT exam was performed using one or more of the following dose reduction techniques: Automated exposure control, adjustment of the mA and/or kV according to patient size, and/or use of iterative reconstruction technique. FINDINGS: HEMORRHAGE: No intracranial hemorrhage. BRAIN: No mass effect or edema. No atrophy or chronic microvascular ischemic changes. Left temporal arachnoid cyst unchanged VENTRICLES: Unremarkable. No hydrocephalus. CALVARIUM: Unremarkable. PARANASAL SINUSES: Unremarkable as visualized. No significant inflammatory changes. MASTOID AIR CELLS: Unremarkable as visualized. No inflammatory changes. OTHER FINDINGS: None. IMPRESSION: No acute intracranial abnormalities. No significant findings to account for the clinical presentation. No significant interval change compared to the prior examination(s). Concordant results (preliminary interpretation) provided by [facility]. Procedure Completed: 18:18. Preliminary ([facility]) Report: Dictated and Authenticated: 02:15. Final Interpretation: 08:52
[2017-09-04] MEDS: Meropenem IV 1 gm in NS 50 ML IVPB SCH ×3 (09:43→22:18)
--- NOTE | 2017-09-04 10:27 | RAD ---
HISTORY: Sepsis Patient COMPARISON: 08/19/2017 FINDINGS: LUNGS: Multifocal infiltrates likely pulmonary edema. PLEURA: No significant pleural effusion identified, no pneumothorax apparent. CARDIOVASCULAR: Pulmonary edema asymmetrical right greater than left, an acute finding compared to the prior study. OSSEOUS STRUCTURES: No significant abnormalities. VISUALIZED UPPER ABDOMEN: Normal. OTHER FINDINGS: None. IMPRESSION: Cardiomegaly, presumed cardiogenic pulmonary edema an acute finding compared to the prior study.
[2017-09-04] MEDS: Clotrimazole 1% Cream(30 gm) TOP SCH (11:23)
[2017-09-04] MEDS: Linezolid 600 mg in D5W 300 ml 600 MG/300 ML BAG IVPB SCH ×2 (11:25→23:09)
[2017-09-04] MEDS: Pantoprazole 40 mg EC Tab PO SCH (11:27)
[2017-09-04] MEDS: Insulin Reg-LOW-Coverage SC SCH ×3 (12:11→23:50)
[2017-09-04] MEDS: Albuterol-Ipratrop 3 mg / 0.5 (3 ml) UD IH SCH ×2 (13:28→19:24)
--- NOTE | 2017-09-04 17:03 | CARD ---
APPROVED REPORT EKG Measurement Heart [id number] <Conclusion> Marked sinus bradycardia Cannot rule out Anterior infarct, age undetermined Prolonged QT Abnormal ECG
--- NOTE | 2017-09-04 17:33 | CON ---
DATE: 09/04/2017 PULMONARY CONSULT REFERRING PHYSICIAN: Deisy Gilman MD. REASON FOR CONSULT: Syncopal episode. Short of breath. HISTORY OF PRESENT ILLNESS: This is a 71-year-old female, known to me previous admission with a history of diabetes, hypertension, anemia requiring transfusion in the past, history of foot gangrene, who was at longterm while sitting in her wheelchair, she had syncopal episode and fell. The patient does not remember the incident, brought into emergency room feeling weak, fatigue and tired. In the past, she had an EGD done, found epigastric ulcers, but no biopsy because she was on aspirin and Plavix. There is no diarrhea. Does have green colors of stool, though. No nausea. No vomiting. No leg pain. No leg swelling. 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 SOCIAL HISTORY: Nonsmoker, nondrinker. alf resident. FAMILY HISTORY: No significant cardiopulmonary diseases are reported. ALLERGY: TO NIFEDIPINE. MEDICATIONS: She is on hydralazine 50 mg every 8 hours, Carafate 1 g at bedtime, DuoNeb every 4 hours, Ecotrin 81 mg daily, ferrous sulfate 324 mg three times a day, insulin coverage, Lasix 40 mg daily, Levemir 10 units subcu at bedtime, Lipitor 40 mg daily, Lotrimin to affected area, Merrem 1 g IV every 8 hours, Norvasc 10 mg daily, potassium 20 mEq daily, Protonix 40 mg daily, Tylenol p.r.n., Zyvox 600 mg every 12 hours. REVIEW OF SYSTEMS: Lethargic, sleepy, arousable. No headache. No rhinitis. Short of breath with exertion. No chest pain. No nausea. No abdominal pain. No dysuria. Does have some foot discomfort. PHYSICAL EXAMINATION: GENERAL: Lying in the bed, sleepy and tired, but arousable. VITAL SIGNS: Temp is she is hypothermic, heart rate is 51, respiratory rate is 20, blood pressure 113/54, pulse ox 94% on 2 L nasal cannula. HEENT: Moist mucous membrane. Crowded airway. Mallampati score is 4. NECK: Supple. No JVD. LUNGS: Have poor effort, but fair airflow with few rhonchi. HEART: S1 and S2. ABDOMEN: Soft, nontender. No organomegaly. EXTREMITIES: Has a foot ulcer. NEUROLOGICAL: Awake, sleepy, arousable. Follows simple command. LABORATORY DATA: Shows hemoglobin 8.5, hematocrit 26.5, WBC 6.9, platelet is 209. INR 1.15, PTT is 51. Blood gases done yesterday, which were VBG showed pH 7.27, pCO2 of 48, O2 of 187. Sodium 148, potassium 4, chloride 114, bicarbonate 20, BUN 52, creatinine 1.2, glucose 150, calcium 9.1, AST 18, ALT 19, alk phos is 121, LDH 610, creatine kinase 101. Troponin less than 0.01. Total protein 6.7, albumin 3.3, procalcitonin 0.05. TSH is 4.4. IMPRESSION AND PLAN: Severe anemia, probably secondary to gastric ulcers; may have sepsis, origin could be the foot; hypertension; diabetes; hypothyroid; history of congestive heart failure, which could be high output failure. Spoke to nursing staff. Agree with the present treatment. Being treated with broad-spectrum antibiotics. We will send cortisol level. May give first hydrocortisone for now. Follow up TSH, actually that is normal. Thank you and we will follow up with you. Alayna Terry MD
[2017-09-04 21:17] LABS: ARTERIAL BLOOD GAS HCO3 20.7 mmol/L (21-28); ARTERIAL BLOOD GAS O2 SAT 96.2 % (95-98); ARTERIAL BLOOD GAS PCO2 42 mm/Hg (35-45)
[2017-09-04] MEDS: Insulin Detemir 100 units/ml Vial (Levemir) SC SCH (23:50)
[2017-09-05] MEDS: Albuterol-Ipratrop 3 mg / 0.5 (3 ml) UD IH SCH ×6 (00:23→19:47)
--- NOTE | 2017-09-05 02:12 | CON ---
DATE: 09/04/2017 LOCATION: The patient in to our telemetry, 262, bed 2. REASON FOR CONSULTATION: Bradycardia, history of fall. HISTORY OF PRESENT ILLNESS: A 72-year-old female, who is a resident of prison, was admitted with history that patient at prison was in wheelchair when she fell from her wheelchair. There is no history of chest pain, shortness of breath or palpitations associated with this episode. The patient is known to have dementia, hypertension, falls in the past, urinary incontinence, hypothyroidism. According to the family, the patient seemed to be more confused today as compared to other times. 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 PERSONAL HISTORY: No history of smoking or drinking. ALLERGIES: THE PATIENT IS ALLERGIC TO NIFEDIPINE. MEDICATIONS: List of medications at prison, the patient was on hydralazine 50 mg every 8 hours, amlodipine 10 mg daily, Carafate 1 g at bedtime, Protonix 40 mg daily, insulin Levemir 10 units subcu at bedtime, Feosol 324 b.i.d., Lipitor 40 daily, aspirin 81 daily. The patient is also on Percocet for pain. Carvedilol 25 mg b.i.d. PHYSICAL EXAMINATION: VITAL SIGNS: Blood pressure 113/54, respirations 19, pulse 56, temperature 92.1. HEENT: Head is normocephalic. Eyes, pupils normal. Conjunctivae pale. NECK: JVP low. Carotids equal. THORAX: AP diameter normal. LUNGS: No rales. CARDIOVASCULAR: S1 and S2. ABDOMEN: Soft. No tenderness. No organomegaly. EXTREMITIES: No clubbing. No cyanosis. LABORATORY DATA: WBC 6.9, hemoglobin 8.5, hematocrit 26.5, platelet is 209. Sodium 148, potassium 4, BUN 52, creatinine 1.2, sugar 158. AST and ALT normal. TSH is 4.4. Total protein and albumin normal. Chest x-ray, cardiomegaly and congestive heart failure changes. EKG showed sinus bradycardia, 47 per minute, poor progression of R in V1 to V3. CT scan of the head showed no acute intracranial abnormalities, no significant findings to account for the clinical presentation, no significant interval change compared to prior CT scan. DIAGNOSES: Sinus bradycardia which may be related to the patient was on Coreg, congestive heart failure, hypertension, dementia, diabetes mellitus, history of fall, urinary incontinence; hypothyroidism, under control with medication. PLAN: The patient is already started on hydralazine 50 mg every 8 hours, aspirin 81 mg daily, ferrous sulfate 324 b.i.d., insulin as ordered, Lipitor 40 daily, meropenem IV every 8 hours, amlodipine 10 mg daily, linezolid 600 mg IV every 12 hours. The patient getting sodium chloride 150 mL an hour. Given the chest x-ray, the patient looks like in congestive heart failure, we will stop IV normal saline 150 mL an hour and we will start Lasix 40 IV now and daily, and we will give potassium 20 daily. We will hold Coreg for the time being because of bradycardia, and we will monitor the patient and we will follow with you. Alayna Desai MD
[2017-09-05 06:22] LABS: HEMOGLOBIN 8.5 g/dL (12.0-16.0); MEAN CORPUSCULAR HEMOGLOBIN 26.7 pg (25.0-35.0); MEAN CORPUSCULAR HGB CONC 29.8 g/dl (31.0-37.0); MEAN PLATELET VOLUME 11.5 fl (7.0-11.0); RBC 3.18 10^6/uL (3.5-6.1); WHITE BLOOD COUNT 9.1 10^3/ul (4.5-11.0)
[2017-09-05] MEDS: Meropenem IV 1 gm in NS 50 ML IVPB SCH ×2 (06:42→21:06)
[2017-09-05 06:51] LABS: MEAN CELL VOLUME 89.6 fl (80.0-105.0)
[2017-09-05] MEDS: Insulin Reg-LOW-Coverage SC SCH ×4 (07:45→21:40)
--- NOTE | 2017-09-05 08:50 | CON ---
DATE: 09/04/2017 The patient seen early this morning in room 262, bed 2. CHIEF COMPLAINT: Hypothermia, the patient's temperature is 88 rectally and time is one day duration. HISTORY OF PRESENT ILLNESS: This is a 72-year-old female, half-way patient, with dementia, hypertension and diabetes mellitus who presented to the Emergency Room because of a syncopal episode, half-way prior to the admission, the patient fell from the wheelchair with no trauma. No chest pain and there were no fevers or chills and no nausea or vomiting, diarrhea with no abdominal pain and no chest pain, shortness of breath or other complaints. This morning, the patient's condition deteriorated and the patient's temperature was taken rectally and it was 88. An Infectious Disease consultation requested for hypothermia. REVIEW OF SYSTEMS: A 12-point review of systems is performed. PAST MEDICAL HISTORY: Significant for diabetes mellitus, hypertension and dementia and hyperlipidemia, peripheral edema, coronary artery disease, urinary tract infection, osteoarthritis. PAST SURGICAL HISTORY: Significant for toe amputation. The patient had a hysterectomy in the past and the patient also had a PICC line in the past. ALLERGIES: THE PATIENT IS ALLERGIC TO NIFEDIPINE. MEDICATIONS: At the half-way include oxycodone, , Norvasc, Carafate, insulin. PHYSICAL EXAMINATION: VITAL SIGNS: The patient is in bed, appearing chronically ill with a temperature of 88, pulse is 61, respiratory rate of 20, blood pressure is 114/40. Examination of oxygenation is 94% O2 saturation and that is on nasal cannula. HEENT: Examination is unremarkable. NECK: Supple. LUNGS: Have decreased breath sounds. HEART: Exam is normal S1, S2. ABDOMEN: Examination is soft, nontender. No rebound or guarding. DATA: Laboratory examination reveals a white count of 6.9, hemoglobin of 8.5 and platelets of 209; 76% granulocytosis and coagulation is noted. ABGs are reviewed. The patient's creatinine is 1.2 and random glucose is 150. Chloride is 114, bicarb is 20 with an anion gap of 18. Urinalysis reveals 2 to 5 wbc's. There are many bacteria, small leukocyte esterase and blood cultures have been ordered. Urine cultures have been ordered. The patient has had a chest x-ray, the results are not available. The patient also had a CT scan of the head, those results are not available. ASSESSMENT AND PLAN: This is a 72-year-old female, half-way patient with diabetes mellitus, hypertension, dementia with hypothermia, bradycardia, hypoxia and renal insufficiency and admitted with now what appears to be positive chest x-ray chest x-ray has not been read officially with what appears to be a severe sepsis with right lower lobe healthcare-associated pneumonia, rule out gram-positive versus gram-negative shelby and we will start the patient on Zyvox, meropenem and order procalcitonin, blood and urine cultures and initial workup results. We will ask Dr. Terry, Pulmonary consultation and we will follow closely with you. Asim George MD
--- NOTE | 2017-09-05 08:54 | HP ---
CHIEF COMPLAINT: Fall, altered mental status. HISTORY OF PRESENT ILLNESS: Ms. Tamy Abbott is a 72-year-old female with past medical history of diabetes mellitus, hypertension, came to the emergency department for evaluation of syncopal episode at [facility] prior to arrival, and was having altered mental status. As per family, patient fell from wheelchair during the episode, but denies any head trauma. Upon questioning, patient is unable to explain the episode because patient has advanced dementia and now has altered mental status. Family states that patient has been acting confused for the past couple of days and requests medical evaluation. Patient denies any headache, fever, chills, nausea, vomiting, or diarrhea. I saw the patient in the room. Son was standing at the bedside. All questions answered. 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 FAMILY HISTORY: Father and mother, noncontributory. HABITS: Never smoked. No drugs. No ethanol. ALLERGIES: THE PATIENT IS ALLERGIC TO NIFEDIPINE. HOME MEDICATIONS: Oxycodone. REVIEW OF SYSTEMS: Patient was seen and examined at the bedside in the room; sleepy, arousable, moving all four extremities. She is not able to obey simple orders. Son was at the bedside. Length of time discussion done, all questions answered. PHYSICAL EXAMINATION: VITAL SIGNS: Temperature 98.8, pulse 47, respiratory rate 20, blood pressure 115/54, pulse oximetry 96. HEENT: Head normocephalic, atraumatic. Eyes PERRLA. Extraocular muscles intact. Conjunctivae clear. Nose patent. Mucous membrane moist. NECK: Supple. No carotid bruit. No JVD or thyromegaly. CHEST: Bilaterally symmetrical. HEART: S1 and S2 positive. LUNGS: Clear to auscultation. ABDOMEN: Soft. Bowel sounds present. No organomegaly. EXTREMITIES: No edema. No cyanosis. NEUROLOGICAL: The patient is awake and alert. Moving all 4 extremities. No focal deficits. LABORATORY DATA: White blood cells 6.9, hemoglobin 8.5, hematocrit 26.5, platelet 209. Sodium 148, potassium 4, BUN 52, creatinine 1.2, glucose 150. ASSESSMENT AND PLAN: Ms. Tamy Abbott is a 72-year-old lady with anemia, status post blood transfusion, hyperchloremia, renal insufficiency, hyperglycemia, came with syncopal attack, dementia, symptomatic bradycardia, now she is getting hypothermia, look like going in to septic shock, diabetes mellitus, foot gangrene, gastric ulcer, history of hematuria, urinary tract infection in the past, history of labial abscess in the past requiring drainage, amputation of the left third and fourth digits. Maybe her severe anemia is due to gastric ulcers, maybe sepsis - origin could be from the osteomyelitis of the foot, congestive heart failure, look like high output failure. Discussion done with the patient's son regarding broad-spectrum antibiotics. Follow with TSH, hydrocortisone as per Dr. Terry. We will follow up. Deisy Gilman MD [email or web address]
[2017-09-05] MEDS: Potassium Chloride 20 mEq/15 ml LIQ UD PO SCH (09:37)
[2017-09-05] MEDS: Linezolid 600 mg in D5W 300 ml 600 MG/300 ML BAG IVPB SCH ×2 (09:55→21:06)
[2017-09-05] MEDS: Pantoprazole 40 mg EC Tab PO SCH (10:04)
[2017-09-05] MEDS: Clotrimazole 1% Cream(30 gm) TOP SCH (11:11)
--- NOTE | 2017-09-05 16:11 | PN ---
DATE: 09/05/2017 SUBJECTIVE: The patient is in bed, in no acute distress. PHYSICAL EXAMINATION: VITAL SIGNS: Temperature is 97, blood pressure is 117/60, respiratory rate of 18. HEENT: Unremarkable. NECK: Supple. LUNGS: Have decreased breath sounds. HEART: Normal S1, S2. ABDOMEN: Soft, nontender. LABORATORY DATA: Reveals a white count of 6.9, hemoglobin of 8, platelets of 209 and chemistries reveal creatinine is 1.2. Urinalysis is noted. Microbiology reveals a gram-negative shelby in the urine. The blood cultures are negative. Review of orders reveals the patient to be on meropenem and Zyvox. Dr. Gilman's history and physical examination is reviewed. Dr. Terry's consultation is also reviewed. ASSESSMENT AND PLAN: This is a 72-year-old female, correction patient, with a history of diabetes mellitus, hypertension, dementia, hypothermia, bradycardia, hypoxia, and renal insufficiency, admitted now with severe sepsis with right lower lobe healthcare-associated pneumonia, gram-positive versus gram-negative shelby. The patient also with a gram-negative shelby, urine as the source, on Zyvox and meropenem day #2 with negative blood cultures. The urinalysis only had 2 to 5 wbc's and procalcitonin is less than 0.05. We will follow closely with you. The patient did have a history of foot gangrene and a history of Vandana albicans fungemia. We will check on the final blood cultures. Asim George MD
--- NOTE | 2017-09-05 17:03 | PN ---
DATE: 09/05/2017 LOCATION: The patient in room 262, bed 2. REASON FOR CONSULTATION: Bradycardia, history of fall. SUBJECTIVE: The patient is conscious, alert, but confused. No history of chest pain, palpitation, or shortness of breath. The patient was admitted with fall at snf and was found to have also bradycardia. The patient was also on Coreg 25 b.i.d. PHYSICAL EXAMINATION: VITAL SIGNS: Blood pressure 117/62, respirations 20, pulse is 80. The patient is afebrile. HEENT: Head is normocephalic. Eyes: Pupils normal. Conjunctivae slightly pale. NECK: JVP low. Carotids equal. THORAX: AP diameter normal. LUNGS: Clear. CARDIOVASCULAR: S1 and S2. ABDOMEN: Soft. No tenderness. No organomegaly. Bowel sounds normal. EXTREMITIES: No clubbing. No cyanosis. LABORATORY DATA: WBC 9.1, hemoglobin 8.5, hematocrit 28.5, platelet 215. Random sugar 172, glucose 98. TSH 4.44, which is normal. DIAGNOSES: Sinus bradycardia, which was related to Coreg. Since we stopped the Coreg, heart rate has come up. Congestive heart failure, hypertension, dementia, diabetes mellitus, history of fall, urinary incontinence, hypothyroidism which is under control with medications. The patient is on hydralazine 50 every 8 hours, aspirin 81 daily, ferrous sulfate 324 b.i.d., Lasix 40 IV daily, insulin as ordered, meropenem IV every 12 hours, amlodipine 10 mg daily, potassium 20 daily, Protonix 40 daily, hydrocortisone 50 mg IV every 8 hours, linezolid 600 mg IV every 12 hours. We will continue present therapy. We will follow up. Alayna Desai MD
[2017-09-05] MEDS: Insulin Detemir 100 units/ml Vial (Levemir) SC SCH (21:45)
--- NOTE | 2017-09-05 23:45 | PN ---
DATE: 09/05/2017 SUBJECTIVE: This 72-year-old female was seen for a right foot ulceration. The patient was seen at bedside with her son who is very concerned about his mother. He is very upset because she apparently has not eaten anything today. Her lunch was still on the tray and the dinner was just brought. PAST MEDICAL HISTORY: The patient's past medical history is positive for hypertension, diabetes. Apparently, she fell out of the wheelchair at the detention and was brought to the emergency room because of the syncopal episode. The patient is familiar to me from her last admission where I did take care of an ulceration to the right foot at which time she did have osteomyelitis and she also had fungus in the blood. She was sent back to the detention. IV antibiotics as per the Infectious Disease. The patient's past medical history is also positive for coronary artery disease and she now has pneumonia as well as urinary tract infection and as noted above, she also has had osteomyelitis to the right foot. PAST SURGICAL HISTORY: Positive for fifth ray amputation, which she had by Dr. Agarwal at [facility]. ALLERGIES: THE PATIENT HAS A DRUG ALLERGY TO NIFEDIPINE. PHYSICAL EXAMINATION: VITAL SIGNS: The patient's vital signs were reviewed. Her temperature is 97.5, her pulse is 76, blood pressure is 136/64, respirations are 18. MEDICATIONS: Her medications are noted on the MAR. She is presently taking insulin coverage and she is on clotrimazole, meropenem, Zyvox, and other medications as noted on the MAR. The patient's microbiology in the urine is Gram-negative shelby. Preliminary, the blood cultures were no growth. LABORATORY DATA: The patient's labs were also reviewed. Her white blood cell count is 9.1, the H and H is 8.5, 28.5, and the platelets are 215. Her chemistry was reviewed. Her BUN and creatinine upon admission was 52, 1.2, random glucose was 150. Clinically, upon removal of the sock, there is no dressing on the wound. The wound was exposed to the sock. There is a wound on the lateral foot measuring approximately 7 x 4 x 0.1 cm. There is no cellulitis. There is no pus. There is no drainage on the sock. The tissue was a pale granulation tissue. There is no undermining. There is no sinus tract and there is no signs of any infection from the foot wound at this time. On her right heel, there appears to be some scaling skin with a possible stage II ulceration without any signs of infection. The left heel is intact at this time. ASSESSMENT AND PLAN: Diabetic with peripheral vascular disease and a healing stage IV ulceration to the left lateral foot, stage II on the right heel and plan of treatment is local wound care. Today, we are going to cleanse it with soap and water since it was sitting in the sock. Going forward, the wound care will be for normal saline, Xeroform, abdominal pad and the Bola. We did order Multi Podus boots and the patient will be seen and followed. I spoke with nursing about the food issues. She states that they did try to feed the patient twice today and the patient spit the food out and this was discussed with her son. Eboni Anderson DPM
--- NOTE | 2017-09-06 00:30 | CON ---
DATE: 09/05/2017 CHIEF COMPLAINT: Syncope. HISTORY OF PRESENT ILLNESS: This is a 72-year-old women, who is known to me from previous admission in the past as well as to my other colleagues with history of type 2 diabetes mellitus, hypertension, anemia, requiring transfusion in the past, history of foot gangrene with left amputations, who recently had an MRI of the brain which was in 07/2017 which was unremarkable for anything acute as well as an EGD that showed mild diffuse slowing otherwise, but no epileptiform activity, who had a syncopal event while in the wheelchair at the intermediate. She was feeling weak, tired, and fatigued. Patient seemed also dehydrated. Patient had a hemoglobin of 8.5 and had transient low systolic and diastolic blood pressures. Urine cultures shows gram-negative rods in the urine. She opens eyes to command and withdraws to noxious stimulus. PAST MEDICAL HISTORY: As above. SOCIAL HISTORY: No illicit drug use, smoking, or EtOH abuse. ALLERGIES: ALLERGIC TO NIFEDIPINE. MEDICATIONS: Reviewed by nurses' reconciliation sheet. FAMILY HISTORY: Noncontributory. REVIEW OF SYSTEMS: A 14-point review of systems is negative except in the HPI. LABORATORY DATA: Blood sugar today is 158. Elevated cortisol level of 29.8. PHYSICAL EXAMINATION: VITAL SIGNS: Temperature 97.5, pulse rate of 76, blood pressure 136/64, respiratory rate 18. GENERAL: The patient is lying in bed, sleepy and tired, but arousable. HEENT: Atraumatic, normocephalic. PERRLA. Extraocular muscles intact, has very macroglossia and tongue looks dry. LUNGS: Clear to auscultation. No adventitious sounds. HEART: S1, S2. Normal rate and rhythm. No murmurs, rubs or gallops.. ABDOMEN: Soft, nontender, and nondistended. Bowel sounds are present. EXTREMITIES: No clubbing. No cyanosis. Peripheral pulses 2+ felt bilaterally. NEUROLOGIC: The patient is drowsy, but arousable, follows simple commands. Cranial nerves II through XII are intact. Motor exam: Slight increased tone throughout. Spontaneous movements of all extremities are seen. No pronator seen . Sensory exam: Decreased light touch and pinprick up to the calves bilaterally. Decreased vibration at the toes. Coordination and gait deferred for now. ASSESSMENT AND PLAN: This is a 72-year-old -[place] woman with history of hypertension, type 2 diabetes mellitus, hypercholesterolemia, history of urinary incontinence, history of amputation of the left third and fourth toes, who comes in for transient syncopal event, most likely vasovagal in nature. Recently had an MRI of the brain, EEG, which was unremarkable for anything acute. She also has severe anemia probably secondary to gastric ulcers. At this time, she has an elevated cortisol level and seems mildly dehydrated. Her syncope could be secondary to vasovagal, superimposed transient cerebral hypoperfusion state. At this time, we recommend, 1. Monitor electrolytes and correct accordingly. 2. Keep the systolic blood pressure 130s to 140s and diastolics 70s to 80s. 3. Aspirin 81 mg and Lipitor 40 mg for stroke prevention. 4. Keep blood sugars between 140 to 180. 5. PT/OT assessment. Thank you for this consult. Harry Burks MD
[2017-09-06] MEDS: Albuterol-Ipratrop 3 mg / 0.5 (3 ml) UD IH SCH ×5 (01:03→20:40)
--- NOTE | 2017-09-06 02:46 | PN ---
DATE: 09/05/2017 SUBJECTIVE: The patient was seen and examined on 09/05/2017. Daughter was standing on the bedside, making mother's . The patient was doing better. More awake and alert. Temperature is stable. Yesterday, she had attacks of hypothermia and bradycardia. No nausea or vomiting. No headache. No chest pain. No palpitation. PHYSICAL EXAMINATION: VITAL SIGNS: Temperature 170/92, respiratory rate 20, pulse 80. HEENT: Head normocephalic, atraumatic. Eyes PERRLA. Extraocular muscles intact. Conjunctivae clear. Nose patent. Mucous membrane moist. NECK: Supple. No carotid bruit. No JVD or thyromegaly. CHEST: Bilaterally symmetrical. HEART: S1 and S2 positive. LUNGS: Clear to auscultation. ABDOMEN: Soft. Bowel sounds positive. No organomegaly. EXTREMITIES: No edema. No cyanosis. NEUROLOGICAL: The patient is awake, alert, but getting attacks of confusion. LABORATORY DATA: White blood cells 9.1, hemoglobin 8.5, hematocrit 28.5, platelets 215. 172, glucose 98, TSH is 4.44. MEDICATIONS: Hydralazine, aspirin, ferrous sulfate, Lasix, meropenem, amlodipine, potassium, Protonix, hydrocortisone, linezolid. ASSESSMENT AND PLAN: Ms. Tamy Abbott, 71-year-old lady, well known to me from multiple admissions and from [facility]. Has some sinus bradycardia, which may be due to Coreg. Since we stopped the Coreg, heart rate is coming up. Relocation Services Specialist is on the case. Congestive heart failure, hypertension, dementia, diabetes mellitus, history of fall, urinary incontinence, hypothyroidism. Getting thyroid medicine, getting blood pressure medicine also. Sepsis. Urine has gram-negative rods. Infectious Disease is on the case. GI, deep venous thrombosis prophylaxis. Length of time discussion done with the patient's daughter. All questions answered and discussion done with the patient's nurse. We will follow up. Deisy Gilman MD
--- NOTE | 2017-09-06 04:00 | PN ---
DATE: 09/05/2017 REFERRING PHYSICIAN: Deisy Gilman MD SUBJECTIVE: She is lying in the bed, lethargic, dry mouth, arousable. No hemoptysis, no emesis, no hematuria, no diarrhea, no leg swelling. OBJECTIVE: GENERAL: In no acute distress. VITAL SIGNS: Temperature is 98, heart rate is 75, respiratory rate is 18, blood pressure 147/77, pulse ox 95% on nasal cannula. HEENT: Dry mucous membrane. Mallampati score is 4. NECK: Supple. No JVD. LUNGS: Have a few scattered rhonchi. Fair airflow. HEART: S1, S2. ABDOMEN: Soft, nontender, no organomegaly. EXTREMITIES: No edema. NEUROLOGIC: Sleepy, arousable. Follows simple commands. MEDICATIONS: She is on hydralazine 50 mg at bedtime, Carafate 1 g at bedtime, DuoNeb q.4 hours, Ecotrin 81 mg daily, ferrous sulfate 324 mg twice a day, insulin coverage, Lasix 40 mg daily, Levemir 10 units subcu at bedtime, Lipitor 40 mg daily, meropenem 1 g q.12 hours, Norvasc 10 mg daily, potassium supplement 20 mEq daily, Protonix 40 mg daily, Solu-Cortef 50 mg q.8 hours, Tylenol p.r.n., Zyvox 600 mg q.12 hours. LABORATORY DATA: Shows hemoglobin 8.5, hematocrit 28.5, WBC 9.1, platelet is 215. Had a blood gases done yesterday shows pH 7.30, pCO2 of 42, O2 61, that is on nasal cannula. Blood sugar this morning is 172, TIBC 238, ferritin 437. Vitamin B12 was 485. Urine culture has gram-negative rods. Blood culture, there is no growth. IMPRESSION AND PLAN: Severe anemia, probably secondary to gastric ulcers, may have sepsis, has a history of foot ulcer, hypertension, diabetes, hypothyroid, congestive heart failure. From a Pulmonary point of view, she may have sleep apnea syndrome. We will place her on BiPAP 10/6 with 35% oxygen while sleeping. Keep head at 45 degrees. Ordered a cortisol level, which is pending. Continue antibiotics covering healthcare-associated organism. Follow up labs in the morning. Thank you and we will follow with you. Alayna Terry MD [facility] # [id number]
[2017-09-06 06:30] LABS: HEMOGLOBIN 8.9 g/dL (12.0-16.0); MEAN CORPUSCULAR HEMOGLOBIN 26.3 pg (25.0-35.0); MEAN PLATELET VOLUME 10.5 fl (7.0-11.0); RBC 3.39 10^6/uL (3.5-6.1); RED CELL DISTRIBUTION WIDTH 18.8 % (11.5-14.5); WHITE BLOOD COUNT 13.3 10^3/ul (4.5-11.0)
[2017-09-06 06:47] LABS: MEAN CELL VOLUME 84.7 fl (80.0-105.0)
[2017-09-06 07:25] LABS: ALB/GLOB RATIO 1.1 (1.1-1.8); ALBUMIN 3.6 g/dL (3.0-4.8); CALCIUM 8.9 mg/dL (8.4-10.5)
[2017-09-06] MEDS: Insulin Reg-LOW-Coverage SC SCH ×5 (07:30→22:02)
[2017-09-06] MEDS: Clotrimazole 1% Cream(30 gm) TOP SCH (09:46)
[2017-09-06] MEDS: Meropenem IV 1 gm in NS 50 ML IVPB SCH ×2 (09:47→22:07)
[2017-09-06] MEDS: Potassium Chloride 20 mEq/15 ml LIQ UD PO SCH (09:48)
[2017-09-06] MEDS: Pantoprazole 40 mg EC Tab PO SCH (09:48)
[2017-09-06] MEDS: Linezolid 600 mg in D5W 300 ml 600 MG/300 ML BAG IVPB SCH ×2 (09:49→22:07)
[2017-09-06] MEDS ORDERED: Vitamin A/D oint 60G TP PRN (10:02)
[2017-09-06] MEDS ORDERED: Vitamins A & D Oint UD Foilpak TOP PRN (10:30)
--- NOTE | 2017-09-06 13:09 | PN ---
DATE: 09/06/2017 SUBJECTIVE: The patient was seen earlier today in no acute distress in room 263. PHYSICAL EXAMINATION: VITAL SIGNS: Temperature is 98, blood pressure is 160/80 with a respiratory rate of 18 and heart rate of 70. HEENT: Examination of HEENT is unremarkable. NECK: Supple. LUNGS: Have decreased breath sounds. HEART: Normal S1 and S2. ABDOMEN: Soft, nontender. No rebound or guarding. LABORATORY DATA: Laboratory examination reveals a white count of 13,000, hemoglobin of 8, platelets of 235. Chemistries reveals a BUN of 65, creatinine of 1.6. Urinalysis is noted. Microbiology reveals E. coli in the urine. The blood cultures have no growth hours. E. coli in the urine is ESBL E. coli. Review of orders reveals the patient to be on meropenem, Zyvox. Dr. Terry's note is reviewed from yesterday. Dr. Gilman's note is reviewed from yesterday. Dr. Anderson's note is reviewed. ASSESSMENT AND PLAN: A 72-year-old with a history of diabetes mellitus, hypertension, dementia, hypothermia, bradycardia, hypoxia, renal insufficiency. Admitted with severe sepsis, right lower lobe healthcare-associated pneumonia, gram-positive versus gram-negative shelby and extended-spectrum beta-lactamase in the urine, currently on Zyvox and meropenem day #3. The extended-spectrum beta-lactamase Escherichia coli in urine probably not a pathogen which urinalysis is unremarkable. The procalcitonin is reported to be here less than 0.05. We will repeat urinalysis and urine culture and continue the short course of antibiotics for 7 days. Asim George MD
[2017-09-06 13:41] LABS: PH,URINE 5.5 (4.7-8.0); URINE BILIRUBIN NEGATIVE (NEGATIVE); URINE BLOOD NEGATIVE (NEGATIVE); URINE GLUCOSE (UA) NEGATIVE (NEGATIVE); URINE LEUKOCYTE ESTERASE NEGATIVE Leu/uL (NEGATIVE); URINE PROTEIN NEGATIVE mg/dL (<30 mg/dL); URINE UROBILINOGEN 0.2 E.U./dL (<1 E.U./dL)
[2017-09-06 13:45] LABS: URINE APPEARANCE CLEAR (CLEAR); URINE COLOR YELLOW (YELLOW)
--- NOTE | 2017-09-06 14:04 | CP.PCM.PN ---
<Sumaya Lieberman - Last Filed: 09/06/17 14:07> Subjective - Date & Time of Evaluation Date of Evaluation: 09/06/17 Time of Evaluation: 14:01 - Subjective Subjective: 72 y/o female seen at bedside this afternoon for left lateral foot ulceration. Pt exhibits altered mental status and continues to repeat 1-2 word statements. She is able to deny that she is having pain in the ulcer site. Resting comfortably in bed at time of visit in NAD, with multipodus boots in place. She denies having any F/C/N/V/CP/SOB Objective - Vital Signs/Intake and Output Vital Signs (last 24 hours): Temp Pulse Resp BP Pulse Ox 98.3 F 78 18 160/84 H 96 09/06/17 06:00 09/06/17 10:00 09/06/17 06:00 09/06/17 09:50 09/06/17 06:00 Intake and Output: 09/06/17 09/06/17 06:59 18:59 Intake Total 60 350 Output Total 400 900 Balance -340 -550 - Medications Medications: Current Medications Acetaminophen (Tylenol 325mg Tab) 650 mg PO Q4H PRN PRN Reason: pain fever Albuterol/Ipratropium (Duoneb 3 Mg/0.5 Mg (3 Ml) Ud) 3 ml IH [id number] [facility] Last Admin: 09/06/17 11:02 Dose: 3 ml Amlodipine Besylate (Norvasc) 10 mg PO DAILY [facility] Last Admin: 09/06/17 09:47 Dose: 10 mg Aspirin (Ecotrin) 81 mg PO DAILY [facility] Last Admin: 09/06/17 09:46 Dose: 81 mg Atorvastatin Calcium (Lipitor) 40 mg PO DIN [facility] Last Admin: 09/05/17 18:13 Dose: 40 mg Clotrimazole (Lotrimin 1%) 0 gm TOP DAILY [facility] Last Admin: 09/06/17 09:46 Dose: 1 applic Ferrous Sulfate (Feosol) 324 mg PO BID [facility] Last Admin: 09/06/17 09:46 Dose: 324 mg Furosemide (Lasix) 40 mg IVP DAILY [facility] Last Admin: 09/06/17 09:46 Dose: 40 mg Hydralazine HCl (Apresoline) 50 mg PO Q8H [facility] Last Admin: 09/06/17 09:50 Dose: 50 mg Hydrocortisone Sodium Succinate (Solu-Cortef) 50 mg IVP Q8 [facility] Last Admin: 09/06/17 13:19 Dose: 50 mg Linezolid (Zyvox 600mg/300ml D5w) 600 mg in 300 mls @ 200 mls/hr IVPB Q12 [facility] PRN Reason: Protocol Stop: 09/12/17 10:01 Last Admin: 09/06/17 09:49 Dose: 200 mls/hr Meropenem (Merrem Iv 1 Gm Premix) 50 mls @ 100 mls/hr IVPB Q12 [facility] PRN Reason: Protocol Stop: 09/12/17 07:31 Last Admin: 09/06/17 09:47 Dose: 100 mls/hr Insulin Detemir (Levemir) 10 unit SC HS [facility] Last Admin: 09/05/17 21:45 Dose: 10 units Insulin Human Regular (Humulin R Low) 0 units SC ACHS [facility] PRN Reason: Protocol Last Admin: 09/06/17 13:18 Dose: 2 units Pantoprazole Sodium (Protonix Ec Tab) 40 mg PO DAILY [facility] Last Admin: 09/06/17 09:48 Dose: 40 mg Potassium Chloride (Potassium Chloride Oral Soln) 20 meq PO DAILY [facility] Last Admin: 09/06/17 09:48 Dose: 20 meq Sucralfate (Carafate Tab) 1 gm PO HS [facility] Last Admin: 09/05/17 21:05 Dose: Not Given Vitamin A (Vitamin A & D Oint Ud Foilpak) 1 ea TOP Q8 PRN PRN Reason: Dry skin - Labs Labs: 09/06/17 06:00 09/06/17 06:00 PT 13.1 SECONDS (9.4-12.5) H 09/03/17 23:00 INR 1.15 (0.93-1.08) H 09/03/17 23:00 APTT 50.8 Seconds (25.1-36.5) H 09/03/17 23:00 - Constitutional Appears: Well, Non-toxic, No Acute Distress - Extremities Exam Additional comments: Left lower extremity focused exam: Vasc: DP and PT pulses palpable 1/4. Temperature gradient warm to cool. CFT < 3 sec x 3 digits. No pedal edema is noted Derm: Clean open ulceration measuring approximately 6 cm x 3 cm x 0.2 cm to lateral forefoot with 80% granular and 20% wound base. No lukas wound erythema, no tunneling or undermining present, no malodor, no streaking, no purulence, No other clinical signs of infection. Wound appears stable at this time. Neuro: Epicritic and protective sensation severely diminished B/L Ortho: No tenderness to palpation of lateral forefoot ulceration. No other gross deformities noted - Neurological Exam Neurological Exam: Alert, Awake, Oriented x3 - Psychiatric Exam Psychiatric exam: Normal Affect, Normal Mood Assessment and Plan - Assessment and Plan (Free Text) Assessment: 72 y/o female with left lateral foot diabetic ulceration Plan: Pt seen and evaluated with attending Dr. Trujillo Wound cleaned with saline and dressed with xeroform, ABD, DSD Multipodus boots reapplied. To be worn all times in bed Continue IV abx per ID - Zyvox, Merrem Will continue to follow pt and perform daily local wound care <Harrison Trujillo - Last Filed: 09/09/17 10:58> Objective - Vital Signs/Intake and Output Vital Signs (last 24 hours): Temp Pulse Resp BP Pulse Ox 98.2 F 70 20 126/69 96 09/08/17 14:00 09/08/17 14:00 09/08/17 14:00 09/08/17 14:00 09/08/17 14:00 - Labs Labs: 09/08/17 06:10 09/08/17 06:10 PT 13.1 SECONDS (9.4-12.5) H 09/03/17 23:00 INR 1.15 (0.93-1.08) H 09/03/17 23:00 APTT 50.8 Seconds (25.1-36.5) H 09/03/17 23:00 Attending/Attestation - Attestation I have personally seen and examined this patient.: Yes I have fully participated in the care of the patient.: Yes I have reviewed all pertinent clinical information, including history, physical exam and plan: Yes
--- NOTE | 2017-09-06 16:36 | PN ---
DATE: 09/06/2017 REASON FOR CONSULTATION AND FOLLOWUP: Bradycardia, history of fall. SUBJECTIVE: The patient denies any chest pain, shortness of breath, or any palpitation. OBJECTIVE: GENERAL: Not in any apparent distress. VITAL SIGNS: Temperature afebrile, heart rate 78, blood pressure 160/84. HEENT: PERRLA. Extraocular muscles intact. NECK: Supple. No carotid bruit. No thyromegaly. CHEST: Clear to auscultation. HEART: S1 and S2, regular. ABDOMEN: Soft. EXTREMITIES: Clubbing and cyanosis negative. LABORATORY DATA: Blood workup as follows: WBC , hemoglobin 8.9, hematocrit 28.7, platelet count 235. Chemistry shows sodium 151, potassium 4.5, chloride 115, carbon dioxide 18. BUN 55, creatinine 1.6. IMPRESSION: A 72-year-old female with past medical history of dementia, hypertension, diabetes, history of fall, urinary incontinence, hypothyroidism. Admitted with uncontrolled hypertension, bradycardia, most likely secondary to Coreg. RECOMMENDATION: Discontinue Coreg. Continue hydralazine for better control of the blood pressure. Continue baby aspirin. Continue gentle diuretic. Continue atorvastatin. Continue amlodipine. Avoid rate limiting calcium channel valarie or any beta-valarie. We will follow with you. Discontinue telemetry. Monitor H and H. Continue D5 for hypernatremia and for dehydration. Thank you, Dr. Gilman/Dr. Gunn, for providing us the opportunity in taking care of the patient, Tamy Abbott. Alayna Trent MD
--- NOTE | 2017-09-06 19:49 | PN ---
DATE: 09/06/2017 PULMONARY PROGRESS NOTE REFERRING PHYSICIAN: Deisy Gilman MD OBJECTIVE: She is lying in the bed, head at 45 degrees, receiving PICC line. Tolerated BiPAP well last night, more awake and alert. No vomiting, no hematuria, no diarrhea, no leg swelling reported. OBJECTIVE: GENERAL: In no acute distress. VITAL SIGNS: Temperature is 98, heart rate is 75, respiratory rate is 20, blood pressure 160/84, pulse ox 96% on BiPAP. HEENT: Moist mucous membrane. Crowded airway. Mallampati score is 4. NECK: Supple. No JVD. LUNGS: Fair airflow with few rhonchi. HEART: S1 and S2. ABDOMEN: Soft, nontender, no organomegaly. EXTREMITIES: No edema. NEUROLOGIC: Sleepy, arousable. Follows simple command. MEDICATIONS: She is on hydralazine 50 mg every 8 hours, Carafate 1 g at bedtime, DuoNeb every 4 hours, Ecotrin 81 mg daily, ferrous sulfate 324 mg twice a day, insulin coverage, Lasix 40 mg daily, Levemir 10 units subcu at bedtime, Lipitor 40 mg daily, meropenem 1 g IV every 12 hours, Norvasc 10 mg daily, potassium 20 mEq daily Protonix 40 mg daily, Solu-Cortef 50 mg every 8 hours, Tylenol 650 mg every 4 hours, Zyvox 600 mg every 12 hours. LABORATORY DATA: Shows hemoglobin 8.9, hematocrit 28.7, WBC 13.3, and platelets 235. Sodium 151, potassium 4.5, chloride 115, bicarbonate is 18. BUN 55, creatinine 1.6. Glucose 233. Calcium 8.9. AST is 9, ALT 22, alk phos is 119. Albumin is 3.6. Microbiology: Urine culture has E. coli. IMPRESSION AND PLAN: Severe anemia, probably secondary to gastric ulcers; sepsis; history of foot ulcer; hypertension; diabetes; hypothyroid; congestive heart failure; sleep apnea syndrome; urinary tract infection. Case discussed with the nursing staff. We will decrease Solu-Cortef to 20 mg every 12 hours. Continue antibiotics. Encourage BiPAP use. Avoid sedatives. Follow up labs in the morning. Thank you and we will follow with you. Alayna Terry MD [facility] # [id number]
[2017-09-06] MEDS: Insulin Detemir 100 units/ml Vial (Levemir) SC SCH (22:05)
[2017-09-07] MEDS: Albuterol-Ipratrop 3 mg / 0.5 (3 ml) UD IH SCH ×6 (00:40→20:25)
[2017-09-07 07:08] LABS: BASO # 0.01 K/mm3 (0.0-2.0); BASO % 0.1 % (0.0-3.0); EOS % 0.1 % (1.5-5.0); GRAN # 11.73 (1.4-6.5); GRAN % 84.5 % (50.0-68.0); HEMOGLOBIN 8.8 g/dL (12.0-16.0); LYMPH # 1.2 (1.2-3.4); LYMPH % 8.9 % (22.0-35.0); MEAN CELL VOLUME 83.9 fl (80.0-105.0); MEAN CORPUSCULAR HEMOGLOBIN 26.3 pg (25.0-35.0); MEAN CORPUSCULAR HGB CONC 31.3 g/dl (31.0-37.0); MEAN PLATELET VOLUME 10.2 fl (7.0-11.0); MONO # 0.9 (0.1-0.6); MONO % 6.4 % (1.0-6.0); RBC 3.35 10^6/uL (3.5-6.1); RED CELL DISTRIBUTION WIDTH 18.7 % (11.5-14.5); WHITE BLOOD COUNT 13.9 10^3/ul (4.5-11.0)
[2017-09-07] MEDS: Insulin Reg-LOW-Coverage SC SCH ×4 (08:28→21:49)
[2017-09-07] MEDS: Meropenem IV 1 gm in NS 50 ML IVPB SCH ×2 (10:30→22:26)
[2017-09-07] MEDS: Linezolid 600 mg in D5W 300 ml 600 MG/300 ML BAG IVPB SCH (10:31)
[2017-09-07] MEDS: Pantoprazole 40 mg EC Tab PO SCH (10:31)
[2017-09-07] MEDS: Clotrimazole 1% Cream(30 gm) TOP SCH (10:33)
[2017-09-07] MEDS: Potassium Chloride 20 mEq/15 ml LIQ UD PO SCH (10:36)
[2017-09-07] MEDS: Dextrose 5%/0.45% NS 1,000 ML IV SCH (10:46)
--- NOTE | 2017-09-07 11:50 | CP.PCM.PN ---
<Alfred Zelaya - Last Filed: 09/07/17 11:46> Subjective - Date & Time of Evaluation Date of Evaluation: 09/07/17 Time of Evaluation: 11:46 - Subjective Subjective: Medicine progress note for Dr. Orozco (covering for Dr. Gilman) - Jesse Zelaya PGY3 Patient seen and examined at bedside this morning. No acute overnight events or new complaints reported. Denies chest pain, palpitations, SOB. Objective - Vital Signs/Intake and Output Vital Signs (last 24 hours): Temp Pulse Resp BP Pulse Ox 97.6 F 77 20 133/57 L 98 09/07/17 06:00 09/07/17 10:45 09/07/17 06:00 09/07/17 10:45 09/07/17 06:00 Intake and Output: 09/07/17 09/07/17 06:59 18:59 Intake Total 420 Balance 420 - Medications Medications: Current Medications Acetaminophen (Tylenol 325mg Tab) 650 mg PO Q4H PRN PRN Reason: pain fever Albuterol/Ipratropium (Duoneb 3 Mg/0.5 Mg (3 Ml) Ud) 3 ml IH [id number] [facility] Last Admin: 09/07/17 11:31 Dose: 3 ml Amlodipine Besylate (Norvasc) 10 mg PO DAILY [facility] Last Admin: 09/07/17 10:31 Dose: 10 mg Aspirin (Ecotrin) 81 mg PO DAILY [facility] Last Admin: 09/07/17 10:31 Dose: 81 mg Atorvastatin Calcium (Lipitor) 40 mg PO DIN [facility] Last Admin: 09/06/17 18:00 Dose: 40 mg Clotrimazole (Lotrimin 1%) 0 gm TOP DAILY [facility] Last Admin: 09/07/17 10:33 Dose: 1 applic Ferrous Sulfate (Feosol) 324 mg PO BID [facility] Last Admin: 09/07/17 10:31 Dose: 324 mg Furosemide (Lasix) 40 mg IVP DAILY [facility] Last Admin: 09/07/17 10:32 Dose: 40 mg Hydralazine HCl (Apresoline) 50 mg PO Q8H [facility] Last Admin: 09/07/17 10:45 Dose: 50 mg Hydrocortisone Sodium Succinate (Solu-Cortef) 50 mg IVP Q12 [facility] Last Admin: 07/04/18 10:31 Dose: 50 mg Meropenem (Merrem Iv 1 Gm Premix) 50 mls @ 100 mls/hr IVPB Q12 [facility] PRN Reason: Protocol Stop: 09/12/17 07:31 Last Admin: 09/07/17 10:30 Dose: 100 mls/hr Dextrose/Sodium Chloride (Dextrose 5%/0.45% Ns 1000 Ml) 1,000 mls @ 50 mls/hr IV .Q20H [facility] Last Admin: 09/07/17 10:46 Dose: 50 mls/hr Insulin Detemir (Levemir) 10 unit SC HS [facility] Last Admin: 09/06/17 22:05 Dose: 10 units Insulin Human Regular (Humulin R Low) 0 units SC ACHS [facility] PRN Reason: Protocol Last Admin: 09/07/17 08:28 Dose: 2 units Pantoprazole Sodium (Protonix Ec Tab) 40 mg PO DAILY [facility] Last Admin: 09/07/17 10:31 Dose: 40 mg Potassium Chloride (Potassium Chloride Oral Soln) 20 meq PO DAILY [facility] Last Admin: 09/07/17 10:36 Dose: 20 meq Sucralfate (Carafate Tab) 1 gm PO HS [facility] Last Admin: 09/06/17 22:01 Dose: 1 gm Vitamin A (Vitamin A & D Oint Ud Foilpak) 1 ea TOP Q8 PRN PRN Reason: Dry skin - Labs Labs: 09/07/17 06:45 09/06/17 06:00 PT 13.1 SECONDS (9.4-12.5) H 09/03/17 23:00 INR 1.15 (0.93-1.08) H 09/03/17 23:00 APTT 50.8 Seconds (25.1-36.5) H 09/03/17 23:00 - Constitutional Appears: No Acute Distress - Head Exam Head Exam: ATRAUMATIC, NORMOCEPHALIC - Eye Exam Eye Exam: EOMI Pupil Exam: PERRL - ENT Exam ENT Exam: Mucous Membranes Moist - Neck Exam Neck Exam: Normal Inspection - Respiratory Exam Respiratory Exam: absent: Rales, Rhonchi, Wheezes - Cardiovascular Exam Cardiovascular Exam: RRR, +S1, +S2. absent: Gallop, JVD, Rubs - GI/Abdominal Exam GI & Abdominal Exam: Soft, Normal Bowel Sounds. absent: Distended, Firm, Guarding, Rigid, Tenderness, Rebound - Neurological Exam Neurological Exam: Alert, Awake - Psychiatric Exam Psychiatric exam: Normal Affect, Normal Mood - Skin Skin Exam: Dry, Intact, Normal Color, Warm Assessment and Plan - Assessment and Plan (Free Text) Plan: 72yo female with history of HTN, DM type 2, anemia, HLD, GERD [place] [facility] syncopal episode at [place] 1. Syncope secondary to bradycardia 2. Diabetes mellitus type 2 3. Hypertension 4. Anemia 5. Hyperlipidemia 8. GERD -Head CT revealed no acute intracranial abnormalities, MRI from previous visit reviewed -CXR revealed cardiomegaly with possible cardiogenic pulmonary edema, see full report -EKG reviewed; revealed sinus bradycardia at 47bpm, QT prolongation, anterior infarct (age undetermined) see official read -Neurology and cardiology consulted -Her coreg was discontinued per cardiology recommendations due to bradycardia which has now resolved -Urine culture was significant for ESBL Ecoli, she is presently on meropenem ( day4 for a total of 7 days) per ID recommendations -She is on Lasix, hydralazine and noravasc for hypertension, protonix and carafate for GERD, insulin for diabetes and lipitor for hyperlidemia -We will continue to monitor her clinical course and treat as indicated Patient seen and case discussed/reviewed with attending, Dr. Orozco <Cricket Orozco S - Last Filed: 09/07/17 12:28> Objective - Vital Signs/Intake and Output Vital Signs (last 24 hours): Temp Pulse Resp BP Pulse Ox 97.6 F 77 20 133/57 L 98 09/07/17 06:00 09/07/17 10:45 09/07/17 06:00 09/07/17 10:45 09/07/17 06:00 Intake and Output: 09/07/17 09/07/17 06:59 18:59 Intake Total 420 Balance 420 - Medications Medications: Current Medications Acetaminophen (Tylenol 325mg Tab) 650 mg PO Q4H PRN PRN Reason: pain fever Albuterol/Ipratropium (Duoneb 3 Mg/0.5 Mg (3 Ml) Ud) 3 ml IH [id number] [facility] Last Admin: 09/07/17 11:31 Dose: 3 ml Amlodipine Besylate (Norvasc) 10 mg PO DAILY [facility] Last Admin: 09/07/17 10:31 Dose: 10 mg Aspirin (Ecotrin) 81 mg PO DAILY [facility] Last Admin: 09/07/17 10:31 Dose: 81 mg Atorvastatin Calcium (Lipitor) 40 mg PO DIN [facility] Last Admin: 09/06/17 18:00 Dose: 40 mg Clotrimazole (Lotrimin 1%) 0 gm TOP DAILY [facility] Last Admin: 09/07/17 10:33 Dose: 1 applic Ferrous Sulfate (Feosol) 324 mg PO BID [facility] Last Admin: 09/07/17 10:31 Dose: 324 mg Furosemide (Lasix) 40 mg IVP DAILY [facility] Last Admin: 09/07/17 10:32 Dose: 40 mg Hydralazine HCl (Apresoline) 50 mg PO Q8H [facility] Last Admin: 09/07/17 10:45 Dose: 50 mg Hydrocortisone Sodium Succinate (Solu-Cortef) 50 mg IVP Q12 [facility] Last Admin: 09/07/17 10:31 Dose: 50 mg Meropenem (Merrem Iv 1 Gm Premix) 50 mls @ 100 mls/hr IVPB Q12 [facility] PRN Reason: Protocol Stop: 09/12/17 07:31 Last Admin: 09/07/17 10:30 Dose: 100 mls/hr Dextrose/Sodium Chloride (Dextrose 5%/0.45% Ns 1000 Ml) 1,000 mls @ 50 mls/hr IV .Q20H [facility] Last Admin: 09/07/17 10:46 Dose: 50 mls/hr Insulin Detemir (Levemir) 10 unit SC HS [facility] Last Admin: 09/06/17 22:05 Dose: 10 units Insulin Human Regular (Humulin R Low) 0 units SC ACHS [facility] PRN Reason: Protocol Last Admin: 09/07/17 08:28 Dose: 2 units Pantoprazole Sodium (Protonix Ec Tab) 40 mg PO DAILY [facility] Last Admin: 09/07/17 10:31 Dose: 40 mg Potassium Chloride (Potassium Chloride Oral Soln) 20 meq PO DAILY [facility] Last Admin: 09/07/17 10:36 Dose: 20 meq Sucralfate (Carafate Tab) 1 gm PO HS [facility] Last Admin: 09/06/17 22:01 Dose: 1 gm Vitamin A (Vitamin A & D Oint Ud Foilpak) 1 ea TOP Q8 PRN PRN Reason: Dry skin - Labs Labs: 09/07/17 06:45 09/06/17 06:00 PT 13.1 SECONDS (9.4-12.5) H 09/03/17 23:00 INR 1.15 (0.93-1.08) H 09/03/17 23:00 APTT 50.8 Seconds (25.1-36.5) H 09/03/17 23:00 Assessment and Plan - Assessment and Plan (Free Text) Plan: Pt seen and examined by me. The labs and medications have been reviewed. I reviewed the note of the medical payment poster and I agree with it. Pt with no acute abnormality on CT head. She is off coreg for bradycardia.
--- NOTE | 2017-09-07 12:20 | CP.PCM.PN ---
<Ju Moreno - Last Filed: 09/07/17 12:50> Subjective - Date & Time of Evaluation Date of Evaluation: 09/07/17 Time of Evaluation: 12:17 - Subjective Subjective: Podiatry progress note for Dr. Trujillo 72 y/o female seen at bedside this morning for left lateral foot ulceration. Pt exhibits altered mental status. Patient states she is feeling well, and denies any acute pain. Patient denies any acute overnight events. . Resting comfortably in bed at time of visit in [facility], with multipodus boots in place. She denies having any F/C/N/V/CP/SOB Objective - Vital Signs/Intake and Output Vital Signs (last 24 hours): Temp Pulse Resp BP Pulse Ox 97.6 F 77 20 133/57 L 98 09/07/17 06:00 09/07/17 10:45 09/07/17 06:00 09/07/17 10:45 09/07/17 06:00 Intake and Output: 09/07/17 09/07/17 06:59 18:59 Intake Total 420 Balance 420 - Medications Medications: Current Medications Acetaminophen (Tylenol 325mg Tab) 650 mg PO Q4H PRN PRN Reason: pain fever Albuterol/Ipratropium (Duoneb 3 Mg/0.5 Mg (3 Ml) Ud) 3 ml IH [id number] [facility] Last Admin: 09/07/17 11:31 Dose: 3 ml Amlodipine Besylate (Norvasc) 10 mg PO DAILY [facility] Last Admin: 09/07/17 10:31 Dose: 10 mg Aspirin (Ecotrin) 81 mg PO DAILY [facility] Last Admin: 09/07/17 10:31 Dose: 81 mg Atorvastatin Calcium (Lipitor) 40 mg PO DIN [facility] Last Admin: 09/06/17 18:00 Dose: 40 mg Clotrimazole (Lotrimin 1%) 0 gm TOP DAILY [facility] Last Admin: 09/07/17 10:33 Dose: 1 applic Ferrous Sulfate (Feosol) 324 mg PO BID [facility] Last Admin: 09/07/17 10:31 Dose: 324 mg Furosemide (Lasix) 40 mg IVP DAILY [facility] Last Admin: 09/07/17 10:32 Dose: 40 mg Hydralazine HCl (Apresoline) 50 mg PO Q8H [facility] Last Admin: 09/07/17 10:45 Dose: 50 mg Hydrocortisone Sodium Succinate (Solu-Cortef) 50 mg IVP Q12 [facility] Last Admin: 09/07/17 10:31 Dose: 50 mg Meropenem (Merrem Iv 1 Gm Premix) 50 mls @ 100 mls/hr IVPB Q12 [facility] PRN Reason: Protocol Stop: 09/12/17 07:31 Last Admin: 09/07/17 10:30 Dose: 100 mls/hr Dextrose/Sodium Chloride (Dextrose 5%/0.45% Ns 1000 Ml) 1,000 mls @ 50 mls/hr IV .Q20H [facility] Last Admin: 09/07/17 10:46 Dose: 50 mls/hr Insulin Detemir (Levemir) 10 unit SC HS [facility] Last Admin: 09/06/17 22:05 Dose: 10 units Insulin Human Regular (Humulin R Low) 0 units SC ACHS [facility] PRN Reason: Protocol Last Admin: 09/07/17 08:28 Dose: 2 units Pantoprazole Sodium (Protonix Ec Tab) 40 mg PO DAILY [facility] Last Admin: 09/07/17 10:31 Dose: 40 mg Potassium Chloride (Potassium Chloride Oral Soln) 20 meq PO DAILY [facility] Last Admin: 09/07/17 10:36 Dose: 20 meq Sucralfate (Carafate Tab) 1 gm PO HS [facility] Last Admin: 09/06/17 22:01 Dose: 1 gm Vitamin A (Vitamin A & D Oint Ud Foilpak) 1 ea TOP Q8 PRN PRN Reason: Dry skin - Labs Labs: 09/07/17 06:45 09/06/17 06:00 PT 13.1 SECONDS (9.4-12.5) H 09/03/17 23:00 INR 1.15 (0.93-1.08) H 09/03/17 23:00 APTT 50.8 Seconds (25.1-36.5) H 09/03/17 23:00 - Constitutional Appears: Well, Non-toxic, No Acute Distress - Head Exam Head Exam: ATRAUMATIC, NORMOCEPHALIC - Extremities Exam Additional comments: Left lower extremity focused exam: Vasc: DP and PT pulses palpable 1/4. Temperature gradient warm to cool. CFT < 3 sec x 3 digits. No pedal edema is noted Derm: Clean open ulceration measuring approximately 6 cm x 3 cm x 0.2 cm to lateral forefoot with 80% granular and 20% fibrotic wound base. No lukas wound erythema, no tunneling or undermining present, no malodor, no streaking, no purulence, No other clinical signs of infection. Wound appears stable at this time. Neuro: Epicritic and protective sensation severely diminished B/L Ortho: No tenderness to palpation of lateral forefoot ulceration. No other gross deformities noted - Neurological Exam Neurological Exam: Alert, Awake Assessment and Plan - Assessment and Plan (Free Text) Assessment: 72 y/o female with left lateral foot diabetic ulceration Plan: Pt seen and evaluated Chart, labs and vitals reviewed; Afebrile WBC 13.9 Wound dressed with xeroform, ABD, DSD Multipodus boots reapplied. To be worn all times in bed Continue IV abx per ID - Zyvox, Merrem Will continue to follow pt and perform daily local wound care <Harrison Trujillo - Last Filed: 09/09/17 10:59> Objective - Vital Signs/Intake and Output Vital Signs (last 24 hours): Temp Pulse Resp BP Pulse Ox 98.2 F 70 20 126/69 96 09/08/17 14:00 09/08/17 14:00 09/08/17 14:00 09/08/17 14:00 09/08/17 14:00 - Labs Labs: 09/08/17 06:10 09/08/17 06:10 PT 13.1 SECONDS (9.4-12.5) H 09/03/17 23:00 INR 1.15 (0.93-1.08) H 09/03/17 23:00 APTT 50.8 Seconds (25.1-36.5) H 09/03/17 23:00 Attending/Attestation - Attestation I have personally seen and examined this patient.: Yes I have fully participated in the care of the patient.: Yes I have reviewed all pertinent clinical information, including history, physical exam and plan: Yes
--- NOTE | 2017-09-07 13:28 | PN ---
DATE: 09/07/2017 SUBJECTIVE: The patient is in room 563, bed 1. The patient is seen earlier this morning. No fevers and no chills. No nausea. PHYSICAL EXAMINATION: VITAL SIGNS: On exam, temperature is 97, blood pressure is 130/50, respiratory rate of 18, heart rate of 78. HEENT: Examination of HEENT is unremarkable. NECK: Supple. LUNGS: Have decreased breath sounds. HEART: Normal S1, S2. ABDOMEN: Soft, nontender. No rebound. No guarding. No masses. LABORATORY DATA: Laboratory examination reveals a white count of 13,900, hemoglobin of 8, platelets of 217. Coagulation is noted. Chemistries reveals a BUN of 55; creatinine is 1.6, which is increased from the 1.2. Urinalysis is noted. Microbiology reveals E. coli in the urine. The blood cultures are no growth at 3 days. The E. coli in the urine is ESBL. Dr. Terry's note from yesterday is reviewed. Dr. Trent's note is reviewed. ASSESSMENT AND PLAN: A 72-year-old with a history of diabetes mellitus, hypertension, dementia, hypothyroidism, bradycardia, hypoxia, renal insufficiency. Admitted with severe sepsis, right lower lobe healthcare-associated pneumonia, gram-positive cocci versus gram-negative shelby. The patient also with an extended-spectrum beta-lactamase in the urine, on Zyvox and meropenem day #4. The extended-spectrum beta-lactamase Escherichia coli in the urine probably not a pathogen. Urinalysis is unremarkable. Procalcitonin is less than 0.5 with a negative procalcitonin. We will discontinue the Zyvox. Waiting for a repeat urinalysis and urine culture. Most likely, we will discontinue the meropenem within the next 24 hours. The repeat urinalysis from yesterday is essentially unremarkable. Asim George MD
--- NOTE | 2017-09-07 14:02 | PN ---
DATE: 09/07/2017 REASON FOR CONSULTATION AND FOLLOWUP: Bradycardia, history of fall. SUBJECTIVE: The patient denies any chest pain, shortness of breath, or any palpitation. OBJECTIVE: GENERAL: Not in any apparent distress. VITAL SIGNS: Afebrile. Blood pressure 133/57, heart rate 77. HEENT: PERRLA. Extraocular muscles intact. NECK: Supple. No carotid bruit. No thyromegaly. CHEST: Clear to auscultation. HEART: S1 and S2, regular. ABDOMEN: Soft. EXTREMITIES: Clubbing and cyanosis negative. LABORATORY DATA: Blood workup as follows: WBC 13.9, hemoglobin 8.8, hematocrit 28.1, platelet count 217. Chemistry shows sodium 151, potassium 4.5, chloride 115, carbon dioxide 18, anion gap of 22, BUN 55, creatinine 1.6. IMPRESSION: A 72-year-old female with past medical history significant for hypertension, admitted after fall, found to be bradycardic because patient was on Coreg. Coreg was held and the patient is stable. Hypernatremia, elevated BUN and creatinine and dehydration. RECOMMENDATIONS: Continue D5. Increase p.o. intake. Discontinue Coreg. Avoid rate limiting calcium channel valarie. Continue atorvastatin. Hold Lasix for now. Give some D5 fluid. Encourage p.o. Continue amlodipine. We will follow. Continue hydralazine p.r.n. We will repeat blood workup in the morning. Thank you Dr. Gilman for providing the opportunity of taking care of the patient, Tamy Abbott. Alayna Trent MD
--- NOTE | 2017-09-07 17:38 | CP.PCM.PN ---
Subjective - Date & Time of Evaluation Date of Evaluation: 09/07/17 Time of Evaluation: 17:37 - Subjective Subjective: House Doctor Progress Note: Patient seen and assess at bedside. House doctor called to assess patient as nursing staff was concerned for possible aspiration and decreased energy compared to previous admissions. Patient is awake and alert but is mostly uncooperative with questioning. Patient does report that she has chest tightness but is uncooperative with further questioning regarding characteristics/location/duration or ROS. There are no noted abnormalities in VS and patient is HDS at this time. Chest X-Ray was obtained and noted no significant interval change from prior study on 09/03/2017. An EKG, Troponin, BNP and CMP are ordered and pending. Objective - Vital Signs/Intake and Output Vital Signs (last 24 hours): Temp Pulse Resp BP Pulse Ox 97.6 F 77 20 133/57 L 98 09/07/17 06:00 09/07/17 10:45 09/07/17 06:00 09/07/17 10:45 09/07/17 06:00 Intake and Output: 09/07/17 09/07/17 06:59 18:59 Intake Total 420 480 Balance 420 480 - Medications Medications: Current Medications Acetaminophen (Tylenol 325mg Tab) 650 mg PO Q4H PRN PRN Reason: pain fever Albuterol/Ipratropium (Duoneb 3 Mg/0.5 Mg (3 Ml) Ud) 3 ml IH [id number] [facility] Last Admin: 09/07/17 16:27 Dose: 3 ml Amlodipine Besylate (Norvasc) 10 mg PO DAILY [facility] Last Admin: 09/07/17 10:31 Dose: 10 mg Aspirin (Ecotrin) 81 mg PO DAILY [facility] Last Admin: 09/07/17 10:31 Dose: 81 mg Atorvastatin Calcium (Lipitor) 40 mg PO DIN [facility] Last Admin: 09/06/17 18:00 Dose: 40 mg Clotrimazole (Lotrimin 1%) 0 gm TOP DAILY [facility] Last Admin: 09/07/17 10:33 Dose: 1 applic Ferrous Sulfate (Feosol) 324 mg PO BID [facility] Last Admin: 09/07/17 10:31 Dose: 324 mg Furosemide (Lasix) 40 mg IVP DAILY [facility] Last Admin: 09/07/17 10:32 Dose: 40 mg Hydralazine HCl (Apresoline) 50 mg PO Q8H [facility] Last Admin: 09/07/17 10:45 Dose: 50 mg Hydrocortisone Sodium Succinate (Solu-Cortef) 25 mg IVP Q12 [facility] Meropenem (Merrem Iv 1 Gm Premix) 50 mls @ 100 mls/hr IVPB Q12 [facility] PRN Reason: Protocol Stop: 09/12/17 07:31 Last Admin: 09/07/17 10:30 Dose: 100 mls/hr Dextrose/Sodium Chloride (Dextrose 5%/0.45% Ns 1000 Ml) 1,000 mls @ 50 mls/hr IV .Q20H [facility] Last Admin: 09/07/17 10:46 Dose: 50 mls/hr Insulin Detemir (Levemir) 10 unit SC HS [facility] Last Admin: 09/06/17 22:05 Dose: 10 units Insulin Human Regular (Humulin R Low) 0 units SC ACHS [facility] PRN Reason: Protocol Last Admin: 09/07/17 12:27 Dose: 2 units Pantoprazole Sodium (Protonix Ec Tab) 40 mg PO DAILY [facility] Last Admin: 09/07/17 10:31 Dose: 40 mg Potassium Chloride (Potassium Chloride Oral Soln) 20 meq PO DAILY [facility] Last Admin: 09/07/17 10:36 Dose: 20 meq Sucralfate (Carafate Tab) 1 gm PO HS [facility] Last Admin: 09/06/17 22:01 Dose: 1 gm Vitamin A (Vitamin A & D Oint Ud Foilpak) 1 ea TOP Q8 PRN PRN Reason: Dry skin - Labs Labs: 09/07/17 06:45 09/06/17 06:00 PT 13.1 SECONDS (9.4-12.5) H 09/03/17 23:00 INR 1.15 (0.93-1.08) H 09/03/17 23:00 APTT 50.8 Seconds (25.1-36.5) H 09/03/17 23:00 - Constitutional Appears: No Acute Distress - Head Exam Head Exam: ATRAUMATIC, NORMOCEPHALIC - Eye Exam Eye Exam: EOMI, Normal appearance, PERRL - ENT Exam ENT Exam: Mucous Membranes Moist - Neck Exam Neck Exam: absent: Tenderness - Respiratory Exam Respiratory Exam: Decreased Breath Sounds (Right lower lobes), NORMAL BREATHING PATTERN. absent: Accessory Muscle Use, Chest Wall Tenderness, Clear to Ausculation Bilateral, Prolonged Expiratory Phase, Rales, Rhonchi, Wheezes, Respiratory Distress, Stridor - Cardiovascular Exam Cardiovascular Exam: REGULAR RHYTHM, RRR, +S1, +S2. absent: Bradycardia, Tachycardia - GI/Abdominal Exam GI & Abdominal Exam: Soft, Normal Bowel Sounds. absent: Tenderness - Extremities Exam Extremities Exam: absent: Calf Tenderness Additional comments: 1+pitting edema to b/l thighs; No edema noted further distally in either lower extremity - Neurological Exam Neurological Exam: Alert, Awake - Skin Skin Exam: Dry, Warm
--- NOTE | 2017-09-07 17:47 | RAD ---
HISTORY: Wheezing COMPARISON: 09/03/2017 FINDINGS: LUNGS: Stable multifocal infiltrates. PLEURA: No significant pleural effusion identified, no pneumothorax apparent. CARDIOVASCULAR: Stable cardiomegaly. OSSEOUS STRUCTURES: No significant abnormalities. VISUALIZED UPPER ABDOMEN: Normal. OTHER FINDINGS: None. IMPRESSION: No significant interval change compared to the prior examination(s).
[2017-09-07 18:50] LABS: B-TYPE NATRIURETIC PEPTIDE 8320 pg/mL (0-450); TROPONIN I < 0.01 ng/mL
--- NOTE | 2017-09-07 19:04 | PN ---
DATE: 09/07/2017 PULMONARY PROGRESS NOTE REFERRING PHYSICIAN: Deisy Gilman MD SUBJECTIVE: She is lying in the bed, head at 45 degrees. More awake and alert. Follows simple command. Tolerated BiPAP well. Still has a dry mouth. No chest pain, no nausea, no vomiting, no diarrhea reported. OBJECTIVE: GENERAL: In no acute distress. VITAL SIGNS: Temperature is 98, heart rate 77, respiratory rate is 20, blood pressure 133/57, pulse ox 98% on nasal cannula. HEENT: Dry mucous membrane. Crowded airway. NECK: Short, thick neck. LUNGS: Fair airflow with rhonchi. HEART: S1 and S2. ABDOMEN: Soft and nontender. No organomegaly. EXTREMITIES: There is no edema. NEUROLOGIC: Awake, alert and follows simple command. MEDICATIONS: She is on hydralazine 50 mg every 8 hours, Carafate 1 g at bedtime, on IV fluid D50 as needed, DuoNeb every 4 hours, Ecotrin 81 mg daily, ferrous sulfate 324 mg twice a day, Lasix 40 mg daily, Levemir 10 units subcu at bedtime, Lipitor 40 mg daily, meropenem 1 g IV every 12 hours, Norvasc 10 mg daily, potassium supplement is being given, Protonix 40 mg daily, Solu-Cortef 50 mg every 12 hours, Tylenol p.r.n., vitamin A and D ointment to affected area. LABORATORY DATA: Shows hemoglobin 8.8, hematocrit 28.1, WBC 13.9, and platelet count is 217. Blood sugar today is 223. Urine culture has E. coli and also has glassware verifier species. IMPRESSION AND PLAN: Severe anemia probably secondary to gastric ulcer, sepsis, history of foot ulcer, hypertension, diabetes, hypothyroid, congestive heart failure, sleep apnea syndrome, urinary tract infection, may have adrenal insufficiency. Pulmonary point of view, she is much more awake and alert. Continue BiPAP while sleeping. Continue inhaled bronchodilator, antibiotics as per Infectious Disease. Continue Solu-Cortef for now. Aspiration precaution. We will do swallow study. Follow up labs in the morning. Thank you and we will follow with you. Alayna Terry MD [facility] # [id number]
[2017-09-07 20:46] LABS: ALB/GLOB RATIO 1.1 (1.1-1.8); ALBUMIN 3.6 g/dL (3.0-4.8); CALCIUM 8.6 mg/dL (8.4-10.5)
[2017-09-07] MEDS: Insulin Detemir 100 units/ml Vial (Levemir) SC SCH (22:28)
[2017-09-08] MEDS: Albuterol-Ipratrop 3 mg / 0.5 (3 ml) UD IH SCH ×6 (00:23→19:26)
--- NOTE | 2017-09-08 01:46 | PN ---
DATE: 09/06/2017 SUBJECTIVE: Patient is 72-year-old female. The patient was seen and examined on the bedside on 09/06/2017, looking comfortable. No nausea, vomiting, or diarrhea. No hematuria or hematochezia. No swelling of the leg. No chest pain. No palpitation. No headache. No dizziness. PHYSICAL EXAMINATION: VITAL SIGNS: Temperature 98, heart rate 75, respiratory rate 20, blood pressure 150/84, pulse oximetry 96% on BiPAP. HEENT: Head normocephalic, atraumatic. Eyes PERRLA. Extraocular muscles intact. Conjunctivae clear. Nose patent. Mucous membrane moist. NECK: Supple. No carotid bruit. No JVD or thyromegaly. CHEST: Bilaterally symmetrical. HEART: S1 and S2 positive. LUNGS: Clear to auscultation. ABDOMEN: Soft. Bowel sounds positive. No organomegaly. EXTREMITIES: No edema. No cyanosis. NEUROLOGICAL: The patient is awake, alert, moving all 4 extremities. No focal deficits. MEDICATIONS: Hydralazine, Carafate, DuoNeb, Ecotrin, ferrous sulfate, insulin coverage, Lasix, Levemir, Lipitor, meropenem, Norvasc, potassium, Protonix, Solu-Medrol, Tylenol, Zyvox. LABORATORY DATA: Hemoglobin 8.9, hematocrit 28.7, white blood cells 13.3, platelets 235. Sodium 151, potassium 4.5, BUN 55, creatinine 1.6, glucose 233, AST 90, ALT 22, albumin 3.6. ASSESSMENT AND PLAN: Ms. Tamy Abbott is a 72-year-old lady with severe anemia, may be secondary to gastric ulcers and anemia of chronic disease, sepsis, history of foot ulcers, osteomyelitis, hypertension, diabetes mellitus, hypothyroidism, congestive heart failure, sleep apnea syndrome, urinary tract infection multiple times, getting antibiotics, Solu-Cortef tapering doses. Continue antibiotics. Encourage BiPAP. Gastrointestinal and deep venous thrombosis prophylaxis. Repeat labs. Deisy Gilman MD
[2017-09-08 06:38] LABS: BASO # 0.01 K/mm3 (0.0-2.0); BASO % 0.1 % (0.0-3.0); EOS % 0.1 % (1.5-5.0); GRAN # 10.88 (1.4-6.5); GRAN % 84.8 % (50.0-68.0); HEMOGLOBIN 8.8 g/dL (12.0-16.0); LYMPH # 1.1 (1.2-3.4); LYMPH % 8.3 % (22.0-35.0); MEAN CELL VOLUME 85.7 fl (80.0-105.0); MEAN CORPUSCULAR HEMOGLOBIN 26.3 pg (25.0-35.0); MEAN CORPUSCULAR HGB CONC 30.7 g/dl (31.0-37.0); MEAN PLATELET VOLUME 11.4 fl (7.0-11.0); MONO # 0.9 (0.1-0.6); MONO % 6.7 % (1.0-6.0); RBC 3.35 10^6/uL (3.5-6.1); RED CELL DISTRIBUTION WIDTH 19.1 % (11.5-14.5); WHITE BLOOD COUNT 12.8 10^3/ul (4.5-11.0)
[2017-09-08 07:19] LABS: ALBUMIN 3.4 g/dL (3.0-4.8); CALCIUM 8.5 mg/dL (8.4-10.5)
[2017-09-08] MEDS: Insulin Reg-LOW-Coverage SC SCH ×3 (08:07→18:51)
[2017-09-08] MEDS: Dextrose 5%/0.45% NS 1,000 ML IV SCH (08:11)
[2017-09-08] MEDS: Meropenem IV 1 gm in NS 50 ML IVPB SCH (10:10)
--- NOTE | 2017-09-08 10:30 | CP.PCM.PN ---
Subjective - Date & Time of Evaluation Date of Evaluation: 09/08/17 Time of Evaluation: 10:28 - Subjective Subjective: Podiatry Progress Note - Dr. Anderson 72 y/o female seen at bedside this morning with attending Dr. Anderson for left lateral foot ulceration. Pt exhibits altered mental status and cannot offer HPI. Denies pain in the foot at present. Patient denies any acute overnight events. . Resting comfortably in bed at time of visit in [facility], with multipodus boots in place. It is apparent that patient is still not eating meals as her breakfast is bedside unconsumed. She denies having any F/C/N/V/CP/SOB Objective - Vital Signs/Intake and Output Vital Signs (last 24 hours): Temp Pulse Resp BP Pulse Ox 97.8 F 76 22 154/76 H 94 L 09/08/17 06:00 09/08/17 06:00 09/08/17 06:00 09/08/17 06:00 09/08/17 06:00 Intake and Output: 09/08/17 09/08/17 06:59 18:59 Intake Total 360 Output Total 300 Balance 60 - Medications Medications: Current Medications Acetaminophen (Tylenol 325mg Tab) 650 mg PO Q4H PRN PRN Reason: pain fever Albuterol/Ipratropium (Duoneb 3 Mg/0.5 Mg (3 Ml) Ud) 3 ml IH [id number] [facility] Last Admin: 09/08/17 07:04 Dose: 3 ml Amlodipine Besylate (Norvasc) 10 mg PO DAILY [facility] Last Admin: 09/07/17 10:31 Dose: 10 mg Aspirin (Ecotrin) 81 mg PO DAILY [facility] Last Admin: 09/07/17 10:31 Dose: 81 mg Atorvastatin Calcium (Lipitor) 40 mg PO DIN [facility] Last Admin: 09/07/17 17:53 Dose: 40 mg Clotrimazole (Lotrimin 1%) 0 gm TOP DAILY [facility] Last Admin: 09/07/17 10:33 Dose: 1 applic Ferrous Sulfate (Feosol) 324 mg PO BID [facility] Last Admin: 09/07/17 17:53 Dose: 324 mg Furosemide (Lasix) 40 mg IVP DAILY [facility] Last Admin: 09/07/17 10:32 Dose: 40 mg Hydralazine HCl (Apresoline) 50 mg PO Q8H [facility] Last Admin: 09/08/17 01:48 Dose: Not Given Hydrocortisone Sodium Succinate (Solu-Cortef) 25 mg IVP Q12 [facility] Last Admin: 09/07/17 22:27 Dose: 25 mg Meropenem (Merrem Iv 1 Gm Premix) 50 mls @ 100 mls/hr IVPB Q12 [facility] PRN Reason: Protocol Stop: 09/12/17 07:31 Last Admin: 09/07/17 22:26 Dose: 100 mls/hr Dextrose/Sodium Chloride (Dextrose 5%/0.45% Ns 1000 Ml) 1,000 mls @ 50 mls/hr IV .Q20H [facility] Last Admin: 09/08/17 08:11 Dose: 50 mls/hr Insulin Detemir (Levemir) 10 unit SC HS [facility] Last Admin: 09/07/17 22:28 Dose: 10 units Insulin Human Regular (Humulin R Low) 0 units SC ACHS [facility] PRN Reason: Protocol Last Admin: 09/08/17 08:07 Dose: 3 units Pantoprazole Sodium (Protonix Ec Tab) 40 mg PO DAILY [facility] Last Admin: 09/07/17 10:31 Dose: 40 mg Potassium Chloride (Potassium Chloride Oral Soln) 20 meq PO DAILY [facility] Last Admin: 09/07/17 10:36 Dose: 20 meq Sucralfate (Carafate Tab) 1 gm PO HS [facility] Last Admin: 09/07/17 22:28 Dose: 1 gm Vitamin A (Vitamin A & D Oint Ud Foilpak) 1 ea TOP Q8 PRN PRN Reason: Dry skin - Labs Labs: 09/08/17 06:10 09/08/17 06:10 PT 13.1 SECONDS (9.4-12.5) H 09/03/17 23:00 INR 1.15 (0.93-1.08) H 09/03/17 23:00 APTT 50.8 Seconds (25.1-36.5) H 09/03/17 23:00 - Constitutional Appears: Well, Non-toxic, No Acute Distress - Extremities Exam Additional comments: Left lower extremity focused exam: Vasc: DP and PT pulses palpable 1/4. Temperature gradient warm to cool. CFT < 3 sec x 3 digits. No pedal edema is noted Derm: Clean open ulceration measuring approximately 6 cm x 3 cm x 0.2 cm to lateral forefoot with 80% granular and 20% fibrotic wound base. No lukas wound erythema, no tunneling or undermining present, no malodor, no streaking, no purulence, No other clinical signs of infection. Wound appears stable at this time. Stage 1 pressure ulceration noted to plantar medial heel with no breaks in skin or soft tissue Neuro: Epicritic and protective sensation severely diminished B/L Ortho: No tenderness to palpation of lateral forefoot ulceration. No other gross deformities noted - Neurological Exam Neurological Exam: Alert, Awake - Psychiatric Exam Psychiatric exam: Normal Affect, Normal Mood Assessment and Plan - Assessment and Plan (Free Text) Assessment: 72 y/o female with left lateral foot diabetic ulceration Plan: Pt seen and evaluated with Dr. Anderson Chart, labs and vitals reviewed; Afebrile, WBC 12.8 Wound cleaned with saline dressed with xeroform, ABD, DSD Multipodus boots reapplied, to be worn all times in bed Continue IV abx per ID - Merrem Will continue to follow pt and perform daily local wound care
[2017-09-08] MEDS: Clotrimazole 1% Cream(30 gm) TOP SCH (11:31)
[2017-09-08] MEDS: Potassium Chloride 20 mEq/15 ml LIQ UD PO SCH (11:31)
[2017-09-08] MEDS: Pantoprazole 40 mg EC Tab PO SCH (11:32)
--- NOTE | 2017-09-08 11:36 | CP.PCM.DIS ---
Provider - Provider Date of Admission: 09/04/17 18:28 Attending physician: Deisy Gilman MD Primary care physician: Deisy Gilman MD Hospital Course - Lab Results Lab Results: Micro Results 09/06/17 12:30 Urine Urine Culture - Final Creche Attendant Species Most Recent Lab Values WBC 12.8 10^3/ul (4.5-11.0) H 09/08/17 06:10 RBC 3.35 10^6/uL (3.5-6.1) L 09/08/17 06:10 Hgb 8.8 g/dL (12.0-16.0) L 09/08/17 06:10 Hct 28.7 % (36.0-48.0) L 09/08/17 06:10 MCV 85.7 fl (80.0-105.0) 09/08/17 06:10 MCH 26.3 pg (25.0-35.0) 09/08/17 06:10 MCHC 30.7 g/dl (31.0-37.0) L 09/08/17 06:10 RDW 19.1 % (11.5-14.5) H 09/08/17 06:10 Plt Count 216 10^3/uL (120.0-450.0) 09/08/17 06:10 MPV 11.4 fl (7.0-11.0) H 09/08/17 06:10 Gran % 84.8 % (50.0-68.0) H 09/08/17 06:10 Lymph % (Auto) 8.3 % (22.0-35.0) L 09/08/17 06:10 Osborne % (Auto) 6.7 % (1.0-6.0) H 09/08/17 06:10 Eos % (Auto) 0.1 % (1.5-5.0) L 09/08/17 06:10 Baso % (Auto) 0.1 % (0.0-3.0) 09/08/17 06:10 Gran # 10.88 (1.4-6.5) H 09/08/17 06:10 Lymph # (Auto) 1.1 (1.2-3.4) L 09/08/17 06:10 Osborne # (Auto) 0.9 (0.1-0.6) H 09/08/17 06:10 Eos # (Auto) 0.0 (0.0-0.7) 09/08/17 06:10 Baso # (Auto) 0.01 K/mm3 (0.0-2.0) 09/08/17 06:10 PT 13.1 SECONDS (9.4-12.5) H 09/03/17 23:00 INR 1.15 (0.93-1.08) H 09/03/17 23:00 APTT 50.8 Seconds (25.1-36.5) H 09/03/17 23:00 pCO2 42 mm/Hg (35-45) 09/04/17 21:00 pO2 61.0 mm/Hg (80-100) L 09/04/17 21:00 HCO3 20.7 mmol/L (21-28) L 09/04/17 21:00 ABG pH 7.30 (7.35-7.45) L 09/04/17 21:00 ABG Total CO2 22.0 mmol.L (22-28) 09/04/17 21:00 ABG O2 Saturation 96.2 % (95-98) 09/04/17 21:00 ABG Base Excess -5.5 mmol/L (-2.0-3.0) L 09/04/17 21:00 ABG Potassium 3.6 mmol/L (3.6-5.2) 09/04/17 21:00 VBG pH 7.27 (7.32-7.43) L 09/03/17 23:00 VBG pCO2 48.0 (40-60) 09/03/17 23:00 VBG HCO3 22.0 mmol/l (21-28) 09/03/17 23:00 VBG Total CO2 23.5 mmol.L (22-28) 09/03/17 23:00 VBG O2 Sat (Calc) 99.6 % (40-65) H 09/03/17 23:00 VBG Base Excess -5.1 mmol/L (0.0-2.0) L 09/03/17 23:00 VBG Potassium 4.2 mmol/L (3.6-5.2) 09/03/17 23:00 Sodium 148.0 mmol/L (132-148) 09/04/17 21:00 Chloride 120.0 mmol/L (98-107) H 09/04/17 21:00 Glucose 99 mg/dl (65-105) 09/04/17 21:00 Lactate 0.5 mmol/L (0.7-2.1) L 09/04/17 21:00 FiO2 36.0 % 09/04/17 21:00 Sodium 148 mmol/L (132-148) 09/08/17 06:10 Potassium 5.0 mmol/L (3.6-5.0) 09/08/17 06:10 Chloride 114 mmol/L (98-107) H 09/08/17 06:10 Carbon Dioxide 21 mmol/L (21-33) 09/08/17 06:10 Anion Gap 19 (10-20) 09/08/17 06:10 BUN 54 mg/dL (7-21) H 09/08/17 06:10 Creatinine 1.6 mg/dl (0.7-1.2) H 09/08/17 06:10 Est GFR ( Amer) 38 09/08/17 06:10 Est GFR (Non-Af Amer) 32 09/08/17 06:10 POC Glucose (mg/dL) 278 mg/dL (65-110) H 09/08/17 06:33 Random Glucose 273 mg/dL (70-110) H 09/08/17 06:10 Calcium 8.5 mg/dL (8.4-10.5) 09/08/17 06:10 Phosphorus 3.9 mg/dL (2.5-4.5) 09/08/17 06:10 Magnesium 2.1 mg/dL (1.7-2.2) 09/08/17 06:10 TIBC 238 ug/dL (265-497) L 09/05/17 06:30 Ferritin 437.0 ng/mL 09/05/17 06:30 Total Bilirubin 0.8 mg/dL (0.2-1.3) 09/08/17 06:10 AST 12 U/L (14-36) L 09/08/17 06:10 ALT 19 U/L (7-56) 09/08/17 06:10 Alkaline Phosphatase 99 U/L (38-126) 09/08/17 06:10 Lactate Dehydrogenase 610 U/L (333-699) 09/03/17 23:00 Total Creatine Kinase 101 U/L (35-230) 09/03/17 23:00 Troponin I < 0.01 ng/mL 09/07/17 18:16 NT-Pro-B Natriuret Pep 8320 pg/mL (0-450) H 09/07/17 18:16 Total Protein 6.8 g/dL (5.8-8.3) 09/08/17 06:10 Albumin 3.4 g/dL (3.0-4.8) 09/08/17 06:10 Globulin 3.3 gm/dL 09/08/17 06:10 Albumin/Globulin Ratio 1.0 (1.1-1.8) L 09/08/17 06:10 Vitamin B12 485 pg/mL (239-931) 09/05/17 06:30 Procalcitonin < 0.05 NG/ML (0.19-0.49) L 09/04/17 07:00 TSH 3rd Generation 4.44 mIU/mL (0.46-4.68) 09/04/17 09:50 Cortisol AM Sample 29.8 ug/dL (4.46-22.7) H 09/04/17 16:26 Arterial Blood Potassium 3.6 mmol/L (3.6-5.2) 09/04/17 21:00 Venous Blood Potassium 4.2 mmol/L (3.6-5.2) 09/03/17 23:00 Urine Color Yellow (YELLOW) 09/06/17 12:30 Urine Appearance Clear (CLEAR) 09/06/17 12:30 Urine pH 5.5 (4.7-8.0) 09/06/17 12:30 Ur Specific [place] 1.020 (1.005-1.035) 09/06/17 12:30 Urine Protein Negative mg/dL (<30 mg/dL) 09/06/17 12:30 Urine Glucose (UA) Negative mg/dL (NEGATIVE) 09/06/17 12:30 Urine Ketones Negative mg/dL (NEGATIVE) 09/06/17 12:30 Urine Blood Negative (NEGATIVE) 09/06/17 12:30 Urine Nitrate Negative (NEGATIVE) 09/06/17 12:30 Urine Bilirubin Negative (NEGATIVE) 09/06/17 12:30 Urine Urobilinogen 0.2 E.U./dL (<1 E.U./dL) 09/06/17 12:30 Ur Leukocyte Esterase Negative L[place]ha/uL (NEGATIVE) 09/06/17 12:30 Urine RBC 0 - 2 /hpf (0-2) 09/03/17 23:10 Urine WBC 2 - 5 /hpf (0-6) 09/03/17 23:10 Ur Epithelial Cells 3 - 4 /hpf (0-5) 09/03/17 23:10 Urine Bacteria Many (NEG) 09/03/17 23:10 Discharge Exam - Head Exam Head Exam: ATRAUMATIC, NORMOCEPHALIC Discharge Plan - Follow Up Plan Condition: STABLE Disposition: HOME/ ROUTINE Instructions: Syncope (ED)
--- NOTE | 2017-09-08 12:58 | CARD ---
APPROVED REPORT EKG Measurement Heart [id number] <Conclusion> Normal sinus rhythm NSSTW changes Prolonged QTc
--- NOTE | 2017-09-08 15:26 | PN ---
DATE: 09/08/2017 REASON FOR THE CONSULTATION: Bradycardia, history of fall. SUBJECTIVE: The patient denies any chest pain, shortness of breath or any palpitation. OBJECTIVE: GENERAL: Lying flat on the bed with 30-degree head up, not in any apparent distress. VITAL SIGNS: Temperature afebrile, heart rate 79, blood pressure 154/76. HEENT: PERRLA. Extraocular muscles intact. NECK: Supple. No carotid bruit. No thyromegaly. CHEST: Clear to auscultation. HEART: S1 and S2 regular. ABDOMEN: Soft. EXTREMITIES: Clubbing and cyanosis negative. LABORATORY DATA: Blood workup: WBC 12.8, hemoglobin 8.8, hematocrit 28.7, platelet count 216. Chemistry shows sodium 140, potassium 5, chloride 104, carbon dioxide 21, anion gap of 19, BUN 54, creatinine 1.6, total protein 6.4, albumin 3.3. Troponin 0.01 negative. IMPRESSION: A 72-year-old female with past medical history significant for hypertension, admitted, was found to have bradycardia because the patient was on Coreg. Coreg was held since the patient is stable. Hypernatremia, elevated BUN and creatinine, dehydrated. RECOMMENDATIONS: Gentle hydration started yesterday. Hold Lasix and changed to p.o. from day after tomorrow. The patient is stable. Okay to be discharged from Cardiology point of view. Discontinue Coreg because of bradycardia. Started on amlodipine. We will follow with you. Repeat the blood workup in the morning. IV Lasix discontinued. Start p.o. Lasix in 1-2 days. Continue D5 and repeat SMA-7 in the morning. Thank you, Dr. Gilman for providing us the opportunity in taking care of the patient, Tamy Abbott. Alayna Trent MD
--- NOTE | 2017-09-08 15:48 | CP.PCM.PN ---
<Alfred Zelaya - Last Filed: 09/08/17 15:51> Subjective - Date & Time of Evaluation Date of Evaluation: 09/08/17 Time of Evaluation: 15:45 - Subjective Subjective: Medicine progress note for Dr. Pam Zelaya PGY3 Patient seen and examined at bedside this morning. No acute overnight events or new complaints reported. Discussed case with ID and antibiotics may be discontinued. Pending placement. Denies chest pain, palpitations, SOB. Was seen by cardiology, note reviewed. Objective - Vital Signs/Intake and Output Vital Signs (last 24 hours): Temp Pulse Resp BP Pulse Ox 97.8 F 76 22 154/76 H 94 L 09/08/17 06:00 09/08/17 06:00 09/08/17 06:00 09/08/17 10:12 09/08/17 06:00 Intake and Output: 09/08/17 09/08/17 06:59 18:59 Intake Total 360 Output Total 300 Balance 60 - Medications Medications: Current Medications Acetaminophen (Tylenol 325mg Tab) 650 mg PO Q4H PRN PRN Reason: pain fever Albuterol/Ipratropium (Duoneb 3 Mg/0.5 Mg (3 Ml) Ud) 3 ml IH [id number] [facility] Last Admin: 09/08/17 11:18 Dose: 3 ml Amlodipine Besylate (Norvasc) 10 mg PO DAILY [facility] Last Admin: 09/08/17 11:31 Dose: Not Given Aspirin (Ecotrin) 81 mg PO DAILY [facility] Last Admin: 09/08/17 11:30 Dose: Not Given Atorvastatin Calcium (Lipitor) 40 mg PO DIN [facility] Last Admin: 09/07/17 17:53 Dose: 40 mg Clotrimazole (Lotrimin 1%) 0 gm TOP DAILY [facility] Last Admin: 09/08/17 11:31 Dose: 1 applic Ferrous Sulfate (Feosol) 324 mg PO BID [facility] Last Admin: 09/08/17 11:31 Dose: Not Given Furosemide (Lasix) 40 mg PO DAILY [facility] Hydralazine HCl (Apresoline) 50 mg PO Q8H [facility] Last Admin: 09/08/17 11:30 Dose: Not Given Hydrocortisone Sodium Succinate (Solu-Cortef) 25 mg IVP Q12 [facility] Last Admin: 09/08/17 10:06 Dose: 25 mg Dextrose/Sodium Chloride (Dextrose 5%/0.45% Ns 1000 Ml) 1,000 mls @ 50 mls/hr IV .Q20H [facility] Last Admin: 09/08/17 08:11 Dose: 50 mls/hr Insulin Detemir (Levemir) 10 unit SC HS [facility] Last Admin: 09/07/17 22:28 Dose: 10 units Insulin Human Regular (Humulin R Low) 0 units SC ACHS [facility] PRN Reason: Protocol Last Admin: 09/08/17 08:07 Dose: 3 units Pantoprazole Sodium (Protonix Ec Tab) 40 mg PO DAILY [facility] Last Admin: 09/08/17 11:32 Dose: Not Given Potassium Chloride (Potassium Chloride Oral Soln) 20 meq PO DAILY [facility] Last Admin: 09/08/17 11:31 Dose: Not Given Sucralfate (Carafate Tab) 1 gm PO HS [facility] Last Admin: 09/07/17 22:28 Dose: 1 gm Vitamin A (Vitamin A & D Oint Ud Foilpak) 1 ea TOP Q8 PRN PRN Reason: Dry skin - Labs Labs: 09/08/17 06:10 09/08/17 06:10 PT 13.1 SECONDS (9.4-12.5) H 09/03/17 23:00 INR 1.15 (0.93-1.08) H 09/03/17 23:00 APTT 50.8 Seconds (25.1-36.5) H 09/03/17 23:00 - Constitutional Appears: No Acute Distress - Head Exam Head Exam: ATRAUMATIC, NORMOCEPHALIC - Eye Exam Eye Exam: EOMI Pupil Exam: PERRL - Respiratory Exam Respiratory Exam: Decreased Breath Sounds. absent: Rales, Rhonchi, Wheezes - Cardiovascular Exam Cardiovascular Exam: RRR, +S1, +S2. absent: Gallop, Rubs - GI/Abdominal Exam GI & Abdominal Exam: Soft, Normal Bowel Sounds. absent: Distended, Firm, Guarding, Rigid, Tenderness - Extremities Exam Extremities Exam: Pedal Edema Additional comments: LE edema 1+ - Neurological Exam Neurological Exam: Alert, Awake - Psychiatric Exam Psychiatric exam: Normal Affect, Normal Mood - Skin Skin Exam: Dry, Intact, Normal Color, Warm Assessment and Plan - Assessment and Plan (Free Text) Plan: 72yo female with history of HTN, DM type 2, anemia, HLD, GERD presents to [facility] [place] [facility] s/ p syncopal episode at home 1. Syncope secondary to bradycardia 2. Diabetes mellitus type 2 3. Hypertension 4. Anemia 5. Hyperlipidemia 8. GERD -Her coreg was discontinued per cardiology recommendations due to bradycardia which has now resolved -Lasix changed to PO which she may take every other day per cardiology recommendations -Urine culture was significant for ESBL Ecoli, however her urinalsys was negative and thus meropenem may be discontinued per ID recs -She is on Lasix, hydralazine and noravasc for hypertension, protonix and carafate for GERD, insulin for diabetes and lipitor for hyperlidemia -Head CT revealed no acute intracranial abnormalities, MRI from previous visit reviewed -CXR revealed cardiomegaly with possible cardiogenic pulmonary edema, see full report -EKG reviewed; revealed sinus bradycardia at 47bpm, QT prolongation, anterior infarct (age undetermined) see official read -Neurology and cardiology consulted -Pending placement Patient seen and case discussed/reviewed with attending, Dr. Orozco <Cricket Orozco S - Last Filed: 09/08/17 21:56> Objective - Vital Signs/Intake and Output Vital Signs (last 24 hours): Temp Pulse Resp BP Pulse Ox 98.2 F 70 20 126/69 96 09/08/17 14:00 09/08/17 14:00 09/08/17 14:00 09/08/17 14:00 09/08/17 14:00 - Medications Medications: Current Medications Acetaminophen (Tylenol 325mg Tab) 650 mg PO Q4H PRN PRN Reason: pain fever Albuterol/Ipratropium (Duoneb 3 Mg/0.5 Mg (3 Ml) Ud) 3 ml IH [id number] [facility] Last Admin: 09/08/17 19:26 Dose: 3 ml Amlodipine Besylate (Norvasc) 10 mg PO DAILY [facility] Last Admin: 09/08/17 11:31 Dose: Not Given Aspirin (Ecotrin) 81 mg PO DAILY [facility] Last Admin: 09/08/17 11:30 Dose: Not Given Atorvastatin Calcium (Lipitor) 40 mg PO DIN [facility] Last Admin: 09/07/17 17:53 Dose: 40 mg Clotrimazole (Lotrimin 1%) 0 gm TOP DAILY [facility] Last Admin: 09/08/17 11:31 Dose: 1 applic Ferrous Sulfate (Feosol) 324 mg PO BID [facility] Last Admin: 09/08/17 18:50 Dose: Not Given Furosemide (Lasix) 40 mg PO DAILY [facility] Hydralazine HCl (Apresoline) 50 mg PO Q8H [facility] Last Admin: 09/08/17 18:50 Dose: Not Given Hydrocortisone Sodium Succinate (Solu-Cortef) 25 mg IVP DAILY [facility] Dextrose/Sodium Chloride (Dextrose 5%/0.45% Ns 1000 Ml) 1,000 mls @ 50 mls/hr IV .Q20H [facility] Last Admin: 09/08/17 08:11 Dose: 50 mls/hr Insulin Detemir (Levemir) 10 unit SC HS [facility] Last Admin: 09/07/17 22:28 Dose: 10 units Insulin Human Regular (Humulin R Low) 0 units SC ACHS [facility] PRN Reason: Protocol Last Admin: 09/08/17 18:51 Dose: 3 units Pantoprazole Sodium (Protonix Ec Tab) 40 mg PO DAILY [facility] Last Admin: 09/08/17 11:32 Dose: Not Given Potassium Chloride (Potassium Chloride Oral Soln) 20 meq PO DAILY [facility] Last Admin: 09/08/17 11:31 Dose: Not Given Sucralfate (Carafate Tab) 1 gm PO HS [facility] Last Admin: 09/07/17 22:28 Dose: 1 gm Vitamin A (Vitamin A & D Oint Ud Foilpak) 1 ea TOP Q8 PRN PRN Reason: Dry skin - Labs Labs: 09/08/17 06:10 09/08/17 06:10 PT 13.1 SECONDS (9.4-12.5) H 09/03/17 23:00 INR 1.15 (0.93-1.08) H 09/03/17 23:00 APTT 50.8 Seconds (25.1-36.5) H 09/03/17 23:00 Assessment and Plan - Assessment and Plan (Free Text) Plan: Pt seen and examined. I have reviewed the note of the associate medical director and agree with it. I have discussed the assessment and plan with the resident. I have reviewed the patient's labs and medications. Pt finished with Abx. She will be sent back to [facility]. Coreg stopped.
--- NOTE | 2017-09-08 16:17 | PN ---
DATE: 09/08/2017 SUBJECTIVE: The patient seen earlier this morning in 563, bed 1, and doing well. No fevers, no chills, uneventful night as per nurse. PHYSICAL EXAMINATION: VITAL SIGNS: Temperature is 97, blood pressure is 150/70, respiratory rate of 20, heart rate of 70. HEENT: Unremarkable. NECK: Supple. LUNGS: Decreased breath sounds. HEART: Normal S1 and S2. ABDOMEN: Soft and nontender. LABORATORY DATA: Reveals white count is around 12,800, hemoglobin of 8. Chemistries reveal a BUN of 54, creatinine of 1.6. Procalcitonin is less than 0.05. Urinalysis is noted. Microbiology reveals a urine culture with E. coli and other urine cultures are die cast patternmaker. The E. coli is reported to be ESBL; however, urinalysis is negative. The patient's chest x-ray from yesterday is reviewed, stable multifocal infiltrates with a normal procalcitonin. ASSESSMENT AND PLAN: This is a 72-year-old female seen earlier this morning in 566, bed 3 with diabetes mellitus, hypertension, dementia, hypothyroidism, bradycardia, hypoxia, and renal insufficiency. The patient was admitted with severe sepsis, right lower lobe health-care associated pneumonia, Gram-positive cocci versus Gram-negative shelby, normal procalcitonin, extended-spectrum beta-lactamase in the urine most likely not a pathogen. Repeat urinalysis is negative. Does not require therapy. We will discontinue the meropenem. No further antibiotics needed. Asim George MD
[2017-09-08 17:11] VITALS: BP 126/69; PULSE 70; RESP 20; TEMP 98.2; O2SAT 96
--- NOTE | 2017-09-08 19:35 | PN ---
DATE: 09/08/2017 PULMONARY PROGRESS NOTE REFERRING PHYSICIAN: Deisy Gilman MD. SUBJECTIVE: Patient is lying in the bed, head at 45 degrees, sleepy, arousable, tolerated BiPAP well, more awake and alert. No nausea, no vomiting, no diarrhea. No leg pain or leg swelling. OBJECTIVE: GENERAL: In no acute distress. VITAL SIGNS: Temperature is 98, heart rate is 70, respiratory rate is 20, blood pressure 126/69, pulse ox 96% on nasal cannula. HEENT: Dry mucous membrane. Crowded airway. NECK: Supple. No JVD. LUNGS: Have a fair airflow with rhonchi. HEART: S1 and S2. ABDOMEN: Soft, nontender, no organomegaly. EXTREMITTIES: Has bilateral heel ulcers with booties. NEUROLOGICAL: Sleepy, arousable. MEDICATIONS: She is on hydralazine 50 mg every 8 hour, Carafate 1 g at bedtime, IV fluid D5 half-normal saline 50 mL per hour, DuoNeb every 4 hour [id number], Ecotrin 81 mg daily, ferrous sulfate 324 mg twice a day, insulin coverage, Lasix 40 mg daily, Levemir 10 units subcu at bedtime, Lipitor 40 mg daily, Lotrimin at affected area daily, Norvasc 10 mg daily, potassium supplement 20 mEq daily, Protonix 40 mg daily, Solu-Cortef 25 mg IV every 12 hour, Tylenol p.r.n., vitamin A and D ointment to the affected area p.r.n. LABORATORY DATA: Shows hemoglobin 8.8, hematocrit 28.7, WBC 12.8, platelet count is 216. Sodium 148, potassium 5, chloride 114, bicarbonate 21, BUN 54, creatinine 1.6, glucose 273, calcium 8.5, phosphorus 3.9, magnesium 2.1. AST is 12, ALT 19, alk phos is 99, albumin is 3.4. Had a chest x-ray done yesterday, shows multifocal infiltrate. IMPRESSION AND PLAN: Severe anemia secondary to gastric ulcers, sepsis, foot ulcers, hypertension, diabetes, hypothyroid, congestive heart failure, sleep apnea syndrome, urinary tract infection. Pulmonary point of view, doing okay. Continue to encourage BiPAP while sleeping. Keep head at 45 degrees. Antibiotics as per Infectious Diseases. Taper off Solu-Cortef. Cardiology followup. Will need followup x-ray to assure the stability of infiltrate. Thank you and we will follow with you. Alayna Terry MD
== END 2017-09-08 22:29 | DRG 871 ==
LOC: ED 22:13 → ERH 09-04 02:57 → 2RNO 09-04 04:37 → OBSVTOIN 09-04 18:28 → 2RNO 09-05 14:25 → 5RNO 09-06 15:09
PROVIDERS: ADMIT Internal Medicine; ATTEND Internal Medicine
PROC: 3E03328 Introduction of Oxazolidinones into Peripheral Vein, Percutaneous Approach (ICD-10-PCS; principal; 2017-09-04)
PROC: 3E0F7GC Introduction of Other Therapeutic Substance into Respiratory Tract, Via Natural or Artificial Opening (ICD-10-PCS; 2017-09-04)
PROC: 5A09457 Assistance with Respiratory Ventilation, 24-96 Consecutive Hours, Continuous Positive Airway Pressure (ICD-10-PCS; 2017-09-05)
DX: A41.9 Sepsis, unspecified organism (principal); J18.9 Pneumonia, unspecified organism; N39.0 Urinary tract infection, site not specified; E87.0 Hyperosmolality and hypernatremia; E03.9 Hypothyroidism, unspecified; D64.9 Anemia, unspecified; I50.9 Heart failure, unspecified; I11.0 Hypertensive heart disease with heart failure; I25.10 Atherosclerotic heart disease of native coronary artery without angina pectoris; F03.90 Unspecified dementia, unspecified severity, without behavioral disturbance, psychotic disturbance, mood disturbance, and anxiety; E78.00 Pure hypercholesterolemia, unspecified; R09.02 Hypoxemia; R00.1 Bradycardia, unspecified; L97.519 Non-pressure chronic ulcer of other part of right foot with unspecified severity; E11.51 Type 2 diabetes mellitus with diabetic peripheral angiopathy without gangrene; R65.20 Severe sepsis without septic shock; L97.529 Non-pressure chronic ulcer of other part of left foot with unspecified severity; E11.621 Type 2 diabetes mellitus with foot ulcer; E86.0 Dehydration; K25.9 Gastric ulcer, unspecified as acute or chronic, without hemorrhage or perforation; G47.30 Sleep apnea, unspecified; K21.9 Gastro-esophageal reflux disease without esophagitis; Y95 Nosocomial condition; N28.9 Disorder of kidney and ureter, unspecified; Z89.422 Acquired absence of other left toe(s); Z90.710 Acquired absence of both cervix and uterus

== ENCOUNTER 2017-09-09 04:49 | Inpatient (IN) | payer MEDICARE ==
[2017-09-09 04:50] VITALS: BMI 32.3
--- NOTE | 2017-09-09 05:37 | ED PDOC ---
Arrival/HPI - General Chief Complaint: Cardiac Arrest Time Seen by Provider: 09/09/17 05:15 Historian: [facility], EMS - History of Present Illness Narrative History of Present Illness (Text): 09/09/17 04:49 Tamy Abbott is a 72 year old female, whose past medical history includes hypertension, hyperlipidemia, Type 2 diabetes mellitus, hypothyroidism, and dementia, who presents to the Emergency department transferred from [facility] brought in by EMS status post cardiac arrest. As per EMS, [facility] staff went to check on the patient, patient was found unresponsive with unknown downtime. CPR was commenced by [facility] staff and EMS was notified. On arrival to [facility], patient noted to be in pulseless, in asystole. Patient was intubated by EMS, IO was placed in the left shoulder, given 4 doses of Epi and 1 calcium bicarbonate in the field. EMS obtained ROSC at 04:27 in the field. On arrival to Emergency department, patient was in PEA and CPR/ACLS protocol was recommenced. Limited HPI and ROS secondary to patient's condition. PMD: Dr. Gilman Time/Duration: Prior to Arrival Symptom Onset: Sudden Symptom Course: Unchanged Severity Level: Severe Activities at Onset: Rest Context: Home (detention) Past Medical History - Provider Review Nursing Documentation Reviewed: Yes - Infectious Disease Hx of Infectious Diseases: None - Cardiac Hx Cardiac Disorders: Yes Hx Hypertension: Yes - Pulmonary Hx Respiratory Disorders: No - Neurological Hx Neurological Disorder: Yes Hx Dementia: Yes Hx Dizziness: Yes Other/Comment: syncope - HEENT Hx HEENT Disorder: No - Renal Hx Renal Disorder: No - Endocrine/Metabolic Hx Diabetes Mellitus Type 2: Yes Hx Hypothyroidism: Yes - Hematological/Oncological Hx Cancer: No - Integumentary Hx Dermatological Disorder: Yes - Musculoskeletal/Rheumatological Hx Musculoskeletal Disorders: Yes Hx Back Pain: Yes Hx Falls: Yes Hx Osteoarthritis: Yes - Gastrointestinal Hx Gastrointestinal Disorders: No - Genitourinary/Gynecological Hx Genitourinary Disorders: Yes Hx Hematuria: Yes Hx Incontinence: Yes Hx Urinary Tract Infection: Yes - Psychiatric Hx Psychophysiologic Disorder: Yes Hx Anxiety: Yes Hx Substance Use: No - Surgical History Hx Mastectomy: No - Anesthesia Hx Anesthesia Reactions: No Hx Malignant Hyperthermia: No - Suicidal Assessment Feels Threatened In Home Enviroment: No Family/Social History - Physician Review Nursing Documentation Reviewed: Yes Family/Social History: Unknown Family HX Smoking Status: Former Smoker Hx Alcohol Use: No Hx Substance Use: No Allergies/Home Meds Allergies/Adverse Reactions: Allergies nifedipine Adverse Reaction (Severe, Verified 07/29/17 19:31) hypotension, bradycardia, CHF Home Medications: Home Meds Medication Instructions Recorded Confirmed oxyCODONE/Acetaminophen [Percocet 1 tab PO Q6H PRN 06/28/17 08/17/17 5/325 mg Tab] Review of Systems - Review of Systems Systems not reviewed;Unavailable: Other (cardiac arrest) Physical Exam Vital Signs Reviewed: Yes Vital Signs Temp Pulse Resp BP Pulse Ox 09/09/17 06:33 108 H 20 137/66 100 09/09/17 06:28 91.2 F L 09/09/17 05:41 86 17 149/71 96 09/09/17 05:30 72 12 78/39 L 86 L Pulse: Regular Respiratory Rate: Mechanically Ventilated (Intubated, on bag-valve mask) Mental Status: Positive for: other (Unresponsive) - Systems Exam Head: Present: Atraumatic, Normocephalic Conjunctiva: Present: Normal Mouth: Present: Moist Mucous Membranes Respiratory/Chest: Present: Other (Coarse breath sound bilateraqlly) Cardiovascular: Present: Regular Rate and Rhythm Abdomen: Present: Normal Bowel Sounds, Other (Obese) Upper Extremity: No: Cyanosis, Edema Lower Extremity: No: Edema Neurological: Present: Other (Unresponsive) Skin: Present: Dry. No: Warm (Upper and lower extremities cool to touch), Rashes Medical Decision Making ED Course and Treatment: 09/09/17 04:49 Impression: 72 year old female brought in s/p cardiac arrest. Plan: -- EKG -- Chest X-ray -- Labs, cardiac enzymes, ABG, VBG, blood type and screen, blood cultures -- Reassess and disposition Prior Visits: Notes and results from previous visits were reviewed. On 09/03/2017, pt was seen in the Emergency department status post syncopal episode with altered mental status. Pt was admitted to the hospital. Pt was d/c on 09/08/2017 following treatment. Progress Notes: 09/09/17 04:49 Pt seen on arrival to Emergency department. Pt was intubated by ALS in the field , with an 8 gauge ET tube, 28cm at the lip. Left shoulder IO was placed, pt was given 4 doses of Epi, and 1 dose of bicarb. ROSC at 04:27. On arrival, pt pulseless, in PEA. CPR/ACLS protocol commenced. 09/09/17 04:59 Pt given 2 doses of Epi in ER, 1 dose of bicarb. Refer to nursing code documentation for further information. Pt with palpable pulses, in sinus tachycardia. Will place central line for IV access. 09/09/17 05:21 PROCEDURE: US GUIDED CENTRAL LINE PLACEMENT Performed by the emergency provider, Consent: Discussion of the risks, benefits, and alternatives to the procedure, along with informed consent was precluded by the urgency of the procedure and the patient condition. Timeout: A timeout to verify the correct patient, procedure, and site was performed. Indication: Poor IV access Skin Preparation: Hand hygiene performed prior to central venous catheter insertion. Sterile field, sterile drape, sterile technique, and cap and gown were used. The area was cleansed with 2% Chlorhexidine. Patient position: Supine Location: Left femoral Ultrasound guidance: YES Technique: The landmarks for the line placement were identified. The vessel was cannulated and a non-tunneled 7.0 Fr triple lumen was placed using the Seldinger technique. Successful placement: YES. Line sutured with silk and appropriate dressing applied. Assessment: Good patency and blood return through all three lumens. The ports were appropriately flushed. See post procedure X-Ray interpretation. Post-procedure: Patient with no immediate complications. 09/09/17 05:[address] Kumar, medical librarian, who is aware and agrees with plan. Pt will be admitted to the ICU. university relations vice president notified. 09/09/17 05:28 Pt hypotensive at 74/89. Levophed ordered. 09/09/17 05:40 Chest X-ray reviewed, ET tube in place, NG tube past diaphragm. ET tube adjusted, now 22cm at the lip. 09/09/17 05:[address] Orozco, covering for Dr. Gilman, who is aware and agrees with plan. Pt admitted to ICU for cardiac arrest under Dr. Gilman's service. Requests pt receive Aztreonam. 09/09/17 06:11 Labs noted. Code Sepsis called. 09/09/17 06:20 Reviewed EKG, NSR at [address]-segment elevations or depressions, no T-wave inversions, normal intervals. - Critical Care Critical Care Minutes: 60 minutes - Lab Interpretations Lab Results: 09/09/17 05:30 09/09/17 05:30 Lab Results 09/09/17 05:53: POC Glucose (mg/dL) 321 H 09/09/17 05:30: Blood Type Pending, Antibody Screen Pending, BBK History Checked Patient has bt 09/09/17 05:30: pO2 44, VBG pH 6.90 L*, VBG pCO2 99.0 H*, VBG HCO3 19.4 L, VBG Total CO2 22.4, VBG O2 Sat (Calc) 74.0 H, VBG Base Excess -15.4 L, VBG Potassium 5.1, Sodium 147.0, Chloride 116.0 H, Glucose 356 H, Lactate 7.9 H*, FiO2 21.0, Venous Blood Potassium 5.1 09/09/17 05:30: Sodium Pending, Chloride Pending, Potassium Pending, Carbon Dioxide Pending, Anion Gap Pending, BUN Pending, Creatinine Pending, Est GFR ( Amer) Pending, Est GFR (Non-Af Amer) Pending, Random Glucose Pending, Calcium Pending, Phosphorus Pending, Magnesium Pending, Total Bilirubin Pending , AST Pending, ALT Pending, Alkaline Phosphatase Pending, Lactate Dehydrogenase Pending, Total Creatine Kinase Pending, Troponin I 0.01, Total Protein Pending, Albumin Pending, Globulin Pending, Albumin/Globulin Ratio Pending 09/09/17 05:30: WBC 20.9 H D, RBC 3.93, Hgb 10.4 L, Hct 35.4 L, MCV 90.1 D, MCH 26.5, MCHC 29.4 L, RDW 19.2 H, Plt Count 226, MPV 11.1 H, Gran % 76.2 H, Lymph % (Auto) 18.0 L, [place] % (Auto) 4.9, Eos % (Auto) 0.6 L, Baso % (Auto) 0.3 , Gran # 15.88 H, Lymph # (Auto) 3.8 H, [place] # (Auto) 1.0 H, Eos # (Auto) 0.1, Baso # (Auto) 0.06 I have reviewed the lab results: Yes - RAD Interpretation Radiology Orders: 09/09/17 05:29 CHEST PORTABLE [RAD] Stat Spot Facer: ED Physician - EKG Interpretation Interpreted by ED Physician: Yes Type: 12 lead EKG - Medication Orders Current Medication Orders: Norepinephrine Bitartrate 8 mg (/ Sodium Chloride) 508 mls @ 15.24 mls/hr IV .Q24H PRN; Protocol; 4 MCG/MIN PRN Reason: TITRATE PER MD ORDER Last Admin: 09/09/17 06:00 Dose: 15 mls/hr eMAR Start Stop Document 09/09/17 06:00 CNR (Rec: 09/09/17 06:00 CNR [id number]) Intravenous Solution Start Date 09/09/17 Start Time 05:30 Sodium Chloride (Sodium Chloride 0.9%) 1,000 mls @ 250 mls/hr IV .Q4H ONE Stop: 09/09/17 09:54 Last Admin: 09/09/17 06:21 Dose: 250 mls/hr eMAR Start Stop Document 09/09/17 06:21 CNR (Rec: 09/09/17 06:21 CNR [id number]) Intravenous Solution Start Date 09/09/17 Start Time 06:21 Sodium Chloride (Sodium Chloride 0.9%) 1,000 mls @ 100 mls/hr IV .Q10H NIDHI Vancomycin HCl (Vancomycin 1gm) 1 gm in 250 mls @ 167 mls/hr IVPB DAILY NIDHI PRN Reason: Protocol Piperacillin Sod/Tazobactam Sod (Zosyn 3.375 In Ns 100ml) 100 mls @ 200 mls/hr IVPB STAT STA PRN Reason: Protocol Stop: 09/09/17 06:45 Last Admin: 09/09/17 06:30 Dose: 200 mls/hr eMAR Start Stop Document 09/09/17 06:30 CNR (Rec: 09/09/17 06:30 CNR [id number]) Intravenous Solution Start Date 09/09/17 Start Time 06:30 End Date 09/09/17 End time 07:00 Total Infusion Time 30 Insulin Human Regular (Humulin R Med) 0 units SC ACHS NIDHI PRN Reason: Protocol Discontinued Medications Aztreonam (Azactam 1 Gm) 100 mls @ 100 mls/hr IVPB STAT STA PRN Reason: Protocol Stop: 09/09/17 06:54 Last Admin: 09/09/17 06:20 Dose: 100 mls/hr eMAR Start Stop Document 09/09/17 06:20 CNR (Rec: 09/09/17 06:21 CNR [id number]) Intravenous Solution Start Date 09/09/17 Start Time 06:21 - Scribe Statement The provider has reviewed the documentation as recorded by the Eleni Blum Provider Scribe Attestation: All medical record entries made by the Scribe were at my direction and personally dictated by me. I have reviewed the chart and agree that the record accurately reflects my personal performance of the history, physical exam, medical decision making, and the department course for this patient. I have also personally directed, reviewed, and agree with the discharge instructions and disposition. Disposition/Present on Arrival - Present on Arrival Any Indicators Present on Arrival: Yes History of DVT/PE: No History of Uncontrolled Diabetes: Yes Urinary Catheter: No History of Decub. Ulcer: No History Surgical Site Infection Following: None - Disposition Have Diagnosis and Disposition been Completed?: Yes Diagnosis: Cardiac arrest Disposition: HOSPITALIZED Disposition Time: 04:50 Patient Plan: ICU Condition: CRITICAL
[2017-09-09 05:47] LABS: BASO # 0.06 K/mm3 (0.0-2.0); BASO % 0.3 % (0.0-3.0); EOS # 0.1 (0.0-0.7); EOS % 0.6 % (1.5-5.0); GRAN # 15.88 (1.4-6.5); GRAN % 76.2 % (50.0-68.0); HEMOGLOBIN 10.4 g/dL (12.0-16.0); LYMPH # 3.8 (1.2-3.4); MEAN CELL VOLUME 90.1 fl (80.0-105.0); MEAN CORPUSCULAR HEMOGLOBIN 26.5 pg (25.0-35.0); MEAN CORPUSCULAR HGB CONC 29.4 g/dl (31.0-37.0); MEAN PLATELET VOLUME 11.1 fl (7.0-11.0); MONO % 4.9 % (1.0-6.0); RBC 3.93 10^6/uL (3.5-6.1); RED CELL DISTRIBUTION WIDTH 19.2 % (11.5-14.5); WHITE BLOOD COUNT 20.9 10^3/ul (4.5-11.0)
[2017-09-09] MEDS ORDERED: Sodium Chloride 0.9% 1,000 ML IV ONE (05:55)
[2017-09-09] MEDS ORDERED: Aztreonam 1 Gm in NS 100mL 100 ML IVPB STA (05:55)
[2017-09-09] MEDS: Norepinephrine 8 MG in Sodium Chloride 0.9% 500 ML IV PRN ×2 (06:00→15:33)
[2017-09-09] MEDS ORDERED: Pantoprazole 40 mg EC Tab PO SCH (06:00)
[2017-09-09 06:02] LABS: VENOUS BLOOD GAS BASE EXCESS -15.4 mmol/L (0.0-2.0); VENOUS BLOOD GAS PO2 44 mm/Hg (30-55)
[2017-09-09] MEDS ORDERED: Piperacillin/Tazobact 3.375 gm 100 ML IVPB STA (06:16)
[2017-09-09 06:20] LABS: ARTERIAL BLOOD GAS HCO3 16.5 mmol/L (21-28); ARTERIAL BLOOD GAS HEMOGLOBIN 10.1 g/dL (11.7-17.4); ARTERIAL BLOOD GAS O2 CAPACITY 13.8 mL/dl (16-24); ARTERIAL BLOOD GAS PCO2 57 mm/Hg (35-45); ARTERIAL BLOOD GAS TCO2 18.2 mmol.L (22-28)
[2017-09-09 06:24] LABS: ARTERIAL BLOOD GAS PH 7.07 (7.35-7.45)
[2017-09-09 06:30] LABS: TROPONIN I 0.01 ng/mL
[2017-09-09 06:38] LABS: ALB/GLOB RATIO 1.1 (1.1-1.8); ALBUMIN 3.3 g/dL (3.0-4.8); CALCIUM 9.3 mg/dL (8.4-10.5)
[2017-09-09 06:42] LABS: IRON 186 ug/dL (45-180)
[2017-09-09 06:52] LABS: % IRON SATURATION 94 % (20-55); TOTAL IRON BINDING CAPACITY 199 ug/dL (265-497)
--- NOTE | 2017-09-09 07:02 | CP.PCM.CON ---
History of Present Illness - History of Present Illness History of Present Illness: ICU consult note for Dr. Kumar: Cedric, PGY - 2 Reason for consult: Cardiac arrest HPI: 71 year old female with pertinent medical history of hypertension presented to [facility] ED s/p cardiac arrest from [facility]. Patient was found at group home unresponsive and pulseless in her room. Patient was intubated, 4 rounds of epi and one bicarb were given before patient achieved ROSC, and she was then transported via EMS to [facility] where she was found to be pulseless again. Patient was given 2 more rounds of epi and one more bicarb before ROSC was achieved. Levophed gtt was started in ED, EKG was obtained which did not show any peaked T waves or U waves indicative of any electrolyte abnormalities. Of note, patient was recently discharged from [facility] after presenting with syncope and anemia. Son is at bedside, DNR/DNI discussion initiated, wants full code right now. 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 Past Patient History - Infectious Disease Hx of Infectious Diseases: None - Past Medical History & Family History Past Medical History?: Yes - Past Social History Smoking Status: Former Smoker - CARDIAC Hx Cardiac Disorders: Yes Hx Hypertension: Yes - PULMONARY Hx Respiratory Disorders: No - NEUROLOGICAL Hx Neurological Disorder: Yes Hx Dementia: Yes Hx Dizziness: Yes Other/Comment: syncope - HEENT Hx HEENT Problems: No - RENAL Hx Chronic Kidney Disease: No - ENDOCRINE/METABOLIC Hx Diabetes Mellitus Type 2: Yes Hx Hypothyroidism: Yes - HEMATOLOGICAL/ONCOLOGICAL Hx Cancer: No - INTEGUMENTARY Hx Dermatological Problems: Yes - MUSCULOSKELETAL/RHEUMATOLOGICAL Hx Musculoskeletal Disorders: Yes Hx Back Pain: Yes Hx Falls: Yes Hx Osteoarthritis: Yes - GASTROINTESTINAL Hx Gastrointestinal Disorders: No - GENITOURINARY/GYNECOLOGICAL Hx Genitourinary Disorders: Yes Hx Hematuria: Yes Hx Incontinence: Yes Hx Urinary Tract Infection: Yes - PSYCHIATRIC Hx Psychophysiologic Disorder: Yes Hx Anxiety: Yes Hx Substance Use: No - SURGICAL HISTORY Hx Mastectomy: No - ANESTHESIA Hx Anesthesia Reactions: No Hx Malignant Hyperthermia: No Meds Allergies/Adverse Reactions: Allergies Allergy/AdvReac Type Severity Reaction Status Date / Time nifedipine AdvReac Severe hypotension, Verified 07/29/17 19:31 bradycardia, CHF - Medications Medications: Current Medications Norepinephrine Bitartrate 8 mg (/ Sodium Chloride) 508 mls @ 15.24 mls/hr IV .Q24H PRN; Protocol; 4 MCG/MIN PRN Reason: TITRATE PER MD ORDER Last Admin: 09/09/17 06:00 Dose: 15 mls/hr Sodium Chloride (Sodium Chloride 0.9%) 1,000 mls @ 250 mls/hr IV .Q4H ONE Stop: 09/09/17 09:54 Last Admin: 09/09/17 06:21 Dose: 250 mls/hr Sodium Chloride (Sodium Chloride 0.9%) 1,000 mls @ 100 mls/hr IV .Q10H NIDHI Vancomycin HCl (Vancomycin 1gm) 1 gm in 250 mls @ 167 mls/hr IVPB DAILY NIDHI PRN Reason: Protocol Insulin Human Regular (Humulin R Med) 0 units SC ACHS NIDHI PRN Reason: Protocol Physical Exam - Constitutional Appears: In Acute Distress, Chronically Ill Additional comments: patient intubated not sedated - Head Exam Head Exam: ATRAUMATIC, NORMAL INSPECTION, NORMOCEPHALIC - Eye Exam Eye Exam: EOMI, Normal appearance, PERRL Pupil Exam: NORMAL ACCOMODATION, PERRL - ENT Exam ENT Exam: Mucous Membranes Moist, Normal Exam - Neck Exam Neck exam: Positive for: Normal Inspection - Respiratory Exam Respiratory Exam: Clear to Auscultation Bilateral, NORMAL BREATHING PATTERN - Cardiovascular Exam Cardiovascular Exam: REGULAR RHYTHM - GI/Abdominal Exam GI & Abdominal Exam: Normal Bowel Sounds, Soft. absent: Tenderness - Extremities Exam Extremities exam: Positive for: normal inspection - Back Exam Back exam: NORMAL INSPECTION - Neurological Exam Neurological exam: Alert, CN II-XII Intact, Normal Gait, Oriented x3, Reflexes Normal - Psychiatric Exam Psychiatric exam: Normal Affect, Normal Mood - Skin Skin Exam: Dry, Intact, Normal Color, Warm Results - Vital Signs Recent Vital Signs: Last Vital Signs Temp 91.2 F L 09/09/17 06:28 Pulse 108 H 09/09/17 06:33 Resp 20 09/09/17 06:33 BP 137/66 09/09/17 06:33 Pulse Ox 100 09/09/17 06:33 - Labs Result Diagrams: 09/09/17 05:30 09/09/17 05:30 Labs: Laboratory Results - last 24 hr 09/09/17 06:00 pCO2 57 H pO2 64.0 L HCO3 16.5 L ABG pH 7.07 L* ABG Total CO2 18.2 L ABG O2 Saturation 94.0 L ABG O2 Content 13.0 L ABG Base Excess -13.4 L ABG Hemoglobin 10.1 L ABG Carboxyhemoglobin 2.2 H POC ABG HHb (Measured) 5.8 H ABG Methemoglobin 0.7 ABG O2 Capacity 13.8 L Hgb O2 Saturation 91.4 L FiO2 100.0 Assessment & Plan - Assessment and Plan (Free Text) Assessment: 72 year old female under ICU management for evaluation of cardiac arrest on levophed gtt and intubated but not sedated. Respiratory acidosis Rule out sepsis Rule out electrolyte abnormalities Rule out trauma Hx Anemia Hx HTN Hx Dementia Hx Hypothyroidism Hx Sacral Decubitus Hx Frequent Falls Hx HLD Plan: Neuro - Intubated not sedated - CT Head - Maintain normothermia - no hypothermia protocol because patient asystole in field Cardio - Levophed drip - titrate accordingly - Fluid resuscitation - Maintain MAP Pulm - Intubated - Maintain sats > 92% - F/u ABG's GI - Protonix for PPX - Maintain euvolemia - Replete electrolytes - SHANTEL - fluid hydration Heme - Hx anemia - management per primary, home venofer - DVT PPX - SCD ID - Septic work up: ruiz-cultures, procalcitonin - Vanc/Zosyn for empiric coverage Endo - TSH - Hx hypothyroidism - mgmt per primary
[2017-09-09] MEDS ORDERED: Insulin Reg-MEDIUM-Coverage SC SCH (07:30)
--- NOTE | 2017-09-09 08:02 | CT ---
EXAM: CT Head Without Intravenous Contrast CLINICAL HISTORY: 72 years old, female; Signs and symptoms; Altered mental status/memory loss and other: Cardiac arrest; Confusion or disorientation; Additional info: AMS cardiac arrest TECHNIQUE: Axial computed tomography images of the head/brain without intravenous contrast. All CT scans at this facility use at least one of these dose optimization techniques: automated exposure control; mA and/or kV adjustment per patient size (includes targeted exams where dose is matched to clinical indication); or iterative reconstruction. Coronal and sagittal reformatted images were created and reviewed. COMPARISON: CT - HEAD W/O CONTRAST 2017-09-04 01:16 FINDINGS: Brain: See below. Ventricles: Unremarkable. No ventriculomegaly. Bones/joints: There is a stable arachnoid cyst in the left middle cranial fossa. No acute fracture. Soft tissues: Unremarkable. Sinuses: Unremarkable as visualized. No acute sinusitis. Mastoid air cells: Unremarkable as visualized. No mastoid effusion. IMPRESSION: No acute findings.
--- NOTE | 2017-09-09 08:09 | CT ---
EXAM: CT Chest Without Intravenous Contrast CLINICAL HISTORY: 72 years old, female; Signs and symptoms; Other: R/O sepsis TECHNIQUE: Axial computed tomography images of the chest without intravenous contrast. All CT scans at this facility use at least one of these dose optimization techniques: automated exposure control; mA and/or kV adjustment per patient size (includes targeted exams where dose is matched to clinical indication); or iterative reconstruction. Coronal and sagittal reformatted images were created and reviewed. COMPARISON: DX - CHEST PORTABLE 2017-09-09 05:30 FINDINGS: Lungs: There is extensive bilateral airspace disease with air bronchograms consistent with bilateral lobar pneumonia. Close clinical and imaging followup is recommended to confirm resolution following treatment. Pleural space: There are moderate bilateral pleural effusions. No pneumothorax. Heart: There is a small pericardial effusion. Bones/joints: Unremarkable. No acute fracture. No dislocation. Soft tissues: There is anasarca. Vasculature: Unremarkable. No thoracic aortic aneurysm. Lymph nodes: Unremarkable. No enlarged lymph nodes. Tubes, lines and devices: There is an endotracheal tube with the tip at the origin of the left mainstem bronchus. This should be retracted 2 cm. IMPRESSION: 1. There is extensive bilateral airspace disease with air bronchograms consistent with bilateral lobar pneumonia. Close clinical and imaging followup is recommended to confirm resolution following treatment. 2. There is an endotracheal tube with the tip at the origin of the left mainstem bronchus. This should be retracted 2 cm. EXAM: CT Abdomen and Pelvis Without Intravenous Contrast CLINICAL HISTORY: 72 years old, female; Signs and symptoms; Other: R/O sepsis TECHNIQUE: Axial computed tomography images of the abdomen and pelvis without intravenous contrast. All CT scans at this facility use at least one of these dose optimization techniques: automated exposure control; mA and/or kV adjustment per patient size (includes targeted exams where dose is matched to clinical indication); or iterative reconstruction. Coronal and sagittal reformatted images were created and reviewed. COMPARISON: CT - ABD PELVIS W/O PO OR IV CONT 2017-08-18 10:24 FINDINGS: Lung bases: Unremarkable. No mass. No consolidation. ABDOMEN: Liver: Unremarkable. Gallbladder and bile ducts: The gallbladder is distended. There is milk of calcium bile within the gallbladder. Followup gallbladder ultrasound is recommended. No ductal dilation. Pancreas: Unremarkable. No ductal dilation. Spleen: Unremarkable. No splenomegaly. Adrenals: Unremarkable. No mass. Kidneys and ureters: Unremarkable. No obstructing stones. No hydronephrosis. Stomach and bowel: There is moderate small bowel wall thickening. Differential diagnosis includes enteritis and ischemia. Close clinical and imaging followup is recommended. Consider postcontrast imaging for further evaluation. There is a large amount of dense stool in the rectosigmoid colon. PELVIS: Appendix: No findings to suggest acute appendicitis. Bladder: There is a Padilla balloon catheter within a collapsed urinary bladder. No stones. Reproductive: The patient is status post hysterectomy. ABDOMEN and PELVIS: Intraperitoneal space: Unremarkable. No free air. No significant fluid collection. Bones/joints: No acute fracture. No dislocation. Soft tissues: There is anasarca. Vasculature: Unremarkable. No abdominal aortic aneurysm. Lymph nodes: Unremarkable. No enlarged lymph nodes. Tubes, lines and devices: There is a nasogastric tube within the stomach. IMPRESSION: 1. The gallbladder is distended. There is milk of calcium bile within the gallbladder. Followup gallbladder ultrasound is recommended. 2. There is moderate small bowel wall thickening. Differential diagnosis includes enteritis and ischemia. Close clinical and imaging followup is recommended. Consider postcontrast imaging for further evaluation. 3. There is anasarca.
[2017-09-09] MEDS: Sodium Chloride 0.9% 1,000 ML IV SCH ×2 (08:30→18:35)
[2017-09-09 08:52] LABS: ARTERIAL BLOOD GAS HCO3 17.1 mmol/L (21-28); ARTERIAL BLOOD GAS O2 SAT 95.4 % (95-98); ARTERIAL BLOOD GAS PCO2 38 mm/Hg (35-45); ARTERIAL BLOOD GAS PH 7.26 (7.35-7.45); ARTERIAL BLOOD GAS TCO2 18.3 mmol.L (22-28)
--- NOTE | 2017-09-09 08:57 | RAD ---
HISTORY: CHEST PAIN COMPARISON: 09/07/2017 at 529 FINDINGS: LUNGS: p.m. Diffuse opacification of the right lung and left perihilar opacity. Nonspecific. Infectious, cardiogenic, inflammatory etiologies should be considered. PLEURA: No significant pleural effusion identified, no pneumothorax apparent. CARDIOVASCULAR: Normal heart size. Please note that 3 separate films are submitted. In the 1st film, the endotracheal tube protrudes into the proximal right mainstem bronchus approximately 1 cm beyond the luis. This film is labeled 5:39 a.m.. A 2nd film labeled 5:46 a.m. demonstrates the endotracheal tube tip at the level of the tracheal luis. A 3rd film labeled 5:50 a.m. demonstrates the endotracheal tube approximately l 4.1 cm above the tracheal luis. A nasogastric tube extends to the upper abdomen. OSSEOUS STRUCTURES: No significant abnormalities. VISUALIZED UPPER ABDOMEN: Normal. OTHER FINDINGS: None. IMPRESSION: Three films demonstrates excessive withdrawal of an endotracheal tube to an appropriate position 4 cm above the tracheal luis. Extensive opacification of the right lung with left perihilar opacity. Nonspecific. See above. Preliminary interpretation of this examination was reported by [facility] at 7:07 a.m. on 09/09/2017. There is concurrence of this report with the preliminary interpretation.
[2017-09-09] MEDS ORDERED: Meropenem 500 MG in Sodium Chloride 0.9% 50 ML IVPB SCH (09:15)
--- NOTE | 2017-09-09 09:17 | CP.PCM.HP ---
History of Present Illness - History of Present Illness History of Present Illness: Medicine H&P for Dr. Orozco's service - Jesse Zelaya PGY3 HPI: Patient is a 72yo female with past medical history of hypertension, dementia, hypothyroidism, recurrent falls that presented to [facility] s/p cardiac arrest. She was found pulseless and unresponsive in her [facility] home room. BLS was initiated and EMS was called. She received 4 rounds of epinephrine and one of bicarb and intubated in the field, at which point ROSC was achieved. Once transported to [facility], she was found to be pulseless once again and received 2 more epi and 1 of bicarb. She was started on levophed drip and broad spectrum antibiotics. She was recently admitted to [facility] for syncope which was attributed to bradycardia due to her coreg medication which has since been discontinued. 12point ROS limited due to patient status. 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, PICC line Allergies: nifedipine Family Hx: Non-contributory Social Hx: No history of alcohol, tobacco or illicit drug use Present on Admission - Present on Admission Any Indicators Present on Admission: No Past Patient History - Infectious Disease Hx of Infectious Diseases: None - Past Medical History & Family History Past Medical History?: Yes - Past Social History Smoking Status: Former Smoker - CARDIAC Hx Cardiac Disorders: Yes Hx Hypertension: Yes - PULMONARY Hx Respiratory Disorders: No - NEUROLOGICAL Hx Neurological Disorder: Yes Hx Dementia: Yes Hx Dizziness: Yes Other/Comment: syncope - HEENT Hx HEENT Problems: No - RENAL Hx Chronic Kidney Disease: No - ENDOCRINE/METABOLIC Hx Diabetes Mellitus Type 2: Yes Hx Hypothyroidism: Yes - HEMATOLOGICAL/ONCOLOGICAL Hx Cancer: No - INTEGUMENTARY Hx Dermatological Problems: Yes - MUSCULOSKELETAL/RHEUMATOLOGICAL Hx Musculoskeletal Disorders: Yes Hx Back Pain: Yes Hx Falls: Yes Hx Osteoarthritis: Yes - GASTROINTESTINAL Hx Gastrointestinal Disorders: No - GENITOURINARY/GYNECOLOGICAL Hx Genitourinary Disorders: Yes Hx Hematuria: Yes Hx Incontinence: Yes Hx Urinary Tract Infection: Yes - PSYCHIATRIC Hx Psychophysiologic Disorder: Yes Hx Anxiety: Yes Hx Substance Use: No - SURGICAL HISTORY Hx Mastectomy: No - ANESTHESIA Hx Anesthesia Reactions: No Hx Malignant Hyperthermia: No Meds Allergies/Adverse Reactions: Allergies Allergy/AdvReac Type Severity Reaction Status Date / Time nifedipine AdvReac Severe hypotension, Verified 07/29/17 19:31 bradycardia, CHF Physical Exam - Constitutional Appears: In Acute Distress, Chronically Ill - Head Exam Head Exam: ATRAUMATIC, NORMOCEPHALIC - ENT Exam ENT Exam: Mucous Membranes Moist - Respiratory Exam Respiratory Exam: Rhonchi. absent: Clear to Auscultation Bilateral, Rales, Wheezes - Cardiovascular Exam Cardiovascular Exam: +S1, +S2. absent: Gallop, Rubs - GI/Abdominal Exam GI & Abdominal Exam: Soft. absent: Diminished Bowel Sounds, Distended, Firm, Guarding, Tenderness - Neurological Exam Additional comments: intubated and unresponsive with no sedation - Skin Skin Exam: Dry, Intact, Normal Color, Warm Results - Vital Signs Recent Vital Signs: Last Vital Signs Temp 91.2 F L 09/09/17 06:28 Pulse 72 09/09/17 07:25 Resp 20 09/09/17 06:33 BP 137/66 09/09/17 06:33 Pulse Ox 100 09/09/17 06:33 - Labs Result Diagrams: 09/09/17 05:30 09/09/17 05:30 Labs: Laboratory Results - last 24 hr 09/09/17 09/09/17 09/09/17 06:00 06:20 08:30 pCO2 57 H 38 pO2 64.0 L 60.0 L HCO3 16.5 L 17.1 L ABG pH 7.07 L* 7.26 L ABG Total CO2 18.2 L 18.3 L ABG O2 Saturation 94.0 L 95.4 ABG O2 Content 13.0 L ABG Base Excess -13.4 L -9.3 L ABG Hemoglobin 10.1 L ABG Carboxyhemoglobin 2.2 H POC ABG HHb (Measured) 5.8 H ABG Methemoglobin 0.7 ABG O2 Capacity 13.8 L ABG Potassium 4.1 Hgb O2 Saturation 91.4 L Sodium 148.0 Chloride 122.0 H Glucose 314 H Lactate 2.6 H Mechanical Rate 20 FiO2 100.0 100.0 Tidal Volume 450 PEEP 5 Arterial Blood Potassium 4.1 Influenza Typ A,B (EIA) Negative for flu a/b Assessment & Plan - Assessment and Plan (Free Text) Plan: 72yo female with history of hypertension, hypothyroidism, recurrent falls admitted to the ICU s/p cardiac arrest 1. Cardiac arrest 2. Respiratory acidosis 3. r/o sepsis; prior urine culture positive for ecoli 4. Hx Anemia 5. Hx HTN 6. Hx Dementia 7. Hx Hypothyroidism 8. Hx HLD -Presently the patient is intubated on PRVC on nimbex and propofol -She was started on levophed drip to maintain MAP > 65. -She is on broad spectrum antibiotics and pancultures are pending -Insulin sliding scale coverage with fingersticks q6h have been ordered -Echocardiogram is pending -CT Chest/Abdomen/Pelvis was reviewed and revealed distended GB, moderate SB wall thickening, anasarca; see full report for further details -Cardiology, infectious disease and neurology have been consulted -She is on protonix for GI prophylaxis and SCD's for DVT prophylaxis -CT Head revealed no acute intracranial abnormalities -CXR revealed diffuse opacification of the right lung and left perihilar opacity ; see full report -EKG reviewed; revealed sinus tachycardia with nonspecific T wave abnormality Patient seen and case discussed/reviewed with attending, Dr. Orozco
[2017-09-09] MEDS ORDERED: Cisatracurium Besylate 200 MG in Sodium Chloride 0.9% 250 ML IV PRN (09:24)
--- NOTE | 2017-09-09 09:28 | CARD ---
APPROVED REPORT EKG Measurement Heart [id number] ID [id number] <Conclusion> Normal sinus rhythm Nonspecific ST abnormality No change
[2017-09-09] MEDS ORDERED: Vancomycin 1gm in NS 250ml 1 GM/250 ML BAG IVPB SCH (10:00)
[2017-09-09] MEDS: Propofol 10 mg/ml 1,000 MG/100 ML VIAL IV PRN (10:10)
--- NOTE | 2017-09-09 11:15 | CP.CCUPN ---
<Sky Verdugo - Last Filed: 09/09/17 13:00> CCU Subjective - Physician Review Subjective (Free Text): Sky Verdugo PGY2 ICU Progress Note for Dr. Galdamez Patient was seen and examined at bedside in ICU. She is on sedation and paralytic agent for proper low tidal volume ventilation. Patient is s/p cardiac arrest due to asystole and is on post-ROSC cooling therapy. ROS was not obtained due to intubation. CCU Objective - Vital Signs / Intake & Output Vital Signs (Last 4 hours): Vital Signs Temp Pulse Resp BP Pulse Ox 09/09/17 11:00 91.2 F L 66 112/46 L 100 09/09/17 10:50 91.2 F L 67 100 09/09/17 10:40 91.2 F L 66 100 09/09/17 10:30 91.2 F L 66 127/58 L 100 09/09/17 10:28 91.2 F L 67 125/62 100 09/09/17 10:25 91.2 F L 67 09/09/17 10:20 91.2 F L 67 100 09/09/17 10:12 91.2 F L 65 103/59 L 100 09/09/17 10:10 91.2 F L 65 101/52 L 100 09/09/17 10:05 91.0 F L 65 16 100 09/09/17 10:04 91.0 F L 74 19 100 09/09/17 10:03 91.0 F L 65 8 L 100 09/09/17 10:02 91.0 F L 65 9 L 100 09/09/17 10:01 91.0 F L 65 8 L 100 09/09/17 10:00 91.0 F L 65 9 L 100 09/09/17 09:59 91.0 F L 65 8 L 100 09/09/17 09:58 91.0 F L 65 100 09/09/17 09:57 91.0 F L 65 16 100 09/09/17 09:56 91.0 F L 65 100 09/09/17 09:55 91.0 F L 65 100 09/09/17 09:54 91.0 F L 65 5 L 100 09/09/17 09:53 91.0 F L 65 5 L 100 09/09/17 09:52 91.0 F L 65 100 09/09/17 09:51 91.0 F L 65 100 09/09/17 09:50 91.0 F L 65 9 L 100 09/09/17 09:49 91.0 F L 65 8 L 100 09/09/17 09:48 91.0 F L 65 4 L 09/09/17 09:47 91.0 F L 09/09/17 09:45 91.0 F L 65 6 L 09/09/17 09:44 91.0 F L 65 11 L 09/09/17 09:43 90.9 F L 65 5 L 09/09/17 09:42 90.9 F L 65 09/09/17 09:41 90.9 F L 65 09/09/17 09:40 90.9 F L 65 15 09/09/17 09:39 90.9 F L 65 09/09/17 09:38 90.9 F L 66 10 L 09/09/17 09:37 90.9 F L 66 6 L 09/09/17 09:36 90.9 F L 66 9 L 09/09/17 09:35 90.9 F L 66 34 H 09/09/17 09:34 90.9 F L 66 09/09/17 09:33 90.9 F L 65 09/09/17 09:32 90.9 F L 65 09/09/17 09:31 90.9 F L 65 09/09/17 09:30 90.9 F L 65 09/09/17 07:25 72 Intake and Output (Last 8hrs): Intake & Output 09/08/17 09/09/17 09/09/17 22:59 06:59 14:59 Intake Total 11 Balance 11 Intake: IV 11 - Physical Exam Physical Exam Limitations: Positive for: Altered Mental Status Head: Positive for: Atraumatic, Normocephalic Pupils: Positive for: Non-Reactive, Other (dilated) Conjunctiva: Positive for: Normal Mouth: Positive for: Moist Mucous Membranes, Other (intubated) Nose (External): Positive for: Other (NG tube in place) Respiratory/Chest: Positive for: Other (Coarse breath sound bilateraqlly). Negative for: Wheezes Cardiovascular: Positive for: Regular Rate and Rhythm, Normal S1, S2 Abdomen: Positive for: Normal Bowel Sounds, Other (Obese) Back: Positive for: Normal Inspection Upper Extremity: Positive for: Normal Inspection. Negative for: Cyanosis, Edema Lower Extremity: Positive for: Other (L foot dressed by Dr. Anderson for ulcer). Negative for: Edema Neurological: Positive for: Other (Unresponsive) Skin: Positive for: Dry. Negative for: Warm (Upper and lower extremities cool to touch), Rashes - Medications Active Medications: Active Medications Generic Name Dose Route Start Last Admin Trade Name Freq PRN Reason Stop Dose Admin Norepinephrine Bitartrate 8 mg 508 mls @ 15.24 mls/hr 09/09/17 06:01 10:12 / Sodium Chloride IV 6 mcg/min .Q24H PRN 22.86 mls/hr TITRATE PER MD ORDER Titration Protocol 4 MCG/MIN Sodium Chloride 1,000 mls @ 100 mls/hr 09/09/17 06:30 Sodium Chloride 0.9% IV .Q10H NIDHI Vancomycin HCl 1 gm in 250 mls @ 167 mls/hr 09/09/17 10:00 Vancomycin 1gm IVPB DAILY NIDHI Protocol Meropenem 500 mg/ Sodium 50 mls @ 100 mls/hr 09/09/17 09:15 09/09/17 10:42 Chloride IVPB 09/09/17 14:29 100 mls/hr Q8 NIDHI Administration Protocol Propofol 1,000 mg in 100 mls @ 2.693 mls/hr 09/09/17 09:21 09/09/17 10:10 Diprivan IV 5 mcg/kg/min .Q24H PRN 2.693 mls/hr TITRATE PER MD ORDER Administration Protocol 5 MCG/KG/MIN Cisatracurium Besylate 200 mg/ 270 mls @ 7.27 mls/hr 09/09/17 09:24 Sodium Chloride IV .Q24H PRN TITRATE PER MD ORDER Protocol 1 MCG/KG/MIN Insulin Human Regular 0 units 09/09/17 12:00 Humulin R Med SC Q6 NIDHI Protocol Pantoprazole Sodium 40 mg 09/09/17 10:00 09/09/17 10:45 Protonix Inj IVP 40 mg DAILY [facility] Administration - Patient Studies Lab Studies: Lab Studies 09/09/17 09/09/1709/09/18 Range/Units 09:13 08:30 06:20 pCO2 38 (35-45) mm/Hg pO2 60.0 L (80-100) mm/Hg HCO3 17.1 L (21-28) mmol/L ABG pH 7.26 L (7.35-7.45) ABG Total CO2 18.3 L (22-28) mmol.L ABG O2 Saturation 95.4 (95-98) % ABG O2 Content (15-23) ML/dl ABG Base Excess -9.3 L (-2.0-3.0) mmol/L ABG Hemoglobin (11.7-17.4) g/dL ABG Carboxyhemoglobin (0.5-1.5) % POC ABG HHb (Measured) (0-5) % ABG Methemoglobin (0.0-3.0) % ABG O2 Capacity (16-24) mL/dl ABG Potassium 4.1 (3.6-5.2) mmol/L Hgb O2 Saturation (95.0-98.0) % Sodium 148.0 (132-148) mmol/L Chloride 122.0 H (98-107) mmol/L Glucose 314 H (65-105) mg/dl Lactate 2.6 H (0.7-2.1) mmol/L Mechanical Rate 20 FiO2 100.0 % Tidal Volume 450 PEEP 5 POC Glucose (mg/dL) 303 H (65-110) mg/dL Arterial Blood Potassium 4.1 (3.6-5.2) mmol/L Influenza Typ A,B (EIA) Negative for flu a/b (NEGATIVE) 09/09/17 Range/Units 06:00 pCO2 57 H (35-45) mm/Hg pO2 64.0 L (80-100) mm/Hg HCO3 16.5 L (21-28) mmol/L ABG pH 7.07 L* (7.35-7.45) ABG Total CO2 18.2 L (22-28) mmol.L ABG O2 Saturation 94.0 L (95-98) % ABG O2 Content 13.0 L (15-23) ML/dl ABG Base Excess -13.4 L (-2.0-3.0) mmol/L ABG Hemoglobin 10.1 L (11.7-17.4) g/dL ABG Carboxyhemoglobin 2.2 H (0.5-1.5) % POC ABG HHb (Measured) 5.8 H (0-5) % ABG Methemoglobin 0.7 (0.0-3.0) % ABG O2 Capacity 13.8 L (16-24) mL/dl ABG Potassium (3.6-5.2) mmol/L Hgb O2 Saturation 91.4 L (95.0-98.0) % Sodium (132-148) mmol/L Chloride (98-107) mmol/L Glucose (65-105) mg/dl Lactate (0.7-2.1) mmol/L Mechanical Rate FiO2 100.0 % Tidal Volume PEEP POC Glucose (mg/dL) (65-110) mg/dL Arterial Blood Potassium (3.6-5.2) mmol/L Influenza Typ A,B (EIA) (NEGATIVE) Laboratory Results - last 24 hr 09/09/17 09/09/17 09/09/17 06:00 06:20 08:30 pCO2 57 H 38 pO2 64.0 L 60.0 L HCO3 16.5 L 17.1 L ABG pH 7.07 L* 7.26 L ABG Total CO2 18.2 L 18.3 L ABG O2 Saturation 94.0 L 95.4 ABG O2 Content 13.0 L ABG Base Excess -13.4 L -9.3 L ABG Hemoglobin 10.1 L ABG Carboxyhemoglobin 2.2 H POC ABG HHb (Measured) 5.8 H ABG Methemoglobin 0.7 ABG O2 Capacity 13.8 L ABG Potassium 4.1 Hgb O2 Saturation 91.4 L Sodium 148.0 Chloride 122.0 H Glucose 314 H Lactate 2.6 H Mechanical Rate 20 FiO2 100.0 100.0 Tidal Volume 450 PEEP 5 POC Glucose (mg/dL) Arterial Blood Potassium 4.1 Influenza Typ A,B (EIA) Negative for flu a/b 09/09/17 09:13 pCO2 pO2 HCO3 ABG pH ABG Total CO2 ABG O2 Saturation ABG O2 Content ABG Base Excess ABG Hemoglobin ABG Carboxyhemoglobin POC ABG HHb (Measured) ABG Methemoglobin ABG O2 Capacity ABG Potassium Hgb O2 Saturation Sodium Chloride Glucose Lactate Mechanical Rate FiO2 Tidal Volume PEEP POC Glucose (mg/dL) 303 H Arterial Blood Potassium Influenza Typ A,B (EIA) Fingerstick Blood Sugar Results: 321 Review of Systems - Review of Systems Systems not reviewed;Unavailable: Intubated Critical Care Progress Note - Ventilator Checklist Head of Bed 30 Degrees: Yes Daily Sedation Vacation: Yes Daily Assessment of Readiness to Wean: Yes Daily Spontaneous Breathing Trial: Yes PUD Prophalyxis: Yes DVT Prophylaxis: Yes Oral Care with Chlorhexidine Gluconate {CHG}: Yes - Vent Settings MODE:: PRVC TIDAL VOLUME:: 380 RESP RATE:: 24 FIO2:: 100 PEEP:: 24 - Extremities/Vascular Does the Patient have a Central Venous Catheter?: Yes Insertion Site: Femoral Vein (left) Does the Patient need a Central Venous Catheter?: Yes Does the Patient have a Padilla Catheter?: Yes Does the Patient need a Padilla Catheter?: Yes Catheter Insertion Criteria: Patient requires prolonged immobilization - Prophylaxis GI Prophylaxis GI: PPI - Prophylaxis DVT Prophylaxis DVT: SCDs - Nutrition Nutrition: Nutrition Category Date Time Status NPO Diet [DIET] Diets 09/09/17 Breakfast Ordered Assessment/Plan - Assessment and Plan (Free Text) Assessment: 72 y/o AAF with a PMH of Hypertension, DM2, hypothyroidism, sacral decubitus, recurrent falls who presents from skilled nursing after being found unresponsive ( downtime unknown), with no pulses and in asystole. ACLS was intiated and ROSC obtained (please see ED notes and ICU consult note for further information). She was transffered to ICU for further management. Patient requiring pressors for BP support. Patient is intubated and being ventilated using a low tidal volume ventilation strategy for ARDS; sedation and paralytic agents are being used. Patient is an on antibiotic therapy. Due to unknown downtime, neuro is consulted for possible anoxic injury. Infectious causes of sepsis and being worked up. Echo was ordered to evaluate heart function. Plan: Neuro Continue propofol for sedation Continue Nimbex as paralytic agent for proper low tidal volume ventilation (BIS system being used close) Neurology is consulted, recs appreciated Maintaining hypothermia due to post cardiac arrest regimen with goal of 92-94F CT head was negative for acute bleeds CV Cardio is consulted, recs appreciated Continue levophed as pressor support Goal MAP > 65 Left femoral TLC in place; IO is removed from left shoulder Continue NS at 100 cc/h Echo is pending Pulm CT of chest showed extensive bilateral airspace disease with air bronchograms consistent with bilateral lobar pneumonia ET tube in place Continue low tidal volume ventilation with TV 380, RR 24, FiO2 100%, PEEP 14 Urine Legionella and strep ordered Procol ordered Continue IV antibiotics, ID is consulted, recs appreciated Maintain head of Bed > 30 Daily oral Care, suction PRN DVT/GI PPX GI CT abdomen/pelvis showed distended gallbladder, moderate small bowel thickening and anasarca NPO NGT in place for meds/feeds GI ppx Renal Monitor urine output Via Padilla Urine culture ordered Monitor electrolytes daily and replete as necessary ID ID is consulted, recs appreciated Continue antibiotics per ID Blood and urine cultures ordered MRSA screen ordered Sputum culture ordered Heme Leukocytosis is noted, with no bandemia Anemia is noted but improved from prior visits DVT PPX Endo TSH is elevated maintain euglycemia given hx of DM2 ISS and Accuchecks Q6 Dispo: continue ICU management. Daily sedation and vent weaning trials. Case was reviewed and discussed with attending, Dr. Galdamez <Germain Galdamez - Last Filed: 09/09/17 13:43> CCU Objective - Vital Signs / Intake & Output Vital Signs (Last 4 hours): Vital Signs Temp Pulse Resp BP Pulse Ox 09/09/17 11:00 91.2 F L 66 112/46 L 100 09/09/17 10:50 91.2 F L 67 100 09/09/17 10:40 91.2 F L 66 100 09/09/17 10:30 91.2 F L 66 127/58 L 100 09/09/17 10:28 91.2 F L 67 125/62 100 09/09/17 10:25 91.2 F L 67 09/09/17 10:20 91.2 F L 67 100 09/09/17 10:12 91.2 F L 65 103/59 L 100 09/09/17 10:10 91.2 F L 65 101/52 L 100 09/09/17 10:05 91.0 F L 65 16 100 09/09/17 10:04 91.0 F L 74 19 100 09/09/17 10:03 91.0 F L 65 8 L 100 09/09/17 10:02 91.0 F L 65 9 L 100 09/09/17 10:01 91.0 F L 65 8 L 100 09/09/17 10:00 91.0 F L 65 9 L 100 09/09/17 09:59 91.0 F L 65 8 L 100 09/09/17 09:58 91.0 F L 65 100 09/09/17 09:57 91.0 F L 65 16 100 09/09/17 09:56 91.0 F L 65 100 09/09/17 09:55 91.0 F L 65 100 09/09/17 09:54 91.0 F L 65 5 L 100 09/09/17 09:53 91.0 F L 65 5 L 100 09/09/17 09:52 91.0 F L 65 100 09/09/17 09:51 91.0 F L 65 100 09/09/17 09:50 91.0 F L 65 9 L 100 09/09/17 09:49 91.0 F L 65 8 L 100 09/09/17 09:48 91.0 F L 65 4 L 100 09/09/17 09:47 91.0 F L 100 09/09/17 09:45 91.0 F L 65 6 L 100 09/09/17 09:44 91.0 F L 65 11 L 100 09/09/17 09:43 90.9 F L 65 5 L 100 09/09/17 09:42 90.9 F L 65 100 09/09/17 09:41 90.9 F L 65 100 09/09/17 09:40 90.9 F L 65 15 100 09/09/17 09:39 90.9 F L 65 100 09/09/17 09:38 90.9 F L 66 10 L 100 09/09/17 09:37 90.9 F L 66 6 L 100 09/09/17 09:36 90.9 F L 66 9 L 100 09/09/17 09:35 90.9 F L 66 34 H 100 09/09/17 09:34 90.9 F L 66 100 09/09/17 09:33 90.9 F L 65 100 Intake and Output (Last 8hrs): Intake & Output 09/08/17 09/09/17 09/09/17 22:59 06:59 14:59 Intake Total 91 Balance 91 Intake: IV 91 - Medications Active Medications: Active Medications Generic Name Dose Route Start Last Admin Trade Name Freq PRN Reason Stop Dose Admin Heparin Sodium (Porcine) 5,000 units 09/09/17 22:00 Heparin SC Q12 [facility] Protocol Norepinephrine Bitartrate 8 mg 508 mls @ 15.24 mls/hr 09/09/17 06:01 11:46 / Sodium Chloride IV 8 mcg/min .Q24H PRN 30.48 mls/hr TITRATE PER MD ORDER Titration Protocol 4 MCG/MIN Sodium Chloride 1,000 mls @ 100 mls/hr 09/09/17 06:30 Sodium Chloride 0.9% IV .Q10H NIDHI Propofol 1,000 mg in 100 mls @ 2.693 mls/hr 09/09/17 09:21 09/09/17 12:11 Diprivan IV 0 mcg/kg/min .Q24H PRN 0 mls/hr TITRATE PER MD ORDER Titration Protocol 5 MCG/KG/MIN Cisatracurium Besylate 200 mg/ 270 mls @ 7.27 mls/hr 09/09/17 09:24 Sodium Chloride IV .Q24H PRN TITRATE PER MD ORDER Protocol 1 MCG/KG/MIN Meropenem 500 mg/ Sodium 50 mls @ 100 mls/hr 09/09/17 22:00 Chloride IVPB 09/18/17 22:01 Q12 [facility] Protocol Vancomycin HCl 500 mg in 100 mls @ 200 mls/hr 09/09/17 22:00 Vancomycin 500mg In Ns IVPB 09/18/17 22:01 Q12 [facility] Protocol Insulin Human Regular 0 units 09/09/17 12:00 09/09/17 12:38 Humulin R Med SC 7 units Q6 [facility] Administration Protocol Pantoprazole Sodium 40 mg 09/09/17 10:00 09/09/17 10:45 Protonix Inj IVP 40 mg DAILY [facility] Administration - Patient Studies Lab Studies: Lab Studies 09/09/17 09/09/17 09/09/17 Range/Units 12:36 09:13 08:30 pCO2 38 (35-45) mm/Hg pO2 60.0 L (80-100) mm/Hg HCO3 17.1 L (21-28) mmol/L ABG pH 7.26 L (7.35-7.45) ABG Total CO2 18.3 L (22-28) mmol.L ABG O2 Saturation 95.4 (95-98) % ABG O2 Content (15-23) ML/dl ABG Base Excess -9.3 L (-2.0-3.0) mmol/L ABG Hemoglobin (11.7-17.4) g/dL ABG Carboxyhemoglobin (0.5-1.5) % POC ABG HHb (Measured) (0-5) % ABG Methemoglobin (0.0-3.0) % ABG O2 Capacity (16-24) mL/dl ABG Potassium 4.1 (3.6-5.2) mmol/L Hgb O2 Saturation (95.0-98.0) % Sodium 148.0 (132-148) mmol/L Chloride 122.0 H (98-107) mmol/L Glucose 314 H (65-105) mg/dl Lactate 2.6 H (0.7-2.1) mmol/L Mechanical Rate 20 FiO2 100.0 % Tidal Volume 450 PEEP 5 POC Glucose (mg/dL) 349 H 303 H (65-110) mg/dL Arterial Blood Potassium 4.1 (3.6-5.2) mmol/L Influenza Typ A,B (EIA) (NEGATIVE) 09/09/17 09/09/17 Range/Units 06:20 06:00 pCO2 57 H (35-45) mm/Hg pO2 64.0 L (80-100) mm/Hg HCO3 16.5 L (21-28) mmol/L ABG pH 7.07 L* (7.35-7.45) ABG Total CO2 18.2 L (22-28) mmol.L ABG O2 Saturation 94.0 L (95-98) % ABG O2 Content 13.0 L (15-23) ML/dl ABG Base Excess -13.4 L (-2.0-3.0) mmol/L ABG Hemoglobin 10.1 L (11.7-17.4) g/dL ABG Carboxyhemoglobin 2.2 H (0.5-1.5) % POC ABG HHb (Measured) 5.8 H (0-5) % ABG Methemoglobin 0.7 (0.0-3.0) % ABG O2 Capacity 13.8 L (16-24) mL/dl ABG Potassium (3.6-5.2) mmol/L Hgb O2 Saturation 91.4 L (95.0-98.0) % Sodium (132-148) mmol/L Chloride (98-107) mmol/L Glucose (65-105) mg/dl Lactate (0.7-2.1) mmol/L Mechanical Rate FiO2 100.0 % Tidal Volume PEEP POC Glucose (mg/dL) (65-110) mg/dL Arterial Blood Potassium (3.6-5.2) mmol/L Influenza Typ A,B (EIA) Negative for flu a/b (NEGATIVE) Laboratory Results - last 24 hr 09/09/17 09/09/17 09/09/17 06:00 06:20 08:30 pCO2 57 H 38 pO2 64.0 L 60.0 L HCO3 16.5 L 17.1 L ABG pH 7.07 L* 7.26 L ABG Total CO2 18.2 L 18.3 L ABG O2 Saturation 94.0 L 95.4 ABG O2 Content 13.0 L ABG Base Excess -13.4 L -9.3 L ABG Hemoglobin 10.1 L ABG Carboxyhemoglobin 2.2 H POC ABG HHb (Measured) 5.8 H ABG Methemoglobin 0.7 ABG O2 Capacity 13.8 L ABG Potassium 4.1 Hgb O2 Saturation 91.4 L Sodium 148.0 Chloride 122.0 H Glucose 314 H Lactate 2.6 H Mechanical Rate 20 FiO2 100.0 100.0 Tidal Volume 450 PEEP 5 POC Glucose (mg/dL) Arterial Blood Potassium 4.1 Influenza Typ A,B (EIA) Negative for flu a/b 09/09/17 09/09/17 09:13 12:36 pCO2 pO2 HCO3 ABG pH ABG Total CO2 ABG O2 Saturation ABG O2 Content ABG Base Excess ABG Hemoglobin ABG Carboxyhemoglobin POC ABG HHb (Measured) ABG Methemoglobin ABG O2 Capacity ABG Potassium Hgb O2 Saturation Sodium Chloride Glucose Lactate Mechanical Rate FiO2 Tidal Volume PEEP POC Glucose (mg/dL) 303 H 349 H Arterial Blood Potassium Influenza Typ A,B (EIA) Critical Care Progress Note - Nutrition Nutrition: Nutrition Category Date Time Status NPO Diet [DIET] Diets 09/09/17 Breakfast Ordered Assessment/Plan - Assessment and Plan (Free Text) Plan: Patient seen and examined on rounds with resident, agree with note with following additions/exceptions: Patient is 72yo female with PMhx of dementia, Hypertension, DM2, hypothyroidism , sacral decubitus, recurrent falls, presented from NH s/p cardiac arrest, asystole, unknown downtime, intubated in the field, had another cardiac arrest in the hospital, asystole, ROSC obtained. Currently intubated, sedated. Labs and imaging reviewed, shows diffuse bilateral infiltrates with P/F ratio 60 on FiO2 100%, likely consistent with ARDS. Ventilator adjusted to reflect low tidal vol ventilation, High PEEP, patient paralyzed with Nimbex. Pt core body temp hypothermic, 92.7 Pts family at bedside, made aware of clinical status. Pt remains on PRVC 100%/ PEEP 14/TV 360/RR 24, repeat ABG and CXR pending Pt remains on vasopressor support, stress dose steroids added. Overall prognosis is extremely poor. PNA ARDS Cardiac Arrest s/p ROSC Septic Shock Hypoxic resp failure Recommend: - cont with vent support, low tidal ventilation, ARDSNET protocol, high PEEP, daily ABGs, CXR, paralytics, monitor BIS, adequate sedation - broad spectrum abx, Vanco, Merrem, ID consult, check Procal, cultures, sputum culture - Vasopressor suport, stress dose tseroids Solucortef - monitor HH - FS control - sedation - monitor renal function - keep NPO - HOB 30 deg elevated - GI ppx - DVT ppx - Overall prognosis poor - Monitor in MICU Critical care time 45 minutes
[2017-09-09] MEDS: Insulin Reg-MEDIUM-Coverage SC SCH ×2 (12:38→18:30)
--- NOTE | 2017-09-09 13:03 | CP.PCM.CON ---
History of Present Illness - History of Present Illness History of Present Illness: Neurology Consult note for Dr. Maravilla CC: baseline dementia, s/p cardiac arrest HPI: 71 year old female with past medical history of HTN, demenita, hypothyroidism, reccurent falls and recent history of syncope and anemia who preesnted to [facility] ED s/p cardiac arrest. Patient is resident of [facility] where this morning she was found unresponsive and without pulse. ACLS was preformed with four rounds of epi, one amp of bicarb and patient was intubated. Patient was able to achieve ROSC. Bryce was transported to [facility] via ambulance when upon arrival she was found to be PEA. ACLS was preformed with 2 rounds of epi and one amp of bicard before ROSC achieved. Patient was stabilized and admitted to ICU. Levophed drip was started. Patient total time down is difficult to assess with limited report from group home. Patient initial temperature upon arrival was low, patient currently with temperature of 94. Currently being treated for ARDS, sedated and intubated. Review of Systems - Review of Systems Systems not reviewed;Unavailable: Intubated (and sedated) Past Patient History - Infectious Disease Hx of Infectious Diseases: None - Past Medical History & Family History Past Medical History?: Yes - Past Social History Smoking Status: Former Smoker - CARDIAC Hx Cardiac Disorders: Yes Hx Hypertension: Yes - PULMONARY Hx Respiratory Disorders: No - NEUROLOGICAL Hx Neurological Disorder: Yes Hx Dementia: Yes Hx Dizziness: Yes Other/Comment: syncope - HEENT Hx HEENT Problems: No - RENAL Hx Chronic Kidney Disease: No - ENDOCRINE/METABOLIC Hx Diabetes Mellitus Type 2: Yes Hx Hypothyroidism: Yes - HEMATOLOGICAL/ONCOLOGICAL Hx Cancer: No - INTEGUMENTARY Hx Dermatological Problems: Yes - MUSCULOSKELETAL/RHEUMATOLOGICAL Hx Musculoskeletal Disorders: Yes Hx Back Pain: Yes Hx Falls: Yes Hx Osteoarthritis: Yes - GASTROINTESTINAL Hx Gastrointestinal Disorders: No - GENITOURINARY/GYNECOLOGICAL Hx Genitourinary Disorders: Yes Hx Hematuria: Yes Hx Incontinence: Yes Hx Urinary Tract Infection: Yes - PSYCHIATRIC Hx Psychophysiologic Disorder: Yes Hx Anxiety: Yes Hx Substance Use: No - SURGICAL HISTORY Hx Mastectomy: No - ANESTHESIA Hx Anesthesia Reactions: No Hx Malignant Hyperthermia: No Meds Allergies/Adverse Reactions: Allergies Allergy/AdvReac Type Severity Reaction Status Date / Time nifedipine AdvReac Severe hypotension, Verified 07/29/17 19:31 bradycardia, CHF - Medications Medications: Current Medications Norepinephrine Bitartrate 8 mg (/ Sodium Chloride) 508 mls @ 15.24 mls/hr IV .Q24H PRN; Protocol; 4 MCG/MIN PRN Reason: TITRATE PER MD ORDER Last Titration: 09/09/17 11:46 Dose: 8 mcg/min, 30.48 mls/hr Sodium Chloride (Sodium Chloride 0.9%) 1,000 mls @ 100 mls/hr IV .Q10H NIDHI Propofol (Diprivan) 1,000 mg in 100 mls @ 2.693 mls/hr IV .Q24H PRN; Protocol; 5 MCG/KG/MIN PRN Reason: TITRATE PER MD ORDER Last Titration: 09/09/17 12:11 Dose: 0 mcg/kg/min, 0 mls/hr Cisatracurium Besylate 200 mg/ (Sodium Chloride) 270 mls @ 7.27 mls/hr IV .Q24H PRN; Protocol; 1 MCG/KG/MIN PRN Reason: TITRATE PER MD ORDER Meropenem 500 mg/ Sodium (Chloride) 50 mls @ 100 mls/hr IVPB Q12 NIDHI PRN Reason: Protocol Stop: 09/18/17 22:01 Vancomycin HCl (Vancomycin 500mg In Ns) 500 mg in 100 mls @ 200 mls/hr IVPB Q12 [facility] PRN Reason: Protocol Stop: 09/18/17 22:01 Insulin Human Regular (Humulin R Med) 0 units SC Q6 NIDHI PRN Reason: Protocol Last Admin: 09/09/17 12:38 Dose: 7 units Pantoprazole Sodium (Protonix Inj) 40 mg IVP DAILY [facility] Last Admin: 09/09/17 10:45 Dose: 40 mg Physical Exam - Head Exam Head Exam: ATRAUMATIC, NORMAL INSPECTION, NORMOCEPHALIC - ENT Exam ENT Exam: Mucous Membranes Moist - Respiratory Exam Respiratory Exam: Clear to Auscultation Bilateral, NORMAL BREATHING PATTERN - Cardiovascular Exam Cardiovascular Exam: REGULAR RHYTHM, +S1, +S2 - Neurological Exam Additional comments: intubated, sedated and paralyzed Fixed and dilated pupils, non reactive to light absent corneal reflex, absent gag, pupillary reflex Patient able to initiate breath - Skin Skin Exam: Dry, Intact Results - Vital Signs Recent Vital Signs: Last Vital Signs Temp 91.2 F L 09/09/17 11:00 Pulse 66 09/09/17 11:00 Resp 16 09/09/17 10:05 BP 112/46 L 09/09/17 11:00 Pulse Ox 100 09/09/17 11:00 - Labs Result Diagrams: 09/09/17 05:30 09/09/17 05:30 Labs: Laboratory Results - last 24 hr 09/09/17 09/09/17 09/09/17 06:00 06:20 08:30 pCO2 57 H 38 pO2 64.0 L 60.0 L HCO3 16.5 L 17.1 L ABG pH 7.07 L* 7.26 L ABG Total CO2 18.2 L 18.3 L ABG O2 Saturation 94.0 L 95.4 ABG O2 Content 13.0 L ABG Base Excess -13.4 L -9.3 L ABG Hemoglobin 10.1 L ABG Carboxyhemoglobin 2.2 H POC ABG HHb (Measured) 5.8 H ABG Methemoglobin 0.7 ABG O2 Capacity 13.8 L ABG Potassium 4.1 Hgb O2 Saturation 91.4 L Sodium 148.0 Chloride 122.0 H Glucose 314 H Lactate 2.6 H Mechanical Rate 20 FiO2 100.0 100.0 Tidal Volume 450 PEEP 5 POC Glucose (mg/dL) Arterial Blood Potassium 4.1 Influenza Typ A,B (EIA) Negative for flu a/b 09/09/17 09/09/17 09:13 12:36 pCO2 pO2 HCO3 ABG pH ABG Total CO2 ABG O2 Saturation ABG O2 Content ABG Base Excess ABG Hemoglobin ABG Carboxyhemoglobin POC ABG HHb (Measured) ABG Methemoglobin ABG O2 Capacity ABG Potassium Hgb O2 Saturation Sodium Chloride Glucose Lactate Mechanical Rate FiO2 Tidal Volume PEEP POC Glucose (mg/dL) 303 H 349 H Arterial Blood Potassium Influenza Typ A,B (EIA) Assessment & Plan - Assessment and Plan (Free Text) Assessment: 71 year old female with past medical history of HTN, demenita, hypothyroidism, reccurent falls and recent history of syncope and anemia who preesnted to [facility] s/p cardiac arrest. Patient currently undergoing code freeze protocol Hypoxic brain injury - S/p cardiac arrest, unknown total down time - Head CT showing signs of edema and with loss of jones white junction - Maintatin Euglycemia, replete lytes as needed - Maintatin SaO2>90% - Head above 30 degrees - Repeat Head CT Case and plan discussed with attending Cristian Barfield PGY-2 - Date & Time Date: 09/09/17 Time: 11:05
--- NOTE | 2017-09-09 14:27 | RAD ---
HISTORY: ARDS - respiratory condition COMPARISON: September 09, 2017 at 05:53. FINDINGS: LUNGS: Stable asymmetrical pulmonary edema/ ARDS. PLEURA: No significant pleural effusion identified, no pneumothorax apparent. CARDIOVASCULAR: No significant interval change compared to the prior examination(s). OSSEOUS STRUCTURES: No significant abnormalities. VISUALIZED UPPER ABDOMEN: Normal. OTHER FINDINGS: Stable position of endotracheal tube and nasogastric tube. IMPRESSION: Stable asymmetric pulmonary edema/ ARDS. Stable position of support apparatus.
[2017-09-09] MEDS: Nystatin 100,000 Units/gm Topical Pow(15 gm) TOP PRN (15:33)
[2017-09-09 19:02] LABS: PH,URINE 5.5 (4.7-8.0); URINE BILIRUBIN NEGATIVE (NEGATIVE); URINE BLOOD MODERATE (NEGATIVE); URINE GLUCOSE (UA) NEGATIVE (NEGATIVE); URINE LEUKOCYTE ESTERASE LARGE Leu/uL (NEGATIVE); URINE PROTEIN 100 mg/dL (<30 mg/dL); URINE UROBILINOGEN 0.2 E.U./dL (<1 E.U./dL)
[2017-09-09 19:05] LABS: URINE APPEARANCE CLOUDY (CLEAR); URINE COLOR YELLOW (YELLOW)
[2017-09-09 19:34] LABS: URINE AMORPHOUS SEDIMENT FEW; URINE BACTERIA LARGE (NEG)
[2017-09-09 19:35] LABS: URINE RBC TNTC /hpf (0-2); URINE WBC TNTC /hpf (0-6)
[2017-09-09] MEDS: Meropenem 500 MG in Sodium Chloride 0.9% 50 ML IVPB SCH (21:38)
[2017-09-09] MEDS: Vancomycin 500mg in NS 500 MG/100 ML BAG IVPB SCH (21:39)
--- NOTE | 2017-09-10 00:15 | CON ---
DATE: 09/09/2017 REASON FOR CONSULTATION: Cardiac evaluation, status post cardiac arrest, intubated, respiratory failure. BRIEF CLINICAL HISTORY: This is a 72-year-old female with a past medical history of hypertension, dementia, hypothyroidism, resident of [facility], who was recently discharged yesterday from [facility] ([facility]3] to [facility] where she was found to be apneic, pulseless, unresponsive, BLS protocol was initiated. The patient was started on CPR and then four rounds of epinephrine was given. ACLS was started after that and ROSC was achieved. Then, the patient was transferred to [facility] ([facility]3] where the patient was found to be again pulseless, though the patient was intubated at the filed at [facility]. Another CPR was done, after 2 rounds of epi, ROSC was achieved, the patient moved to ICU. Currently, the patient is on ventilator, Levophed. Hemodynamically, relatively stable on Levophed, but no significant neurological reflexes available. No gag reflex available and both pupils are significantly dilated. PAST MEDICAL HISTORY: Significant for hypertension, dementia, hypothyroidism, sacral decubitus, recurrent falls. PAST SURGICAL HISTORY: Significant for access of the I and D; amputation of the left toe, third and fourth digits; status post PICC line. ALLERGIES: NIFEDIPINE. MEDICATIONS AT [facility]: Oxycodone, hydralazine, amlodipine, sucralfate, insulin, clotrimazole, atorvastatin, and aspirin. PERSONAL HISTORY: The patient denies any smoking, denies any history of alcohol abuse in the past. Currently, the patient is on vent and comatose. PHYSICAL EXAMINATION: GENERAL: Height of the patient is 5 feet 6 inches, weight is 196 pounds, body mass index 31.9 kg/m2. VITAL SIGNS: Temperature 91.2, hypothermic; pulse is 66; blood pressure 112/46. HEENT: PERRLA. Extraocular muscles intact. Fixed, dilated pupil. On vent. Intubated. NECK: Supple. No carotid bruit. No thyromegaly. CHEST: Clear to auscultation. Good air entry. HEART: S1 and S2 regular. ABDOMEN: Soft. EXTREMITIES: Clubbing and cyanosis negative. Left ankle is in the dressing, status post amputation of the third and fourth toes. LABORATORY DATA: EKG showed normal sinus, poor R-R progression, nonspecific ST-T changes noted. Blood workup: WBC 20.9, hemoglobin 10.4, hematocrit 35.4, platelet count 226. Chemistry shows sodium 151, potassium 5.1, chloride 114, carbon dioxide 20, anion gap of 22, BUN 54, creatinine 1.8. Random sugar 335. Troponin 0.01. IMPRESSION: A 72-year-old female recently discharged to [facility], admitted after being found to be pulseless, unresponsive, status post intubated, status post cardiopulmonary resuscitation done at [facility] and then upon arrival to the [facility] ([facility]3], the patient was again pulseless, again another cardiopulmonary resuscitation was done, two rounds of epinephrine was given and now transferred to ICU. Currently, the patient is intubated, on IV Levophed, stable, hypothermic, but no significant reflex noted. Cannot rule out anoxic encephalopathy, not sure about the down time. On last admit, patient was, only thing is bradycardia secondary to Coreg withheld and the patient remained stable. Previously, the patient had echocardiography on 07/20/2017 that shows normal left ventricular function, no segmental wall motion, mild mitral regurgitation, mild tricuspid regurgitation, [id number] pulmonary hypertension. RECOMMENDATIONS: Continue Levophed. Continue broad-spectrum antibiotics. The patient has significantly elevated WBC 20,000, when the patient was discharged, it was 13.9. The actually is a double up the WBC, rule out underlying sepsis. Status post CPR, rule out anoxic encephalopathy. Repeat echo to assess LV function, to rule out any cardiac event. Further recommendations depending upon the hospital course. Continue broad-spectrum antibiotic. We will get echo. Continue Levophed. Overall, the patient's condition is critical, long-term prognosis extremely guarded. As mentioned, cannot rule out underlying anoxic encephalopathy as I was not sure what the down time. Monitor electrolytes closely. Depending upon hospital course, we will follow with you. Thank you, Dr. Gilman, for providing us the opportunity in taking care of the patient, Tamy Abbott. Alayna Trent MD
[2017-09-10] MEDS: Insulin Reg-MEDIUM-Coverage SC SCH ×4 (00:35→18:19)
[2017-09-10 06:10] LABS: ARTERIAL BLOOD GAS HCO3 21.1 mmol/L (21-28); ARTERIAL BLOOD GAS HEMOGLOBIN 10.3 g/dL (11.7-17.4); ARTERIAL BLOOD GAS O2 CAPACITY 14.2 mL/dl (16-24); ARTERIAL BLOOD GAS O2 CONTENT 13.8 ML/dl (15-23); ARTERIAL BLOOD GAS PCO2 47 mm/Hg (35-45); ARTERIAL BLOOD GAS PH 7.26 (7.35-7.45); ARTERIAL BLOOD GAS TCO2 22.5 mmol.L (22-28)
[2017-09-10 06:19] LABS: BASO # 0.01 K/mm3 (0.0-2.0); GRAN % 92.9 % (50.0-68.0); LYMPH % 3.9 % (22.0-35.0); MEAN CELL VOLUME 85.8 fl (80.0-105.0); MEAN CORPUSCULAR HEMOGLOBIN 26.2 pg (25.0-35.0); MEAN CORPUSCULAR HGB CONC 30.6 g/dl (31.0-37.0); MEAN PLATELET VOLUME 10.1 fl (7.0-11.0); MONO # 0.8 (0.1-0.6); MONO % 3.2 % (1.0-6.0); PLATELET COUNT 179 10^3/uL (120.0-450.0); RBC 3.81 10^6/uL (3.5-6.1); RED CELL DISTRIBUTION WIDTH 19.1 % (11.5-14.5)
--- NOTE | 2017-09-10 06:23 | CON ---
DATE: 09/09/2017 LOCATION: The patient is seen in the emergency room early this morning. CHIEF COMPLAINT: Cardiac arrest. HISTORY OF PRESENT ILLNESS: This is a 72-year-old female, care home patient with dementia, hypertension, diabetes, hypothyroidism, renal disease, recently hospitalized and discharged yesterday back to the care home, now is admitted in cardiac arrest and patient is intubated on a ventilator and Infectious Disease consultation requested. Review of systems reveals the patient has hypothermia. The patient is resuscitated and was found in cardiac arrest and was seen in the emergency room by Dr. Ibrahima Blanco and nursing staff walked in to the patient, found the patient unresponsive with a cardiac arrest as per PEMS. Nursing staff called EMS and CPR was commenced by care home staff and EMS was notified. On arrival to the emergency room, patient was pulseless and asystole intubated by the EMS. Four dose of epi, calcium was given. Patient was seen in the emergency room, intubated on a ventilator. REVIEW OF SYSTEMS: A 12-point review of systems is performed. PAST MEDICAL HISTORY: Significant for dementia, hypertension, diabetes, hypothyroidism, renal insufficiency. PAST SURGICAL HISTORY: Significant for toe amputation, hysterectomy. ALLERGIES: THE PATIENT IS ALLERGIC TO NIFEDIPINE. MEDICATIONS: Patient's medication at the care home is reviewed, include oxycodone, hydralazine, amlodipine, sucralfate, pantoprazole and insulin. PHYSICAL EXAMINATION: VITAL SIGNS: The patient is intubated on ventilator with a temperature of 91, blood pressure after the resuscitation is 78/39, respiratory rate on the vent, heart rate of 72. HEENT: Reveals ET tube in place. NECK: Supple. LUNGS: Have decreased breath sounds. HEART: Normal S1, S2. ABDOMEN: Soft, nontender. LABORATORY DATA: Reveals white count of 20,900; hemoglobin of 10; platelets of 226. Bun of 54, creatinine of 1.8. Random glucose is 335. AST is 120, ALT is 109, alk phos is 125. . Procalcitonin is 5.6. Serum bicarb is 22. Patient's anion gap is 22, bicarb is 20, sodium is 159. Cultures are pending. Chest x-ray, right lower lobe opacification. Patient had a CAT scan of chest and abdomen. Gall bladder is distended. Milk of calcium bile is in the gallbladder. X-ray of the chest, extensive bilateral airspace disease with air bronchogram. ASSESSMENT AND PLAN: This is a 72-year-old female, a care home patient with dementia, hypertension, diabetes, hypothyroidism, renal disease, recently discharged, admitted now with status post cardiac arrest with respiratory failure, intubated on ventilator, respiratory acidosis with metabolic acidosis, increased anion gap with bilateral healthcare-associated pneumonia, aspiration pneumonia, probably from the cardiac arrest. Currently, we will treat the patient with vancomycin and meropenem. Pending ruiz culture results. Blood, urine, sputum culture. Patient's procalcitonin is 0.10 which speaks against bacterial pneumonia. Followup . No cardiac event. Overall prognosis is quite poor. Asim George MD
[2017-09-10 06:26] LABS: WHITE BLOOD COUNT 25.9 10^3/ul (4.5-11.0)
[2017-09-10 06:32] LABS: INR 1.26 (0.93-1.08); PARTIAL THROMBOPLASTIN TIME 31.2 Seconds (25.1-36.5); PROTHROMBIN TIME 14.5 SECONDS (9.4-12.5)
[2017-09-10] MEDS: Sodium Chloride 0.9% 1,000 ML IV SCH ×2 (06:41→18:24)
[2017-09-10 06:54] LABS: ALBUMIN 2.8 g/dL (3.0-4.8); CALCIUM 8.3 mg/dL (8.4-10.5)
[2017-09-10 07:32] LABS: BAND 4 % (0-2); LYMPHOCYTE 3 % (22.0-35.0); METAMYELOCYTE 4 %; MONOCYTE 2 % (1.0-6.0); NEUTROPHIL 87 % (50.0-70.0); NUCLEATED RED BLOOD CELL 1 %; PLATELET ESTIMATE NORMAL (NORMAL)
[2017-09-10 07:33] LABS: ANISOCYTOSIS 1+
[2017-09-10] MEDS: Meropenem 500 MG in Sodium Chloride 0.9% 50 ML IVPB SCH ×2 (09:38→21:30)
[2017-09-10] MEDS: Vancomycin 500mg in NS 500 MG/100 ML BAG IVPB SCH ×2 (09:39→22:05)
[2017-09-10] MEDS: Nystatin 100,000 Units/gm Topical Pow(15 gm) TOP PRN (09:47)
[2017-09-10] MEDS: Propofol 10 mg/ml 1,000 MG/100 ML VIAL IV PRN (12:19)
--- NOTE | 2017-09-10 13:11 | PN ---
DATE: 09/10/2017 SUBJECTIVE: The patient is in bed, seen early this morning, intubated on a ventilator in poor condition. PHYSICAL EXAMINATION: VITAL SIGNS: Temperature is 93.8, blood pressure is 100/45, respiratory rate is on a vent, heart rate of 73. HEENT: Reveals ET tube in place. NECK: Supple. LUNGS: Decreased breath sounds. HEART: Normal S1 and S2. ABDOMEN: Soft. LABORATORY DATA: Laboratory examination reveals a white count of 25,000, hemoglobin of 10, platelets of 179. BUN of 62, creatinine of 2.2, procalcitonin is 0.1. Urinalysis is noted, cmc-supdbjlk-kz-count wbc's and rbc's, large leukocyte esterase. Influenza negative. Blood cultures, no growth. The sputum cultures are pending. Review of orders reveals the patient to be on meropenem and vancomycin. ASSESSMENT AND PLAN: A 72-year-old female seen early this morning, 129, bed 7 in CCU with retirement patient, dementia, hypertension, diabetes, hypothyroidism, renal disease, recently discharged, now admitted, status post cardiac arrest with respiratory failure, intubated on a ventilator with respiratory acidosis and metabolic acidosis and increased anion gap and bilateral healthcare-associated aspiration pneumonia with a procalcitonin is 0.10, which speaks against the bacterial pneumonia. Currently awaiting for pancultures with so far blood cultures are no growth. Sputum cultures are pending. On vancomycin and meropenem day #2 and we will order a vanco trough level tomorrow, at 9 o'clock, an hour before the 10:00 a.m. dose and we will follow closely with you. Asim George MD
--- NOTE | 2017-09-10 19:14 | CON ---
DATE: 09/10/2017 HISTORY OF PRESENT ILLNESS: A 72-year-old female, well known to the [facility] wound care team, seen at bedside in ICU for continued evaluation and management of a diabetic left foot ulceration as well as a deep tissue injury on her right heel. Patient is intubated at this time and cannot respond to any questioning. [facility] and went into cardiac arrest where she was resuscitated. EMS was called and she was brought to the emergency room pulseless and in asystole. PAST MEDICAL HISTORY: Significant for longstanding insulin-dependent diabetes with peripheral arterial disease and peripheral neuropathy, renal insufficiency, advanced dementia and hypothyroidism. MEDICATIONS: All medications are reviewed in MAR. ALLERGIES: THE PATIENT IS ALLERGIC TO NIFEDIPINE. PAST SURGICAL HISTORY: Significant for hysterectomy and left partial fifth ray resection done earlier in 2018. FAMILY HISTORY: Significant for diabetes. SOCIAL HISTORY: The patient is , was brought in from a penitentiary, was a former smoker. No history of illicit drug use or alcohol abuse. PHYSICAL EXAMINATION: VITAL SIGNS: Reveal a temperature of 93.6, pulse rate of 74, blood pressure of 100/45. EXTREMITIES: Nonpalpable pedal pulses noted bilaterally, +2 nonpitting edema noted bilaterally in lower extremities. Patient is unable to detect sharp-dull sensation bilaterally. Capillary filling time is delayed on all digits. There is noted to be a full-thickness ulceration on the lateral aspect of the left foot secondary to her partial fifth ray resection. Ulcer measures approximately 8 cm x 2.5 cm x 0.3 cm. The base of the ulcer remains relatively granular with minimal serous drainage. There is no malodor. There is no purulence. No signs of underlying abscess formation. The wound does not probe to tendon or bone. There is no cellulitic activity noted. The right heel presents with a deep tissue injury secondary to bed pressure. There is no signs of open lesions. There is no drainage, no acute bacterial infection noted. LABORATORY FINDINGS: Reveal white count of 25.9, hemoglobin of 10, hematocrit of 32.7, platelet count of 179. ASSESSMENT: Diabetic left foot ulceration, relatively granular tissue bed, deep tissue injuries to the right heel. PLAN: Patient was examined. Ulceration was cleansed with normal sterile saline and application of Xeroform, sterile 4x4 abdominal pad and a dry sterile dressing was applied. The right heel was cleansed with normal sterile saline and application of Optifoam was applied. We will order formal type Podus boots to offload both heels at all times. Overall prognosis for the patient is poor. Dressing will be changed daily while in-house. Harrison Trujillo DPM
[2017-09-11] MEDS: Insulin Reg-MEDIUM-Coverage SC SCH ×4 (02:30→17:25)
[2017-09-11] MEDS: Propofol 10 mg/ml 1,000 MG/100 ML VIAL IV PRN ×2 (02:40→12:35)
[2017-09-11] MEDS: Sodium Chloride 0.9% 1,000 ML IV SCH (05:45)
--- NOTE | 2017-09-11 06:00 | CP.PCM.PN ---
Subjective - Date & Time of Evaluation Date of Evaluation: 09/11/17 Time of Evaluation: 05:55 - Subjective Subjective: Ms. Abbott was seen and examined at the bedside in ICU. She remains on mechanical ventilator on PRVC mode. She does not breath over the vent settings, no corneal reflex, pupils are non-reactive with left eye 4 mm and right eye 3 mm , no gag reflex, and no response to pain stimuli, GCS 3T. She does have a scanty urine. She is currently on Nimbex, Propofol, and vasopressor. Patient is a DNR.There was no untoward events overnight. Objective - Vital Signs/Intake and Output Vital Signs (last 24 hours): Temp Pulse Resp BP Pulse Ox 97.3 F L 75 24 134/58 L 100 09/11/17 05:20 09/11/17 05:20 09/10/17 06:51 09/11/17 05:00 09/11/17 05:20 Intake and Output: 09/10/17 09/11/17 18:59 06:59 Intake Total 3375.44 15 Output Total 20 Balance 3355.44 15 - Medications Medications: Current Medications Heparin Sodium (Porcine) (Heparin) 5,000 units SC Q12 NIDHI PRN Reason: Protocol Last Admin: 09/10/17 22:06 Dose: 5,000 units Hydrocortisone Sodium Succinate (Solu-Cortef) 100 mg IVP Q8 NIDHI Last Admin: 09/11/17 05:45 Dose: 100 mg Norepinephrine Bitartrate 8 mg (/ Sodium Chloride) 508 mls @ 15.24 mls/hr IV .Q24H PRN; Protocol; 4 MCG/MIN PRN Reason: TITRATE PER MD ORDER Last Titration: 09/10/17 18:27 Dose: 0 mcg/min, 0 mls/hr Sodium Chloride (Sodium Chloride 0.9%) 1,000 mls @ 100 mls/hr IV .Q10H NIDHI Last Admin: 09/11/17 05:45 Dose: 100 mls/hr Propofol (Diprivan) 1,000 mg in 100 mls @ 2.693 mls/hr IV .Q24H PRN; Protocol; 5 MCG/KG/MIN PRN Reason: TITRATE PER MD ORDER Last Admin: 09/11/17 02:40 Dose: 15 mcg/kg/min, 8.079 mls/hr Cisatracurium Besylate 200 mg/ (Sodium Chloride) 270 mls @ 7.27 mls/hr IV .Q24H PRN; Protocol; 1 MCG/KG/MIN PRN Reason: TITRATE PER MD ORDER Last Titration: 09/09/17 18:41 Dose: 0.25 mcg/kg/min, 1.81 mls/hr Meropenem 500 mg/ Sodium (Chloride) 50 mls @ 100 mls/hr IVPB Q12 NIDHI PRN Reason: Protocol Stop: 09/18/17 22:01 Last Admin: 09/10/17 21:30 Dose: 100 mls/hr Vancomycin HCl (Vancomycin 500mg In Ns) 500 mg in 100 mls @ 200 mls/hr IVPB Q12 NIDHI PRN Reason: Protocol Stop: 09/18/17 22:01 Last Admin: 09/10/17 22:05 Dose: 200 mls/hr Insulin Human Regular (Humulin R Med) 0 units SC Q6 NIDHI PRN Reason: Protocol Last Admin: 09/11/17 02:30 Dose: Not Given Nystatin (Nystop Topical Powder) 0 gm TOP Q8 PRN PRN Reason: Itching / Pruritus Last Admin: 09/10/17 09:47 Dose: 1 applic Pantoprazole Sodium (Protonix Inj) 40 mg IVP DAILY [facility] Last Admin: 09/10/17 09:35 Dose: 40 mg - Labs Labs: 09/10/17 06:00 09/10/17 06:00 PT 14.5 SECONDS (9.4-12.5) H 09/10/17 06:00 INR 1.26 (0.93-1.08) H 09/10/17 06:00 APTT 31.2 Seconds (25.1-36.5) 09/10/17 06:00 - Constitutional Appears: No Acute Distress - Head Exam Head Exam: NORMAL INSPECTION - Eye Exam Pupil Exam: Irregular Additional comments: left 4 mm and right eye 3 mm non-reactive. - Neurological Exam Neuro motor strength exam: Left Upper Extremity: 0, Right Upper Extremity: 0, Left Lower Extremity: 0, Right Lower Extremity: 0 Additional comments: GCS-3T Assessment and Plan (1) Anoxic brain injury Assessment & Plan: Case discussed with Dr. Maravilla, continue all current medical regimen including ICU team for vent, sedation, and blood pressure management. Pending CT scan of the head without contrast . Recommend palliative care, blood pressure control, normothermic, and glycemic control. Status: Acute
[2017-09-11 06:27] LABS: GRAN # 23.14 (1.4-6.5); GRAN % 91.6 % (50.0-68.0); HEMOGLOBIN 8.8 g/dL (12.0-16.0); LYMPH # 1.2 (1.2-3.4); LYMPH % 4.6 % (22.0-35.0); MEAN CELL VOLUME 82.7 fl (80.0-105.0); MEAN CORPUSCULAR HEMOGLOBIN 27.2 pg (25.0-35.0); MEAN CORPUSCULAR HGB CONC 32.8 g/dl (31.0-37.0); MEAN PLATELET VOLUME 10.5 fl (7.0-11.0); MONO % 3.8 % (1.0-6.0); RBC 3.24 10^6/uL (3.5-6.1); RED CELL DISTRIBUTION WIDTH 18.9 % (11.5-14.5)
[2017-09-11 06:32] LABS: WHITE BLOOD COUNT 25.3 10^3/ul (4.5-11.0)
[2017-09-11 07:15] LABS: ALBUMIN 2.6 g/dL (3.0-4.8)
[2017-09-11] MEDS: Meropenem 500 MG in Sodium Chloride 0.9% 50 ML IVPB SCH ×2 (10:00→21:43)
--- NOTE | 2017-09-11 10:45 | CP.PCM.PN ---
<El Graf - Last Filed: 09/11/17 10:41> Subjective - Date & Time of Evaluation Date of Evaluation: 09/11/17 Time of Evaluation: 10:41 - Subjective Subjective: Podiatry progress note for Dr. Trujillo 72 yo female seen and examined at bedside for left foot lateral post surgical ulceration site. Pts daughter accompanies her today. Pt is unable to respond to questioning due to altered mental status. Pts dressing are C/D/I and multipodus boots are in place. Nursing reports no acute changes overnight. Objective - Vital Signs/Intake and Output Vital Signs (last 24 hours): Temp Pulse Resp BP Pulse Ox 96.3 F L 72 24 132/57 L 100 09/11/17 10:00 09/11/17 10:20 09/11/17 10:00 09/11/17 10:00 09/11/17 10:20 Intake and Output: 09/11/17 09/11/17 06:59 18:59 Intake Total 1524 15 Output Total 3 Balance 1521 15 - Medications Medications: Current Medications Heparin Sodium (Porcine) (Heparin) 5,000 units SC Q12 NIDHI PRN Reason: Protocol Last Admin: 09/11/17 10:00 Dose: 5,000 units Hydrocortisone Sodium Succinate (Solu-Cortef) 100 mg IVP Q8 [facility] Last Admin: 09/11/17 05:45 Dose: 100 mg Norepinephrine Bitartrate 8 mg (/ Sodium Chloride) 508 mls @ 15.24 mls/hr IV .Q24H PRN; Protocol; 4 MCG/MIN PRN Reason: TITRATE PER MD ORDER Last Titration: 09/10/17 18:27 Dose: 0 mcg/min, 0 mls/hr Sodium Chloride (Sodium Chloride 0.9%) 1,000 mls @ 100 mls/hr IV .Q10H [facility] Last Admin: 09/11/17 05:45 Dose: 100 mls/hr Propofol (Diprivan) 1,000 mg in 100 mls @ 2.693 mls/hr IV .Q24H PRN; Protocol; 5 MCG/KG/MIN PRN Reason: TITRATE PER MD ORDER Last Admin: 09/11/17 02:40 Dose: 15 mcg/kg/min, 8.079 mls/hr Cisatracurium Besylate 200 mg/ (Sodium Chloride) 270 mls @ 7.27 mls/hr IV .Q24H PRN; Protocol; 1 MCG/KG/MIN PRN Reason: TITRATE PER MD ORDER Last Titration: 09/11/17 07:05 Dose: 0 mcg/kg/min, 0 mls/hr Meropenem 500 mg/ Sodium (Chloride) 50 mls @ 100 mls/hr IVPB Q12 NIDHI PRN Reason: Protocol Stop: 09/18/17 22:01 Last Admin: 09/11/17 10:00 Dose: 100 mls/hr Insulin Human Regular (Humulin R Med) 0 units SC Q6 NIDHI PRN Reason: Protocol Last Admin: 09/11/17 06:13 Dose: Not Given Nystatin (Nystop Topical Powder) 0 gm TOP Q8 PRN PRN Reason: Itching / Pruritus Last Admin: 09/10/17 09:47 Dose: 1 applic Pantoprazole Sodium (Protonix Inj) 40 mg IVP DAILY [facility] Last Admin: 09/11/17 10:00 Dose: 40 mg - Labs Labs: 09/11/17 06:00 09/11/17 06:00 PT 14.5 SECONDS (9.4-12.5) H 09/10/17 06:00 INR 1.26 (0.93-1.08) H 09/10/17 06:00 APTT 31.2 Seconds (25.1-36.5) 09/10/17 06:00 - Constitutional Appears: Well, Non-toxic, No Acute Distress - Extremities Exam Additional comments: Left lower extremity focused exam: Vasc: DP and PT pulses palpable 1/4. Temperature gradient warm to cool. CFT < 3 sec x 3 digits. No pedal edema is noted Derm: Clean open ulceration measuring approximately 6 cm x 3 cm x 0.2 cm to lateral forefoot with 80% granular and 20% fibrotic wound base. No lukas wound erythema, no tunneling or undermining present, no malodor, no streaking, no purulence, No other clinical signs of infection. Wound appears stable at this time. Stage 1 pressure ulceration noted to plantar medial heel with no breaks in skin or soft tissue Neuro: Unable to assess due to altered mental status Ortho: Unable to assess pain and discomfort due to mental status. No other gross deformities noted Assessment and Plan - Assessment and Plan (Free Text) Assessment: 72 y/o female with left lateral foot diabetic ulceration Plan: Pt seen and evaluated Discussed in detail with Dr. Trujillo Chart, labs and vitals reviewed; Afebrile, WBC 25.3 Wound cleaned with saline dressed with xeroform, ABD, DSD Multipodus boots reapplied, to be worn all times in bed Continue abx - meropenem Will continue to follow pt and perform daily local wound care <Harrison Trujillo - Last Filed: 09/13/17 11:33> Objective - Vital Signs/Intake and Output Vital Signs (last 24 hours): Temp Pulse Resp BP Pulse Ox 95.7 F L 73 10 L 143/71 91 L 09/13/17 08:00 09/13/17 08:00 09/12/17 07:38 09/13/17 08:00 09/13/17 08:00 Intake and Output: 09/13/17 09/13/17 06:59 18:59 Intake Total 380 Output Total 3 Balance 377 - Medications Medications: Current Medications Aspirin (Aspirin Chewable) 81 mg PO DAILY [facility] Last Admin: 09/13/17 09:48 Dose: 81 mg Heparin Sodium (Porcine) (Heparin) 5,000 units SC Q12 NIDHI PRN Reason: Protocol Last Admin: 09/13/17 09:47 Dose: 5,000 units Hydrocortisone Sodium Succinate (Solu-Cortef) 50 mg IVP DAILY [facility] Last Admin: 09/13/17 09:48 Dose: 50 mg Meropenem 500 mg/ Sodium (Chloride) 50 mls @ 100 mls/hr IVPB Q12 NIDHI PRN Reason: Protocol Stop: 09/18/17 22:01 Last Admin: 09/13/17 09:52 Dose: 100 mls/hr Insulin Detemir (Levemir) 15 unit SC HS NIDHI Insulin Human Regular (Humulin R Med) 0 units SC Q6 NIDHI PRN Reason: Protocol Last Admin: 09/13/17 06:00 Dose: 388 units Nystatin (Nystop Topical Powder) 0 gm TOP Q8 PRN PRN Reason: Itching / Pruritus Last Admin: 09/11/17 12:37 Dose: 1 applic Pantoprazole Sodium (Protonix Inj) 40 mg IVP DAILY [facility] Last Admin: 09/13/17 09:48 Dose: 40 mg - Labs Labs: 09/13/17 05:45 09/13/17 05:45 PT 14.5 SECONDS (9.4-12.5) H 09/10/17 06:00 INR 1.26 (0.93-1.08) H 09/10/17 06:00 APTT 31.2 Seconds (25.1-36.5) 09/10/17 06:00 Attending/Attestation - Attestation I have personally seen and examined this patient.: Yes I have fully participated in the care of the patient.: Yes I have reviewed all pertinent clinical information, including history, physical exam and plan: Yes
--- NOTE | 2017-09-11 11:28 | PN ---
DATE: 09/11/2017 SAFETY ADMINISTRATOR NOTE SUBJECTIVE: The patient is unresponsive on the ventilator, sedated with Diprivan, but continues to be on Nimbex. Nimbex will be discontinued today. The patient is on a ventilator with FIO2 of 100%. Continues to require Levophed for blood pressure support. She is in isolation for ESBL in the urine. PHYSICAL EXAMINATION: VITAL SIGNS: Physical exam note that she has temperature is 96.3, her pulse is 72, respirations are 26 with O2 saturation of 100%, blood pressure is 134/54. SKIN: Warm and dry. HEENT: Head atraumatic, normocephalic. Eyes: No change. Ear, nose and throat seemed to be within normal limits. NECK: Supple. No JVD. No thyroid enlargement. No lymph nodes. HEART: Regular rate and rhythm. Normal S1, S2. LUNGS: Reveal mild rhonchi bilaterally. ABDOMEN: Soft. Decreased bowel sounds. GENITALIA AND RECTAL: Deferred. MUSCULOSKELETAL: No joint deformities. EXTREMITIES: Reveal positive lower extremity edema. NEUROLOGICAL: The patient is unresponsive on the ventilator. LABORATORY DATA: As far as her laboratories, her white count is 25.3, hemoglobin is 8.8, hematocrit 26.8 with platelets of 128,000. The patient's sodium is 154, potassium 4.1, chloride 122, CO2 of 19 with a BUN of 66, creatinine of 2.7 and a glucose of 197. As far as chest x-ray, it continues to reveal bilateral infiltrates, ARDS. IMPRESSION: This patient has bilateral pneumonia/adult respiratory distress syndrome with respiratory failure requiring ventilator support. She is status post cardiac arrest x2 and has hypotension, possible septic shock. The patient has extended-spectrum beta-lactamase in the urine as well as noted to have anemia, metabolic acidosis and carries a diagnosis of dementia, hypertension, diabetes, hypothyroidism and renal insufficiency. PLAN: As far as our plan, we will continue ventilator support and decrease FiO2 as tolerated. Note, the family made the patient DNR yesterday. She will continue with the Levophed and the Diprivan and we will discontinue the paralyzing agent, Nimbex today. The patient will continue with heparin subcu. She is on meropenem as well as Levophed and propofol. The patient will continue with the Protonix, Solu-Cortef and vancomycin. We will continue to treat aggressively along with the other consultants and the primary care doctor. Edward Gómez MD
--- NOTE | 2017-09-11 11:50 | CT ---
PROCEDURE: CT HEAD WITHOUT CONTRAST. HISTORY: Cardiac arrest COMPARISON: 09/09/2017 CT head TECHNIQUE: Axial computed tomography images were obtained through the head/brain without intravenous contrast. Radiation dose: Total exam DLP = 898.78 mGy-cm. This CT exam was performed using one or more of the following dose reduction techniques: Automated exposure control, adjustment of the mA and/or kV according to patient size, and/or use of iterative reconstruction technique. FINDINGS: HEMORRHAGE: No intracranial hemorrhage. BRAIN: Extensive edema involving both hemispheres, brainstem and cerebellum. In addition there are areas of infarction and basal ganglia, thalamus. Additional areas of cortical infarction identified the distribution of the anterior cerebral arteries. VENTRICLES: Unremarkable. No hydrocephalus. CALVARIUM: Unremarkable. PARANASAL SINUSES: Unremarkable as visualized. No significant inflammatory changes. MASTOID AIR CELLS: Unremarkable as visualized. No inflammatory changes. OTHER FINDINGS: None. IMPRESSION: CT manifestations anoxic encephalopathy. These are new findings compared to the prior CT scan.
[2017-09-11] MEDS: Nystatin 100,000 Units/gm Topical Pow(15 gm) TOP PRN (12:37)
[2017-09-11 17:09] LABS: CREATININE,RANDOM URINE 10 mg/dL
--- NOTE | 2017-09-11 18:28 | PN ---
DATE: 09/10/2017 FOLLOWUP NOTE SUBJECTIVE: Patient is intubated, sedated. No events overnight. She is not responsive to painful stimuli. Urine output is scant. Continue to be on pressor support and propofol. PHYSICAL EXAMINATION GENERAL: Intubated and sedated. VITAL SIGNS: As above. Heart rate is 75 per minute, respiratory rate is 24 per minute, blood pressure 134/58, pulse ox 100% on ventilation. HEENT: Normal. CHEST: Air entry present. Bilateral conducted sound present. CARDIOVASCULAR: Tachycardia present. ABDOMEN: Soft, nontender. No hepatosplenomegaly. EXTREMITIES: 1+ edema. LABORATORY DATA: White count 25.9, hemoglobin 10 and hematocrit 32.7. platelets 179. Sodium 154, potassium 4.3, BUN 62, creatinine 2.2, glucose 226. INR 1.2. MEDICATIONS: Heparin 5000 every 12, norepinephrine drip, propofol drip, meropenem, vancomycin, nystatin, Protonix IV. ASSESSMENT: Acute respiratory distress syndrome; respiratory failure, on vent support; cardiac arrest x2; , on pressor support; sepsis; anemia; leukocytosis; metabolic acidosis; hypertension; hypothyroidism; renal insufficiency. PLAN: To continue vent support, continue pressor support, on Levophed and propofol. She is on IV steroid. IV antibiotic, meropenem and vancomycin as per Dr. George note reviewed. She has leukocytosis and anemia, acute renal failure. Urine output is scant. Creatinine of 2.2. Prognosis is poor. Venus Jimenez MD
--- NOTE | 2017-09-11 18:53 | PN ---
DATE: 09/11/2017 FOLLOWUP NOTE SUBJECTIVE: She is unresponsive on ventilator, sedated, intubated. Currently on FiO2 100%. Continued to be on pressor support, Levophed. She has ESBL in the urine, leukocytosis, anemia, scant urine output. PHYSICAL EXAMINATION: GENERAL: Sedated, intubated. SKIN: Warm, dry. HEAD: Atraumatic, normocephalic. NECK: No lymphadenopathy. CHEST: Bilateral conducted breath sounds present. CARDIOVASCULAR: Tachycardia plus EXTREMITIES: Positive for edema, bilateral. NEUROLOGIC: Sedated, intubated. LABORATORY DATA: White count 25.3, hemoglobin is 8.8, hematocrit 26.8, platelet 128. Sodium 154, potassium 4.4, creatinine 2.7. Glucose 197. IMAGING DATA: Chest x-ray, bilateral infiltrates, ARDS. Meds : reviewed. ASSESSMENT: Sedated, intubated, on pressor support, multiorgan failure, respiratory failure, cardiac failure, leukocytosis, anemia, anuric. PLAN: Nephrology consult, Dr. Cosby, requested. She is DNR as of yesterday. Continue pressor support. Continue IV antibiotics as per Dr. George, meropenem and vancomycin and Solu-Cortef too. Family is at bedside. Poor prognosis. Venus Jimenez MD MTDD
--- NOTE | 2017-09-11 23:24 | CON ---
DATE: 09/11/2017 PULMONARY CONSULTATION REFERRING PHYSICIAN: Venus Jimenez MD. REASON FOR CONSULTATION: Status post cardiopulmonary arrest, on ventilator. HISTORY OF PRESENT ILLNESS: This is a 72-year-old female who was recently discharged to [facility]. While at [facility], was found unresponsive. She had a cardiopulmonary arrest. She was resuscitated and brought into ER; placed on ventilator; requiring pressors, sedatives, and paralytic agent. Seen by [employer] chief, also seen by Infectious Diseases; started on broad-spectrum antibiotics. Patient is made DNR. Daughter is at bedside. Nursing staff is at bedside. She is sedated and intubated. Not much ET tube secretion. No hemoptysis or hematemesis. No hematuria, no diarrhea reported. PAST MEDICAL HISTORY: Hypertension, hyperlipidemia, diabetes, hypothyroid, dementia. There may be a component of sleep apnea syndrome. Osteoarthritis, anxiety disorder. FAMILY HISTORY: Significant cardiopulmonary disease reported. SOCIAL HISTORY: Former smoker. Denies any alcohol use. ALLERGIES: TO NIFEDIPINE. MEDICATIONS: She is on Diprivan IV, heparin 5000 units subcu every 12 hour, insulin coverage, meropenem 500 mg every 12 hour, Levophed is on board, Protonix 40 mg daily, Solu-Cortef 100 mg every eight hour. REVIEW OF SYSTEMS: She is unresponsive on sedatives. Not much ET tube secretion. No vomiting, no hematuria, no diarrhea. No leg swelling reported. PHYSICAL EXAMINATION: VITAL SIGNS: Temperature is 98, heart rate 84, respiratory rate is 12, blood pressure 143/66, pulse ox 100% on ventilator. HEENT: Moist mucous membrane. Crowded airway. NECK: Supple. No JVD. ET tube, no secretion. LUNGS: Have scattered rhonchi and crackles. HEART: S1 and S2. ABDOMEN: Soft, nontender, nondistended. EXTREMITIES: No edema. NEUROLOGIC: Sedated and intubated. LABORATORY DATA: Shows hemoglobin 8.8, hematocrit 26.8, WBC 25,000, platelet is 128. INR 1.26, PTT 31. ABG done yesterday shows pH 7.26, pCO2 of 47, O2 of 75 that was on 100% oxygen on ventilator. Sodium 154, potassium 4.1, chloride 122, bicarbonate 19, BUN 66, creatinine 2.7, glucose 174, calcium 8, phosphorus 4.1, magnesium 1.9. AST 152, ALT 47, alk phos is 99. Albumin is 2.6. Urinalysis shows WBC too numerous to count, RBC too numerous to count. Vanco trough level is 20. Legionella antigen negative. Influenza A and B is negative. Microbiology: Sputum culture is unremarkable. Blood culture, there is no growth. Urine has some yeast. Echocardiogram done, report is pending. Has a CT of the head done which is consistent with manifestation of anoxic encephalopathy. Chest x-ray done 2 days ago, which is consistent with pulmonary edema and ARDS. IMPRESSION AND PLAN: Status post cardiopulmonary arrest, probably hypoxic encephalopathy, history of dementia, hypertension, diabetes, peripheral vascular disease, history of heel ulcers, recently had extended spectrum beta-lactamase urinary tract infections, renal failure. Case discussed with the patient's daughter at bedside. All the questions answered. Also spoke to nursing staff. Requested to use minimum sedatives to make patient comfortable. Discontinue paralytic. Keep head at 45 degrees. Follow up arterial blood gas, chest x-ray, CBC, CMP in the morning. Chest x-ray in the morning. Thank you and we will follow up with you. Alayna Terry MD
[2017-09-12] MEDS: Insulin Reg-MEDIUM-Coverage SC SCH ×4 (00:15→18:36)
[2017-09-12 05:59] LABS: BASO # 0.01 K/mm3 (0.0-2.0); GRAN # 22.31 (1.4-6.5); GRAN % 91.5 % (50.0-68.0); HEMOGLOBIN 8.7 g/dL (12.0-16.0); LYMPH # 0.9 (1.2-3.4); LYMPH % 3.7 % (22.0-35.0); MEAN CELL VOLUME 82.9 fl (80.0-105.0); MEAN CORPUSCULAR HEMOGLOBIN 27.1 pg (25.0-35.0); MEAN CORPUSCULAR HGB CONC 32.7 g/dl (31.0-37.0); MEAN PLATELET VOLUME 10.8 fl (7.0-11.0); MONO # 1.2 (0.1-0.6); MONO % 4.8 % (1.0-6.0); RBC 3.21 10^6/uL (3.5-6.1); RED CELL DISTRIBUTION WIDTH 18.3 % (11.5-14.5); WHITE BLOOD COUNT 24.4 10^3/ul (4.5-11.0)
[2017-09-12 06:03] LABS: ALB/GLOB RATIO 0.9 (1.1-1.8); ALBUMIN 2.6 g/dL (3.0-4.8); CALCIUM 7.8 mg/dL (8.4-10.5)
[2017-09-12 06:25] LABS: ARTERIAL BLOOD GAS HCO3 16.1 mmol/L (21-28); ARTERIAL BLOOD GAS HEMOGLOBIN 7.9 g/dL (11.7-17.4); ARTERIAL BLOOD GAS O2 CAPACITY 11.8 mL/dl (16-24); ARTERIAL BLOOD GAS O2 CONTENT 11.8 ML/dl (15-23); ARTERIAL BLOOD GAS PCO2 32 mm/Hg (35-45); ARTERIAL BLOOD GAS PH 7.31 (7.35-7.45); ARTERIAL BLOOD GAS TCO2 17.1 mmol.L (22-28)
--- NOTE | 2017-09-12 08:42 | PN ---
DATE: 09/11/2017 SUBJECTIVE: The patient is in bed, in no acute distress, nontoxic. PHYSICAL EXAMINATION: VITAL SIGNS: On exam, temperature is 96, blood pressure is 135/50, respiratory rate of 18. HEENT: Examination of HEENT is unremarkable. NECK: Supple. LUNGS: Have decreased breath sounds. HEART: Normal S1, S2. Abdomen: Soft, nontender. LABORATORY DATA: Laboratory examination reveals a white count of 25,000, hemoglobin of 8 and BUN of 66, creatinine of 2.7. Urinalysis is noted and patient's procalcitonin is and vanco trough this morning is 20. Serology for Legionella is negative. Microbiology reveals yeast in the urine. Blood cultures are negative. Review of orders reveals the patient to be on meropenem and Solu-Cortef, vancomycin. Sputum cultures are pending. The patient had a chest x-ray on 09/09/2017 which is reviewed. Systemic pulmonary edema, ARDS. ASSESSMENT AND PLAN: A 72-year-old who was seen this morning in CCU, bed #7, intubated on a ventilator, respiratory failure; correction patient with dementia, hypertension, diabetes, hypothyroidism, renal disease, admitted with status post cardiac arrest with respiratory failure and intubated on a ventilator and the patient was recently discharged from the hospital, with cardiac arrest with respiratory failure, intubated on a ventilator, respiratory acidosis with metabolic acidosis and increased anion gap and bilateral healthcare-associated pneumonia with a normal procalcitonin. Thus far, cultures are negative, on vanco and meropenem, day #3 and renal disease with vanco trough of 20.3 this morning and the patient in the past has had negative Methicillin-resistant Staphylococcus aureus screening and nasal Methicillin-resistant Staphylococcus aureus screening. We will discontinue the vancomycin. Complete with a short course of meropenem. Today is day #3. The patient now is a DNR and consider supportive care and conservative management for this patient, . Pending final culture results. Overall prognosis is quite poor. Asim George MD
--- NOTE | 2017-09-12 08:50 | CON ---
DATE: 09/11/2017 NEPHROLOGY CONSULTATION HISTORY OF PRESENT ILLNESS: The patient is a 72-year-old female with past medical history of hypertension, hypothyroidism, status post recent E-coli UTI and left foot infection, presented to ED status post cardiac arrest from [facility]. Nephrology now being consulted for acute renal failure. The patient according to record was found unresponsive at skilled nursing, ACLS protocol was initiated and return of spontaneous circulation was achieved after the patient had received 4 ounces epi and 1 ampule of bicarb. In ED, the patient again went into cardiac arrest, pulseless given two more rounds of epi and one more amp of bicarb for internal spontaneous circulation achieved. The patient had been hypotensive requiring Levophed drip which was discontinued today. The patient was also sedated and placed on paralytic both of which were withdrawn today. The patient was found to have marked leukocytosis and placed on broad-spectrum antibiotics with meropenem and vancomycin. Urine output noted to be minimal over past 2 days. Patient also on 100% FiO2 via mechanical ventilation. PAST MEDICAL HISTORY: As above. SOCIAL HISTORY: No history of tobacco or drug use. FAMILY HISTORY: Unable to obtain. REVIEW OF SYSTEMS: Unable to obtain as the patient is unresponsive, intubated. PHYSICAL EXAMINATION: VITAL SIGNS: Most recently blood pressure 141/62, heart rate 75, respirations 24, temperature 97.0, O2 sat 100% on 100% FiO2 via mechanical ventilation. GENERAL: Not responding to noxious stimuli. HEENT: Moist mucous membranes. Nonicteric. No cervical lymphadenopathy. RESPIRATORY: Lungs clear to auscultation bilaterally. No respiratory distress. CARDIOVASCULAR: Heart sounds S1 and S2 normal. No murmurs. No gallops. No rubs. GI: Abdomen soft, nondistended. : No bladder distention, Padilla in place with scant amount of purulent drainage. EXTREMITIES: Moderately edematous upper extremities and bilateral thighs dependent areas. SKIN: Warm. No cyanosis. NEURO: Left eye pupil dilated, no corneal reflex present. LABORATORY DATA: This morning CBC; WBC 25.3, hemoglobin 8.8, hematocrit 26.8, platelets 128, decreased from 226 on presentation. Chemistry panel, sodium 154, potassium 4.1, chloride 122, bicarb 19, BUN 66, creatinine 2.7, increased from 1.8 on presentation, glucose 174, calcium 8.0, phosphorus 4.1, magnesium 1.9, AST 152, ALT 47, albumin 2.6. Urine studies; moderate blood 100 mg/dL protein, large leukocyte esterase, numerous rbcs, numerous wbcs, large bacteria and yeast, vancomycin trough this morning 20.3. ABG from yesterday, pH 7.26, pCO2 47, pO2 75 on 100% FiO2. Chest x-ray from 2 days ago showing bilateral fluffy infiltrates/pulmonary edema. ASSESSMENT/PLAN: 1. Acute renal failure - Anuric renal failure, clinically consistent with acute tubular necrosis in the setting of cardiac arrest and sepsis; relatively stable electrolyte status with only mild metabolic acidosis; however, with signs of volume overload, with the patient requiring 100% FiO2 to maintain adequate oxygen saturation. The patient clinically has no neurologic response and with overall poor prognosis. Initiation of dialysis in this setting is likely futile although we will await official Neurology recommendations in this regard as sedation was just removed today; however, if the patient is being considered for potential organ donor candidate, then if family is agreeable then dialysis may be needed as a bridge to organ procurement. Currently, no absolute urgency to initiate hemodialysis. We will discuss with Critical Care Team in the morning. -Recommend to avoid giving more volume. Should dose medications in D5W to avoid further volume overload. 2. Hypernatremia, the patient with almost 5 liters free water deficit this morning, started on D5W at 100 mL/hour. Can continue the same for now; as this patient has no significant urine output and not much insensible free water losses, we can likely stop or decrease the rate of D5W by tomorrow morning. 3. Metabolic acidosis, relatively mild. Per ABG yesterday, pH is being maintained above 7.0. -Should avoid giving sodium bicarb as this will be an extra volume load. 4. Sepsis. The patient currently on meropenem dosed for creatinine clearance less than 10, status post vancomycin, currently discontinued after trough level elevated; -should repeat random vanco level before re-dosing. Thank you for this referral. We will be following up closely. Critical care time spent > 35 minutes. Reza Cosby MD [facility] # [id number] MTDD
--- NOTE | 2017-09-12 08:53 | PN ---
DATE: 09/10/2017 PUBLICITY EXPERT NOTE SUBJECTIVE: The patient is sedated, on the ventilator, FiO2 of 100%. She continues to require Levophed to support her blood pressure. The patient is in isolation for ESBL in the urine. She continues to be sedated as well as has a paralyzing agent as well. PHYSICAL EXAMINATION: VITAL SIGNS: Note that her temperature is 93.6, pulse is 75, respirations are 20 and her BP is 100/45, O2 saturation is 100%. HEENT: Head is atraumatic, normocephalic. Eyes, no change. Ears, nose and throat seemed to be within normal limits. NECK: Supple. No JVD. No thyroid enlargement or lymph nodes. HEART: Has regular rate and rhythm. Normal S1, S2. LUNGS: Reveal mild rhonchi bilaterally. ABDOMEN: Soft. Decreased bowel sounds. GENITALIA: Deferred. RECTAL: Deferred. MUSCULOSKELETAL: No joint deformities. EXTREMITIES: Reveal positive lower extremity edema. NEUROLOGIC: The patient is sedated on the ventilator. DATA: As far as her laboratories are concerned, her white count is 25.9, hemoglobin is 10, hematocrit is 32.7 with platelets of 179,000. Arterial blood gas reveals a pH of 7.26, pCO2 of 47, pO2 of 75. Her sodium is 154, potassium 4.3, chloride 119, CO2 of 22 with a BUN 62, creatinine of 2.2. Glucose is 226. Chest x-ray reveals bilateral infiltrates, ARDS. IMPRESSION: As far as my impression, this patient has respiratory failure with acute respiratory distress syndrome, requiring ventilator of 100% FiO2. The patient is status post cardiac arrest x2 and has hypotension with possible sepsis. The patient has extended spectrum beta-lactamases infection of the urine and has renal insufficiency as well as anemia and metabolic acidosis. She has a history of hypothyroidism as well as hypertension and diabetes. PLAN: As far as our plan, we will continue with ventilator support and decrease the FIO2 as tolerated. The patient is scheduled for CT scan of the head. We will continue with Levophed as well as her Diprivan and at this time, she is in isolation for the ESBL. The patient is getting meropenem IV as well as IV fluids of normal saline. She is getting Protonix as well as of Solu-Cortef. The patient is also on vancomycin. We will follow the chest x-ray and arterial blood gas closely. We will continue to treat aggressively along with the other consultants and the primary care doctor. Edward Gómez MD
[2017-09-12] MEDS: Meropenem 500 MG in Sodium Chloride 0.9% 50 ML IVPB SCH ×2 (09:14→21:27)
--- NOTE | 2017-09-12 09:43 | RAD ---
HISTORY: Respiratory failure COMPARISON: Comparison chest 09/09/2017 FINDINGS: In situ ETT, tip of which lies approximately 4 cm above luis. NGT is present, tip of which has not been included on this film though distal aspect does lie well below EG junction. LUNGS: Persistent but improved pulmonary venous congestion persistent mild bilateral lower lobe alveolar-type infiltrates and bilateral effusions. . . PLEURA: As above. No pneumothorax apparent. CARDIOVASCULAR: Cardiomegaly OSSEOUS STRUCTURES: No significant abnormalities. VISUALIZED UPPER ABDOMEN: Normal. OTHER FINDINGS: None. IMPRESSION: Persistent but improved pulmonary venous congestion persistent mild bilateral lower lobe alveolar-type infiltrates and bilateral effusions. . .
--- NOTE | 2017-09-12 10:27 | CP.CCUPN ---
<Donn Rocha - Last Filed: 09/12/17 11:14> CCU Subjective - Physician Review Subjective (Free Text): Donn Rocha, PGY1 ICU Critical Care Progress Note for Dr. Galdamez Patient was seen and examined at bedside this morning. Patient is intubated and currently on Low Tidal Volume Ventilation. Patient is off paralytic agent. ROS not obtained due to intubation. CCU Objective - Vital Signs / Intake & Output Vital Signs (Last 4 hours): Vital Signs Temp Pulse Resp BP Pulse Ox 09/12/17 09:30 98.1 F 79 100 09/12/17 09:20 98.1 F 79 100 09/12/17 09:10 98.1 F 81 100 09/12/17 09:00 98.1 F 79 140/57 L 100 09/12/17 08:58 98.1 F 81 100 09/12/17 08:50 98.1 F 80 100 09/12/17 08:40 98.1 F 79 100 09/12/17 08:30 98.1 F 80 100 09/12/17 08:20 98.1 F 79 100 09/12/17 08:10 98.1 F 80 100 09/12/17 08:00 98.1 F 80 140/52 L 100 09/12/17 07:50 97.9 F 81 100 09/12/17 07:41 97.9 F 80 99 09/12/17 07:40 97.9 F 82 100 09/12/17 07:39 97.9 F 79 100 09/12/17 07:38 97.9 F 80 10 L 100 09/12/17 07:37 97.9 F 80 4 L 100 09/12/17 07:36 97.9 F 80 11 L 100 09/12/17 07:35 97.9 F 82 14 100 09/12/17 07:34 97.9 F 81 100 09/12/17 07:33 97.9 F 83 17 100 09/12/17 07:32 97.9 F 83 24 100 09/12/17 07:31 97.9 F 81 11 L 100 09/12/17 07:30 97.9 F 83 14 100 09/12/17 07:29 97.9 F 83 19 100 09/12/17 07:28 97.9 F 82 16 100 09/12/17 07:27 97.9 F 79 14 100 09/12/17 07:26 97.9 F 83 100 09/12/17 07:25 97.9 F 82 12 100 09/12/17 07:24 97.9 F 83 7 L 100 09/12/17 07:23 97.9 F 84 14 100 09/12/17 07:22 97.9 F 83 19 100 09/12/17 07:21 97.9 F 82 16 100 09/12/17 07:20 97.9 F 82 24 100 09/12/17 07:19 97.9 F 83 19 100 09/12/17 07:18 97.9 F 83 16 100 09/12/17 07:17 97.9 F 83 19 100 09/12/17 07:16 97.9 F 85 16 100 09/12/17 07:15 97.9 F 84 20 100 09/12/17 07:14 97.9 F 83 100 09/12/17 07:13 97.9 F 83 16 100 09/12/17 07:12 97.9 F 81 19 100 09/12/17 07:11 97.9 F 83 16 100 09/12/17 07:10 97.9 F 85 24 100 09/12/17 07:09 97.9 F 81 24 100 09/12/17 07:08 97.9 F 81 20 100 09/12/17 07:07 97.9 F 82 19 100 09/12/17 07:06 97.9 F 82 19 100 Intake and Output (Last 8hrs): Intake & Output 09/11/17 09/12/17 09/12/17 22:59 06:59 14:59 Intake Total 1295 1795 Output Total 12 8 Balance 1283 1787 Intake: IV 953 1155 Femoral 904 1155 Tube Feeding 342 240 Other 400 Output: Urine 12 8 Urethral (Urban) 12 8 Other: # Bowel Movements 0 1 - Physical Exam Head: Positive for: Atraumatic, Normocephalic Pupils: Positive for: Non-Reactive, Other (dilated, +3 pupils both sides) Conjunctiva: Positive for: Normal Mouth: Positive for: Moist Mucous Membranes, Other (intubated) Nose (External): Positive for: Other (NG tube in place) Respiratory/Chest: Positive for: Other (Coarse breath sound bilaterally). Negative for: Wheezes, Rales, Rhonchi Cardiovascular: Positive for: Regular Rate and Rhythm, Normal S1, S2. Negative for: Murmurs Abdomen: Positive for: Normal Bowel Sounds, Feeding Tubes, Other (Obese) Genitourinary/Pelvic Exam: Positive for: Other (Urban in place) Back: Positive for: Normal Inspection Upper Extremity: Positive for: Normal Inspection. Negative for: Cyanosis, Edema Lower Extremity: Positive for: Edema (+3 Pitting edema), Other (L foot dressed by Dr. Anderson for diabetic ulcer) Neurological: Positive for: Other (Unresponsive) Skin: Positive for: Dry, Other (Anasarca ). Negative for: Warm (Upper and lower extremities cool to touch), Rashes - Medications Active Medications: Active Medications Generic Name Dose Route Start Last Admin Trade Name Freq PRN Reason Stop Dose Admin Heparin Sodium (Porcine) 5,000 units 09/09/17 22:00 09/12/17 09:15 Heparin SC 5,000 units Q12 NIDHI Administration Protocol Hydrocortisone Sodium Succinate 50 mg 09/12/17 10:00 Solu-Cortef IVP Q12 NIDHI Meropenem 500 mg/ Sodium 50 mls @ 100 mls/hr 09/09/17 22:00 09/12/17 09:14 Chloride IVPB 09/18/17 22:01 100 mls/hr Q12 NIDHI Administration Protocol Dextrose 1,000 mls @ 100 mls/hr 09/11/17 07:30 09/11/17 20:38 Dextrose 5% In Water 1000 Ml IV 100 mls/hr .Q10H NIDHI Administration Insulin Human Regular 0 units 09/09/17 12:00 09/12/17 06:10 Humulin R Med SC 8 units Q6 NIDHI Administration Protocol Nystatin 0 gm 09/09/17 13:29 09/11/17 12:37 Nystop Topical Powder TOP 1 applic Q8 PRN Administration Itching / Pruritus Pantoprazole Sodium 40 mg 09/09/17 10:00 09/12/17 09:15 Protonix Inj IVP 40 mg DAILY NIDHI Administration - Patient Studies Lab Studies: Microbiology Studies 09/09/17 06:30 Blood Culture - Preliminary Blood NO GROWTH AFTER 3 DAYS 09/09/17 06:30 Blood Culture - Preliminary Blood NO GROWTH AFTER 3 DAYS 09/09/17 08:15 Gram Stain - Final Sputum Sputum Culture - Final NORMAL ORAL CYNDIE 09/09/17 08:15 MRSA Culture (Admit) - Final Nose MRSA NOT DETECTED Lab Studies 09/12/17 09/12/17 09/12/17 Range/Units 09:00 06:10 05:15 WBC (4.5-11.0) 10^3/ul RBC (3.5-6.1) 10^6/uL Hgb (12.0-16.0) g/dL Hct (36.0-48.0) % MCV (80.0-105.0) fl MCH (25.0-35.0) pg MCHC (31.0-37.0) g/dl RDW (11.5-14.5) % Plt Count (120.0-450.0) 10^3/uL MPV (7.0-11.0) fl Gran % (50.0-68.0) % Lymph % (Auto) (22.0-35.0) % Dickson % (Auto) (1.0-6.0) % Eos % (Auto) (1.5-5.0) % Baso % (Auto) (0.0-3.0) % Gran # (1.4-6.5) Lymph # (Auto) (1.2-3.4) Dickson # (Auto) (0.1-0.6) Eos # (Auto) (0.0-0.7) Baso # (Auto) (0.0-2.0) K/mm3 pCO2 32 L (35-45) mm/Hg pO2 350.0 H (80-100) mm/Hg HCO3 16.1 L (21-28) mmol/L ABG pH 7.31 L (7.35-7.45) ABG Total CO2 17.1 L (22-28) mmol.L ABG O2 Saturation 100.0 H (95-98) % ABG O2 Content 11.8 L (15-23) ML/dl ABG Base Excess -9.3 L (-2.0-3.0) mmol/L ABG Hemoglobin 7.9 L (11.7-17.4) g/dL ABG Carboxyhemoglobin 1.4 (0.5-1.5) % POC ABG HHb (Measured) 0 (0-5) % ABG Methemoglobin 1.0 (0.0-3.0) % ABG O2 Capacity 11.8 L (16-24) mL/dl Hgb O2 Saturation 97.6 (95.0-98.0) % FiO2 100.0 % Sodium 148 (132-148) mmol/L Potassium 4.1 (3.6-5.0) mmol/L Chloride 116 H (98-107) mmol/L Carbon Dioxide 18 L (21-33) mmol/L Anion Gap 18 (10-20) BUN 75 H (7-21) mg/dL Creatinine 3.3 H (0.7-1.2) mg/dl Est GFR ( Amer) 17 Est GFR (Non-Af Amer) 14 POC Glucose (mg/dL) (65-110) mg/dL Random Glucose 395 H* D (70-110) mg/dL Calcium 7.8 L (8.4-10.5) mg/dL Phosphorus 4.5 (2.5-4.5) mg/dL Magnesium 2.0 (1.7-2.2) mg/dL Total Bilirubin 0.5 (0.2-1.3) mg/dL AST 98 H D (14-36) U/L ALT 43 (7-56) U/L Alkaline Phosphatase 125 (38-126) U/L Total Protein 5.4 L (5.8-8.3) g/dL Albumin 2.6 L (3.0-4.8) g/dL Globulin 2.8 gm/dL Albumin/Globulin Ratio 0.9 L (1.1-1.8) Ur Random Creatinine mg/dL Ur Random Sodium meq/L Vancomycin Trough 17.8 H* (5.0-10.0) ug/mL Ur Strep pneumoniae Ag 09/12/17 09/12/17 09/11/17 Range/Units 05:15 00:09 17:22 WBC 24.4 H (4.5-11.0) 10^3/ul RBC 3.21 L (3.5-6.1) 10^6/uL Hgb 8.7 L (12.0-16.0) g/dL Hct 26.6 L (36.0-48.0) % MCV 82.9 (80.0-105.0) fl MCH 27.1 (25.0-35.0) pg MCHC 32.7 (31.0-37.0) g/dl RDW 18.3 H (11.5-14.5) % Plt Count 101 L (120.0-450.0) 10^3/uL MPV 10.8 (7.0-11.0) fl Gran % 91.5 H (50.0-68.0) % Lymph % (Auto) 3.7 L (22.0-35.0) % Dickson % (Auto) 4.8 (1.0-6.0) % Eos % (Auto) 0.0 L (1.5-5.0) % Baso % (Auto) 0.0 (0.0-3.0) % Gran # 22.31 H (1.4-6.5) Lymph # (Auto) 0.9 L (1.2-3.4) Dickson # (Auto) 1.2 H (0.1-0.6) Eos # (Auto) 0.0 (0.0-0.7) Baso # (Auto) 0.01 (0.0-2.0) K/mm3 pCO2 (35-45) mm/Hg pO2 (80-100) mm/Hg HCO3 (21-28) mmol/L ABG pH (7.35-7.45) ABG Total CO2 (22-28) mmol.L ABG O2 Saturation (95-98) % ABG O2 Content (15-23) ML/dl ABG Base Excess (-2.0-3.0) mmol/L ABG Hemoglobin (11.7-17.4) g/dL ABG Carboxyhemoglobin (0.5-1.5) % POC ABG HHb (Measured) (0-5) % ABG Methemoglobin (0.0-3.0) % ABG O2 Capacity (16-24) mL/dl Hgb O2 Saturation (95.0-98.0) % FiO2 % Sodium (132-148) mmol/L Potassium (3.6-5.0) mmol/L Chloride (98-107) mmol/L Carbon Dioxide (21-33) mmol/L Anion Gap (10-20) BUN (7-21) mg/dL Creatinine (0.7-1.2) mg/dl Est GFR ( Amer) Est GFR (Non-Af Amer) POC Glucose (mg/dL) 325 H 277 H (65-110) mg/dL Random Glucose (70-110) mg/dL Calcium (8.4-10.5) mg/dL Phosphorus (2.5-4.5) mg/dL Magnesium (1.7-2.2) mg/dL Total Bilirubin (0.2-1.3) mg/dL AST (14-36) U/L ALT (7-56) U/L Alkaline Phosphatase (38-126) U/L Total Protein (5.8-8.3) g/dL Albumin (3.0-4.8) g/dL Globulin gm/dL Albumin/Globulin Ratio (1.1-1.8) Ur Random Creatinine mg/dL Ur Random Sodium meq/L Vancomycin Trough (5.0-10.0) ug/mL Ur Strep pneumoniae Ag 09/11/17 09/11/17 09/09/17 Range/Units 15:37 12:33 18:53 WBC (4.5-11.0) 10^3/ul RBC (3.5-6.1) 10^6/uL Hgb (12.0-16.0) g/dL Hct (36.0-48.0) % MCV (80.0-105.0) fl MCH (25.0-35.0) pg MCHC (31.0-37.0) g/dl RDW (11.5-14.5) % Plt Count (120.0-450.0) 10^3/uL MPV (7.0-11.0) fl Gran % (50.0-68.0) % Lymph % (Auto) (22.0-35.0) % Dickson % (Auto) (1.0-6.0) % Eos % (Auto) (1.5-5.0) % Baso % (Auto) (0.0-3.0) % Gran # (1.4-6.5) Lymph # (Auto) (1.2-3.4) Dickson # (Auto) (0.1-0.6) Eos # (Auto) (0.0-0.7) Baso # (Auto) (0.0-2.0) K/mm3 pCO2 (35-45) mm/Hg pO2 (80-100) mm/Hg HCO3 (21-28) mmol/L ABG pH (7.35-7.45) ABG Total CO2 (22-28) mmol.L ABG O2 Saturation (95-98) % ABG O2 Content (15-23) ML/dl ABG Base Excess (-2.0-3.0) mmol/L ABG Hemoglobin (11.7-17.4) g/dL ABG Carboxyhemoglobin (0.5-1.5) % POC ABG HHb (Measured) (0-5) % ABG Methemoglobin (0.0-3.0) % ABG O2 Capacity (16-24) mL/dl Hgb O2 Saturation (95.0-98.0) % FiO2 % Sodium (132-148) mmol/L Potassium (3.6-5.0) mmol/L Chloride (98-107) mmol/L Carbon Dioxide (21-33) mmol/L Anion Gap (10-20) BUN (7-21) mg/dL Creatinine (0.7-1.2) mg/dl Est GFR ( Amer) Est GFR (Non-Af Amer) POC Glucose (mg/dL) 213 H (65-110) mg/dL Random Glucose (70-110) mg/dL Calcium (8.4-10.5) mg/dL Phosphorus (2.5-4.5) mg/dL Magnesium (1.7-2.2) mg/dL Total Bilirubin (0.2-1.3) mg/dL AST (14-36) U/L ALT (7-56) U/L Alkaline Phosphatase (38-126) U/L Total Protein (5.8-8.3) g/dL Albumin (3.0-4.8) g/dL Globulin gm/dL Albumin/Globulin Ratio (1.1-1.8) Ur Random Creatinine 10 mg/dL Ur Random Sodium 133 meq/L Vancomycin Trough (5.0-10.0) ug/mL Ur Strep pneumoniae Ag Not detected Laboratory Results - last 24 hr 09/09/17 09/11/17 09/11/17 18:53 12:33 15:37 WBC RBC Hgb Hct MCV MCH MCHC RDW Plt Count MPV Gran % Lymph % (Auto) Dickson % (Auto) Eos % (Auto) Baso % (Auto) Gran # Lymph # (Auto) Dickson # (Auto) Eos # (Auto) Baso # (Auto) pCO2 pO2 HCO3 ABG pH ABG Total CO2 ABG O2 Saturation ABG O2 Content ABG Base Excess ABG Hemoglobin ABG Carboxyhemoglobin POC ABG HHb (Measured) ABG Methemoglobin ABG O2 Capacity Hgb O2 Saturation FiO2 Sodium Potassium Chloride Carbon Dioxide Anion Gap BUN Creatinine Est GFR ( Amer) Est GFR (Non-Af Amer) POC Glucose (mg/dL) 213 H Random Glucose Calcium Phosphorus Magnesium Total Bilirubin AST ALT Alkaline Phosphatase Total Protein Albumin Globulin Albumin/Globulin Ratio Ur Random Creatinine 10 Ur Random Sodium 133 Vancomycin Trough Ur Strep pneumoniae Ag Not detected 09/11/17 09/12/17 09/12/17 17:22 00:09 05:15 WBC 24.4 H RBC 3.21 L Hgb 8.7 L Hct 26.6 L MCV 82.9 MCH 27.1 MCHC 32.7 RDW 18.3 H Plt Count 101 L MPV 10.8 Gran % 91.5 H Lymph % (Auto) 3.7 L Dickson % (Auto) 4.8 Eos % (Auto) 0.0 L Baso % (Auto) 0.0 Gran # 22.31 H Lymph # (Auto) 0.9 L Dickson # (Auto) 1.2 H Eos # (Auto) 0.0 Baso # (Auto) 0.01 pCO2 pO2 HCO3 ABG pH ABG Total CO2 ABG O2 Saturation ABG O2 Content ABG Base Excess ABG Hemoglobin ABG Carboxyhemoglobin POC ABG HHb (Measured) ABG Methemoglobin ABG O2 Capacity Hgb O2 Saturation FiO2 Sodium Potassium Chloride Carbon Dioxide Anion Gap BUN Creatinine Est GFR ( Amer) Est GFR (Non-Af Amer) POC Glucose (mg/dL) 277 H 325 H Random Glucose Calcium Phosphorus Magnesium Total Bilirubin AST ALT Alkaline Phosphatase Total Protein Albumin Globulin Albumin/Globulin Ratio Ur Random Creatinine Ur Random Sodium Vancomycin Trough Ur Strep pneumoniae Ag 09/12/17 09/12/17 09/12/17 05:15 06:10 09:00 WBC RBC Hgb Hct MCV MCH MCHC RDW Plt Count MPV Gran % Lymph % (Auto) Dickson % (Auto) Eos % (Auto) Baso % (Auto) Gran # Lymph # (Auto) Dickson # (Auto) Eos # (Auto) Baso # (Auto) pCO2 32 L pO2 350.0 H HCO3 16.1 L ABG pH 7.31 L ABG Total CO2 17.1 L ABG O2 Saturation 100.0 H ABG O2 Content 11.8 L ABG Base Excess -9.3 L ABG Hemoglobin 7.9 L ABG Carboxyhemoglobin 1.4 POC ABG HHb (Measured) 0 ABG Methemoglobin 1.0 ABG O2 Capacity 11.8 L Hgb O2 Saturation 97.6 FiO2 100.0 Sodium 148 Potassium 4.1 Chloride 116 H Carbon Dioxide 18 L Anion Gap 18 BUN 75 H Creatinine 3.3 H Est GFR ( Amer) 17 Est GFR (Non-Af Amer) 14 POC Glucose (mg/dL) Random Glucose 395 H* D Calcium 7.8 L Phosphorus 4.5 Magnesium 2.0 Total Bilirubin 0.5 AST 98 H D ALT 43 Alkaline Phosphatase 125 Total Protein 5.4 L Albumin 2.6 L Globulin 2.8 Albumin/Globulin Ratio 0.9 L Ur Random Creatinine Ur Random Sodium Vancomycin Trough 17.8 H* Ur Strep pneumoniae Ag Fingerstick Blood Sugar Results: 395 Review of Systems - Review of Systems Systems not reviewed;Unavailable: Acuity of Condition Critical Care Progress Note - Ventilator Checklist Head of Bed 30 Degrees: Yes Daily Sedation Vacation: Yes Daily Assessment of Readiness to Wean: Yes Daily Spontaneous Breathing Trial: Yes PUD Prophalyxis: Yes DVT Prophylaxis: Yes Oral Care with Chlorhexidine Gluconate {CHG}: Yes - Vent Settings MODE:: PRVC TIDAL VOLUME:: 380 RESP RATE:: 24 FIO2:: 40 PEEP:: 8 - Extremities/Vascular Does the Patient have a Central Venous Catheter?: Yes (Left Femoral ) Insertion Site: Femoral Vein Does the Patient need a Central Venous Catheter?: Yes Does the Patient have a Urban Catheter?: Yes Does the Patient need a Urban Catheter?: Yes Catheter Insertion Criteria: Need for accurate measurement of output in critically ill patient - Prophylaxis GI Prophylaxis GI: PPI - Prophylaxis DVT Prophylaxis DVT: Heparin SQ - Nutrition Nutrition: Nutrition Category Date Time Status NPO Diet [DIET] Diets 09/09/17 Breakfast Ordered Assessment/Plan - Assessment and Plan (Free Text) Assessment: 72 y/o Female with a PMH of HTN, DM2, hypothyroidism, sacral decubitus, and recurrent falls who presents from group home after being found unresponsive (downtime unknown), with no pulses and in asystole. ACLS was intiated and ROSC obtained (please see ED notes and ICU consult note for further information). She was transferred to ICU for further management. Patient required pressors for BP support. Patient is intubated and being ventilated using a low tidal volume ventilation (LTVV) strategy for ARDS. Sedation and paralytic agents (Nimbex) were used. Neuro consulted for possible anoxic injury with recent imaging of CT Head showing anoxic encephalopathy. ID following for infectious causes of sepsis. Cardiology is following for s/p cardiac arrest. Patient prognosis is poor. Palliative care consulted. As per family members, patient is DNR. Plan: Neuro: - d/c propofol - d/c Nimbex paralytic agent - Neurology is consulted, recs appreciated - Maintaining hypothermia - CT head: anoxic encephalopathy Cardio: - Cardio is consulted, recs appreciated - BP is being managed: d/c Levophed - Remove Left Femoral Line - Goal MAP > 65 - Echo (09/10): official read pending. Preliminary read indicates EF 42.5% Pulm: - CT of chest showed extensive bilateral airspace disease with air bronchograms consistent with bilateral lobar pneumonia - ET tube in place - Continue low tidal volume ventilation with TV 380, RR 24, FiO2 40%, PEEP 8 - Urine Legionella and strep pending - Procol .10 - Continue IV antibiotics, ID is consulted, recs appreciated - Maintain head of Bed > 30, Daily oral care, suction prn, DVT and GI ppx - Taper steroids GI: - CT abdomen/pelvis showed distended gallbladder, moderate small bowel thickening and anasarca - NPO - NGT: Patient is on tube feeds - GI ppx Renal: - Oligouria: low urban output - Worsening renal function: trending upwards BUN/Cr - Urine culture pending - Monitor electrolytes daily and replete as necessary : - History of ESBL ID - ID is consulted, recs appreciated - Continue antibiotics per ID: [email or web address] - Blood cultures negative x4 after 3 days - MRSA screen negative - Sputum culture negative - History of ESBL: maintain contact precautions, c/w antibiotics Heme - Leukocytosis is noted, with no bandemia - Anemia is noted but improved from prior visits - DVT PPX Endo - TSH is elevated - Maintain euglycemia - ISS and Accuchecks Q6 Dispo: continue ICU management. Continue with Low Tidal Volume Ventilation. Consult with Palliative care. Case was reviewed and discussed with attending Physician Dr. Galdamez <Germain Galdamez - Last Filed: 09/12/17 11:40> CCU Objective - Vital Signs / Intake & Output Vital Signs (Last 4 hours): Vital Signs Temp Pulse Resp BP Pulse Ox 09/12/17 10:20 97.9 F 78 100 09/12/17 10:10 97.9 F 79 100 09/12/17 10:00 98.1 F 79 139/54 L 100 09/12/17 09:50 98.1 F 80 100 09/12/17 09:40 98.1 F 79 100 09/12/17 09:30 98.1 F 79 100 09/12/17 09:20 98.1 F 79 100 09/12/17 09:10 98.1 F 81 100 09/12/17 09:00 98.1 F 79 140/57 L 100 09/12/17 08:58 98.1 F 81 100 09/12/17 08:50 98.1 F 80 100 09/12/17 08:40 98.1 F 79 100 09/12/17 08:30 98.1 F 80 100 09/12/17 08:20 98.1 F 79 100 09/12/17 08:10 98.1 F 80 100 09/12/17 08:00 98.1 F 80 140/52 L 100 09/12/17 07:50 97.9 F 81 100 09/12/17 07:41 97.9 F 80 99 09/12/17 07:40 97.9 F 82 100 09/12/17 07:39 97.9 F 79 100 09/12/17 07:38 97.9 F 80 10 L 100 09/12/17 07:37 97.9 F 80 4 L 100 09/12/17 07:36 97.9 F 80 11 L 100 Intake and Output (Last 8hrs): Intake & Output 09/11/17 09/12/17 09/12/17 22:59 06:59 14:59 Intake Total 1295 1795 Output Total 12 8 Balance 1283 1787 Weight 214 lb Intake: IV 953 1155 Femoral 904 1155 Tube Feeding 342 240 Other 400 Output: Urine 12 8 Urethral (Urban) 12 8 Other: # Bowel Movements 0 1 - Medications Active Medications: Active Medications Generic Name Dose Route Start Last Admin Trade Name Freq PRN Reason Stop Dose Admin Heparin Sodium (Porcine) 5,000 units 09/09/17 22:00 09/12/17 09:15 Heparin SC 5,000 units Q12 NIDHI Administration Protocol Hydrocortisone Sodium Succinate 50 mg 09/12/17 10:00 Solu-Cortef IVP Q12 NIDHI Meropenem 500 mg/ Sodium 50 mls @ 100 mls/hr 09/09/17 22:00 09/12/17 09:14 Chloride IVPB 09/18/17 22:01 100 mls/hr Q12 NIDHI Administration Protocol Insulin Human Regular 0 units 09/09/17 12:00 09/12/17 06:10 Humulin R Med SC 8 units Q6 NIDHI Administration Protocol Nystatin 0 gm 09/09/17 13:29 09/11/17 12:37 Nystop Topical Powder TOP 1 applic Q8 PRN Administration Itching / Pruritus Pantoprazole Sodium 40 mg 09/09/17 10:00 09/12/17 09:15 Protonix Inj IVP 40 mg DAILY NIDHI Administration - Patient Studies Lab Studies: Microbiology Studies 09/09/17 06:30 Blood Culture - Preliminary Blood NO GROWTH AFTER 3 DAYS 09/09/17 06:30 Blood Culture - Preliminary Blood NO GROWTH AFTER 3 DAYS 09/09/17 08:15 Gram Stain - Final Sputum Sputum Culture - Final NORMAL ORAL CYNDIE 09/09/17 08:15 MRSA Culture (Admit) - Final Nose MRSA NOT DETECTED Lab Studies 09/12/17 09/12/17 09/12/17 Range/Units 09:00 06:10 05:15 WBC (4.5-11.0) 10^3/ul RBC (3.5-6.1) 10^6/uL Hgb (12.0-16.0) g/dL Hct (36.0-48.0) % MCV (80.0-105.0) fl MCH (25.0-35.0) pg MCHC (31.0-37.0) g/dl RDW (11.5-14.5) % Plt Count (120.0-450.0) 10^3/uL MPV (7.0-11.0) fl Gran % (50.0-68.0) % Lymph % (Auto) (22.0-35.0) % Dickson % (Auto) (1.0-6.0) % Eos % (Auto) (1.5-5.0) % Baso % (Auto) (0.0-3.0) % Gran # (1.4-6.5) Lymph # (Auto) (1.2-3.4) Dickson # (Auto) (0.1-0.6) Eos # (Auto) (0.0-0.7) Baso # (Auto) (0.0-2.0) K/mm3 pCO2 32 L (35-45) mm/Hg pO2 350.0 H (80-100) mm/Hg HCO3 16.1 L (21-28) mmol/L ABG pH 7.31 L (7.35-7.45) ABG Total CO2 17.1 L (22-28) mmol.L ABG O2 Saturation 100.0 H (95-98) % ABG O2 Content 11.8 L (15-23) ML/dl ABG Base Excess -9.3 L (-2.0-3.0) mmol/L ABG Hemoglobin 7.9 L (11.7-17.4) g/dL ABG Carboxyhemoglobin 1.4 (0.5-1.5) % POC ABG HHb (Measured) 0 (0-5) % ABG Methemoglobin 1.0 (0.0-3.0) % ABG O2 Capacity 11.8 L (16-24) mL/dl Hgb O2 Saturation 97.6 (95.0-98.0) % FiO2 100.0 % Sodium 148 (132-148) mmol/L Potassium 4.1 (3.6-5.0) mmol/L Chloride 116 H (98-107) mmol/L Carbon Dioxide 18 L (21-33) mmol/L Anion Gap 18 (10-20) BUN 75 H (7-21) mg/dL Creatinine 3.3 H (0.7-1.2) mg/dl Est GFR ( Amer) 17 Est GFR (Non-Af Amer) 14 POC Glucose (mg/dL) (65-110) mg/dL Random Glucose 395 H* D (70-110) mg/dL Calcium 7.8 L (8.4-10.5) mg/dL Phosphorus 4.5 (2.5-4.5) mg/dL Magnesium 2.0 (1.7-2.2) mg/dL Total Bilirubin 0.5 (0.2-1.3) mg/dL AST 98 H D (14-36) U/L ALT 43 (7-56) U/L Alkaline Phosphatase 125 (38-126) U/L Total Protein 5.4 L (5.8-8.3) g/dL Albumin 2.6 L (3.0-4.8) g/dL Globulin 2.8 gm/dL Albumin/Globulin Ratio 0.9 L (1.1-1.8) Ur Random Creatinine mg/dL Ur Random Sodium meq/L Vancomycin Trough 17.8 H* (5.0-10.0) ug/mL Ur Strep pneumoniae Ag 09/12/17 09/12/17 09/11/17 Range/Units 05:15 00:09 17:22 WBC 24.4 H (4.5-11.0) 10^3/ul RBC 3.21 L (3.5-6.1) 10^6/uL Hgb 8.7 L (12.0-16.0) g/dL Hct 26.6 L (36.0-48.0) % MCV 82.9 (80.0-105.0) fl MCH 27.1 (25.0-35.0) pg MCHC 32.7 (31.0-37.0) g/dl RDW 18.3 H (11.5-14.5) % Plt Count 101 L (120.0-450.0) 10^3/uL MPV 10.8 (7.0-11.0) fl Gran % 91.5 H (50.0-68.0) % Lymph % (Auto) 3.7 L (22.0-35.0) % Dickson % (Auto) 4.8 (1.0-6.0) % Eos % (Auto) 0.0 L (1.5-5.0) % Baso % (Auto) 0.0 (0.0-3.0) % Gran # 22.31 H (1.4-6.5) Lymph # (Auto) 0.9 L (1.2-3.4) Dickson # (Auto) 1.2 H (0.1-0.6) Eos # (Auto) 0.0 (0.0-0.7) Baso # (Auto) 0.01 (0.0-2.0) K/mm3 pCO2 (35-45) mm/Hg pO2 (80-100) mm/Hg HCO3 (21-28) mmol/L ABG pH (7.35-7.45) ABG Total CO2 (22-28) mmol.L ABG O2 Saturation (95-98) % ABG O2 Content (15-23) ML/dl ABG Base Excess (-2.0-3.0) mmol/L ABG Hemoglobin (11.7-17.4) g/dL ABG Carboxyhemoglobin (0.5-1.5) % POC ABG HHb (Measured) (0-5) % ABG Methemoglobin (0.0-3.0) % ABG O2 Capacity (16-24) mL/dl Hgb O2 Saturation (95.0-98.0) % FiO2 % Sodium (132-148) mmol/L Potassium (3.6-5.0) mmol/L Chloride (98-107) mmol/L Carbon Dioxide (21-33) mmol/L Anion Gap (10-20) BUN (7-21) mg/dL Creatinine (0.7-1.2) mg/dl Est GFR ( Amer) Est GFR (Non-Af Amer) POC Glucose (mg/dL) 325 H 277 H (65-110) mg/dL Random Glucose (70-110) mg/dL Calcium (8.4-10.5) mg/dL Phosphorus (2.5-4.5) mg/dL Magnesium (1.7-2.2) mg/dL Total Bilirubin (0.2-1.3) mg/dL AST (14-36) U/L ALT (7-56) U/L Alkaline Phosphatase (38-126) U/L Total Protein (5.8-8.3) g/dL Albumin (3.0-4.8) g/dL Globulin gm/dL Albumin/Globulin Ratio (1.1-1.8) Ur Random Creatinine mg/dL Ur Random Sodium meq/L Vancomycin Trough (5.0-10.0) ug/mL Ur Strep pneumoniae Ag 09/11/17 09/11/17 09/09/17 Range/Units 15:37 12:33 18:53 WBC (4.5-11.0) 10^3/ul RBC (3.5-6.1) 10^6/uL Hgb (12.0-16.0) g/dL Hct (36.0-48.0) % MCV (80.0-105.0) fl MCH (25.0-35.0) pg MCHC (31.0-37.0) g/dl RDW (11.5-14.5) % Plt Count (120.0-450.0) 10^3/uL MPV (7.0-11.0) fl Gran % (50.0-68.0) % Lymph % (Auto) (22.0-35.0) % Dickson % (Auto) (1.0-6.0) % Eos % (Auto) (1.5-5.0) % Baso % (Auto) (0.0-3.0) % Gran # (1.4-6.5) Lymph # (Auto) (1.2-3.4) Dickson # (Auto) (0.1-0.6) Eos # (Auto) (0.0-0.7) Baso # (Auto) (0.0-2.0) K/mm3 pCO2 (35-45) mm/Hg pO2 (80-100) mm/Hg HCO3 (21-28) mmol/L ABG pH (7.35-7.45) ABG Total CO2 (22-28) mmol.L ABG O2 Saturation (95-98) % ABG O2 Content (15-23) ML/dl ABG Base Excess (-2.0-3.0) mmol/L ABG Hemoglobin (11.7-17.4) g/dL ABG Carboxyhemoglobin (0.5-1.5) % POC ABG HHb (Measured) (0-5) % ABG Methemoglobin (0.0-3.0) % ABG O2 Capacity (16-24) mL/dl Hgb O2 Saturation (95.0-98.0) % FiO2 % Sodium (132-148) mmol/L Potassium (3.6-5.0) mmol/L Chloride (98-107) mmol/L Carbon Dioxide (21-33) mmol/L Anion Gap (10-20) BUN (7-21) mg/dL Creatinine (0.7-1.2) mg/dl Est GFR ( Amer) Est GFR (Non-Af Amer) POC Glucose (mg/dL) 213 H (65-110) mg/dL Random Glucose (70-110) mg/dL Calcium (8.4-10.5) mg/dL Phosphorus (2.5-4.5) mg/dL Magnesium (1.7-2.2) mg/dL Total Bilirubin (0.2-1.3) mg/dL AST (14-36) U/L ALT (7-56) U/L Alkaline Phosphatase (38-126) U/L Total Protein (5.8-8.3) g/dL Albumin (3.0-4.8) g/dL Globulin gm/dL Albumin/Globulin Ratio (1.1-1.8) Ur Random Creatinine 10 mg/dL Ur Random Sodium 133 meq/L Vancomycin Trough (5.0-10.0) ug/mL Ur Strep pneumoniae Ag Not detected Laboratory Results - last 24 hr 09/09/17 09/11/17 09/11/17 18:53 12:33 15:37 WBC RBC Hgb Hct MCV MCH MCHC RDW Plt Count MPV Gran % Lymph % (Auto) Dickson % (Auto) Eos % (Auto) Baso % (Auto) Gran # Lymph # (Auto) Dickson # (Auto) Eos # (Auto) Baso # (Auto) pCO2 pO2 HCO3 ABG pH ABG Total CO2 ABG O2 Saturation ABG O2 Content ABG Base Excess ABG Hemoglobin ABG Carboxyhemoglobin POC ABG HHb (Measured) ABG Methemoglobin ABG O2 Capacity Hgb O2 Saturation FiO2 Sodium Potassium Chloride Carbon Dioxide Anion Gap BUN Creatinine Est GFR ( Amer) Est GFR (Non-Af Amer) POC Glucose (mg/dL) 213 H Random Glucose Calcium Phosphorus Magnesium Total Bilirubin AST ALT Alkaline Phosphatase Total Protein Albumin Globulin Albumin/Globulin Ratio Ur Random Creatinine 10 Ur Random Sodium 133 Vancomycin Trough Ur Strep pneumoniae Ag Not detected 09/11/17 09/12/1718 17:22 00:09 05:15 WBC 24.4 H RBC 3.21 L Hgb 8.7 L Hct 26.6 L MCV 82.9 MCH 27.1 MCHC 32.7 RDW 18.3 H Plt Count 101 L MPV 10.8 Gran % 91.5 H Lymph % (Auto) 3.7 L Dickson % (Auto) 4.8 Eos % (Auto) 0.0 L Baso % (Auto) 0.0 Gran # 22.31 H Lymph # (Auto) 0.9 L Dickson # (Auto) 1.2 H Eos # (Auto) 0.0 Baso # (Auto) 0.01 pCO2 pO2 HCO3 ABG pH ABG Total CO2 ABG O2 Saturation ABG O2 Content ABG Base Excess ABG Hemoglobin ABG Carboxyhemoglobin POC ABG HHb (Measured) ABG Methemoglobin ABG O2 Capacity Hgb O2 Saturation FiO2 Sodium Potassium Chloride Carbon Dioxide Anion Gap BUN Creatinine Est GFR ( Amer) Est GFR (Non-Af Amer) POC Glucose (mg/dL) 277 H 325 H Random Glucose Calcium Phosphorus Magnesium Total Bilirubin AST ALT Alkaline Phosphatase Total Protein Albumin Globulin Albumin/Globulin Ratio Ur Random Creatinine Ur Random Sodium Vancomycin Trough Ur Strep pneumoniae Ag 09/12/17 09/12/17 09/12/17 05:15 06:10 09:00 WBC RBC Hgb Hct MCV MCH MCHC RDW Plt Count MPV Gran % Lymph % (Auto) Dickson % (Auto) Eos % (Auto) Baso % (Auto) Gran # Lymph # (Auto) Dickson # (Auto) Eos # (Auto) Baso # (Auto) pCO2 32 L pO2 350.0 H HCO3 16.1 L ABG pH 7.31 L ABG Total CO2 17.1 L ABG O2 Saturation 100.0 H ABG O2 Content 11.8 L ABG Base Excess -9.3 L ABG Hemoglobin 7.9 L ABG Carboxyhemoglobin 1.4 POC ABG HHb (Measured) 0 ABG Methemoglobin 1.0 ABG O2 Capacity 11.8 L Hgb O2 Saturation 97.6 FiO2 100.0 Sodium 148 Potassium 4.1 Chloride 116 H Carbon Dioxide 18 L Anion Gap 18 BUN 75 H Creatinine 3.3 H Est GFR ( Amer) 17 Est GFR (Non-Af Amer) 14 POC Glucose (mg/dL) Random Glucose 395 H* D Calcium 7.8 L Phosphorus 4.5 Magnesium 2.0 Total Bilirubin 0.5 AST 98 H D ALT 43 Alkaline Phosphatase 125 Total Protein 5.4 L Albumin 2.6 L Globulin 2.8 Albumin/Globulin Ratio 0.9 L Ur Random Creatinine Ur Random Sodium Vancomycin Trough 17.8 H* Ur Strep pneumoniae Ag Critical Care Progress Note - Nutrition Nutrition: Nutrition Category Date Time Status NPO Diet [DIET] Diets 09/09/17 Breakfast Ordered Assessment/Plan - Assessment and Plan (Free Text) Plan: Patient seen and examined on rounds with resident, agree with note with following additions/exceptions: Patient is 72yo female with PMhx of dementia, Hypertension, DM2, hypothyroidism , sacral decubitus, recurrent falls, presented from CT s/p cardiac arrest, asystole, unknown downtime, intubated in the field, had another cardiac arrest in the hospital, asystole, ROSC obtained. Currently intubated, off sedation. Labs and imaging reviewed, shows diffuse bilateral infiltrates with P/F> 300 on FiO2 40%, oxygenation improving. Pt remains OFF vasopressor support, stress dose steroids tapered On exam does not overbreath the ventilator, no gag reflex, no corneal reflexes present, concerning for brain , may require brain flow scan, neurology following Overall prognosis is extremely poor. PNA ARDS Cardiac Arrest s/p ROSC Septic Shock Hypoxic resp failure Recommend: - cont with vent support, low tidal ventilation - broad spectrum abx, Vanco, Merrem, follow up ID - stress dose steroids taper - monitor HH - DC femoral line - FS control - neurology follow up - monitor renal function, follow up renal, DC D5W - HOB 30 deg elevated - GI ppx - DVT ppx - Overall prognosis poor - Monitor in MICU Critical care time 35 minutes
--- NOTE | 2017-09-12 11:48 | CP.PCM.PN ---
Subjective - Date & Time of Evaluation Date of Evaluation: 09/12/17 Time of Evaluation: 11:46 - Subjective Subjective: Patient seen and examined this AM. Patient is off sedation and remains intubated. Patient is unresponsive to painful stimuli and with absent gag and corneal reflex. Objective - Vital Signs/Intake and Output Vital Signs (last 24 hours): Temp Pulse Resp BP Pulse Ox 97.9 F 78 10 L 139/54 L 100 09/12/17 10:20 09/12/17 10:20 09/12/17 07:38 09/12/17 10:00 09/12/17 10:20 Intake and Output: 09/12/17 09/12/17 06:59 18:59 Intake Total 1844 Output Total 8 Balance 1836 - Medications Medications: Current Medications Aspirin (Aspirin Chewable) 81 mg PO DAILY [facility] Heparin Sodium (Porcine) (Heparin) 5,000 units SC Q12 NIDHI PRN Reason: Protocol Last Admin: 09/12/17 09:15 Dose: 5,000 units Hydrocortisone Sodium Succinate (Solu-Cortef) 50 mg IVP Q12 [facility] Last Admin: 09/12/17 11:36 Dose: 50 mg Meropenem 500 mg/ Sodium (Chloride) 50 mls @ 100 mls/hr IVPB Q12 NIDHI PRN Reason: Protocol Stop: 09/18/17 22:01 Last Admin: 09/12/17 09:14 Dose: 100 mls/hr Insulin Human Regular (Humulin R Med) 0 units SC Q6 NIDHI PRN Reason: Protocol Last Admin: 09/12/17 06:10 Dose: 8 units Nystatin (Nystop Topical Powder) 0 gm TOP Q8 PRN PRN Reason: Itching / Pruritus Last Admin: 09/11/17 12:37 Dose: 1 applic Pantoprazole Sodium (Protonix Inj) 40 mg IVP DAILY [facility] Last Admin: 09/12/17 09:15 Dose: 40 mg - Labs Labs: 09/12/17 05:15 09/12/17 05:15 PT 14.5 SECONDS (9.4-12.5) H 09/10/17 06:00 INR 1.26 (0.93-1.08) H 09/10/17 06:00 APTT 31.2 Seconds (25.1-36.5) 09/10/17 06:00 - Head Exam Head Exam: ATRAUMATIC, NORMAL INSPECTION, NORMOCEPHALIC - Eye Exam Additional comments: Fixed without reaction to light - ENT Exam Additional comments: ET tube in place - Respiratory Exam Respiratory Exam: Clear to Ausculation Bilateral, NORMAL BREATHING PATTERN - Cardiovascular Exam Cardiovascular Exam: REGULAR RHYTHM, +S1, +S2 - GI/Abdominal Exam GI & Abdominal Exam: Soft, Normal Bowel Sounds - Neurological Exam Additional comments: GCS 3 Absent gag, cough, corneal reflex Pupils fixed non reactive to light No spontaneous movement of extremities noted on exam Assessment and Plan - Assessment and Plan (Free Text) Assessment: 71 year old female with past medical history of HTN, demenita, hypothyroidism, reccurent falls and recent history of syncope and anemia who presented to [facility] ED s/p cardiac arrest. Patient currently has GCS of 3, off sedation for 48 hours and intubated. Patient with recent imaging suggestive of cerebral edema and possible stroke Plan: Hypoxic brain injury - S/p cardiac arrest, unknown total down time - Head CT(09/09/17): showing signs of edema and with loss of jones white junction - Repeat Head CT: extensive edema involving both hemispheres, brainstem, and cerebellum, hypodenisty areas suggestive of stroke - MRI Brain for evaluation of stroke - EEG for brainwave evaluation - Start ASA 81mg - Maintatin Euglycemia, replete lytes as needed - Maintatin SaO2>90% - Head above 30 degrees Case and plan discussed with attending Cristian Barfield PGY-2
--- NOTE | 2017-09-12 12:50 | CP.PCM.PN ---
<Sumaya Lieberman - Last Filed: 09/12/17 12:52> Subjective - Date & Time of Evaluation Date of Evaluation: 09/12/17 Time of Evaluation: 12:47 - Subjective Subjective: Podiatry Progress Note 72 yo female seen and examined at bedside in ICU with attending Dr. Anderson for left foot lateral post surgical ulceration site. Pt is unable to respond to questions due to altered mental status. Dressing is C/D/I and multipodus boots are in place to both lower extremities. Nursing reports no acute changes overnight. Objective - Vital Signs/Intake and Output Vital Signs (last 24 hours): Temp Pulse Resp BP Pulse Ox 97.3 F L 79 10 L 142/65 99 09/12/17 12:30 09/12/17 12:30 09/12/17 07:38 09/12/17 12:00 09/12/17 12:30 Intake and Output: 09/12/17 09/12/17 06:59 18:59 Intake Total 1844 Output Total 8 Balance 1836 - Medications Medications: Current Medications Aspirin (Aspirin Chewable) 81 mg PO DAILY [facility] Last Admin: 09/12/17 11:30 Dose: 81 mg Heparin Sodium (Porcine) (Heparin) 5,000 units SC Q12 NIDHI PRN Reason: Protocol Last Admin: 09/12/17 09:15 Dose: 5,000 units Hydrocortisone Sodium Succinate (Solu-Cortef) 50 mg IVP Q12 [facility] Last Admin: 09/12/17 11:36 Dose: 50 mg Meropenem 500 mg/ Sodium (Chloride) 50 mls @ 100 mls/hr IVPB Q12 NIDHI PRN Reason: Protocol Stop: 09/18/17 22:01 Last Admin: 09/12/17 09:14 Dose: 100 mls/hr Insulin Human Regular (Humulin R Med) 0 units SC Q6 NIDHI PRN Reason: Protocol Last Admin: 09/12/17 12:00 Dose: 8 units Nystatin (Nystop Topical Powder) 0 gm TOP Q8 PRN PRN Reason: Itching / Pruritus Last Admin: 09/11/17 12:37 Dose: 1 applic Pantoprazole Sodium (Protonix Inj) 40 mg IVP DAILY [facility] Last Admin: 09/12/17 09:15 Dose: 40 mg - Labs Labs: 09/12/17 05:15 07/09/18 05:15 PT 14.5 SECONDS (9.4-12.5) H 09/10/17 06:00 INR 1.26 (0.93-1.08) H 09/10/17 06:00 APTT 31.2 Seconds (25.1-36.5) 09/10/17 06:00 - Constitutional Appears: Well, Non-toxic, No Acute Distress - Extremities Exam Additional comments: Lower extremity focused exam: Vasc: DP and PT pulses palpable 1/4 B/L. Temperature gradient warm to cool. CFT < 3 sec to all digits. No pedal edema is noted Derm: Open superficial ulceration measuring approximately 6 cm x 3 cm x 0.2 cm to left lateral forefoot with 85% granular and 15% fibrotic wound base. Good signs of healing noted. No lukas wound erythema, no tunneling or undermining present, no malodor, no streaking, no purulence, No other clinical signs of infection. Wound appears stable at this time. Stage 1 pressure ulceration noted to plantar medial heel with no breaks in skin or soft tissue. Right plantar heel exhibits necrotic eschar, stable. Neuro: Unable to assess due to altered mental status Ortho: Unable to assess pain and discomfort due to mental status. No other gross deformities noted - Neurological Exam Neurological Exam: Altered - Psychiatric Exam Psychiatric exam: Normal Affect, Normal Mood Assessment and Plan - Assessment and Plan (Free Text) Assessment: 72 y/o female with left lateral foot diabetic ulceration Plan: Pt seen and evaluated with Dr. Anderson Chart, labs and vitals reviewed; Afebrile, WBC 24.4 Left lateral foot ulcer cleaned with saline dressed with Optifoam bandage Heel pads to be worn all times in bed Continue abx - Meropenem Will continue to follow pt and perform daily local wound care <Eboni Anderson - Last Filed: 09/17/17 18:55> Objective - Vital Signs/Intake and Output Vital Signs (last 24 hours): Temp Pulse Resp BP Pulse Ox 98.4 F 26 L 7 L 95/44 L 45 L 09/16/17 13:20 09/16/17 13:54 09/16/17 14:07 09/16/17 13:00 09/16/17 13:50 - Labs Labs: 09/16/17 06:00 09/16/17 06:00 PT 14.5 SECONDS (9.4-12.5) H 09/10/17 06:00 INR 1.26 (0.93-1.08) H 09/10/17 06:00 APTT 31.2 Seconds (25.1-36.5) 09/10/17 06:00 Attending/Attestation - Attestation I have personally seen and examined this patient.: Yes I have fully participated in the care of the patient.: Yes I have reviewed all pertinent clinical information, including history, physical exam and plan: Yes
--- NOTE | 2017-09-12 13:06 | CP.PCM.PN ---
Subjective - Date & Time of Evaluation Date of Evaluation: 09/12/17 Time of Evaluation: 10:30 - Subjective Subjective: PGY-1 Nephrology Progress Note for Dr. Cosby's service Patient seen and examined at bedside. Patient intubated in ICU room off sedation but with enteral feeds. Patient is unable to respond because of altered mental status secondary to possible anoxic brain injury. Padilla bag has less than 200 ml of urine. Nursing reported no acute events overnight. Patient not responding to sternal rub. Patient has absent corneal and gag reflex. Objective - Vital Signs/Intake and Output Vital Signs (last 24 hours): Temp Pulse Resp BP Pulse Ox 97.3 F L 79 10 L 142/65 99 09/12/17 12:30 09/12/17 12:30 09/12/17 07:38 09/12/17 12:00 09/12/17 12:30 Intake and Output: 09/12/17 09/12/17 06:59 18:59 Intake Total 1844 Output Total 8 Balance 1836 - Medications Medications: Current Medications Aspirin (Aspirin Chewable) 81 mg PO DAILY [facility] Last Admin: 09/12/17 11:30 Dose: 81 mg Heparin Sodium (Porcine) (Heparin) 5,000 units SC Q12 NIDHI PRN Reason: Protocol Last Admin: 09/12/17 09:15 Dose: 5,000 units Hydrocortisone Sodium Succinate (Solu-Cortef) 50 mg IVP Q12 [facility] Last Admin: 09/12/17 11:36 Dose: 50 mg Meropenem 500 mg/ Sodium (Chloride) 50 mls @ 100 mls/hr IVPB Q12 NIDHI PRN Reason: Protocol Stop: 09/18/17 22:01 Last Admin: 09/12/17 09:14 Dose: 100 mls/hr Insulin Human Regular (Humulin R Med) 0 units SC Q6 NIDHI PRN Reason: Protocol Last Admin: 09/12/17 12:00 Dose: 8 units Nystatin (Nystop Topical Powder) 0 gm TOP Q8 PRN PRN Reason: Itching / Pruritus Last Admin: 09/11/17 12:37 Dose: 1 applic Pantoprazole Sodium (Protonix Inj) 40 mg IVP DAILY [facility] Last Admin: 09/12/17 09:15 Dose: 40 mg - Labs Labs: 09/12/17 05:15 09/12/17 05:15 PT 14.5 SECONDS (9.4-12.5) H 09/10/17 06:00 INR 1.26 (0.93-1.08) H 09/10/17 06:00 APTT 31.2 Seconds (25.1-36.5) 09/10/17 06:00 - Additional Findings Additional findings: - Head Exam Head Exam: ATRAUMATIC, NORMAL INSPECTION, NORMOCEPHALIC - Eye Exam Additional comments: Fixed without reaction to light - ENT Exam Additional comments: ET tube in place - Respiratory Exam Respiratory Exam: Clear to Ausculation Bilateral, NORMAL BREATHING PATTERN - Cardiovascular Exam Cardiovascular Exam: REGULAR RHYTHM, +S1, +S2 - GI/Abdominal Exam GI & Abdominal Exam: Soft, Normal Bowel Sounds - Exam : Padilla inserted with 200 ml output - Neurological Exam Additional comments: GCS 3 Absent gag, cough, corneal reflex Pupils fixed non reactive to light No spontaneous movement of extremities noted on exam Assessment and Plan - Assessment and Plan (Free Text) Assessment: Patient is a 72 y.o. female whose past medical history includes hypertension, hyperlipidemia, Type 2 diabetes mellitus, hypothyroidism, and dementia, who presents to the Emergency department transferred from [facility] brought in by EMS status post cardiac arrest. EMS achieved ROSC before arrival to ED, however patient coded again in ED and required CPR/ACLS protocol. Patient is currently intubated with imaging showing cerebral edema and possible stroke. Nephrology consulted for elevated Creatinine levels from baseline. Plan: Acute Renal Failure -Cr 3.8; On admission was 1.8; Baseline is 1.3 -Stable Electrolyte status; no need for emergent dialysis -Metabolic acidosis improving; Patient only requiring 40% FIO2 to maintain adequate oxygen saturation -Patient anuric; Clinically consistent in setting of cardiac arrest and sepsis; 200 ml of urine collected in Padilla bag; -Patient has no neurologic response with poor overall prognosis -Trend Vanc trough levels; Do not use unless levels are less than 15; Currently on meropenem -Discussed with ICU team that there is no need to give any more volume; IVF dc' ed -CT shows anoxic brain injury and possible strokes; -Possible organ donor; will consider HD if necessary -Monitor electrolytes and BUN/Cr Hypernatremia (Resolved) -Na 148; Improved after fluids -Fluids dc'ed as patient is volume overloaded -Patient sodium should stay stable as they are not able to make urine Metabolic Acidosis -per ABG today; pH 7.31; Acidosis improving with oxygen delivery reduced to 40 FIO2 -Avoid sodium bicarb as this will add to volume overload Sepsis -Continue Meropenem; WBC 24.4; Podiatry following -Avoid Vanc as levels are high and it is nephrotoxic; -Vanc trough 17.8
--- NOTE | 2017-09-12 15:26 | PN ---
DATE: 09/12/2017 REASON FOR CONSULTATION AND FOLLOWUP: Cardiac evaluation, status post cardiac arrest, intubated, respiratory failure. SUBJECTIVE: The patient remains intubated, on vent, no response to verbal or painful stimuli. OBJECTIVE: GENERAL: Patient had intubated, no gag reflex. VITAL SIGNS: Temperature afebrile, heart rate 78, blood pressure 139/54. HEENT: PERRLA. Extraocular muscles intact. NECK: Supple. No carotid bruit or thyromegaly. CHEST: Clear to auscultation. HEART: S1 and S2 regular. ABDOMEN: Soft. EXTREMITIES: Clubbing and cyanosis negative. LABORATORY DATA: Blood workup as follows; WBC 24.4, hemoglobin 8.7, hematocrit 26.6, platelet count 101. Chemistry shows sodium 148, potassium 4, chloride 106, carbon dioxide 18, anion gap of 18, BUN 78, creatinine 3.3. IMPRESSION: Status post cardiac arrest; status post intubated; rule out anoxic encephalopathy; protein-calorie malnutrition, which was present on admission; diabetes; hypertension. RECOMMENDATIONS: We will review echo. Overall, the patient's condition is critical, prognosis is extremely poor to the full recovery is unlikely. Code status is DNR. Consider hospice care. We will follow with you. In the interim, continue supportive care. Thank you, Dr. Gilman, for providing us the opportunity in taking care of Tamy Abbott. Alayna Trent MD
--- NOTE | 2017-09-12 15:37 | CP.PCM.PN ---
Subjective - Date & Time of Evaluation Date of Evaluation: 09/12/17 Time of Evaluation: 08:25 - Subjective Subjective: No fevers, but still on the ventilator, sedated. Objective - Vital Signs/Intake and Output Vital Signs (last 24 hours): Temp Pulse Resp BP Pulse Ox 98.4 F 83 24 139/54 L 100 09/12/17 06:03 09/12/17 06:03 09/12/17 06:03 09/12/17 06:00 09/12/17 06:03 Intake and Output: 09/11/17 09/12/17 18:59 06:59 Intake Total 1362 1844 Output Total 12 8 Balance 1350 1836 - Medications Medications: Current Medications Heparin Sodium (Porcine) (Heparin) 5,000 units SC Q12 NIDHI PRN Reason: Protocol Last Admin: 09/11/17 21:43 Dose: 5,000 units Hydrocortisone Sodium Succinate (Solu-Cortef) 100 mg IVP Q8 [facility] Last Admin: 09/12/17 06:10 Dose: 100 mg Norepinephrine Bitartrate 8 mg (/ Sodium Chloride) 508 mls @ 15.24 mls/hr IV .Q24H PRN; Protocol; 4 MCG/MIN PRN Reason: TITRATE PER MD ORDER Last Titration: 09/10/17 18:27 Dose: 0 mcg/min, 0 mls/hr Propofol (Diprivan) 1,000 mg in 100 mls @ 2.693 mls/hr IV .Q24H PRN; Protocol; 5 MCG/KG/MIN PRN Reason: TITRATE PER MD ORDER Last Titration: 09/11/17 20:30 Dose: 0 mcg/kg/min, 0 mls/hr Cisatracurium Besylate 200 mg/ (Sodium Chloride) 270 mls @ 7.27 mls/hr IV .Q24H PRN; Protocol; 1 MCG/KG/MIN PRN Reason: TITRATE PER MD ORDER Last Titration: 09/11/17 07:05 Dose: 0 mcg/kg/min, 0 mls/hr Meropenem 500 mg/ Sodium (Chloride) 50 mls @ 100 mls/hr IVPB Q12 NIDHI PRN Reason: Protocol Stop: 09/18/17 22:01 Last Admin: 09/11/17 21:43 Dose: 100 mls/hr Dextrose (Dextrose 5% In Water 1000 Ml) 1,000 mls @ 100 mls/hr IV .Q10H [facility]IDHI Last Admin: 09/11/17 20:38 Dose: 100 mls/hr Insulin Human Regular (Humulin R Med) 0 units SC Q6 NIDHI PRN Reason: Protocol Last Admin: 09/12/17 06:10 Dose: 8 units Nystatin (Nystop Topical Powder) 0 gm TOP Q8 PRN PRN Reason: Itching / Pruritus Last Admin: 09/11/17 12:37 Dose: 1 applic Pantoprazole Sodium (Protonix Inj) 40 mg IVP DAILY [facility] Last Admin: 09/11/17 10:00 Dose: 40 mg - Labs Labs: 09/12/17 05:15 09/12/17 05:15 PT 14.5 SECONDS (9.4-12.5) H 09/10/17 06:00 INR 1.26 (0.93-1.08) H 09/10/17 06:00 APTT 31.2 Seconds (25.1-36.5) 09/10/17 06:00 - Constitutional Appears: Other (intubated and sedated) - Head Exam Head Exam: NORMAL INSPECTION - ENT Exam Additional comments: ET tube in place - Respiratory Exam Respiratory Exam: Decreased Breath Sounds - Cardiovascular Exam Cardiovascular Exam: +S1, +S2 - GI/Abdominal Exam GI & Abdominal Exam: Soft. absent: Tenderness Assessment and Plan - Assessment and Plan (Free Text) Plan: Assessment Systemic Inflammatory response syndrome after cardiorespiratory arrest with VDRF , R/O severe sepsis from bilateral pneumonia history of right foot dry gangrene with ulceration DM HTN hyperthyroidism dementia Plan continue Vancomycin and Merrem pending final culture results; PCT is only 0.1 Vanco trough is 17.8 today, still within the 15-20 target range - will check another level tomorrow overall prognosis is poor
--- NOTE | 2017-09-12 16:28 | CARD ---
APPROVED REPORT EXAM: Two-dimensional and M-mode echocardiogram with Doppler and color Doppler. INDICATION 2D DIMENSIONS IVSd1.9 (0.7-1.1cm)LVDd3.6 (3.9-5.9cm) PWd1.6 (0.7-1.1cm)LVDs2.9 (2.5-4.0cm) FS (%) 20.4 %LVEF (%)42.5 (>50%) M-Mode DIMENSIONS Left Atrium (MM)2.70 (2.5-4.0cm)Aortic Root3.20 (2.2-3.7cm) Aortic Cusp Exc.1.70 (1.5-2.0cm) Aortic Valve AoV Peak Vtvvehhc825.0cm/Aldo Peak GR.7mmHg Mitral Valve MV E Itnzccwb42.0cm/sMV A Xjfnujmz90.8cm/sE/A ratio0.9 TDI Lateral E' Peak V3.61cm/sMedial E' Peak V5.46cm/sE/Lateral E'21.9 E/Medial E'14.5 Tricuspid Valve TR Peak [id number]/sRAP [id number] Peak Gr.41mmHg [id number] LEFT VENTRICLE The left ventricle is normal size. There is mild concentric left ventricular hypertrophy. Left ventricle systolic function is low normal.EF-50% There is mild hypokinesis in the mid-inferolateral wall. Transmitral Doppler flow pattern is Grade III-reversible restrictive diastolic dysfunction. No left ventricle thrombus noted on this study. There is no ventricular septal defect visualized. There is no left ventricular aneurysm. There is no mass noted in the left ventricle. RIGHT VENTRICLE The right ventricle is normal size. There is normal right ventricular wall thickness. The right ventricular systolic function is normal. ATRIA The left atrium is borderline dilated. The right atrium size is normal. The interatrial septum is intact with no evidence for an atrial septal defect. AORTIC VALVE The aortic valve is thickened but opens well. There is trace aortic regurgitation. There is no aortic valvular stenosis. There is no aortic valvular vegetation. MITRAL VALVE The mitral valve is thickened but opens well. Mitral regurgitation is trace. There is no mitral valve stenosis. There is no evidence of mitral valve prolapse. TRICUSPID VALVE The tricuspid valve leaflets are thickened , but open well. There is mild to moderate tricuspid regurgitation.RVSP 51 mmof Hg. There is no tricuspid valve stenosis. There is no tricuspid valve prolapse or vegetation. PULMONIC VALVE The pulmonic valve is borderline thickened. There is trace pulmonic valvular regurgitation. There is no pulmonic valvular stenosis. GREAT VESSELS The aortic root is normal in size. The ascending aorta is normal in size. The pulmonary artery is normal. The IVC is dilated. PERICARDIAL EFFUSION There is large left pleural effusion. There is a small pericardial effusion. <Conclusion> The left ventricle is normal size. There is mild concentric left ventricular hypertrophy. Left ventricle systolic function is low normal.EF-50% There is trace aortic regurgitation. Mitral regurgitation is trace. There is mild to moderate tricuspid regurgitation.RVSP 51 mmof Hg. The IVC is dilated. There is large left pleural effusion. There is a small pericardial effusion. TDS pt was on vent at the time of Echo. no vegetation or thrombus noted.
--- NOTE | 2017-09-12 23:20 | PN ---
DATE: 09/12/2017 PULMONARY CRITICAL CARE PROGRESS NOTE REFERRING PHYSICIAN: Deisy Gilman MD SUBJECTIVE: She is unresponsive, on ventilator, off sedation, not much ET tube secretion. No vomiting, no hematuria, no diarrhea. Does have leg swelling. OBJECTIVE: GENERAL: Unresponsive, on ventilator, hypothermic. VITAL SIGNS: Heart rate is 73, respiratory rate is 20, blood pressure 148/73, pulse ox 96% on ventilator. HEENT: Moist mucous membranes. Crowded airway. Mallampati score is 4. ET tube, no secretion. NECK: Supple. No JVD. LUNGS: Have scattered rhonchi. HEART: S1 and S2. ABDOMEN: Soft, nondistended. EXTREMITIES: Does have edema. NEUROLOGIC: Unresponsive. MEDICATIONS: She is on aspirin 81 mg daily, heparin 5000 units subcu every 12 hours, insulin coverage, meropenem 500 mg every 12 hours, nystatin to affected area every 8 hours p.r.n., Protonix 40 mg daily, Solu-Cortef 50 mg twice a day. LABORATORY DATA: Shows hemoglobin 8.7, hematocrit 26.6, WBC 24,000, platelet count is 101. ABG show pH 7.31, pCO2 of 32, O2 of 350 that is on 100% oxygen on ventilator. Sodium 148, potassium 4.1, chloride 116, bicarbonate 18, BUN 75, creatinine 3.3, glucose 370, calcium is 7.8, phosphorus 4.5, magnesium 2, AST 98, ALT 43, alk phos is 125. Albumin is 2.6. Vanco trough level is 18. Urine culture has some yeast. No sputum. Blood culture is unremarkable. Chest x-ray done today shows persistent, but improved, pulmonary venous congestion, persistent mild bilateral lower lobe alveolar-type infiltrate and bilateral effusion. MRI of the brain is being done and also EEG is planned. IMPRESSION AND PLAN: Status post cardiopulmonary arrest, probably hypoxic encephalopathy, history of dementia, hypertension, diabetes, peripheral vascular disease, history of heel ulcers that is with vascular insufficiency, history of urinary tract infection with extended-spectrum beta-lactamase organism. Case discussed with nursing staff, also spoke to palliative care who have been speaking to the family. We will titrate FiO2 to pulse ox 94 and above. Keep head elevated at 45 degrees. Antibiotics as per Infectious Diseases. Taper off Solu-Cortef. Followup ABG, chest x-ray, CBC, CMP in the morning. Overall poor prognosis. Critical care time, more than 35 minutes. Thank you and we will follow with you. Alayna Terry MD
[2017-09-13] MEDS: Insulin Reg-MEDIUM-Coverage SC SCH ×4 (06:00→17:18)
[2017-09-13 06:08] LABS: BASO # 0.01 K/mm3 (0.0-2.0); GRAN # 19.04 (1.4-6.5); GRAN % 88.6 % (50.0-68.0); HEMOGLOBIN 8.5 g/dL (12.0-16.0); LYMPH # 1.1 (1.2-3.4); LYMPH % 5.2 % (22.0-35.0); MEAN CELL VOLUME 80.4 fl (80.0-105.0); MEAN CORPUSCULAR HEMOGLOBIN 26.8 pg (25.0-35.0); MEAN CORPUSCULAR HGB CONC 33.3 g/dl (31.0-37.0); MEAN PLATELET VOLUME 11.2 fl (7.0-11.0); MONO # 1.3 (0.1-0.6); MONO % 6.2 % (1.0-6.0); RBC 3.17 10^6/uL (3.5-6.1); RED CELL DISTRIBUTION WIDTH 17.6 % (11.5-14.5); WHITE BLOOD COUNT 21.5 10^3/ul (4.5-11.0)
[2017-09-13 06:55] LABS: ALB/GLOB RATIO 0.9 (1.1-1.8); ALBUMIN 2.5 g/dL (3.0-4.8)
--- NOTE | 2017-09-13 08:06 | PN ---
DATE: 09/12/2017 SUBJECTIVE: Patient is 72-year-old female. Patient was seen and examined at the bedside on 09/12/2017, looking comfortable. She is unresponsive, on ventilator, off sedation, and not much ET tube secretions. No nausea or vomiting. No hematuria or hematochezia. Has swelling of the extremities. No fever. No chills. REVIEW OF SYSTEMS: The patient is unresponsive on ventilator, cannot do review of systems. PHYSICAL EXAMINATION: VITAL SIGNS: Heart rate 73, respiratory rate 20, blood pressure 148/73, pulse oximetry 96% on room air. HEENT: Head normocephalic, atraumatic. Eyes closed. Mucous membrane moist. NECK: Supple. HEART: S1 and S2 positive. LUNGS: Have scattered rhonchi. ABDOMEN: Soft, nondistended. Bowel sounds positive. EXTREMITIES: Have edema of the lower extremities. NEUROLOGICAL: Largely unresponsive. Cannot do complete neurological examination. MEDICATIONS: Aspirin, heparin, meropenem, nystatin, Protonix, Solu-Cortef. LABORATORY DATA: Hemoglobin 8.7, hematocrit 26.6, white blood cells 24,000, platelets 101. Sodium 148, potassium 4.1. AST 98, ALT 43. MRI of the brain and chest x-ray are reviewed by me. ASSESSMENT AND PLAN: Ms. Tamy Abbott is a 72-year-old lady, status post cardiopulmonary arrest, hypoxic, encephalopathy. Discussion done with Dr. Terry. History of dementia, hypertension, osteomyelitis of the foot, diabetes mellitus, peripheral vascular disease, history of heel ulcers, history of vascular insufficiency, history of urinary tract infection, has had multiple hospitalizations. Paula Guadarrama is working on DNR/DNI and palliative care. Titrating FiO2 to pulse oximetry 94% above. Keep head elevated. Antibiotics as per Infectious Disease. Tapering off Solu-Cortef. Repeat labs. Overall prognosis is poor. Gastrointestinal, deep venous thrombosis prophylaxis. We will follow up. Deisy Gilman MD [facility]
--- NOTE | 2017-09-13 09:11 | CP.PCM.PN ---
<Mariya Luciano - Last Filed: 09/13/17 13:07> Subjective - Date & Time of Evaluation Date of Evaluation: 09/13/17 Time of Evaluation: 07:45 - Subjective Subjective: PGY-1 Nephrology Progress Note for Dr. Cosby's service Patient seen and examined in ICU. Patient intubated and unable to provide responses. Patient lacks corneal and gag reflex. Patient is making minimal urine output about 50ml in urban bag. Patient non responsive to painful stimuli. Objective - Vital Signs/Intake and Output Vital Signs (last 24 hours): Temp Pulse Resp BP Pulse Ox 95.7 F L 73 10 L 143/71 91 L 09/13/17 08:00 09/13/17 08:00 09/12/17 07:38 09/13/17 08:00 09/13/17 08:00 Intake and Output: 09/13/17 09/13/17 06:59 18:59 Intake Total 380 Output Total 3 Balance 377 - Medications Medications: Current Medications Aspirin (Aspirin Chewable) 81 mg PO DAILY [facility] Last Admin: 09/12/17 11:30 Dose: 81 mg Heparin Sodium (Porcine) (Heparin) 5,000 units SC Q12 NIDHI PRN Reason: Protocol Last Admin: 09/12/17 21:26 Dose: 5,000 units Hydrocortisone Sodium Succinate (Solu-Cortef) 50 mg IVP Q12 NIDHI Last Admin: 09/12/17 21:25 Dose: 50 mg Meropenem 500 mg/ Sodium (Chloride) 50 mls @ 100 mls/hr IVPB Q12 NIDHI PRN Reason: Protocol Stop: 09/18/17 22:01 Last Admin: 09/12/17 21:27 Dose: 100 mls/hr Insulin Human Regular (Humulin R Med) 0 units SC Q6 NIDHI PRN Reason: Protocol Last Admin: 09/13/17 06:00 Dose: 388 units Nystatin (Nystop Topical Powder) 0 gm TOP Q8 PRN PRN Reason: Itching / Pruritus Last Admin: 09/11/17 12:37 Dose: 1 applic Pantoprazole Sodium (Protonix Inj) 40 mg IVP DAILY [facility] Last Admin: 09/12/17 09:15 Dose: 40 mg - Labs Labs: 09/13/17 05:45 09/13/17 05:45 PT 14.5 SECONDS (9.4-12.5) H 09/10/17 06:00 INR 1.26 (0.93-1.08) H 09/10/17 06:00 APTT 31.2 Seconds (25.1-36.5) 09/10/17 06:00 - Additional Findings Additional findings: Additional Findings Additional findings: - Head Exam Head Exam: ATRAUMATIC, NORMAL INSPECTION, NORMOCEPHALIC - Eye Exam Additional comments: Fixed without reaction to light - ENT Exam Additional comments: ET tube in place - Respiratory Exam Respiratory Exam: Clear to Ausculation Bilateral, NORMAL BREATHING PATTERN - Cardiovascular Exam Cardiovascular Exam: REGULAR RHYTHM, +S1, +S2 - GI/Abdominal Exam GI & Abdominal Exam: Soft, Normal Bowel Sounds - Exam : Urban inserted with 50ml output - Extremities Exam Extremities Exam: +2 pitting edema b/l - Neurological Exam Additional comments: GCS 3 Absent gag, cough, corneal reflex Pupils fixed non reactive to light No spontaneous movement of extremities noted on exam Assessment and Plan - Assessment and Plan (Free Text) Assessment: Patient is a 72 y.o. female whose past medical history includes hypertension, hyperlipidemia, Type 2 diabetes mellitus, hypothyroidism, and dementia, who presents to the Emergency department transferred from [facility] brought in by EMS status post cardiac arrest. EMS achieved ROSC before arrival to ED, however patient coded again in ED and required CPR/ACLS protocol. Patient is currently intubated with imaging showing cerebral edema. Nephrology consulted for elevated Creatinine levels from baseline. Plan: Acute Renal Failure -Cr 3.8; On admission was 1.8; Baseline is 1.3 -BUN trending up; BUN 91 -Relatively stable Electrolyte status; no need for emergent dialysis -Metabolic acidosis improving; Patient only requiring 50% FIO2 to maintain adequate oxygen saturation -Patient anuric; Clinically consistent in setting of cardiac arrest and sepsis; 50 ml of urine collected in Urban bag; -Patient has no neurologic response with poor overall prognosis -D/C vanc due to elevated trough levels and nephrotoxic; Currently on meropenem -IVF dc'ed -CT shows anoxic brain injury and possible strokes; -Possible organ donor; will consider HD if necessary -Monitor electrolytes and BUN/Cr -Awaiting Neuro/Palliative for further recommendations due to patient's possible poor prognosis Hypernatremia (Resolved) -Na 148; Improved after fluids -Fluids dc'ed as patient is volume overloaded -Patient sodium should stay stable as they are not able to make urine Metabolic Acidosis (Resolved) -per ABG ; pH 7.31; Acidosis improving with oxygen delivery increased to 50 FIO2 -Avoid sodium bicarb as this will add to volume overload Sepsis -Continue Meropenem; WBC 21.4; WBC Trending Down; Podiatry following -Avoid Vanc as levels are high and it is nephrotoxic; -Vanc trough 17.8 <Reza Cosby - Last Filed: 09/14/17 06:57> Objective - Vital Signs/Intake and Output Vital Signs (last 24 hours): Temp Pulse Resp BP Pulse Ox 99.7 F H 86 10 L 150/70 98 09/14/17 01:10 09/14/17 02:00 09/12/17 07:38 09/14/17 01:00 09/14/17 01:10 Intake and Output: 09/13/17 09/14/17 18:59 06:59 Intake Total 740 Output Total 90 Balance 650 - Medications Medications: Current Medications Aspirin (Aspirin Chewable) 81 mg PO DAILY [facility] Last Admin: 09/13/17 09:48 Dose: 81 mg Heparin Sodium (Porcine) (Heparin) 5,000 units SC Q12 NIDHI PRN Reason: Protocol Last Admin: 09/14/17 00:18 Dose: 5,000 units Hydrocortisone Sodium Succinate (Solu-Cortef) 50 mg IVP DAILY [facility] Last Admin: 09/13/17 09:48 Dose: 50 mg Meropenem 500 mg/ Sodium (Chloride) 50 mls @ 100 mls/hr IVPB Q12 NIDHI PRN Reason: Protocol Stop: 09/18/17 22:01 Last Admin: 09/14/17 00:18 Dose: 100 mls/hr Insulin Detemir (Levemir) 15 unit SC HS [facility] Last Admin: 09/14/17 00:18 Dose: 15 units Insulin Human Regular (Humulin R Med) 0 units SC Q6 NIDHI PRN Reason: Protocol Last Admin: 09/14/17 05:46 Dose: Not Given Nystatin (Nystop Topical Powder) 0 gm TOP Q8 PRN PRN Reason: Itching / Pruritus Last Admin: 09/11/17 12:37 Dose: 1 applic Pantoprazole Sodium (Protonix Inj) 40 mg IVP DAILY [facility] Last Admin: 09/13/17 09:48 Dose: 40 mg - Labs Labs: 09/13/17 05:45 09/13/17 05:45 PT 14.5 SECONDS (9.4-12.5) H 09/10/17 06:00 INR 1.26 (0.93-1.08) H 09/10/17 06:00 APTT 31.2 Seconds (25.1-36.5) 09/10/17 06:00 Attending/Attestation - Attestation I have personally seen and examined this patient.: Yes I have fully participated in the care of the patient.: Yes I have reviewed all pertinent clinical information, including history, physical exam and plan: Yes Notes (Text): Patient seen and examined; I agree with the resident's note as above with the following additions/edits: Patient admitted s/p cardiac arrest, with severe sepsis, acute renal failure; Volume status appears stable overall with patient only on 50% FIO2; moderate metabolic acidosis, otherwise stable electrolyte status; oligo-anuric renal failure, clinically consistent with ATN due to cardiac arrest and sepsis; no urgent indication to initiate RN TELEMETRY at this time; Poor neuro prognosis but still awaiting further assessment; HD would be futile if there is no chance for meaningful neurologic recovery; -avoid volume excess with anuric patient; -no need to correct hypernatremia any further (can worsen cerebral edema); -maintain adequate glycemic control; -check vanco random level if re-dosing vanco; otherwise, meropenem dosed correctly for CrCl < 10; consider anti-fungal with yolanda pyuria seen; We will continue to f/u closely.
--- NOTE | 2017-09-13 09:19 | CP.PCM.CON ---
History of Present Illness - History of Present Illness History of Present Illness: Palliative consult requested by Dr Juan Ramon Gilman Reason: Goals of care 72 year old female with history of HTN,anemia,DM, dementia who was found unresponsive while at [facility] on 09/09/17. She was apniec/pulseless.BLS> ACLS> ROSC. [place] [facility] [place] she again became pulseless> CPR X 2 round> ROSC. She is seen in the ICU, intubated ,not sedated, no gag or pupillary reflex.Ct of headshowe anoxic brain injury. CT of chest/abdomen showed distended gall bladder, milk of calcium within gall bladder , small bowel wall thickening enteritis vs ischemia, anasarca. MRI of the brain pending PMHx: dementia, HTN, DM,hypothyroidism ,sacral decubiti,anxiety, falls. 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 Advance Care Planning:She does not have an Advanced Directive Review of Systems:Intubated/unresponsive,unable to obtain. Vital Signs:T 95.5, P 79, BP 160/80, 02 sat 97 Labs: Wbc 24.4, Hgb 8.7, Plt 101,, Na 149, K 4.1, Bun 75,Creat 3.3, Glucose 395, Calcium 7.1, As t98, Alt 43 Past Patient History - Infectious Disease Hx of Infectious Diseases: None - Past Medical History & Family History Past Medical History?: Yes - Past Social History Smoking Status: Former Smoker - CARDIAC Hx Cardiac Disorders: Yes Hx Hypertension: Yes - PULMONARY Hx Respiratory Disorders: No - NEUROLOGICAL Hx Neurological Disorder: Yes Hx Dementia: Yes Hx Dizziness: Yes Other/Comment: syncope - HEENT Hx HEENT Problems: No - RENAL Hx Chronic Kidney Disease: No - ENDOCRINE/METABOLIC Hx Diabetes Mellitus Type 2: Yes Hx Hypothyroidism: Yes - HEMATOLOGICAL/ONCOLOGICAL Hx Cancer: No - INTEGUMENTARY Hx Dermatological Problems: Yes - MUSCULOSKELETAL/RHEUMATOLOGICAL Hx Musculoskeletal Disorders: Yes Hx Back Pain: Yes Hx Falls: Yes Hx Osteoarthritis: Yes - GASTROINTESTINAL Hx Gastrointestinal Disorders: No - GENITOURINARY/GYNECOLOGICAL Hx Genitourinary Disorders: Yes Hx Hematuria: Yes Hx Incontinence: Yes Hx Urinary Tract Infection: Yes - PSYCHIATRIC Hx Psychophysiologic Disorder: Yes Hx Anxiety: Yes Hx Substance Use: No - SURGICAL HISTORY Hx Mastectomy: No - ANESTHESIA Hx Anesthesia Reactions: No Hx Malignant Hyperthermia: No Meds Allergies/Adverse Reactions: Allergies Allergy/AdvReac Type Severity Reaction Status Date / Time nifedipine AdvReac Severe hypotension, Verified 07/29/17 19:31 bradycardia, CHF - Medications Medications: Current Medications Aspirin (Aspirin Chewable) 81 mg PO DAILY [facility] Last Admin: 09/12/17 11:30 Dose: 81 mg Heparin Sodium (Porcine) (Heparin) 5,000 units SC Q12 [facility] PRN Reason: Protocol Last Admin: 09/12/17 21:26 Dose: 5,000 units Hydrocortisone Sodium Succinate (Solu-Cortef) 50 mg IVP Q12 [facility] Last Admin: 09/12/17 21:25 Dose: 50 mg Meropenem 500 mg/ Sodium (Chloride) 50 mls @ 100 mls/hr IVPB Q12 [facility] PRN Reason: Protocol Stop: 09/18/17 22:01 Last Admin: 09/12/17 21:27 Dose: 100 mls/hr Insulin Human Regular (Humulin R Med) 0 units SC Q6 NIDHI PRN Reason: Protocol Last Admin: 09/13/17 06:00 Dose: 388 units Nystatin (Nystop Topical Powder) 0 gm TOP Q8 PRN PRN Reason: Itching / Pruritus Last Admin: 09/11/17 12:37 Dose: 1 applic Pantoprazole Sodium (Protonix Inj) 40 mg IVP DAILY [facility] Last Admin: 09/12/17 09:15 Dose: 40 mg Physical Exam - Constitutional Appears: Chronically Ill - Head Exam Head Exam: NORMOCEPHALIC - Eye Exam Pupil Exam: Fixed - ENT Exam ENT Exam: Mucous Membranes Moist - Respiratory Exam Respiratory Exam: Decreased Breath Sounds - Cardiovascular Exam Cardiovascular Exam: REGULAR RHYTHM, +S1, +S2 - GI/Abdominal Exam GI & Abdominal Exam: Hypoactive Bowel Sounds, Soft - Exam Additional comments: oliguria - Extremities Exam Additional comments: decreased pedal pulses - Neurological Exam Additional comments: unresponsive - Skin Skin Exam: Dry, Pallor - Additional Findings Additional findings: Palliative performance scale rating 10% Results - Vital Signs Recent Vital Signs: Last Vital Signs Temp 95.7 F L 09/13/17 08:00 Pulse 73 09/13/17 08:00 Resp 10 L 09/12/17 07:38 BP 143/71 09/13/17 08:00 Pulse Ox 91 L 09/13/17 08:00 - Labs Result Diagrams: 09/13/17 05:45 09/13/17 05:45 Labs: Laboratory Results - last 24 hr 09/12/17 09/12/17 09/12/17 09:00 11:57 11:59 WBC RBC Hgb Hct MCV MCH MCHC RDW Plt Count MPV Gran % Lymph % (Auto) [place] % (Auto) Eos % (Auto) Baso % (Auto) Gran # Lymph # (Auto) [place] # (Auto) Eos # (Auto) Baso # (Auto) Sodium Potassium Chloride Carbon Dioxide Anion Gap BUN Creatinine Est GFR ( Amer) Est GFR (Non-Af Amer) POC Glucose (mg/dL) 433 H* 370 H Random Glucose Calcium Phosphorus Magnesium Total Bilirubin AST ALT Alkaline Phosphatase Total Protein Albumin Globulin Albumin/Globulin Ratio Vancomycin Trough 17.8 H* 09/12/17 09/12/17 09/13/17 18:35 23:53 05:40 WBC RBC Hgb Hct MCV MCH MCHC RDW Plt Count MPV Gran % Lymph % (Auto) [place] % (Auto) Eos % (Auto) Baso % (Auto) Gran # Lymph # (Auto) [place] # (Auto) Eos # (Auto) Baso # (Auto) Sodium Potassium Chloride Carbon Dioxide Anion Gap BUN Creatinine Est GFR ( Amer) Est GFR (Non-Af Amer) POC Glucose (mg/dL) 397 H 376 H 388 H Random Glucose Calcium Phosphorus Magnesium Total Bilirubin AST ALT Alkaline Phosphatase Total Protein Albumin Globulin Albumin/Globulin Ratio Vancomycin Trough 09/13/17 09/13/17 05:45 05:45 WBC 21.5 H RBC 3.17 L Hgb 8.5 L Hct 25.5 L MCV 80.4 MCH 26.8 MCHC 33.3 RDW 17.6 H Plt Count 89 L MPV 11.2 H Gran % 88.6 H Lymph % (Auto) 5.2 L [place] % (Auto) 6.2 H Eos % (Auto) 0.0 L Baso % (Auto) 0.0 Gran # 19.04 H Lymph # (Auto) 1.1 L [place] # (Auto) 1.3 H Eos # (Auto) 0.0 Baso # (Auto) 0.01 Sodium 146 Potassium 4.2 Chloride 114 H Carbon Dioxide 18 L Anion Gap 18 BUN 91 H Creatinine 3.8 H Est GFR ( Amer) 14 Est GFR (Non-Af Amer) 12 POC Glucose (mg/dL) Random Glucose 354 H* Calcium 8.0 L Phosphorus 4.4 Magnesium 2.0 Total Bilirubin 0.4 AST 45 H D ALT 25 Alkaline Phosphatase 99 Total Protein 5.2 L Albumin 2.5 L Globulin 2.7 Albumin/Globulin Ratio 0.9 L Vancomycin Trough Assessment & Plan - Assessment and Plan (Free Text) Assessment: 72 year old female with hsitoy of HTN, DM,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 She is intubated, not breathing over vent. She is not sedated. She has no gag or pupillary response, she does not react to painful stimuli. GCS 3. Patients son Josh at bedside.Palliative services introduced as support system for family. Son expressed that he can't understand how this all happened. Son aware that brain injury has occurred explained that this was due to period of time she was pulses/apneic. Son states that he is hoping his mother can recover from this incident. Informed him that medical team is providing aggressive supportive care. I explained that despite these efforts, his mother may not recover both physically and mentally. I explained that she may never recover normal brain function and that she may remain dependant on life support. When asked if she had an Advance Directive, he replied that she did not. He stated that there is no POA but both he and his sister will make medical decisions for his mother. He inferred that he knows his mother would not want her life prolonged by machines. He wants to give things more time to see if she will improve. Psychosocial support provider. Spiritual support offered. Time spent with family in goals of care decision, 30 minutes Plan: Pulmonary: Vent support, maintain 02 at > 90% Neurology: CT showed anoxic brain injury,Await MRI of brain. head of bed at 30d egress Endocrine: Levemer, insulin, Maintain euglycemia, monitor labs Sepsis: Continue antibiotics, ruiz cultures Palliative support in establishing gaols of care
--- NOTE | 2017-09-13 09:23 | CP.CCUPN ---
<Donn Rocha - Last Filed: 09/13/17 09:49> CCU Subjective - Physician Review Subjective (Free Text): Donn Rocha, PGY1 ICU Critical Care Progress Note for Dr. Galdamez Patient was seen and examined at bedside this morning. Patient is intubated and currently on Low Tidal Volume Ventilation. ROS not obtained due to intubation. Patient has anuria, urban has drained 33 cc within the past 24 hours. Patient has a history of ESBL and is still currently contact precaution. Will maintain femoral TLC line for laboratory blood draws since patient has anasarca. CCU Objective - Vital Signs / Intake & Output Vital Signs (Last 4 hours): Vital Signs Temp Pulse BP Pulse Ox 09/13/17 08:00 95.7 F L 73 143/71 91 L 09/13/17 07:50 95.7 F L 73 91 L 09/13/17 07:40 95.7 F L 72 90 L 09/13/17 07:30 95.7 F L 72 90 L 09/13/17 07:20 95.7 F L 74 91 L 09/13/17 07:10 95.9 F L 72 94 L 09/13/17 07:00 95.9 F L 72 143/70 95 09/13/17 06:50 95.9 F L 72 100 09/13/17 06:40 96.1 F L 77 92 L 09/13/17 06:30 96.3 F L 73 93 L 09/13/17 06:20 96.3 F L 73 93 L 09/13/17 06:12 96.3 F L 09/13/17 06:11 96.3 F L 09/13/17 06:10 96.3 F L 09/13/17 06:00 96.1 F L 74 153/65 H 97 09/13/17 05:50 95.9 F L 73 98 09/13/17 05:40 95.7 F L 72 97 09/13/17 05:30 95.5 F L 72 97 09/13/17 05:29 74 09/13/17 05:20 95.4 F L 71 97 09/13/17 05:10 95.4 F L 71 97 Intake and Output (Last 8hrs): Intake & Output 07/09/18 07/10/18 07/10/18 22:59 06:59 14:59 Intake Total 1200 380 Output Total 30 3 Balance 1170 377 Weight 211 lb 2 oz Intake: IV 560 100 Femoral 560 100 Tube Feeding 640 180 Albumin 100 Output: Urine 30 3 Urethral (Urban) 30 3 Other: # Bowel Movements 1 1 - Physical Exam Head: Positive for: Atraumatic, Normocephalic Pupils: Positive for: Non-Reactive, Other (dilated, +3 pupils both sides) Conjunctiva: Positive for: Normal Mouth: Positive for: Moist Mucous Membranes, Other (intubated) Nose (External): Positive for: Other (NG tube in place) Respiratory/Chest: Positive for: Other (Coarse breath sound bilaterally). Negative for: Wheezes, Rales, Rhonchi Cardiovascular: Positive for: Regular Rate and Rhythm, Normal S1, S2. Negative for: Murmurs Abdomen: Positive for: Normal Bowel Sounds, Feeding Tubes, Other (Obese) Genitourinary/Pelvic Exam: Positive for: Other (Urban in place) Back: Positive for: Normal Inspection Upper Extremity: Positive for: Normal Inspection. Negative for: Cyanosis, Edema Lower Extremity: Positive for: Edema (+3 Pitting edema), Other (L foot dressed by Dr. Anderson for diabetic ulcer) Neurological: Positive for: Other (Unresponsive) Skin: Positive for: Dry, Other (Anasarca ). Negative for: Warm (Upper and lower extremities cool to touch), Rashes - Medications Active Medications: Active Medications Generic Name Dose Route Start Last Admin Trade Name Freq PRN Reason Stop Dose Admin Aspirin 81 mg 09/12/17 10:00 09/12/17 11:30 Aspirin Chewable PO 81 mg DAILY NIDHI Administration Heparin Sodium (Porcine) 5,000 units 09/09/17 22:00 09/12/17 21:26 Heparin SC 5,000 units Q12 NIDHI Administration Protocol Hydrocortisone Sodium Succinate 50 mg 09/12/17 10:00 09/12/17 21:25 Solu-Cortef IVP 50 mg Q12 NIDHI Administration Meropenem 500 mg/ Sodium 50 mls @ 100 mls/hr 09/09/17 22:00 09/12/17 21:27 Chloride IVPB 09/18/17 22:01 100 mls/hr Q12 NIDHI Administration Protocol Insulin Human Regular 0 units 09/09/17 12:00 09/13/17 06:00 Humulin R Med SC 388 units Q6 NIDHI Administration Protocol Nystatin 0 gm 09/09/17 13:29 09/11/17 12:37 Nystop Topical Powder TOP 1 applic Q8 PRN Administration Itching / Pruritus Pantoprazole Sodium 40 mg 09/09/17 10:00 09/12/17 09:15 Protonix Inj IVP 40 mg DAILY NIDHI Administration - Patient Studies Lab Studies: Microbiology Studies 09/09/17 06:30 Blood Culture - Preliminary Blood NO GROWTH AFTER 4 DAYS 09/09/17 06:30 Blood Culture - Preliminary Blood NO GROWTH AFTER 4 DAYS Lab Studies 09/13/17 09/13/17 09/13/17 Range/Units 05:45 05:45 05:40 WBC 21.5 H (4.5-11.0) 10^3/ul RBC 3.17 L (3.5-6.1) 10^6/uL Hgb 8.5 L (12.0-16.0) g/dL Hct 25.5 L (36.0-48.0) % MCV 80.4 (80.0-105.0) fl MCH 26.8 (25.0-35.0) pg MCHC 33.3 (31.0-37.0) g/dl RDW 17.6 H (11.5-14.5) % Plt Count 89 L (120.0-450.0) 10^3/uL MPV 11.2 H (7.0-11.0) fl Gran % 88.6 H (50.0-68.0) % Lymph % (Auto) 5.2 L (22.0-35.0) % Gregory % (Auto) 6.2 H (1.0-6.0) % Eos % (Auto) 0.0 L (1.5-5.0) % Baso % (Auto) 0.0 (0.0-3.0) % Gran # 19.04 H (1.4-6.5) Lymph # (Auto) 1.1 L (1.2-3.4) Gregory # (Auto) 1.3 H (0.1-0.6) Eos # (Auto) 0.0 (0.0-0.7) Baso # (Auto) 0.01 (0.0-2.0) K/mm3 Sodium 146 (132-148) mmol/L Potassium 4.2 (3.6-5.0) mmol/L Chloride 114 H (98-107) mmol/L Carbon Dioxide 18 L (21-33) mmol/L Anion Gap 18 (10-20) BUN 91 H (7-21) mg/dL Creatinine 3.8 H (0.7-1.2) mg/dl Est GFR ( Amer) 14 Est GFR (Non-Af Amer) 12 POC Glucose (mg/dL) 388 H (65-110) mg/dL Random Glucose 354 H* (70-110) mg/dL Calcium 8.0 L (8.4-10.5) mg/dL Phosphorus 4.4 (2.5-4.5) mg/dL Magnesium 2.0 (1.7-2.2) mg/dL Total Bilirubin 0.4 (0.2-1.3) mg/dL AST 45 H D (14-36) U/L ALT 25 (7-56) U/L Alkaline Phosphatase 99 (38-126) U/L Total Protein 5.2 L (5.8-8.3) g/dL Albumin 2.5 L (3.0-4.8) g/dL Globulin 2.7 gm/dL Albumin/Globulin Ratio 0.9 L (1.1-1.8) Vancomycin Trough (5.0-10.0) ug/mL 09/12/17 09/12/17 09/12/17 Range/Units 23:53 18:35 11:59 WBC (4.5-11.0) 10^3/ul RBC (3.5-6.1) 10^6/uL Hgb (12.0-16.0) g/dL Hct (36.0-48.0) % MCV (80.0-105.0) fl MCH (25.0-35.0) pg MCHC (31.0-37.0) g/dl RDW (11.5-14.5) % Plt Count (120.0-450.0) 10^3/uL MPV (7.0-11.0) fl Gran % (50.0-68.0) % Lymph % (Auto) (22.0-35.0) % Gregory % (Auto) (1.0-6.0) % Eos % (Auto) (1.5-5.0) % Baso % (Auto) (0.0-3.0) % Gran # (1.4-6.5) Lymph # (Auto) (1.2-3.4) Gregory # (Auto) (0.1-0.6) Eos # (Auto) (0.0-0.7) Baso # (Auto) (0.0-2.0) K/mm3 Sodium (132-148) mmol/L Potassium (3.6-5.0) mmol/L Chloride (98-107) mmol/L Carbon Dioxide (21-33) mmol/L Anion Gap (10-20) BUN (7-21) mg/dL Creatinine (0.7-1.2) mg/dl Est GFR ( Amer) Est GFR (Non-Af Amer) POC Glucose (mg/dL) 376 H 397 H 370 H (65-110) mg/dL Random Glucose (70-110) mg/dL Calcium (8.4-10.5) mg/dL Phosphorus (2.5-4.5) mg/dL Magnesium (1.7-2.2) mg/dL Total Bilirubin (0.2-1.3) mg/dL AST (14-36) U/L ALT (7-56) U/L Alkaline Phosphatase (38-126) U/L Total Protein (5.8-8.3) g/dL Albumin (3.0-4.8) g/dL Globulin gm/dL Albumin/Globulin Ratio (1.1-1.8) Vancomycin Trough (5.0-10.0) ug/mL 09/12/17 09/12/17 Range/Units 11:57 09:00 WBC (4.5-11.0) 10^3/ul RBC (3.5-6.1) 10^6/uL Hgb (12.0-16.0) g/dL Hct (36.0-48.0) % MCV (80.0-105.0) fl MCH (25.0-35.0) pg MCHC (31.0-37.0) g/dl RDW (11.5-14.5) % Plt Count (120.0-450.0) 10^3/uL MPV (7.0-11.0) fl Gran % (50.0-68.0) % Lymph % (Auto) (22.0-35.0) % Gregory % (Auto) (1.0-6.0) % Eos % (Auto) (1.5-5.0) % Baso % (Auto) (0.0-3.0) % Gran # (1.4-6.5) Lymph # (Auto) (1.2-3.4) Gregory # (Auto) (0.1-0.6) Eos # (Auto) (0.0-0.7) Baso # (Auto) (0.0-2.0) K/mm3 Sodium (132-148) mmol/L Potassium (3.6-5.0) mmol/L Chloride (98-107) mmol/L Carbon Dioxide (21-33) mmol/L Anion Gap (10-20) BUN (7-21) mg/dL Creatinine (0.7-1.2) mg/dl Est GFR ( Amer) Est GFR (Non-Af Amer) POC Glucose (mg/dL) 433 H* (65-110) mg/dL Random Glucose (70-110) mg/dL Calcium (8.4-10.5) mg/dL Phosphorus (2.5-4.5) mg/dL Magnesium (1.7-2.2) mg/dL Total Bilirubin (0.2-1.3) mg/dL AST (14-36) U/L ALT (7-56) U/L Alkaline Phosphatase (38-126) U/L Total Protein (5.8-8.3) g/dL Albumin (3.0-4.8) g/dL Globulin gm/dL Albumin/Globulin Ratio (1.1-1.8) Vancomycin Trough 17.8 H* (5.0-10.0) ug/mL Laboratory Results - last 24 hr 09/12/17 09/12/17 09/12/17 09:00 11:57 11:59 WBC RBC Hgb Hct MCV MCH MCHC RDW Plt Count MPV Gran % Lymph % (Auto) Gregory % (Auto) Eos % (Auto) Baso % (Auto) Gran # Lymph # (Auto) Gregory # (Auto) Eos # (Auto) Baso # (Auto) Sodium Potassium Chloride Carbon Dioxide Anion Gap BUN Creatinine Est GFR ( Amer) Est GFR (Non-Af Amer) POC Glucose (mg/dL) 433 H* 370 H Random Glucose Calcium Phosphorus Magnesium Total Bilirubin AST ALT Alkaline Phosphatase Total Protein Albumin Globulin Albumin/Globulin Ratio Vancomycin Trough 17.8 H* 09/12/17 09/12/17 09/13/17 18:35 23:53 05:40 WBC RBC Hgb Hct MCV MCH MCHC RDW Plt Count MPV Gran % Lymph % (Auto) Gregory % (Auto) Eos % (Auto) Baso % (Auto) Gran # Lymph # (Auto) Gregory # (Auto) Eos # (Auto) Baso # (Auto) Sodium Potassium Chloride Carbon Dioxide Anion Gap BUN Creatinine Est GFR ( Amer) Est GFR (Non-Af Amer) POC Glucose (mg/dL) 397 H 376 H 388 H Random Glucose Calcium Phosphorus Magnesium Total Bilirubin AST ALT Alkaline Phosphatase Total Protein Albumin Globulin Albumin/Globulin Ratio Vancomycin Trough 09/13/17 09/13/17 05:45 05:45 WBC 21.5 H RBC 3.17 L Hgb 8.5 L Hct 25.5 L MCV 80.4 MCH 26.8 MCHC 33.3 RDW 17.6 H Plt Count 89 L MPV 11.2 H Gran % 88.6 H Lymph % (Auto) 5.2 L Gregory % (Auto) 6.2 H Eos % (Auto) 0.0 L Baso % (Auto) 0.0 Gran # 19.04 H Lymph # (Auto) 1.1 L Gregory # (Auto) 1.3 H Eos # (Auto) 0.0 Baso # (Auto) 0.01 Sodium 146 Potassium 4.2 Chloride 114 H Carbon Dioxide 18 L Anion Gap 18 BUN 91 H Creatinine 3.8 H Est GFR ( Amer) 14 Est GFR (Non-Af Amer) 12 POC Glucose (mg/dL) Random Glucose 354 H* Calcium 8.0 L Phosphorus 4.4 Magnesium 2.0 Total Bilirubin 0.4 AST 45 H D ALT 25 Alkaline Phosphatase 99 Total Protein 5.2 L Albumin 2.5 L Globulin 2.7 Albumin/Globulin Ratio 0.9 L Vancomycin Trough Fingerstick Blood Sugar Results: 388 Review of Systems - Review of Systems Systems not reviewed;Unavailable: Intubated Critical Care Progress Note - Ventilator Checklist Head of Bed 30 Degrees: Yes Daily Sedation Vacation: Yes Daily Assessment of Readiness to Wean: Yes Daily Spontaneous Breathing Trial: Yes PUD Prophalyxis: Yes DVT Prophylaxis: Yes Oral Care with Chlorhexidine Gluconate {CHG}: Yes - Vent Settings MODE:: PRVC TIDAL VOLUME:: 380 RESP RATE:: 25 FIO2:: 50 PEEP:: 7 - Extremities/Vascular Does the Patient have a Central Venous Catheter?: Yes Insertion Site: Femoral Vein Does the Patient need a Central Venous Catheter?: Yes Does the Patient have a Urban Catheter?: Yes Does the Patient need a Urban Catheter?: Yes Catheter Insertion Criteria: Need for accurate measurement of output in critically ill patient - Prophylaxis GI Prophylaxis GI: PPI - Prophylaxis DVT Prophylaxis DVT: Heparin SQ - Nutrition Nutrition: Nutrition Category Date Time Status NPO Diet [DIET] Diets 09/09/17 Breakfast Ordered Assessment/Plan - Assessment and Plan (Free Text) Assessment: 72 y/o Female with a PMH of HTN, DM2, hypothyroidism, sacral decubitus, and recurrent falls who presents from residential after being found unresponsive (downtime unknown), with no pulses and in asystole. ACLS was intiated and ROSC obtained (please see ED notes and ICU consult note for further information). She was transferred to ICU for further management. Patient initially required pressors for BP support but is off now. Patient is intubated and being ventilated using a low tidal volume ventilation (LTVV) strategy for ARDS. Sedation and paralytic agents (Nimbex) were used but are off now. 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 ID is following. Cardiology is following for s/p cardiac arrest. As per family members, patient is DNR. Patient has anuria, however, nephrology does not recommend dialysis at this time. Patient still has Femoral TLC line for laboratory blood draws since patient has anasarca and insertion of peripheral line would be challenging. Patient is currently contact precaution due to history of ESBL. Overall, patient prognosis is poor. Palliative care is following. 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 Large left pleural effusion and small pericardial effusion. No vegetation or thrombus. - Taper steroids Pulm: - CT of chest showed extensive bilateral airspace disease with air bronchograms consistent with bilateral lobar pneumonia - ET tube in place - Continue low tidal volume ventilation with TV 380, RR 25, FiO2 50%, PEEP 7 - Urine Legionella and strep negative - Procol .10 - Continue IV antibiotics, ID is consulted, recs appreciated - Maintain head of Bed > 30, Daily oral care, suction prn, DVT and GI ppx GI: - CT abdomen/pelvis showed distended gallbladder, moderate small bowel thickening and anasarca - NPO - NGT: Patient is on tube feeds - GI ppx to prevent gastric ulcers Renal: - Anuria: low urban output < 50 cc/24 hours - Worsening renal function: trending upwards BUN/Cr - Urine culture: positive for yeast - Monitor electrolytes daily and replete as necessary - No plans for dialysis at this time, as per Nephrology : - History of ESBL - Maintain Contact Precautions ID - Downtrending WBC - ID is consulted, recs appreciated - Continue antibiotics per ID: [email or web address], day #5 - Vancomycin is given based on trough level by ID - Blood cultures negative x4 after 3 days - MRSA screen negative - Sputum culture negative - History of ESBL: maintain contact precautions, c/w antibiotics Heme - Leukocytosis is noted, with no bandemia - Anemia is noted but improved from prior visits - DVT PPX to prevent pulmonary embolism 2/2 immobility Endo - Hyperglycemia: started on Levemir and c/w ISS; taper steroids - Maintain euglycemia - ISS and Accuchecks Q6 - TSH elevated Dispo: continue ICU management. Continue with Low Tidal Volume Ventilation. Follow up with Palliative care. Case was reviewed and discussed with attending Physician Dr. Galdamez <Germain Galdamez - Last Filed: 09/13/17 10:55> CCU Objective - Vital Signs / Intake & Output Vital Signs (Last 4 hours): Vital Signs Temp Pulse BP Pulse Ox 09/13/17 08:00 95.7 F L 73 143/71 91 L 09/13/17 07:50 95.7 F L 73 91 L 09/13/17 07:40 95.7 F L 72 90 L 09/13/17 07:30 95.7 F L 72 90 L 09/13/17 07:20 95.7 F L 74 91 L 09/13/17 07:10 95.9 F L 72 94 L 09/13/17 07:00 95.9 F L 72 143/70 95 Intake and Output (Last 8hrs): Intake & Output 09/12/17 09/13/17 09/13/17 22:59 06:59 14:59 Intake Total 1200 380 Output Total 30 3 Balance 1170 377 Weight 211 lb 2 oz Intake: IV 560 100 Femoral 560 100 Tube Feeding 640 180 Albumin 100 Output: Urine 30 3 Urethral (Urban) 30 3 Other: # Bowel Movements 1 1 - Medications Active Medications: Active Medications Generic Name Dose Route Start Last Admin Trade Name Freq PRN Reason Stop Dose Admin Aspirin 81 mg 09/12/17 10:00 09/13/17 09:48 Aspirin Chewable PO 81 mg DAILY NIDHI Administration Heparin Sodium (Porcine) 5,000 units 09/09/17 22:00 09/13/17 09:47 Heparin SC 5,000 units Q12 NIDHI Administration Protocol Hydrocortisone Sodium Succinate 50 mg 09/13/17 10:00 09/13/17 09:48 Solu-Cortef IVP 50 mg DAILY NIDHI Administration Meropenem 500 mg/ Sodium 50 mls @ 100 mls/hr 09/09/17 22:00 09/13/17 09:52 Chloride IVPB 09/18/17 22:01 100 mls/hr Q12 NIDHI Administration Protocol Insulin Detemir 15 unit 09/13/17 22:00 Levemir SC HS NIDHI Insulin Human Regular 0 units 09/09/17 12:00 09/13/17 06:00 Humulin R Med SC 388 units Q6 NIDHI Administration Protocol Nystatin 0 gm 09/09/17 13:29 09/11/17 12:37 Nystop Topical Powder TOP 1 applic Q8 PRN Administration Itching / Pruritus Pantoprazole Sodium 40 mg 09/09/17 10:00 09/13/17 09:48 Protonix Inj IVP 40 mg DAILY NIDHI Administration - Patient Studies Lab Studies: Microbiology Studies 09/09/17 06:30 Blood Culture - Preliminary Blood NO GROWTH AFTER 4 DAYS 09/09/17 06:30 Blood Culture - Preliminary Blood NO GROWTH AFTER 4 DAYS Lab Studies 09/13/17 09/13/17 09/13/17 Range/Units 05:45 05:45 05:40 WBC 21.5 H (4.5-11.0) 10^3/ul RBC 3.17 L (3.5-6.1) 10^6/uL Hgb 8.5 L (12.0-16.0) g/dL Hct 25.5 L (36.0-48.0) % MCV 80.4 (80.0-105.0) fl MCH 26.8 (25.0-35.0) pg MCHC 33.3 (31.0-37.0) g/dl RDW 17.6 H (11.5-14.5) % Plt Count 89 L (120.0-450.0) 10^3/uL MPV 11.2 H (7.0-11.0) fl Gran % 88.6 H (50.0-68.0) % Lymph % (Auto) 5.2 L (22.0-35.0) % Gregory % (Auto) 6.2 H (1.0-6.0) % Eos % (Auto) 0.0 L (1.5-5.0) % Baso % (Auto) 0.0 (0.0-3.0) % Gran # 19.04 H (1.4-6.5) Lymph # (Auto) 1.1 L (1.2-3.4) Gregory # (Auto) 1.3 H (0.1-0.6) Eos # (Auto) 0.0 (0.0-0.7) Baso # (Auto) 0.01 (0.0-2.0) K/mm3 Sodium 146 (132-148) mmol/L Potassium 4.2 (3.6-5.0) mmol/L Chloride 114 H (98-107) mmol/L Carbon Dioxide 18 L (21-33) mmol/L Anion Gap 18 (10-20) BUN 91 H (7-21) mg/dL Creatinine 3.8 H (0.7-1.2) mg/dl Est GFR ( Amer) 14 Est GFR (Non-Af Amer) 12 POC Glucose (mg/dL) 388 H (65-110) mg/dL Random Glucose 354 H* (70-110) mg/dL Calcium 8.0 L (8.4-10.5) mg/dL Phosphorus 4.4 (2.5-4.5) mg/dL Magnesium 2.0 (1.7-2.2) mg/dL Total Bilirubin 0.4 (0.2-1.3) mg/dL AST 45 H D (14-36) U/L ALT 25 (7-56) U/L Alkaline Phosphatase 99 (38-126) U/L Total Protein 5.2 L (5.8-8.3) g/dL Albumin 2.5 L (3.0-4.8) g/dL Globulin 2.7 gm/dL Albumin/Globulin Ratio 0.9 L (1.1-1.8) 09/12/17 09/12/17 09/12/17 Range/Units 23:53 18:35 11:59 WBC (4.5-11.0) 10^3/ul RBC (3.5-6.1) 10^6/uL Hgb (12.0-16.0) g/dL Hct (36.0-48.0) % MCV (80.0-105.0) fl MCH (25.0-35.0) pg MCHC (31.0-37.0) g/dl RDW (11.5-14.5) % Plt Count (120.0-450.0) 10^3/uL MPV (7.0-11.0) fl Gran % (50.0-68.0) % Lymph % (Auto) (22.0-35.0) % Gregory % (Auto) (1.0-6.0) % Eos % (Auto) (1.5-5.0) % Baso % (Auto) (0.0-3.0) % Gran # (1.4-6.5) Lymph # (Auto) (1.2-3.4) Gregory # (Auto) (0.1-0.6) Eos # (Auto) (0.0-0.7) Baso # (Auto) (0.0-2.0) K/mm3 Sodium (132-148) mmol/L Potassium (3.6-5.0) mmol/L Chloride (98-107) mmol/L Carbon Dioxide (21-33) mmol/L Anion Gap (10-20) BUN (7-21) mg/dL Creatinine (0.7-1.2) mg/dl Est GFR ( Amer) Est GFR (Non-Af Amer) POC Glucose (mg/dL) 376 H 397 H 370 H (65-110) mg/dL Random Glucose (70-110) mg/dL Calcium (8.4-10.5) mg/dL Phosphorus (2.5-4.5) mg/dL Magnesium (1.7-2.2) mg/dL Total Bilirubin (0.2-1.3) mg/dL AST (14-36) U/L ALT (7-56) U/L Alkaline Phosphatase (38-126) U/L Total Protein (5.8-8.3) g/dL Albumin (3.0-4.8) g/dL Globulin gm/dL Albumin/Globulin Ratio (1.1-1.8) /11/22 Range/Units 11:57 WBC (4.5-11.0) 10^3/ul RBC (3.5-6.1) 10^6/uL Hgb (12.0-16.0) g/dL Hct (36.0-48.0) % MCV (80.0-105.0) fl MCH (25.0-35.0) pg MCHC (31.0-37.0) g/dl RDW (11.5-14.5) % Plt Count (120.0-450.0) 10^3/uL MPV (7.0-11.0) fl Gran % (50.0-68.0) % Lymph % (Auto) (22.0-35.0) % Gregory % (Auto) (1.0-6.0) % Eos % (Auto) (1.5-5.0) % Baso % (Auto) (0.0-3.0) % Gran # (1.4-6.5) Lymph # (Auto) (1.2-3.4) Gregory # (Auto) (0.1-0.6) Eos # (Auto) (0.0-0.7) Baso # (Auto) (0.0-2.0) K/mm3 Sodium (132-148) mmol/L Potassium (3.6-5.0) mmol/L Chloride (98-107) mmol/L Carbon Dioxide (21-33) mmol/L Anion Gap (10-20) BUN (7-21) mg/dL Creatinine (0.7-1.2) mg/dl Est GFR ( Amer) Est GFR (Non-Af Amer) POC Glucose (mg/dL) 433 H* (65-110) mg/dL Random Glucose (70-110) mg/dL Calcium (8.4-10.5) mg/dL Phosphorus (2.5-4.5) mg/dL Magnesium (1.7-2.2) mg/dL Total Bilirubin (0.2-1.3) mg/dL AST (14-36) U/L ALT (7-56) U/L Alkaline Phosphatase (38-126) U/L Total Protein (5.8-8.3) g/dL Albumin (3.0-4.8) g/dL Globulin gm/dL Albumin/Globulin Ratio (1.1-1.8) Laboratory Results - last 24 hr 09/12/17 09/12/17 09/12/17 11:57 11:59 18:35 WBC RBC Hgb Hct MCV MCH MCHC RDW Plt Count MPV Gran % Lymph % (Auto) Gregory % (Auto) Eos % (Auto) Baso % (Auto) Gran # Lymph # (Auto) Gregory # (Auto) Eos # (Auto) Baso # (Auto) Sodium Potassium Chloride Carbon Dioxide Anion Gap BUN Creatinine Est GFR ( Amer) Est GFR (Non-Af Amer) POC Glucose (mg/dL) 433 H* 370 H 397 H Random Glucose Calcium Phosphorus Magnesium Total Bilirubin AST ALT Alkaline Phosphatase Total Protein Albumin Globulin Albumin/Globulin Ratio 09/12/17 09/13/17 09/13/17 23:53 05:40 05:45 WBC 21.5 H RBC 3.17 L Hgb 8.5 L Hct 25.5 L MCV 80.4 MCH 26.8 MCHC 33.3 RDW 17.6 H Plt Count 89 L MPV 11.2 H Gran % 88.6 H Lymph % (Auto) 5.2 L Gregory % (Auto) 6.2 H Eos % (Auto) 0.0 L Baso % (Auto) 0.0 Gran # 19.04 H Lymph # (Auto) 1.1 L Gregory # (Auto) 1.3 H Eos # (Auto) 0.0 Baso # (Auto) 0.01 Sodium Potassium Chloride Carbon Dioxide Anion Gap BUN Creatinine Est GFR ( Amer) Est GFR (Non-Af Amer) POC Glucose (mg/dL) 376 H 388 H Random Glucose Calcium Phosphorus Magnesium Total Bilirubin AST ALT Alkaline Phosphatase Total Protein Albumin Globulin Albumin/Globulin Ratio 09/13/17 05:45 WBC RBC Hgb Hct MCV MCH MCHC RDW Plt Count MPV Gran % Lymph % (Auto) Gregory % (Auto) Eos % (Auto) Baso % (Auto) Gran # Lymph # (Auto) Gregory # (Auto) Eos # (Auto) Baso # (Auto) Sodium 146 Potassium 4.2 Chloride 114 H Carbon Dioxide 18 L Anion Gap 18 BUN 91 H Creatinine 3.8 H Est GFR ( Amer) 14 Est GFR (Non-Af Amer) 12 POC Glucose (mg/dL) Random Glucose 354 H* Calcium 8.0 L Phosphorus 4.4 Magnesium 2.0 Total Bilirubin 0.4 AST 45 H D ALT 25 Alkaline Phosphatase 99 Total Protein 5.2 L Albumin 2.5 L Globulin 2.7 Albumin/Globulin Ratio 0.9 L Critical Care Progress Note - Nutrition Nutrition: Nutrition Category Date Time Status NPO Diet [DIET] Diets 09/09/17 Breakfast Ordered Assessment/Plan - Assessment and Plan (Free Text) Plan: Patient seen and examined on rounds with resident, agree with note with following additions/exceptions: Patient is 72yo female with PMhx of dementia, Hypertension, DM2, hypothyroidism , sacral decubitus, recurrent falls, presented from NH s/p cardiac arrest, asystole, unknown downtime, intubated in the field, had another cardiac arrest in the hospital, asystole, ROSC obtained. Currently intubated, off sedation. Labs and imaging reviewed, shows diffuse bilateral infiltrates, ARDS resolved Pt remains OFF vasopressor support, stress dose steroids tapered On exam does not overbreath the ventilator, no gag reflex, no corneal reflexes present, may require brain flow scan, neurology following MRI brain done, shows diffuse anoxic brain injury Palliative care following, pt is DNR Overall prognosis is extremely poor. PNA ARDS, resolved Cardiac Arrest s/p ROSC Septic Shock, resolved Hypoxic resp failure Recommend: - cont with vent support, low tidal ventilation - broad spectrum abx, Vanco, Merrem, follow up ID - stress dose steroids taper - monitor HH - DC femoral TLC line - FS control - neurology follow up - monitor renal function, follow up renal - HOB 30 deg elevated - GI ppx - DVT ppx - follow up palliative care - Overall prognosis poor - Monitor in MICU
[2017-09-13] MEDS: Meropenem 500 MG in Sodium Chloride 0.9% 50 ML IVPB SCH (09:52)
--- NOTE | 2017-09-13 10:07 | PN ---
DATE: 09/13/2017 REASON FOR DICTATION: Cardiac evaluation status post cardiac arrest, intubated, respiratory failure, vent dependent, possible anoxic encephalopathy. SUBJECTIVE: The patient remain intubated. No gag reflex. No pupillary reflex noted. OBJECTIVE: GENERAL: Not in any apparent distress, being intubated. No pharyngeal gag reflex, on suction. No corneal reflex. VITAL SIGNS: Rest of the vitals as follow; temperature afebrile, heart rate 73, blood pressure 143/71. HEENT: PERRLA. Extraocular muscles intact. NECK: Supple. No carotid bruit. No thyromegaly. CHEST: Clear to auscultation. HEART: S1 and S2 regular. ABDOMEN: Soft. EXTREMITIES: Clubbing and cyanosis negative. LABORATORY DATA: WBC 21.5, hemoglobin 8.5, hematocrit 25.5, platelet count 89. Chemistry shows sodium 143, potassium 4, chloride 114, carbon dioxide 18, BUN 91, creatinine 3.8, total protein 5.2, albumin 2.5, albumin and globulin ratio was 0.9. IMPRESSION: A 72-year-old female with past medical history significant for hypertension, hyperlipidemia, diabetes recently discharged from the hospital. Found to be unresponsive at a [place] [facility] and transferred here. Status post cardiopulmonary resuscitation on site and status post cardiopulmonary resuscitation in [facility]. So far, the patient is intubated. Appears anoxic encephalopathy. No pharyngeal gag reflex. No corneal reflex. RECOMMENDATIONS: Continue vent management. Consider PEG and trach if prolonged intubation is anticipated, which is the case and family wants as per the nurse; everything to be done, so consider tracheostomy to prevent tracheal stenosis and PEG for feeding. Continue supportive care. Overall, the patient's condition is critical. Prognosis to full recovery appears to be grim. The patient had a repeat echo done yesterday that showed ejection fraction of 50%, trace aortic regurgitation, trace mitral regurgitation, [id number] tricuspid regurgitation, RV systolic pressure 51, large left pleural effusion, small pericardial effusion. Interim, continue antibiotic, continue DVT prophylaxis. Continue baby aspirin. Overall, the patient's condition is critical. Prognosis is extremely poor. Thank you, Dr. Gilman, for providing us the opportunity in taking care of the patient, Tamy Abbott. Alayna Trent MD [facility] # [id number]
--- NOTE | 2017-09-13 10:35 | MRI ---
Date of service: 09/12/2017 PROCEDURE: MRI BRAIN WITHOUT CONTRAST HISTORY: head ct concerning for massive stroke COMPARISON: Noncontrast head CT from 09/11/2017 TECHNIQUE: Multiplanar, multisequence MR images of the brain were obtained without intravenous contrast enhancement. FINDINGS: HEMORRHAGE: None DWI: There is extensive diffuse restricted diffusion in this cerebral cortex and cerebral as well as in the corpus striatum and bilateral thalami. BRAIN PARENCHYMA: There is also diffuse cerebral and cerebellar edema with mass effect on the brainstem and inferior herniation of the cerebellar tonsils. There is a 4 cm arachnoid cyst in the left anterior middle cranial fossa. VENTRICLES: There is compression and effacement of the 4th ventricle and moderate obstructive hydrocephalus. CRANIUM: Unremarkable. ORBITS: Grossly unremarkable. PARANASAL SINUSES/MASTOIDS: There is mild mucosal thickening in the paranasal sinuses and extensive fluid in the mastoid air cells. VASCULAR SYSTEM: There are normal signal voids in the larger intracranial arteries. OTHER FINDINGS: None. IMPRESSION: Findings are consistent with global anoxia with marked cerebral and cerebellar edema resulting in mass effect on the brainstem, infra tentorial herniation and obstructive hydrocephalus. A preliminary report was provided by [facility] services.
--- NOTE | 2017-09-13 10:41 | CP.PCM.PN ---
Subjective - Date & Time of Evaluation Date of Evaluation: 09/13/17 Time of Evaluation: 08:35 - Subjective Subjective: Still on the ventilator, sedated, with hypothermia and on warming blankets. Objective - Vital Signs/Intake and Output Vital Signs (last 24 hours): Temp Pulse Resp BP Pulse Ox 95.7 F L 73 10 L 143/71 91 L 09/13/17 08:00 09/13/17 08:00 09/12/17 07:38 09/13/17 08:00 09/13/17 08:00 Intake and Output: 09/13/17 09/13/17 06:59 18:59 Intake Total 380 Output Total 3 Balance 377 - Medications Medications: Current Medications Aspirin (Aspirin Chewable) 81 mg PO DAILY [facility] Last Admin: 09/12/17 11:30 Dose: 81 mg Heparin Sodium (Porcine) (Heparin) 5,000 units SC Q12 NIDHI PRN Reason: Protocol Last Admin: 09/12/17 21:26 Dose: 5,000 units Hydrocortisone Sodium Succinate (Solu-Cortef) 50 mg IVP Q12 [facility] Last Admin: 09/12/17 21:25 Dose: 50 mg Meropenem 500 mg/ Sodium (Chloride) 50 mls @ 100 mls/hr IVPB Q12 NIDHI PRN Reason: Protocol Stop: 09/18/17 22:01 Last Admin: 09/12/17 21:27 Dose: 100 mls/hr Insulin Human Regular (Humulin R Med) 0 units SC Q6 NIDHI PRN Reason: Protocol Last Admin: 09/13/17 06:00 Dose: 388 units Nystatin (Nystop Topical Powder) 0 gm TOP Q8 PRN PRN Reason: Itching / Pruritus Last Admin: 09/11/17 12:37 Dose: 1 applic Pantoprazole Sodium (Protonix Inj) 40 mg IVP DAILY [facility] Last Admin: 09/12/17 09:15 Dose: 40 mg - Labs Labs: 09/13/17 05:45 09/13/17 05:45 PT 14.5 SECONDS (9.4-12.5) H 09/10/17 06:00 INR 1.26 (0.93-1.08) H 09/10/17 06:00 APTT 31.2 Seconds (25.1-36.5) 09/10/17 06:00 - Constitutional Appears: Other (intubated, sedated) - ENT Exam Additional comments: ET tube in place - Respiratory Exam Respiratory Exam: Decreased Breath Sounds - Cardiovascular Exam Cardiovascular Exam: +S1, +S2 - GI/Abdominal Exam GI & Abdominal Exam: Soft. absent: Tenderness - Extremities Exam Additional comments: left groin TLC in place, site clean and intact Assessment and Plan - Assessment and Plan (Free Text) Plan: Assessment Systemic Inflammatory response syndrome after cardiorespiratory arrest with VDRF , R/O severe sepsis from bilateral pneumonia history of right foot dry gangrene with ulceration DM HTN hyperthyroidism dementia Plan continue Vancomycin and Merrem day 4 to complete 4-7 days of therapy; PCT is only 0.1 Vanco trough was17.8 yesterday, still within the 15-20 target range - will check another level today overall prognosis is poor would recommend to remove left groin TLC if unnecessary
--- NOTE | 2017-09-13 12:21 | CP.PCM.PN ---
Subjective - Date & Time of Evaluation Date of Evaluation: 09/13/17 Time of Evaluation: 09:00 - Subjective Subjective: Neurology Progress note for Dr. Hoyt Patient seen and examined this AM. No acute events reported overnight. Patient continues to have absent cough, gag, corneal reflexes. Patient continues to be off sedation and intubated without overbreathing ventilator on low tidal volume. Patient examined without family at bedside. ROS unobtainable Objective - Vital Signs/Intake and Output Vital Signs (last 24 hours): Temp Pulse Resp BP Pulse Ox 97.0 F L 77 10 L 145/63 96 09/13/17 11:50 09/13/17 11:50 09/12/17 07:38 09/13/17 11:00 09/13/17 11:50 Intake and Output: 09/13/17 09/13/17 06:59 18:59 Intake Total 380 Output Total 3 Balance 377 - Medications Medications: Current Medications Aspirin (Aspirin Chewable) 81 mg PO DAILY [facility] Last Admin: 09/13/17 09:48 Dose: 81 mg Heparin Sodium (Porcine) (Heparin) 5,000 units SC Q12 NIDHI PRN Reason: Protocol Last Admin: 09/13/17 09:47 Dose: 5,000 units Hydrocortisone Sodium Succinate (Solu-Cortef) 50 mg IVP DAILY [facility] Last Admin: 09/13/17 09:48 Dose: 50 mg Meropenem 500 mg/ Sodium (Chloride) 50 mls @ 100 mls/hr IVPB Q12 NIDHI PRN Reason: Protocol Stop: 09/18/17 22:01 Last Admin: 09/13/17 09:52 Dose: 100 mls/hr Insulin Detemir (Levemir) 15 unit SC HS [facility] Insulin Human Regular (Humulin R Med) 0 units SC Q6 NIDHI PRN Reason: Protocol Last Admin: 09/13/17 12:13 Dose: 7 units Nystatin (Nystop Topical Powder) 0 gm TOP Q8 PRN PRN Reason: Itching / Pruritus Last Admin: 09/11/17 12:37 Dose: 1 applic Pantoprazole Sodium (Protonix Inj) 40 mg IVP DAILY [facility] Last Admin: 09/13/17 09:48 Dose: 40 mg - Labs Labs: 09/13/17 05:45 09/13/17 05:45 PT 14.5 SECONDS (9.4-12.5) H 09/10/17 06:00 INR 1.26 (0.93-1.08) H 09/10/17 06:00 APTT 31.2 Seconds (25.1-36.5) 09/10/17 06:00 - Constitutional Appears: No Acute Distress - Head Exam Head Exam: ATRAUMATIC, NORMAL INSPECTION, NORMOCEPHALIC - Eye Exam Pupil Exam: Fixed. absent: PERRL - ENT Exam ENT Exam: Mucous Membranes Moist Additional comments: ET tube in place - Respiratory Exam Respiratory Exam: NORMAL BREATHING PATTERN Additional comments: Coarse breath sounds - Cardiovascular Exam Cardiovascular Exam: +S1, +S2 - GI/Abdominal Exam GI & Abdominal Exam: Soft, Hypoactive Bowel Sounds - Extremities Exam Extremities Exam: Pedal Edema ( 3+) - Neurological Exam Neurological Exam: absent: Alert, Awake Additional comments: Unresponsive, GCS 3 off sedation Absent corneal, gag, cough reflex - Psychiatric Exam Additional comments: unresponsive - Skin Skin Exam: Dry, Intact Assessment and Plan - Assessment and Plan (Free Text) Assessment: 71 year old female with past medical history of HTN, demenita, hypothyroidism, recurrent falls and recent history of syncope and anemia who presented to [facility] ED s/p cardiac arrest with unknown downtime. Patient currently has GCS of 3, off sedation for >72 hours and intubated. Patient continues to be unresponsive and clinically unchanged Plan: Hypoxic brain injury - S/p cardiac arrest, unknown total down time - Head CT(09/09/17): showing signs of edema and with loss of jones white junction - Repeat Head CT: extensive edema involving both hemispheres, brainstem, and cerebellum, hypodenisty areas suggestive of stroke - MRI Brain(09/12/17): Showing diffuse global anoxia with marked cerebral and cerebellar edema with mass effect on the brainstem, infra tentorial herniation and obstructive hydrocephalus - EEG(09/12/17) with electrocerebral silence - ASA 81mg - Maintatin Euglycemia, replete lytes as needed - Maintatin SaO2>90% - Head above 30 degrees - Overall prognosis poor Case and plan discussed with attending, Dr. Lai Barfield PGY-2
--- NOTE | 2017-09-13 13:59 | CP.PCM.PN ---
<Sumaya Lieberman - Last Filed: 09/13/17 13:55> Subjective - Date & Time of Evaluation Date of Evaluation: 09/13/17 Time of Evaluation: 13:55 - Subjective Subjective: Podiatry Progress Note - Dr. Trujillo 72 yo female seen and examined at bedside in ICU with attending Dr. Trujillo for left lateral foot ulceration site. Pt is unable to respond to questions due to altered mental status and intubation. Dressing is C/D/I and heels are offloaded with pillow under knees. Nursing reports no acute changes overnight. Per chart review, pt unresponsive to painful stimuli Objective - Vital Signs/Intake and Output Vital Signs (last 24 hours): Temp Pulse Resp BP Pulse Ox 97.0 F L 77 10 L 145/63 96 09/13/17 11:50 09/13/17 12:00 09/12/17 07:38 09/13/17 11:00 09/13/17 11:50 Intake and Output: 09/13/17 09/13/17 06:59 18:59 Intake Total 380 Output Total 3 Balance 377 - Medications Medications: Current Medications Aspirin (Aspirin Chewable) 81 mg PO DAILY [facility] Last Admin: 09/13/17 09:48 Dose: 81 mg Heparin Sodium (Porcine) (Heparin) 5,000 units SC Q12 NIDHI PRN Reason: Protocol Last Admin: 09/13/17 09:47 Dose: 5,000 units Hydrocortisone Sodium Succinate (Solu-Cortef) 50 mg IVP DAILY [facility] Last Admin: 09/13/17 09:48 Dose: 50 mg Meropenem 500 mg/ Sodium (Chloride) 50 mls @ 100 mls/hr IVPB Q12 NIDHI PRN Reason: Protocol Stop: 09/18/17 22:01 Last Admin: 09/13/17 09:52 Dose: 100 mls/hr Insulin Detemir (Levemir) 15 unit SC HS [facility] Insulin Human Regular (Humulin R Med) 0 units SC Q6 NIDHI PRN Reason: Protocol Last Admin: 09/13/17 12:13 Dose: 7 units Nystatin (Nystop Topical Powder) 0 gm TOP Q8 PRN PRN Reason: Itching / Pruritus Last Admin: 09/11/17 12:37 Dose: 1 applic Pantoprazole Sodium (Protonix Inj) 40 mg IVP DAILY [facility] Last Admin: 09/13/17 09:48 Dose: 40 mg - Labs Labs: 09/13/17 05:45 09/13/17 05:45 PT 14.5 SECONDS (9.4-12.5) H 09/10/17 06:00 INR 1.26 (0.93-1.08) H 09/10/17 06:00 APTT 31.2 Seconds (25.1-36.5) 09/10/17 06:00 - Constitutional Appears: Well, Non-toxic, No Acute Distress - Extremities Exam Additional comments: Lower extremity focused exam: Vasc: DP and PT pulses palpable 1/4 B/L. Temperature gradient warm to cool. CFT < 3 sec to all digits. No pedal edema is noted Derm: Open superficial ulceration measuring approximately 6 cm x 3 cm x 0.2 cm to left lateral forefoot with 90% granular/10% fibrotic wound base. Good signs of healing noted to wound bed. No lukas wound erythema, no tunneling or undermining present, no malodor, no streaking, no purulence, No other clinical signs of infection. Wound appears stable at this time. Stage 1 pressure ulceration noted to plantar medial heel with no breaks in skin or soft tissue. Right plantar heel exhibits necrotic eschar, stable. Neuro: Unable to assess due to altered mental status Ortho: Unable to assess pain and discomfort due to mental status. No other gross deformities noted - Neurological Exam Neurological Exam: Alert, Awake, Oriented x3 - Psychiatric Exam Psychiatric exam: Normal Affect, Normal Mood Assessment and Plan - Assessment and Plan (Free Text) Assessment: 72 y/o female with left lateral foot diabetic ulceration Plan: Pt seen and evaluated with Dr. Trujillo Chart, labs and vitals reviewed; afebrile, WBC 21.5 Left lateral foot ulcer cleaned with saline dressed with Optifoam bandage Heels offloaded with supportive pillow Continue IV abx - Meropenem Will continue to follow pt and perform local wound care <Harrison Trujillo - Last Filed: 09/16/17 11:20> Objective - Vital Signs/Intake and Output Vital Signs (last 24 hours): Temp Pulse Resp BP Pulse Ox 98.1 F 80 25 H 101/47 L 98 09/16/17 08:20 09/16/17 08:20 09/16/17 07:14 09/16/17 08:00 09/16/17 08:20 Intake and Output: 09/16/17 09/16/17 06:59 18:59 Intake Total 1210 Output Total 0 Balance 1210 - Medications Medications: Current Medications Artificial Tears (Artificial Tears) 0 ml OU Q6 PRN PRN Reason: Dry eyes Last Admin: 09/16/17 09:29 Dose: 1 unit Aspirin (Aspirin Chewable) 81 mg PO DAILY [facility] Last Admin: 09/16/17 09:07 Dose: 81 mg Heparin Sodium (Porcine) (Heparin) 5,000 units SC Q12 NIDHI PRN Reason: Protocol Last Admin: 09/15/17 23:00 Dose: 5,000 units Insulin Detemir (Levemir) 15 unit SC HS [facility] Last Admin: 09/15/17 23:00 Dose: 15 units Insulin Human Regular (Humulin R Med) 0 units SC Q6 NIDHI PRN Reason: Protocol Last Admin: 09/16/17 08:00 Dose: Not Given Nystatin (Nystop Topical Powder) 0 gm TOP Q8 PRN PRN Reason: Itching / Pruritus Last Admin: 09/11/17 12:37 Dose: 1 applic Pantoprazole Sodium (Protonix Inj) 40 mg IVP DAILY [facility] Last Admin: 09/16/17 09:07 Dose: 40 mg - Labs Labs: 09/16/17 06:00 09/16/17 06:00 PT 14.5 SECONDS (9.4-12.5) H 09/10/17 06:00 INR 1.26 (0.93-1.08) H 09/10/17 06:00 APTT 31.2 Seconds (25.1-36.5) 09/10/17 06:00 Attending/Attestation - Attestation I have personally seen and examined this patient.: Yes I have fully participated in the care of the patient.: Yes I have reviewed all pertinent clinical information, including history, physical exam and plan: Yes
[2017-09-13] MEDS ORDERED: Mannitol 12.5 gm/50 ml Inj IV ONE ×2 (15:05→15:13)
--- NOTE | 2017-09-13 15:26 | PN ---
DATE: 09/13/2017 PULMONARY CRITICAL CARE PROGRESS NOTE REFERRING PHYSICIAN: Deisy Gilman MD SUBJECTIVE: She is unresponsive, on ventilator, overnight events noted, tolerating G-tube feeding well, has anasarca, upper and lower extremity swelling. No hemoptysis, no hematemesis, no hematuria, no diarrhea reported. OBJECTIVE: GENERAL: On ventilator, unresponsive, hypothermic. VITAL SIGNS: Temperature is 97, heart rate is 77, respiratory rate is 20, pulse ox 96% on ventilator, blood pressure 145/63. HEENT: Moist mucous membrane. Crowded airway. ET tube, no secretion. NECK: Supple. No JVD. LUNGS: Scattered rhonchi. Few crackles. HEART: S1 and S2. ABDOMEN: Soft, nontender, nondistended. EXTREMITIES: Does have edema. NEUROLOGIC: Unresponsive. MEDICATIONS: She is on aspirin 81 mg daily, heparin 5000 units subcutaneously every 12 hours, insulin coverage, Levemir 50 units subcutaneously at bedtime, meropenem 500 mg every 12 hours, nystatin to affected area every 8 hours, Protonix 40 mg daily, Solu-Cortef 50 mg daily. LABORATORY DATA: Shows hemoglobin 8.5, hematocrit 25.5, WBC 21,000, and platelet count is 89. Sodium 146, potassium 4.2, chloride 114, bicarbonate 18. BUN 91, creatinine 3.8. Glucose is 311. Calcium is 8, phosphorus 4.4, magnesium 2. AST 45, ALT 25, alkaline phosphatase is 99. Albumin is 2.5. IMPRESSION AND PLAN: Status post cardiopulmonary arrest, probably hypoxic encephalopathy, history of dementia, hypertension, diabetes, peripheral vascular disease with known heel ulcers, renal failure, urinary tract infection with extended-spectrum beta-lactamases organism. Case discussed with the nursing staff, being followed by palliative care, being followed by clinical data assistant, Cardiology, Infectious Diseases, and Neurology. Had MRI of the brain done yesterday, which finding was consistent with global anoxia with marked cerebellar edema resulting in mass effect on the brainstem, infratentorial herniation and obstructive hydrocephalus. The patient has a very poor prognosis. We will order followup labs in the morning. We will keep working with the family. Thank you and we will follow with you. Alayna Terry MD [facility] # [id number]
[2017-09-14] MEDS: Insulin Detemir 100 units/ml Vial (Levemir) SC SCH ×2 (00:18→23:00)
[2017-09-14] MEDS: Meropenem 500 MG in Sodium Chloride 0.9% 50 ML IVPB SCH ×3 (00:18→22:10)
--- NOTE | 2017-09-14 00:26 | PN ---
DATE: 09/13/2017 SUBJECTIVE: Patient was seen and examined at the bedside on 09/13/2017. Patient is still unresponsive on ventilator. Overnight events are noted. Tolerating G-tube feeding well. No nausea or vomiting. Has anasarca. No hemoptysis, no hematemesis, no hematuria, no hematochezia. Patient is unresponsive, is not able to give review of system. PHYSICAL EXAMINATION: VITAL SIGNS: Temperature 97, heart rate 77, respiratory rate 20, blood pressure 145/63. HEENT: Head normocephalic, atraumatic. Eyes closed. Nose patent. Mucous membranes moist. NECK: Supple. No JVD. LUNGS: Scattered rhonchi, a few crackles. HEART: S1, S2 positive. ABDOMEN: Soft, nontender, no organomegaly, not distended. EXTREMITIES: Have trace edema. NEUROLOGIC: Patient is unresponsive. Cannot do complete neurologic examination. MEDICATIONS: Aspirin, heparin, Levemir, meropenem, Protonix, Solu Cortef. LABORATORY DATA: Hemoglobin 8.5, hematocrit 25.5, white blood cells 21,000, platelets 89. Sodium 146, potassium 4.2, BUN 91, creatinine 3.8, AST 45, ALT 25. ASSESSMENT AND PLAN: Ms. Tamy Abbott is a 72-year-old lady status post cardiopulmonary arrest, probably hypoxic encephalopathy, dementia, hypertension, diabetes mellitus, peripheral vascular disease, heel ulcers, history of osteomyelitis, renal failure, urinary tract infection, history of sepsis, history of extended-spectrum beta-lactamases organism urinary tract infection. Reviewed Dr. Terry's notes. Had MRI of the brain, one yesterday which finding was consistent with global anoxia with marked cerebellar edema resulting in mass effect on the brain stem, infratentorial herniation and obstructive hydrocephalus. Very poor prognosis. Patient is DNR. Family and hospital palliative care team is working on palliative care. Still working with the family. Gastrointestinal and deep venous thrombosis prophylaxis. Repeat labs. We will follow. Deisy Gilman MD
[2017-09-14] MEDS: Insulin Reg-MEDIUM-Coverage SC SCH ×4 (05:46→18:54)
[2017-09-14 06:34] LABS: EOS # 0.3 (0.0-0.7); EOS % 1.9 % (1.5-5.0); GRAN # 10.54 (1.4-6.5); GRAN % 76.7 % (50.0-68.0); HEMOGLOBIN 8.3 g/dL (12.0-16.0); LYMPH # 1.6 (1.2-3.4); LYMPH % 11.8 % (22.0-35.0); MEAN CELL VOLUME 81.4 fl (80.0-105.0); MEAN CORPUSCULAR HEMOGLOBIN 26.6 pg (25.0-35.0); MEAN CORPUSCULAR HGB CONC 32.7 g/dl (31.0-37.0); MONO # 1.3 (0.1-0.6); MONO % 9.6 % (1.0-6.0); PLATELET COUNT 94 10^3/uL (120.0-450.0); RBC 3.12 10^6/uL (3.5-6.1); RED CELL DISTRIBUTION WIDTH 17.9 % (11.5-14.5)
[2017-09-14 06:58] LABS: ALB/GLOB RATIO 0.9 (1.1-1.8); ALBUMIN 2.4 g/dL (3.0-4.8); WHITE BLOOD COUNT 13.7 10^3/ul (4.5-11.0)
[2017-09-14] MEDS ORDERED: Aritificial Tears (15ml) OU PRN ×2 (08:43→08:46)
--- NOTE | 2017-09-14 09:52 | CP.PCM.PN ---
<Sumaya Lieberman - Last Filed: 09/14/17 09:49> Subjective - Date & Time of Evaluation Date of Evaluation: 09/14/17 Time of Evaluation: 09:49 - Subjective Subjective: Podiatry Progress Note - Dr. Anderson 72 yo female seen and examined at bedside in ICU for left lateral foot ulceration site. Pt is intubated and unresponsive to stimuli. Dressing is C/D/I and heels are offloaded with heel pads bilaterally. Nursing reports no acute changes overnight and no change in patient status. Objective - Vital Signs/Intake and Output Vital Signs (last 24 hours): Temp Pulse Resp BP Pulse Ox 99.7 F H 86 10 L 150/70 98 09/14/17 01:10 09/14/17 02:00 09/12/17 07:38 09/14/17 01:00 09/14/17 01:10 - Medications Medications: Current Medications Artificial Tears (Artificial Tears) 0 ml OU QID PRN PRN Reason: Dry eyes Last Admin: 09/14/17 09:17 Dose: 1 drop Aspirin (Aspirin Chewable) 81 mg PO DAILY [facility] Last Admin: 09/14/17 09:14 Dose: 81 mg Heparin Sodium (Porcine) (Heparin) 5,000 units SC Q12 NIDHI PRN Reason: Protocol Last Admin: 09/14/17 09:15 Dose: 5,000 units Meropenem 500 mg/ Sodium (Chloride) 50 mls @ 100 mls/hr IVPB Q12 NIDHI PRN Reason: Protocol Stop: 09/18/17 22:01 Last Admin: 09/14/17 09:16 Dose: 100 mls/hr Insulin Detemir (Levemir) 15 unit SC HS [facility] Last Admin: 09/14/17 00:18 Dose: 15 units Insulin Human Regular (Humulin R Med) 0 units SC Q6 NIDHI PRN Reason: Protocol Last Admin: 09/14/17 05:46 Dose: Not Given Nystatin (Nystop Topical Powder) 0 gm TOP Q8 PRN PRN Reason: Itching / Pruritus Last Admin: 09/11/17 12:37 Dose: 1 applic Pantoprazole Sodium (Protonix Inj) 40 mg IVP DAILY [facility] Last Admin: 09/14/17 09:17 Dose: 40 mg - Labs Labs: 09/14/17 06:25 09/14/17 06:25 PT 14.5 SECONDS (9.4-12.5) H 09/10/17 06:00 INR 1.26 (0.93-1.08) H 09/10/17 06:00 APTT 31.2 Seconds (25.1-36.5) 09/10/17 06:00 - Constitutional Appears: Well, Non-toxic, No Acute Distress - Extremities Exam Additional comments: Lower extremity focused exam: Vasc: DP and PT pulses palpable 1/4 B/L. Temperature gradient warm to cool. CFT < 3 sec to all digits. No pedal edema is noted Derm: Open superficial ulceration measuring approximately 6 cm x 3 cm x 0.2 cm to left lateral forefoot with 90% granular/10% fibrotic wound base. Good signs of healing noted to wound bed. No lukas wound erythema, no tunneling or undermining present, no malodor, no streaking, no purulence, No other clinical signs of infection. Wound appears stable at this time. Stage 1 pressure ulceration noted to plantar medial heel with no breaks in skin or soft tissue. Right plantar heel exhibits necrotic eschar, stable. Neuro: Unable to assess due to altered mental status Ortho: Unable to assess pain and discomfort due to mental status. No other gross deformities noted - Neurological Exam Neurological Exam: Altered - Psychiatric Exam Additional comments: unable to assess due to pt being intubated and unresponsive Assessment and Plan - Assessment and Plan (Free Text) Assessment: 72 y/o female with left lateral foot diabetic ulceration Plan: Pt seen and evaluated in ICU Discussed with Dr. Anderson Pt remains afebrile, WBC 13.7 down from 21.5 Left lateral foot ulcer cleaned with saline and dressed with Optifoam bandage Heel pads in place, to be worn at all times Continue IV abx - Meropenem Will continue to follow pt and perform local wound care <Eboni Anderson - Last Filed: 09/17/17 18:57> Objective - Vital Signs/Intake and Output Vital Signs (last 24 hours): Temp Pulse Resp BP Pulse Ox 98.4 F 26 L 7 L 95/44 L 45 L 09/16/17 13:20 09/16/17 13:54 09/16/17 14:07 09/16/17 13:00 09/16/17 13:50 - Labs Labs: 09/16/17 06:00 09/16/17 06:00 PT 14.5 SECONDS (9.4-12.5) H 09/10/17 06:00 INR 1.26 (0.93-1.08) H 09/10/17 06:00 APTT 31.2 Seconds (25.1-36.5) 09/10/17 06:00 Attending/Attestation - Attestation I have personally seen and examined this patient.: Yes I have fully participated in the care of the patient.: Yes I have reviewed all pertinent clinical information, including history, physical exam and plan: Yes
--- NOTE | 2017-09-14 09:54 | CP.CCUPN ---
<Donn Rocha - Last Filed: 09/14/17 11:58> CCU Subjective - Physician Review Subjective (Free Text): Donn Rocha, PGY1 ICU Critical Care Progress Note for Dr. Galdamez Patient was seen and examined at bedside this morning. Patient is intubated and currently on Low Tidal Volume Ventilation. ROS not obtained due to intubation. Patient has anuria, urban has drained 90 mL within the past 24 hours. Patient has a history of ESBL and is still currently contact precaution. Will maintain femoral TLC line for laboratory blood draws since patient has anasarca. CCU Objective - Vital Signs / Intake & Output Intake and Output (Last 8hrs): Intake & Output 09/13/17 09/14/17 09/14/17 22:59 06:59 14:59 Intake Total 740 Output Total 90 Balance 650 Intake: IV 100 Femoral 100 Tube Feeding 640 Output: Urine 90 Urethral (Urban) 90 - Physical Exam Head: Positive for: Atraumatic, Normocephalic Pupils: Positive for: Non-Reactive, Other (dilated, +3 pupils both sides, No corneal reflex) Conjunctiva: Positive for: Normal Mouth: Positive for: Moist Mucous Membranes, Other (intubated, no gag reflex) Nose (External): Positive for: Other (NG tube in place) Respiratory/Chest: Positive for: Other (Coarse breath sound bilaterally). Negative for: Wheezes, Rales, Rhonchi Cardiovascular: Positive for: Regular Rate and Rhythm, Normal S1, S2. Negative for: Murmurs Abdomen: Positive for: Normal Bowel Sounds, Feeding Tubes, Other (Obese) Genitourinary/Pelvic Exam: Positive for: Other (Urban in place) Back: Positive for: Normal Inspection Upper Extremity: Positive for: Normal Inspection. Negative for: Cyanosis, Edema Lower Extremity: Positive for: Edema (+3 Pitting edema), Other (L foot dressed by Dr. Anderson for diabetic ulcer) Neurological: Positive for: Other (Unresponsive) Skin: Positive for: Dry, Other (Anasarca ). Negative for: Warm (Upper and lower extremities cool to touch), Rashes - Medications Active Medications: Active Medications Generic Name Dose Route Start Last Admin Trade Name Freq PRN Reason Stop Dose Admin Artificial Tears 0 ml 09/14/17 08:46 09/14/17 09:17 Artificial Tears OU 1 drop QID PRN Administration Dry eyes Aspirin 81 mg 09/12/17 10:00 09/14/17 09:14 Aspirin Chewable PO 81 mg DAILY NIDHI Administration Heparin Sodium (Porcine) 5,000 units 09/09/17 22:00 09/14/17 09:15 Heparin SC 5,000 units Q12 NIDHI Administration Protocol Meropenem 500 mg/ Sodium 50 mls @ 100 mls/hr 09/09/17 22:00 09/14/17 09:16 Chloride IVPB 09/18/17 22:01 100 mls/hr Q12 NIDHI Administration Protocol Insulin Detemir 15 unit 09/13/17 22:00 09/14/17 00:18 Levemir SC 15 units HS NIDHI Administration Insulin Human Regular 0 units 09/09/17 12:00 09/14/17 05:46 Humulin R Med SC Not Given Q6 [facility] Protocol Nystatin 0 gm 09/09/17 13:29 09/11/17 12:37 Nystop Topical Powder TOP 1 applic Q8 PRN Administration Itching / Pruritus Pantoprazole Sodium 40 mg 09/09/17 10:00 09/14/17 09:17 Protonix Inj IVP 40 mg DAILY NIDHI Administration - Patient Studies Lab Studies: Microbiology Studies 09/09/17 06:30 Blood Culture - Final Blood NO GROWTH AFTER 5 DAYS Gram Stain - Final TEST NOT PERFORMED 09/09/17 06:30 Blood Culture - Final Blood NO GROWTH AFTER 5 DAYS Gram Stain - Final TEST NOT PERFORMED Lab Studies 09/14/17 09/14/17 09/13/17 Range/Units 06:25 06:25 17:16 WBC 13.7 H D (4.5-11.0) 10^3/ul RBC 3.12 L (3.5-6.1) 10^6/uL Hgb 8.3 L (12.0-16.0) g/dL Hct 25.4 L (36.0-48.0) % MCV 81.4 (80.0-105.0) fl MCH 26.6 (25.0-35.0) pg MCHC 32.7 (31.0-37.0) g/dl RDW 17.9 H (11.5-14.5) % Plt Count 94 L (120.0-450.0) 10^3/uL Gran % 76.7 H (50.0-68.0) % Lymph % (Auto) 11.8 L (22.0-35.0) % Cloud % (Auto) 9.6 H (1.0-6.0) % Eos % (Auto) 1.9 (1.5-5.0) % Baso % (Auto) 0.0 (0.0-3.0) % Gran # 10.54 H (1.4-6.5) Lymph # (Auto) 1.6 (1.2-3.4) Cloud # (Auto) 1.3 H (0.1-0.6) Eos # (Auto) 0.3 (0.0-0.7) Baso # (Auto) 0.00 (0.0-2.0) K/mm3 Sodium 145 (132-148) mmol/L Potassium 4.5 (3.6-5.0) mmol/L Chloride 114 H (98-107) mmol/L Carbon Dioxide 19 L (21-33) mmol/L Anion Gap 17 (10-20) BUN 100 H (7-21) mg/dL Creatinine 4.5 H (0.7-1.2) mg/dl Est GFR ( Amer) 12 Est GFR (Non-Af Amer) 10 POC Glucose (mg/dL) 313 H (65-110) mg/dL Random Glucose 254 H (70-110) mg/dL Calcium 8.0 L (8.4-10.5) mg/dL Phosphorus 4.4 (2.5-4.5) mg/dL Magnesium 2.0 (1.7-2.2) mg/dL Total Bilirubin 0.4 (0.2-1.3) mg/dL AST 40 H (14-36) U/L ALT 20 (7-56) U/L Alkaline Phosphatase 86 (38-126) U/L Total Protein 5.1 L (5.8-8.3) g/dL Albumin 2.4 L (3.0-4.8) g/dL Globulin 2.7 gm/dL Albumin/Globulin Ratio 0.9 L (1.1-1.8) Vancomycin Trough (5.0-10.0) ug/mL 09/13/17 09/13/17 Range/Units 12:04 09:47 WBC (4.5-11.0) 10^3/ul RBC (3.5-6.1) 10^6/uL Hgb (12.0-16.0) g/dL Hct (36.0-48.0) % MCV (80.0-105.0) fl MCH (25.0-35.0) pg MCHC (31.0-37.0) g/dl RDW (11.5-14.5) % Plt Count (120.0-450.0) 10^3/uL Gran % (50.0-68.0) % Lymph % (Auto) (22.0-35.0) % Cloud % (Auto) (1.0-6.0) % Eos % (Auto) (1.5-5.0) % Baso % (Auto) (0.0-3.0) % Gran # (1.4-6.5) Lymph # (Auto) (1.2-3.4) Cloud # (Auto) (0.1-0.6) Eos # (Auto) (0.0-0.7) Baso # (Auto) (0.0-2.0) K/mm3 Sodium (132-148) mmol/L Potassium (3.6-5.0) mmol/L Chloride (98-107) mmol/L Carbon Dioxide (21-33) mmol/L Anion Gap (10-20) BUN (7-21) mg/dL Creatinine (0.7-1.2) mg/dl Est GFR ( Amer) Est GFR (Non-Af Amer) POC Glucose (mg/dL) 311 H (65-110) mg/dL Random Glucose (70-110) mg/dL Calcium (8.4-10.5) mg/dL Phosphorus (2.5-4.5) mg/dL Magnesium (1.7-2.2) mg/dL Total Bilirubin (0.2-1.3) mg/dL AST (14-36) U/L ALT (7-56) U/L Alkaline Phosphatase (38-126) U/L Total Protein (5.8-8.3) g/dL Albumin (3.0-4.8) g/dL Globulin gm/dL Albumin/Globulin Ratio (1.1-1.8) Vancomycin Trough 16.8 H* (5.0-10.0) ug/mL Laboratory Results - last 24 hr 09/13/17 09/13/17 09/13/17 09:47 12:04 17:16 WBC RBC Hgb Hct MCV MCH MCHC RDW Plt Count Gran % Lymph % (Auto) Cloud % (Auto) Eos % (Auto) Baso % (Auto) Gran # Lymph # (Auto) Cloud # (Auto) Eos # (Auto) Baso # (Auto) Sodium Potassium Chloride Carbon Dioxide Anion Gap BUN Creatinine Est GFR ( Amer) Est GFR (Non-Af Amer) POC Glucose (mg/dL) 311 H 313 H Random Glucose Calcium Phosphorus Magnesium Total Bilirubin AST ALT Alkaline Phosphatase Total Protein Albumin Globulin Albumin/Globulin Ratio Vancomycin Trough 16.8 H* 09/14/17 09/14/17 06:25 06:25 WBC 13.7 H D RBC 3.12 L Hgb 8.3 L Hct 25.4 L MCV 81.4 MCH 26.6 MCHC 32.7 RDW 17.9 H Plt Count 94 L Gran % 76.7 H Lymph % (Auto) 11.8 L Cloud % (Auto) 9.6 H Eos % (Auto) 1.9 Baso % (Auto) 0.0 Gran # 10.54 H Lymph # (Auto) 1.6 Cloud # (Auto) 1.3 H Eos # (Auto) 0.3 Baso # (Auto) 0.00 Sodium 145 Potassium 4.5 Chloride 114 H Carbon Dioxide 19 L Anion Gap 17 BUN 100 H Creatinine 4.5 H Est GFR ( Amer) 12 Est GFR (Non-Af Amer) 10 POC Glucose (mg/dL) Random Glucose 254 H Calcium 8.0 L Phosphorus 4.4 Magnesium 2.0 Total Bilirubin 0.4 AST 40 H ALT 20 Alkaline Phosphatase 86 Total Protein 5.1 L Albumin 2.4 L Globulin 2.7 Albumin/Globulin Ratio 0.9 L Vancomycin Trough Fingerstick Blood Sugar Results: 313 Review of Systems - Review of Systems Systems not reviewed;Unavailable: Intubated Critical Care Progress Note - Ventilator Checklist Head of Bed 30 Degrees: Yes Daily Sedation Vacation: Yes Daily Assessment of Readiness to Wean: Yes Daily Spontaneous Breathing Trial: Yes PUD Prophalyxis: Yes DVT Prophylaxis: Yes Oral Care with Chlorhexidine Gluconate {CHG}: Yes - Vent Settings MODE:: PRVC TIDAL VOLUME:: 380 RESP RATE:: 25 FIO2:: 50 PEEP:: 7 - Extremities/Vascular Does the Patient have a Central Venous Catheter?: Yes Insertion Site: Femoral Vein Does the Patient need a Central Venous Catheter?: Yes Does the Patient have a Urban Catheter?: Yes Does the Patient need a Urban Catheter?: Yes Catheter Insertion Criteria: Need for accurate measurement of output in critically ill patient - Prophylaxis GI Prophylaxis GI: PPI - Prophylaxis DVT Prophylaxis DVT: Heparin SQ - Nutrition Nutrition: Nutrition Category Date Time Status NPO Diet [DIET] Diets 09/09/17 Breakfast Ordered Assessment/Plan - Assessment and Plan (Free Text) Assessment: 72 y/o Female with a PMH of HTN, DM2, hypothyroidism, sacral decubitus, and recurrent falls who presents from [facility] after being found unresponsive (downtime unknown), with no pulses and in asystole. ACLS was initiated and ROSC obtained (please see ED notes and ICU consult note for further information). She was transferred to ICU for further management. Patient initially required pressors for BP support but is off now. Patient is intubated and being ventilated using a low tidal volume ventilation (LTVV) strategy for ARDS. Sedation and paralytic agents (Nimbex) were used but are off now. 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 ID and cardiology are following. As per family members, patient is DNR. Patient has anuria, however, nephrology does not recommend dialysis at this time. Patient still has Femoral TLC line for laboratory blood draws since patient has anasarca and insertion of peripheral line would be challenging. Patient is currently contact precaution due to history of ESBL. Overall, patient prognosis is poor. Palliative care is following. Will discuss with family about possible terminal extubation versus LTACH. Plan: Neuro: - MRI Brain (09/13): global anoxic injury with infra-tentorial herniation at brainstem with mass effect. - CT head (09/11): anoxic encephalopathy - Patient is off sedatives and Nimbex paralytic agent - Neurology is consulted, recs appreciated - Negative cold water caloric stimulation test - Brain flow study pending - Following Brain Protocol Cardio: - Cardio is consulted, recs appreciated - Maintain L femoral TLC line because of necessity since patient has anasarca and insertion of peripheral lines would be challenging - Goal MAP > 65 - BP managed: patient off pressors - Echo (09/10): LV normal size, mild concentric LV hypertrophy, EF 50%, trace aortic and mitral regurgitation. Large left pleural effusion and small pericardial effusion. No vegetation or thrombus. - d/c steroids Pulm: - CT of chest showed extensive bilateral airspace disease with air bronchograms consistent with bilateral lobar pneumonia - ET tube in place - Continue low tidal volume ventilation with TV 380, RR 25, FiO2 50%, PEEP 7 - Urine Legionella and strep negative - Procol .10 - Continue IV antibiotics, ID is consulted, recs appreciated - Maintain head of Bed > 30, Daily oral care, suction prn, DVT and GI ppx GI: - CT abdomen/pelvis showed distended gallbladder, moderate small bowel thickening and anasarca - NPO - NGT: Patient is on tube feeds - GI ppx to prevent gastric ulcers Renal: - Anuria: low urban output - Worsening renal function: trending upwards BUN/Cr - Urine culture: positive for yeast - Monitor electrolytes daily and replete as necessary - No plans for dialysis at this time, as per Nephrology : - History of ESBL - Maintain Contact Precautions ID - Downtrending WBC - ID is consulted, recs appreciated - Continue antibiotics per ID: [email or web address], day #6 - Vancomycin is given based on trough level by ID - Blood cultures negative x4 after 3 days - MRSA screen negative - Sputum culture negative - History of ESBL: maintain contact precautions, c/w antibiotics Heme - Leukocytosis is noted, with no bandemia - Anemia is noted but improved from prior visits - DVT PPX to prevent pulmonary embolism 2/2 immobility Endo - Hyperglycemia: started on Levemir and c/w ISS; d/c steroids - Maintain euglycemia - ISS and Accuchecks Q6 - TSH elevated Dispo: continue ICU management. Continue with Low Tidal Volume Ventilation. Discuss with family today about possible terminal extubation versus LTACH. Case was reviewed and discussed with attending Physician Dr. Galdamez <Germain Galdamez - Last Filed: 09/14/17 12:02> CCU Objective - Vital Signs / Intake & Output Intake and Output (Last 8hrs): Intake & Output 09/13/17 09/14/17 09/14/17 22:59 06:59 14:59 Intake Total 740 Output Total 90 Balance 650 Intake: IV 100 Femoral 100 Tube Feeding 640 Output: Urine 90 Urethral (Urban) 90 - Medications Active Medications: Active Medications Generic Name Dose Route Start Last Admin Trade Name Freq PRN Reason Stop Dose Admin Artificial Tears 0 ml 09/14/17 10:04 Artificial Tears OU Q6 PRN Dry eyes Aspirin 81 mg 09/12/17 10:00 09/14/17 09:14 Aspirin Chewable PO 81 mg DAILY NIDHI Administration Heparin Sodium (Porcine) 5,000 units 09/09/17 22:00 09/14/17 09:15 Heparin SC 5,000 units Q12 N[facility] Administration Protocol Meropenem 500 mg/ Sodium 50 mls @ 100 mls/hr 09/09/17 22:00 09/14/17 09:16 Chloride IVPB 09/18/17 22:01 100 mls/hr Q12 NIDHI Administration Protocol Insulin Detemir 15 unit 09/13/17 22:00 09/14/17 00:18 Levemir SC 15 units HS NIDHI Administration Insulin Human Regular 0 units 09/09/17 12:00 09/14/17 05:46 Humulin R Med SC Not Given Q6 [facility] Protocol Nystatin 0 gm 09/09/17 13:29 09/11/17 12:37 Nystop Topical Powder TOP 1 applic Q8 PRN Administration Itching / Pruritus Pantoprazole Sodium 40 mg 09/09/17 10:00 09/14/17 09:17 Protonix Inj IVP 40 mg DAILY NIDHI Administration - Patient Studies Lab Studies: Microbiology Studies 09/09/17 06:30 Blood Culture - Final Blood NO GROWTH AFTER 5 DAYS Gram Stain - Final TEST NOT PERFORMED 09/09/17 06:30 Blood Culture - Final Blood NO GROWTH AFTER 5 DAYS Gram Stain - Final TEST NOT PERFORMED Lab Studies 09/14/17 09/14/17 09/14/17 Range/Units 11:26 06:25 06:25 WBC 13.7 H D (4.5-11.0) 10^3/ul RBC 3.12 L (3.5-6.1) 10^6/uL Hgb 8.3 L (12.0-16.0) g/dL Hct 25.4 L (36.0-48.0) % MCV 81.4 (80.0-105.0) fl MCH 26.6 (25.0-35.0) pg MCHC 32.7 (31.0-37.0) g/dl RDW 17.9 H (11.5-14.5) % Plt Count 94 L (120.0-450.0) 10^3/uL Gran % 76.7 H (50.0-68.0) % Lymph % (Auto) 11.8 L (22.0-35.0) % Cloud % (Auto) 9.6 H (1.0-6.0) % Eos % (Auto) 1.9 (1.5-5.0) % Baso % (Auto) 0.0 (0.0-3.0) % Gran # 10.54 H (1.4-6.5) Lymph # (Auto) 1.6 (1.2-3.4) Cloud # (Auto) 1.3 H (0.1-0.6) Eos # (Auto) 0.3 (0.0-0.7) Baso # (Auto) 0.00 (0.0-2.0) K/mm3 Sodium 145 (132-148) mmol/L Potassium 4.5 (3.6-5.0) mmol/L Chloride 114 H (98-107) mmol/L Carbon Dioxide 19 L (21-33) mmol/L Anion Gap 17 (10-20) BUN 100 H (7-21) mg/dL Creatinine 4.5 H (0.7-1.2) mg/dl Est GFR ( Amer) 12 Est GFR (Non-Af Amer) 10 POC Glucose (mg/dL) 332 H (65-110) mg/dL Random Glucose 254 H (70-110) mg/dL Calcium 8.0 L (8.4-10.5) mg/dL Phosphorus 4.4 (2.5-4.5) mg/dL Magnesium 2.0 (1.7-2.2) mg/dL Total Bilirubin 0.4 (0.2-1.3) mg/dL AST 40 H (14-36) U/L ALT 20 (7-56) U/L Alkaline Phosphatase 86 (38-126) U/L Total Protein 5.1 L (5.8-8.3) g/dL Albumin 2.4 L (3.0-4.8) g/dL Globulin 2.7 gm/dL Albumin/Globulin Ratio 0.9 L (1.1-1.8) Vancomycin Trough (5.0-10.0) ug/mL 09/13/17 09/13/17 09/13/17 Range/Units 17:16 12:04 09:47 WBC (4.5-11.0) 10^3/ul RBC (3.5-6.1) 10^6/uL Hgb (12.0-16.0) g/dL Hct (36.0-48.0) % MCV (80.0-105.0) fl MCH (25.0-35.0) pg MCHC (31.0-37.0) g/dl RDW (11.5-14.5) % Plt Count (120.0-450.0) 10^3/uL Gran % (50.0-68.0) % Lymph % (Auto) (22.0-35.0) % Cloud % (Auto) (1.0-6.0) % Eos % (Auto) (1.5-5.0) % Baso % (Auto) (0.0-3.0) % Gran # (1.4-6.5) Lymph # (Auto) (1.2-3.4) Cloud # (Auto) (0.1-0.6) Eos # (Auto) (0.0-0.7) Baso # (Auto) (0.0-2.0) K/mm3 Sodium (132-148) mmol/L Potassium (3.6-5.0) mmol/L Chloride (98-107) mmol/L Carbon Dioxide (21-33) mmol/L Anion Gap (10-20) BUN (7-21) mg/dL Creatinine (0.7-1.2) mg/dl Est GFR ( Amer) Est GFR (Non-Af Amer) POC Glucose (mg/dL) 313 H 311 H (65-110) mg/dL Random Glucose (70-110) mg/dL Calcium (8.4-10.5) mg/dL Phosphorus (2.5-4.5) mg/dL Magnesium (1.7-2.2) mg/dL Total Bilirubin (0.2-1.3) mg/dL AST (14-36) U/L ALT (7-56) U/L Alkaline Phosphatase (38-126) U/L Total Protein (5.8-8.3) g/dL Albumin (3.0-4.8) g/dL Globulin gm/dL Albumin/Globulin Ratio (1.1-1.8) Vancomycin Trough 16.8 H* (5.0-10.0) ug/mL Laboratory Results - last 24 hr 09/13/17 09/13/17 09/13/17 09:47 12:04 17:16 WBC RBC Hgb Hct MCV MCH MCHC RDW Plt Count Gran % Lymph % (Auto) Cloud % (Auto) Eos % (Auto) Baso % (Auto) Gran # Lymph # (Auto) Cloud # (Auto) Eos # (Auto) Baso # (Auto) Sodium Potassium Chloride Carbon Dioxide Anion Gap BUN Creatinine Est GFR ( Amer) Est GFR (Non-Af Amer) POC Glucose (mg/dL) 311 H 313 H Random Glucose Calcium Phosphorus Magnesium Total Bilirubin AST ALT Alkaline Phosphatase Total Protein Albumin Globulin Albumin/Globulin Ratio Vancomycin Trough 16.8 H* 09/14/17 09/14/17 09/14/17 06:25 06:25 11:26 WBC 13.7 H D RBC 3.12 L Hgb 8.3 L Hct 25.4 L MCV 81.4 MCH 26.6 MCHC 32.7 RDW 17.9 H Plt Count 94 L Gran % 76.7 H Lymph % (Auto) 11.8 L Cloud % (Auto) 9.6 H Eos % (Auto) 1.9 Baso % (Auto) 0.0 Gran # 10.54 H Lymph # (Auto) 1.6 Cloud # (Auto) 1.3 H Eos # (Auto) 0.3 Baso # (Auto) 0.00 Sodium 145 Potassium 4.5 Chloride 114 H Carbon Dioxide 19 L Anion Gap 17 BUN 100 H Creatinine 4.5 H Est GFR ( Amer) 12 Est GFR (Non-Af Amer) 10 POC Glucose (mg/dL) 332 H Random Glucose 254 H Calcium 8.0 L Phosphorus 4.4 Magnesium 2.0 Total Bilirubin 0.4 AST 40 H ALT 20 Alkaline Phosphatase 86 Total Protein 5.1 L Albumin 2.4 L Globulin 2.7 Albumin/Globulin Ratio 0.9 L Vancomycin Trough Critical Care Progress Note - Nutrition Nutrition: Nutrition Category Date Time Status NPO Diet [DIET] Diets 09/09/17 Breakfast Ordered Assessment/Plan - Assessment and Plan (Free Text) Plan: Patient seen and examined on rounds with resident, agree with note with following additions/exceptions: Patient is 72yo female with PMhx of dementia, Hypertension, DM2, hypothyroidism , sacral decubitus, recurrent falls, presented [place] s/p cardiac arrest, asystole, unknown downtime, intubated in the field, had another cardiac arrest in the hospital, asystole, ROSC obtained. Currently intubated, off sedation. Labs and imaging reviewed, shows diffuse bilateral infiltrates, ARDS resolved Pt remains OFF vasopressor support On exam does not overbreath the ventilator, no gag reflex, no corneal reflexes present, neurology following MRI brain done, shows diffuse anoxic brain injury Palliative care following, pt is DNR Overall prognosis is extremely poor. PNA ARDS, resolved Cardiac Arrest s/p ROSC Septic Shock, resolved Hypoxic resp failure Anoxic Brain Injury Recommend: - cont with vent support, low tidal ventilation - broad spectrum abx, as per ID - stress dose steroids taper - monitor HH - FS control - neurology follow up - monitor renal function, follow up renal - brain flow scan - GI ppx - DVT ppx - follow up palliative care - Overall prognosis poor, family meeting possibly today to discuss further goals of care - Monitor in MICU
--- NOTE | 2017-09-14 10:05 | CP.PCM.PN ---
Subjective - Date & Time of Evaluation Date of Evaluation: 09/14/17 Time of Evaluation: 07:45 - Subjective Subjective: PGY-1 Nephrology Progress Note for Dr. Cosby's service Patient seen and examined in ICU. Patient intubated and unable to provide responses. Patient lacks corneal and gag reflex. Patient is making minimal urine output about 25ml in urban bag. Patient non responsive to painful stimuli. Neuro imaging shows cerebral edema on CT and electrocerberal silence suggesting poor prognosis. No acute events overnight as per nursing. Objective - Vital Signs/Intake and Output Vital Signs (last 24 hours): Temp Pulse Resp BP Pulse Ox 99.7 F H 86 10 L 150/70 98 09/14/17 01:10 09/14/17 02:00 09/12/17 07:38 09/14/17 01:00 09/14/17 01:10 - Medications Medications: Current Medications Artificial Tears (Artificial Tears) 0 ml OU QID PRN PRN Reason: Dry eyes Last Admin: 09/14/17 09:17 Dose: 1 drop Aspirin (Aspirin Chewable) 81 mg PO DAILY [facility] Last Admin: 09/14/17 09:14 Dose: 81 mg Heparin Sodium (Porcine) (Heparin) 5,000 units SC Q12 N[facility] PRN Reason: Protocol Last Admin: 09/14/17 09:15 Dose: 5,000 units Meropenem 500 mg/ Sodium (Chloride) 50 mls @ 100 mls/hr IVPB Q12 N[facility] PRN Reason: Protocol Stop: 09/18/17 22:01 Last Admin: 09/14/17 09:16 Dose: 100 mls/hr Insulin Detemir (Levemir) 15 unit SC HS [facility] Last Admin: 09/14/17 00:18 Dose: 15 units Insulin Human Regular (Humulin R Med) 0 units SC Q6 NIDHI PRN Reason: Protocol Last Admin: 09/14/17 05:46 Dose: Not Given Nystatin (Nystop Topical Powder) 0 gm TOP Q8 PRN PRN Reason: Itching / Pruritus Last Admin: 09/11/17 12:37 Dose: 1 applic Pantoprazole Sodium (Protonix Inj) 40 mg IVP DAILY [facility] Last Admin: 09/14/17 09:17 Dose: 40 mg - Labs Labs: 09/14/17 06:25 09/14/17 06:25 PT 14.5 SECONDS (9.4-12.5) H 09/10/17 06:00 INR 1.26 (0.93-1.08) H 09/10/17 06:00 APTT 31.2 Seconds (25.1-36.5) 09/10/17 06:00 - Additional Findings Additional findings: - Head Exam Head Exam: ATRAUMATIC, NORMAL INSPECTION, NORMOCEPHALIC - Eye Exam Additional comments: Fixed without reaction to light - ENT Exam Additional comments: ET tube in place - Respiratory Exam Respiratory Exam: Clear to Ausculation Bilateral, NORMAL BREATHING PATTERN - Cardiovascular Exam Cardiovascular Exam: REGULAR RHYTHM, +S1, +S2 - GI/Abdominal Exam GI & Abdominal Exam: Soft, Normal Bowel Sounds - Exam : Urban inserted with 25ml output - Extremities Exam Extremities Exam: +2 pitting edema b/l - Neurological Exam Additional comments: GCS 3 Absent gag, cough, corneal reflex Pupils fixed non reactive to light No spontaneous movement of extremities noted on exam Assessment and Plan - Assessment and Plan (Free Text) Assessment: Patient is a 72 y.o. female whose past medical history includes hypertension, hyperlipidemia, Type 2 diabetes mellitus, hypothyroidism, and dementia, who presents to the Emergency department transferred from [facility] brought in by EMS status post cardiac arrest. EMS achieved ROSC before arrival to ED, however patient coded again in ED and required CPR/ACLS protocol. Patient is currently intubated with imaging showing cerebral edema. Nephrology consulted for elevated Creatinine levels from baseline. Plan: Acute Renal Failure -Cr 4.5; On admission was 1.8; Baseline is 1.3; -BUN trending up; BUN 100 -Worsening renal function with relatively stable electrolyte status; no need for emergent dialysis -Metabolic acidosis improving; Patient only requiring 50% FIO2 to maintain adequate oxygen saturation -Patient oliguric-anuric; Clinically consistent with ATN in setting of cardiac arrest and sepsis; 25 ml of urine in Urban bag currently; -Continue to monitor electrolytes and BUN/Cr -Patient has no neurologic response with poor overall prognosis; -MRI Brain(09/12/17): Showing diffuse global anoxia with marked cerebral and cerebellar edema with mass effect on the brainstem, infra tentorial herniation and obstructive hydrocephalus -EEG(09/12/17) with electrocerebral silence -D/C vanc due to elevated trough levels and nephrotoxic; Currently on meropenem -IVF dc'ed due to patient being volume overloaded and being anuric-oliguric. -Removed urban catheter today -Possible organ donor; will consider HD if necessary -Poor neuro prognosis but still awaiting further assessment; HD would be futile if there is no chance for meaningful neurologic recovery -Awaiting family discussion with ICU team scheduled for today Hypernatremia (Resolved) -Na 148; Improved after fluids -Fluids dc'ed as patient is volume overloaded -Patient sodium should stay stable as they are not able to make urine Metabolic Acidosis (Resolved) -per ABG ; pH 7.31; Acidosis improving with oxygen delivery increased to 50 FIO2 -Avoid sodium bicarb as this will add to volume overload Sepsis -Continue Meropenem; WBC 13.7; WBC Trending Down; Podiatry following -Avoid Vanc as levels are high and it is nephrotoxic; -Vanc trough 16.8 -[place] pyuria seen; Consider anti-fungal agent;
--- NOTE | 2017-09-14 10:12 | CP.PCM.PN ---
Subjective - Date & Time of Evaluation Date of Evaluation: 09/14/17 Time of Evaluation: 08:30 - Subjective Subjective: Continues to be on the ventilator, poorly responsive, no fevers overnight. Objective - Vital Signs/Intake and Output Vital Signs (last 24 hours): Temp Pulse Resp BP Pulse Ox 99.7 F H 86 10 L 150/70 98 09/14/17 01:10 09/14/17 02:00 09/12/17 07:38 09/14/17 01:00 09/14/17 01:10 - Medications Medications: Current Medications Aspirin (Aspirin Chewable) 81 mg PO DAILY [facility] Last Admin: 09/13/17 09:48 Dose: 81 mg Heparin Sodium (Porcine) (Heparin) 5,000 units SC Q12 NIDHI PRN Reason: Protocol Last Admin: 09/14/17 00:18 Dose: 5,000 units Hydrocortisone Sodium Succinate (Solu-Cortef) 50 mg IVP DAILY [facility] Last Admin: 09/13/17 09:48 Dose: 50 mg Meropenem 500 mg/ Sodium (Chloride) 50 mls @ 100 mls/hr IVPB Q12 NIDHI PRN Reason: Protocol Stop: 09/18/17 22:01 Last Admin: 09/14/17 00:18 Dose: 100 mls/hr Insulin Detemir (Levemir) 15 unit SC HS [facility] Last Admin: 09/14/17 00:18 Dose: 15 units Insulin Human Regular (Humulin R Med) 0 units SC Q6 NIDHI PRN Reason: Protocol Last Admin: 09/14/17 05:46 Dose: Not Given Nystatin (Nystop Topical Powder) 0 gm TOP Q8 PRN PRN Reason: Itching / Pruritus Last Admin: 09/11/17 12:37 Dose: 1 applic Pantoprazole Sodium (Protonix Inj) 40 mg IVP DAILY [facility] Last Admin: 09/13/17 09:48 Dose: 40 mg - Labs Labs: 09/14/17 06:25 09/14/17 06:25 PT 14.5 SECONDS (9.4-12.5) H 09/10/17 06:00 INR 1.26 (0.93-1.08) H 09/10/17 06:00 APTT 31.2 Seconds (25.1-36.5) 09/10/17 06:00 - Constitutional Appears: Other (intubated, poorly responsive) - Head Exam Head Exam: NORMAL INSPECTION - ENT Exam Additional comments: ET tube in place - Respiratory Exam Respiratory Exam: Decreased Breath Sounds - Cardiovascular Exam Cardiovascular Exam: +S1, +S2 - GI/Abdominal Exam GI & Abdominal Exam: Soft Assessment and Plan - Assessment and Plan (Free Text) Plan: Assessment Systemic Inflammatory response syndrome after cardiorespiratory arrest with VDRF , R/O severe sepsis from bilateral pneumonia history of right foot dry gangrene with ulceration DM HTN hyperthyroidism dementia Plan continue Vancomycin and Merrem day 5 to complete 4-7 days of therapy; PCT is only 0.1 Vanco trough was17.8 yesterday, still within the 15-20 target range - will check another level today overall prognosis is poor - as per nurse, family is thinking of terminal extubation would recommend to remove left groin TLC since it is unnecessary
--- NOTE | 2017-09-14 12:02 | PN ---
DATE: 09/14/2017 REASON FOR THE CONSULTATION AND FOLLOWUP: Cardiac evaluation and status post cardiac arrest, intubated, respiratory failure, vent dependent, possible anoxic encephalopathy. SUBJECTIVE: The patient remains on vent. No gag reflex. No pupillary reflex. Not in any apparent distress, being intubated. No spontaneous movement. No pharyngeal reflex. PHYSICAL EXAMINATION: VITAL SIGNS: Temperature afebrile, heart rate 86, blood pressure 150/70. HEENT: PERRLA. Extraocular muscles intact. NECK: Supple. No carotid bruit. No thyromegaly. CHEST: Clear to auscultation. HEART: S1 and S2 regular. ABDOMEN: Soft. EXTREMITIES: Clubbing and cyanosis negative. LABORATORY DATA: Blood workup as follows: WBC 13.7, hemoglobin 8.3, hematocrit 25.4, platelet count 94. Chemistry shows sodium 145, potassium 4.5, chloride 114, carbon dioxide 19, anion gap of 17, BUN 100, creatinine 4.5, total protein 5.1, albumin 2.4, albumin and globulin ratio 0.9. IMPRESSION: Status post cardiac arrest, status post cardiopulmonary resuscitation twice. The patient was found to be unresponsive at senior care. The cardiopulmonary resuscitation was done at the senior care and transferred to [place]. The patient had another round of cardiopulmonary resuscitation done at [facility]. Past history significant for diabetes, hypertension, hyperlipidemia. So far, no gag reflex, no spontaneous movement of extremity, no pupillary reflex. Possible anoxic encephalopathy. RECOMMENDATIONS: Continue vent management. If the patient wants everything to be done, strongly consider PEG and trach to prevent tracheal stenosis. Overall, the patient's condition is critical. Long-term prognosis is guarded. The patient's repeat echo done after this event day before yesterday shows ejection fraction of 50%, trace aortic regurgitation, trace mitral regurgitation, [id number] tricuspid regurgitation, RV systolic pressure 51, large left pleural effusion noticed, small pericardial effusion. Continue supportive care. Continue DVT prophylaxis. Continue aspirin. Continue antibiotic. As mentioned, strongly consider PEG and trach family wishes to continue on vent. Alayna Trent MD [facility] # [id number]
--- NOTE | 2017-09-14 13:29 | CP.PCM.PN ---
Subjective - Date & Time of Evaluation Date of Evaluation: 09/14/17 Time of Evaluation: 07:30 - Subjective Subjective: Ap Barfield PGY2 - Neurology Progress note for Dr. Hoyt Patient seen and examined this AM. No acute events reported overnight. Patient has friend at bedside. Patient continues to be unresponsive. Clinically unchanged. Objective - Vital Signs/Intake and Output Vital Signs (last 24 hours): Temp Pulse Resp BP Pulse Ox 97.3 F L 84 25 H 125/45 L 94 L 09/14/17 11:50 09/14/17 12:11 09/14/17 12:11 09/14/17 12:00 09/14/17 11:50 - Medications Medications: Current Medications Artificial Tears (Artificial Tears) 0 ml OU Q6 PRN PRN Reason: Dry eyes Aspirin (Aspirin Chewable) 81 mg PO DAILY [facility] Last Admin: 09/14/17 09:14 Dose: 81 mg Heparin Sodium (Porcine) (Heparin) 5,000 units SC Q12 NIDHI PRN Reason: Protocol Last Admin: 09/14/17 09:15 Dose: 5,000 units Meropenem 500 mg/ Sodium (Chloride) 50 mls @ 100 mls/hr IVPB Q12 NIDHI PRN Reason: Protocol Stop: 09/18/17 22:01 Last Admin: 09/14/17 09:16 Dose: 100 mls/hr Insulin Detemir (Levemir) 15 unit SC HS [facility] Last Admin: 09/14/17 00:18 Dose: 15 units Insulin Human Regular (Humulin R Med) 0 units SC Q6 NIDHI PRN Reason: Protocol Last Admin: 09/14/17 12:20 Dose: 7 units Nystatin (Nystop Topical Powder) 0 gm TOP Q8 PRN PRN Reason: Itching / Pruritus Last Admin: 09/11/17 12:37 Dose: 1 applic Pantoprazole Sodium (Protonix Inj) 40 mg IVP DAILY [facility] Last Admin: 09/14/17 09:17 Dose: 40 mg - Labs Labs: 09/14/17 06:25 09/14/17 06:25 PT 14.5 SECONDS (9.4-12.5) H 09/10/17 06:00 INR 1.26 (0.93-1.08) H 09/10/17 06:00 APTT 31.2 Seconds (25.1-36.5) 09/10/17 06:00 - Constitutional Appears: No Acute Distress - Head Exam Head Exam: ATRAUMATIC, NORMAL INSPECTION, NORMOCEPHALIC - Eye Exam Pupil Exam: Fixed. absent: PERRL - ENT Exam Additional comments: Et tube in place, absent cough, gag reflex - Neck Exam Neck Exam: Full ROM - Respiratory Exam Respiratory Exam: NORMAL BREATHING PATTERN Additional comments: Coarse breath sounds bilaterally - Cardiovascular Exam Cardiovascular Exam: REGULAR RHYTHM, +S1, +S2 - GI/Abdominal Exam GI & Abdominal Exam: Soft, Diminished Bowel Sounds Additional comments: OG tube feeding place - Extremities Exam Extremities Exam: Pedal Edema Additional comments: Anasarca present bilaterally - Neurological Exam Neurological Exam: absent: Alert, Awake, CN II-XII Intact Additional comments: GCS 3 Pupils fixed and dilated Absent cough, gag, corneal reflex Not overbreathing ventilator Cold caloric reflex test without response - Skin Skin Exam: Dry, Intact Assessment and Plan - Assessment and Plan (Free Text) Assessment: 71 year old female with past medical history of HTN, demenita, hypothyroidism, recurrent falls and recent history of syncope and anemia who presented to [facility] ED s/p cardiac arrest with unknown downtime. Patient currently has GCS of 3, off sedation and intubated. Patient continues to be unresponsive and clinically unchanged. Discussions with family and medical team ongoing for continued treatment plan Plan: Hypoxic brain injury - S/p cardiac arrest, unknown total down time - Head CT(09/09/17): showing signs of edema and with loss of jones white junction - Repeat Head CT: extensive edema involving both hemispheres, brainstem, and cerebellum, hypodenisty areas suggestive of stroke - MRI Brain(09/12/17): Showing diffuse global anoxia with marked cerebral and cerebellar edema with mass effect on the brainstem, infra tentorial herniation and obstructive hydrocephalus - Maintatin Euglycemia, replete lytes as needed - Maintatin SaO2>90% - Head above 30 degrees Deep Irreversible Coma(Brain ) - EEG(09/12/17) with electrocerebral silence - Cold Caloric test (09/14/17) without appropriate - Brain Flow ordered, f/u results - Patient with absent brainstem reflexes, ECG findings of electrocerebral silence, not over breathing the ventilator, absent response for cold caloric test, all concerning for brain . Will follow up results of brain flow nuclear medicine study in effort to fully assess patients brain function Patient was seen and examined and case was discussed with attending physician, Dr. Lai Barfield PGY-2
--- NOTE | 2017-09-14 14:08 | NM ---
Date of service: 09/14/2017 PROCEDURE: Nuclear medicine brain blood flow study HISTORY: anoxic encephalopathy, s/p cardiac arrest COMPARISON: TECHNIQUE: 21.6 mCi of technetium 99 M pertechnetate. Serial images and delayed images obtained. FINDINGS: There is absence of normal blood flow to the brain. Findings are consistent with anoxic encephalopathy. There is activity in the parotid glands and nasal cavity. Findings correlate with the CT dated 09/11/2017 in the MRI 09/12/2017 IMPRESSION: No evidence of intra cerebral blood flow
--- NOTE | 2017-09-14 14:19 | PN ---
DATE: 09/14/2017 PULMONARY PROGRESS NOTE REFERRING PHYSICIAN: Deisy Gilman MD. SUBJECTIVE: She is unresponsive, on ventilator. Overnight events noted. Being followed by Neurology. Head MRI, EEG, and brain protocol in progress. Not much ET tube secretion. No hemoptysis. No hematemesis. Does have a loose bowel movement, upper and lower extremity swelling. PHYSICAL EXAMINATION: GENERAL: On ventilator. VITAL SIGNS: Temperature is 99.7, heart rate is 86, respiratory rate is 14, blood pressure is 150/70, and pulse ox 95% on 50% oxygen on ventilator. HEENT: Moist mucous membranes. Crowded airway. ET tube, no secretion. Pupils are fixed and dilated. LUNGS: Have scattered rhonchi and few crackles. HEART: S1 and S2. ABDOMEN: Nondistended, soft. EXTREMITIES: Have edema in upper and lower extremities. NEUROLOGIC: Unresponsive. MEDICATIONS: She is on artificial tears to both eyes, aspirin 81 mg daily, heparin 5000 units subcu every 12 hours, insulin coverage, Levemir 15 units subcu at bedtime, meropenem 500 mg every 12 hours, nystatin every 8 hours p.r.n., and Protonix 40 mg daily. LABORATORY DATA: Shows hemoglobin 8.3, hematocrit 25.4, WBC 13.7, platelet is 94. Sodium 144, potassium 4.5, chloride 114, bicarbonate 19, BUN 100, creatinine 4.5, glucose 254, calcium 8, phosphorus 4.4, magnesium is 2. AST 40, ALT 20, alkaline phosphatase is 86, albumin is 2.4. IMPRESSION AND PLAN: Hypoxic brain injury, status post cardiopulmonary arrest, history of dementia, hypertension, diabetes, peripheral vascular disease, nonhealing heel ulcers, renal failure, had extended-spectrum beta-lactamase organism in the urine. Case discussed with the nursing staff. Being followed by Palliative Care, seen by Neurology. Brain protocol is in progress. Pulmonary point of view, I will keep present ventilator setting until [facility] is involved. Family is being informed with present findings. Continue present medications. Thank you and we will follow with you. Alayna Terry MD
--- NOTE | 2017-09-15 03:11 | PN ---
DATE: 09/14/2017 SUBJECTIVE: The patient is a 72-year-old female. Patient was seen and examined at the bedside on 09/14/2017. No change in the status, still intubated, unresponsive on the ventilator. Overnight events are noted. Being followed up by the neurologist. Head MRI, EEG and brain protocol in the progress. Scan was done to see the blood flow of the brain. secretion. No hemoptysis, no hematuria, hematochezia. Does have loose bowel movement. Upper extremity swelling. PHYSICAL EXAMINATION: VITAL SIGNS: Temperature 98.9, heart rate ____, respiratory rate 14, blood pressure 150/70, pulse oximetry 95% on 50% oxygen ventilation. HEENT: Head normocephalic, atraumatic. Eyes closed. Nose patent. Mucous membranes moist. NECK: Supple. No carotid bruits. No JVD or thyromegaly. LUNGS: Has scattered rhonchi and few crackles. HEART: S1, S2 positive. ABDOMEN: Soft, nontender, no organomegaly. EXTREMITIES: No edema. No cyanosis. NEUROLOGIC: The patient is awake, alert, moving all 4 extremities. No focal deficit. MEDICATIONS: Artificial tears, aspirin, heparin, insulin coverage, Levemir, meropenem, nystatin, Protonix. LABORATORY DATA: Hemoglobin 8.3, hematocrit 25.4, white blood cells 13.7, platelets 94. Sodium 144, potassium 3.8, BUN 100, creatinine 4.5, AST 40, ALT 20. ASSESSMENT AND PLAN: Ms. Tamy Abbott is a 72-year-old lady with hypoxic brain injury, status post cardiopulmonary arrest, history of dementia, hypertension, diabetes mellitus, hyperventilation, peripheral vascular disease, non-healing heel ulcers, renal failure, has extended-spectrum beta-lactamase organism in the urine. Case discussed with the nurse and son was standing on the bedside. Discussion done with family members. All questions answered. Gastrointestinal and deep venous thrombosis prophylaxis. Repeat labs. We will follow up. Deisy Gilman MD
[2017-09-15] MEDS: Insulin Reg-MEDIUM-Coverage SC SCH ×4 (06:00→17:56)
[2017-09-15 07:11] LABS: BASO # 0.01 K/mm3 (0.0-2.0); BASO % 0.1 % (0.0-3.0); EOS # 0.3 (0.0-0.7); EOS % 1.7 % (1.5-5.0); GRAN # 13.16 (1.4-6.5); GRAN % 80.5 % (50.0-68.0); HEMOGLOBIN 8.3 g/dL (12.0-16.0); LYMPH # 1.5 (1.2-3.4); LYMPH % 9.2 % (22.0-35.0); MEAN CELL VOLUME 80.8 fl (80.0-105.0); MEAN CORPUSCULAR HEMOGLOBIN 26.2 pg (25.0-35.0); MEAN CORPUSCULAR HGB CONC 32.4 g/dl (31.0-37.0); MONO # 1.4 (0.1-0.6); MONO % 8.5 % (1.0-6.0); PLATELET COUNT 98 10^3/uL (120.0-450.0); RBC 3.17 10^6/uL (3.5-6.1); RED CELL DISTRIBUTION WIDTH 17.5 % (11.5-14.5); WHITE BLOOD COUNT 16.3 10^3/ul (4.5-11.0)
[2017-09-15 07:19] LABS: ALB/GLOB RATIO 0.9 (1.1-1.8); ALBUMIN 2.5 g/dL (3.0-4.8); CALCIUM 8.1 mg/dL (8.4-10.5)
--- NOTE | 2017-09-15 09:12 | CP.PCM.PN ---
Subjective - Date & Time of Evaluation Date of Evaluation: 09/15/17 Time of Evaluation: 07:40 - Subjective Subjective: Mariya Luciano PGY-1 [facility] Nephrology Progress Note for Dr. Cosby's service Patient seen and examined at bedside. Patient still intubated. Patient family had discussion with ICU team for current condition of patient and a possible extubation is scheduled for tuesday. Patient lacks corneal and gag reflex. Patient does not respond to painful stimuli. Objective - Vital Signs/Intake and Output Vital Signs (last 24 hours): Temp Pulse Resp BP Pulse Ox 97.3 F L 78 24 137/62 99 09/15/17 08:20 09/15/17 08:20 09/15/17 07:04 09/15/17 08:00 09/15/17 08:20 Intake and Output: 09/15/17 09/15/17 06:59 18:59 Intake Total 640 Output Total 0 Balance 640 - Medications Medications: Current Medications Artificial Tears (Artificial Tears) 0 ml OU Q6 PRN PRN Reason: Dry eyes Aspirin (Aspirin Chewable) 81 mg PO DAILY [facility] Last Admin: 09/14/17 09:14 Dose: 81 mg Heparin Sodium (Porcine) (Heparin) 5,000 units SC Q12 NIDHI PRN Reason: Protocol Last Admin: 09/14/17 22:11 Dose: 5,000 units Meropenem 500 mg/ Sodium (Chloride) 50 mls @ 100 mls/hr IVPB Q12 NIDHI PRN Reason: Protocol Stop: 09/18/17 22:01 Last Admin: 09/14/17 22:10 Dose: 100 mls/hr Insulin Detemir (Levemir) 15 unit SC HS [facility] Last Admin: 09/14/17 23:00 Dose: 15 units Insulin Human Regular (Humulin R Med) 0 units SC Q6 NIDHI PRN Reason: Protocol Last Admin: 09/15/17 06:00 Dose: 3 units Nystatin (Nystop Topical Powder) 0 gm TOP Q8 PRN PRN Reason: Itching / Pruritus Last Admin: 09/11/17 12:37 Dose: 1 applic Pantoprazole Sodium (Protonix Inj) 40 mg IVP DAILY [facility] Last Admin: 09/14/17 09:17 Dose: 40 mg - Labs Labs: 09/15/17 06:30 09/15/17 06:30 PT 14.5 SECONDS (9.4-12.5) H 09/10/17 06:00 INR 1.26 (0.93-1.08) H 09/10/17 06:00 APTT 31.2 Seconds (25.1-36.5) 09/10/17 06:00 - Additional Findings Additional findings: - Head Exam Head Exam: ATRAUMATIC, NORMAL INSPECTION, NORMOCEPHALIC - Eye Exam Additional comments: Fixed without reaction to light - ENT Exam Additional comments: ET tube in place - Respiratory Exam Respiratory Exam: Clear to Ausculation Bilateral, NORMAL BREATHING PATTERN - Cardiovascular Exam Cardiovascular Exam: REGULAR RHYTHM, +S1, +S2 - GI/Abdominal Exam GI & Abdominal Exam: Soft, Normal Bowel Sounds - Exam : Padilla inserted with 25ml output - Extremities Exam Extremities Exam: +2 pitting edema b/l - Neurological Exam Additional comments: GCS 3 Absent gag, cough, corneal reflex Pupils fixed non reactive to light No spontaneous movement of extremities noted on exam Assessment and Plan - Assessment and Plan (Free Text) Assessment: Patient is a 72 y.o. female whose past medical history includes hypertension, hyperlipidemia, Type 2 diabetes mellitus, hypothyroidism, and dementia, who presents to the Emergency department transferred from [facility] brought in by EMS status post cardiac arrest. EMS achieved ROSC before arrival to ED, however patient coded again in ED and required CPR/ACLS protocol. Patient is currently intubated with imaging showing cerebral edema. Nephrology consulted for elevated Creatinine levels from baseline. Plan: Acute Renal Failure -Cr 4.9; On admission was 1.8; Baseline is 1.3; -BUN trending up; BUN 110 -Worsening renal function with relatively stable electrolyte status; no need for emergent dialysis -Metabolic acidosis improving; Patient only requiring 50% FIO2 to maintain adequate oxygen saturation -Patient oliguric-anuric; Clinically consistent with ATN in setting of cardiac arrest and sepsis; -Patient has no neurologic response with poor overall prognosis; -MRI Brain(09/12/17): Showing diffuse global anoxia with marked cerebral and cerebellar edema with mass effect on the brainstem, infra tentorial herniation and obstructive hydrocephalus -EEG(09/12/17) with electrocerebral silence -Brain flow (09/14/17) N/M showed no evidence of cerebral blood flow; poor prognosis -Possible organ donor; will consider HD if necessary -Family discussion occurred yesterday and today; terminal extubation on tuesday; Family states that mother did not want to be live like this Hypernatremia (Resolved) -Na 143; Improved after fluids -Fluids dc'ed as patient is volume overloaded -Patient sodium should stay stable as they are not able to make urine Metabolic Acidosis (Resolved) -per ABG ; pH 7.31; (09/12/17) Acidosis improving with oxygen delivery increased to 50 FIO2 -Avoid sodium bicarb as this will add to volume overload Sepsis -Continue Meropenem; WBC 16.3; Podiatry following -Avoid Vanc as levels are high and it is nephrotoxic; -Vanc trough 16.8 -[place] pyuria seen; Consider anti-fungal agent; Medical management discussed with epic manager, Dr. Cosby.
[2017-09-15] MEDS: Meropenem 500 MG in Sodium Chloride 0.9% 50 ML IVPB SCH ×2 (09:36→23:00)
[2017-09-15] MEDS: Aritificial Tears (15ml) OU PRN (09:52)
--- NOTE | 2017-09-15 09:54 | CP.CCUPN ---
<Donn Rocha - Last Filed: 09/15/17 11:07> CCU Subjective - Physician Review Subjective (Free Text): Donn Rocha, PGY1 ICU Critical Care Progress Note for Dr. Galdamez Patient was seen and examined at bedside this morning. Patient is stll intubated and on Low Tidal Volume Ventilation. ROS not obtained due to intubation. Padilla catheter was discontinued yesterday. Spoke to family yesterday afternoon about terminal extubation. Patient's son, daughter, and friends present at bedside. Son stated, "my mom is suffering and she would not want this. Her friend suffered the same way and she would not want to go through the same thing." Will meet with family today for final decision in regards to terminal extubation. CCU Objective - Vital Signs / Intake & Output Vital Signs (Last 4 hours): Vital Signs Temp Pulse Resp BP Pulse Ox 09/15/17 08:20 97.3 F L 78 99 09/15/17 08:10 97.5 F L 83 99 09/15/17 08:00 137/62 09/15/17 07:59 97.5 F L 80 100 09/15/17 07:50 97.7 F 80 100 09/15/17 07:40 97.7 F 80 99 09/15/17 07:30 97.7 F 80 99 09/15/17 07:20 97.7 F 79 100 09/15/17 07:10 97.7 F 79 100 09/15/17 07:04 24 100 09/15/17 07:00 136/56 L 09/15/17 06:59 97.9 F 80 99 09/15/17 06:50 97.9 F 80 99 09/15/17 06:40 98.1 F 80 99 09/15/17 06:30 98.1 F 99 09/15/17 06:20 98.1 F 09/15/17 06:10 98.1 F 81 96 09/15/17 06:00 98.1 F 82 158/75 H 97 09/15/17 05:50 97.9 F 80 97 Intake and Output (Last 8hrs): Intake & Output 09/14/17 09/15/17 09/15/17 22:59 06:59 14:59 Intake Total 690 640 Output Total 12 0 Balance 678 640 Weight 95.708 kg Intake: IV 50 Femoral 50 Tube Feeding 640 640 Output: Urine 12 0 Urethral (Padilla) 12 0 Other: # Bowel Movements 1 0 - Physical Exam Head: Positive for: Atraumatic, Normocephalic Pupils: Positive for: Non-Reactive, Other (dilated, +3 pupils both sides, No corneal reflex) Conjunctiva: Positive for: Normal Mouth: Positive for: Moist Mucous Membranes, Other (intubated, no gag reflex) Nose (External): Positive for: Other (NG tube in place) Respiratory/Chest: Positive for: Other (Coarse breath sound bilaterally). Negative for: Wheezes, Rales, Rhonchi Cardiovascular: Positive for: Regular Rate and Rhythm, Normal S1, S2. Negative for: Murmurs Abdomen: Positive for: Normal Bowel Sounds, Other (Obese) Back: Positive for: Normal Inspection Upper Extremity: Positive for: Normal Inspection. Negative for: Cyanosis, Edema Lower Extremity: Positive for: Edema (+3 Pitting edema), Other (L foot dressed by Dr. Anderson for diabetic ulcer) Neurological: Positive for: Other (Unresponsive). Negative for: GCS=15 (GCS 3) Skin: Positive for: Dry, Other (Anasarca ). Negative for: Warm (Upper and lower extremities cool to touch), Rashes - Medications Active Medications: Active Medications Generic Name Dose Route Start Last Admin Trade Name Freq PRN Reason Stop Dose Admin Artificial Tears 0 ml 09/14/17 10:04 Artificial Tears OU Q6 PRN Dry eyes Aspirin 81 mg 09/12/17 10:00 09/14/17 09:14 Aspirin Chewable PO 81 mg DAILY NIDHI Administration Heparin Sodium (Porcine) 5,000 units 09/09/17 22:00 09/14/17 22:11 Heparin SC 5,000 units Q12 NIDHI Administration Protocol Meropenem 500 mg/ Sodium 50 mls @ 100 mls/hr 09/09/17 22:00 09/14/17 22:10 Chloride IVPB 09/18/17 22:01 100 mls/hr Q12 NIDHI Administration Protocol Insulin Detemir 15 unit 09/13/17 22:00 09/14/17 23:00 Levemir SC 15 units HS NIDHI Administration Insulin Human Regular 0 units 09/09/17 12:00 09/15/17 06:00 Humulin R Med SC 3 units Q6 NIDHI Administration Protocol Nystatin 0 gm 09/09/17 13:29 09/11/17 12:37 Nystop Topical Powder TOP 1 applic Q8 PRN Administration Itching / Pruritus Pantoprazole Sodium 40 mg 09/09/17 10:00 09/14/17 09:17 Protonix Inj IVP 40 mg DAILY NIDHI Administration - Patient Studies Lab Studies: Microbiology Studies 09/09/17 06:30 Blood Culture - Final Blood NO GROWTH AFTER 5 DAYS Gram Stain - Final TEST NOT PERFORMED 09/09/17 06:30 Blood Culture - Final Blood NO GROWTH AFTER 5 DAYS Gram Stain - Final TEST NOT PERFORMED Lab Studies 09/15/17 09/15/17 09/15/17 Range/Units 06:30 06:30 05:56 WBC 16.3 H (4.5-11.0) 10^3/ul RBC 3.17 L (3.5-6.1) 10^6/uL Hgb 8.3 L (12.0-16.0) g/dL Hct 25.6 L (36.0-48.0) % MCV 80.8 (80.0-105.0) fl MCH 26.2 (25.0-35.0) pg MCHC 32.4 (31.0-37.0) g/dl RDW 17.5 H (11.5-14.5) % Plt Count 98 L (120.0-450.0) 10^3/uL Gran % 80.5 H (50.0-68.0) % Lymph % (Auto) 9.2 L (22.0-35.0) % [place] % (Auto) 8.5 H (1.0-6.0) % Eos % (Auto) 1.7 (1.5-5.0) % Baso % (Auto) 0.1 (0.0-3.0) % Gran # 13.16 H (1.4-6.5) Lymph # (Auto) 1.5 (1.2-3.4) [place] # (Auto) 1.4 H (0.1-0.6) Eos # (Auto) 0.3 (0.0-0.7) Baso # (Auto) 0.01 (0.0-2.0) K/mm3 Sodium 143 (132-148) mmol/L Potassium 4.8 (3.6-5.0) mmol/L Chloride 113 H (98-107) mmol/L Carbon Dioxide 18 L (21-33) mmol/L Anion Gap 17 (10-20) BUN 110 H (7-21) mg/dL Creatinine 4.9 H (0.7-1.2) mg/dl Est GFR ( Amer) 11 Est GFR (Non-Af Amer) 9 POC Glucose (mg/dL) 244 H (65-110) mg/dL Random Glucose 229 H (70-110) mg/dL Calcium 8.1 L (8.4-10.5) mg/dL Phosphorus 5.1 H (2.5-4.5) mg/dL Magnesium 2.1 (1.7-2.2) mg/dL Total Bilirubin 0.4 (0.2-1.3) mg/dL AST 40 H (14-36) U/L ALT 24 (7-56) U/L Alkaline Phosphatase 90 (38-126) U/L Total Protein 5.3 L (5.8-8.3) g/dL Albumin 2.5 L (3.0-4.8) g/dL Globulin 2.8 gm/dL Albumin/Globulin Ratio 0.9 L (1.1-1.8) 09/14/17 09/14/17 09/14/17 Range/Units 23:53 18:00 11:26 WBC (4.5-11.0) 10^3/ul RBC (3.5-6.1) 10^6/uL Hgb (12.0-16.0) g/dL Hct (36.0-48.0) % MCV (80.0-105.0) fl MCH (25.0-35.0) pg MCHC (31.0-37.0) g/dl RDW (11.5-14.5) % Plt Count (120.0-450.0) 10^3/uL Gran % (50.0-68.0) % Lymph % (Auto) (22.0-35.0) % [place] % (Auto) (1.0-6.0) % Eos % (Auto) (1.5-5.0) % Baso % (Auto) (0.0-3.0) % Gran # (1.4-6.5) Lymph # (Auto) (1.2-3.4) [place] # (Auto) (0.1-0.6) Eos # (Auto) (0.0-0.7) Baso # (Auto) (0.0-2.0) K/mm3 Sodium (132-148) mmol/L Potassium (3.6-5.0) mmol/L Chloride (98-107) mmol/L Carbon Dioxide (21-33) mmol/L Anion Gap (10-20) BUN (7-21) mg/dL Creatinine (0.7-1.2) mg/dl Est GFR ( Amer) Est GFR (Non-Af Amer) POC Glucose (mg/dL) 271 H 290 H 332 H (65-110) mg/dL Random Glucose (70-110) mg/dL Calcium (8.4-10.5) mg/dL Phosphorus (2.5-4.5) mg/dL Magnesium (1.7-2.2) mg/dL Total Bilirubin (0.2-1.3) mg/dL AST (14-36) U/L ALT (7-56) U/L Alkaline Phosphatase (38-126) U/L Total Protein (5.8-8.3) g/dL Albumin (3.0-4.8) g/dL Globulin gm/dL Albumin/Globulin Ratio (1.1-1.8) Laboratory Results - last 24 hr 09/14/17 09/14/17 09/14/17 11:26 18:00 23:53 WBC RBC Hgb Hct MCV MCH MCHC RDW Plt Count Gran % Lymph % (Auto) [place] % (Auto) Eos % (Auto) Baso % (Auto) Gran # Lymph # (Auto) [place] # (Auto) Eos # (Auto) Baso # (Auto) Sodium Potassium Chloride Carbon Dioxide Anion Gap BUN Creatinine Est GFR ( Amer) Est GFR (Non-Af Amer) POC Glucose (mg/dL) 332 H 290 H 271 H Random Glucose Calcium Phosphorus Magnesium Total Bilirubin AST ALT Alkaline Phosphatase Total Protein Albumin Globulin Albumin/Globulin Ratio 09/15/17 09/15/17 09/15/17 05:56 06:30 06:30 WBC 16.3 H RBC 3.17 L Hgb 8.3 L Hct 25.6 L MCV 80.8 MCH 26.2 MCHC 32.4 RDW 17.5 H Plt Count 98 L Gran % 80.5 H Lymph % (Auto) 9.2 L [place] % (Auto) 8.5 H Eos % (Auto) 1.7 Baso % (Auto) 0.1 Gran # 13.16 H Lymph # (Auto) 1.5 [place] # (Auto) 1.4 H Eos # (Auto) 0.3 Baso # (Auto) 0.01 Sodium 143 Potassium 4.8 Chloride 113 H Carbon Dioxide 18 L Anion Gap 17 BUN 110 H Creatinine 4.9 H Est GFR ( Amer) 11 Est GFR (Non-Af Amer) 9 POC Glucose (mg/dL) 244 H Random Glucose 229 H Calcium 8.1 L Phosphorus 5.1 H Magnesium 2.1 Total Bilirubin 0.4 AST 40 H ALT 24 Alkaline Phosphatase 90 Total Protein 5.3 L Albumin 2.5 L Globulin 2.8 Albumin/Globulin Ratio 0.9 L Fingerstick Blood Sugar Results: 221 Review of Systems - Review of Systems Systems not reviewed;Unavailable: Intubated Critical Care Progress Note - Ventilator Checklist Head of Bed 30 Degrees: Yes Daily Sedation Vacation: Yes Daily Assessment of Readiness to Wean: Yes Daily Spontaneous Breathing Trial: Yes PUD Prophalyxis: Yes DVT Prophylaxis: Yes Oral Care with Chlorhexidine Gluconate {CHG}: Yes - Vent Settings MODE:: PRVC TIDAL VOLUME:: 380 RESP RATE:: 25 FIO2:: 50 PEEP:: 7 - Extremities/Vascular Does the Patient have a Central Venous Catheter?: Yes Insertion Site: Femoral Vein Does the Patient need a Central Venous Catheter?: Yes Does the Patient have a Padilla Catheter?: No Does the Patient need a Padilla Catheter?: No (Anuric. Plan for terminal extubation. ) - Prophylaxis GI Prophylaxis GI: PPI - Prophylaxis DVT Prophylaxis DVT: Heparin SQ - Nutrition Nutrition: Nutrition Category Date Time Status NPO Diet [DIET] Diets 09/09/17 Breakfast Ordered Assessment/Plan - Assessment and Plan (Free Text) Assessment: 72 y/o Female with a PMH of HTN, DM2, hypothyroidism, sacral decubitus, and recurrent falls who presents from [facility] after being found unresponsive (downtime unknown), with no pulses and in asystole. ACLS was initiated and ROSC obtained (please see ED notes and ICU consult note for further information). She was transferred to ICU for further management. Patient initially required pressors for BP support but is off now. Started on low tidal volume ventilation (LTVV) strategy for ARDS. Sedation and paralytic agents (Nimbex) were used but are off now. Neuro consulted and CT head showed anoxic encephalopathy. MRI brain showed global anoxic injury with infra- tentorial herniation at brainstem with mass effect. Brain flow study showed no intracerebral blood flow, further confirming brain . On exam, patient has absent pupillary, corneal, and gag reflex. Overall patient prognosis is very poor and she was declared DNR by family. Palliative care is following. Discussed with family about terminal extubation and awaiting their final decision. Plan: Neuro: - MRI Brain (09/13): global anoxic injury with infra-tentorial herniation at brainstem with mass effect. - CT head (09/11): anoxic encephalopathy - Neurology is consulted, recs appreciated - Negative cold water caloric stimulation test (09/14) - Brain Flow Study (09/14): no evidence of intracerebral blood flow Cardio: - Cardio is consulted, recs appreciated - BP managed: patient off pressors - Echo (09/10): LV normal size, mild concentric LV hypertrophy, EF 50%, trace aortic and mitral regurgitation. Large left pleural effusion and small pericardial effusion. No vegetation or thrombus. Pulm: - ET tube in place: discussed with family regarding terminal extubation - CT of chest showed extensive bilateral airspace disease with air bronchograms consistent with bilateral lobar pneumonia - Low tidal volume ventilation with TV 380, RR 25, FiO2 50%, PEEP 7 GI: - CT abdomen/pelvis showed distended gallbladder, moderate small bowel thickening and anasarca - NPO - GI ppx Renal: - d/c rajni (09/14) - Worsening renal function: trending upwards BUN/Cr - No dialysis, as per Nephrology : - History of ESBL ID - Downtrending WBC - ID is consulted, recs appreciated - Continue antibiotics per ID: [email or web address], day #7 - Vancomycin is given based on trough level by ID - History of ESBL: maintain contact precautions, c/w antibiotics Heme - Leukocytosis is noted, with no bandemia - DVT ppx Endo - Hyperglycemia: started on Levemir and c/w ISS - Maintain euglycemia - ISS and Accuchecks Q6 Dispo: Pending family's final decision today in regards to terminal extubation. Case was reviewed and discussed with attending Physician Dr. Galdamez <Germain Galdamez - Last Filed: 09/15/17 11:32> CCU Objective - Vital Signs / Intake & Output Vital Signs (Last 4 hours): Vital Signs Temp Pulse BP Pulse Ox 09/15/17 08:20 97.3 F L 78 99 09/15/17 08:10 97.5 F L 83 99 09/15/17 08:00 137/62 09/15/17 07:59 97.5 F L 80 100 09/15/17 07:50 97.7 F 80 100 09/15/17 07:40 97.7 F 80 99 09/15/17 07:30 97.7 F 80 99 Intake and Output (Last 8hrs): Intake & Output 09/14/17 09/15/17 09/15/17 22:59 06:59 14:59 Intake Total 690 640 Output Total 12 0 Balance 678 640 Weight 211 lb Intake: IV 50 Femoral 50 Tube Feeding 640 640 Output: Urine 12 0 Urethral (Padilla) 12 0 Other: # Bowel Movements 1 0 - Medications Active Medications: Active Medications Generic Name Dose Route Start Last Admin Trade Name Freq PRN Reason Stop Dose Admin Artificial Tears 0 ml 09/14/17 10:04 09/15/17 09:52 Artificial Tears OU 1 unit Q6 PRN Administration Dry eyes Aspirin 81 mg 09/12/17 10:00 09/15/17 09:35 Aspirin Chewable PO 81 mg DAILY NIDHI Administration Heparin Sodium (Porcine) 5,000 units 09/09/17 22:00 09/15/17 09:36 Heparin SC 5,000 units Q12 NIDHI Administration Protocol Meropenem 500 mg/ Sodium 50 mls @ 100 mls/hr 09/09/17 22:00 09/15/17 09:36 Chloride IVPB 09/18/17 22:01 100 mls/hr Q12 NIDHI Administration Protocol Insulin Detemir 15 unit 09/13/17 22:00 09/14/17 23:00 Levemir SC 15 units HS NIDHI Administration Insulin Human Regular 0 units 09/09/17 12:00 09/15/17 06:00 Humulin R Med SC 3 units Q6 NIDHI Administration Protocol Nystatin 0 gm 09/09/17 13:29 09/11/17 12:37 Nystop Topical Powder TOP 1 applic Q8 PRN Administration Itching / Pruritus Pantoprazole Sodium 40 mg 09/09/17 10:00 09/15/17 09:36 Protonix Inj IVP 40 mg DAILY NIDHI Administration - Patient Studies Lab Studies: Microbiology Studies 09/09/17 06:30 Blood Culture - Final Blood NO GROWTH AFTER 5 DAYS Gram Stain - Final TEST NOT PERFORMED 09/09/17 06:30 Blood Culture - Final Blood NO GROWTH AFTER 5 DAYS Gram Stain - Final TEST NOT PERFORMED Lab Studies 09/15/17 09/15/17 09/15/17 Range/Units 06:30 06:30 05:56 WBC 16.3 H (4.5-11.0) 10^3/ul RBC 3.17 L (3.5-6.1) 10^6/uL Hgb 8.3 L (12.0-16.0) g/dL Hct 25.6 L (36.0-48.0) % MCV 80.8 (80.0-105.0) fl MCH 26.2 (25.0-35.0) pg MCHC 32.4 (31.0-37.0) g/dl RDW 17.5 H (11.5-14.5) % Plt Count 98 L (120.0-450.0) 10^3/uL Gran % 80.5 H (50.0-68.0) % Lymph % (Auto) 9.2 L (22.0-35.0) % [place] % (Auto) 8.5 H (1.0-6.0) % Eos % (Auto) 1.7 (1.5-5.0) % Baso % (Auto) 0.1 (0.0-3.0) % Gran # 13.16 H (1.4-6.5) Lymph # (Auto) 1.5 (1.2-3.4) [place] # (Auto) 1.4 H (0.1-0.6) Eos # (Auto) 0.3 (0.0-0.7) Baso # (Auto) 0.01 (0.0-2.0) K/mm3 Sodium 143 (132-148) mmol/L Potassium 4.8 (3.6-5.0) mmol/L Chloride 113 H (98-107) mmol/L Carbon Dioxide 18 L (21-33) mmol/L Anion Gap 17 (10-20) BUN 110 H (7-21) mg/dL Creatinine 4.9 H (0.7-1.2) mg/dl Est GFR ( Amer) 11 Est GFR (Non-Af Amer) 9 POC Glucose (mg/dL) 244 H (65-110) mg/dL Random Glucose 229 H (70-110) mg/dL Calcium 8.1 L (8.4-10.5) mg/dL Phosphorus 5.1 H (2.5-4.5) mg/dL Magnesium 2.1 (1.7-2.2) mg/dL Total Bilirubin 0.4 (0.2-1.3) mg/dL AST 40 H (14-36) U/L ALT 24 (7-56) U/L Alkaline Phosphatase 90 (38-126) U/L Total Protein 5.3 L (5.8-8.3) g/dL Albumin 2.5 L (3.0-4.8) g/dL Globulin 2.8 gm/dL Albumin/Globulin Ratio 0.9 L (1.1-1.8) 09/14/17 09/14/17 09/14/17 Range/Units 23:53 18:00 11:26 WBC (4.5-11.0) 10^3/ul RBC (3.5-6.1) 10^6/uL Hgb (12.0-16.0) g/dL Hct (36.0-48.0) % MCV (80.0-105.0) fl MCH (25.0-35.0) pg MCHC (31.0-37.0) g/dl RDW (11.5-14.5) % Plt Count (120.0-450.0) 10^3/uL Gran % (50.0-68.0) % Lymph % (Auto) (22.0-35.0) % [place] % (Auto) (1.0-6.0) % Eos % (Auto) (1.5-5.0) % Baso % (Auto) (0.0-3.0) % Gran # (1.4-6.5) Lymph # (Auto) (1.2-3.4) [place] # (Auto) (0.1-0.6) Eos # (Auto) (0.0-0.7) Baso # (Auto) (0.0-2.0) K/mm3 Sodium (132-148) mmol/L Potassium (3.6-5.0) mmol/L Chloride (98-107) mmol/L Carbon Dioxide (21-33) mmol/L Anion Gap (10-20) BUN (7-21) mg/dL Creatinine (0.7-1.2) mg/dl Est GFR ( Amer) Est GFR (Non-Af Amer) POC Glucose (mg/dL) 271 H 290 H 332 H (65-110) mg/dL Random Glucose (70-110) mg/dL Calcium (8.4-10.5) mg/dL Phosphorus (2.5-4.5) mg/dL Magnesium (1.7-2.2) mg/dL Total Bilirubin (0.2-1.3) mg/dL AST (14-36) U/L ALT (7-56) U/L Alkaline Phosphatase (38-126) U/L Total Protein (5.8-8.3) g/dL Albumin (3.0-4.8) g/dL Globulin gm/dL Albumin/Globulin Ratio (1.1-1.8) Laboratory Results - last 24 hr 09/14/17 09/14/17 09/14/17 11:26 18:00 23:53 WBC RBC Hgb Hct MCV MCH MCHC RDW Plt Count Gran % Lymph % (Auto) [place] % (Auto) Eos % (Auto) Baso % (Auto) Gran # Lymph # (Auto) [place] # (Auto) Eos # (Auto) Baso # (Auto) Sodium Potassium Chloride Carbon Dioxide Anion Gap BUN Creatinine Est GFR ( Amer) Est GFR (Non-Af Amer) POC Glucose (mg/dL) 332 H 290 H 271 H Random Glucose Calcium Phosphorus Magnesium Total Bilirubin AST ALT Alkaline Phosphatase Total Protein Albumin Globulin Albumin/Globulin Ratio 09/15/17 09/15/17 09/15/17 05:56 06:30 06:30 WBC 16.3 H RBC 3.17 L Hgb 8.3 L Hct 25.6 L MCV 80.8 MCH 26.2 MCHC 32.4 RDW 17.5 H Plt Count 98 L Gran % 80.5 H Lymph % (Auto) 9.2 L [place] % (Auto) 8.5 H Eos % (Auto) 1.7 Baso % (Auto) 0.1 Gran # 13.16 H Lymph # (Auto) 1.5 [place] # (Auto) 1.4 H Eos # (Auto) 0.3 Baso # (Auto) 0.01 Sodium 143 Potassium 4.8 Chloride 113 H Carbon Dioxide 18 L Anion Gap 17 BUN 110 H Creatinine 4.9 H Est GFR ( Amer) 11 Est GFR (Non-Af Amer) 9 POC Glucose (mg/dL) 244 H Random Glucose 229 H Calcium 8.1 L Phosphorus 5.1 H Magnesium 2.1 Total Bilirubin 0.4 AST 40 H ALT 24 Alkaline Phosphatase 90 Total Protein 5.3 L Albumin 2.5 L Globulin 2.8 Albumin/Globulin Ratio 0.9 L Critical Care Progress Note - Nutrition Nutrition: Nutrition Category Date Time Status NPO Diet [DIET] Diets 09/09/17 Breakfast Ordered Assessment/Plan - Assessment and Plan (Free Text) Plan: Patient seen and examined on rounds with resident, agree with note with following additions/exceptions: Patient is 72yo female with PMhx of dementia, Hypertension, DM2, hypothyroidism , sacral decubitus, recurrent falls, presented from [place] s/p cardiac arrest, asystole, unknown downtime, intubated in the field, had another cardiac arrest in the hospital, asystole, ROSC obtained. Currently intubated, off sedation. On exam does not overbreath the ventilator, no gag reflex, no corneal reflexes present, neurology following MRI brain done, shows diffuse anoxic brain injury Brain flow study completed, no flow noted Palliative care following, pt is DNR Overall prognosis is extremely poor. I spoke to the patients son, Josh and daughter Obdulia yesterday extensively and explained to the clinical situation and reviewed all pertinent data with them, the informed me that the patient never wanted to be intubated on pressors, have trach/peg, and would likely proceed with terminal extubation. Palliative care spoke to the family again today, who reported that they will proceed with terminal extubation today.
--- NOTE | 2017-09-15 09:59 | CP.PCM.PN ---
Subjective - Date & Time of Evaluation Date of Evaluation: 09/15/17 Time of Evaluation: 08:20 - Subjective Subjective: Continues to be on the ventilator, poorly responsive, no fevers overnight. Objective - Vital Signs/Intake and Output Vital Signs (last 24 hours): Temp Pulse Resp BP Pulse Ox 97.7 F 79 25 H 157/79 H 97 09/15/17 05:30 09/15/17 05:30 09/14/17 13:04 09/15/17 05:00 09/15/17 05:30 Intake and Output: 09/14/17 09/15/17 18:59 06:59 Intake Total 690 Output Total 12 Balance 678 - Medications Medications: Current Medications Artificial Tears (Artificial Tears) 0 ml OU Q6 PRN PRN Reason: Dry eyes Aspirin (Aspirin Chewable) 81 mg PO DAILY [facility] Last Admin: 09/14/17 09:14 Dose: 81 mg Heparin Sodium (Porcine) (Heparin) 5,000 units SC Q12 NIDHI PRN Reason: Protocol Last Admin: 09/14/17 22:11 Dose: 5,000 units Meropenem 500 mg/ Sodium (Chloride) 50 mls @ 100 mls/hr IVPB Q12 NIDHI PRN Reason: Protocol Stop: 09/18/17 22:01 Last Admin: 09/14/17 22:10 Dose: 100 mls/hr Insulin Detemir (Levemir) 15 unit SC HS [facility] Last Admin: 09/14/17 23:00 Dose: 15 units Insulin Human Regular (Humulin R Med) 0 units SC Q6 NIDHI PRN Reason: Protocol Last Admin: 09/14/17 18:54 Dose: 5 units Nystatin (Nystop Topical Powder) 0 gm TOP Q8 PRN PRN Reason: Itching / Pruritus Last Admin: 09/11/17 12:37 Dose: 1 applic Pantoprazole Sodium (Protonix Inj) 40 mg IVP DAILY [facility] Last Admin: 09/14/17 09:17 Dose: 40 mg - Labs Labs: 09/14/17 06:25 09/14/17 06:25 PT 14.5 SECONDS (9.4-12.5) H 09/10/17 06:00 INR 1.26 (0.93-1.08) H 09/10/17 06:00 APTT 31.2 Seconds (25.1-36.5) 09/10/17 06:00 - Constitutional Appears: Chronically Ill, Other (intubated, poorly responsive) - Head Exam Head Exam: NORMAL INSPECTION - ENT Exam Additional comments: ET tube in place - Respiratory Exam Respiratory Exam: Decreased Breath Sounds - Cardiovascular Exam Cardiovascular Exam: +S1, +S2 - GI/Abdominal Exam GI & Abdominal Exam: Soft. absent: Tenderness Assessment and Plan - Assessment and Plan (Free Text) Plan: Assessment Systemic Inflammatory response syndrome after cardiorespiratory arrest with VDRF , R/O severe sepsis from bilateral pneumonia history of right foot dry gangrene with ulceration DM HTN hyperthyroidism dementia obesity with BMI 34 Plan on intermittent Vancomycin and Merrem day 6 to complete 4-7 days of therapy; PCT is only 0.1 - will d/c antibiotics today overall prognosis is poor - as per nurse, patient is for terminal extubation would recommend to remove left groin TLC since it is unnecessary
--- NOTE | 2017-09-15 11:16 | CP.PCM.PN ---
Subjective - Date & Time of Evaluation Date of Evaluation: 09/15/17 Time of Evaluation: 11:00 - Subjective Subjective: No gag/pupil reflex, not breathing over vent, unresponsive, not sedated,GCS 3> Objective - Vital Signs/Intake and Output Vital Signs (last 24 hours): Temp Pulse Resp BP Pulse Ox 97.3 F L 78 24 137/62 99 09/15/17 08:20 09/15/17 08:20 09/15/17 07:04 09/15/17 08:00 09/15/17 08:20 Intake and Output: 09/15/17 09/15/17 06:59 18:59 Intake Total 640 Output Total 0 Balance 640 - Medications Medications: Current Medications Artificial Tears (Artificial Tears) 0 ml OU Q6 PRN PRN Reason: Dry eyes Last Admin: 09/15/17 09:52 Dose: 1 unit Aspirin (Aspirin Chewable) 81 mg PO DAILY [facility] Last Admin: 09/15/17 09:35 Dose: 81 mg Heparin Sodium (Porcine) (Heparin) 5,000 units SC Q12 NIDHI PRN Reason: Protocol Last Admin: 09/15/17 09:36 Dose: 5,000 units Meropenem 500 mg/ Sodium (Chloride) 50 mls @ 100 mls/hr IVPB Q12 NIDHI PRN Reason: Protocol Stop: 09/18/17 22:01 Last Admin: 09/15/17 09:36 Dose: 100 mls/hr Insulin Detemir (Levemir) 15 unit SC HS [facility] Last Admin: 09/14/17 23:00 Dose: 15 units Insulin Human Regular (Humulin R Med) 0 units SC Q6 NIDHI PRN Reason: Protocol Last Admin: 09/15/17 06:00 Dose: 3 units Nystatin (Nystop Topical Powder) 0 gm TOP Q8 PRN PRN Reason: Itching / Pruritus Last Admin: 09/11/17 12:37 Dose: 1 applic Pantoprazole Sodium (Protonix Inj) 40 mg IVP DAILY [facility] Last Admin: 09/15/17 09:36 Dose: 40 mg - Labs Labs: 09/15/17 06:30 09/15/17 06:30 PT 14.5 SECONDS (9.4-12.5) H 09/10/17 06:00 INR 1.26 (0.93-1.08) H 09/10/17 06:00 APTT 31.2 Seconds (25.1-36.5) 09/10/17 06:00 - Constitutional Appears: Chronically Ill - Head Exam Head Exam: NORMOCEPHALIC - Eye Exam Pupil Exam: Fixed - ENT Exam ENT Exam: Mucous Membranes Moist - Respiratory Exam Respiratory Exam: Decreased Breath Sounds - Cardiovascular Exam Cardiovascular Exam: REGULAR RHYTHM, +S1, +S2 - GI/Abdominal Exam GI & Abdominal Exam: Soft, Hypoactive Bowel Sounds - Extremities Exam Additional comments: edematous - Neurological Exam Additional comments: brain - Skin Skin Exam: Dry, Warm Assessment and Plan - Assessment and Plan (Free Text) Assessment: 72 year old female with history of HTN, COPD who was admitted s/p cardiopulmonary arrest, SHANTEL,respiratory failure. GCS 3. Neurological testing/ studies have determined that there is brain ( see neuro notes). [facility] evaluated patient and determent she is not a candidate for organ donation. Patient's family met with user experience developer yesterday. Family aware that patient has not blood flow to brain and other neurological studies/test all consistent with brain . Family indicated that they underhand and indicated that they would discuss terminal extubation . I spoke with patients son Josh via phone this morning to follow up and offer palliative support. Josh indicated that family would proceed with terminal extubation today. Terminal extubation process examined to Josh. Questions answered. Josh appreciative of my call and indicated that he and his family would be in later today. Psychosocial support /end of life counseling provided. Pastoral support offered but declined at this time. Plan: Psychosocial support. End of life counseling
--- NOTE | 2017-09-15 19:19 | PN ---
DATE: 09/15/2017 REASON FOR CONSULTATION: Cardiac evaluation, status post cardiac arrest, intubated, respiratory failure, vent dependent, possible anoxic encephalopathy. SUBJECTIVE: The patient remains on vent. PHYSICAL EXAMINATION: GENERAL: No pharyngeal or gag reflex, no pupillary reflex. VITAL SIGNS: Temperature afebrile, heart rate 78, blood pressure 132/62. HEENT: PERRLA. Extraocular muscles intact. NECK: Supple. No carotid bruit. No thyromegaly. CHEST: Clear to auscultation. HEART: S1 and S2 regular. ABDOMEN: Soft. EXTREMITIES: Clubbing and cyanosis negative. LABORATORY DATA: Blood workup as follows: WBC , hemoglobin 8.3, hematocrit 25.6, and platelet count 98. Sodium 140, potassium 4.8, chloride 113, carbon dioxide 18, BUN , creatinine 4.9. IMPRESSION: Status post cardiac arrest, multiorgan dysfunction, kidney injury, possible anoxic encephalopathy, diabetes, hypertension, hyperlipidemia. Brain fluid study, no evidence of intracerebral blood flow. Possible anoxic encephalopathy. The patient had echo done yesterday shows 50% of EF, trace regurgitation, trace mitral regurgitation, [id number] tricuspid regurgitation, RV systolic pressure 51, large left pleural effusion. RECOMMENDATIONS: Continue supportive care. Code status DNR. Paula Guadarrama discussing with terminal extubation. Recovery appears to be very poor. We will sign off and glad to follow p.r.n. Thank you, Dr. Gilman, for providing us the opportunity in taking care of the patient, Tamy Abbott. Alayna Trent MD
--- NOTE | 2017-09-15 22:00 | PN ---
DATE: 09/15/2017 PULMONARY PROGRESS NOTE REFERRING PHYSICIAN: Deisy Gilman MD. SUBJECTIVE: She is unresponsive on ventilator. Not much ET tube secretion. No vomiting. No hematuria. No diarrhea. Does have a leg swelling. OBJECTIVE: GENERAL: Unresponsive, on ventilator. VITAL SIGNS: Afebrile, heart rate is 75, respiratory rate is 12, blood pressure 109/48, pulse ox 97% on ventilator. HEENT: Moist mucous membrane. ET tube, no secretion. NECK: Supple. No JVD. LUNGS: Have a fair airflow with rhonchi and crackles. HEART: S1 and S2. ABDOMEN: Nondistended, soft. EXTREMITIES: Does have edema. NEUROLOGICAL: Unresponsive. MEDICATIONS: She is on artificial tears to both eyes every 6 hours, aspirin 81 mg daily, heparin 5000 units subcu every 12 hours, insulin coverage, Levemir 15 units subcu at bedtime, meropenem 500 mg every 12 hours, Protonix 40 mg daily. LABORATORY DATA: Shows hemoglobin 8.3, hematocrit 25.6, WBC 16.3, platelet count is 98. Sodium 143, potassium 4.8, chloride 113, bicarbonate 18, BUN 110, creatinine 4.9, glucose 229, calcium 8.1, phosphorus 5.1, magnesium 2.1, AST 40, ALT 24, alk phos is 90, albumin is 2.5. ASSESSMENT AND PLAN: Hypoxic brain injury, status post cardiopulmonary arrest, history of dementia, hypertension, diabetes, peripheral vascular disease, nonhealing heal ulcers, urinary tract infection with extended-spectrum beta-lactamase, on antibiotics. The patient is DNR and DNI. Brain protocol procedure is in progress. Seen by brim setter and Neurology. Awaiting for the family for discontinuing the ventilator. Thank you and we will follow with you. Alayna Terry MD
[2017-09-15] MEDS: Insulin Detemir 100 units/ml Vial (Levemir) SC SCH (23:00)
[2017-09-16] MEDS: Insulin Reg-MEDIUM-Coverage SC SCH ×3 (00:20→11:56)
--- NOTE | 2017-09-16 03:34 | PN ---
DATE: 09/15/2017 SUBJECTIVE: Patient is a 72-year-old female. Patient was seen and examined at the bedside on 09/15/2017. No change in the status. Patient is still unresponsive, on the ventilator. No vomiting. No hematuria, no hematochezia. Does have swelling of the whole body, anasarca. PHYSICAL EXAMINATION: VITAL SIGNS: Patient is afebrile. Her heart rate 75, respiratory rate 12, blood pressure 109/48, pulse oximetry 97% on ventilator. HEENT: Head normocephalic, atraumatic. Eyes closed. Nose patent. Mucous membranes moist. NECK: Supple. No carotid bruits. No JVD or thyromegaly. HEART: S1, S2 positive. ABDOMEN: Nondistended. Bowel sounds positive. EXTREMITIES: Have edema. NEUROLOGIC: The patient is unresponsive. Cannot be completed neurological examination. MEDICATIONS: Artificial tears in both eyes, aspirin, heparin, insulin, Levemir, meropenem, Protonix. LABORATORY DATA: Hemoglobin 8.3, hematocrit 25.3, white blood cells 16.3, platelets 98. Sodium 143, potassium 4.8, BUN 110, creatinine 4.9, glucose 229. AST 40, ALT 24. ASSESSMENT AND PLAN: Ms. Tamy Abbott 72-year-old female has hypoxic brain injury, status post cardiopulmonary arrest, history of dementia, hypertension, diabetes mellitus, peripheral vascular disease, history of osteomyelitis of the foot with nonhealing ulcers, urinary tract infection with extended-spectrum beta-lactamase, on antibiotics. Patient is do not resuscitate and do not intubate. Brain protocol procedure is done. Seen by the supervisor vegetable farming and neurologist and private duty lpn. Discussion done with patient's ICU staff. According to ICU staff, family made patient hospice and planning to extubate the patient. We will follow up. Deisy Gilman MD
[2017-09-16 07:03] LABS: BASO # 0.01 K/mm3 (0.0-2.0); BASO % 0.1 % (0.0-3.0); EOS # 0.3 (0.0-0.7); EOS % 2.4 % (1.5-5.0); GRAN # 10.47 (1.4-6.5); GRAN % 77.9 % (50.0-68.0); HEMOGLOBIN 7.7 g/dL (12.0-16.0); LYMPH # 1.4 (1.2-3.4); LYMPH % 10.3 % (22.0-35.0); MEAN CELL VOLUME 80.6 fl (80.0-105.0); MEAN CORPUSCULAR HEMOGLOBIN 26.6 pg (25.0-35.0); MONO # 1.3 (0.1-0.6); MONO % 9.3 % (1.0-6.0); PLATELET COUNT 122 10^3/uL (120.0-450.0); RBC 2.89 10^6/uL (3.5-6.1); RED CELL DISTRIBUTION WIDTH 17.5 % (11.5-14.5); WHITE BLOOD COUNT 13.4 10^3/ul (4.5-11.0)
[2017-09-16 07:29] LABS: ALB/GLOB RATIO 0.9 (1.1-1.8); ALBUMIN 2.3 g/dL (3.0-4.8); CALCIUM 8.1 mg/dL (8.4-10.5)
[2017-09-16] MEDS: Meropenem 500 MG in Sodium Chloride 0.9% 50 ML IVPB SCH (09:21)
[2017-09-16] MEDS: Aritificial Tears (15ml) OU PRN (09:29)
--- NOTE | 2017-09-16 09:48 | CP.PCM.PN ---
Subjective - Date & Time of Evaluation Date of Evaluation: 09/16/17 Time of Evaluation: 09:00 - Subjective Subjective: No changes in condition. Objective - Vital Signs/Intake and Output Vital Signs (last 24 hours): Temp Pulse Resp BP Pulse Ox 98.1 F 80 25 H 101/47 L 98 09/16/17 08:20 09/16/17 08:20 09/16/17 07:14 09/16/17 08:00 09/16/17 08:20 Intake and Output: 09/16/17 09/16/17 06:59 18:59 Intake Total 1210 Output Total 0 Balance 1210 - Medications Medications: Current Medications Artificial Tears (Artificial Tears) 0 ml OU Q6 PRN PRN Reason: Dry eyes Last Admin: 09/16/17 09:29 Dose: 1 unit Aspirin (Aspirin Chewable) 81 mg PO DAILY [facility] Last Admin: 09/16/17 09:07 Dose: 81 mg Heparin Sodium (Porcine) (Heparin) 5,000 units SC Q12 NIDHI PRN Reason: Protocol Last Admin: 09/15/17 23:00 Dose: 5,000 units Insulin Detemir (Levemir) 15 unit SC HS [facility] Last Admin: 09/15/17 23:00 Dose: 15 units Insulin Human Regular (Humulin R Med) 0 units SC Q6 NIDHI PRN Reason: Protocol Last Admin: 09/16/17 08:00 Dose: Not Given Nystatin (Nystop Topical Powder) 0 gm TOP Q8 PRN PRN Reason: Itching / Pruritus Last Admin: 09/11/17 12:37 Dose: 1 applic Pantoprazole Sodium (Protonix Inj) 40 mg IVP DAILY [facility] Last Admin: 09/16/17 09:07 Dose: 40 mg - Labs Labs: 09/16/17 06:00 09/16/17 06:00 PT 14.5 SECONDS (9.4-12.5) H 09/10/17 06:00 INR 1.26 (0.93-1.08) H 09/10/17 06:00 APTT 31.2 Seconds (25.1-36.5) 09/10/17 06:00 - Constitutional Appears: Chronically Ill - ENT Exam ENT Exam: Mucous Membranes Moist Additional comments: no gag reflex - Respiratory Exam Respiratory Exam: Decreased Breath Sounds Additional comments: intubted - Cardiovascular Exam Cardiovascular Exam: REGULAR RHYTHM, +S1, +S2 - GI/Abdominal Exam GI & Abdominal Exam: Hypoactive Bowel Sounds - Exam Additional comments: oliguria - Extremities Exam Extremities Exam: Normal Capillary Refill - Skin Skin Exam: Dry, Warm Assessment and Plan - Assessment and Plan (Free Text) Assessment: 72 year old female with history of HTN, COPD, sepsis who was admitted s/p cardiopulmonary arrest with respiratory failure,SHANTEL. She has had extensive neurological testing and been declared brain based upon these findings. She has no gag/pupil/corneal reflex. She does not react to any stimuli. She is not a candidate for organ donation. Spoke with patients daughter Obdulia via phone. Obdulia aware that her mother has been declared brin . I explained that I had spoken with Josh ( patients son ) twice yesterday regarding plan for terminal extubation. I informed her that Josh indicated family was plannng on extubation yesterday. I also informed her that once Josh arrived he informed us that he was waiting for his sister Obdulia to come. Josh left with out informing medical team of plan. When I reached Obdulia this morning, I asked if family was coming in today to withdraw life support. Obdulia stated that she was coming this morning. Offered to assist with pastoral support. She stated she wasn't aware that I had spoken with Josh yesterday. She steed that she would call Josh and get back to me with plan. 1:30 pm; Josh arrived with rn hyperbaric. He states that family is ready to terminally extubate. Sister Obdulia was contacted by phone, she is in agreement with withdrawal of life support. She is unable to come to hospital but asked that we proceed without her. Terminal extubation process explained in detail. Question answered. Josh signed consent for withdrawal of life support. Morphine given, patient terminally extubated. Josh, his rn hyperbaric and other family members at bedside when patient . End of life counseling provided Time spent with family in goals of care, end of life counseling/care, 50 minutes Plan: Terminal extubation Morphine 4 mg IVP at time of extubation End of life counseling
--- NOTE | 2017-09-16 09:53 | CP.PCM.PN ---
Subjective - Date & Time of Evaluation Date of Evaluation: 09/16/17 Time of Evaluation: 09:30 - Subjective Subjective: Mariya Luciano PGY-1 [facility] Progress Note for Dr. Cosby's service Patient seen and examined at bedside. Patient remains intubated and plans for terminal extubation planned for today. Patient's family spoke with rubber goods tester water and understand the condition of the patient. Palliative care following. GCS 3 Objective - Vital Signs/Intake and Output Vital Signs (last 24 hours): Temp Pulse Resp BP Pulse Ox 98.1 F 80 25 H 101/47 L 98 09/16/17 08:20 09/16/17 08:20 09/16/17 07:14 09/16/17 08:00 09/16/17 08:20 Intake and Output: 09/16/17 09/16/17 06:59 18:59 Intake Total 1210 Output Total 0 Balance 1210 - Medications Medications: Current Medications Artificial Tears (Artificial Tears) 0 ml OU Q6 PRN PRN Reason: Dry eyes Last Admin: 09/16/17 09:29 Dose: 1 unit Aspirin (Aspirin Chewable) 81 mg PO DAILY [facility] Last Admin: 09/16/17 09:07 Dose: 81 mg Heparin Sodium (Porcine) (Heparin) 5,000 units SC Q12 NIDHI PRN Reason: Protocol Last Admin: 09/15/17 23:00 Dose: 5,000 units Insulin Detemir (Levemir) 15 unit SC HS [facility] Last Admin: 09/15/17 23:00 Dose: 15 units Insulin Human Regular (Humulin R Med) 0 units SC Q6 NIDHI PRN Reason: Protocol Last Admin: 09/16/17 08:00 Dose: Not Given Nystatin (Nystop Topical Powder) 0 gm TOP Q8 PRN PRN Reason: Itching / Pruritus Last Admin: 09/11/17 12:37 Dose: 1 applic Pantoprazole Sodium (Protonix Inj) 40 mg IVP DAILY [facility] Last Admin: 09/16/17 09:07 Dose: 40 mg - Labs Labs: 09/16/17 06:00 09/16/17 06:00 PT 14.5 SECONDS (9.4-12.5) H 09/10/17 06:00 INR 1.26 (0.93-1.08) H 09/10/17 06:00 APTT 31.2 Seconds (25.1-36.5) 09/10/17 06:00 - Additional Findings Additional findings: Additional findings: - Constitutional Appears: Chronically Ill, Other (intubated, poorly responsive) - Head Exam Head Exam: ATRAUMATIC, NORMAL INSPECTION, NORMOCEPHALIC - Eye Exam Additional comments: Fixed without reaction to light - ENT Exam Additional comments: ET tube in place - Respiratory Exam Respiratory Exam: Clear to Ausculation Bilateral, NORMAL BREATHING PATTERN - Cardiovascular Exam Cardiovascular Exam: REGULAR RHYTHM, +S1, +S2 - GI/Abdominal Exam GI & Abdominal Exam: Soft, Normal Bowel Sounds - Exam : anuric - Extremities Exam Extremities Exam: +2 pitting edema b/l - Neurological Exam Additional comments: GCS 3 Absent gag, cough, corneal reflex Pupils fixed non reactive to light No spontaneous movement of extremities noted on exam Assessment and Plan - Assessment and Plan (Free Text) Assessment: Patient is a 72 y.o. female whose past medical history includes hypertension, hyperlipidemia, Type 2 diabetes mellitus, hypothyroidism, and dementia, who presents to the Emergency department transferred from [facility] brought in by EMS status post cardiac arrest. EMS achieved ROSC before arrival to ED, however patient coded again in ED and required CPR/ACLS protocol. Patient is currently intubated with imaging showing no blood flow to the brain. Poor Prognosis; Palliative care on board; Nephrology consulted for elevated Creatinine levels from baseline. Plan: Acute Renal Failure -Patient anuric; Renal function will continue declining; -Worsening renal function with relatively stable electrolyte status; no need for emergent dialysis -Metabolic acidosis improving; Patient only requiring 50% FIO2 to maintain adequate oxygen saturation -Clinically consistent with ATN in setting of cardiac arrest and sepsis; -Patient has no neurologic response with poor overall prognosis; -MRI Brain(09/12/17): Showing diffuse global anoxia with marked cerebral and cerebellar edema with mass effect on the brainstem, infra tentorial herniation and obstructive hydrocephalus -EEG(09/12/17) with electrocerebral silence -Brain flow (09/14/17) N/M showed no evidence of cerebral blood flow; poor prognosis -Family discussion occurred with rubber goods tester water and palliative care team; terminal extubation planned for today Hypernatremia (Resolved) -Na 143; Improved after fluids -Fluids dc'ed as patient is volume overloaded Metabolic Acidosis (Resolved) -per ABG ; pH 7.31; (09/12/17) Acidosis improving with oxygen delivery increased to 50 FIO2 -Avoid sodium bicarb as this will add to volume overload Sepsis -Continue Meropenem; WBC 16.3; Podiatry following -Avoid Vanc as levels are high and it is nephrotoxic; -Vanc trough 16.8 -[place] pyuria seen; Consider anti-fungal agent; Medical management discussed with costumed character, Dr. Cosby. Poor prognosis for patient; Family planned for extubation today.
--- NOTE | 2017-09-16 10:52 | CP.CCUPN ---
<Donn Rocha - Last Filed: 09/16/17 12:05> CCU Subjective - Physician Review Subjective (Free Text): Donn Rocha, PGY1 ICU Critical Care Progress Note for Dr. Galdamez Patient was seen and examined at bedside this morning. Patient is still intubated and on Low Tidal Volume Ventilation. ROS not obtained due to intubation. Patient is diagnosed as brain . Discussed in length with patients family about terminal extubation. Will meet with family today for final decision regarding terminal extubation. CCU Objective - Vital Signs / Intake & Output Vital Signs (Last 4 hours): Vital Signs Temp Pulse Resp BP Pulse Ox 09/16/17 08:20 98.1 F 80 98 09/16/17 08:10 97.9 F 79 98 09/16/17 08:00 101/47 L 09/16/17 07:59 97.7 F 78 98 09/16/17 07:50 97.7 F 85 99 09/16/17 07:40 97.5 F L 80 99 09/16/17 07:30 97.3 F L 82 99 09/16/17 07:27 97.3 F L 81 100/42 L 99 09/16/17 07:20 97.3 F L 79 99 09/16/17 07:14 25 H 98 09/16/17 07:10 97.2 F L 78 98 09/16/17 07:00 85/37 L 09/16/17 06:59 97.2 F L 76 98 09/16/17 06:50 97.0 F L 76 99 Intake and Output (Last 8hrs): Intake & Output 09/15/17 09/16/17 09/16/17 22:59 06:59 14:59 Intake Total 520 690 Output Total 0 Balance 520 690 Weight 96.615 kg Intake: IV 80 50 Femoral 80 50 Tube Feeding 440 640 Output: Urine 0 Urine, Voided 0 Other: # Bowel Movements 1 1 - Physical Exam Head: Positive for: Atraumatic, Normocephalic Pupils: Positive for: Non-Reactive, Other (dilated, +3 pupils both sides, No corneal reflex) Conjunctiva: Positive for: Normal Mouth: Positive for: Moist Mucous Membranes, Other (intubated, no gag reflex) Nose (External): Positive for: Other (NG tube in place) Respiratory/Chest: Positive for: Other (Coarse breath sound bilaterally). Negative for: Wheezes, Rales, Rhonchi Cardiovascular: Positive for: Regular Rate and Rhythm, Normal S1, S2. Negative for: Murmurs Abdomen: Positive for: Normal Bowel Sounds, Other (Obese) Back: Positive for: Normal Inspection Upper Extremity: Positive for: Normal Inspection. Negative for: Cyanosis, Edema Lower Extremity: Positive for: Edema (+3 Pitting edema), Other (L foot dressed by Dr. Anderson for diabetic ulcer) Neurological: Positive for: Other (Unresponsive). Negative for: GCS=15 (GCS 3) Skin: Positive for: Dry, Other (Anasarca ). Negative for: Warm (Upper and lower extremities cool to touch), Rashes - Medications Active Medications: Active Medications Generic Name Dose Route Start Last Admin Trade Name Freq PRN Reason Stop Dose Admin Artificial Tears 0 ml 09/14/17 10:04 09/16/17 09:29 Artificial Tears OU 1 unit Q6 PRN Administration Dry eyes Aspirin 81 mg 09/12/17 10:00 09/16/17 09:07 Aspirin Chewable PO 81 mg DAILY NIDHI Administration Heparin Sodium (Porcine) 5,000 units 09/09/17 22:00 09/15/17 23:00 Heparin SC 5,000 units Q12 NIDHI Administration Protocol Insulin Detemir 15 unit 09/13/17 22:00 09/15/17 23:00 Levemir SC 15 units HS NIDHI Administration Insulin Human Regular 0 units 09/09/17 12:00 09/16/17 08:00 Humulin R Med SC Not Given Q6 [facility] Protocol Nystatin 0 gm 09/09/17 13:29 09/11/17 12:37 Nystop Topical Powder TOP 1 applic Q8 PRN Administration Itching / Pruritus Pantoprazole Sodium 40 mg 09/09/17 10:00 09/16/17 09:07 Protonix Inj IVP 40 mg DAILY NIDHI Administration - Patient Studies Lab Studies: Lab Studies 09/16/17 09/16/17 09/15/17 Range/Units 06:00 06:00 23:10 WBC 13.4 H (4.5-11.0) 10^3/ul RBC 2.89 L (3.5-6.1) 10^6/uL Hgb 7.7 L (12.0-16.0) g/dL Hct 23.3 L (36.0-48.0) % MCV 80.6 (80.0-105.0) fl MCH 26.6 (25.0-35.0) pg MCHC 33.0 (31.0-37.0) g/dl RDW 17.5 H (11.5-14.5) % Plt Count 122 (120.0-450.0) 10^3/uL Gran % 77.9 H (50.0-68.0) % Lymph % (Auto) 10.3 L (22.0-35.0) % [place] % (Auto) 9.3 H (1.0-6.0) % Eos % (Auto) 2.4 (1.5-5.0) % Baso % (Auto) 0.1 (0.0-3.0) % Gran # 10.47 H (1.4-6.5) Lymph # (Auto) 1.4 (1.2-3.4) [place] # (Auto) 1.3 H (0.1-0.6) Eos # (Auto) 0.3 (0.0-0.7) Baso # (Auto) 0.01 (0.0-2.0) K/mm3 Sodium 143 (132-148) mmol/L Potassium 4.8 (3.6-5.0) mmol/L Chloride 113 H (98-107) mmol/L Carbon Dioxide 18 L (21-33) mmol/L Anion Gap 17 (10-20) BUN 121 H* (7-21) mg/dL Creatinine 5.2 H (0.7-1.2) mg/dl Est GFR ( Amer) 10 Est GFR (Non-Af Amer) 8 POC Glucose (mg/dL) 178 H (65-110) mg/dL Random Glucose 143 H (70-110) mg/dL Calcium 8.1 L (8.4-10.5) mg/dL Phosphorus 5.2 H (2.5-4.5) mg/dL Magnesium 2.1 (1.7-2.2) mg/dL Total Bilirubin 0.3 (0.2-1.3) mg/dL AST 38 H (14-36) U/L ALT 20 (7-56) U/L Alkaline Phosphatase 78 (38-126) U/L Total Protein 4.8 L (5.8-8.3) g/dL Albumin 2.3 L (3.0-4.8) g/dL Globulin 2.6 gm/dL Albumin/Globulin Ratio 0.9 L (1.1-1.8) 09/15/17 09/15/17 Range/Units 16:22 11:43 WBC (4.5-11.0) 10^3/ul RBC (3.5-6.1) 10^6/uL Hgb (12.0-16.0) g/dL Hct (36.0-48.0) % MCV (80.0-105.0) fl MCH (25.0-35.0) pg MCHC (31.0-37.0) g/dl RDW (11.5-14.5) % Plt Count (120.0-450.0) 10^3/uL Gran % (50.0-68.0) % Lymph % (Auto) (22.0-35.0) % [place] % (Auto) (1.0-6.0) % Eos % (Auto) (1.5-5.0) % Baso % (Auto) (0.0-3.0) % Gran # (1.4-6.5) Lymph # (Auto) (1.2-3.4) [place] # (Auto) (0.1-0.6) Eos # (Auto) (0.0-0.7) Baso # (Auto) (0.0-2.0) K/mm3 Sodium (132-148) mmol/L Potassium (3.6-5.0) mmol/L Chloride (98-107) mmol/L Carbon Dioxide (21-33) mmol/L Anion Gap (10-20) BUN (7-21) mg/dL Creatinine (0.7-1.2) mg/dl Est GFR ( Amer) Est GFR (Non-Af Amer) POC Glucose (mg/dL) 186 H 208 H (65-110) mg/dL Random Glucose (70-110) mg/dL Calcium (8.4-10.5) mg/dL Phosphorus (2.5-4.5) mg/dL Magnesium (1.7-2.2) mg/dL Total Bilirubin (0.2-1.3) mg/dL AST (14-36) U/L ALT (7-56) U/L Alkaline Phosphatase (38-126) U/L Total Protein (5.8-8.3) g/dL Albumin (3.0-4.8) g/dL Globulin gm/dL Albumin/Globulin Ratio (1.1-1.8) Laboratory Results - last 24 hr 09/15/17 09/15/17 09/15/17 11:43 16:22 23:10 WBC RBC Hgb Hct MCV MCH MCHC RDW Plt Count Gran % Lymph % (Auto) [place] % (Auto) Eos % (Auto) Baso % (Auto) Gran # Lymph # (Auto) [place] # (Auto) Eos # (Auto) Baso # (Auto) Sodium Potassium Chloride Carbon Dioxide Anion Gap BUN Creatinine Est GFR ( Amer) Est GFR (Non-Af Amer) POC Glucose (mg/dL) 208 H 186 H 178 H Random Glucose Calcium Phosphorus Magnesium Total Bilirubin AST ALT Alkaline Phosphatase Total Protein Albumin Globulin Albumin/Globulin Ratio 09/16/17 09/16/17 06:00 06:00 WBC 13.4 H RBC 2.89 L Hgb 7.7 L Hct 23.3 L MCV 80.6 MCH 26.6 MCHC 33.0 RDW 17.5 H Plt Count 122 Gran % 77.9 H Lymph % (Auto) 10.3 L [place] % (Auto) 9.3 H Eos % (Auto) 2.4 Baso % (Auto) 0.1 Gran # 10.47 H Lymph # (Auto) 1.4 [place] # (Auto) 1.3 H Eos # (Auto) 0.3 Baso # (Auto) 0.01 Sodium 143 Potassium 4.8 Chloride 113 H Carbon Dioxide 18 L Anion Gap 17 BUN 121 H* Creatinine 5.2 H Est GFR ( Amer) 10 Est GFR (Non-Af Amer) 8 POC Glucose (mg/dL) Random Glucose 143 H Calcium 8.1 L Phosphorus 5.2 H Magnesium 2.1 Total Bilirubin 0.3 AST 38 H ALT 20 Alkaline Phosphatase 78 Total Protein 4.8 L Albumin 2.3 L Globulin 2.6 Albumin/Globulin Ratio 0.9 L Fingerstick Blood Sugar Results: 143 Review of Systems - Review of Systems Systems not reviewed;Unavailable: Intubated Critical Care Progress Note - Ventilator Checklist Head of Bed 30 Degrees: Yes Daily Sedation Vacation: Yes Daily Assessment of Readiness to Wean: Yes Daily Spontaneous Breathing Trial: Yes PUD Prophalyxis: Yes DVT Prophylaxis: Yes Oral Care with Chlorhexidine Gluconate {CHG}: Yes - Vent Settings MODE:: PRVC TIDAL VOLUME:: 380 RESP RATE:: 25 FIO2:: 50 PEEP:: 7 - Extremities/Vascular Does the Patient have a Central Venous Catheter?: Yes Insertion Site: Femoral Vein Does the Patient need a Central Venous Catheter?: Yes Does the Patient have a Padilla Catheter?: No Does the Patient need a Padilla Catheter?: No - Prophylaxis GI Prophylaxis GI: PPI - Prophylaxis DVT Prophylaxis DVT: Heparin SQ - Nutrition Nutrition: Nutrition Category Date Time Status NPO Diet [DIET] Diets 09/09/17 Breakfast Ordered Assessment/Plan - Assessment and Plan (Free Text) Assessment: 72 y/o Female with a PMH of HTN, DM2, hypothyroidism, sacral decubitus, and recurrent falls who presents from senior living after being found unresponsive (downtime unknown), with no pulses and in asystole. ACLS was initiated and ROSC obtained (please see ED notes and ICU consult note for further information). She was transferred to ICU for further management. Patient initially required pressors for BP support but is off now. Started on low tidal volume ventilation (LTVV) strategy for ARDS. Sedation and paralytic agents (Nimbex) were used but are off now. Neuro consulted and CT head showed anoxic encephalopathy. MRI brain showed global anoxic injury with infra- tentorial herniation at brainstem with mass effect. Brain flow study showed no intracerebral blood flow, further confirming brain . On exam, patient has absent pupillary, corneal, and gag reflex. Overall patient prognosis is very poor and she was declared DNR by family. Palliative care is following. Discussed with family about terminal extubation and awaiting their final decision. Plan: Neuro: - MRI Brain (09/13): global anoxic injury with infra-tentorial herniation at brainstem with mass effect. - CT head (09/11): anoxic encephalopathy - Neurology is consulted, recs appreciated - Negative cold water caloric stimulation test (09/14) - Brain Flow Study (09/14): no evidence of intracerebral blood flow Cardio: - Cardio is consulted, recs appreciated - BP managed: patient off pressors - Echo (09/10): LV normal size, mild concentric LV hypertrophy, EF 50%, trace aortic and mitral regurgitation. Large left pleural effusion and small pericardial effusion. No vegetation or thrombus. Pulm: - ET tube in place: discussed with family regarding terminal extubation - CT of chest showed extensive bilateral airspace disease with air bronchograms consistent with bilateral lobar pneumonia - Low tidal volume ventilation with TV 380, RR 25, FiO2 50%, PEEP 7 GI: - CT abdomen/pelvis showed distended gallbladder, moderate small bowel thickening and anasarca - NPO - GI ppx Renal: - d/c rajni (09/14) - Worsening renal function: trending upwards BUN/Cr - No dialysis, as per Nephrology : - History of ESBL ID - Downtrending WBC - ID is consulted, recs appreciated - Continue antibiotics per ID: [email or web address], day #7 - Vancomycin is given based on trough level by ID - History of ESBL: maintain contact precautions, c/w antibiotics Heme - Leukocytosis is noted, with no bandemia - DVT ppx Endo - Hyperglycemia: started on Levemir and c/w ISS - Maintain euglycemia - ISS and Accuchecks Q6 Dispo: Pending family's final decision today in regards to terminal extubation. Case was reviewed and discussed with attending Physician Dr. Galdamez <Germain Galdamez - Last Filed: 09/16/17 12:42> CCU Objective - Vital Signs / Intake & Output Intake and Output (Last 8hrs): Intake & Output 09/15/17 09/16/17 09/16/17 22:59 06:59 14:59 Intake Total 520 690 Output Total 0 Balance 520 690 Weight 213 lb Intake: IV 80 50 Femoral 80 50 Tube Feeding 440 640 Output: Urine 0 Urine, Voided 0 Other: # Bowel Movements 1 1 - Medications Active Medications: Active Medications Generic Name Dose Route Start Last Admin Trade Name Freq PRN Reason Stop Dose Admin Artificial Tears 0 ml 09/14/17 10:04 09/16/17 09:29 Artificial Tears OU 1 unit Q6 PRN Administration Dry eyes Aspirin 81 mg 09/12/17 10:00 09/16/17 09:07 Aspirin Chewable PO 81 mg DAILY NIDHI Administration Heparin Sodium (Porcine) 5,000 units 09/09/17 22:00 07/12/18 23:00 Heparin SC 5,000 units Q12 [facility] Administration Protocol Insulin Detemir 15 unit 09/13/17 22:00 09/15/17 23:00 Levemir SC 15 units HS NIDHI Administration Insulin Human Regular 0 units 09/09/17 12:00 09/16/17 11:56 Humulin R Med SC Not Given Q6 [facility] Protocol Nystatin 0 gm 09/09/17 13:29 09/11/17 12:37 Nystop Topical Powder TOP 1 applic Q8 PRN Administration Itching / Pruritus Pantoprazole Sodium 40 mg 09/09/17 10:00 09/16/17 09:07 Protonix Inj IVP 40 mg DAILY NIDHI Administration - Patient Studies Lab Studies: Lab Studies 09/16/17 09/16/17 09/16/17 Range/Units 11:18 06:00 06:00 WBC 13.4 H (4.5-11.0) 10^3/ul RBC 2.89 L (3.5-6.1) 10^6/uL Hgb 7.7 L (12.0-16.0) g/dL Hct 23.3 L (36.0-48.0) % MCV 80.6 (80.0-105.0) fl MCH 26.6 (25.0-35.0) pg MCHC 33.0 (31.0-37.0) g/dl RDW 17.5 H (11.5-14.5) % Plt Count 122 (120.0-450.0) 10^3/uL Gran % 77.9 H (50.0-68.0) % Lymph % (Auto) 10.3 L (22.0-35.0) % [place] % (Auto) 9.3 H (1.0-6.0) % Eos % (Auto) 2.4 (1.5-5.0) % Baso % (Auto) 0.1 (0.0-3.0) % Gran # 10.47 H (1.4-6.5) Lymph # (Auto) 1.4 (1.2-3.4) [place] # (Auto) 1.3 H (0.1-0.6) Eos # (Auto) 0.3 (0.0-0.7) Baso # (Auto) 0.01 (0.0-2.0) K/mm3 Sodium 143 (132-148) mmol/L Potassium 4.8 (3.6-5.0) mmol/L Chloride 113 H (98-107) mmol/L Carbon Dioxide 18 L (21-33) mmol/L Anion Gap 17 (10-20) BUN 121 H* (7-21) mg/dL Creatinine 5.2 H (0.7-1.2) mg/dl Est GFR ( Amer) 10 Est GFR (Non-Af Amer) 8 POC Glucose (mg/dL) 136 H (65-110) mg/dL Random Glucose 143 H (70-110) mg/dL Calcium 8.1 L (8.4-10.5) mg/dL Phosphorus 5.2 H (2.5-4.5) mg/dL Magnesium 2.1 (1.7-2.2) mg/dL Total Bilirubin 0.3 (0.2-1.3) mg/dL AST 38 H (14-36) U/L ALT 20 (7-56) U/L Alkaline Phosphatase 78 (38-126) U/L Total Protein 4.8 L (5.8-8.3) g/dL Albumin 2.3 L (3.0-4.8) g/dL Globulin 2.6 gm/dL Albumin/Globulin Ratio 0.9 L (1.1-1.8) 09/15/17 09/15/17 Range/Units 23:10 16:22 WBC (4.5-11.0) 10^3/ul RBC (3.5-6.1) 10^6/uL Hgb (12.0-16.0) g/dL Hct (36.0-48.0) % MCV (80.0-105.0) fl MCH (25.0-35.0) pg MCHC (31.0-37.0) g/dl RDW (11.5-14.5) % Plt Count (120.0-450.0) 10^3/uL Gran % (50.0-68.0) % Lymph % (Auto) (22.0-35.0) % [place] % (Auto) (1.0-6.0) % Eos % (Auto) (1.5-5.0) % Baso % (Auto) (0.0-3.0) % Gran # (1.4-6.5) Lymph # (Auto) (1.2-3.4) [place] # (Auto) (0.1-0.6) Eos # (Auto) (0.0-0.7) Baso # (Auto) (0.0-2.0) K/mm3 Sodium (132-148) mmol/L Potassium (3.6-5.0) mmol/L Chloride (98-107) mmol/L Carbon Dioxide (21-33) mmol/L Anion Gap (10-20) BUN (7-21) mg/dL Creatinine (0.7-1.2) mg/dl Est GFR ( Amer) Est GFR (Non-Af Amer) POC Glucose (mg/dL) 178 H 186 H (65-110) mg/dL Random Glucose (70-110) mg/dL Calcium (8.4-10.5) mg/dL Phosphorus (2.5-4.5) mg/dL Magnesium (1.7-2.2) mg/dL Total Bilirubin (0.2-1.3) mg/dL AST (14-36) U/L ALT (7-56) U/L Alkaline Phosphatase (38-126) U/L Total Protein (5.8-8.3) g/dL Albumin (3.0-4.8) g/dL Globulin gm/dL Albumin/Globulin Ratio (1.1-1.8) Laboratory Results - last 24 hr 09/15/17 09/15/17 09/16/17 16:22 23:10 06:00 WBC 13.4 H RBC 2.89 L Hgb 7.7 L Hct 23.3 L MCV 80.6 MCH 26.6 MCHC 33.0 RDW 17.5 H Plt Count 122 Gran % 77.9 H Lymph % (Auto) 10.3 L [place] % (Auto) 9.3 H Eos % (Auto) 2.4 Baso % (Auto) 0.1 Gran # 10.47 H Lymph # (Auto) 1.4 [place] # (Auto) 1.3 H Eos # (Auto) 0.3 Baso # (Auto) 0.01 Sodium Potassium Chloride Carbon Dioxide Anion Gap BUN Creatinine Est GFR ( Amer) Est GFR (Non-Af Amer) POC Glucose (mg/dL) 186 H 178 H Random Glucose Calcium Phosphorus Magnesium Total Bilirubin AST ALT Alkaline Phosphatase Total Protein Albumin Globulin Albumin/Globulin Ratio 09/16/17 09/16/17 06:00 11:18 WBC RBC Hgb Hct MCV MCH MCHC RDW Plt Count Gran % Lymph % (Auto) [place] % (Auto) Eos % (Auto) Baso % (Auto) Gran # Lymph # (Auto) [place] # (Auto) Eos # (Auto) Baso # (Auto) Sodium 143 Potassium 4.8 Chloride 113 H Carbon Dioxide 18 L Anion Gap 17 BUN 121 H* Creatinine 5.2 H Est GFR ( Amer) 10 Est GFR (Non-Af Amer) 8 POC Glucose (mg/dL) 136 H Random Glucose 143 H Calcium 8.1 L Phosphorus 5.2 H Magnesium 2.1 Total Bilirubin 0.3 AST 38 H ALT 20 Alkaline Phosphatase 78 Total Protein 4.8 L Albumin 2.3 L Globulin 2.6 Albumin/Globulin Ratio 0.9 L Critical Care Progress Note - Nutrition Nutrition: Nutrition Category Date Time Status NPO Diet [DIET] Diets 09/09/17 Breakfast Ordered Assessment/Plan - Assessment and Plan (Free Text) Plan: Patient seen and examined on rounds with resident, agree with note with following additions/exceptions: Patient is 72yo female with PMhx of dementia, Hypertension, DM2, hypothyroidism , sacral decubitus, recurrent falls, [place] s/p cardiac arrest, asystole, unknown downtime, intubated in the field, had another cardiac arrest in the hospital, asystole, ROSC obtained. Currently intubated, off sedation. On exam does not overbreath the ventilator, no gag reflex, no corneal reflexes present, neurology following MRI brain done, shows diffuse anoxic brain injury Brain flow study completed, no flow noted, consistent with brain Palliative care following, pt is DNR Palliative care spoke to the family again today, who reported that they will proceed with terminal extubation today. Awaiting terminal extubation
--- NOTE | 2017-09-16 11:23 | CP.PCM.PN ---
Subjective - Date & Time of Evaluation Date of Evaluation: 09/15/17 Time of Evaluation: 09:20 - Subjective Subjective: Continues to be on the ventilator and poorly responsive. No fevers overnight. Objective - Vital Signs/Intake and Output Vital Signs (last 24 hours): Temp Pulse Resp BP Pulse Ox 97.0 F L 75 25 H 109/48 L 98 09/15/17 20:40 09/15/17 20:40 09/15/17 10:00 09/15/17 20:00 09/15/17 20:40 Intake and Output: 09/15/17 09/16/17 18:59 06:59 Intake Total 640 520 Output Total 0 0 Balance 640 520 - Medications Medications: Current Medications Artificial Tears (Artificial Tears) 0 ml OU Q6 PRN PRN Reason: Dry eyes Last Admin: 09/15/17 09:52 Dose: 1 unit Aspirin (Aspirin Chewable) 81 mg PO DAILY [facility] Last Admin: 09/15/17 09:35 Dose: 81 mg Heparin Sodium (Porcine) (Heparin) 5,000 units SC Q12 NIDHI PRN Reason: Protocol Last Admin: 09/15/17 09:36 Dose: 5,000 units Meropenem 500 mg/ Sodium (Chloride) 50 mls @ 100 mls/hr IVPB Q12 NIDHI PRN Reason: Protocol Stop: 09/18/17 22:01 Last Admin: 09/15/17 09:36 Dose: 100 mls/hr Insulin Detemir (Levemir) 15 unit SC HS [facility] Last Admin: 09/14/17 23:00 Dose: 15 units Insulin Human Regular (Humulin R Med) 0 units SC Q6 NIDHI PRN Reason: Protocol Last Admin: 09/15/17 17:56 Dose: 1 units Nystatin (Nystop Topical Powder) 0 gm TOP Q8 PRN PRN Reason: Itching / Pruritus Last Admin: 09/11/17 12:37 Dose: 1 applic Pantoprazole Sodium (Protonix Inj) 40 mg IVP DAILY [facility] Last Admin: 09/15/17 09:36 Dose: 40 mg - Labs Labs: 09/15/17 06:30 09/15/17 06:30 PT 14.5 SECONDS (9.4-12.5) H 09/10/17 06:00 INR 1.26 (0.93-1.08) H 09/10/17 06:00 APTT 31.2 Seconds (25.1-36.5) 09/10/17 06:00 - Constitutional Appears: Chronically Ill, Other (intubated, poorly responsive) - Head Exam Head Exam: NORMAL INSPECTION - ENT Exam Additional comments: ET tube in place - Respiratory Exam Respiratory Exam: Decreased Breath Sounds - Cardiovascular Exam Cardiovascular Exam: +S1, +S2 - GI/Abdominal Exam GI & Abdominal Exam: Soft. absent: Tenderness - Extremities Exam Additional comments: left groin TLC in place Assessment and Plan - Assessment and Plan (Free Text) Plan: Assessment Systemic Inflammatory response syndrome after cardiorespiratory arrest with VDRF , R/O severe sepsis from bilateral pneumonia history of right foot dry gangrene with ulceration DM HTN hyperthyroidism dementia obesity with BMI 34 Plan on Merrem day 7 - will d/c antibiotics and observe overall prognosis is poor - as per nurse, patient is for terminal extubation would recommend to remove left groin TLC since it is unnecessary
[2017-09-16 13:06] VITALS: BP 95/44; TEMP 98.4
[2017-09-16] MEDS ORDERED: Morphine 4 mg/ml ISec IVP STA (13:29)
--- NOTE | 2017-09-16 14:07 | CP.PCM.PRO ---
Pronouncement of Note - Clinical Findings Physical Exam: No Response Verbal/Painful Stimuli, Absent Peripheral Pulses{ Carotid & Femoral}, Absent Heart & Breath Sounds, No Pupillary Light Reflex, No Corneal Reflex, Pupils Fixed & Dilated, Absence of Vital Signs - Pronouncement Time Time of Pronouncement of : 14:01 (Terminal extubation at 13:47 ) - Notifications Pronouncement Notifications: Family Notified (Family members present at bedside. ), Atending Notified Media Marketing Coordinator Notified: Yes
[2017-09-16 14:15] VITALS: PULSE 26; RESP 7; O2SAT 45
== END 2017-09-16 14:01 | DRG 870 ==
LOC: ED 04:49 → ERH 05:58 → CCU 07:11
PROVIDERS: ADMIT Internal Medicine; ATTEND Internal Medicine
PROC: 5A1955Z Respiratory Ventilation, Greater than 96 Consecutive Hours (ICD-10-PCS; principal; 2017-09-09)
PROC: 06HY33Z Insertion of Infusion Device into Lower Vein, Percutaneous Approach (ICD-10-PCS; 2017-09-09)
PROC: B54CZZA Ultrasonography of Left Lower Extremity Veins, Guidance (ICD-10-PCS; 2017-09-09)
DX: A41.9 Sepsis, unspecified organism (principal); N17.0 Acute kidney failure with tubular necrosis; G93.6 Cerebral edema; J69.0 Pneumonitis due to inhalation of food and vomit; J96.91 Respiratory failure, unspecified with hypoxia; E87.0 Hyperosmolality and hypernatremia; E87.2 Acidosis; G91.1 Obstructive hydrocephalus; G93.1 Anoxic brain damage, not elsewhere classified; J44.0 Chronic obstructive pulmonary disease with (acute) lower respiratory infection; Z99.11 Dependence on respirator [ventilator] status; I46.9 Cardiac arrest, cause unspecified; R65.20 Severe sepsis without septic shock; D64.9 Anemia, unspecified; E03.9 Hypothyroidism, unspecified; E05.90 Thyrotoxicosis, unspecified without thyrotoxic crisis or storm; E11.51 Type 2 diabetes mellitus with diabetic peripheral angiopathy without gangrene; E11.621 Type 2 diabetes mellitus with foot ulcer; E11.69 Type 2 diabetes mellitus with other specified complication; E66.9 Obesity, unspecified; E78.5 Hyperlipidemia, unspecified; F03.90 Unspecified dementia, unspecified severity, without behavioral disturbance, psychotic disturbance, mood disturbance, and anxiety; I11.0 Hypertensive heart disease with heart failure; I50.9 Heart failure, unspecified; L97.529 Non-pressure chronic ulcer of other part of left foot with unspecified severity; Z51.5 Encounter for palliative care; Z66 Do not resuscitate; Z68.34 Body mass index [BMI] 34.0-34.9, adult; Z79.4 Long term (current) use of insulin; Z86.19 Personal history of other infectious and parasitic diseases; Z87.440 Personal history of urinary (tract) infections; Z87.891 Personal history of nicotine dependence; Z90.710 Acquired absence of both cervix and uterus